=== PATIENT | male | born 1990 | race Caucasian/White ===

== ENCOUNTER 2016-11-10 12:44 | Inpatient (IN) | payer MEDICARE, OTHER ==
[~2016-11-10] VITALS: Ht 160 cm; Wt 249.1 kg
[~2016-11-10 12:44] MED LIST: ACET325S8 PO; BACL20TA PO; DIFFCHW PO; DUONI NEB; FLUC100T41 PO; FURO1TAB93 PO; HUMALOGP SQ; KLOR20TA6 PO; LANTUS2P SQ; LEVO50TA4 PO; LEXA20TA PO; MAGN1SOL2 PO; MORP100T40 PO; NYST100024 TOP; OMEP20TA PO; OXYB5 PO; RIVA20 PO; ROXI30TA14 PO; SENN8.6T19 PO; SSD1CRE TOP; SUPETAB30 PO; VITA500C PO; WELLTAB39 PO; XANA2TAB2 PO; ZOLP10TA3 PO; [UNRECOGNIZED DRUG - CODE] IM; [UNRECOGNIZED DRUG - CODE] IVF; [UNRECOGNIZED DRUG - CODE] IVF; [UNRECOGNIZED DRUG - CODE] TOPICAL
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
[2016-11-10 14:04] VITALS: BP 121/58; PULSE 81; RESP 18; TEMP 98.4; O2SAT 95
[2016-11-10 14:07] VITALS: BP 121/85; PULSE 85; RESP 18; TEMP 98.4; O2SAT 96
[2016-11-10 14:50] LABS: AMPHETAMINE, URINE NEG (NEG); BARBITURATES, URINE NEG (NEG); COCAINE, URINE NEG (NEG)
[2016-11-10 14:54] LABS: AUTOMATED NEUTROPHIL # 7.6 TH/MM3 (1.8-7.7); BASOPHIL % 0.2 % (0.0-2.0); EOSINOPHIL # 0.3 TH/MM3 (0-0.4); EOSINOPHIL % 2.4 % (0.0-4.0); HEMATOCRIT 37.6 % (39.0-51.0); LYMPH % 26.4 % (9.0-44.0); MEAN CELL VOLUME 71.6 FL (80.0-100.0); MEAN CORPUSCULAR HEMOGLOBIN 22.7 PG (27.0-34.0); MEAN CORPUSCULAR HGB CONC 31.7 % (32.0-36.0); MONO % 4.5 % (0.0-8.0); NEUT % 66.5 % (16.0-70.0); PLATELET COUNT 388 TH/MM3 (150-450); RED BLOOD COUNT 5.25 MIL/MM3 (4.50-5.90); RED CELL DISTRIBUTION WIDTH 20.7 % (11.6-17.2); WHITE BLOOD COUNT 11.5 TH/MM3 (4.0-11.0)
[2016-11-10 14:57] LABS: HEMO FLAGS AUTO DIFF
[2016-11-10 15:13] LABS: ANION GAP 7 MEQ/L (5-15); AST (GOT) 9 U/L (15-37); BICARBONATE 30.4 MEQ/L (21.0-32.0); BLOOD UREA NITROGEN 22 MG/DL (7-18); CHLORIDE 95 MEQ/L (98-107); GLOMERULAR FILTRATION RATE 142 ML/MIN (>89); POTASSIUM 4.1 MEQ/L (3.5-5.1); SODIUM (NA) 132 MEQ/L (136-145)
[2016-11-10 15:17] LABS: ALKALINE PHOSPHATASE 106 U/L (45-117); ALT (GPT) 15 U/L (12-78); TOTAL BILIRUBIN ADULT 0.3 MG/DL (0.2-1.0)
[2016-11-10 15:33] LABS: PLATELET ESTIMATE SMEAR NORMAL (NORMAL); PLATELET MORPHOLOGY ENLARGED (NORMAL); SCAN/DIFF AUTO DIFF CONFIRMED
[2016-11-10] MEDS ORDERED: INSULIN HUMAN REGULAR 1,000 UNITS/10 ML VIAL SQ ONE (16:00)
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
[2016-11-10] MEDS ORDERED: MORP1TAB25 PO (18:47)
[2016-11-10] MEDS ORDERED: PROM25TA5 PO (18:47)
[2016-11-10] MEDS ORDERED: PERI0.126 SWISH-SPIT (18:47)
[2016-11-10] MEDS ORDERED: ROXI30TA14 PO (18:47)
[2016-11-10] MEDS ORDERED: MORP1TAB27 PO (18:47)
[2016-11-10] MEDS ORDERED: XANA2TAB2 PO (18:50)
[2016-11-10] MEDS ORDERED: TRAZ100T4 PO (18:50)
[2016-11-10] MEDS ORDERED: BUPR150XL PO (18:52)
[2016-11-10] MEDS ORDERED: ZANT150T2 PO (18:52)
[2016-11-10] MEDS ORDERED: WELLTAB39 PO (18:52)
[2016-11-10] MEDS ORDERED: NU-IRON PO (18:58)
[2016-11-10] MEDS ORDERED: AMBI10TA PO (18:58)
[2016-11-10] MEDS ORDERED: OXYB5TAB PO (18:58)
[2016-11-10] MEDS ORDERED: SIME80CH CHEW (18:58)
[2016-11-10] MEDS ORDERED: DIFFCHW PO (18:58)
[2016-11-10] MEDS ORDERED: THERTAB17 PO (19:04)
[2016-11-10] MEDS ORDERED: HUMALOG SQ (19:10)
[2016-11-10] MEDS ORDERED: C 50TAB PO (19:10)
[2016-11-10] MEDS ORDERED: SENN8.6T8 PO (19:10)
[2016-11-10] MEDS ORDERED: FURO1TAB60 PO (19:10)
[2016-11-10] MEDS ORDERED: ALBU0.08 NEB (19:10)
[2016-11-10] MEDS ORDERED: XARE20TA PO (19:18)
[2016-11-10] MEDS ORDERED: BACL20TA PO (19:18)
[2016-11-10] MEDS ORDERED: LANTUS2P SQ (19:18)
[2016-11-10] MEDS ORDERED: LEVO50TA4 PO (19:18)
[2016-11-10] MEDS ORDERED: MAPA325T PO (19:18)
[2016-11-10] MEDS ORDERED: POTA1TAB4 PO (19:18)
[2016-11-10] MEDS ORDERED: COLL30T TOPICAL (19:22)
[2016-11-10] MEDS ORDERED: LEXA20TA PO (19:22)
[2016-11-10] MEDS ORDERED: LIPI40TA PO (19:24)
[2016-11-10] MEDS ORDERED: ANTI1CRE6 TOPICAL (19:24)
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
[2016-11-10 20:56] VITALS: BP 122/61; PULSE 86; RESP 19; O2SAT 92
[2016-11-10 21:45] LABS: BACTERIA, URINE MANY /hpf; BLOOD, URINE NEG (NEG); CALCIUM OXALATE CRYSTALS,URINE OCC /hpf; GLUCOSE,URINE NEG (NEG); KETONE, URINE NEG (NEG); SQUAMOUS EPITHELIAL CELL URINE 1 /hpf (0-5); URINE COLOR YELLOW (YELLW/STRAW)
[2016-11-10 21:46] LABS: NITRITE,URINE POS (NEG)
[2016-11-11] VITALS (9 sets, daily range): BP systolic 111–140; BP diastolic 54–89; PULSE 88–104; RESP 6–21; O2SAT 96–100
--- NOTE | 2016-11-11 01:29 | HHI.HP ---
HPI Service [facility] Primary Care Physician No Primary Care Physician Admission Diagnosis Inability to Ambulate Diagnoses: Chief Complaint: Multiple wounds, catheter change Travel History International Travel<30 Days: No Contact w/Intl Traveler <30 Da: No Traveled to Known Affected Are: No History of Present Illness 25 y/o male with a history of paraplegia, neurogenic bladder, HTN, chronic reoccurring DVT, chronic pain, LAKA, sleep apnea, CHF was brought into the ED as a parker act because he was threatening staff and using a tazor. Patient is a resident at [facility]note 3] in [place] and he states staff and him were playing with a tazor. Staff said he was trying to harm the staff, but he states he was not trying to. He states he is miss treated there. He states for the last month he has felt fatigued and had nausea and vomiting almost every night. Only fever he had was 2 weeks ago. Denies diarrhea, chest pain or sob. He complains of hematuria and was told last year at [facility] he has gastric ulcers, but feels he is still bleeding. Last EGD done at [facility] was 2012. He states he has multiple wounds on his sacrum, back, right thigh and left hip, and has not had wound care in 2 weeks. Patient also states his Montelongo catheter has not been replaced in 3 months and last time it had to be replaced under cystoscopy. According to the ER physician [facility] has refused to take the patient back, placement may be difficult. Review of Systems Constitutional: COMPLAINS OF: Chills, DENIES: Fever Respiratory: DENIES: Cough, Sputum production, Shortness of breath Cardiovascular: DENIES: Chest pain, Lower Extremity Edema Gastrointestinal: COMPLAINS OF: Nausea, Vomiting, DENIES: Diarrhea Genitourinary: COMPLAINS OF: Urinary incontinence, Hematuria Musculoskeletal: COMPLAINS OF: Back pain (chronic), Neck pain Integumentary: DENIES: Rash Hematologic/lymphatic: DENIES: Lymphadenopathy Immunologic/allergic: DENIES: Urticaria Neurologic: DENIES: Headache Past Family Social History Past Medical History Sleep apnea CHF HTN CAD Neurogenic bladder DM HLD Hypothyroid Past Surgical History LAKA Tonsilectomy T12 with multiple surgeries Right pinky toe amputation Reported Medications Reported Meds & Active Scripts Active Reported Lipitor (Atorvastatin Calcium) 40 Mg Tab 40 Mg PO DAILY Anti-Fungal (Clotrimazole (Topical)) 1 % Cre 1 Applic TOPICAL DAILY PRN Santyl Topical (Collagenase) 250 Unit/Gm Oint 1 Applic TOPICAL DAY SHIFT Lexapro (Escitalopram Oxalate) 20 Mg Tab 20 Mg PO HS Mapap (Acetaminophen) 325 Mg Tab 650 Mg PO Q6HR PRN Xarelto (Rivaroxaban) 20 Mg Tab 20 Mg PO HS Levothyroxine (Levothyroxine Sodium) 50 Mcg Tab 50 Mcg PO DAILY Lantus Inj (Insulin Glargine) 1,000 Unit/10 Ml Vial 55 Units SQ HS Baclofen 20 Mg Tab 20 Mg PO Q6HR PRN K-Tab (Potassium Chloride) 20 Meq Tab 20 Meq PO DAILY Humalog Inj (Insulin Human Lispro) 1,000 Unit/10 Ml Vial 3-15 Units SQ ACHS Max dose at bedtime:( )units; sugars 70-150,(0)units; sugars 151-200,(3)units; sugars 201-250,(5)units; sugars 251-300,(8)units; sugars 301-350,(10)units; sugars 351-400, (12)units; sugars 401-500, (15)units. Lasix (Furosemide) 40 Mg Tab 40 Mg PO BID Albuterol Neb (Albuterol Sulfate) 2.5 Mg/3 Ml Neb 2.5 Mg NEB Q6HR PRN While awake C 500 (Ascorbic Acid) 500 Mg Tab 500 Mg PO BID Senna S (Sennosides-Docusate Sodium) 8.6-50 Mg Tab 1 Tab PO BID Thera-M (Multiple Vitamins W/ Minerals) 1 Tab 1 Tab PO DAILY Ambien (Zolpidem Tartrate) 10 Mg Tab 10 Mg PO HS Diff-Stat (Probiotic Product) 1 Cap Cap 2 Cap PO HS Simethicone 80 Mg Chw 160 Mg CHEW ACHS PRN Oxybutynin ER 24 HR (Oxybutynin Chloride) 5 Mg Tab 5 Mg PO HS Poly-Iron 150 (Polysaccharide Iron Complex) 150 Mg Cap 150 Mg PO BID Wellbutrin Xl 24 HR (Bupropion HCl) 150 Mg Tab 150 Mg PO DAILY Wellbutrin Xl 24 HR (Bupropion HCl) 300 Mg Tab 300 Mg PO DAILY Zantac (Ranitidine HCl) 150 Mg Tab 150 Mg PO DAILY Trazodone (Trazodone HCl) 100 Mg Tab 200 Mg PO HS Xanax (Alprazolam) 2 Mg Tab 2 Mg PO Q6HR PRN Morphine ER (Morphine Sulfate) 30 Mg Tab 30 Mg PO Q8H Morphine ER (Morphine Sulfate) 100 Mg Tab 100 Mg PO Q8H Roxicodone (Oxycodone HCl) 30 Mg Tab 30 Mg PO Q4HR PRN Peridex Liq (Chlorhexidine Gluconate (Mouth) Liq) 0.12% Soln 10 Ml SWISH-SPIT BID PRN Phenergan (Promethazine HCl) 25 Mg Tab 25 Mg PO Q8HR PRN Allergies: Coded Allergies: Adhesives (Verified Allergy, Severe, 11/10/16) Azactam (Verified Allergy, Mild, rash, 11/10/16) Mild localized rash. Confirm with patient on January 11, 2016. Clindamycin (Verified Allergy, Mild, rash, 11/10/16) Mild localized rash. Confirm with patient on January 11, 2016. Penicillin (Verified Allergy, Mild, rash, 11/10/16) Mild localized rash. Confirm with patient on January 11, 2016. *MDRO Multi-Drug Resistant Organism (Verified Adverse Reaction, Unknown, ) E. coli ESBL positive (urine) - 07/2012 MRSA (foot- 10/27/15),(blood-12/2015),(ankle-04/16/16); MRSA PCR (nares) positive - 01/10/16; ESBL+Klebsiella Pneumoniae & VRE (urine-05/23/16) Uncoded Allergies: CEFEPIME (Allergy, Mild, Rash, 01/11/16) Mild localized rash. Confirm with patient on January 11, 2016. Active Ordered Medications Current Medications Medications (Trade) Dose Ordered Sig/Shyam Route Start Time Stop Time Status Last Admin (NS Flush) 2 ml UNSCH PRN IV FLUSH 11/10/16 21:45 (NS Flush) 2 ml BID IV FLUSH 11/11/16 09:00 (Narcan Inj) 0.4 mg UNSCH PRN IV 11/10/16 21:45 Family History Family history significant for heart disease and diabetes. DAD: DM Mom: DM Maternal Grandma: heart disease Social History Tobacco use: E cig Alcohol use: Denies Illicit drug use: Marijuana Physical Exam Vital Signs Vital Signs Date Time Temp Pulse Resp B/P Pulse Ox O2 Delivery O2 Flow Rate FiO2 11/10/16 20:56 86 19 122/61 92 11/10/16 14:07 98.4 85 18 121/85 96 Room Air 11/10/16 14:04 98.4 81 18 121/58 95 Physical Exam GENERAL: This is a well-nourished, well-developed patient, in no apparent distress. SKIN: No rashes, ecchymoses or lesions. Cool and dry. HEAD: Atraumatic. Normocephalic. No temporal or scalp tenderness. EYES: Pupils equal round and reactive. Extraocular motions intact. No scleral icterus. No injection or drainage. ENT: Nose without bleeding, purulent drainage or septal hematoma. Throat without erythema, tonsillar hypertrophy or exudate. Uvula midline. Airway patent. NECK: Trachea midline. No JVD or lymphadenopathy. Supple, nontender, no meningeal signs. CARDIOVASCULAR: Regular rate and rhythm without murmurs, gallops, or rubs. RESPIRATORY: Clear to auscultation. Breath sounds equal bilaterally. No wheezes , rales, or rhonchi. GASTROINTESTINAL: Abdomen soft, non-tender, nondistended. No hepato-splenomegaly , or palpable masses. No guarding. MUSCULOSKELETAL: Extremities without clubbing, cyanosis, or edema. No joint tenderness, effusion, or edema noted. No calf tenderness. Negative Homans sign bilaterally. NEUROLOGICAL: Awake and alert. Cranial nerves II through XII intact. Motor and sensory grossly within normal limits. Five out of 5 muscle strength in all muscle groups. Normal speech. Laboratory Laboratory Tests Test 11/10/16 11/10/16 11/10/16 14:26 14:35 21:00 Urine Opiates Screen POS Urine Barbiturates Screen NEG Urine Amphetamines Screen NEG Urine Benzodiazepines Screen POS Urine Cocaine Screen NEG Urine Cannabinoids Screen POS White Blood Count 11.5 Red Blood Count 5.25 Hemoglobin 11.9 Hematocrit 37.6 Mean Corpuscular Volume 71.6 Mean Corpuscular Hemoglobin 22.7 Mean Corpuscular Hemoglobin 31.7 Concent Red Cell Distribution Width 20.7 Platelet Count 388 Mean Platelet Volume 8.2 Neutrophils (%) (Auto) 66.5 Lymphocytes (%) (Auto) 26.4 Monocytes (%) (Auto) 4.5 Eosinophils (%) (Auto) 2.4 Basophils (%) (Auto) 0.2 Neutrophils # (Auto) 7.6 Lymphocytes # (Auto) 3.0 Monocytes # (Auto) 0.5 Eosinophils # (Auto) 0.3 Basophils # (Auto) 0.0 CBC Comment AUTO DIFF Differential Comment AUTO DIFF CONFIRMED Platelet Estimate NORMAL Platelet Morphology Comment ENLARGED Sodium Level 132 Potassium Level 4.1 Chloride Level 95 Carbon Dioxide Level 30.4 Anion Gap 7 Blood Urea Nitrogen 22 Creatinine 0.67 Estimat Glomerular Filtration 142 Rate Random Glucose 234 Calcium Level 9.6 Total Bilirubin 0.3 Aspartate Amino Transf 9 (AST/SGOT) Alanine Aminotransferase 15 (ALT/SGPT) Alkaline Phosphatase 106 Total Protein 8.3 Albumin 3.0 Urine Color YELLOW Urine Turbidity HAZY Urine pH 8.0 Urine Specific [place] 1.007 Urine Protein TRACE Urine Glucose (UA) NEG Urine Ketones NEG Urine Occult Blood NEG Urine Nitrite POS Urine Bilirubin NEG Urine Urobilinogen LESS THAN 2.0 Urine Leukocyte Esterase LARGE Urine RBC 1 Urine WBC 4 Urine Squamous Epithelial 1 Cells Urine Calcium Oxalate Crystals OCC Urine Bacteria MANY Microscopic Urinalysis Comment Result Diagram: 11/10/16 1435 11/10/16 1435 Assessment and Plan Problem List: (1) UTI (urinary tract infection) ICD Code: N39.0 Status: Acute (2) Chronic pain ICD Code: G89.29 Status: Chronic (3) Type 2 diabetes mellitus ICD Code: E11.9 Status: Chronic (4) Morbidly obese ICD Code: E66.01 Status: Chronic (5) Depression ICD Code: F32.9 Status: Chronic (6) Pressure ulcer ICD Code: L89.90 Status: Chronic (7) Sleep apnea ICD Code: G47.30 Status: Chronic (8) Hypothyroidism ICD Code: E03.9 Status: Chronic Assessment and Plan 25 y/o male with a history of paraplegia, neurogenic bladder, HTN, chronic reoccurring DVT, chronic pain, LAKA, sleep apnea, CHF was brought into the ED as a parker act because he was threatening staff and using a tazor. UTI UA shows large leukocyte esterase -Urine culture pending -Levaquin IV daily -Consult urology to replace Montelongo Diabetes, chronic -Accu-Cheks before meals and at bedtime -Diabetic diet -Restart home Medication Levemir Chronic pain -Restart home medications baclofen, morphine SR -Dilaudid IV for breakthrough Morbid obesity, chronic -Gen. surgery consult for gastric bypass recommendations Pressure ulcers, chronic -Consult wound care for recommendations Sleep apnea, chronic: CPAP@night Anxiety/depression, chronic: Restart home medications Wellbutrin, Lexapro, Xanax Hyperlipidemia, chronic: Restart home medications Lipitor Hypothyroidism, chronic: Restart home medications levothyroxine, check TSH DVT prophylaxis: Xarelto Written by Erika BABCOCK, acting as scribe for Dr. Garcia on 11/11/2016 at 0115. All or portions of this note were transcribed by scribe [Erika BABCOCK]. I , Dr. Gema Garcia personally performed the history, physical exam, and medical decision making; and confirmed the accuracy of the information in the transcribed note. Authenticated by Dr. Gema Garcia on 11/11/2016 at 0115. Discussed Condition With Patient, RN and ED physician Problem Qualifiers (1) Morbidly obese: Qualified Code: E66.01 - Morbid obesity, unspecified obesity type (2) Pressure ulcer: Erika Escobar Nov 11, 2016 01:29 Gema Garcia MD Nov 11, 2016 08:23
[2016-11-11] MEDS ORDERED: RESP: ALBUTEROL 2.5 MG/3 ML NEB (PRN) NEB (02:00)
[2016-11-11] MEDS ORDERED: CHLORHEXIDINE 0.12% (ORAL KIT) 15 ML CUP SWISH-SPIT PRN (02:00)
[2016-11-11] MEDS: MORPHINE SULFATE 100 MG CONTROLLED RELEASE TAB PO SCH ×3 (03:18→18:12)
[2016-11-11] MEDS: MORPHINE SULFATE 30 MG CONTROLLED RELEASE TAB PO SCH ×3 (03:19→18:12)
[2016-11-11] MEDS: HYDROmorphone HCL PF 1 MG/ML VIAL IV PUSH PRN ×3 (03:25→22:28)
[2016-11-11] MEDS: LEVOFLOXACIN 750 MG PREMIX INJ 150 ML IV SCH (03:25)
[2016-11-11 05:56] LABS: AUTOMATED NEUTROPHIL # 13.7 TH/MM3 (1.8-7.7); BASOPHIL # 0.1 TH/MM3 (0-0.2); BASOPHIL % 0.5 % (0.0-2.0); EOSINOPHIL # 0.2 TH/MM3 (0-0.4); HEMATOCRIT 36.6 % (39.0-51.0); LYMPHOCYTE # 2.2 TH/MM3 (1.0-4.8); MEAN CELL VOLUME 72.4 FL (80.0-100.0); MEAN CORPUSCULAR HEMOGLOBIN 23.3 PG (27.0-34.0); MEAN CORPUSCULAR HGB CONC 32.2 % (32.0-36.0); MONO % 4.8 % (0.0-8.0); NEUT % 80.7 % (16.0-70.0); PLATELET COUNT 369 TH/MM3 (150-450); RED BLOOD COUNT 5.06 MIL/MM3 (4.50-5.90); RED CELL DISTRIBUTION WIDTH 20.5 % (11.6-17.2)
[2016-11-11 06:02] LABS: HEMO FLAGS AUTO DIFF
[2016-11-11 06:24] LABS: BICARBONATE 31.1 MEQ/L (21.0-32.0); POTASSIUM 4.4 MEQ/L (3.5-5.1)
[2016-11-11 07:35] LABS: SCAN/DIFF AUTO DIFF CONFIRMED
[2016-11-11] MEDS ORDERED: buPROPion HCL 100 MG SUSTAINED RELEASE TAB PO SCH (09:00)
[2016-11-11] MEDS ORDERED: buPROPion HCL 150 MG EXTENDED RELEASE TAB PO SCH (09:00)
[2016-11-11] MEDS ORDERED: buPROPion HCL 150 MG SUSTAINED RELEASE TAB PO SCH (09:00)
[2016-11-11] MEDS: POTASSIUM CHLORIDE 20 MEQ CONTROLLED RELEASE TAB PO SCH (09:00)
[2016-11-11] MEDS: CLOTRIMAZOLE 1% CREAM 15 GM TOPICAL PRN (09:46)
[2016-11-11] MEDS: COLLAGENASE OINT 30 GM TUBE TOPICAL SCH ×2 (09:46→14:18)
[2016-11-11] MEDS: LEVOTHYROXINE SODIUM 50 MCG TAB PO SCH (09:46)
--- NOTE | 2016-11-11 12:39 | PD.CONS ---
HPI Service Urology Consult Requested By Primary Care Physician No Primary Care Physician Diagnosis: (1) UTI (urinary tract infection) ICD Code: N39.0 (2) Chronic pain ICD Code: G89.29 (3) Type 2 diabetes mellitus ICD Code: E11.9 (4) Morbidly obese ICD Code: E66.01 (5) Depression ICD Code: F32.9 (6) Pressure ulcer ICD Code: L89.90 (7) Sleep apnea ICD Code: G47.30 (8) Hypothyroidism ICD Code: E03.9 History of Present Illness Consult to replace an indwelling Montelongo and this 25-year-old morbidly obese male. Patient reports that the catheter was last changed approximately 3 months ago by his established urologist in the [facility]. He reports that the reason for the indwelling Montelongo is lack of mobility and urinary incontinence. Past Family Social History Past Medical History Hypothyroidism Depression Sleep apnea Diabetes mellitus Morbid obesity Past Surgical History No previous urologic surgery Reported Medications Refer to EMR Allergies: Coded Allergies: Adhesives (Verified Allergy, Severe, 11/10/16) Azactam (Verified Allergy, Mild, rash, 11/10/16) Mild localized rash. Confirm with patient on January 11, 2016. Clindamycin (Verified Allergy, Mild, rash, 11/10/16) Mild localized rash. Confirm with patient on January 11, 2016. Penicillin (Verified Allergy, Mild, rash, 11/10/16) Mild localized rash. Confirm with patient on January 11, 2016. *MDRO Multi-Drug Resistant Organism (Verified Adverse Reaction, Unknown, ) E. coli ESBL positive (urine) - 07/2012 MRSA (foot- 10/27/15),(blood-12/2015),(ankle-04/16/16); MRSA PCR (nares) positive - 01/10/16; ESBL+Klebsiella Pneumoniae & VRE (urine-05/23/16) Uncoded Allergies: CEFEPIME (Allergy, Mild, Rash, 01/11/16) Mild localized rash. Confirm with patient on January 11, 2016. Family History Heart disease Diabetes mellitus Social History Denies tobacco, alcohol or intravenous drug abuse Physical Exam Vital Signs Date Time Temp Pulse Resp B/P Pulse Ox O2 Delivery O2 Flow Rate FiO2 11/11/16 09:49 90 16 127/70 100 11/11/16 08:09 88 18 111/54 98 CPAP 15 11/11/16 06:00 104 19 136/82 99 CPAP 11/11/16 03:00 Full Face Mask 40.0 11/11/16 00:34 102 21 134/89 98 Room Air 11/10/16 20:56 86 19 122/61 92 11/10/16 14:07 98.4 85 18 121/85 96 Room Air 11/10/16 14:04 98.4 81 18 121/58 95 Physical Exam GENERAL: Morbidly obese male in no apparent distress. SKIN: No rashes, ecchymoses or lesions. Cool and dry. HEAD: Atraumatic. Normocephalic. No temporal or scalp tenderness. EYES: Pupils equal round and reactive. Extraocular motions intact. No scleral icterus. No injection or drainage. ENT: Nose without bleeding or purulent drainage NECK: Trachea midline. No JVD or lymphadenopathy. Supple, nontender, no meningeal signs.i. GASTROINTESTINAL: Abdomen soft, non-tender GENITOURINARY: Indwelling Montelongo catheter appears to be out of position with leakage around catheter noted. MUSCULOSKELETAL: Extremities adequately perfused NEUROLOGICAL: Awake and alert. Cranial nerves II through XII intact. Normal speech. Laboratory Tests Test 11/10/16 11/10/16 11/10/16 11/11/16 14:26 14:35 21:00 05:24 Urine Opiates Screen POS Urine Barbiturates Screen NEG Urine Amphetamines Screen NEG Urine Benzodiazepines Screen POS Urine Cocaine Screen NEG Urine Cannabinoids Screen POS White Blood Count 11.5 17.0 Red Blood Count 5.25 5.06 Hemoglobin 11.9 11.8 Hematocrit 37.6 36.6 Mean Corpuscular Volume 71.6 72.4 Mean Corpuscular Hemoglobin 22.7 23.3 Mean Corpuscular Hemoglobin 31.7 32.2 Concent Red Cell Distribution Width 20.7 20.5 Platelet Count 388 369 Mean Platelet Volume 8.2 8.4 Neutrophils (%) (Auto) 66.5 80.7 Lymphocytes (%) (Auto) 26.4 13.0 Monocytes (%) (Auto) 4.5 4.8 Eosinophils (%) (Auto) 2.4 1.0 Basophils (%) (Auto) 0.2 0.5 Neutrophils # (Auto) 7.6 13.7 Lymphocytes # (Auto) 3.0 2.2 Monocytes # (Auto) 0.5 0.8 Eosinophils # (Auto) 0.3 0.2 Basophils # (Auto) 0.0 0.1 CBC Comment AUTO DIFF AUTO DIFF Differential Comment AUTO DIFF AUTO DIFF CONFIRMED CONFIRMED Platelet Estimate NORMAL Platelet Morphology Comment ENLARGED Sodium Level 132 132 Potassium Level 4.1 4.4 Chloride Level 95 93 Carbon Dioxide Level 30.4 31.1 Anion Gap 7 8 Blood Urea Nitrogen 22 19 Creatinine 0.67 0.65 Estimat Glomerular Filtration 142 147 Rate Random Glucose 234 197 Calcium Level 9.6 9.0 Total Bilirubin 0.3 Aspartate Amino Transf 9 (AST/SGOT) Alanine Aminotransferase 15 (ALT/SGPT) Alkaline Phosphatase 106 Total Protein 8.3 Albumin 3.0 Urine Color YELLOW Urine Turbidity HAZY Urine pH 8.0 Urine Specific [place] 1.007 Urine Protein TRACE Urine Glucose (UA) NEG Urine Ketones NEG Urine Occult Blood NEG Urine Nitrite POS Urine Bilirubin NEG Urine Urobilinogen LESS THAN 2.0 Urine Leukocyte Esterase LARGE Urine RBC 1 Urine WBC 4 Urine Squamous Epithelial 1 Cells Urine Calcium Oxalate Crystals OCC Urine Bacteria MANY Microscopic Urinalysis Comment Thyroid Stimulating Hormone 2.240 3rd Gen Result Diagram: 11/11/1652311/11/16523 Hospital Course A sensor 0.38 wire was advanced through the previously placed [place] Montelongo and the catheter removed. A new [address] [place] [address] [place] Montelongo was then advanced over the wire without difficulty. 10 cc sterile water was instilled into the balloon and the wire withdrawn. The catheter was connected to a new drainage bag with clear return. Assessment and Plan Assessment and Plan Urologic impression: 25-year-old morbidly obese male with urinary incontinence related to poor mobility and being managed with an indwelling Montelongo catheter. Recommendations: #1 Montelongo catheter replaced at the bedside today #2 patient to follow up with his established urologist in the [place] area after discharge #3 will be available as needed Problem Qualifiers (1) Morbidly obese: Qualified Code: E66.01 - Morbid obesity, unspecified obesity type (2) Pressure ulcer: Claude Meraz MD Nov 11, 2016 12:39
[2016-11-11] MEDS: buPROPion HCL 150 MG SUSTAINED RELEASE TAB PO SCH ×2 (12:44→21:00)
[2016-11-11] MEDS: FUROSEMIDE 40 MG TAB PO SCH (12:44)
[2016-11-11] MEDS: FAMOTIDINE 20 MG TAB PO SCH (12:44)
[2016-11-11] MEDS: SODIUM CHLORIDE 0.9% FLUSH 10 ML FLUSH IV FLUSH SCH ×2 (12:44→22:30)
[2016-11-11] MEDS: ATORVASTATIN 40 MG TAB PO SCH (12:44)
[2016-11-11] MEDS: ASCORBIC ACID 500 MG TAB PO SCH (12:44)
[2016-11-11] MEDS: ALPRAZolam 1 MG TAB PO PRN (15:18)
[2016-11-11] MEDS: SODIUM CHLORIDE 0.9% FLUSH 10 ML FLUSH IV FLUSH PRN (15:19)
[2016-11-11] MEDS: TOLTERODINE TARTRATE 2 MG CAP LA PO SCH (21:00)
[2016-11-12] VITALS (7 sets, daily range): BP systolic 120–135; BP diastolic 51–69; PULSE 87–102; RESP 16–20; TEMP 96.7–97.8; O2SAT 10–100
[2016-11-12] MEDS: MORPHINE SULFATE 100 MG CONTROLLED RELEASE TAB PO SCH ×3 (02:00→17:14)
[2016-11-12] MEDS: INSULIN DETEMIR 100 UNITS/ML VIAL SQ SCH ×2 (02:10→23:56)
[2016-11-12] MEDS: FUROSEMIDE 40 MG TAB PO SCH ×3 (02:10→23:46)
[2016-11-12] MEDS: ZOLPIDEM TARTRATE 10 MG TAB PO SCH ×2 (02:10→23:45)
[2016-11-12] MEDS: MORPHINE SULFATE 30 MG CONTROLLED RELEASE TAB PO SCH ×3 (03:20→17:14)
[2016-11-12] MEDS: ALPRAZolam 1 MG TAB PO PRN ×4 (03:21→23:45)
[2016-11-12] MEDS: LEVOFLOXACIN 750 MG PREMIX INJ 150 ML IV SCH (03:21)
[2016-11-12] MEDS: ONDANSETRON HCL 4 MG/2 ML VIAL IV PUSH PRN (03:36)
[2016-11-12] MEDS: COLLAGENASE OINT 30 GM TUBE TOPICAL SCH ×3 (05:09→23:50)
[2016-11-12] MEDS: LEVOTHYROXINE SODIUM 50 MCG TAB PO SCH (05:09)
[2016-11-12] MEDS: HYDROmorphone HCL PF 1 MG/ML VIAL IV PUSH PRN ×3 (05:09→17:15)
[2016-11-12 07:58] LABS: AUTOMATED NEUTROPHIL # 9.6 TH/MM3 (1.8-7.7); BASOPHIL # 0.1 TH/MM3 (0-0.2); BASOPHIL % 0.5 % (0.0-2.0); EOSINOPHIL # 0.2 TH/MM3 (0-0.4); EOSINOPHIL % 1.4 % (0.0-4.0); LYMPH % 15.6 % (9.0-44.0); MEAN CELL VOLUME 72.1 FL (80.0-100.0); MEAN CORPUSCULAR HEMOGLOBIN 22.8 PG (27.0-34.0); MEAN CORPUSCULAR HGB CONC 31.7 % (32.0-36.0); MONO % 7.3 % (0.0-8.0); NEUT % 75.2 % (16.0-70.0); PLATELET COUNT 296 TH/MM3 (150-450); RED BLOOD COUNT 4.99 MIL/MM3 (4.50-5.90); RED CELL DISTRIBUTION WIDTH 20.3 % (11.6-17.2); WHITE BLOOD COUNT 12.8 TH/MM3 (4.0-11.0)
[2016-11-12 08:02] LABS: HEMO FLAGS AUTO DIFF
[2016-11-12 08:28] LABS: BICARBONATE 30.8 MEQ/L (21.0-32.0); POTASSIUM 3.5 MEQ/L (3.5-5.1)
[2016-11-12] MEDS: SODIUM CHLORIDE 0.9% FLUSH 10 ML FLUSH IV FLUSH SCH ×2 (09:00→21:00)
[2016-11-12] MEDS: POTASSIUM CHLORIDE 20 MEQ CONTROLLED RELEASE TAB PO SCH (09:05)
[2016-11-12] MEDS: ASCORBIC ACID 500 MG TAB PO SCH ×2 (09:06→23:46)
[2016-11-12] MEDS: buPROPion HCL 150 MG SUSTAINED RELEASE TAB PO SCH ×2 (09:06→23:45)
[2016-11-12] MEDS: ATORVASTATIN 40 MG TAB PO SCH (09:06)
[2016-11-12] MEDS: FAMOTIDINE 20 MG TAB PO SCH (09:06)
[2016-11-12 09:33] LABS: SCAN/DIFF AUTO DIFF CONFIRMED
--- NOTE | 2016-11-12 11:13 | HHI.PR ---
Subjective Remarks Patient seen and examined this morning. His vitals are stable and the patient is afebrile. There were no overnight events. He is non ambulatory, not able to role over, but can sit up. Patient states, "No one will let me sleep." Objective Vital Signs Date Time Temp Pulse Resp B/P Pulse Ox O2 Delivery O2 Flow Rate FiO2 11/12/16 10:18 16 11/12/16 10:18 16 11/12/16 10:18 16 11/12/16 07:58 97.4 102 16 127/69 100 11/12/16 07:19 98 11/12/16 04:00 97.3 87 20 135/68 98 11/12/16 00:10 100 40 11/11/16 22:22 99 19 127/63 98 Room Air 11/11/16 18:12 93 16 117/58 96 Room Air 11/11/16 14:00 90 18 140/68 96 Room Air 11/11/16 13:02 100 I/O 11/11/16 11/11/16 11/11/16 11/12/16 11/12/16 11/12/16 07:00 15:00 23:00 07:00 15:00 23:00 Intake Total 480 ml 600 ml Output Total 800 ml Balance 480 ml -200 ml Intake Oral 480 ml 600 ml Output Urine Total 800 ml # Voids 0 Result Diagram: 11/12/16 0710 11/12/16 0710 Objective Remarks GENERAL: morbidly obese male laying in bed, bipap on HEAD: Atraumatic. Normocephalic. EYES: Pupils equal and round. No scleral icterus. No injection or drainage. ENT: No nasal bleeding or discharge. Mucous membranes pink and moist. NECK: Trachea midline. No JVD. CARDIOVASCULAR: Regular rate and rhythm. RESPIRATORY: No accessory muscle use. Clear to auscultation. Breath sounds equal bilaterally. GASTROINTESTINAL: Abdomen soft, non-tender, nondistended. Hepatic and splenic margins not palpable. MUSCULOSKELETAL: Left AKA. NEUROLOGICAL: Awake and alert. Normal speech. PSYCHIATRIC: Appropriate mood and affect; insight and judgment normal. A/P Problem List: (1) Paraplegia ICD Code: G82.20 (2) Morbid obesity ICD Code: E66.01 (3) Unspecified personality disorder ICD Code: F60.9 (4) PTSD (post-traumatic stress disorder) ICD Code: F43.10 (5) Adult antisocial behavior ICD Code: Z72.811 (6) Type 2 diabetes mellitus ICD Code: E11.9 (7) Hypothyroidism ICD Code: E03.9 (8) Depression ICD Code: F32.9 (9) Diabetes ICD Code: E11.9 (10) UTI (urinary tract infection) ICD Code: N39.0 Assessment and Plan This is a 25-year-old male patient with a medical history significant for paraplegia, neurogenic bladder, hypertension, chronic recurrent DVT, chronic pain, sleep apnea, CHF who was brought to the ED yesterday under Felipe act due to threatening staff at his nursing facility. 1. UTI: UA significant for large leuk esterase. Dr. Meraz urology was consulted to assist with placement of a indwelling Montelongo for this morbidly obese patient. The patient is on IV Levaquin 11/11. Urine cultures pending and antibiotics will be tailored pending those results. Gram negative neal. 2. Diabetes: Accu-Cheks, diabetic diet, home Levemir 55 units hs, sliding scale. 3. Chronic pain. Home medications baclofen, morphine, Dilaudid IV for breakthrough pain 4. Morbid obesity: General surgery was consulted yesterday by admitting team for gastric bypass recommendations. This is likely something that will have to be managed as an outpatient. 5. Chronic pressure ulcers: Wound care was consulted. Discussed with nurse. Documented on admission. 6. Sleep apnea, CPAP at night 7. Anxiety and depression: Home medications Wellbutrin, Lexapro, Xanax. Was evaluated by psych in the ER, Destinee acted lifted, did not meet inpatient psychiatric and admission criteria. We'll continue his outpatient psychiatric care upon discharge. 8. Hyperlipidemia: Continue Lipitor 9. Hypothyroidism: Continue levothyroxine 10. substance use: tox screen on admission significant for opiates, benzos, cannabinoids DVT prolphylaxis: Patient is currently on Xarelto for his recurrent DVTs Fluids: HLIV Electronic: currently wnl Nutrition: Diabetic diet He cannot return to the nursing facility he was living at, will need to find placement for him. Discharge Planning DC pending results of urine culture and stabilization of mood. Problem Qualifiers (1) Diabetes: Qualified Code: E13.8 - Other specified diabetes mellitus with complication, with long-term current use of insulin Maribell Merritt MD R3 Nov 12, 2016 11:13
[2016-11-12] MEDS ORDERED: DEXTROSE 50% IN WATER 50 ML VIAL(D50) IV PUSH PRN (11:45)
[2016-11-12] MEDS ORDERED: GLUCAGON 1 MG/ML VIAL OTHER PRN (11:45)
[2016-11-12] MEDS: INSULIN ASPART SUPPLEMENTAL SCALE SQ SCH ×2 (16:00→21:00)
[2016-11-12] MEDS: traZODone HCL 100 MG TAB PO SCH ×2 (21:00→23:46)
[2016-11-12] MEDS: ESCITALOPRAM OXALATE 20 MG TAB PO SCH ×2 (21:00→23:46)
[2016-11-12] MEDS: RIVAROXABAN 20 MG TAB PO SCH ×2 (21:00→23:46)
[2016-11-12] MEDS: TOLTERODINE TARTRATE 2 MG CAP LA PO SCH (23:46)
[2016-11-13] VITALS: BP 125/81; PULSE 109; RESP 18; TEMP 97.7; O2SAT 93
[2016-11-13 00:29] VITALS: O2SAT 99
[2016-11-13] MEDS: HYDROmorphone HCL PF 1 MG/ML VIAL IV PUSH PRN ×5 (00:36→21:42)
[2016-11-13] MEDS: SODIUM CHLORIDE 0.9% FLUSH 10 ML FLUSH IV FLUSH SCH ×2 (00:37→21:42)
[2016-11-13] MEDS: MORPHINE SULFATE 100 MG CONTROLLED RELEASE TAB PO SCH ×3 (02:37→18:08)
[2016-11-13] MEDS: MORPHINE SULFATE 30 MG CONTROLLED RELEASE TAB PO SCH ×3 (02:37→18:08)
[2016-11-13] MEDS: LEVOFLOXACIN 750 MG PREMIX INJ 150 ML IV SCH (02:37)
[2016-11-13] MEDS: SIMETHICONE 80 MG CHEWABLE TAB CHEW PRN (02:43)
[2016-11-13] MEDS: BACLOFEN 20 MG TAB PO PRN ×3 (02:43→15:24)
[2016-11-13] MEDS: INSULIN ASPART SUPPLEMENTAL SCALE SQ SCH ×4 (07:00→21:00)
[2016-11-13] MEDS: COLLAGENASE OINT 30 GM TUBE TOPICAL SCH ×3 (07:01→23:00)
[2016-11-13] MEDS: LEVOTHYROXINE SODIUM 50 MCG TAB PO SCH (07:01)
[2016-11-13 08:00] VITALS: BP 133/61; PULSE 88; RESP 18; O2SAT 97
[2016-11-13] MEDS: buPROPion HCL 150 MG SUSTAINED RELEASE TAB PO SCH ×2 (09:02→21:17)
[2016-11-13] MEDS: ATORVASTATIN 40 MG TAB PO SCH (09:03)
[2016-11-13] MEDS: ASCORBIC ACID 500 MG TAB PO SCH ×2 (09:03→21:18)
[2016-11-13] MEDS: FAMOTIDINE 20 MG TAB PO SCH (09:03)
[2016-11-13] MEDS: POTASSIUM CHLORIDE 20 MEQ CONTROLLED RELEASE TAB PO SCH (09:03)
[2016-11-13] MEDS: FUROSEMIDE 40 MG TAB PO SCH ×2 (09:03→21:18)
[2016-11-13] MEDS: ALPRAZolam 1 MG TAB PO PRN ×3 (09:13→23:02)
[2016-11-13 09:38] LABS: AUTOMATED NEUTROPHIL # 6.6 TH/MM3 (1.8-7.7); BASOPHIL # 0.1 TH/MM3 (0-0.2); BASOPHIL % 0.9 % (0.0-2.0); EOSINOPHIL # 0.3 TH/MM3 (0-0.4); EOSINOPHIL % 3.1 % (0.0-4.0); HEMATOCRIT 35.9 % (39.0-51.0); LYMPH % 19.8 % (9.0-44.0); LYMPHOCYTE # 1.9 TH/MM3 (1.0-4.8); MEAN CELL VOLUME 72.1 FL (80.0-100.0); MEAN CORPUSCULAR HEMOGLOBIN 23.1 PG (27.0-34.0); MONO % 8.9 % (0.0-8.0); NEUT % 67.3 % (16.0-70.0); PLATELET COUNT 271 TH/MM3 (150-450); RED BLOOD COUNT 4.97 MIL/MM3 (4.50-5.90); RED CELL DISTRIBUTION WIDTH 20.3 % (11.6-17.2); WHITE BLOOD COUNT 9.8 TH/MM3 (4.0-11.0)
[2016-11-13 09:39] LABS: HEMO FLAGS AUTO DIFF
[2016-11-13 09:50] LABS: BICARBONATE 31.3 MEQ/L (21.0-32.0); POTASSIUM 3.5 MEQ/L (3.5-5.1)
[2016-11-13 10:21] LABS: SCAN/DIFF AUTO DIFF CONFIRMED
--- NOTE | 2016-11-13 10:25 | HHI.PR ---
Subjective Remarks Patient seen and examined this morning. His vitals are stable and the patient is afebrile. There were no overnight events. Is requesting a larger diet and more protein. Kyle is leaking. Patient states the doctors usually "require a camera because of the extra pocket" to place the kyle successfully. The patient expresses much concern about his nursing facility, feels he wasnt getting good care but likes the location because of family near by. He reports he has filed a case with DCF. Objective Vital Signs Date Time Temp Pulse Resp B/P Pulse Ox O2 Delivery O2 Flow Rate FiO2 11/13/16 08:10 16 11/13/16 08:00 88 18 133/61 97 11/13/16 00:29 99 40 11/13/16 00:00 97.7 109 18 125/81 93 11/12/16 20:00 96.7 101 17 120/51 90 11/12/16 17:45 16 11/12/16 17:45 16 11/12/16 12:57 10 40 11/12/16 12:00 97.8 88 16 134/69 100 I/O 11/12/16 11/12/16 11/12/16 11/13/16 11/13/16 11/13/16 07:00 15:00 23:00 07:00 15:00 23:00 Intake Total 600 ml 120 ml 480 ml Output Total 800 ml 2200 ml 750 ml 1305 ml Balance -200 ml -2200 ml -630 ml -825 ml Intake Oral 600 ml 120 ml 480 ml Output Urine Total 800 ml 2200 ml 750 ml 1305 ml # Bowel Movements 0 Result Diagram: 11/13/16 0800 11/13/16 0800 Objective Remarks GENERAL: morbidly obese male laying in bed, bipap on HEAD: Atraumatic. Normocephalic. Skin: ulceration 3-4 cm on right lower extremity chronic per patient from where he puts his plate of chicken , healed scab on back midline EYES: Pupils equal and round. No scleral icterus. No injection or drainage. ENT: No nasal bleeding or discharge. Mucous membranes pink and moist. NECK: Trachea midline. No JVD. CARDIOVASCULAR: Regular rate and rhythm. RESPIRATORY: No accessory muscle use. Clear to auscultation. Breath sounds equal bilaterally. GASTROINTESTINAL: Abdomen soft, non-tender, nondistended. Hepatic and splenic margins not palpable. MUSCULOSKELETAL: Left AKA. NEUROLOGICAL: Awake and alert. Normal speech. PSYCHIATRIC: Appropriate mood and affect; insight and judgment normal. A/P Problem List: (1) Paraplegia ICD Code: G82.20 (2) Morbid obesity ICD Code: E66.01 (3) Unspecified personality disorder ICD Code: F60.9 (4) PTSD (post-traumatic stress disorder) ICD Code: F43.10 (5) Adult antisocial behavior ICD Code: Z72.811 (6) Type 2 diabetes mellitus ICD Code: E11.9 (7) Hypothyroidism ICD Code: E03.9 (8) Depression ICD Code: F32.9 (9) Diabetes ICD Code: E11.9 (10) UTI (urinary tract infection) ICD Code: N39.0 Assessment and Plan This is a 25-year-old male patient with a medical history significant for paraplegia, neurogenic bladder, hypertension, chronic recurrent DVT, chronic pain, sleep apnea, CHF who was brought to the ED yesterday under Felipe act due to threatening staff at his nursing facility. 1. UTI: UA significant for large leuk esterase. Dr. Meraz urology was consulted to assist with placement of a indwelling Kyle for this morbidly obese patient with neurogenic bladder, kyle is malfunctioning, nurse will reach out to Mariya to assist with kyle. The patient is on IV Levaquin 11/11. Urine cultures gram negative rods sensitivities pending, antibiotics will be tailored pending those results. G 2. Diabetes: Accu-Cheks, diabetic diet, home Levemir 55 units hs, sliding scale. 3. Chronic pain. Home medications baclofen, morphine, Dilaudid IV for breakthrough pain 4. Morbid obesity: General surgery was consulted yesterday by admitting team for gastric bypass recommendations. This is likely something that will have to be managed as an outpatient. 5. Chronic pressure ulcers: Wound care was consulted. Discussed with nurse. Documented on admission. 6. Sleep apnea, CPAP at night 7. Anxiety and depression: Home medications Wellbutrin, Lexapro, Xanax. Was evaluated by psych in the ER, Destinee acted lifted, did not meet inpatient psychiatric and admission criteria. We'll continue his outpatient psychiatric care upon discharge. 8. Hyperlipidemia: Continue Lipitor 9. Hypothyroidism: Continue levothyroxine 10. substance use: tox screen on admission significant for opiates, benzos, cannabinoids DVT prophylaxis: Patient is currently on Xarelto for his recurrent DVTs Fluids: HLIV Electronic: currently wnl Nutrition: Diabetic diet Dispo: Once urine culture resulted the patient is medically stable for discharge. Unclear if the patient can return back to the [facility] from [facility]. If not he will require placement. Case management has been consulted. Discharge Planning DC pending results of urine culture and placement. Problem Qualifiers (1) Diabetes: Qualified Code: E13.8 - Other specified diabetes mellitus with complication, with long-term current use of insulin Maribell Merritt MD R3 Nov 13, 2016 10:25
[2016-11-13 12:00] VITALS: BP_SYST 120; BP_SYST 140; BP_DIAS 69; BP_DIAS 88; PULSE 80; PULSE 99; RESP 18; RESP 20; TEMP 97.6; TEMP 98.1; O2SAT 93; O2SAT 96
[2016-11-13] MEDS: MAGNESIUM CITRATE SOLN 300 ML BTL PO PRN (15:24)
[2016-11-13 16:00] VITALS: BP 104/57; PULSE 97; RESP 16; TEMP 98.4; O2SAT 88
[2016-11-13 20:00] VITALS: BP 113/59; PULSE 103; RESP 20; TEMP 96.3; O2SAT 96
[2016-11-13] MEDS: traZODone HCL 100 MG TAB PO SCH (21:17)
[2016-11-13] MEDS: ZOLPIDEM TARTRATE 10 MG TAB PO SCH (21:18)
[2016-11-13] MEDS: DOCUSATE SODIUM 100 MG CAP PO SCH (21:18)
[2016-11-13] MEDS: ESCITALOPRAM OXALATE 20 MG TAB PO SCH (21:18)
[2016-11-13] MEDS: RIVAROXABAN 20 MG TAB PO SCH (21:18)
[2016-11-13] MEDS: INSULIN DETEMIR 100 UNITS/ML VIAL SQ SCH (21:19)
[2016-11-13] MEDS: TOLTERODINE TARTRATE 2 MG CAP LA PO SCH (21:24)
[2016-11-13] MEDS: NYSTATIN 100,000 U/GM PWD 15 GM BTL TOPICAL SCH (21:42)
[2016-11-14] VITALS (7 sets, daily range): BP systolic 115–136; BP diastolic 56–69; PULSE 80–107; RESP 18–20; TEMP 96.6–98.8; O2SAT 93–99
[2016-11-14] MEDS: MORPHINE SULFATE 100 MG CONTROLLED RELEASE TAB PO SCH ×3 (01:45→17:55)
[2016-11-14] MEDS: MORPHINE SULFATE 30 MG CONTROLLED RELEASE TAB PO SCH ×3 (01:45→17:55)
[2016-11-14] MEDS: HYDROmorphone HCL PF 1 MG/ML VIAL IV PUSH PRN ×5 (01:46→22:23)
[2016-11-14] MEDS: LEVOFLOXACIN 750 MG PREMIX INJ 150 ML IV SCH (03:44)
[2016-11-14] MEDS: LEVOTHYROXINE SODIUM 50 MCG TAB PO SCH (06:05)
[2016-11-14] MEDS: INSULIN ASPART SUPPLEMENTAL SCALE SQ SCH ×4 (06:06→21:00)
[2016-11-14] MEDS: COLLAGENASE OINT 30 GM TUBE TOPICAL SCH ×4 (06:06→22:21)
[2016-11-14] MEDS: FAMOTIDINE 20 MG TAB PO SCH (09:32)
[2016-11-14] MEDS: DOCUSATE SODIUM 100 MG CAP PO SCH ×2 (09:35→22:19)
[2016-11-14] MEDS: buPROPion HCL 150 MG SUSTAINED RELEASE TAB PO SCH ×2 (09:36→21:00)
[2016-11-14] MEDS: POTASSIUM CHLORIDE 20 MEQ CONTROLLED RELEASE TAB PO SCH (09:36)
[2016-11-14] MEDS: ATORVASTATIN 40 MG TAB PO SCH (09:36)
[2016-11-14] MEDS: ASCORBIC ACID 500 MG TAB PO SCH ×2 (09:36→22:19)
[2016-11-14] MEDS: FUROSEMIDE 40 MG TAB PO SCH ×2 (09:38→22:19)
[2016-11-14] MEDS: SODIUM CHLORIDE 0.9% FLUSH 10 ML FLUSH IV FLUSH SCH ×2 (09:38→22:21)
[2016-11-14] MEDS: NYSTATIN 100,000 U/GM PWD 15 GM BTL TOPICAL SCH ×2 (09:39→22:21)
[2016-11-14] MEDS: SIMETHICONE 80 MG CHEWABLE TAB CHEW PRN (09:50)
[2016-11-14] MEDS: BACLOFEN 20 MG TAB PO PRN ×3 (09:50→23:48)
[2016-11-14] MEDS ORDERED: OXYC-395 PO (10:17)
[2016-11-14] MEDS ORDERED: MORP1TAB25 PO (10:17)
--- NOTE | 2016-11-14 10:22 | HHI.PR ---
Subjective Remarks Patient aggressive to increase his Dilaudid to 2 mg since that's what he used to have the hospital He's telling me he knows he will be here for a while because of DCFS are to the process I discussed with him stopping trazodone since he may interact with Lexapro and with Wellbutrin, however he refused and he said this is what helped him to sleep Patient told me he is not following up with psychiatry Objective Vitals Vital Signs Date Time Temp Pulse Resp B/P Pulse Ox O2 Delivery O2 Flow Rate FiO2 11/14/16 07:45 96.8 80 19 115/57 97 11/14/16 04:00 96.6 92 20 118/56 93 11/14/16 02:15 99 40 11/14/16 02:13 Full Face Mask 40.0 11/14/16 00:00 98.8 95 20 136/62 93 11/13/16 20:00 96.3 103 20 113/59 96 11/13/16 19:07 16 11/13/16 19:07 16 11/13/16 19:07 16 11/13/16 16:00 16 11/13/16 16:00 98.4 97 16 104/57 88 11/13/16 12:00 98.1 99 18 120/69 93 I/O 11/13/16 11/13/16 11/13/16 11/14/16 11/14/16 11/14/16 07:00 15:00 23:00 07:00 15:00 23:00 Intake Total 480 ml 480 ml 480 ml Output Total 1305 ml 550 ml 1000 ml 750 ml Balance -825 ml -550 ml 480 ml -520 ml -750 ml Intake Oral 480 ml 480 ml 480 ml Output Urine Total 1305 ml 550 ml 1000 ml 750 ml # Bowel Movements 0 Result Diagram: 11/13/16 0800 11/13/16 0800 Objective Remarks GENERAL: morbidly obese male, in no acute distress HEAD: Atraumatic. Normocephalic. Skin: Positive decubitus ulcer in gauze EYES: Pupils equal and round. No scleral icterus. No injection or drainage. ENT: No nasal bleeding or discharge. Mucous membranes pink and moist. NECK: Trachea midline. No JVD. CARDIOVASCULAR: Regular rate and rhythm. RESPIRATORY: No accessory muscle use. Clear to auscultation. Breath sounds equal bilaterally. GASTROINTESTINAL: Abdomen soft, non-tender, nondistended. Hepatic and splenic margins not palpable. MUSCULOSKELETAL: Left AKA. NEUROLOGICAL: Awake and alert. Normal speech. A/P Problem List: (1) UTI (urinary tract infection) ICD Code: N39.0 Status: Acute (2) Chronic pain ICD Code: G89.29 Status: Chronic (3) Type 2 diabetes mellitus ICD Code: E11.9 Status: Chronic (4) Morbidly obese ICD Code: E66.01 Status: Chronic (5) Depression ICD Code: F32.9 Status: Chronic (6) Pressure ulcer ICD Code: L89.90 Status: Chronic (7) Sleep apnea ICD Code: G47.30 Status: Chronic (8) Hypothyroidism ICD Code: E03.9 Status: Chronic Assessment and Plan 11/14: Urine culture came back for gram negatives rods, I switched Levaquin 2 by mouth 500 mg daily for 7 days, and I wanted to held trazodone due to risk of interacting with the Wellbutrin and Lexapro which can decrease seizure threshold , and increased risk of serotonin syndrome. However patient refused, will consult psychiatry They show stable for discharge once arrangement is done, discussed with counter caser Time spent including bedside discussion, preparing medication for discharge, reviewing labs, adjusting medication 50 minutes A/P: This is a 25-year-old male patient with a medical history significant for paraplegia, neurogenic bladder, hypertension, chronic recurrent DVT, chronic pain, sleep apnea, CHF who was brought to the ED yesterday under Felipe act due to threatening staff at his nursing facility. 1. UTI: UA significant for large leuk esterase. Dr. Meraz urology was consulted to assist with placement of a indwelling Kyle for this morbidly obese patient with neurogenic bladder, kyle is malfunctioning, nurse will reach out to Mariya to assist with kyle. The patient is on IV Levaquin 11/11. Urine cultures gram negative rods sensitivities pending, patient switched to Levaquin 500 milligrams by mouth for 7 days 2. Diabetes: Accu-Cheks, diabetic diet, home Levemir 55 units hs, sliding scale. 3. Chronic pain. Home medications baclofen, morphine, Dilaudid IV for breakthrough pain 4. Morbid obesity: General surgery was consulted yesterday by admitting team for gastric bypass recommendations. This is likely something that will have to be managed as an outpatient. 5. Chronic pressure ulcers: Wound care was consulted. Discussed with nurse. Documented on admission. 6. Sleep apnea, CPAP at night 7. Anxiety and depression: Home medications Wellbutrin, Lexapro, Xanax. Was evaluated by psych in the ER, Felipe acted lifted, did not meet inpatient psychiatric and admission criteria. We'll continue his outpatient psychiatric care upon discharge. I held trazodone due to risk of interacting with the Wellbutrin and Lexapro which can decrease seizure threshold, and increased risk of serotonin syndrome 8. Hyperlipidemia: Continue Lipitor 9. Hypothyroidism: Continue levothyroxine 10. substance use: tox screen on admission significant for opiates, benzos, cannabinoids DVT prophylaxis: Patient is currently on Xarelto for his recurrent DVTs Fluids: HLIV Dispo: Medically stable to be discharged to SNF, once arrangement is done by CM Discharge Planning Medically stable to be discharged to SNF once arrangement is done Problem Qualifiers (1) Morbidly obese: Qualified Code: E66.01 - Morbid obesity, unspecified obesity type (2) Pressure ulcer: Shamika Fairchild MD Nov 14, 2016 10:22
[2016-11-14] MEDS ORDERED: LEVA500T PO (10:23)
[2016-11-14] MEDS: ALPRAZolam 1 MG TAB PO PRN ×2 (11:30→17:54)
[2016-11-14 12:58] LABS: AUTOMATED NEUTROPHIL # 4.8 TH/MM3 (1.8-7.7); BASOPHIL # 0.1 TH/MM3 (0-0.2); BASOPHIL % 0.8 % (0.0-2.0); EOSINOPHIL # 0.2 TH/MM3 (0-0.4); EOSINOPHIL % 2.8 % (0.0-4.0); LYMPH % 23.3 % (9.0-44.0); LYMPHOCYTE # 1.7 TH/MM3 (1.0-4.8); MEAN CELL VOLUME 73.9 FL (80.0-100.0); MEAN CORPUSCULAR HEMOGLOBIN 23.3 PG (27.0-34.0); MEAN CORPUSCULAR HGB CONC 31.6 % (32.0-36.0); MONO % 8.1 % (0.0-8.0); PLATELET COUNT 251 TH/MM3 (150-450); RED BLOOD COUNT 4.86 MIL/MM3 (4.50-5.90); RED CELL DISTRIBUTION WIDTH 19.7 % (11.6-17.2); WHITE BLOOD COUNT 7.4 TH/MM3 (4.0-11.0)
[2016-11-14 12:59] LABS: HEMO FLAGS AUTO DIFF
[2016-11-14 13:18] LABS: BICARBONATE 30.3 MEQ/L (21.0-32.0); POTASSIUM 4.8 MEQ/L (3.5-5.1)
[2016-11-14 13:31] LABS: SCAN/DIFF AUTO DIFF CONFIRMED
--- NOTE | 2016-11-14 15:52 | HHI.PYPN ---
Subjective Remarks Patient was seen for psychiatric reevaluation today, he was found his bed, calm , cooperative and pleasant. Patient states that primary care doctor has expressed concern about polypharmacy, multiple medications that Interact with each other and potential side effects. Patient reports good mood, he denies suicidal or homicidal ideation, he denies visual and auditory hallucinations. Patient says that he does have problems sleeping without trazodone. He says that he has been in 3 antidepressant, trazodone, Wellbutrin and escitalopram for some months now, prescribed [facility] psychiatrist. Patient denies any significant side effects at this moment. He sees of the most recent addition to his psychotropic regimen was escitalopram "because I was very anxious in my living facility, but since I am not there anymore I feel fine". Patient is fully oriented 3, no gross cognitive impairment observed. No agitation, no aggressive behavior reported. Patient has been fully compliant with medications. Review of Systems Constitutional: DENIES: Diaphoretic episodes, Fatigue, Fever, Weight gain, Weight loss, Chills, Dizziness, Change in appetite, Night Sweats Endocrine: DENIES: Heat/cold intolerance, Polydipsia, Polyuria, Polyphagia Eyes: DENIES: Blurred vision, Diplopia, Eye inflammation, Eye pain, Vision loss , Photosensitivity, Double Vision Ears, nose, mouth, throat: DENIES: Tinnitus, Hearing loss, Vertigo, Nasal discharge, Oral lesions, Throat pain, Hoarseness, Ear Pain, Running Nose, Epistaxis, Sinus Pain, Toothache, Odynophagia Respiratory: DENIES: Apneas, Cough, Snoring, Wheezing, Hemoptysis, Sputum production, Shortness of breath Cardiovascular: DENIES: Chest pain, Palpitations, Syncope, Dyspnea on Exertion , PND, Lower Extremity Edema, Orthopnea, Claudication Gastrointestinal: DENIES: Abdominal pain, Black stools, Bloody stools, Constipation, Diarrhea, Nausea, Vomiting, Difficulty Swallowing, Anorexia Musculoskeletal: DENIES: Joint pain, Muscle aches, Stiffness, Joint Swelling, Back pain, Neck pain Integumentary: DENIES: Abnormal pigmentation, Nail changes, Pruritus, Rash Hematologic/lymphatic: DENIES: Bruising, Lymphadenopathy Immunologic/allergic: DENIES: Eczema, Urticaria Neurologic: DENIES: Abnormal gait, Headache, Localized weakness, Paresthesias, Seizures, Speech Problems, Tremor, Poor Balance Psychiatric: DENIES: Anxiety, Confusion, Mood changes, Depression, Hallucinations, Agitation, Suicidal Ideation, Homicidal Ideation, Delusions Objective Alert: Yes [place]: Person, Place, Date, Situation Mood: Calm Affect: Appropriate Memory Intact: Immediate, Recent, Remote Hallucinations: Other (none) Delusions: No Delusion Type: Other (none) Suicidal: Ideation (he denies) Homicidal: Ideation (he denies) Insight/Judgement Good Labs Test 11/14/16 12:00 White Blood Count 7.4 TH/MM3 Red Blood Count 4.86 MIL/MM3 Hemoglobin 11.3 GM/DL Hematocrit 36.0 % Mean Corpuscular Volume 73.9 FL Mean Corpuscular Hemoglobin 23.3 PG Mean Corpuscular Hemoglobin 31.6 % Concent Red Cell Distribution Width 19.7 % Platelet Count 251 TH/MM3 Mean Platelet Volume 9.1 FL Neutrophils (%) (Auto) 65.0 % Lymphocytes (%) (Auto) 23.3 % Monocytes (%) (Auto) 8.1 % Eosinophils (%) (Auto) 2.8 % Basophils (%) (Auto) 0.8 % Neutrophils # (Auto) 4.8 TH/MM3 Lymphocytes # (Auto) 1.7 TH/MM3 Monocytes # (Auto) 0.6 TH/MM3 Eosinophils # (Auto) 0.2 TH/MM3 Basophils # (Auto) 0.1 TH/MM3 CBC Comment AUTO DIFF Differential Comment AUTO DIFF CONFIRMED Sodium Level 136 MEQ/L Potassium Level 4.8 MEQ/L Chloride Level 96 MEQ/L Carbon Dioxide Level 30.3 MEQ/L Anion Gap 10 MEQ/L Blood Urea Nitrogen 14 MG/DL Creatinine 0.73 MG/DL Estimat Glomerular Filtration 129 ML/MIN Rate Random Glucose 259 MG/DL Calcium Level 8.6 MG/DL Date/Time Procedure Status Source Growth 11/10/16 21:00 Urine Culture - Final Complete Urine Catheterized Urine Vitals/IOs Vital Signs Date Time Temp Pulse Resp B/P Pulse Ox O2 Delivery O2 Flow Rate FiO2 11/14/16 12:30 16 11/14/16 11:50 96.7 107 124/60 96 11/14/16 02:15 40 11/11/16 22:22 Room Air 11/11/16 08:09 15 Intake and Output 4/2/17 4/2/17 4/3/17 08:00 16:00 00:00 Intake Total 480 ml 480 ml Output Total 1305 ml 550 ml Balance -825 ml -550 ml 480 ml Assessment & Plan Problem List: (1) Adult antisocial behavior ICD Code: Z72.811 (2) Unspecified personality disorder ICD Code: F60.9 (3) PTSD (post-traumatic stress disorder) Assessment & Plan: Patient seems to be psychiatrically stable, he denies depression, denies anxiety, he denies perceptual disturbances, he denies suicidal and homicidal ideation, he denies visual and auditory hallucinations. Will restart trazodone 100 mg at bedtime for depressive symptoms and insomnia, continue Wellbutrin 150 mg twice a day for depression, can continue Ambien 10 mg at bedtime for insomnia. We will discontinue Lexapro 20 mg due to concerns with polypharmacy, weight gain and medication interactions. Extensive psychoeducation, supportive motivation provided. ICD Code: F43.10 Assessment & Plan Estimated LOS: days Justification for Cont. Inpt. Patient does not meet criteria for psychiatric admission at this moment Luis Antonio Blanchard MD Nov 14, 2016 15:52
[2016-11-14] MEDS: MAGNESIUM CITRATE SOLN 300 ML BTL PO PRN (16:26)
[2016-11-14] MEDS: TOLTERODINE TARTRATE 2 MG CAP LA PO SCH (21:00)
[2016-11-14] MEDS: RIVAROXABAN 20 MG TAB PO SCH (22:19)
[2016-11-14] MEDS: INSULIN DETEMIR 100 UNITS/ML VIAL SQ SCH (22:20)
[2016-11-15] VITALS: BP 123/69; PULSE 101; RESP 20; TEMP 99; O2SAT 94
[2016-11-15] MEDS: ALPRAZolam 1 MG TAB PO PRN ×4 (01:30→20:59)
[2016-11-15] MEDS: traZODone HCL 100 MG TAB PO SCH ×2 (01:30→20:59)
[2016-11-15] MEDS: ZOLPIDEM TARTRATE 10 MG TAB PO SCH ×2 (01:30→20:57)
[2016-11-15] MEDS: MORPHINE SULFATE 30 MG CONTROLLED RELEASE TAB PO SCH ×3 (02:31→18:39)
[2016-11-15] MEDS: MORPHINE SULFATE 100 MG CONTROLLED RELEASE TAB PO SCH ×3 (02:31→18:39)
[2016-11-15] MEDS: HYDROmorphone HCL PF 1 MG/ML VIAL IV PUSH PRN ×4 (03:52→23:11)
[2016-11-15 04:00] VITALS: BP 109/70; PULSE 97; RESP 20; TEMP 97.3; O2SAT 92
[2016-11-15] MEDS: LEVOTHYROXINE SODIUM 50 MCG TAB PO SCH (05:38)
[2016-11-15] MEDS: COLLAGENASE OINT 30 GM TUBE TOPICAL SCH ×3 (05:39→21:05)
[2016-11-15] MEDS: INSULIN ASPART SUPPLEMENTAL SCALE SQ SCH ×4 (07:43→21:00)
[2016-11-15 07:57] VITALS: BP 114/57; PULSE 90; RESP 20; TEMP 97.8; O2SAT 91
[2016-11-15] MEDS: FAMOTIDINE 20 MG TAB PO SCH (09:00)
[2016-11-15] MEDS: DOCUSATE SODIUM 100 MG CAP PO SCH ×2 (09:37→20:58)
[2016-11-15] MEDS: ATORVASTATIN 40 MG TAB PO SCH (09:37)
[2016-11-15] MEDS: ASCORBIC ACID 500 MG TAB PO SCH ×2 (09:40→20:58)
[2016-11-15] MEDS: FUROSEMIDE 40 MG TAB PO SCH ×2 (09:40→20:58)
[2016-11-15] MEDS: POTASSIUM CHLORIDE 20 MEQ CONTROLLED RELEASE TAB PO SCH (09:40)
[2016-11-15] MEDS: buPROPion HCL 150 MG SUSTAINED RELEASE TAB PO SCH ×2 (09:41→20:58)
[2016-11-15] MEDS: NYSTATIN 100,000 U/GM PWD 15 GM BTL TOPICAL SCH ×2 (09:41→21:00)
[2016-11-15] MEDS: SODIUM CHLORIDE 0.9% FLUSH 10 ML FLUSH IV FLUSH SCH ×2 (09:47→21:00)
[2016-11-15] MEDS: BACLOFEN 20 MG TAB PO PRN ×3 (11:19→21:01)
[2016-11-15] MEDS: LEVOFLOXACIN 500 MG TAB PO SCH (11:19)
[2016-11-15 11:55] VITALS: BP 108/66; PULSE 101; RESP 20; TEMP 97.1; O2SAT 94
--- NOTE | 2016-11-15 12:42 | HHI.PR ---
Subjective Remarks Discussed with the patient the nurse at the bedside, he continued to asked for excessive amount of Dilaudid claiming that this is what his bodies used to Objective Vitals Vital Signs Date Time Temp Pulse Resp B/P Pulse Ox O2 Delivery O2 Flow Rate FiO2 11/15/16 07:57 97.8 90 20 114/57 91 11/15/16 04:00 97.3 97 20 109/70 92 11/15/16 00:00 99.0 101 20 123/69 94 11/14/16 20:00 98.0 100 20 119/61 97 11/14/16 18:58 16 11/14/16 18:58 16 11/14/16 18:58 16 11/14/16 17:52 16 I/O 11/14/16 11/14/16 11/14/16 11/15/16 11/15/16 11/15/16 07:00 15:00 23:00 07:00 15:00 23:00 Intake Total 480 ml 440 ml 1360 ml 480 ml Output Total 1000 ml 750 ml 3255 ml 3650 ml Balance -520 ml -310 ml -1895 ml -3170 ml Intake Oral 480 ml 1360 ml 480 ml IV Total 440 ml Output Urine Total 1000 ml 750 ml 3255 ml 3650 ml # Bowel Movements 0 0 Result Diagram: 11/14/16 1200 11/14/16 1200 Objective Remarks GENERAL: morbidly obese male, in no acute distress HEAD: Atraumatic. Normocephalic. Skin: Positive decubitus ulcer in gauze EYES: Pupils equal and round. No scleral icterus. No injection or drainage. ENT: No nasal bleeding or discharge. Mucous membranes pink and moist. NECK: Trachea midline. No JVD. CARDIOVASCULAR: Regular rate and rhythm. RESPIRATORY: No accessory muscle use. Clear to auscultation. Breath sounds equal bilaterally. GASTROINTESTINAL: Abdomen soft, non-tender, nondistended. Hepatic and splenic margins not palpable. MUSCULOSKELETAL: Left AKA. NEUROLOGICAL: Awake and alert. Normal speech. A/P Problem List: (1) UTI (urinary tract infection) ICD Code: N39.0 Status: Acute (2) Chronic pain ICD Code: G89.29 Status: Chronic (3) Type 2 diabetes mellitus ICD Code: E11.9 Status: Chronic (4) Morbidly obese ICD Code: E66.01 Status: Chronic (5) Depression ICD Code: F32.9 Status: Chronic (6) Pressure ulcer ICD Code: L89.90 Status: Chronic (7) Sleep apnea ICD Code: G47.30 Status: Chronic (8) Hypothyroidism ICD Code: E03.9 Status: Chronic Assessment and Plan 11/14: Urine culture came back for gram negatives rods, I switched Levaquin 2 by mouth 500 mg daily for 7 days, and I wanted to held trazodone due to risk of interacting with the Wellbutrin and Lexapro which can decrease seizure threshold , and increased risk of serotonin syndrome. However patient refused, will consult psychiatry They show stable for discharge once arrangement is done, discussed with sample case porter Time spent including bedside discussion, preparing medication for discharge, reviewing labs, adjusting medication 50 minutes 11/15: Patient undergoing that psychiatry told him he will start Lexapro not Wellbutrin, even though I read to him the psychiatry notes he still not convinced and he refused to take Wellbutrin today, also asked for Dilaudid I explained to him that increasing narcotic will suppress his respiratory central effort A/P: This is a 25-year-old male patient with a medical history significant for paraplegia, neurogenic bladder, hypertension, chronic recurrent DVT, chronic pain, sleep apnea, CHF who was brought to the ED yesterday under Felipe act due to threatening staff at his nursing facility. 1. UTI: UA significant for large leuk esterase. Dr. Meraz urology was consulted to assist with placement of a indwelling Kyle for this morbidly obese patient with neurogenic bladder, kyle is malfunctioning, nurse will reach out to Mariya to assist with kyle. The patient is on IV Levaquin 11/11. Urine cultures gram negative rods sensitivities pending, patient switched to Levaquin 500 milligrams by mouth for 7 days 2. Diabetes: Accu-Cheks, diabetic diet, home Levemir 55 units hs, sliding scale. 3. Chronic pain. Home medications baclofen, morphine, Dilaudid IV for breakthrough pain 4. Morbid obesity: General surgery was consulted yesterday by admitting team for gastric bypass recommendations. This is likely something that will have to be managed as an outpatient. 5. Chronic pressure ulcers: Wound care was consulted. Discussed with nurse. Documented on admission. 6. Sleep apnea, CPAP at night 7. Anxiety and depression: Home medications Wellbutrin, Lexapro, Xanax. Was evaluated by psych in the ER, Destinee acted lifted, did not meet inpatient psychiatric and admission criteria. We'll continue his outpatient psychiatric care upon discharge. I held trazodone due to risk of interacting with the Wellbutrin and Lexapro which can decrease seizure threshold, and increased risk of serotonin syndrome 8. Hyperlipidemia: Continue Lipitor 9. Hypothyroidism: Continue levothyroxine 10. substance use: tox screen on admission significant for opiates, benzos, cannabinoids DVT prophylaxis: Patient is currently on Xarelto for his recurrent DVTs Fluids: HLIV Dispo: Medically stable to be discharged to SNF, once arrangement is done by CM Discharge Planning Medically stable to be discharged to SNF once arrangement is done Problem Qualifiers (1) Morbidly obese: Qualified Code: E66.01 - Morbid obesity, unspecified obesity type (2) Pressure ulcer: Shamika Fairchild MD Nov 15, 2016 12:42
[2016-11-15 15:45] VITALS: BP 102/58; PULSE 86; RESP 20; TEMP 96.4; O2SAT 95
[2016-11-15] MEDS: SIMETHICONE 80 MG CHEWABLE TAB CHEW PRN (15:58)
[2016-11-15] MEDS: RIVAROXABAN 20 MG TAB PO SCH (20:58)
[2016-11-15] MEDS: TOLTERODINE TARTRATE 2 MG CAP LA PO SCH (20:58)
[2016-11-15] MEDS: INSULIN DETEMIR 100 UNITS/ML VIAL SQ SCH (21:00)
[2016-11-15 21:15] VITALS: BP 137/63; PULSE 88; RESP 19; TEMP 98.1; O2SAT 95
[2016-11-16] MEDS: MORPHINE SULFATE 30 MG CONTROLLED RELEASE TAB PO SCH ×3 (02:33→17:55)
[2016-11-16] MEDS: MORPHINE SULFATE 100 MG CONTROLLED RELEASE TAB PO SCH ×3 (02:33→17:55)
[2016-11-16 02:35] VITALS: O2SAT 99
[2016-11-16] MEDS: LEVOTHYROXINE SODIUM 50 MCG TAB PO SCH (05:25)
[2016-11-16] MEDS: COLLAGENASE OINT 30 GM TUBE TOPICAL SCH ×3 (05:30→20:33)
[2016-11-16] MEDS: INSULIN ASPART SUPPLEMENTAL SCALE SQ SCH ×4 (07:00→20:33)
[2016-11-16 08:00] VITALS: BP 143/68; PULSE 87; RESP 16; TEMP 97.1; O2SAT 97
[2016-11-16] MEDS: ATORVASTATIN 40 MG TAB PO SCH (08:45)
[2016-11-16] MEDS: buPROPion HCL 150 MG SUSTAINED RELEASE TAB PO SCH ×2 (08:46→20:32)
[2016-11-16] MEDS: DOCUSATE SODIUM 100 MG CAP PO SCH ×2 (08:46→20:32)
[2016-11-16] MEDS: ASCORBIC ACID 500 MG TAB PO SCH ×2 (08:46→20:32)
[2016-11-16] MEDS: POTASSIUM CHLORIDE 20 MEQ CONTROLLED RELEASE TAB PO SCH (08:47)
[2016-11-16] MEDS: FUROSEMIDE 40 MG TAB PO SCH ×2 (08:47→20:32)
[2016-11-16] MEDS: FAMOTIDINE 20 MG TAB PO SCH (08:48)
[2016-11-16] MEDS: SODIUM CHLORIDE 0.9% FLUSH 10 ML FLUSH IV FLUSH SCH ×2 (08:49→20:34)
[2016-11-16] MEDS: NYSTATIN 100,000 U/GM PWD 15 GM BTL TOPICAL SCH ×2 (08:50→20:33)
[2016-11-16] MEDS: BACLOFEN 20 MG TAB PO PRN ×2 (09:05→20:55)
[2016-11-16] MEDS: LEVOFLOXACIN 500 MG TAB PO SCH (10:05)
[2016-11-16] MEDS: ALPRAZolam 1 MG TAB PO PRN ×2 (10:07→16:34)
--- NOTE | 2016-11-16 10:53 | PQ ---
Physician Query Response Document PATIENT: MARK COUCH : 1990 ADMIT DATE: 11/11/2016 8:05 AM DISCH DATE: RESPONDING PROVIDER #: radha QUERY TEXT: Cause and Effect Relationship Please clarify in documentation the relationship, if any, between _UTI_and_INDWELLING DIAZ CATHETER_ _ Such as: -- Conditions are due to or associated -- Unrelated to each other -- Other, please specify The patient's Clinical Indicators include: 11/11/16 Admission Diagnosis Inability to Ambulate Diagnoses: Chief Complaint: Multiple wounds, catheter change PER ED NARRATIVE COURSE - He does have a chronic indwelling Diaz catheter. PER H ASSESSMENT AND PLAN STATES - UTI UA shows large leukocyte esterase -Urine culture pending -Levaquin IV daily -Consult urology to replace Diaz Query created by: Roxanne Wan on 11/15/2016 11:29 AM RESPONSE TEXT: Mostly associated with indwelling cath Electronically signed by: Shamika Fairchild MD 11/16/2016 10:49 AM
[2016-11-16] MEDS: HYDROmorphone HCL PF 1 MG/ML VIAL IV PUSH PRN ×3 (11:30→16:41)
[2016-11-16 12:00] VITALS: BP 129/78; PULSE 97; RESP 16; TEMP 98.5; O2SAT 95
[2016-11-16] MEDS: SIMETHICONE 80 MG CHEWABLE TAB CHEW PRN (14:06)
[2016-11-16 16:00] VITALS: BP_SYST 100; PULSE 105; RESP 16; TEMP 97.9; O2SAT 95
[2016-11-16 16:16] LABS: HEMOGLOBIN A1a 1.2 %; HEMOGLOBIN A1b 2.7 %; HEMOGLOBIN LA1C 3.2 %; HEMOGLOBIN P3 5.9 %
[2016-11-16 20:00] VITALS: BP 128/80; PULSE 100; RESP 19; TEMP 97.9; O2SAT 94
[2016-11-16] MEDS: RIVAROXABAN 20 MG TAB PO SCH (20:32)
[2016-11-16] MEDS: traZODone HCL 100 MG TAB PO SCH (20:32)
[2016-11-16] MEDS: TOLTERODINE TARTRATE 2 MG CAP LA PO SCH (20:32)
[2016-11-16] MEDS: INSULIN DETEMIR 100 UNITS/ML VIAL SQ SCH (20:32)
[2016-11-16] MEDS: ZOLPIDEM TARTRATE 10 MG TAB PO SCH (20:32)
[2016-11-16] MEDS ORDERED: traZODone HCL 100 MG TAB PO ONE (22:45)
--- NOTE | 2016-11-16 22:56 | HHI.PR ---
Subjective Remarks Follow up for paraplegia, chronic pain, neurogenic bladder. Patient was felipe acted for threatening staff at the nursing facility. Mr. Martin is doing well. However, he raises multiple concerns about his pain medications and Trazodone which he uses as sleep aid. He also asks for urology to re-check Montel[place] catheter. Objective Vitals Vital Signs Date Time Temp Pulse Resp B/P Pulse Ox O2 Delivery O2 Flow Rate FiO2 11/16/16 20:00 97.9 100 19 128/80 94 11/16/16 16:00 97.9 105 16 100/ 95 11/16/16 12:00 98.5 97 16 129/78 95 11/16/16 08:00 97.1 87 16 143/68 97 11/16/16 02:35 99 40 I/O 11/15/16 11/15/16 11/15/16 11/16/16 11/16/16 11/16/16 07:00 15:00 23:00 07:00 15:00 23:00 Intake Total 480 ml 720 ml 2500 ml 1800 ml 1840 ml 1200 ml Output Total 3650 ml 6050 ml 3000 ml 3800 ml 3700 ml 500 ml Balance -3170 ml -5330 ml -500 ml -2000 ml -1860 ml 700 ml Intake Oral 480 ml 720 ml 2500 ml 1800 ml 1840 ml 1200 ml Output Urine Total 3650 ml 6050 ml 3000 ml 3800 ml 3700 ml 500 ml # Bowel Movements 0 0 0 0 0 Result Diagram: 11/14/16 1200 11/16/16 0816 Objective Remarks GENERAL: Morbidly obese male in no distress. Alert, Oriented x 3. SKIN: Warm and dry. HEAD: Normocephalic. EYES: No scleral icterus. No injection or drainage. NECK: Supple, trachea midline. No JVD or lymphadenopathy. CARDIOVASCULAR: Regular rate and rhythm without murmurs, gallops, or rubs. RESPIRATORY: Breath sounds equal bilaterally. No accessory muscle use. GASTROINTESTINAL: Abdomen soft, non-tender, nondistended. Morbid obesity. MUSCULOSKELETAL: No cyanosis, or edema. Left AKA. BACK: Nontender without obvious deformity. No CVA tenderness. A/P Problem List: (1) UTI (urinary tract infection) ICD Code: N39.0 Status: Acute (2) Chronic pain ICD Code: G89.29 Status: Chronic (3) Type 2 diabetes mellitus ICD Code: E11.9 Status: Chronic (4) Morbidly obese ICD Code: E66.01 Status: Chronic (5) Depression ICD Code: F32.9 Status: Chronic (6) Pressure ulcer ICD Code: L89.90 Status: Chronic (7) Sleep apnea ICD Code: G47.30 Status: Chronic (8) Hypothyroidism ICD Code: E03.9 Status: Chronic Assessment and Plan This is a 25-year-old male patient with a medical history significant for paraplegia, neurogenic bladder, hypertension, chronic recurrent DVT, chronic pain, sleep apnea, CHF who was brought to the ED yesterday under Felipe act due to threatening staff at his nursing facility. 1. UTI: UA significant for large leukocyte esterase. Dr. Meraz urology was consulted to assist with placement of a indwelling Montel[place]. Continue Levaquin 500 mg Qday for a total of 7 days. End date 11/22/2016. 2. Diabetes: Accu-Cheks, diabetic diet, home Levemir 55 units hs, sliding scale. IF glucose is not well controlled, we will consider Levemir 30 units BID. 3. Chronic pain. Home medications baclofen, morphine, Dilaudid 1mg IV for breakthrough pain 4. Morbid obesity: Outpatient general surgery referral needed for possible surgical interventions. 5. Chronic pressure ulcers: Wound care was consulted. Discussed with nurse. Documented on admission. 6. Sleep apnea, CPAP at night 7. Anxiety and depression: Home medications Wellbutrin, Lexapro, Xanax. Was evaluated by psych in the ER, Felipe acted lifted, did not meet inpatient psychiatric and admission criteria. We'll continue his outpatient psychiatric care upon discharge. Continue Home meds trazodone, Wellbutrin. 8. Hyperlipidemia: Continue Lipitor 9. Hypothyroidism: Continue levothyroxine 10. substance use: tox screen on admission significant for opiates, benzos, cannabinoids Full code. Xarelto. Problem Qualifiers (1) Morbidly obese: Qualified Code: E66.01 - Morbid obesity, unspecified obesity type (2) Pressure ulcer: Greta Thurston DO Nov 16, 2016 22:56
[2016-11-17] MEDS: MORPHINE SULFATE 30 MG CONTROLLED RELEASE TAB PO SCH ×2 (01:39→10:00)
[2016-11-17] MEDS: MORPHINE SULFATE 100 MG CONTROLLED RELEASE TAB PO SCH ×3 (01:39→19:13)
[2016-11-17] MEDS: INSULIN ASPART SUPPLEMENTAL SCALE SQ SCH ×4 (05:20→21:01)
[2016-11-17] MEDS: HYDROmorphone HCL PF 1 MG/ML VIAL IV PUSH PRN ×3 (05:20→21:02)
[2016-11-17] MEDS: LEVOTHYROXINE SODIUM 50 MCG TAB PO SCH (05:20)
[2016-11-17] MEDS: COLLAGENASE OINT 30 GM TUBE TOPICAL SCH ×2 (06:00→22:00)
[2016-11-17 08:00] VITALS: BP 112/53; PULSE 81; RESP 16; TEMP 98.2; O2SAT 98
[2016-11-17] MEDS: buPROPion HCL 150 MG SUSTAINED RELEASE TAB PO SCH ×2 (09:00→21:00)
[2016-11-17] MEDS: ATORVASTATIN 40 MG TAB PO SCH (09:00)
[2016-11-17] MEDS: FAMOTIDINE 20 MG TAB PO SCH (09:00)
[2016-11-17] MEDS: FUROSEMIDE 40 MG TAB PO SCH ×2 (09:00→20:59)
[2016-11-17] MEDS: ASCORBIC ACID 500 MG TAB PO SCH ×2 (09:00→20:59)
[2016-11-17] MEDS: SODIUM CHLORIDE 0.9% FLUSH 10 ML FLUSH IV FLUSH SCH ×2 (09:00→21:02)
[2016-11-17] MEDS: NYSTATIN 100,000 U/GM PWD 15 GM BTL TOPICAL SCH ×2 (09:00→21:01)
[2016-11-17] MEDS: DOCUSATE SODIUM 100 MG CAP PO SCH ×2 (09:00→20:58)
[2016-11-17 12:00] VITALS: BP 140/84; PULSE 101; RESP 16; TEMP 96.8; O2SAT 94
[2016-11-17] MEDS: LEVOFLOXACIN 500 MG TAB PO SCH (12:48)
[2016-11-17] MEDS: BACLOFEN 20 MG TAB PO PRN ×2 (14:01→22:59)
[2016-11-17] MEDS: MAGNESIUM CITRATE SOLN 300 ML BTL PO PRN (14:04)
[2016-11-17 16:00] VITALS: BP 94/53; PULSE 89; RESP 16; TEMP 97; O2SAT 94
[2016-11-17] MEDS: SIMETHICONE 80 MG CHEWABLE TAB CHEW PRN (16:55)
[2016-11-17] MEDS: ALPRAZolam 1 MG TAB PO PRN (16:57)
--- NOTE | 2016-11-17 17:31 | HHI.PR ---
Subjective Remarks Follow up for paraplegia, chronic pain, neurogenic bladder. Mr. Martin reports being depressed. Nothing specific. Overall situation makes him depressed. No other acute concerns. No fever, chills. Objective Vitals Vital Signs Date Time Temp Pulse Resp B/P Pulse Ox O2 Delivery O2 Flow Rate FiO2 11/17/16 12:00 96.8 101 16 140/84 94 11/17/16 08:00 98.2 81 16 112/53 98 11/16/16 20:00 97.9 100 19 128/80 94 I/O 11/16/16 11/16/16 11/16/16 11/17/16 11/17/16 11/17/16 07:00 15:00 23:00 07:00 15:00 23:00 Intake Total 1800 ml 1840 ml 1200 ml Output Total 3800 ml 3700 ml 500 ml 3000 ml Balance -2000 ml -1860 ml 700 ml -3000 ml Intake Oral 1800 ml 1840 ml 1200 ml Output Urine Total 3800 ml 3700 ml 500 ml 3000 ml # Bowel Movements 0 0 0 Result Diagram: 11/14/16 1200 11/16/16 0816 Objective Remarks GENERAL: Morbidly obese male in no distress. Alert, Oriented x 3. SKIN: Warm and dry. HEAD: Normocephalic. EYES: No scleral icterus. No injection or drainage. NECK: Supple, trachea midline. No JVD or lymphadenopathy. CARDIOVASCULAR: Regular rate and rhythm without murmurs, gallops, or rubs. RESPIRATORY: Breath sounds equal bilaterally. No accessory muscle use. GASTROINTESTINAL: Abdomen soft, non-tender, nondistended. Morbid obesity. MUSCULOSKELETAL: No cyanosis, or edema. Left AKA. BACK: Nontender without obvious deformity. No CVA tenderness. A/P Problem List: (1) UTI (urinary tract infection) ICD Code: N39.0 Status: Acute (2) Chronic pain ICD Code: G89.29 Status: Chronic (3) Type 2 diabetes mellitus ICD Code: E11.9 Status: Chronic (4) Morbidly obese ICD Code: E66.01 Status: Chronic (5) Depression ICD Code: F32.9 Status: Chronic (6) Pressure ulcer ICD Code: L89.90 Status: Chronic (7) Sleep apnea ICD Code: G47.30 Status: Chronic (8) Hypothyroidism ICD Code: E03.9 Status: Chronic Assessment and Plan This is a 25-year-old male patient with a medical history significant for paraplegia, neurogenic bladder, hypertension, chronic recurrent DVT, chronic pain, sleep apnea, CHF who was brought to the ED yesterday under Destinee act due to threatening staff at his nursing facility. 1. UTI: UA significant for large leukocyte esterase. Dr. Meraz urology was consulted to assist with placement of a indwelling [place]. Continue Levaquin 500 mg Qday for a total of 7 days. End date 11/22/2016. 2. Diabetes: Accu-Cheks, diabetic diet, home Levemir 55 units hs, sliding scale. IF glucose is not well controlled, we will consider Levemir 30 units BID. 3. Chronic pain. Home medications baclofen, morphine, Dilaudid 1mg IV for breakthrough pain 4. Morbid obesity: Outpatient general surgery referral needed for possible surgical interventions. 5. Chronic pressure ulcers: Wound care was consulted. Discussed with nurse. Documented on admission. 6. Sleep apnea, CPAP at night 7. Anxiety and depression: Home medications Wellbutrin, Lexapro, Xanax. Was evaluated by psych in the ER, Destinee acted lifted, did not meet inpatient psychiatric and admission criteria. We'll continue his outpatient psychiatric care upon discharge. Continue Home meds trazodone, Wellbutrin. Will consider switching Wellbutrin to Lexapro or perhaps Zoloft. 8. Hyperlipidemia: Continue Lipitor 9. Hypothyroidism: Continue levothyroxine 10. substance use: tox screen on admission significant for opiates, benzos, cannabinoids Full code. Xarelto. Problem Qualifiers (1) Morbidly obese: Qualified Code: E66.01 - Morbid obesity, unspecified obesity type (2) Pressure ulcer: Greta Thurston DO Nov 17, 2016 17:31
[2016-11-17 20:00] VITALS: BP 122/58; PULSE 87; RESP 19; TEMP 97.5; O2SAT 97
[2016-11-17] MEDS: TOLTERODINE TARTRATE 2 MG CAP LA PO SCH (20:30)
[2016-11-17] MEDS: traZODone HCL 100 MG TAB PO SCH (20:59)
[2016-11-17] MEDS: ZOLPIDEM TARTRATE 10 MG TAB PO SCH (20:59)
[2016-11-17] MEDS: INSULIN DETEMIR 100 UNITS/ML VIAL SQ SCH (21:00)
[2016-11-17] MEDS: RIVAROXABAN 20 MG TAB PO SCH (23:01)
[2016-11-18] VITALS: BP 125/85; PULSE 95; RESP 20; TEMP 96.4; O2SAT 97
[2016-11-18] MEDS: MORPHINE SULFATE 100 MG CONTROLLED RELEASE TAB PO SCH ×3 (01:32→17:44)
[2016-11-18] MEDS: MORPHINE SULFATE 30 MG CONTROLLED RELEASE TAB PO SCH ×3 (01:32→17:44)
[2016-11-18] MEDS: ALPRAZolam 1 MG TAB PO PRN (01:33)
[2016-11-18] MEDS: HYDROmorphone HCL PF 1 MG/ML VIAL IV PUSH PRN ×3 (01:37→20:27)
[2016-11-18] MEDS: LEVOTHYROXINE SODIUM 50 MCG TAB PO SCH (07:17)
[2016-11-18] MEDS: COLLAGENASE OINT 30 GM TUBE TOPICAL SCH ×3 (07:18→20:26)
[2016-11-18 07:53] VITALS: BP 115/59; PULSE 85; RESP 19; TEMP 98.4; O2SAT 98
[2016-11-18] MEDS: INSULIN ASPART SUPPLEMENTAL SCALE SQ SCH ×4 (08:24→20:23)
[2016-11-18] MEDS: NYSTATIN 100,000 U/GM PWD 15 GM BTL TOPICAL SCH ×2 (09:00→20:25)
[2016-11-18] MEDS: SODIUM CHLORIDE 0.9% FLUSH 10 ML FLUSH IV FLUSH SCH ×2 (09:00→20:23)
[2016-11-18] MEDS: ASCORBIC ACID 500 MG TAB PO SCH ×2 (09:36→20:22)
[2016-11-18] MEDS: DOCUSATE SODIUM 100 MG CAP PO SCH ×2 (09:36→20:22)
[2016-11-18] MEDS: ATORVASTATIN 40 MG TAB PO SCH (09:36)
[2016-11-18] MEDS: FUROSEMIDE 40 MG TAB PO SCH ×2 (09:36→20:22)
[2016-11-18] MEDS: buPROPion HCL 150 MG SUSTAINED RELEASE TAB PO SCH ×2 (09:37→20:22)
[2016-11-18] MEDS: FAMOTIDINE 20 MG TAB PO SCH (09:37)
[2016-11-18] MEDS: MAGNESIUM CITRATE SOLN 300 ML BTL PO PRN (09:38)
[2016-11-18 11:10] VITALS: BP 130/73; PULSE 94; RESP 19; TEMP 99.3; O2SAT 99
[2016-11-18] MEDS: LEVOFLOXACIN 500 MG TAB PO SCH (11:48)
[2016-11-18 15:50] VITALS: BP 111/62; PULSE 99; RESP 19; TEMP 100.6; O2SAT 97
[2016-11-18] MEDS: BACLOFEN 20 MG TAB PO PRN (16:07)
--- NOTE | 2016-11-18 17:13 | HHI.PR ---
Subjective Remarks Follow up for paraplegia, chronic pain, neurogenic bladder. Mr. Martin is doing well. No acute concerns. Objective Vitals Vital Signs Date Time Temp Pulse Resp B/P Pulse Ox O2 Delivery O2 Flow Rate FiO2 11/18/16 15:50 100.6 99 19 111/62 97 11/18/16 11:10 99.3 94 19 130/73 99 11/18/16 07:53 98.4 85 19 115/59 98 11/18/16 00:00 96.4 95 20 125/85 97 11/17/16 20:00 97.5 87 19 122/58 97 I/O 11/17/16 11/17/16 11/17/16 11/18/16 11/18/16 11/18/16 07:00 15:00 23:00 07:00 15:00 23:00 Intake Total 960 ml 750 ml Output Total 3000 ml 2675 ml 1200 ml 1350 ml 1500 ml Balance -3000 ml -1715 ml -450 ml -1350 ml -1500 ml Intake Oral 960 ml 750 ml Output Urine Total 3000 ml 2675 ml 1200 ml 1350 ml 1500 ml # Bowel Movements 0 0 Result Diagram: 11/14/16 1200 11/16/16 0816 Objective Remarks GENERAL: Morbidly obese male in no distress. Alert, Oriented x 3. SKIN: Warm and dry. HEAD: Normocephalic. EYES: No scleral icterus. No injection or drainage. NECK: Supple, trachea midline. No JVD or lymphadenopathy. CARDIOVASCULAR: Regular rate and rhythm without murmurs, gallops, or rubs. RESPIRATORY: Breath sounds equal bilaterally. No accessory muscle use. GASTROINTESTINAL: Abdomen soft, non-tender, nondistended. Morbid obesity. MUSCULOSKELETAL: No cyanosis, or edema. Left AKA. BACK: Nontender without obvious deformity. No CVA tenderness. A/P Problem List: (1) UTI (urinary tract infection) ICD Code: N39.0 Status: Acute (2) Chronic pain ICD Code: G89.29 Status: Chronic (3) Type 2 diabetes mellitus ICD Code: E11.9 Status: Chronic (4) Morbidly obese ICD Code: E66.01 Status: Chronic (5) Depression ICD Code: F32.9 Status: Chronic (6) Pressure ulcer ICD Code: L89.90 Status: Chronic (7) Sleep apnea ICD Code: G47.30 Status: Chronic (8) Hypothyroidism ICD Code: E03.9 Status: Chronic Assessment and Plan This is a 25-year-old male patient with a medical history significant for paraplegia, neurogenic bladder, hypertension, chronic recurrent DVT, chronic pain, sleep apnea, CHF who was brought to the ED yesterday under Felipe act due to threatening staff at his nursing facility. 1. UTI: UA significant for large leukocyte esterase. Dr. Meraz urology was consulted to assist with placement of a indwelling [place]. Continue Levaquin 500 mg Qday for a total of 7 days. End date 11/22/2016. 2. Diabetes: Accu-Cheks, diabetic diet, home Levemir 55 units hs, sliding scale. IF glucose is not well controlled, we will consider Levemir 30 units BID. 3. Chronic pain. Home medications baclofen, morphine, Dilaudid 1mg IV for breakthrough pain 4. Morbid obesity: Outpatient general surgery referral needed for possible surgical interventions. 5. Chronic pressure ulcers: Wound care was consulted. Discussed with nurse. Documented on admission. 6. Sleep apnea, CPAP at night 7. Anxiety and depression: Home medications Wellbutrin, Lexapro, Xanax. Was evaluated by psych in the ER, Felipe acted lifted, did not meet inpatient psychiatric and admission criteria. We'll continue his outpatient psychiatric care upon discharge. Continue Home meds trazodone, Wellbutrin. Will consider switching Wellbutrin to Lexapro or perhaps Zoloft. 8. Hyperlipidemia: Continue Lipitor 9. Hypothyroidism: Continue levothyroxine 10. substance use: tox screen on admission significant for opiates, benzos, cannabinoids Full code. Xarelto. 11/18/2016 : No change in management. Difficult placement. Problem Qualifiers (1) Morbidly obese: Qualified Code: E66.01 - Morbid obesity, unspecified obesity type (2) Pressure ulcer: Greta Thurston DO Nov 18, 2016 5:13 pm
[2016-11-18] MEDS: ACETAMINOPHEN 325 MG TAB PO PRN (17:44)
[2016-11-18 20:00] VITALS: BP 100/54; PULSE 81; RESP 20; TEMP 98; O2SAT 97
[2016-11-18] MEDS: TOLTERODINE TARTRATE 2 MG CAP LA PO SCH (20:22)
[2016-11-18] MEDS: ZOLPIDEM TARTRATE 10 MG TAB PO SCH (20:22)
[2016-11-18] MEDS: RIVAROXABAN 20 MG TAB PO SCH (20:22)
[2016-11-18] MEDS: traZODone HCL 100 MG TAB PO SCH (20:22)
[2016-11-18] MEDS: INSULIN DETEMIR 100 UNITS/ML VIAL SQ SCH (20:23)
[2016-11-19 00:21] VITALS: BP 113/56; PULSE 83; RESP 19; TEMP 97.2; O2SAT 94
[2016-11-19 00:48] VITALS: O2SAT 97
[2016-11-19] MEDS: HYDROmorphone HCL PF 1 MG/ML VIAL IV PUSH PRN ×5 (02:08→23:38)
[2016-11-19] MEDS: MORPHINE SULFATE 100 MG CONTROLLED RELEASE TAB PO SCH ×3 (02:56→18:37)
[2016-11-19] MEDS: MORPHINE SULFATE 30 MG CONTROLLED RELEASE TAB PO SCH ×3 (02:56→18:37)
[2016-11-19] MEDS: LEVOTHYROXINE SODIUM 50 MCG TAB PO SCH (05:29)
[2016-11-19] MEDS: INSULIN ASPART SUPPLEMENTAL SCALE SQ SCH ×4 (05:29→21:43)
[2016-11-19] MEDS: COLLAGENASE OINT 30 GM TUBE TOPICAL SCH ×3 (06:00→20:42)
[2016-11-19 08:00] VITALS: BP 106/52; PULSE 80; RESP 19; TEMP 98.9; O2SAT 95
[2016-11-19] MEDS: DOCUSATE SODIUM 100 MG CAP PO SCH ×2 (08:50→20:40)
[2016-11-19] MEDS: ASCORBIC ACID 500 MG TAB PO SCH ×2 (08:51→20:40)
[2016-11-19] MEDS: ATORVASTATIN 40 MG TAB PO SCH (08:51)
[2016-11-19] MEDS: FUROSEMIDE 40 MG TAB PO SCH ×2 (08:51→20:41)
[2016-11-19] MEDS: FAMOTIDINE 20 MG TAB PO SCH (08:51)
[2016-11-19] MEDS: ACETAMINOPHEN 325 MG TAB PO PRN ×2 (08:51→13:58)
[2016-11-19] MEDS: buPROPion HCL 150 MG SUSTAINED RELEASE TAB PO SCH ×2 (08:52→20:39)
[2016-11-19] MEDS: NYSTATIN 100,000 U/GM PWD 15 GM BTL TOPICAL SCH ×2 (09:00→20:42)
[2016-11-19] MEDS: SODIUM CHLORIDE 0.9% FLUSH 10 ML FLUSH IV FLUSH SCH ×2 (09:00→20:42)
[2016-11-19] MEDS: ALPRAZolam 1 MG TAB PO PRN ×2 (10:03→15:51)
[2016-11-19] MEDS: LEVOFLOXACIN 500 MG TAB PO SCH (10:03)
[2016-11-19] MEDS: BACLOFEN 20 MG TAB PO PRN ×3 (11:56→23:33)
[2016-11-19 12:00] VITALS: BP 111/78; PULSE 84; RESP 17; TEMP 98.3; O2SAT 95
--- NOTE | 2016-11-19 13:30 | HHI.PR ---
Subjective Remarks Follow up for paraplegia, chronic pain, neurogenic bladder. Mr. Martin is doing well. No acute concerns. He requests more food. He is agreeable to 2200 calorie diabetic diet. Advised patient not to eat or drink too much sugary stuff. He admits to eating peanut buttercup candy and drinking mountain dew. Objective Vitals Vital Signs Date Time Temp Pulse Resp B/P Pulse Ox O2 Delivery O2 Flow Rate FiO2 11/19/16 12:28 26 11/19/16 12:00 98.3 84 17 111/78 95 11/19/16 10:25 24 11/19/16 08:00 98.9 80 19 106/52 95 11/19/16 00:48 97 40 11/19/16 00:21 97.2 83 19 113/56 94 11/18/16 20:00 98.0 81 20 100/54 97 11/18/16 15:50 100.6 99 19 111/62 97 I/O 11/18/16 11/18/16 11/18/16 11/19/16 11/19/16 11/19/16 07:00 15:00 23:00 07:00 15:00 23:00 Intake Total 480 ml 360 ml Output Total 1350 ml 2350 ml 1650 ml Balance -1350 ml -1870 ml -1290 ml Intake Oral 480 ml 360 ml Output Urine Total 1350 ml 2350 ml 1650 ml # Bowel Movements 0 Result Diagram: 11/16/16 0816 Objective Remarks GENERAL: Morbidly obese male in no distress. Alert, Oriented x 3. SKIN: Warm and dry. HEAD: Normocephalic. EYES: No scleral icterus. No injection or drainage. NECK: Supple, trachea midline. No JVD or lymphadenopathy. CARDIOVASCULAR: Regular rate and rhythm without murmurs, gallops, or rubs. RESPIRATORY: Breath sounds equal bilaterally. No accessory muscle use. GASTROINTESTINAL: Abdomen soft, non-tender, nondistended. Morbid obesity. MUSCULOSKELETAL: No cyanosis, or edema. Left AKA. BACK: Nontender without obvious deformity. No CVA tenderness. A/P Problem List: (1) UTI (urinary tract infection) ICD Code: N39.0 Status: Acute (2) Chronic pain ICD Code: G89.29 Status: Chronic (3) Type 2 diabetes mellitus ICD Code: E11.9 Status: Chronic (4) Morbidly obese ICD Code: E66.01 Status: Chronic (5) Depression ICD Code: F32.9 Status: Chronic (6) Pressure ulcer ICD Code: L89.90 Status: Chronic (7) Sleep apnea ICD Code: G47.30 Status: Chronic (8) Hypothyroidism ICD Code: E03.9 Status: Chronic Assessment and Plan This is a 25-year-old male patient with a medical history significant for paraplegia, neurogenic bladder, hypertension, chronic recurrent DVT, chronic pain, sleep apnea, CHF who was brought to the ED yesterday under Felipe act due to threatening staff at his nursing facility. 1. UTI: UA significant for large leukocyte esterase. Dr. Meraz urology was consulted to assist with placement of a indwelling [place]. Continue Levaquin 500 mg Qday for a total of 7 days. End date 11/22/2016. 2. Diabetes: Accu-Cheks, diabetic diet. Increase Levemir from 55 units QHS to 30 units BID. Start Aspart 6 units TIDAC. Continue sliding scale insulin. Advised patient to control sugar intake from candy and soft drinks. 3. Chronic pain. Home medications baclofen, morphine, Dilaudid 1mg IV for breakthrough pain 4. Morbid obesity: Outpatient general surgery referral needed for possible surgical interventions. 5. Chronic pressure ulcers: Wound care was consulted. Discussed with nurse. Documented on admission. 6. Sleep apnea, CPAP at night 7. Anxiety and depression: Home medications Wellbutrin, Lexapro, Xanax. Was evaluated by psych in the ER, Destinee acted lifted, did not meet inpatient psychiatric and admission criteria. We'll continue his outpatient psychiatric care upon discharge. Continue Home meds trazodone, Wellbutrin. Will consider switching Wellbutrin to Lexapro or perhaps Zoloft. 8. Hyperlipidemia: Continue Lipitor 9. Hypothyroidism: Continue levothyroxine 10. substance use: tox screen on admission significant for opiates, benzos, cannabinoids Full code. Xarelto. Problem Qualifiers (1) Morbidly obese: Qualified Code: E66.01 - Morbid obesity, unspecified obesity type (2) Pressure ulcer: Greta Thurston DO Nov 19, 2016 13:30
[2016-11-19 16:00] VITALS: BP 125/62; PULSE 78; RESP 19; TEMP 97.6; O2SAT 96
[2016-11-19] MEDS: SIMETHICONE 80 MG CHEWABLE TAB CHEW PRN (16:45)
[2016-11-19] MEDS: TOLTERODINE TARTRATE 2 MG CAP LA PO SCH (20:40)
[2016-11-19] MEDS: ZOLPIDEM TARTRATE 10 MG TAB PO SCH (20:41)
[2016-11-19] MEDS: RIVAROXABAN 20 MG TAB PO SCH (20:41)
[2016-11-19] MEDS: traZODone HCL 100 MG TAB PO SCH (20:42)
[2016-11-19] MEDS: INSULIN DETEMIR 100 UNITS/ML VIAL SQ SCH (21:43)
[2016-11-20] VITALS (7 sets, daily range): BP systolic 109–140; BP diastolic 55–63; PULSE 76–116; RESP 18–20; TEMP 97.7–100.5; O2SAT 92–98
[2016-11-20] MEDS: MORPHINE SULFATE 100 MG CONTROLLED RELEASE TAB PO SCH ×4 (02:00→18:38)
[2016-11-20] MEDS: MORPHINE SULFATE 30 MG CONTROLLED RELEASE TAB PO SCH ×4 (02:00→17:42)
[2016-11-20] MEDS: ALPRAZolam 1 MG TAB PO PRN ×3 (02:17→22:57)
[2016-11-20] MEDS: COLLAGENASE OINT 30 GM TUBE TOPICAL SCH ×3 (06:00→22:00)
[2016-11-20] MEDS: HYDROmorphone HCL PF 1 MG/ML VIAL IV PUSH PRN ×4 (06:52→22:53)
[2016-11-20] MEDS: BACLOFEN 20 MG TAB PO PRN ×2 (06:52→14:15)
[2016-11-20] MEDS: LEVOTHYROXINE SODIUM 50 MCG TAB PO SCH (06:52)
[2016-11-20] MEDS: INSULIN ASPART SUPPLEMENTAL SCALE SQ SCH ×4 (06:57→23:01)
[2016-11-20] MEDS ORDERED: INSULIN DETEMIR 100 UNITS/ML VIAL SQ SCH (09:00)
[2016-11-20] MEDS: SODIUM CHLORIDE 0.9% FLUSH 10 ML FLUSH IV FLUSH SCH ×2 (09:00→21:00)
[2016-11-20] MEDS: NYSTATIN 100,000 U/GM PWD 15 GM BTL TOPICAL SCH ×2 (09:00→21:00)
[2016-11-20] MEDS: ATORVASTATIN 40 MG TAB PO SCH (09:16)
[2016-11-20] MEDS: buPROPion HCL 150 MG SUSTAINED RELEASE TAB PO SCH ×2 (09:16→22:56)
[2016-11-20] MEDS: FUROSEMIDE 40 MG TAB PO SCH ×2 (09:16→22:56)
[2016-11-20] MEDS: ASCORBIC ACID 500 MG TAB PO SCH ×2 (09:17→22:56)
[2016-11-20] MEDS: FAMOTIDINE 20 MG TAB PO SCH (09:17)
[2016-11-20] MEDS: DOCUSATE SODIUM 100 MG CAP PO SCH ×2 (09:17→22:55)
[2016-11-20] MEDS: INSULIN ASPART 1,000 UNITS/10 ML VIAL SQ SCH ×3 (09:21→17:51)
--- NOTE | 2016-11-20 11:15 | HHI.PR ---
Subjective Remarks Follow up for paraplegia, chronic pain, neurogenic bladder. Patient is doing well. No acute concerns. Per nursing report, patient is getting food from outside and eating candy, drinking soft drinks. This has made it difficult to control his blood glucose. Patient is aware of this and I have talked to him in the past regarding limiting drinks with too much sugar. Objective Vitals Vital Signs Date Time Temp Pulse Resp B/P Pulse Ox O2 Delivery O2 Flow Rate FiO2 11/20/16 09:51 Nasal Mask 40.0 11/20/16 07:54 98.0 92 18 135/56 96 11/20/16 03:07 18 11/20/16 03:07 18 11/20/16 03:07 18 11/20/16 01:50 97 40 11/20/16 00:08 18 11/20/16 00:00 100.5 116 19 140/63 94 11/19/16 16:00 97.6 78 19 125/62 96 11/19/16 14:36 22 11/19/16 12:00 98.3 84 17 111/78 95 I/O 11/19/16 11/19/16 11/19/16 11/20/16 11/20/16 11/20/16 07:00 15:00 23:00 07:00 15:00 23:00 Intake Total 360 ml 1000 ml 800 ml Output Total 1650 ml 500 ml 1750 ml 1600 ml Balance -1290 ml -500 ml -750 ml -800 ml Intake Oral 360 ml 1000 ml 800 ml Output Urine Total 1650 ml 500 ml 1750 ml 1600 ml # Bowel Movements 0 0 0 Result Diagram: 11/16/16 0816 Objective Remarks GENERAL: Morbidly obese male in no distress. Alert, Oriented x 3. SKIN: Warm and dry. HEAD: Normocephalic. EYES: No scleral icterus. No injection or drainage. NECK: Supple, trachea midline. No JVD or lymphadenopathy. CARDIOVASCULAR: Regular rate and rhythm without murmurs, gallops, or rubs. RESPIRATORY: Breath sounds equal bilaterally. No accessory muscle use. GASTROINTESTINAL: Abdomen soft, non-tender, nondistended. Morbid obesity. MUSCULOSKELETAL: No cyanosis, or edema. Left AKA. BACK: Nontender without obvious deformity. No CVA tenderness. Procedures None. A/P Problem List: (1) UTI (urinary tract infection) ICD Code: N39.0 Status: Acute (2) Chronic pain ICD Code: G89.29 Status: Chronic (3) Type 2 diabetes mellitus ICD Code: E11.9 Status: Chronic (4) Morbidly obese ICD Code: E66.01 Status: Chronic (5) Depression ICD Code: F32.9 Status: Chronic (6) Pressure ulcer ICD Code: L89.90 Status: Chronic (7) Sleep apnea ICD Code: G47.30 Status: Chronic (8) Hypothyroidism ICD Code: E03.9 Status: Chronic Assessment and Plan This is a 25-year-old male patient with a medical history significant for paraplegia, neurogenic bladder, hypertension, chronic recurrent DVT, chronic pain, sleep apnea, CHF who was brought to the ED yesterday under Destinee act due to threatening staff at his nursing facility. 1. UTI: UA significant for large leukocyte esterase. Dr. Meraz urology was consulted to assist with placement of a indwelling [place]. Continue Levaquin 500 mg Qday for a total of 7 days. End date 11/22/2016. 2. Diabetes: Accu-Cheks, diabetic diet. Increase Levemir 35 units BID. Continue Aspart 6 units TIDAC. Continue sliding scale insulin. Advised patient to control sugar intake from candy and soft drinks. 3. Chronic pain. Home medications baclofen, morphine, Dilaudid 1mg IV for breakthrough pain 4. Morbid obesity: Outpatient general surgery referral needed for possible surgical interventions. 5. Chronic pressure ulcers: Wound care was consulted. Discussed with nurse. Documented on admission. 6. Sleep apnea, CPAP at night 7. Anxiety and depression: Home medications Wellbutrin, Lexapro, Xanax. Was evaluated by psych in the ER, Destinee acted lifted, did not meet inpatient psychiatric and admission criteria. We'll continue his outpatient psychiatric care upon discharge. Continue Home meds trazodone, Wellbutrin. Will consider switching Wellbutrin to Lexapro or perhaps Zoloft. 8. Hyperlipidemia: Continue Lipitor 9. Hypothyroidism: Continue levothyroxine 10. substance use: tox screen on admission significant for opiates, benzos, cannabinoids Full code. Xarelto. Problem Qualifiers (1) Morbidly obese: Qualified Code: E66.01 - Morbid obesity, unspecified obesity type (2) Pressure ulcer: Greta Thurston DO Nov 20, 2016 11:15
[2016-11-20] MEDS: LEVOFLOXACIN 500 MG TAB PO SCH (11:51)
[2016-11-20] MEDS: TOLTERODINE TARTRATE 2 MG CAP LA PO SCH (21:00)
[2016-11-20] MEDS: traZODone HCL 100 MG TAB PO SCH (22:55)
[2016-11-20] MEDS: ZOLPIDEM TARTRATE 10 MG TAB PO SCH (22:55)
[2016-11-20] MEDS: INSULIN DETEMIR 100 UNITS/ML VIAL SQ SCH (23:01)
[2016-11-21] MEDS: BACLOFEN 20 MG TAB PO PRN ×3 (00:48→22:18)
[2016-11-21] MEDS: RIVAROXABAN 20 MG TAB PO SCH ×2 (00:49→22:18)
[2016-11-21] MEDS: MORPHINE SULFATE 100 MG CONTROLLED RELEASE TAB PO SCH ×3 (04:32→17:59)
[2016-11-21] MEDS: MORPHINE SULFATE 30 MG CONTROLLED RELEASE TAB PO SCH ×3 (04:32→18:00)
[2016-11-21] MEDS: LEVOTHYROXINE SODIUM 50 MCG TAB PO SCH (04:32)
[2016-11-21] MEDS: COLLAGENASE OINT 30 GM TUBE TOPICAL SCH ×3 (06:00→22:00)
[2016-11-21] MEDS: INSULIN ASPART 1,000 UNITS/10 ML VIAL SQ SCH ×3 (06:31→17:59)
[2016-11-21] MEDS: INSULIN ASPART SUPPLEMENTAL SCALE SQ SCH ×4 (06:32→21:00)
[2016-11-21] MEDS: HYDROmorphone HCL PF 1 MG/ML VIAL IV PUSH PRN ×5 (06:52→22:34)
[2016-11-21 07:50] VITALS: BP 105/55; PULSE 93; RESP 19; TEMP 98.8; O2SAT 96
[2016-11-21] MEDS: NYSTATIN 100,000 U/GM PWD 15 GM BTL TOPICAL SCH ×2 (09:00→21:00)
[2016-11-21] MEDS: DOCUSATE SODIUM 100 MG CAP PO SCH ×3 (09:31→22:18)
[2016-11-21] MEDS: FUROSEMIDE 40 MG TAB PO SCH ×3 (09:31→22:18)
[2016-11-21] MEDS: FAMOTIDINE 20 MG TAB PO SCH (09:31)
[2016-11-21] MEDS: ASCORBIC ACID 500 MG TAB PO SCH ×2 (09:31→22:18)
[2016-11-21] MEDS: ATORVASTATIN 40 MG TAB PO SCH (09:32)
[2016-11-21] MEDS: buPROPion HCL 150 MG SUSTAINED RELEASE TAB PO SCH ×2 (09:32→22:18)
[2016-11-21] MEDS: SODIUM CHLORIDE 0.9% FLUSH 10 ML FLUSH IV FLUSH SCH ×2 (09:33→21:00)
[2016-11-21] MEDS: INSULIN DETEMIR 100 UNITS/ML VIAL SQ SCH ×2 (09:33→21:00)
[2016-11-21] MEDS: LEVOFLOXACIN 500 MG TAB PO SCH (10:53)
[2016-11-21 11:50] VITALS: BP 101/50; PULSE 77; RESP 20; TEMP 96.2; O2SAT 96
[2016-11-21] MEDS: ALPRAZolam 1 MG TAB PO PRN ×2 (14:46→22:45)
[2016-11-21 15:45] VITALS: BP 119/59; PULSE 96; RESP 20; TEMP 96.1; O2SAT 97
[2016-11-21 20:00] VITALS: BP 106/53; PULSE 108; RESP 28; TEMP 97.5; O2SAT 92
[2016-11-21] MEDS: TOLTERODINE TARTRATE 2 MG CAP LA PO SCH (22:18)
[2016-11-21] MEDS: ZOLPIDEM TARTRATE 10 MG TAB PO SCH (22:45)
[2016-11-21] MEDS: traZODone HCL 100 MG TAB PO SCH (22:45)
--- NOTE | 2016-11-21 23:42 | HHI.PR ---
Subjective Remarks Follow up for paraplegia, chronic pain, neurogenic bladder. Mr. Martin is doing well. However, he complains of urine leaking and soaking his bedsheet, blanket etc. He also requests regular diet. Objective Vitals Vital Signs Date Time Temp Pulse Resp B/P Pulse Ox O2 Delivery O2 Flow Rate FiO2 11/21/16 20:00 97.5 108 28 106/53 92 11/21/16 15:45 96.1 96 20 119/59 97 11/21/16 11:50 96.2 77 20 101/50 96 11/21/16 07:50 98.8 93 19 105/55 96 11/21/16 01:08 24 11/21/16 01:07 22 I/O 11/20/16 11/20/16 11/20/16 11/21/16 11/21/16 11/21/16 07:00 15:00 23:00 07:00 15:00 23:00 Intake Total 800 ml 2720 ml 900 ml 1200 ml Output Total 1600 ml 6300 ml 2200 ml 3 ml 4500 ml Balance -800 ml -3580 ml -1300 ml -3 ml -3300 ml Intake Oral 800 ml 2720 ml 900 ml 1200 ml Output Urine Total 1600 ml 6300 ml 2200 ml 4500 ml Stool Total 3 ml # Voids 1 # Bowel Movements 0 1 0 Objective Remarks GENERAL: Morbidly obese male in no distress. Alert, Oriented x 3. SKIN: Warm and dry. HEAD: Normocephalic. EYES: No scleral icterus. No injection or drainage. NECK: Supple, trachea midline. No JVD or lymphadenopathy. CARDIOVASCULAR: Regular rate and rhythm without murmurs, gallops, or rubs. RESPIRATORY: Breath sounds equal bilaterally. No accessory muscle use. GASTROINTESTINAL: Abdomen soft, non-tender, nondistended. Morbid obesity. MUSCULOSKELETAL: No cyanosis, or edema. Left AKA. BACK: Nontender without obvious deformity. No CVA tenderness. Procedures None. A/P Problem List: (1) UTI (urinary tract infection) ICD Code: N39.0 Status: Acute (2) Chronic pain ICD Code: G89.29 Status: Chronic (3) Type 2 diabetes mellitus ICD Code: E11.9 Status: Chronic (4) Morbidly obese ICD Code: E66.01 Status: Chronic (5) Depression ICD Code: F32.9 Status: Chronic (6) Pressure ulcer ICD Code: L89.90 Status: Chronic (7) Sleep apnea ICD Code: G47.30 Status: Chronic (8) Hypothyroidism ICD Code: E03.9 Status: Chronic Assessment and Plan This is a 25-year-old male patient with a medical history significant for paraplegia, neurogenic bladder, hypertension, chronic recurrent DVT, chronic pain, sleep apnea, CHF who was brought to the ED yesterday under Felipe act due to threatening staff at his nursing facility. 1. UTI: UA significant for large leukocyte esterase. Dr. Meraz urology was consulted to assist with placement of a indwelling [place]. Continue Levaquin 500 mg Qday for a total of 7 days. End date 11/22/2016. - Requested RN to page Dr. Meraz to see if anything can be done with regarding urinary leakage from the catheter. 2. Diabetes: Accu-Cheks, diabetic diet. Increase Levemir 35 units BID. Continue Aspart 6 units TIDAC. Continue sliding scale insulin. Advised patient to control sugar intake from candy and soft drinks. Will switch to Regular diet 3. Chronic pain. Home medications baclofen, morphine, Dilaudid 1mg IV for breakthrough pain 4. Morbid obesity: Outpatient general surgery referral needed for possible surgical interventions. 5. Chronic pressure ulcers: Wound care was consulted. Discussed with nurse. Documented on admission. 6. Sleep apnea, CPAP at night 7. Anxiety and depression: Home medications Wellbutrin, Lexapro, Xanax. Was evaluated by psych in the ER, Destinee acted lifted, did not meet inpatient psychiatric and admission criteria. We'll continue his outpatient psychiatric care upon discharge. Continue Home meds trazodone, Wellbutrin. Will consider switching Wellbutrin to Lexapro or perhaps Zoloft. 8. Hyperlipidemia: Continue Lipitor 9. Hypothyroidism: Continue levothyroxine 10. substance use: tox screen on admission significant for opiates, benzos, cannabinoids Full code. Xarelto. Problem Qualifiers (1) Morbidly obese: Qualified Code: E66.01 - Morbid obesity, unspecified obesity type (2) Pressure ulcer: Greta Thurston DO Nov 21, 2016 23:42
[2016-11-22 00:13] VITALS: BP 107/51; PULSE 84; RESP 25; TEMP 96.9; O2SAT 98
[2016-11-22] MEDS: MORPHINE SULFATE 100 MG CONTROLLED RELEASE TAB PO SCH ×3 (02:05→17:05)
[2016-11-22] MEDS: MORPHINE SULFATE 30 MG CONTROLLED RELEASE TAB PO SCH ×3 (02:05→17:05)
[2016-11-22 04:00] VITALS: BP 108/55; PULSE 75; RESP 20; TEMP 97.7; O2SAT 96
[2016-11-22] MEDS: HYDROmorphone HCL PF 1 MG/ML VIAL IV PUSH PRN (04:53)
[2016-11-22] MEDS: LEVOTHYROXINE SODIUM 50 MCG TAB PO SCH (04:54)
[2016-11-22] MEDS: COLLAGENASE OINT 30 GM TUBE TOPICAL SCH ×2 (04:56→14:00)
[2016-11-22] MEDS: INSULIN ASPART SUPPLEMENTAL SCALE SQ SCH ×4 (05:01→21:00)
[2016-11-22 08:00] VITALS: BP 117/63; PULSE 87; RESP 18; TEMP 98; O2SAT 94
[2016-11-22] MEDS: INSULIN ASPART 1,000 UNITS/10 ML VIAL SQ SCH ×3 (08:00→17:00)
[2016-11-22] MEDS: FAMOTIDINE 20 MG TAB PO SCH (08:36)
[2016-11-22] MEDS: BACLOFEN 20 MG TAB PO PRN ×2 (08:37→20:49)
[2016-11-22] MEDS: ATORVASTATIN 40 MG TAB PO SCH (08:37)
[2016-11-22] MEDS: buPROPion HCL 150 MG SUSTAINED RELEASE TAB PO SCH ×2 (08:37→20:50)
[2016-11-22] MEDS: ASCORBIC ACID 500 MG TAB PO SCH ×2 (08:37→20:50)
[2016-11-22] MEDS: ALPRAZolam 1 MG TAB PO PRN ×2 (08:38→20:50)
[2016-11-22] MEDS: DOCUSATE SODIUM 100 MG CAP PO SCH ×2 (08:39→20:49)
[2016-11-22] MEDS: INSULIN DETEMIR 100 UNITS/ML VIAL SQ SCH (08:39)
[2016-11-22] MEDS: SODIUM CHLORIDE 0.9% FLUSH 10 ML FLUSH IV FLUSH SCH ×2 (08:39→21:00)
[2016-11-22] MEDS: FUROSEMIDE 40 MG TAB PO SCH ×2 (08:40→20:50)
[2016-11-22] MEDS: NYSTATIN 100,000 U/GM PWD 15 GM BTL TOPICAL SCH (08:44)
[2016-11-22 12:00] VITALS: BP 116/54; PULSE 91; RESP 18; TEMP 97.5; O2SAT 93
[2016-11-22 16:00] VITALS: BP 123/59; PULSE 88; RESP 20; TEMP 96.4; O2SAT 93
--- NOTE | 2016-11-22 18:04 | HHI.PR ---
Subjective Remarks Follow up for paraplegia, chronic pain, neurogenic bladder. Mr. Martin reports being in a lot of pain due to movement. His urinary catheter insertion site is leaking and often he has to move which causes pain. No fever, chills. Objective Vitals Vital Signs Date Time Temp Pulse Resp B/P Pulse Ox O2 Delivery O2 Flow Rate FiO2 11/22/16 16:00 96.4 88 20 123/59 93 11/22/16 12:00 97.5 91 18 116/54 93 11/22/16 08:00 98.0 87 18 117/63 94 11/22/16 04:00 97.7 75 20 108/55 96 11/22/16 00:13 96.9 84 25 107/51 98 11/21/16 20:00 97.5 108 28 106/53 92 I/O 11/21/16 11/21/16 11/21/16 11/22/16 11/22/16 11/22/16 07:00 15:00 23:00 07:00 15:00 23:00 Intake Total 900 ml 1200 ml Output Total 2200 ml 3 ml 4500 ml 1000 ml 1700 ml Balance -1300 ml -3 ml -3300 ml -1000 ml -1700 ml Intake Oral 900 ml 1200 ml Output Urine Total 2200 ml 4500 ml 1000 ml 1700 ml Stool Total 3 ml # Bowel Movements 0 1 1 Objective Remarks GENERAL: Morbidly obese male in no distress. Alert, Oriented x 3. SKIN: Warm and dry. HEAD: Normocephalic. EYES: No scleral icterus. No injection or drainage. NECK: Supple, trachea midline. No JVD or lymphadenopathy. CARDIOVASCULAR: Regular rate and rhythm without murmurs, gallops, or rubs. RESPIRATORY: Breath sounds equal bilaterally. No accessory muscle use. GASTROINTESTINAL: Abdomen soft, non-tender, nondistended. Morbid obesity. MUSCULOSKELETAL: No cyanosis, or edema. Left AKA. BACK: Nontender without obvious deformity. No CVA tenderness. Procedures None. A/P Problem List: (1) UTI (urinary tract infection) ICD Code: N39.0 Status: Acute (2) Chronic pain ICD Code: G89.29 Status: Chronic (3) Type 2 diabetes mellitus ICD Code: E11.9 Status: Chronic (4) Morbidly obese ICD Code: E66. Status: Chronic (5) Depression ICD Code: F32.9 Status: Chronic (6) Pressure ulcer ICD Code: L89.90 Status: Chronic (7) Sleep apnea ICD Code: G47.30 Status: Chronic (8) Hypothyroidism ICD Code: E03.9 Status: Chronic Assessment and Plan This is a 25-year-old male patient with a medical history significant for paraplegia, neurogenic bladder, hypertension, chronic recurrent DVT, chronic pain, sleep apnea, CHF who was brought to the ED yesterday under Felipe act due to threatening staff at his nursing facility. 1. UTI: UA significant for large leukocyte esterase. Dr. Meraz urology was consulted to assist with placement of a indwelling Montelongo. Continue Levaquin 500 mg Qday for a total of 7 days. End date 11/22/2016. - Requested RN to page Dr. Meraz on 11/21/2016 to see if anything can be done with regarding urinary leakage from the catheter. 2. Diabetes: Accu-Cheks, diabetic diet. Increase Levemir 35 units BID. Continue Aspart 6 units TIDAC. Continue sliding scale insulin. Advised patient to control sugar intake from candy and soft drinks. Blood glucose has been high. If not well controlled, we will have to change diet back to Diabetic diet (2200 tom). 3. Chronic pain. Home medications baclofen, morphine, Dilaudid 1mg IV for breakthrough pain. - Patient does not appear to be in pain. At this point, we will refrain from increasing IV Dilaudid. - He is on Xanax 2mg Q6hrs PRN, Baclofen 20mg Q6hrs PRN, Morphine 30mg PO Q8hrs, Trazodone 200mg QHS. 4. Morbid obesity: Outpatient general surgery referral needed for possible surgical interventions. 5. Chronic pressure ulcers: Wound care was consulted. Discussed with nurse. Documented on admission. 6. Sleep apnea, CPAP at night 7. Anxiety and depression: Home medications Wellbutrin, Lexapro, Xanax. Was evaluated by psych in the ER, Destinee acted lifted, did not meet inpatient psychiatric and admission criteria. We'll continue his outpatient psychiatric care upon discharge. Continue Home meds trazodone, Wellbutrin. Will consider switching Wellbutrin to Lexapro or perhaps Zoloft. 8. Hyperlipidemia: Continue Lipitor 9. Hypothyroidism: Continue levothyroxine 10. substance use: tox screen on admission significant for opiates, benzos, cannabinoids Full code. Xarelto. Problem Qualifiers (1) Morbidly obese: Qualified Code: E66.01 - Morbid obesity, unspecified obesity type (2) Pressure ulcer: Greta Thurston DO Nov 22, 2016 18:04
[2016-11-22 20:00] VITALS: BP 116/55; PULSE 75; RESP 18; TEMP 98; O2SAT 98
[2016-11-22] MEDS: RIVAROXABAN 20 MG TAB PO SCH (20:49)
[2016-11-22] MEDS: traZODone HCL 100 MG TAB PO SCH (20:49)
[2016-11-22] MEDS: TOLTERODINE TARTRATE 2 MG CAP LA PO SCH (20:50)
[2016-11-22] MEDS: ZOLPIDEM TARTRATE 10 MG TAB PO SCH (20:50)
[2016-11-23] VITALS: BP 109/53; PULSE 71; RESP 16; TEMP 96.4; O2SAT 99
[2016-11-23] MEDS: INSULIN DETEMIR 100 UNITS/ML VIAL SQ SCH ×3 (00:23→22:44)
[2016-11-23] MEDS: COLLAGENASE OINT 30 GM TUBE TOPICAL SCH ×3 (00:24→12:45)
[2016-11-23] MEDS: NYSTATIN 100,000 U/GM PWD 15 GM BTL TOPICAL SCH ×3 (00:24→21:00)
[2016-11-23] MEDS: MORPHINE SULFATE 100 MG CONTROLLED RELEASE TAB PO SCH ×3 (02:53→18:00)
[2016-11-23] MEDS: MORPHINE SULFATE 30 MG CONTROLLED RELEASE TAB PO SCH ×3 (02:53→18:00)
[2016-11-23 04:37] VITALS: O2SAT 97
[2016-11-23] MEDS: LEVOTHYROXINE SODIUM 50 MCG TAB PO SCH (06:00)
[2016-11-23] MEDS: BACLOFEN 20 MG TAB PO PRN ×2 (06:56→12:08)
[2016-11-23] MEDS: ALPRAZolam 1 MG TAB PO PRN ×3 (06:56→22:42)
[2016-11-23] MEDS: INSULIN ASPART SUPPLEMENTAL SCALE SQ SCH ×4 (07:00→22:48)
[2016-11-23] MEDS: HYDROmorphone HCL PF 1 MG/ML VIAL IV PUSH PRN ×3 (07:54→22:36)
[2016-11-23 08:00] VITALS: BP 126/67; PULSE 84; RESP 18; TEMP 95.8; O2SAT 97
--- NOTE | 2016-11-23 10:22 | HHI.PR ---
Subjective Remarks Follow up for paraplegia, chronic pain, neurogenic bladder. The patient continues to complain of pain secondary to frequent movement and position changes. He complains of leakage around the catheter insertion site and has to be cleaned multiple times throughout the day. Denies any other medical complaints including fevers/chills. Objective Vitals Vital Signs Date Time Temp Pulse Resp B/P Pulse Ox O2 Delivery O2 Flow Rate FiO2 11/23/16 08:00 95.8 84 18 126/67 97 11/23/16 04:37 Full Face Mask 40.0 11/23/16 00:00 96.4 71 16 109/53 99 11/22/16 20:00 98.0 75 18 116/55 98 11/22/16 16:00 96.4 88 20 123/59 93 11/22/16 12:00 97.5 91 18 116/54 93 I/O 11/22/16 11/22/16 11/22/16 11/23/16 11/23/16 11/23/16 07:00 15:00 23:00 07:00 15:00 23:00 Intake Total 720 ml Output Total 1000 ml 1700 ml 1450 ml 2450 ml Balance -1000 ml -1700 ml -730 ml -2450 ml Intake Oral 720 ml Output Urine Total 1000 ml 1700 ml 1450 ml 2450 ml # Bowel Movements 1 1 0 0 Objective Remarks GENERAL: Morbidly obese male in no distress. Alert, Oriented x 3. SKIN: Warm and dry. HEAD: Normocephalic. EYES: No scleral icterus. No injection or drainage. NECK: Supple, trachea midline. No JVD or lymphadenopathy. CARDIOVASCULAR: Regular rate and rhythm without murmurs, gallops, or rubs. RESPIRATORY: Breath sounds equal bilaterally. No accessory muscle use. GASTROINTESTINAL: Abdomen soft, non-tender, nondistended. Morbid obesity. MUSCULOSKELETAL: No cyanosis, or edema. Left AKA. BACK: Nontender without obvious deformity. No CVA tenderness. Procedures None. Medications and IVs Current Medications Medications (Trade) Dose Ordered Sig/Shyam Route Start Time Stop Time Status Last Admin (NS Flush) 2 ml UNSCH PRN IV FLUSH 11/10/16 21:45 11/11/16 15:19 (NS Flush) 2 ml BID IV FLUSH 11/11/16 09:00 11/22/16 21:00 (Narcan Inj) 0.4 mg UNSCH PRN IV 11/10/16 21:45 (Xanax) 2 mg Q6HR PRN PO 11/11/16 02:00 11/23/16 06:56 (Vitamin C) 500 mg BID PO 11/11/16 09:00 11/22/16 20:50 (Lipitor) 40 mg DAILY PO 11/11/16 09:00 11/22/16 08:37 (Lioresal) 20 mg Q6HR PRN PO 11/11/16 02:00 11/23/16 06:56 (Wellbutrin Sr) 150 mg BID PO 11/11/16 09:00 11/22/16 20:50 (Peridex 0.12% Liq) 10 ml BID PRN SWISH-SPIT 11/11/16 02:00 (Lotrimin 1% Cream) 1 applic DAILY PRN TOPICAL 11/11/16 02:00 11/11/16 09:46 (Santyl Oint) 1 applic Q8HR TOPICAL 11/11/16 06:00 11/23/16 00:24 (Lasix) 40 mg BID PO 11/11/16 09:00 11/22/16 20:50 (Synthroid) 50 mcg DAILY@06 PO 11/11/16 06:00 11/23/16 06:00 (Oramorph Sr) 30 mg Q8H PO 11/11/16 02:00 11/23/16 02:53 (Oramorph Sr) 100 mg Q8H PO 11/11/16 02:00 11/23/16 02:53 (KCl) 20 meq DAILY PO 11/11/16 09:00 Hold 11/16/16 08:47 (Phenergan) 25 mg Q8HR PRN PO 11/11/16 02:00 (Pepcid) 20 mg DAILY PO 11/11/16 09:00 11/22/16 08:36 (Xarelto) 20 mg HS PO 11/11/16 21:00 11/22/16 20:49 (Mylicon Chew) 160 mg ACHS PRN CHEW 11/11/16 02:00 11/19/16 16:45 (Ambien) 10 mg HS PO 11/11/16 21:00 11/22/16 20:50 (Detrol La) 2 mg HS PO 11/11/16 21:00 11/22/16 20:50 (Roxicodone) 30 mg Q4H PRN PO 11/11/16 04:00 11/23/16 06:55 (Zofran Inj) 4 mg Q6HR PRN IV PUSH 11/11/16 03:15 11/12/16 03:36 (D50w (Vial) Inj) 25 ml UNSCH PRN IV PUSH 11/12/16 11:45 (Glucagon Inj) 1 mg UNSCH PRN OTHER 11/12/16 11:45 (Colace) 100 mg BID PO 11/13/16 21:00 11/22/16 20:49 (Citroma Liq) 600 ml Q24H PRN PO 11/13/16 14:45 11/18/16 09:38 (Mycostatin Powder) 1 applic BID TOPICAL 11/13/16 21:00 11/23/16 00:24 (Desyrel) 200 mg HS PO 11/17/16 21:00 11/22/16 20:49 (Dilaudid Pf Inj) 1 mg Q4H PRN IV PUSH 11/17/16 02:15 11/23/16 07:54 (Tylenol) 650 mg Q4H PRN PO 11/18/16 17:30 11/19/16 13:58 (NovoLOG INJ) 6 units TIDAC SQ 11/20/16 08:00 11/22/16 17:00 (Levemir Inj) 35 units BID SQ 11/20/16 21:00 11/23/16 00:23 A/P Problem List: (1) UTI (urinary tract infection) ICD Code: N39.0 Status: Acute (2) Chronic pain ICD Code: G89.29 Status: Chronic (3) Type 2 diabetes mellitus ICD Code: E11.9 Status: Chronic (4) Morbidly obese ICD Code: E66.01 Status: Chronic (5) Depression ICD Code: F32.9 Status: Chronic (6) Pressure ulcer ICD Code: L89.90 Status: Chronic (7) Sleep apnea ICD Code: G47.30 Status: Chronic (8) Hypothyroidism ICD Code: E03.9 Status: Chronic Assessment and Plan 25-year-old male patient with a medical history significant for paraplegia, neurogenic bladder, hypertension, chronic recurrent DVT, chronic pain, sleep apnea, CHF who was brought to the ED yesterday under Felipe act due to threatening staff at his nursing facility. UTI: UA significant for large leukocyte esterase. Dr. Meraz urology was consulted to assist with placement of a indwelling Montelongo. - S/p Levaquin 500 mg Qday for a total of 7 days. End date 11/22/2016. - Requested RN to page Dr. Meraz on 11/21/2016 to see if anything can be done with regarding urinary leakage from the catheter. - will discuss with urology today Diabetes: Advised patient to control sugar intake from candy and soft drinks ( although patient has liter bottle of Mountain Dew in the room). - Monitor Accu-Cheks, Continue sliding scale insulin. - Increase Levemir 35 units BID. Continue Aspart 6 units TIDAC. - Blood glucose has been high. If not well controlled, we will have to change diet back to Diabetic diet (2200 tom). Chronic pain. Home medications baclofen, morphine, Dilaudid 1mg IV for breakthrough pain. - Patient does not appear to be in pain. At this point, we will refrain from increasing IV Dilaudid. - He is on Xanax 2mg Q6hrs PRN, Baclofen 20mg Q6hrs PRN, Morphine 130mg PO Q8hrs, Trazodone 200mg QHS. Morbid obesity: Outpatient general surgery referral needed for possible surgical interventions. Chronic pressure ulcers: Wound care was consulted. Discussed with nurse. Documented on admission. Sleep apnea, CPAP at night Anxiety and depression: Was evaluated by psych in the ER, Destinee acted lifted, did not meet inpatient psychiatric and admission criteria. -Continue his outpatient psychiatric care upon discharge. -Continue Home meds trazodone, Wellbutrin. -Will consider switching Wellbutrin to Lexapro or perhaps Zoloft. Hyperlipidemia: Continue Lipitor Hypothyroidism: Continue levothyroxine Substance use: tox screen on admission significant for opiates, benzos, cannabinoids Full code. Xarelto. Written by Digna Sinha, acting as scribe for Dr. Thurston on 11/23/16 at 10:15. All or portions of this note were transcribed by scribe LONI Good. I , Dr. Cornell Thurston personally performed the history, physical exam, and medical decision making; and confirmed the accuracy of the information in the transcribed note. Authenticated by Dr. Cornell Thurston on 11/23/16 at 23:53. Problem Qualifiers (1) Morbidly obese: Qualified Code: E66.01 - Morbid obesity, unspecified obesity type (2) Pressure ulcer: Digna Sinha PA-C Nov 23, 2016 10:22 Greta Thurston DO Nov 23, 2016 23:53
[2016-11-23] MEDS: buPROPion HCL 150 MG SUSTAINED RELEASE TAB PO SCH ×2 (11:54→22:42)
[2016-11-23] MEDS: FAMOTIDINE 20 MG TAB PO SCH (11:54)
[2016-11-23] MEDS: DOCUSATE SODIUM 100 MG CAP PO SCH ×2 (11:54→22:43)
[2016-11-23] MEDS: ATORVASTATIN 40 MG TAB PO SCH (11:54)
[2016-11-23] MEDS: FUROSEMIDE 40 MG TAB PO SCH ×2 (11:54→21:00)
[2016-11-23] MEDS: ASCORBIC ACID 500 MG TAB PO SCH ×2 (11:56→22:42)
[2016-11-23 12:00] VITALS: BP 114/72; PULSE 77; RESP 18; TEMP 96.1; O2SAT 95
[2016-11-23] MEDS: INSULIN ASPART 1,000 UNITS/10 ML VIAL SQ SCH ×2 (12:00→17:00)
[2016-11-23] MEDS: SODIUM CHLORIDE 0.9% FLUSH 10 ML FLUSH IV FLUSH SCH ×2 (12:04→22:30)
[2016-11-23] MEDS ORDERED: POVIDONE IODINE 10% OINT 1 PACKET TOPICAL SCH (12:45)
[2016-11-23 16:00] VITALS: BP 113/53; PULSE 86; RESP 18; TEMP 96.3; O2SAT 94
[2016-11-23 20:00] VITALS: BP 118/58; PULSE 73; RESP 16; TEMP 97.2; O2SAT 96
[2016-11-23] MEDS ORDERED: INSULIN HUMAN REGULAR 1,000 UNITS/10 ML VIAL IV PUSH ONE (20:45)
[2016-11-23] MEDS: TOLTERODINE TARTRATE 2 MG CAP LA PO SCH (21:00)
[2016-11-23] MEDS: SIMETHICONE 80 MG CHEWABLE TAB CHEW PRN (22:35)
[2016-11-23] MEDS: RIVAROXABAN 20 MG TAB PO SCH (22:40)
[2016-11-23] MEDS: ZOLPIDEM TARTRATE 10 MG TAB PO SCH (22:40)
[2016-11-23] MEDS: traZODone HCL 100 MG TAB PO SCH (22:43)
[2016-11-23] MEDS: POVIDONE IODINE 10% OINT 30 GM TUBE TOPICAL SCH (22:51)
[2016-11-24 01:47] VITALS: BP 124/56; PULSE 80; RESP 18; TEMP 96; O2SAT 98
[2016-11-24] MEDS: MORPHINE SULFATE 30 MG CONTROLLED RELEASE TAB PO SCH ×3 (03:00→18:00)
[2016-11-24] MEDS: MORPHINE SULFATE 100 MG CONTROLLED RELEASE TAB PO SCH ×3 (03:00→18:00)
[2016-11-24] MEDS: BACLOFEN 20 MG TAB PO PRN ×3 (03:17→12:07)
[2016-11-24] MEDS: HYDROmorphone HCL PF 1 MG/ML VIAL IV PUSH PRN ×2 (03:17→12:52)
[2016-11-24] MEDS: LEVOTHYROXINE SODIUM 50 MCG TAB PO SCH (06:06)
[2016-11-24] MEDS: INSULIN ASPART SUPPLEMENTAL SCALE SQ SCH ×4 (06:08→22:34)
[2016-11-24 06:30] VITALS: BP 140/57; PULSE 98; RESP 16; TEMP 96.5; O2SAT 97
[2016-11-24] MEDS: ALPRAZolam 1 MG TAB PO PRN ×2 (06:42→12:48)
[2016-11-24] MEDS: INSULIN ASPART 1,000 UNITS/10 ML VIAL SQ SCH ×3 (08:00→17:00)
[2016-11-24 09:00] VITALS: BP 127/66; PULSE 77; RESP 20; TEMP 97.3; O2SAT 94
[2016-11-24] MEDS: COLLAGENASE OINT 30 GM TUBE TOPICAL SCH (09:00)
[2016-11-24] MEDS: POVIDONE IODINE 10% OINT 30 GM TUBE TOPICAL SCH (09:00)
[2016-11-24] MEDS: SODIUM CHLORIDE 0.9% FLUSH 10 ML FLUSH IV FLUSH SCH ×2 (09:00→21:00)
[2016-11-24] MEDS: NYSTATIN 100,000 U/GM PWD 15 GM BTL TOPICAL SCH ×2 (09:00→22:35)
[2016-11-24] MEDS: FUROSEMIDE 40 MG TAB PO SCH ×2 (09:00→22:34)
[2016-11-24] MEDS: INSULIN DETEMIR 100 UNITS/ML VIAL SQ SCH ×2 (09:00→22:35)
[2016-11-24] MEDS: DOCUSATE SODIUM 100 MG CAP PO SCH ×2 (10:21→22:34)
[2016-11-24] MEDS: ASCORBIC ACID 500 MG TAB PO SCH ×2 (10:22→22:34)
[2016-11-24] MEDS: FAMOTIDINE 20 MG TAB PO SCH (10:22)
[2016-11-24] MEDS: ATORVASTATIN 40 MG TAB PO SCH (10:22)
[2016-11-24] MEDS: buPROPion HCL 150 MG SUSTAINED RELEASE TAB PO SCH (10:23)
[2016-11-24 11:30] VITALS: BP 141/68; PULSE 76; RESP 18; TEMP 97.4; O2SAT 93
[2016-11-24 11:38] LABS: BICARBONATE 32.2 MEQ/L (21.0-32.0); POTASSIUM 4.6 MEQ/L (3.5-5.1)
--- NOTE | 2016-11-24 14:26 | HHI.PYPN ---
Subjective Remarks Patient seen for psychiatric reevaluation today, he was found sleeping, difficult to arouse and poorly cooperative with interview due to sleeplessness. He says that he has been doing fine, just a little sad due to his lengthy hospitalization. He reports frequent sadness, low energy, but good sleep, and good appetite. Discussed with patient noncompliance with recommendations about food restriction, but he states that "eating what I like these may be my best way to cope with being him here so long". He denies suicidal or homicidal ideation, he denies visual and auditory hallucinations. Patient is fully oriented 3. Review of Systems Other No somatic complaints Objective Alert: Yes [place]: Person, Place, Date, Situation Mood: Depressed Affect: Restricted Memory Intact: Immediate, Recent, Remote Hallucinations: Other (none) Delusions: No Delusion Type: Other (none) Suicidal: Ideation (he denies) Homicidal: Ideation (he denies) Insight/Judgment Fair Labs Test 11/24/16 10:40 Sodium Level 133 MEQ/L Potassium Level 4.6 MEQ/L Chloride Level 95 MEQ/L Carbon Dioxide Level 32.2 MEQ/L Anion Gap 6 MEQ/L Blood Urea Nitrogen 15 MG/DL Creatinine 0.95 MG/DL Estimat Glomerular Filtration 95 ML/MIN Rate Random Glucose 388 MG/DL Calcium Level 8.9 MG/DL Vitals/IOs Vital Signs Date Time Temp Pulse Resp B/P Pulse Ox O2 Delivery O2 Flow Rate FiO2 11/24/16 11:30 97.4 76 18 141/68 93 11/23/16 04:37 Full Face Mask 40.0 Intake and Output 11/23/16 11/23/16 11/24/16 08:00 16:00 00:00 Intake Total 920 ml Output Total 2450 ml 1725 ml 1500 ml Balance -2450 ml -1725 ml -580 ml Assessment & Plan Problem List: (1) Adult antisocial behavior ICD Code: Z72.811 (2) Unspecified personality disorder ICD Code: F60.9 (3) PTSD (post-traumatic stress disorder) Assessment & Plan: Will increase Wellbutrin to 200 mg twice a day to help the patient with depression. Oppositional behavior and disregard of medical recommendations rather than due to mood disorder is most probably also related with underlying personality component. ICD Code: F43.10 Assessment & Plan Estimated LOS: days Justification for Cont. Inpt. Patient does not meet criteria for psychiatric admission at this moment Luis Antonio Blanchard MD Nov 24, 2016 14:26
--- NOTE | 2016-11-24 15:07 | HHI.PR ---
Subjective Remarks Follow up for paraplegia, chronic pain, neurogenic bladder. Patient is doing well. He is somewhat depressed and that's why he is not controlling what he eats. I discussed with Dr. Meraz earlier regarding his kyle catheter and leak around the insertion site. Dr. Meraz will consider doing a cystoscopy on 11/25/2016. Objective Vitals Vital Signs Date Time Temp Pulse Resp B/P Pulse Ox O2 Delivery O2 Flow Rate FiO2 11/24/16 11:30 97.4 76 18 141/68 93 11/24/16 09:00 97.3 77 20 127/66 94 11/24/16 06:30 96.5 98 16 140/57 97 11/24/16 01:47 96.0 80 18 124/56 98 11/23/16 20:00 97.2 73 16 118/58 96 11/23/16 16:00 96.3 86 18 113/53 94 I/O 11/23/16 11/23/16 11/23/16 11/24/16 11/24/16 11/24/16 06:59 14:59 22:59 06:59 14:59 22:59 Intake Total 920 ml Output Total 2450 ml 1725 ml 1500 ml 3500 ml Balance -2450 ml -1725 ml -580 ml -3500 ml Intake Oral 920 ml Output Urine Total 2450 ml 1725 ml 1500 ml 3500 ml # Bowel Movements 0 1 0 Result Diagram: 11/24/16 1040 Objective Remarks GENERAL: Morbidly obese male in no distress. Alert, Oriented x 3. SKIN: Warm and dry. HEAD: Normocephalic. EYES: No scleral icterus. No injection or drainage. NECK: Supple, trachea midline. No JVD or lymphadenopathy. CARDIOVASCULAR: Regular rate and rhythm without murmurs, gallops, or rubs. RESPIRATORY: Breath sounds equal bilaterally. No accessory muscle use. GASTROINTESTINAL: Abdomen soft, non-tender, nondistended. Morbid obesity. MUSCULOSKELETAL: No cyanosis, or edema. Left AKA. BACK: Nontender without obvious deformity. No CVA tenderness. Procedures None. A/P Problem List: (1) UTI (urinary tract infection) ICD Code: N39.0 Status: Acute (2) Chronic pain ICD Code: G89.29 Status: Chronic (3) Type 2 diabetes mellitus ICD Code: E11.9 Status: Chronic (4) Morbidly obese ICD Code: E66.01 Status: Chronic (5) Depression ICD Code: F32.9 Status: Chronic (6) Pressure ulcer ICD Code: L89.90 Status: Chronic (7) Sleep apnea ICD Code: G47.30 Status: Chronic (8) Hypothyroidism ICD Code: E03.9 Status: Chronic Assessment and Plan 25-year-old male patient with a medical history significant for paraplegia, neurogenic bladder, hypertension, chronic recurrent DVT, chronic pain, sleep apnea, CHF who was brought to the ED yesterday under Felipe act due to threatening staff at his nursing facility. UTI: UA significant for large leukocyte esterase. Dr. Meraz urology was consulted to assist with placement of a indwelling Kyle. - S/p Levaquin 500 mg Qday for a total of 7 days. End date 11/22/2016. - Requested RN to page Dr. Meraz on 11/21/2016 to see if anything can be done with regarding urinary leakage from the catheter. - Discussed with Dr. Meraz. Probable Cystoscopy on 11/25/2016. Diabetes: Advised patient to control sugar intake from candy and soft drinks ( although patient has liter bottle of Mountain Dew in the room). - Monitor Accu-Cheks, Continue sliding scale insulin. - Increase Levemir 35 units BID. Continue Aspart 6 units TIDAC. - Blood glucose has been high. If not well controlled, we will have to change diet back to Diabetic diet (2200 tom). Chronic pain. Home medications baclofen, morphine, Dilaudid 1mg IV for breakthrough pain. - Patient does not appear to be in pain. At this point, we will refrain from increasing IV Dilaudid. - He is on Xanax 2mg Q6hrs PRN, Baclofen 20mg Q6hrs PRN, Morphine 130mg PO Q8hrs, Trazodone 200mg QHS. Morbid obesity: Outpatient general surgery referral needed for possible surgical interventions. Chronic pressure ulcers: Wound care was consulted. Discussed with nurse. Documented on admission. Sleep apnea, CPAP at night Anxiety and depression: Was evaluated by psych in the ER, Felipe acted lifted, did not meet inpatient psychiatric and admission criteria. -Continue his outpatient psychiatric care upon discharge. -Continue Home meds trazodone, Wellbutrin. -Will consider switching Wellbutrin to Lexapro or perhaps Zoloft. Hyperlipidemia: Continue Lipitor Hypothyroidism: Continue levothyroxine Substance use: tox screen on admission significant for opiates, benzos, cannabinoids Full code. Xarelto. Problem Qualifiers (1) Morbidly obese: Qualified Code: E66.01 - Morbid obesity, unspecified obesity type (2) Pressure ulcer: Greta Thurston DO Nov 24, 2016 15:07 Greta Thurston DO Nov 24, 2016 3:07 pm
[2016-11-24 17:14] VITALS: BP 104/59; PULSE 67; RESP 16; TEMP 96.4; O2SAT 99
[2016-11-24 20:00] VITALS: BP 95/44; PULSE 66; RESP 20; TEMP 98.2; O2SAT 94
[2016-11-24] MEDS: RIVAROXABAN 20 MG TAB PO SCH (22:34)
[2016-11-24] MEDS: buPROPion HCL 100 MG SUSTAINED RELEASE TAB PO SCH (22:34)
[2016-11-24] MEDS: ZOLPIDEM TARTRATE 10 MG TAB PO SCH (22:34)
[2016-11-24] MEDS: TOLTERODINE TARTRATE 2 MG CAP LA PO SCH (22:34)
[2016-11-24] MEDS: traZODone HCL 100 MG TAB PO SCH (22:35)
[2016-11-25] VITALS: BP 126/61; PULSE 65; RESP 20; TEMP 97.9; O2SAT 97
[2016-11-25] MEDS: MORPHINE SULFATE 30 MG CONTROLLED RELEASE TAB PO SCH ×3 (02:00→18:00)
[2016-11-25] MEDS: MORPHINE SULFATE 100 MG CONTROLLED RELEASE TAB PO SCH ×3 (02:00→18:15)
[2016-11-25] MEDS: HYDROmorphone HCL PF 1 MG/ML VIAL IV PUSH PRN (03:40)
[2016-11-25 04:00] VITALS: BP 136/73; PULSE 74; RESP 20; TEMP 98; O2SAT 98
[2016-11-25] MEDS: LEVOTHYROXINE SODIUM 50 MCG TAB PO SCH (05:52)
[2016-11-25] MEDS: ALPRAZolam 1 MG TAB PO PRN (05:52)
[2016-11-25] MEDS: INSULIN ASPART SUPPLEMENTAL SCALE SQ SCH ×3 (07:00→21:00)
[2016-11-25] MEDS: INSULIN ASPART 1,000 UNITS/10 ML VIAL SQ SCH ×4 (07:17→17:00)
[2016-11-25 08:00] VITALS: BP 127/66; PULSE 75; RESP 18; TEMP 97.9; O2SAT 98
[2016-11-25] MEDS ORDERED: METOPROLOL TARTRATE 25 MG TAB PO PRN (08:30)
[2016-11-25] MEDS ORDERED: SODIUM CHLORID 0.9% 500 ML IV PRN (08:30)
[2016-11-25] MEDS ORDERED: POVIDONE IODINE 5% (ANTISEPSIS KIT) 4 APPLICATIONS EACH NARE PRN (08:30)
[2016-11-25] MEDS ORDERED: LACTATED RINGER'S 1000 ML IV PRN (08:30)
[2016-11-25] MEDS ORDERED: CHLORHEXIDINE GLUCONATE 2 % 1 PACK (2 CLOTHS) TOPICAL PRN (08:30)
[2016-11-25] MEDS ORDERED: INSULIN HUMAN REGULAR 1,000 UNITS/10 ML VIAL SQ PRN (08:30)
[2016-11-25] MEDS: SIMETHICONE 80 MG CHEWABLE TAB CHEW PRN (09:00)
[2016-11-25] MEDS: SODIUM CHLORIDE 0.9% FLUSH 10 ML FLUSH IV FLUSH SCH ×2 (09:00→21:00)
[2016-11-25] MEDS: INSULIN DETEMIR 100 UNITS/ML VIAL SQ SCH ×2 (09:00→21:00)
--- NOTE | 2016-11-25 10:25 | HHI.PR ---
Subjective Remarks patient scheduled for cystoscopy today at 11 am Objective Vitals Vital Signs Date Time Temp Pulse Resp B/P Pulse Ox O2 Delivery O2 Flow Rate FiO2 11/25/16 08:00 97.9 75 18 127/66 98 11/25/16 04:00 98.0 74 20 136/73 98 11/25/16 00:00 97.9 65 20 126/61 97 11/24/16 20:00 98.2 66 20 95/44 94 11/24/16 17:14 96.4 67 16 104/59 99 11/24/16 11:30 97.4 76 18 141/68 93 I/O 11/24/16 11/24/16 11/24/16 11/25/16 11/25/16 11/25/16 07:00 15:00 23:00 07:00 15:00 23:00 Intake Total 400 ml Output Total 3500 ml 2700 ml 2800 ml 1800 ml Balance -3500 ml -2700 ml -2400 ml -1800 ml Intake Oral 400 ml Output Urine Total 3500 ml 2700 ml 2800 ml 1800 ml # Bowel Movements 0 0 Result Diagram: 11/24/16 1040 Objective Remarks awake and alert, oriented x 3 lungs- decreased breath sounds, no rales or wheezes abdomen flabby, soft kyle catheter in place- draining grossly clear urine Urinary Catheter: Yes Assessment to: Continue Kyle insert reason: Prolonged Immobilization A/P Problem List: (1) UTI (urinary tract infection) ICD Code: N39.0 Status: Acute (2) Chronic pain ICD Code: G89.29 Status: Chronic (3) Type 2 diabetes mellitus ICD Code: E11.9 Status: Chronic (4) Morbidly obese ICD Code: E66.01 Status: Chronic (5) Depression ICD Code: F32.9 Status: Chronic (6) Pressure ulcer ICD Code: L89.90 Status: Chronic (7) Sleep apnea ICD Code: G47.30 Status: Chronic (8) Hypothyroidism ICD Code: E03.9 Status: Chronic Assessment and Plan 25-year-old male patient with a medical history significant for paraplegia, neurogenic bladder, hypertension, chronic recurrent DVT, chronic pain, sleep apnea, CHF who was brought to the ED yesterday under Felipe act due to threatening staff at his nursing facility. UTI: UA significant for large leukocyte esterase. - S/p Levaquin 500 mg Qday for a total of 7 days. End date 11/22/2016. - for Cystoscopy today- Dr. Meraz ff- will be done under local anesthesia Diabetes: Advised patient to control sugar intake from candy and soft drinks ( although patient has liter bottle of Mountain Dew in the room). - Monitor Accu-Cheks, Continue sliding scale insulin. - Increase Levemir 35 units BID. Continue Aspart 6 units TIDAC. - Blood glucose has been high. If not well controlled, we will have to change diet back to Diabetic diet (2200 tom). - non compliant Chronic pain. Home medications baclofen, morphine, Dilaudid 1mg IV for breakthrough pain. - Patient does not appear to be in pain. At this point, we will refrain from increasing IV Dilaudid. - He is on Xanax 2mg Q6hrs PRN, Baclofen 20mg Q6hrs PRN, Morphine 130mg PO Q8hrs, Trazodone 200mg QHS. Morbid obesity: Outpatient general surgery referral needed for possible surgical interventions. Chronic pressure ulcers: Wound care was consulted. Discussed with nurse. Documented on admission. Sleep apnea, CPAP at night Anxiety and depression: Was evaluated by psych in the ER, Felipe acted lifted, did not meet inpatient psychiatric and admission criteria. -Continue his outpatient psychiatric care upon discharge. -Continue Home meds trazodone, Wellbutrin. Hyperlipidemia: Continue Lipitor Hypothyroidism: Continue levothyroxine Substance use: tox screen on admission significant for opiates, benzos, cannabinoids Chronic pain- on pain meds- continue pain regimen- Morphine and Roxicodone Full code. on Xarelto. D/w staff nurse- Art to inform Urology about patient being on Xarelto- Problem Qualifiers (1) Morbidly obese: Qualified Code: E66.01 - Morbid obesity, unspecified obesity type (2) Pressure ulcer: Dangelo Song MD Nov 25, 2016 10:25
[2016-11-25] MEDS: FAMOTIDINE 20 MG TAB PO SCH (10:45)
[2016-11-25] MEDS: ASCORBIC ACID 500 MG TAB PO SCH ×2 (10:45→21:00)
[2016-11-25] MEDS: FUROSEMIDE 40 MG TAB PO SCH ×2 (10:46→21:00)
[2016-11-25] MEDS: ATORVASTATIN 40 MG TAB PO SCH (10:47)
[2016-11-25] MEDS: buPROPion HCL 100 MG SUSTAINED RELEASE TAB PO SCH ×2 (10:49→21:00)
[2016-11-25 12:00] VITALS: BP 120/61; PULSE 74; RESP 18; TEMP 98.1; O2SAT 99
--- NOTE | 2016-11-25 13:55 | PD.OP ---
Operative Report Date of Surgery: Nov 25, 2016 Preoperative Diagnosis: (1) Neurogenic bladder Postoperative Diagnosis: (1) Neurogenic bladder Procedure: Flexible cystoscopy and placement of Councill catheter Anesthesia: MAC Surgeon: Claude Meraz Papier Mache' Molder(s): None Operation and Findings: Indication for procedure: Case of a 25-year-old morbidly obese male with neurogenic bladder dysfunction who presents now for cystoscopy and replacement of Montelongo catheter. Operative procedure in detail: Patient was brought to the cystoscopy suite and left in the supine position on the stretcher. No anesthesia was administered however he was monitored throughout the procedure by the anesthesia service. He was prepped and draped in normal sterile fashion. After appropriate timeout was undertaken I proceeded with passing a sensor 0.035 wire through the patient' s previously past Councill catheter until a small amount of resistance was met. The Councill catheter was then removed over the wire and discarded. The flexible cystoscope was then advanced over this wire and carefully advanced under direct vision until the urinary bladder was emptied. With the tip of this cystoscope confirmed within the bladder the wire was further advanced until it looped within the urinary bladder and the flexible cystoscope was withdrawn. An 18 [place] 10 cc Councill catheter was next fully advanced over the wire and the wire was withdrawn. A total of 20 cc sterile water was instilled into the balloon. The catheter was then pulled back several centimeters until a small amount of resistance was met. The bladder was then irrigated with a Kee syringe and irrigated well. The [place] Montelongo was next connected to gravity drainage. The patient tolerated the procedure without complications and will be transferred back to his room. Claude Meraz MD Nov 25, 2016 13:55
[2016-11-25 16:50] VITALS: BP 109/56; PULSE 78; RESP 18; TEMP 97.1; O2SAT 97
[2016-11-25] MEDS: POVIDONE IODINE 10% OINT 30 GM TUBE TOPICAL SCH (18:20)
[2016-11-25] MEDS: COLLAGENASE OINT 30 GM TUBE TOPICAL SCH (18:20)
[2016-11-25 20:00] VITALS: BP 119/56; PULSE 80; RESP 19; TEMP 95.7; O2SAT 99
[2016-11-25] MEDS: DOCUSATE SODIUM 100 MG CAP PO SCH (21:00)
[2016-11-25] MEDS: ZOLPIDEM TARTRATE 10 MG TAB PO SCH (21:00)
[2016-11-25] MEDS: NYSTATIN 100,000 U/GM PWD 15 GM BTL TOPICAL SCH (21:00)
[2016-11-25] MEDS: traZODone HCL 100 MG TAB PO SCH (21:00)
[2016-11-25] MEDS: RIVAROXABAN 20 MG TAB PO SCH (21:00)
[2016-11-25] MEDS: TOLTERODINE TARTRATE 2 MG CAP LA PO SCH (21:00)
[2016-11-26] MEDS: MORPHINE SULFATE 30 MG CONTROLLED RELEASE TAB PO SCH ×3 (02:00→17:03)
[2016-11-26] MEDS: MORPHINE SULFATE 100 MG CONTROLLED RELEASE TAB PO SCH ×3 (02:00→17:03)
[2016-11-26] MEDS: LEVOTHYROXINE SODIUM 50 MCG TAB PO SCH (06:00)
[2016-11-26] MEDS: INSULIN ASPART SUPPLEMENTAL SCALE SQ SCH ×4 (06:19→21:00)
[2016-11-26] MEDS: COLLAGENASE OINT 30 GM TUBE TOPICAL SCH (09:00)
[2016-11-26] MEDS: POVIDONE IODINE 10% OINT 30 GM TUBE TOPICAL SCH (09:00)
[2016-11-26 09:02] VITALS: BP 118/56; PULSE 67; RESP 16; TEMP 98; O2SAT 97
[2016-11-26] MEDS: INSULIN ASPART 1,000 UNITS/10 ML VIAL SQ SCH ×3 (09:22→17:03)
[2016-11-26] MEDS: INSULIN DETEMIR 100 UNITS/ML VIAL SQ SCH ×2 (09:22→21:00)
[2016-11-26] MEDS: ATORVASTATIN 40 MG TAB PO SCH (09:23)
[2016-11-26] MEDS: FAMOTIDINE 20 MG TAB PO SCH (09:23)
[2016-11-26] MEDS: ASCORBIC ACID 500 MG TAB PO SCH ×2 (09:23→21:00)
[2016-11-26] MEDS: buPROPion HCL 100 MG SUSTAINED RELEASE TAB PO SCH ×2 (09:24→21:00)
[2016-11-26] MEDS: DOCUSATE SODIUM 100 MG CAP PO SCH ×2 (09:24→21:00)
[2016-11-26] MEDS: FUROSEMIDE 40 MG TAB PO SCH ×2 (09:24→21:00)
[2016-11-26] MEDS: SODIUM CHLORIDE 0.9% FLUSH 10 ML FLUSH IV FLUSH SCH ×2 (09:25→21:00)
[2016-11-26] MEDS: NYSTATIN 100,000 U/GM PWD 15 GM BTL TOPICAL SCH ×2 (09:26→21:00)
[2016-11-26] MEDS: HYDROmorphone HCL PF 1 MG/ML VIAL IV PUSH PRN ×2 (09:55→14:20)
[2016-11-26 12:40] VITALS: BP 119/58; PULSE 84; RESP 16; TEMP 98.1; O2SAT 94
[2016-11-26] MEDS: CLOTRIMAZOLE 1% CREAM 15 GM TOPICAL PRN (13:28)
[2016-11-26] MEDS: ALPRAZolam 1 MG TAB PO PRN (14:19)
[2016-11-26 16:33] VITALS: BP 103/56; PULSE 82; RESP 16; TEMP 97; O2SAT 94
--- NOTE | 2016-11-26 17:19 | HHI.PR ---
Subjective Remarks cooperative on exam sleeps with Bi PAP was up on chair today for at least 8 hours Objective Vitals Vital Signs Date Time Temp Pulse Resp B/P Pulse Ox O2 Delivery O2 Flow Rate FiO2 11/26/16 16:33 97.0 82 16 103/56 94 11/26/16 12:40 98.1 84 16 119/58 94 11/26/16 09:02 98.0 67 16 118/56 97 11/25/16 20:00 95.7 80 19 119/56 99 I/O 11/25/16 11/25/16 11/25/16 11/26/16 11/26/16 11/26/16 07:00 15:00 23:00 07:00 15:00 23:00 Intake Total 400 ml 720 ml Output Total 2800 ml 3000 ml 1750 ml 2400 ml Balance -2400 ml -3000 ml -1030 ml -2400 ml Intake Oral 400 ml 720 ml Output Urine Total 2800 ml 3000 ml 1750 ml 2400 ml # Bowel Movements 0 Result Diagram: 11/24/16 1040 Objective Remarks awake and alert, oriented x 3 lungs- decreased breath sounds, no rales or wheezes abdomen flabby, soft kyle catheter in place- draining grossly clear urine stage 2-3 ulcer- edges clean Procedures 11/25- S/P felxible cystoscopy with replacement of kyle catheter (Councill catheter) Urinary Catheter: Yes Assessment to: Continue Kyle insert reason: Prolonged Immobilization Date of Insertion: Nov 25, 2016 A/P Problem List: (1) UTI (urinary tract infection) ICD Code: N39.0 Status: Acute (2) Chronic pain ICD Code: G89.29 Status: Chronic (3) Type 2 diabetes mellitus ICD Code: E11.9 Status: Chronic (4) Morbidly obese ICD Code: E66.01 Status: Chronic (5) Depression ICD Code: F32.9 Status: Chronic (6) Pressure ulcer ICD Code: L89.90 Status: Chronic (7) Sleep apnea ICD Code: G47.30 Status: Chronic (8) Hypothyroidism ICD Code: E03.9 Status: Chronic Assessment and Plan 25-year-old male patient with a medical history significant for paraplegia, neurogenic bladder, hypertension, chronic recurrent DVT, chronic pain, sleep apnea, CHF who was brought to the ED yesterday under Felipe act due to threatening staff at his nursing facility. S/P Tx for UTI - S/p Levaquin 500 mg Qday for a total of 7 days- 11/22/2016. S/P replacement of kyle catheter by Dr. Meraz- 11/25 - Diabetes: Advised patient to control sugar intake from candy and soft drinks ( although patient has liter bottle of Mountain Dew in the room). - Monitor Accu-Cheks, Continue sliding scale insulin. - Increase Levemir 35 units BID. Continue Aspart 6 units TIDAC. - Blood glucose has been high. If not well controlled, we will have to change diet back to Diabetic diet (2200 tom). - non compliant Chronic pain. Home medications baclofen, morphine, Dilaudid 1mg IV for breakthrough pain. - Patient does not appear to be in pain. At this point, we will refrain from increasing IV Dilaudid. - He is on Xanax 2mg Q6hrs PRN, Baclofen 20mg Q6hrs PRN, Morphine 130mg PO Q8hrs, Trazodone 200mg QHS. Morbid obesity: Outpatient general surgery referral needed for possible surgical interventions. Chronic pressure ulcers: Wound care was consulted. Discussed with nurse. Documented on admission. Sleep apnea, CPAP at night Anxiety and depression: Was evaluated by psych in the ER, Felipe acted lifted, did not meet inpatient psychiatric and admission criteria. -Continue his outpatient psychiatric care upon discharge. -Continue Home meds trazodone, Wellbutrin. Hyperlipidemia: Continue Lipitor Hypothyroidism: Continue levothyroxine Chronic pain- continue current pain regimen- Morphine + Roxicodone. Prn IV dilaudid Substance use: tox screen on admission significant for opiates, benzos, cannabinoids Full code. on Xarelto. Problem Qualifiers (1) Morbidly obese: Qualified Code: E66.01 - Morbid obesity, unspecified obesity type (2) Pressure ulcer: Dangelo Song MD Nov 26, 2016 17:19
[2016-11-26 18:20] VITALS: O2SAT 94
[2016-11-26] MEDS: TOLTERODINE TARTRATE 2 MG CAP LA PO SCH (21:00)
[2016-11-26] MEDS: RIVAROXABAN 20 MG TAB PO SCH (21:00)
[2016-11-26] MEDS: traZODone HCL 100 MG TAB PO SCH (21:00)
[2016-11-26] MEDS: ZOLPIDEM TARTRATE 10 MG TAB PO SCH (21:00)
[2016-11-27] MEDS: MORPHINE SULFATE 30 MG CONTROLLED RELEASE TAB PO SCH ×3 (01:28→18:40)
[2016-11-27] MEDS: MORPHINE SULFATE 100 MG CONTROLLED RELEASE TAB PO SCH ×3 (01:28→18:39)
[2016-11-27] MEDS: INSULIN ASPART SUPPLEMENTAL SCALE SQ SCH ×4 (05:45→21:00)
[2016-11-27] MEDS: LEVOTHYROXINE SODIUM 50 MCG TAB PO SCH (05:45)
[2016-11-27] MEDS: DOCUSATE SODIUM 100 MG CAP PO SCH ×2 (08:35→21:00)
[2016-11-27] MEDS: BACLOFEN 20 MG TAB PO PRN ×3 (08:36→23:37)
[2016-11-27] MEDS: buPROPion HCL 100 MG SUSTAINED RELEASE TAB PO SCH ×2 (08:36→21:21)
[2016-11-27] MEDS: ASCORBIC ACID 500 MG TAB PO SCH ×2 (08:36→21:21)
[2016-11-27] MEDS: ATORVASTATIN 40 MG TAB PO SCH (08:36)
[2016-11-27] MEDS: ALPRAZolam 1 MG TAB PO PRN ×3 (08:36→23:37)
[2016-11-27] MEDS: FAMOTIDINE 20 MG TAB PO SCH (08:36)
[2016-11-27] MEDS: INSULIN DETEMIR 100 UNITS/ML VIAL SQ SCH ×2 (08:37→21:20)
[2016-11-27] MEDS: FUROSEMIDE 40 MG TAB PO SCH ×2 (08:37→21:00)
[2016-11-27] MEDS: SODIUM CHLORIDE 0.9% FLUSH 10 ML FLUSH IV FLUSH SCH ×2 (08:37→22:17)
[2016-11-27] MEDS: NYSTATIN 100,000 U/GM PWD 15 GM BTL TOPICAL SCH ×2 (08:39→21:00)
[2016-11-27] MEDS: POVIDONE IODINE 10% OINT 30 GM TUBE TOPICAL SCH (08:39)
[2016-11-27] MEDS: COLLAGENASE OINT 30 GM TUBE TOPICAL SCH (08:39)
[2016-11-27] MEDS: HYDROmorphone HCL PF 1 MG/ML VIAL IV PUSH PRN ×4 (08:41→22:16)
[2016-11-27] MEDS: INSULIN ASPART 1,000 UNITS/10 ML VIAL SQ SCH ×3 (08:48→17:34)
[2016-11-27 09:39] VITALS: BP 127/69; PULSE 89; RESP 16; TEMP 98.1; O2SAT 96
--- NOTE | 2016-11-27 10:47 | HHI.PR ---
Subjective Remarks reviewed with him- refusing some medications- d/w specifically about Xarelto d/w about pain meds occasionally feels leaking - kyle Objective Vitals Vital Signs Date Time Temp Pulse Resp B/P Pulse Ox O2 Delivery O2 Flow Rate FiO2 11/27/16 09:39 98.1 89 16 127/69 96 11/26/16 18:20 21.0 11/26/16 16:33 97.0 82 16 103/56 94 11/26/16 12:40 98.1 84 16 119/58 94 I/O 11/26/16 11/26/16 11/26/16 11/27/16 11/27/16 11/27/16 07:00 15:00 23:00 07:00 15:00 23:00 Intake Total 720 ml 0 ml Output Total 1750 ml 3600 ml 200 ml Balance -1030 ml -3600 ml -200 ml Intake Oral 720 ml 0 ml Output Urine Total 1750 ml 3600 ml 200 ml # Bowel Movements 0 0 Result Diagram: 11/24/16 1040 Objective Remarks awake and alert, oriented x 3 lungs- decreased breath sounds, no rales or wheezes abdomen flabby, soft kyle catheter in place- draining grossly clear urine stage 2-3 ulcer- edges clean Procedures 11/25- S/P flexible cystoscopy with replacement of kyle catheter (Councill catheter) Date of Insertion: Nov 25, 2016 A/P Problem List: (1) UTI (urinary tract infection) ICD Code: N39.0 Status: Acute (2) Chronic pain ICD Code: G89.29 Status: Chronic (3) Type 2 diabetes mellitus ICD Code: E11.9 Status: Chronic (4) Morbidly obese ICD Code: E66.01 Status: Chronic (5) Depression ICD Code: F32.9 Status: Chronic (6) Pressure ulcer ICD Code: L89.90 Status: Chronic (7) Sleep apnea ICD Code: G47.30 Status: Chronic (8) Hypothyroidism ICD Code: E03.9 Status: Chronic Assessment and Plan 25-year-old male patient with a medical history significant for paraplegia, neurogenic bladder, hypertension, chronic recurrent DVT, chronic pain, sleep apnea, CHF who was brought to the ED yesterday under Felipe act due to threatening staff at his nursing facility. S/P Tx for UTI - S/p Levaquin 500 mg Qday for a total of 7 days- 11/22/2016. S/P replacement of kyle catheter by Dr. Meraz- 11/25 - Diabetes: Advised patient to control sugar intake from candy and soft drinks ( although patient has liter bottle of Mountain Dew in the room). - Monitor Accu-Cheks, Continue sliding scale insulin. - Increase Levemir 35 units BID. Continue Aspart 6 units TIDAC. - Blood glucose has been high. If not well controlled, we will have to change diet back to Diabetic diet (2200 tom). - non compliant Chronic pain. Home medications baclofen, morphine, Dilaudid 1mg IV for breakthrough pain. - Patient does not appear to be in pain. At this point, we will refrain from increasing IV Dilaudid. - He is on Xanax 2mg Q6hrs PRN, Baclofen 20mg Q6hrs PRN, Morphine 130mg PO Q8hrs, Trazodone 200mg QHS. Morbid obesity: Outpatient general surgery referral needed for possible surgical interventions. Chronic pressure ulcers: Wound care was consulted. Discussed with nurse. Documented on admission. Sleep apnea, CPAP at night Anxiety and depression: Was evaluated by psych in the ER, Felipe acted lifted, did not meet inpatient psychiatric and admission criteria. -Continue his outpatient psychiatric care upon discharge. -Continue Home meds trazodone, Wellbutrin. Hyperlipidemia: Continue Lipitor Hypothyroidism: Continue levothyroxine Chronic pain- continue pain regimen- po Morphine and roxicodone. Prn IV dilaudid Substance use: tox screen on admission significant for opiates, benzos, cannabinoids Full code. on Xarelto.- advised compliance- Problem Qualifiers (1) Morbidly obese: Qualified Code: E66.01 - Morbid obesity, unspecified obesity type (2) Pressure ulcer: Dangelo Song MD Nov 27, 2016 10:47
[2016-11-27] MEDS: SODIUM CHLORIDE 0.9% FLUSH 10 ML FLUSH IV FLUSH PRN ×2 (13:46→18:09)
[2016-11-27 13:57] VITALS: BP 131/68; PULSE 102; RESP 16; TEMP 98.7; O2SAT 97
[2016-11-27 17:41] VITALS: BP 127/63; PULSE 99; RESP 16; TEMP 98.1; O2SAT 94
[2016-11-27 20:00] VITALS: BP 130/69; PULSE 95; RESP 20; TEMP 99; O2SAT 95
[2016-11-27] MEDS: TOLTERODINE TARTRATE 2 MG CAP LA PO SCH (21:00)
[2016-11-27] MEDS: RIVAROXABAN 20 MG TAB PO SCH (21:21)
[2016-11-27] MEDS: ZOLPIDEM TARTRATE 10 MG TAB PO SCH (22:17)
[2016-11-27] MEDS: traZODone HCL 100 MG TAB PO SCH (22:17)
[2016-11-27] MEDS: SIMETHICONE 80 MG CHEWABLE TAB CHEW PRN (23:37)
[2016-11-28 01:00] VITALS: BP 123/74; PULSE 93; RESP 20; TEMP 95.8; O2SAT 97
[2016-11-28] MEDS: MORPHINE SULFATE 100 MG CONTROLLED RELEASE TAB PO SCH ×3 (01:46→16:53)
[2016-11-28] MEDS: MORPHINE SULFATE 30 MG CONTROLLED RELEASE TAB PO SCH ×3 (01:46→16:53)
[2016-11-28] MEDS: HYDROmorphone HCL PF 1 MG/ML VIAL IV PUSH PRN ×5 (02:29→21:22)
[2016-11-28] MEDS: BACLOFEN 20 MG TAB PO PRN ×3 (06:02→20:21)
[2016-11-28] MEDS: LEVOTHYROXINE SODIUM 50 MCG TAB PO SCH (06:02)
[2016-11-28] MEDS: ALPRAZolam 1 MG TAB PO PRN ×2 (06:02→12:00)
[2016-11-28] MEDS: INSULIN ASPART SUPPLEMENTAL SCALE SQ SCH ×4 (07:00→21:22)
[2016-11-28] MEDS: SODIUM CHLORIDE 0.9% FLUSH 10 ML FLUSH IV FLUSH PRN (07:09)
[2016-11-28 08:00] VITALS: BP 116/55; PULSE 78; RESP 20; TEMP 96.6; O2SAT 97
[2016-11-28] MEDS: INSULIN ASPART 1,000 UNITS/10 ML VIAL SQ SCH ×3 (08:33→16:52)
[2016-11-28] MEDS: DOCUSATE SODIUM 100 MG CAP PO SCH ×2 (08:34→21:21)
[2016-11-28] MEDS: FAMOTIDINE 20 MG TAB PO SCH (08:34)
[2016-11-28] MEDS: INSULIN DETEMIR 100 UNITS/ML VIAL SQ SCH ×2 (08:34→21:22)
[2016-11-28] MEDS: SODIUM CHLORIDE 0.9% FLUSH 10 ML FLUSH IV FLUSH SCH ×2 (08:34→21:20)
[2016-11-28] MEDS: ASCORBIC ACID 500 MG TAB PO SCH ×2 (08:34→21:21)
[2016-11-28] MEDS: buPROPion HCL 100 MG SUSTAINED RELEASE TAB PO SCH ×2 (08:34→21:21)
[2016-11-28] MEDS: ATORVASTATIN 40 MG TAB PO SCH (08:34)
[2016-11-28] MEDS: FUROSEMIDE 40 MG TAB PO SCH ×2 (08:34→21:00)
[2016-11-28] MEDS: POVIDONE IODINE 10% OINT 30 GM TUBE TOPICAL SCH (08:34)
[2016-11-28] MEDS: COLLAGENASE OINT 30 GM TUBE TOPICAL SCH (08:35)
[2016-11-28] MEDS: NYSTATIN 100,000 U/GM PWD 15 GM BTL TOPICAL SCH ×2 (08:35→21:20)
--- NOTE | 2016-11-28 09:20 | HHI.PR ---
Subjective Remarks awake and alert discussed about his blood sugars his diet and diabetic regimen states discomfort and discussed about pain meds Objective Vitals Vital Signs Date Time Temp Pulse Resp B/P Pulse Ox O2 Delivery O2 Flow Rate FiO2 11/28/16 01:00 95.8 93 20 123/74 97 11/27/16 20:00 99.0 95 20 130/69 95 11/27/16 17:41 98.1 99 16 127/63 94 11/27/16 13:57 98.7 102 16 131/68 97 11/27/16 09:39 98.1 89 16 127/69 96 I/O 11/27/16 11/27/16 11/27/16 11/28/16 11/28/16 11/28/16 07:00 15:00 23:00 07:00 15:00 23:00 Intake Total 0 ml 800 ml 940 ml 360 ml Output Total 200 ml 3200 ml 1500 ml Balance -200 ml 800 ml -2260 ml -1140 ml Intake Oral 0 ml 800 ml 940 ml 360 ml Output Urine Total 200 ml 3200 ml 1500 ml # Bowel Movements 0 0 0 Result Diagram: 11/24/16 1040 Objective Remarks awake and alert, oriented x 3 lungs- decreased breath sounds, no rales or wheezes abdomen flabby, soft kyle catheter in place- draining grossly clear urine stage 2-3 decubitus ulcer- edges clean- 11/27 exam Procedures 11/25- S/P flexible cystoscopy with replacement of kyle catheter (Councill catheter) Urinary Catheter: Yes Kyle insert reason: Prolonged Immobilization Date of Insertion: Nov 25, 2016 A/P Problem List: (1) UTI (urinary tract infection) ICD Code: N39.0 Status: Acute (2) Chronic pain ICD Code: G89.29 Status: Chronic (3) Type 2 diabetes mellitus ICD Code: E11.9 Status: Chronic (4) Morbidly obese ICD Code: E66.01 Status: Chronic (5) Depression ICD Code: F32.9 Status: Chronic (6) Pressure ulcer ICD Code: L89.90 Status: Chronic (7) Sleep apnea ICD Code: G47.30 Status: Chronic (8) Hypothyroidism ICD Code: E03.9 Status: Chronic Assessment and Plan 25-year-old male patient with a medical history significant for paraplegia, neurogenic bladder, hypertension, chronic recurrent DVT, chronic pain, sleep apnea, CHF who was brought to the ED yesterday under Felipe act due to threatening staff at his nursing facility. Neurogenic Bladder S/P Tx for UTI - S/p Levaquin 500 mg total of 7 days- 11/22/2016. S/P replacement of kyle catheter by Dr. Meraz- 11/25 - Diabetes: d/w him Advised patient to control sugar intake - Monitor Accu-Cheks, Continue sliding scale insulin.- some readings in low 200s - Increased Levemir 35 units BID. Continue Aspart 6 units TIDAC. - continue to monitor and adjust - Blood glucose has been high. If not well controlled, we will have to change diet back to Diabetic diet (2200 tom). - non compliant Chronic pain. Home medications baclofen, morphine, Dilaudid 1mg IV for breakthrough pain. - Patient does not appear to be in pain. At this point, we will refrain from increasing IV Dilaudid. - He is on Xanax 2mg Q6hrs PRN, Baclofen 20mg Q6hrs PRN, Morphine 130mg PO Q8hrs, Trazodone 200mg QHS. Morbid obesity: Outpatient general surgery referral needed for possible surgical interventions. Chronic pressure ulcers: Wound care team ff. Documented on admission. Sleep apnea, CPAP at night Anxiety and depression: no suicidal ideations- concern is more about of pain medications Was evaluated by psych in the ER, Destinee acted lifted, did not meet inpatient psychiatric and admission criteria. -Continue his outpatient psychiatric care upon discharge. -Continue Home meds trazodone, Wellbutrin. Hyperlipidemia: Continue Lipitor Hypothyroidism: Continue levothyroxine chronic pain - on chronic pain meds Substance use: tox screen on admission significant for opiates, benzos, cannabinoids Full code. on Xarelto.- Problem Qualifiers (1) Morbidly obese: Qualified Code: E66.01 - Morbid obesity, unspecified obesity type (2) Pressure ulcer: Dangelo Song MD Nov 28, 2016 09:20
[2016-11-28] MEDS: OXYBUTYNIN CHLORIDE 5 MG TAB PO SCH ×2 (15:41→21:21)
[2016-11-28 16:00] VITALS: BP 139/73; PULSE 101; RESP 20; TEMP 96.8; O2SAT 96
[2016-11-28 20:00] VITALS: TEMP 101.7; TEMP 99.7
[2016-11-28 20:14] VITALS: O2SAT 96
[2016-11-28] MEDS: RIVAROXABAN 20 MG TAB PO SCH (21:20)
[2016-11-28] MEDS: TOLTERODINE TARTRATE 2 MG CAP LA PO SCH (21:21)
[2016-11-28] MEDS: ONDANSETRON HCL 4 MG/2 ML VIAL IV PUSH PRN (21:21)
[2016-11-29] VITALS (7 sets, daily range): BP systolic 92–129; BP diastolic 50–60; PULSE 101–125; RESP 20–28; TEMP 98.2–103; O2SAT 91–96
[2016-11-29] MEDS: ACETAMINOPHEN 325 MG TAB PO PRN ×4 (00:44→20:35)
[2016-11-29] MEDS: ALPRAZolam 1 MG TAB PO PRN (00:44)
[2016-11-29] MEDS: ZOLPIDEM TARTRATE 10 MG TAB PO SCH ×2 (00:44→20:34)
[2016-11-29] MEDS: traZODone HCL 100 MG TAB PO SCH ×2 (00:44→20:35)
[2016-11-29] MEDS: HYDROmorphone HCL PF 1 MG/ML VIAL IV PUSH PRN ×3 (02:07→10:31)
[2016-11-29] MEDS: MORPHINE SULFATE 100 MG CONTROLLED RELEASE TAB PO SCH ×3 (02:09→18:00)
[2016-11-29] MEDS: MORPHINE SULFATE 30 MG CONTROLLED RELEASE TAB PO SCH ×3 (02:11→18:00)
[2016-11-29] MEDS: LEVOTHYROXINE SODIUM 50 MCG TAB PO SCH (06:00)
[2016-11-29] MEDS: INSULIN ASPART SUPPLEMENTAL SCALE SQ SCH ×4 (06:01→21:00)
[2016-11-29] MEDS: INSULIN ASPART 1,000 UNITS/10 ML VIAL SQ SCH ×3 (08:00→17:00)
[2016-11-29] MEDS: COLLAGENASE OINT 30 GM TUBE TOPICAL SCH (09:00)
[2016-11-29] MEDS: FUROSEMIDE 40 MG TAB PO SCH ×3 (09:00→21:00)
[2016-11-29] MEDS: NYSTATIN 100,000 U/GM PWD 15 GM BTL TOPICAL SCH ×2 (09:00→21:00)
[2016-11-29] MEDS: INSULIN DETEMIR 100 UNITS/ML VIAL SQ SCH ×2 (09:00→20:34)
[2016-11-29] MEDS: SODIUM CHLORIDE 0.9% FLUSH 10 ML FLUSH IV FLUSH SCH ×2 (09:00→20:35)
[2016-11-29] MEDS: POVIDONE IODINE 10% OINT 30 GM TUBE TOPICAL SCH (09:00)
[2016-11-29] MEDS: buPROPion HCL 100 MG SUSTAINED RELEASE TAB PO SCH (09:11)
[2016-11-29] MEDS: DOCUSATE SODIUM 100 MG CAP PO SCH ×2 (09:12→20:34)
[2016-11-29] MEDS: ASCORBIC ACID 500 MG TAB PO SCH ×2 (09:12→20:37)
[2016-11-29] MEDS: ATORVASTATIN 40 MG TAB PO SCH (09:13)
[2016-11-29] MEDS: OXYBUTYNIN CHLORIDE 5 MG TAB PO SCH ×2 (09:14→20:36)
[2016-11-29] MEDS: FAMOTIDINE 20 MG TAB PO SCH (09:14)
--- NOTE | 2016-11-29 12:29 | HHI.PR ---
Subjective Remarks d/w pain regimen - complains of generalized pain no diarrhea, no cough, diarrhea T max 101.6 early this am, no nausea or vomiting, no cough kyle draining- blood tinged urine, cloudy Objective Vitals Vital Signs Date Time Temp Pulse Resp B/P Pulse Ox O2 Delivery O2 Flow Rate FiO2 11/29/16 08:00 101.6 125 21 109/52 93 11/29/16 04:00 98.2 101 20 129/60 96 11/29/16 00:00 101.3 110 20 105/55 94 11/28/16 20:14 Full Face Mask 40.0 11/28/16 20:00 101.7 11/28/16 20:00 99.7 11/28/16 16:00 96.8 101 20 139/73 96 I/O 11/28/16 11/28/16 11/28/16 11/29/16 11/29/16 11/29/16 07:00 15:00 23:00 07:00 15:00 23:00 Intake Total 360 ml Output Total 1500 ml 1300 ml 2600 ml Balance -1140 ml -1300 ml -2600 ml Intake Oral 360 ml Output Urine Total 1500 ml 1300 ml 2600 ml # Bowel Movements 0 0 Objective Remarks awake and alert, oriented x 3 HR 120/min T max 101 lungs- decreased breath sounds, no rales or wheezes tachycardic abdomen flabby, soft, good bowel sounds abdominal fold- sagging- skin between folds- dry left gluteal area with 2 open wounds- [address]- both wound edges clean, no active drainage scrotal area - with excoriations from pressure sacral area- intact skin, mild erythema dry - mepilex in place for protection kyle catheter in place- now draining cloudy bloody urine lower extremities- no open wounds Procedures 11/25- S/P flexible cystoscopy with replacement of kyle catheter (Councill catheter) Date of Insertion: Nov 25, 2016 A/P Problem List: (1) UTI (urinary tract infection) ICD Code: N39.0 Status: Acute (2) Chronic pain ICD Code: G89.29 Status: Chronic (3) Type 2 diabetes mellitus ICD Code: E11.9 Status: Chronic (4) Morbidly obese ICD Code: E66.01 Status: Chronic (5) Depression ICD Code: F32.9 Status: Chronic (6) Pressure ulcer ICD Code: L89.90 Status: Chronic (7) Sleep apnea ICD Code: G47.30 Status: Chronic (8) Hypothyroidism ICD Code: E03.9 Status: Chronic Assessment and Plan 25-year-old male patient with a medical history significant for paraplegia, neurogenic bladder, hypertension, chronic recurrent DVT, chronic pain, sleep apnea, CHF who was brought under Felipe act due to threatening staff at his nursing facility. Neurogenic Bladder SEpsis-New fever - fever 101.9, tachycardia source likely UTI source - S/P Tx for UTI - S/p Levaquin 500 mg course 11/22/2016. S/P replacement of kyle catheter by Dr. Meraz- 11/25. On Oxybutynin 5 mg bid check CBC, CMP, UA, C and S, Blood culture x 2 will get Infectious disease consult - Diabetes: Mellitus, insulin requring- needs tighter control- reinforced and encourage - Monitor Accu-Cheks, Continue sliding scale insulin.- some readings in low 200s - Increased Levemir 35 units BID. Continue Aspart 6 units TIDAC. - continue to monitor and adjust - Blood glucose has been high. If not well controlled, we will have to change diet back to Diabetic diet (2200 tom). - non compliant Chronic pain. Home medications baclofen, morphine, Dilaudid 1mg IV for breakthrough pain. - Patient does not appear to be in pain. At this point, we will refrain from increasing IV Dilaudid. - He is on Xanax 2mg Q6hrs PRN, Baclofen 20mg Q6hrs PRN, Morphine 130mg PO Q8hrs, Trazodone 200mg QHS. Morbid obesity: Outpatient general surgery referral needed for possible surgical interventions. Chronic pressure ulcers: Wound care team ff. Documented on admission. Patient turning himself rigorously Sleep apnea, CPAP at night Anxiety and depression: no suicidal ideations- concern is more about of pain medications Was evaluated by psych in the ER, Destinee acted lifted, did not meet inpatient psychiatric and admission criteria. -Continue his outpatient psychiatric care upon discharge. -Continue Home meds trazodone, Wellbutrin. Hyperlipidemia: Continue Lipitor Hypothyroidism: Continue levothyroxine chronic pain - on chronic pain meds- Increase dilaudid t1.5 mg a 4 prn Substance use: tox screen on admission significant for opiates, benzos, cannabinoids Full code. on Xarelto.- 3 pm- high fever, persistently tachycardic- ABG with respiratory alkalosis- suggestive of Early sepsis- UA +++ clumps. Start meropenem 2 gm IV q 8- cover gram negative start Zyvox- 600 mg IV q 8- history of VRE in urine (reviewed old admission sensitivities) hold wellbutrin due to Interaction with Zyvox [place] [facility] [place]G now. CBC/CMP labs pending Problem Qualifiers (1) Morbidly obese: Qualified Code: E66.01 - Morbid obesity, unspecified obesity type (2) Pressure ulcer: Dangelo Song MD Nov 29, 2016 12:28
[2016-11-29 13:23] LABS: BACTERIA, URINE MANY /hpf; BLOOD, URINE LARGE (NEG); COMMENT (UR) CULTURE INDICATED; CULTURE IF INDICATED CULTURE INDICATED; GLUCOSE,URINE NEG (NEG); KETONE, URINE NEG (NEG); NITRITE,URINE NEG (NEG)
[2016-11-29 13:25] LABS: URINE COLOR RED (YELLW/STRAW)
[2016-11-29] MEDS ORDERED: ASP: Documented allergy to Penicillins or Cephalosporins PRN (15:30)
[2016-11-29] MEDS ORDERED: MISCELLANEOUS PHARMACY INFORMATION XX PRN ×2 (15:30)
--- NOTE | 2016-11-29 15:59 | PD.ID.CON ---
History of Present Illness Service ID Consult Requested By Dr Song Reason for Consult sepsis Primary Care Physician No Primary Care Physician Diagnoses: History of Present Illness Known to me 25 yo paraplegic morbidly obese male with h/o long standing decubs sp L AKA and Neurogenic bladder sp Flexible cystoscopy and replacement of Montelongo catheter on 11/[address] Claude Meraz Pt had mixed monique in urine clx on admission and was receiving Levaquine 11/13 thru 11/21 Pt developped fever last night around 3 am today up to 101. 6, hypoxia, tachycardia Last [facility] was wnl on 11/14 His urine was very abnormal with innumerable WBC/RBC/ many bacteria Has a h/o ESBL, VRE 6 mos ago Pt was started on Meropenem, zyvox and is beeing transferred to ICU 09/15 tachycardia and hypoxia Review of Systems ROS Limitations: Uncooperative Past Family Social History Allergies: Coded Allergies: Adhesives (Verified Allergy, Severe, 11/10/16) Azactam (Verified Allergy, Mild, rash, 11/10/16) Mild localized rash. Confirm with patient on January 11, 2016. Clindamycin (Verified Allergy, Mild, rash, 11/10/16) Mild localized rash. Confirm with patient on January 11, 2016. Penicillin (Verified Allergy, Mild, rash, 11/10/16) Mild localized rash. Confirm with patient on January 11, 2016. *MDRO Multi-Drug Resistant Organism (Verified Adverse Reaction, Unknown, ) E. coli ESBL positive (urine) - 07/2012 MRSA (foot- 10/27/15),(blood-12/2015),(ankle-04/16/16); MRSA PCR (nares) positive - 01/10/16; ESBL+Klebsiella Pneumoniae & VRE (urine-05/23/16) MDR Pseudomonas aeruginosa (urine) - 05/23/16 Uncoded Allergies: CEFEPIME (Allergy, Mild, Rash, 01/11/16) Mild localized rash. Confirm with patient on January 11, 2016. Active Ordered Medications Medications where reviewed in EMR Antibiotics Include: Meropenem, zyvox Physical Exam Vital Signs Vital Signs Date Time Temp Pulse Resp B/P Pulse Ox O2 Delivery O2 Flow Rate FiO2 11/29/16 12:00 100.1 119 20 114/54 94 11/29/16 08:00 101.6 125 21 109/52 93 11/29/16 04:00 98.2 101 20 129/60 96 11/29/16 00:00 101.3 110 20 105/55 94 11/28/16 20:14 Full Face Mask 40.0 11/28/16 20:00 101.7 11/28/16 20:00 99.7 11/28/16 16:00 96.8 101 20 139/73 96 Physical Exam CONSTITUTIONAL/GENERAL: This is a morbuidly obese patient, in no apparent distress. He is non cooperative and refuses to be examined TUBES/LINES/DRAINS: SKIN: No jaundice, rashes, or lesions. HEAD: Atraumatic. Normocephalic. EYES: refuses to be examined ENT: Hearing grossly normal. refuses to be examined NECK: refuses to be examined CARDIOVASCULAR: refuses to be examined RESPIRATORY/CHEST: unlabored respirations. refuses to be examined GASTROINTESTINAL: refuses to be examined GENITOURINARY:Montelongo catheter in place with very cloudy and bloody urine MUSCULOSKELETAL: Sp L AKA refuses to be examined LYMPHATICS: refuses to be examined NEUROLOGICAL: Awake and alert. Speech normal Moves b/l upper extremities. PSYCHIATRIC: Very non coopertive, refuses treament ; rude to staff Laboratory Laboratory Tests Test 11/29/16 12:45 Urine Color RED Urine Turbidity CLOUDY Urine pH 8.0 Urine Specific [place] 1.010 Urine Protein 300 Urine Glucose (UA) NEG Urine Ketones NEG Urine Occult Blood LARGE Urine Nitrite NEG Urine Bilirubin NEG Urine Urobilinogen LESS THAN 2.0 Urine Leukocyte Esterase LARGE Urine RBC Urine WBC Urine WBC Clumps MANY Urine Bacteria MANY Microscopic Urinalysis Comment CULTURE INDICATED Date/Time Procedure Status Source Growth 11/29/16 12:45 Urine Culture Received Urine Suprapubic Urine Pending Assessment and Plan Assessment and Plan Sepsis 2/2 UTI sp recent cystocopy Clinically sepsic (fever, tachycardia, hyupoxia) H/o MDROs (ESBL, VRE) Non cooperative H/o adverse reactions to multiple abx: including azacta, cefepime, PCn - cont meropenem, zyvox - add fluconszole Discussed Condition With Radha Cifuentes MD Nov 29, 2016 15:59
[2016-11-29] MEDS: MEROPENEM INJ 2,000 MG in SODIUM CHLORIDE 0.9% INJ 100 ML IV SCH (16:00)
[2016-11-29] MEDS: LINEZOLID 600 MG PREMIX 300 ML IV SCH (16:00)
[2016-11-29 16:01] LABS: BLOOD GAS BASE EXCESS -1.1 mmol/L (-2-2); BLOOD GAS CARBOXYHEMOGLOBIN 2.4 % (0-4); BLOOD GAS HCO3 21 mmol/L (22-26); BLOOD GAS METHEMOGLOBIN 0.7 % (0-2); BLOOD GAS O2 HGB SATURATION 97 % (90-100); BLOOD GAS OXYGEN CONTENT 15.8 Vol % (12.0-20.0); BLOOD GAS PCO2 24 mmHg (38-42); BLOOD GAS PO2 177 mmHg (61-120); BLOOD GAS TOTAL HGB 11.4 G/DL (12.0-16.0); CRITICAL VALUE YES; TEMP CORR TO 98.6
[2016-11-29 16:02] LABS: DRAW SITE RT RADIAL; LITER FLOW 2 L/M; NUMBER OF ARTERIAL PUNCTURES 1; OXYGEN DEVICE NASAL CANNULA; STAT YES; ULNAR PULSE PRESENT
[2016-11-29] MEDS: FLUCONAZOLE 400 MG PREMIX BAG 200 ML IV SCH (18:00)
[2016-11-29] MEDS: HYDROmorphone HCL PF 2 MG/ML VIAL IV PUSH PRN (18:00)
--- NOTE | 2016-11-29 18:58 | PD.PROCEDR ---
Procedure Note Procedure Procedure: Arterial Line Placement Left radial arterial line Diagnosis: Sepsis Indications: And need for serial blood gas sampling Consent: Verbal consent was obtained Description of the Procedure: The left wrist was prepped and draped sterilely. 1% lidocaine was used for local anesthesia. The pulse was located and a needle was advanced into the artery. A 20 gauge, 12 cm catheter was advanced into the artery using a modified Seldinger technique. The catheter was sutured to the skin and a sterile dressing was applied. The catheter was connected to a pressure transducer and an arterial waveform was noted. Ultrasound guidance: Ultrasound guidance was used to identify the left radial artery. The anatomy of the left wrist was deemed normal. Under direct ultrasound visualization, the needle was advanced until pulsatile bright red blood was obtained. There were no immediate complications noted. There was minimal EBL. I personally performed the procedure. Colt Pablo MD Nov 29, 2016 18:58
[2016-11-29 19:01] LABS: HEMATOCRIT 33.6 % (39.0-51.0); MEAN CELL VOLUME 72.7 FL (80.0-100.0); MEAN CORPUSCULAR HEMOGLOBIN 23.7 PG (27.0-34.0); MEAN CORPUSCULAR HGB CONC 32.6 % (32.0-36.0); PLATELET COUNT 310 TH/MM3 (150-450); RED BLOOD COUNT 4.63 MIL/MM3 (4.50-5.90); RED CELL DISTRIBUTION WIDTH 19.2 % (11.6-17.2); WHITE BLOOD COUNT 37.2 TH/MM3 (4.0-11.0)
[2016-11-29 19:15] LABS: REVIEW FLAG FINAL
[2016-11-29 19:24] LABS: ANION GAP 11 MEQ/L (5-15); AST (GOT) 12 U/L (15-37); BICARBONATE 24.6 MEQ/L (21.0-32.0); BLOOD UREA NITROGEN 21 MG/DL (7-18); CHLORIDE 96 MEQ/L (98-107); GLOMERULAR FILTRATION RATE 65 ML/MIN (>89); SODIUM (NA) 132 MEQ/L (136-145)
[2016-11-29 19:27] LABS: ALKALINE PHOSPHATASE 120 U/L (45-117); ALT (GPT) 14 U/L (12-78)
--- NOTE | 2016-11-29 20:33 | PD.CONS ---
[facility] Service Critical Care Medicine Consult Requested By Dr. Song Reason for Consult possible sepsis Primary Care Physician No Primary Care Physician History of Present Illness this is a 25yM super morbidly obese who resides in a SNF and presented initially to our facility as a possible Felipe Act for threatening staff at his SNF. He does have a history of resistant UTI and chronic decubitus ulcers. While inpatient, he has been treated for urinary tract infection. Today on evaluation by Dr. Song, he was tachycardic and diaphoretic and tachypneic. AM labs were unable to be obtained secondary to his body habitus and per the patient, 13 attempts were made. He was transferred to the ICU for closer monitoring and what appeared to be sepsis clinically. When I evaluated the patient, he was not tachycardic. He denies chest pain, shortness of breath, nausea, vomiting, diarrhea. denies fever/chills. He states he feels "weaker" than normal. He was refusing to have telemetry monitors connected, and was demanding a PICC line. I explained that a PICC line was contraindicated with early sepsis and possible blood stream infection. Instead, I placed a radial arterial line for frequent blood pressure assessment and the ability to draw serial labs. These demonstrated a wbc 37k, Cr 1.32 up from 0.9, lactate of 1.2. Critical care medicine is consulted to evaluate and manage his early sepsis. Review of Systems Constitutional: COMPLAINS OF: Diaphoretic episodes, Fatigue, DENIES: Fever, Weight gain, Weight loss, Chills, Change in appetite, Night Sweats Endocrine: DENIES: Heat/cold intolerance Respiratory: DENIES: Apneas, Cough, Wheezing, Sputum production, Shortness of breath Cardiovascular: DENIES: Chest pain, Syncope, Dyspnea on Exertion Gastrointestinal: DENIES: Abdominal pain, Black stools, Bloody stools, Constipation, Diarrhea, Nausea, Vomiting, Difficulty Swallowing, Anorexia Genitourinary: DENIES: Urinary frequency, Urinary incontinence, Dysuria Neurologic: DENIES: Headache Psychiatric: DENIES: Anxiety, Depression Past Family Social History Allergies: Coded Allergies: Adhesives (Verified Allergy, Severe, 11/10/16) Azactam (Verified Allergy, Mild, rash, 11/10/16) Mild localized rash. Confirm with patient on January 11, 2016. Clindamycin (Verified Allergy, Mild, rash, 11/10/16) Mild localized rash. Confirm with patient on January 11, 2016. Penicillin (Verified Allergy, Mild, rash, 11/10/16) Mild localized rash. Confirm with patient on January 11, 2016. *MDRO Multi-Drug Resistant Organism (Verified Adverse Reaction, Unknown, ) E. coli ESBL positive (urine) - 07/2012 MRSA (foot- 10/27/15),(blood-12/2015),(ankle-04/16/16); MRSA PCR (nares) positive - 01/10/16; ESBL+Klebsiella Pneumoniae & VRE (urine-05/23/16) MDR Pseudomonas aeruginosa (urine) - 05/23/16 Uncoded Allergies: CEFEPIME (Allergy, Mild, Rash, 01/11/16) Mild localized rash. Confirm with patient on January 11, 2016. Past Medical History Sleep apnea CHF HTN CAD Neurogenic bladder DM HLD Hypothyroid Past Surgical History LAKA Tonsilectomy T12 with multiple surgeries Right pinky toe amputation Reported Medications Lipitor (Atorvastatin Calcium) 40 Mg Tab 40 Mg PO DAILY Anti-Fungal (Clotrimazole (Topical)) 1 % Cre 1 Applic TOPICAL DAILY PRN Santyl Topical (Collagenase) 250 Unit/Gm Oint 1 Applic TOPICAL DAY SHIFT Lexapro (Escitalopram Oxalate) 20 Mg Tab 20 Mg PO HS Mapap (Acetaminophen) 325 Mg Tab 650 Mg PO Q6HR PRN Xarelto (Rivaroxaban) 20 Mg Tab 20 Mg PO HS Levothyroxine (Levothyroxine Sodium) 50 Mcg Tab 50 Mcg PO DAILY Lantus Inj (Insulin Glargine) 1,000 Unit/10 Ml Vial 55 Units SQ HS Baclofen 20 Mg Tab 20 Mg PO Q6HR PRN K-Tab (Potassium Chloride) 20 Meq Tab 20 Meq PO DAILY Humalog Inj (Insulin Human Lispro) 1,000 Unit/10 Ml Vial 3-15 Units SQ ACHS Max dose at bedtime:( )units; sugars 70-150,(0)units; sugars 151-200,(3)units; sugars 201-250,(5)units; sugars 251-300,(8)units; sugars 301-350,(10)units; sugars 351-400, (12)units; sugars 401-500, (15)units. Lasix (Furosemide) 40 Mg Tab 40 Mg PO BID Albuterol Neb (Albuterol Sulfate) 2.5 Mg/3 Ml Neb 2.5 Mg NEB Q6HR PRN While awake C 500 (Ascorbic Acid) 500 Mg Tab 500 Mg PO BID Senna S (Sennosides-Docusate Sodium) 8.6-50 Mg Tab 1 Tab PO BID Thera-M (Multiple Vitamins W/ Minerals) 1 Tab 1 Tab PO DAILY Ambien (Zolpidem Tartrate) 10 Mg Tab 10 Mg PO HS Diff-Stat (Probiotic Product) 1 Cap Cap 2 Cap PO HS Simethicone 80 Mg Chw 160 Mg CHEW ACHS PRN Oxybutynin ER 24 HR (Oxybutynin Chloride) 5 Mg Tab 5 Mg PO HS Poly-Iron 150 (Polysaccharide Iron Complex) 150 Mg Cap 150 Mg PO BID Wellbutrin Xl 24 HR (Bupropion HCl) 150 Mg Tab 150 Mg PO DAILY Wellbutrin Xl 24 HR (Bupropion HCl) 300 Mg Tab 300 Mg PO DAILY Zantac (Ranitidine HCl) 150 Mg Tab 150 Mg PO DAILY Trazodone (Trazodone HCl) 100 Mg Tab 200 Mg PO HS Xanax (Alprazolam) 2 Mg Tab 2 Mg PO Q6HR PRN Morphine ER (Morphine Sulfate) 30 Mg Tab 30 Mg PO Q8H Morphine ER (Morphine Sulfate) 100 Mg Tab 100 Mg PO Q8H Roxicodone (Oxycodone HCl) 30 Mg Tab 30 Mg PO Q4HR PRN Peridex Liq (Chlorhexidine Gluconate (Mouth) Liq) 0.12% Soln 10 Ml SWISH-SPIT BID PRN Phenergan (Promethazine HCl) 25 Mg Tab 25 Mg PO Q8HR PRN Active Ordered Medications See MAR Family History Family history significant for heart disease and diabetes. DAD: DM Mom: DM Maternal Grandma: heart disease Social History Tobacco use: E cig Alcohol use: Denies Illicit drug use: Marijuana Physical Exam Vital Signs Vital Signs Date Time Temp Pulse Resp B/P Pulse Ox O2 Delivery O2 Flow Rate FiO2 11/29/16 12:00 100.1 119 20 114/54 94 11/29/16 08:00 101.6 125 21 109/52 93 11/29/16 04:00 98.2 101 20 129/60 96 11/29/16 00:00 101.3 110 20 105/55 94 Physical Exam gen: super morbidly obese male, sitting in bed. refusing to wear clothes. refusing telemetry. heent: nc. at. perrl. mucous membranes are moist. neck: unable to assess jvd due to body habitus. trachea midline. chest: distant breath sounds. unlabored. equal chest rise. clear to auscultation cv: normal rate, regular rhythm. muffled heart sounds. abd: obese. soft. nontender, nondistended. no guarding. extr: left lower extremity amputation noted. no 1+ peripheral edema. distal pulses 1+. neuro: RASS 0. follows commands. Laboratory Laboratory Tests Test 11/29/16 11/29/16 11/29/16 12:45 15:40 18:44 Urine Color RED Urine Turbidity CLOUDY Urine pH 8.0 Urine Specific Dawn 1.010 Urine Protein 300 Urine Glucose (UA) NEG Urine Ketones NEG Urine Occult Blood LARGE Urine Nitrite NEG Urine Bilirubin NEG Urine Urobilinogen LESS THAN 2.0 Urine Leukocyte Esterase LARGE Urine RBC Urine WBC Urine WBC Clumps MANY Urine Bacteria MANY Microscopic Urinalysis Comment CULTURE INDICATED Blood Gas Puncture Site RT RADIAL Blood Gas Patient Temperature 98.6 Blood Gas HCO3 21 Blood Gas Base Excess -1.1 Blood Gas Oxygen Saturation 97 Arterial Blood pH 7.55 Arterial Blood Partial 24 Pressure CO2 Arterial Blood Partial 177 Pressure O2 Arterial Blood Oxygen Content 15.8 Arterial Blood 2.4 Carboxyhemoglobin Arterial Blood Methemoglobin 0.7 Blood Gas Hemoglobin 11.4 Oxygen Delivery Device NASAL CANNULA Blood Gas Liter Flow 2 White Blood Count 37.2 Red Blood Count 4.63 Hemoglobin 11.0 Hematocrit 33.6 Mean Corpuscular Volume 72.7 Mean Corpuscular Hemoglobin 23.7 Mean Corpuscular Hemoglobin 32.6 Concent Red Cell Distribution Width 19.2 Platelet Count 310 Mean Platelet Volume 8.0 Sodium Level 132 Potassium Level 4.0 Chloride Level 96 Carbon Dioxide Level 24.6 Anion Gap 11 Blood Urea Nitrogen 21 Creatinine 1.32 Estimat Glomerular Filtration 65 Rate Random Glucose 228 Lactic Acid Level 1.2 Calcium Level 8.3 Total Bilirubin 1.0 Aspartate Amino Transf 12 (AST/SGOT) Alanine Aminotransferase 14 (ALT/SGPT) Alkaline Phosphatase 120 Total Protein 7.6 Albumin 2.6 Date/Time Procedure Status Source Growth 11/29/16 18:44 Aerobic Blood Culture Received Blood Peripheral Pending 11/29/16 18:44 Anaerobic Blood Culture Received Blood Peripheral Pending 11/29/16 12:45 Urine Culture Received Urine Suprapubic Urine Pending Result Diagram: 11/29/16 1844 11/29/16 1844 Assessment and Plan Assessment and Plan Assessment: 25yM super morbidly obese with history of prior resistant UTI and chronic decubitus ulcers presents with leukocytosis, tachypnea, diaphoresis and sepsis. No increased o2 requirement. Urine likely source of sepsis. Arterial line placed for accurate bp measurements and serial lab draws. if cultures are negative, would strongly consider PICC line placement. Agree with watching him in an ICU setting overnight because if he did clinically worsen, his body habitus would make him high risk for airway or procedural complications associated with worsening sepsis, and would benefit from being in a high acuity area. If he does clinically improve, could transfer out of ICU tomorrow. Active Problems: Super Morbid Obesity Urinary Tract Infection Sepsis Acute Kidney Injury Recommendations: -- art line placed for accurate BP monitoring and serial lab draws -- AM cbc, bmp, lactate -- strict I/Os carefully watching uop given LISA -- hold lasix -- agree with abx choices of Linezolid and Meropenem. Agree with ID consult. -- aggressive pulmonary toilet. -- can likely transfer back to hospitalist service and to floor tomorrow if he clinically improves. -- would wait at least 24-48h and then likely require PICC line for iv abx and lab draws given his body habitus. Code Status FULL CODE Discussed Condition With Dr. Song, bedside RN. Colt Pablo MD Nov 29, 2016 20:33
[2016-11-29] MEDS: RIVAROXABAN 20 MG TAB PO SCH (20:34)
[2016-11-29] MEDS: TOLTERODINE TARTRATE 2 MG CAP LA PO SCH (21:00)
[2016-11-30] VITALS (10 sets, daily range): BP systolic 74–103; BP diastolic 37–54; PULSE 100–115; RESP 24–32; TEMP 99–101.1; O2SAT 88–100
[2016-11-30] MEDS: MEROPENEM INJ 2,000 MG in SODIUM CHLORIDE 0.9% INJ 100 ML IV SCH ×3 (00:30→16:09)
[2016-11-30] MEDS: ONDANSETRON HCL 4 MG/2 ML VIAL IV PUSH PRN (00:41)
[2016-11-30] MEDS: MORPHINE SULFATE 30 MG CONTROLLED RELEASE TAB PO SCH ×3 (02:00→18:42)
[2016-11-30] MEDS: MORPHINE SULFATE 100 MG CONTROLLED RELEASE TAB PO SCH ×3 (02:00→18:41)
[2016-11-30] MEDS: LINEZOLID 600 MG PREMIX 300 ML IV SCH ×2 (04:10→16:09)
[2016-11-30 05:59] LABS: MEAN CELL VOLUME 73.5 FL (80.0-100.0); MEAN CORPUSCULAR HEMOGLOBIN 22.6 PG (27.0-34.0); MEAN CORPUSCULAR HGB CONC 30.7 % (32.0-36.0); PLATELET COUNT 265 TH/MM3 (150-450); RED BLOOD COUNT 4.22 MIL/MM3 (4.50-5.90); RED CELL DISTRIBUTION WIDTH 19.4 % (11.6-17.2); WHITE BLOOD COUNT 28.3 TH/MM3 (4.0-11.0)
[2016-11-30 06:04] LABS: REVIEW FLAG FINAL
[2016-11-30 06:22] LABS: BICARBONATE 23.7 MEQ/L (21.0-32.0); POTASSIUM 4.4 MEQ/L (3.5-5.1)
[2016-11-30] MEDS: NYSTATIN 100,000 U/GM PWD 15 GM BTL TOPICAL SCH ×2 (06:36→21:00)
[2016-11-30] MEDS: INSULIN ASPART SUPPLEMENTAL SCALE SQ SCH ×4 (07:00→21:00)
[2016-11-30] MEDS: INSULIN ASPART 1,000 UNITS/10 ML VIAL SQ SCH ×3 (08:00→18:43)
[2016-11-30 08:08] LABS: BLOOD GAS BASE EXCESS -1.3 mmol/L (-2-2); BLOOD GAS CARBOXYHEMOGLOBIN 2.2 % (0-4); BLOOD GAS HCO3 23 mmol/L (22-26); BLOOD GAS O2 HGB SATURATION 82 % (90-100); BLOOD GAS PCO2 41 mmHg (38-42); BLOOD GAS PO2 52 mmHg (61-120); BLOOD GAS TOTAL HGB 11.3 G/DL (12.0-16.0); TEMP CORR TO 98.6
[2016-11-30] MEDS: POVIDONE IODINE 10% OINT 30 GM TUBE TOPICAL SCH (09:00)
[2016-11-30] MEDS: SODIUM CHLORIDE 0.9% FLUSH 10 ML FLUSH IV FLUSH SCH ×2 (09:00→20:57)
[2016-11-30] MEDS: FUROSEMIDE 40 MG TAB PO SCH (09:00)
[2016-11-30] MEDS: DOCUSATE SODIUM 100 MG CAP PO SCH ×2 (09:00→20:59)
[2016-11-30] MEDS: INSULIN DETEMIR 100 UNITS/ML VIAL SQ SCH ×2 (10:40→20:59)
[2016-11-30] MEDS: ASCORBIC ACID 500 MG TAB PO SCH ×2 (10:41→20:59)
[2016-11-30] MEDS: ATORVASTATIN 40 MG TAB PO SCH (10:41)
[2016-11-30] MEDS: COLLAGENASE OINT 30 GM TUBE TOPICAL SCH (10:41)
[2016-11-30] MEDS: FAMOTIDINE 20 MG TAB PO SCH (10:41)
[2016-11-30] MEDS: OXYBUTYNIN CHLORIDE 5 MG TAB PO SCH ×2 (10:43→20:59)
[2016-11-30] MEDS: ACETAMINOPHEN 325 MG TAB PO PRN (11:13)
[2016-11-30] MEDS: ALPRAZolam 1 MG TAB PO PRN ×2 (13:59→20:58)
[2016-11-30] MEDS: BACLOFEN 20 MG TAB PO PRN ×2 (13:59→21:00)
[2016-11-30] MEDS: HYDROmorphone HCL PF 2 MG/ML VIAL IV PUSH PRN ×2 (14:21→21:01)
[2016-11-30] MEDS: FLUCONAZOLE 400 MG PREMIX BAG 200 ML IV SCH (18:42)
--- NOTE | 2016-11-30 19:00 | HHI.CCPN ---
Subjective Remarks/Hospital Course Hospital Course: this is a 25yM super morbidly obese who resides in a SNF and presented initially to our facility as a possible Felipe Act for threatening staff at his SNF. He does have a history of resistant UTI and chronic decubitus ulcers. While inpatient, he has been treated for urinary tract infection. Today on evaluation by Dr. Song, he was tachycardic and diaphoretic and tachypneic. AM labs were unable to be obtained secondary to his body habitus and per the patient, 13 attempts were made. He was transferred to the ICU for closer monitoring and what appeared to be sepsis clinically. When I evaluated the patient, he was not tachycardic. He denies chest pain, shortness of breath, nausea, vomiting, diarrhea. denies fever/chills. He states he feels "weaker" than normal. He was refusing to have telemetry monitors connected, and was demanding a PICC line. I explained that a PICC line was contraindicated with early sepsis and possible blood stream infection. Instead, I placed a radial arterial line for frequent blood pressure assessment and the ability to draw serial labs. These demonstrated a wbc 37k, Cr 1.32 up from 0.9, lactate of 1.2. Critical care medicine is consulted to evaluate and manage his early sepsis. Subjective: 11/30: patient refusing medical care overnight. refusing SQ insulin. demanding pain meds. refusing to put telemetry monitors on. overnight with low blood pressures despite fluid boluses. does not want central line. patient found to be concealing E-cigarette in folds of pannus this morning. I had a long conversation with the patient for more than an hour today where he explained most of his hard life and why he feels the way that he does. he states that he "has more in common with a row inmate than a normal human." when I asked him if he would like to talk to a psychiatrist, he said "no, they can't give me the pills I need." Objective Vital Signs Date Time Temp Pulse Resp B/P Pulse Ox O2 Delivery O2 Flow Rate FiO2 11/30/16 16:00 99.0 100 32 74/38 90 11/30/16 04:22 21 11/29/16 19:19 Nasal Cannula 5.00 Intake and Output 11/29/16 11/29/16 11/30/16 08:00 16:00 00:00 Intake Total 582 ml Output Total 1200 ml 900 ml 1200 ml Balance -1200 ml -900 ml -618 ml Result Diagram: 11/30/1652911/30/16529 Objective Remarks gen: super morbidly obese male, sitting in bed. covered in blankets. only talking to me through the blanket at times. heent: nc. at. perrl. mucous membranes are moist. neck: unable to assess jvd due to body habitus. trachea midline. chest: distant breath sounds. unlabored. equal chest rise. clear to auscultation cv: normal rate, regular rhythm. muffled heart sounds. abd: obese. soft. nontender, nondistended. no guarding. extr: left lower extremity amputation noted. no 1+ peripheral edema. distal pulses 1+. neuro: RASS 0. follows commands. Procedures 11/25- S/P flexible cystoscopy with replacement of kyle catheter (Councill catheter) Date of Insertion: Nov 25, 2016 A/P Assessment and Plan Assessment: 25yM super morbidly obese with history of prior resistant UTI and chronic decubitus ulcers presents with leukocytosis, tachypnea, diaphoresis and septic shock. No increased o2 requirement. Urine likely source of sepsis. Arterial line placed for accurate bp measurements and serial lab draws. if cultures are negative, would strongly consider PICC line placement. Given that the patient is refusing medical care at times, he is becoming a hindrance to his own medical care. I talked with him about this. He states that he only refuses things because he is in pain. He has a very aggressive current pain regimen, and we talked about the fact that with his changing renal function, it would be unsafe to increase his pain meds at this point. Because he does not want a central line, I will start midodrine to help with end-organ perfusion as we cautiously watch his blood pressure. Continue in an ICU today. If he continues to improve, could transfer out tomorrow. Active Problems: Super Morbid Obesity Urinary Tract Infection Septic Shock Acute Kidney Injury Recommendations: -- continue art line -- daily CBC, BMP -- strict I/Os -- continue to hold lasix -- midodrine 10mg po q8hr, hold for hypertension. -- continue Linezolid and Meropenem. ID following. -- aggressive pulmonary toilet. -- would wait at least 24-48h and then likely require PICC line for iv abx and lab draws given his body habitus. Colt Pablo MD Nov 30, 2016 19:00
[2016-11-30] MEDS: ZOLPIDEM TARTRATE 10 MG TAB PO SCH (20:59)
[2016-11-30] MEDS: TOLTERODINE TARTRATE 2 MG CAP LA PO SCH (20:59)
[2016-11-30] MEDS: traZODone HCL 100 MG TAB PO SCH (20:59)
[2016-11-30] MEDS: RIVAROXABAN 20 MG TAB PO SCH (21:00)
[2016-11-30] MEDS: MIDODRINE 5 MG TAB PO SCH (21:00)
[2016-12-01] VITALS (12 sets, daily range): BP systolic 73–131; BP diastolic 36–70; PULSE 78–102; RESP 16–33; TEMP 98.6–100.9; O2SAT 89–100
[2016-12-01] MEDS: MORPHINE SULFATE 30 MG CONTROLLED RELEASE TAB PO SCH ×3 (01:25→18:00)
[2016-12-01] MEDS: MORPHINE SULFATE 100 MG CONTROLLED RELEASE TAB PO SCH ×3 (01:25→18:00)
[2016-12-01] MEDS: HYDROmorphone HCL PF 2 MG/ML VIAL IV PUSH PRN ×2 (04:12→12:46)
[2016-12-01] MEDS: LINEZOLID 600 MG PREMIX 300 ML IV SCH (04:12)
[2016-12-01] MEDS: ACETAMINOPHEN 325 MG TAB PO PRN (04:16)
[2016-12-01 04:57] LABS: HEMATOCRIT 29.6 % (39.0-51.0); MEAN CELL VOLUME 73.1 FL (80.0-100.0); MEAN CORPUSCULAR HEMOGLOBIN 22.9 PG (27.0-34.0); MEAN CORPUSCULAR HGB CONC 31.3 % (32.0-36.0); PLATELET COUNT 230 TH/MM3 (150-450); RED BLOOD COUNT 4.05 MIL/MM3 (4.50-5.90); RED CELL DISTRIBUTION WIDTH 19.3 % (11.6-17.2); WHITE BLOOD COUNT 16.4 TH/MM3 (4.0-11.0)
[2016-12-01 05:06] LABS: REVIEW FLAG FINAL
[2016-12-01] MEDS: MIDODRINE 5 MG TAB PO SCH ×3 (05:06→21:35)
[2016-12-01] MEDS: ALPRAZolam 1 MG TAB PO PRN ×2 (05:08→12:46)
[2016-12-01] MEDS: LEVOTHYROXINE SODIUM 50 MCG TAB PO SCH (05:08)
[2016-12-01] MEDS: BACLOFEN 20 MG TAB PO PRN ×2 (05:08→12:46)
[2016-12-01 05:16] LABS: BICARBONATE 23.1 MEQ/L (21.0-32.0); POTASSIUM 4.1 MEQ/L (3.5-5.1)
[2016-12-01] MEDS: INSULIN ASPART SUPPLEMENTAL SCALE SQ SCH ×4 (06:26→21:00)
[2016-12-01] MEDS: INSULIN ASPART 1,000 UNITS/10 ML VIAL SQ SCH ×4 (08:00→16:00)
[2016-12-01] MEDS: SODIUM CHLORIDE 0.9% FLUSH 10 ML FLUSH IV FLUSH SCH ×2 (09:21→20:36)
[2016-12-01] MEDS: MEROPENEM INJ 2,000 MG in SODIUM CHLORIDE 0.9% INJ 100 ML IV SCH ×3 (09:21)
[2016-12-01] MEDS: OXYBUTYNIN CHLORIDE 5 MG TAB PO SCH ×2 (09:22→20:36)
[2016-12-01] MEDS: ASCORBIC ACID 500 MG TAB PO SCH ×2 (09:22→20:36)
[2016-12-01] MEDS: DOCUSATE SODIUM 100 MG CAP PO SCH ×2 (09:22→20:37)
[2016-12-01] MEDS: FAMOTIDINE 20 MG TAB PO SCH (09:22)
[2016-12-01] MEDS: INSULIN DETEMIR 100 UNITS/ML VIAL SQ SCH ×2 (09:23→20:37)
[2016-12-01] MEDS: POVIDONE IODINE 10% OINT 30 GM TUBE TOPICAL SCH (09:23)
[2016-12-01] MEDS: NYSTATIN 100,000 U/GM PWD 15 GM BTL TOPICAL SCH ×2 (09:23→21:00)
[2016-12-01] MEDS: COLLAGENASE OINT 30 GM TUBE TOPICAL SCH (09:24)
[2016-12-01] MEDS: ATORVASTATIN 40 MG TAB PO SCH (09:28)
[2016-12-01] MEDS: SIMETHICONE 80 MG CHEWABLE TAB CHEW PRN (12:46)
--- NOTE | 2016-12-01 14:34 | HHI.IDPN ---
Subjective Subjective Remarks pt is mildly hypotensive today no co wants tot alk to palliative care Antibiotics meropenem zyvox fluconazol Past Medical History paraplegia Allergies: Coded Allergies: Adhesives (Verified Allergy, Severe, 11/10/16) Azactam (Verified Allergy, Mild, rash, 11/10/16) Mild localized rash. Confirm with patient on January 11, 2016. Clindamycin (Verified Allergy, Mild, rash, 11/10/16) Mild localized rash. Confirm with patient on January 11, 2016. Penicillin (Verified Allergy, Mild, rash, 11/10/16) Mild localized rash. Confirm with patient on January 11, 2016. *MDRO Multi-Drug Resistant Organism (Verified Adverse Reaction, Unknown, ) E. coli ESBL positive (urine) - 07/2012 MRSA (foot- 10/27/15),(blood-12/2015),(ankle-04/16/16); MRSA PCR (nares) positive - 01/10/16; ESBL+Klebsiella Pneumoniae & VRE (urine-05/23/16) MDR Pseudomonas aeruginosa (urine) - 05/23/16 Uncoded Allergies: CEFEPIME (Allergy, Mild, Rash, 01/11/16) Mild localized rash. Confirm with patient on January 11, 2016. Objective . Vital Signs Date Time Temp Pulse Resp B/P Pulse Ox O2 Delivery O2 Flow Rate FiO2 12/01/16 13:06 91 21 12/01/16 12:00 98.8 91 24 114/70 97 12/01/16 10:22 20 12/01/16 10:22 20 12/01/16 08:00 95 12/01/16 08:00 98.6 78 24 96/56 94 12/01/16 06:07 23 12/01/16 05:16 90 21 12/01/16 04:42 26 12/01/16 04:00 100.9 102 30 98/48 91 12/01/16 01:55 89 50 12/01/16 00:00 99.8 95 33 73/36 89 11/30/16 20:00 104 11/30/16 20:00 100.4 104 29 96/42 88 11/30/16 19:20 95 21 11/30/16 16:00 99.0 100 32 74/38 90 11/30/16 11/30/1617 15:00 23:00 07:00 Intake Total 1693 ml 1141 ml 693 ml Output Total 1800 ml 2200 ml 625 ml Balance -107 ml -1059 ml 68 ml Intake Oral 960 ml 480 ml 240 ml IV Total 733 ml 661 ml 453 ml Output Urine Total 1800 ml 2200 ml 625 ml # Bowel Movements 0 0 0 . Laboratory Tests Test 11/29/16 11/30/16 12/01/16 18:44 05:30 04:00 White Blood Count 37.2 TH/MM3 28.3 TH/MM3 16.4 TH/MM3 Red Blood Count 4.63 MIL/MM3 4.22 MIL/MM3 4.05 MIL/MM3 Hemoglobin 11.0 GM/DL 9.5 GM/DL 9.3 GM/DL Hematocrit 33.6 % 31.0 % 29.6 % Mean Corpuscular Volume 72.7 FL 73.5 FL 73.1 FL Mean Corpuscular Hemoglobin 23.7 PG 22.6 PG 22.9 PG Mean Corpuscular Hemoglobin 32.6 % 30.7 % 31.3 % Concent Red Cell Distribution Width 19.2 % 19.4 % 19.3 % Platelet Count 310 TH/MM3 265 TH/MM3 230 TH/MM3 Mean Platelet Volume 8.0 FL 8.2 FL 8.4 FL Laboratory Tests Test 11/29/16 11/30/16 12/01/16 18:44 05:30 04:00 Sodium Level 132 MEQ/L 130 MEQ/L 134 MEQ/L Potassium Level 4.0 MEQ/L 4.4 MEQ/L 4.1 MEQ/L Chloride Level 96 MEQ/L 97 MEQ/L 101 MEQ/L Carbon Dioxide Level 24.6 MEQ/L 23.7 MEQ/L 23.1 MEQ/L Anion Gap 11 MEQ/L 9 MEQ/L 10 MEQ/L Blood Urea Nitrogen 21 MG/DL 25 MG/DL 33 MG/DL Creatinine 1.32 MG/DL 1.60 MG/DL 1.78 MG/DL Estimat Glomerular Filtration 65 ML/MIN 52 ML/MIN 46 ML/MIN Rate Random Glucose 228 MG/DL 327 MG/DL 179 MG/DL Lactic Acid Level 1.2 mmol/L Calcium Level 8.3 MG/DL 7.6 MG/DL 8.2 MG/DL Total Bilirubin 1.0 MG/DL Aspartate Amino Transf 12 U/L (AST/SGOT) Alanine Aminotransferase 14 U/L (ALT/SGPT) Alkaline Phosphatase 120 U/L Total Protein 7.6 GM/DL Albumin 2.6 GM/DL Microbiology Date/Time Procedure Status Source Growth 11/29/16 12:45 Urine Culture - Final Complete Urine Suprapubic Urine Escherichia Coli Esbl Positive Proteus Mirabilis 11/29/16 18:40 Aerobic Blood Culture - Preliminary Resulted Blood Peripheral NO GROWTH IN 2 DAYS 11/29/16 18:40 Anaerobic Blood Culture - Preliminary Resulted Blood Peripheral NO GROWTH IN 2 DAYS 11/29/16 18:44 Aerobic Blood Culture - Preliminary Resulted Blood Peripheral NO GROWTH IN 2 DAYS 11/29/16 18:44 Anaerobic Blood Culture - Preliminary Resulted Blood Peripheral NO GROWTH IN 2 DAYS Physical Exam CONSTITUTIONAL/GENERAL: This is a morbuidly obese patient, in no apparent distress. He is non cooperative and refuses to be examined TUBES/LINES/DRAINS: SKIN: No jaundice, rashes, or lesions. HEAD: Atraumatic. Normocephalic. EYES: RICO EOMI ENT: Hearing grossly normal. moist oral mucosae NECK: refuses to be examined CARDIOVASCULAR: distant heart sounds, no murmurs RESPIRATORY/CHEST: unlabored respirations. clear to auscultation GASTROINTESTINAL: refuses to be examined GENITOURINARY:Montelongo catheter in place with very cloudy and bloody urine MUSCULOSKELETAL: Sp L AKA, healed BACK: small L buttock wound stage III no purulence or erythema, not appearing infected NEUROLOGICAL: Awake and alert. Speech normal Moves b/l upper extremities; paraplegic PSYCHIATRIC: calm, buit difficult in cooperation with care Assessment & Plan Remarks Sepsis 2/2 UTI sp recent cystocopy UTI 2/2 ESBL + Kleb pneiumo, Proteus Clinically sepsic (fever, tachycardia, hyupoxia) H/o MDROs (ESBL, VRE) Non cooperative H/o adverse reactions to multiple abx: including azacta, cefepime, PCn L b uttock chronic decub, not actively infected - dc meropenem, zyvox - dc fluconszole - ertapenem x 14 days (include meropenem time) for ESBL Kleb Radha Henriquez Dr, RN, MD Dec 01, 2016 14:34
[2016-12-01] MEDS ORDERED: ASP: Documented ESBL, MDR A baumannii or P. aeruginosa PRN (14:45)
[2016-12-01] MEDS ORDERED: MISCELLANEOUS PHARMACY INFORMATION XX PRN (14:45)
[2016-12-01] MEDS: ERTAPENEM INJ 1,000 MG in SODIUM CHLORIDE 0.9% INJ 100 ML IV SCH ×2 (15:48→16:00)
--- NOTE | 2016-12-01 17:25 | HHI.PR ---
Subjective Remarks better SBP readings T max 100.9 no pain complains Objective Vitals Vital Signs Date Time Temp Pulse Resp B/P Pulse Ox O2 Delivery O2 Flow Rate FiO2 12/01/16 14:32 25 12/01/16 13:06 91 21 12/01/16 12:00 98.8 91 24 114/70 97 12/01/16 10:22 20 12/01/16 10:22 20 12/01/16 08:00 95 12/01/16 08:00 98.6 78 24 96/56 94 12/01/16 06:07 23 12/01/16 05:16 90 21 12/01/16 04:00 100.9 102 30 98/48 91 12/01/16 01:55 89 50 12/01/16 00:00 99.8 95 33 73/36 89 11/30/16 20:00 104 11/30/16 20:00 100.4 104 29 96/42 88 11/30/16 19:20 95 21 I/O 11/30/16 11/30/16 11/30/16 12/01/16 12/01/16 12/01/16 07:00 15:00 23:00 07:00 15:00 23:00 Intake Total 4693 ml 1693 ml 1141 ml 693 ml 1060 ml Output Total 1200 ml 1800 ml 2200 ml 625 ml 1200 ml Balance 3493 ml -107 ml -1059 ml 68 ml -140 ml Intake Oral 2500 ml 960 ml 480 ml 240 ml 1000 ml IV Total 2193 ml 733 ml 661 ml 453 ml 60 ml Output Urine Total 1200 ml 1800 ml 2200 ml 625 ml 1200 ml # Bowel Movements 0 0 0 0 Result Diagram: 12/01/16 0400 12/01/16 0400 Objective Remarks awake and alert, oriented x 3 lungs- decreased breath sounds, no rales or wheezes tachycardic abdomen flabby, soft, good bowel sounds abdominal fold- sagging- skin between folds- dry left gluteal area with 2 open wounds- [address]- both wound edges clean, no active drainage 11/30 exam scrotal area - with excoriations from pressure sacral area- intact skin, mild erythema dry - mepilex in place for protection kyle catheter in place lower extremities- no open wounds Procedures 11/25- S/P flexible cystoscopy with replacement of kyle catheter (Councill catheter) Date of Insertion: Nov 25, 2016 A/P Problem List: (1) UTI (urinary tract infection) ICD Code: N39.0 Status: Acute (2) Chronic pain ICD Code: G89.29 Status: Chronic (3) Type 2 diabetes mellitus ICD Code: E11.9 Status: Chronic (4) Morbidly obese ICD Code: E66.01 Status: Chronic (5) Depression ICD Code: F32.9 Status: Chronic (6) Pressure ulcer ICD Code: L89.90 Status: Chronic (7) Sleep apnea ICD Code: G47.30 Status: Chronic (8) Hypothyroidism ICD Code: E03.9 Status: Chronic Assessment and Plan 25-year-old male patient with a medical history significant for paraplegia, neurogenic bladder, hypertension, chronic recurrent DVT, chronic pain, sleep apnea, CHF who was brought under Felipe act due to threatening staff at his nursing facility. Neurogenic Bladder SEpsis-New fever - fever 101.9, tachycardia source likely UTI- ESBL HYpotension better BP radings- started on Midodrine S/P Tx for UTI - S/p Levaquin 500 mg course 11/22/2016. S/P replacement of kyle catheter by Dr. Meraz- 11/25. On Oxybutynin 5 mg bid blood cultuires- negative so far started on Meropenem - Diabetes: Mellitus, insulin requring- needs tighter control- reinforced and encourage - Monitor Accu-Cheks, Continue sliding scale insulin.- some readings in low 200s - Increased Levemir 35 units BID. Continue Aspart 6 units TIDAC. - continue to monitor and adjust - Blood glucose has been high. If not well controlled, we will have to change diet back to Diabetic diet (2200 tom). - non compliant Chronic pain. Home medications baclofen, morphine, Dilaudid 1mg IV for breakthrough pain. - Patient does not appear to be in pain. At this point, we will refrain from increasing IV Dilaudid. - He is on Xanax 2mg Q6hrs PRN, Baclofen 20mg Q6hrs PRN, Morphine 130mg PO Q8hrs, Trazodone 200mg QHS. Morbid obesity: Outpatient general surgery referral needed for possible surgical interventions. Chronic pressure ulcers: Wound care team ff. Documented on admission. Patient turning himself rigorously Sleep apnea, CPAP at night Anxiety and depression: no suicidal ideations- concern is more about of pain medications Was evaluated by psych in the ER, Destinee acted lifted, did not meet inpatient psychiatric and admission criteria. -Continue his outpatient psychiatric care upon discharge. -Continue Home meds trazodone, Wellbutrin. Hyperlipidemia: Continue Lipitor Hypothyroidism: Continue levothyroxine chronic pain - on chronic pain meds- Increase dilaudid t1.5 mg a 4 prn Substance use: tox screen on admission significant for opiates, benzos, cannabinoids Full code. on Xarelto.- if cultures negative for 48 hours- consider PICC- will d/w ID Problem Qualifiers (1) Morbidly obese: Qualified Code: E66.01 - Morbid obesity, unspecified obesity type (2) Pressure ulcer: Dangelo Song MD Dec 01, 2016 17:25 Dangelo Song MD Dec 01, 2016 17:25 CBC/CMP labs pending Problem Qualifiers (1) Morbidly obese: Qualified Code: E66.01 - Morbid obesity, unspecified obesity type (2) Pressure ulcer: Dangelo Song MD Dec 01, 2016 17:25 Dangelo Song MD Dec 01, 2016 17:25
[2016-12-01] MEDS: ZOLPIDEM TARTRATE 10 MG TAB PO SCH (20:36)
[2016-12-01] MEDS: TOLTERODINE TARTRATE 2 MG CAP LA PO SCH (20:37)
[2016-12-01] MEDS: traZODone HCL 100 MG TAB PO SCH (20:37)
[2016-12-01] MEDS: RIVAROXABAN 20 MG TAB PO SCH (20:37)
[2016-12-02] VITALS (11 sets, daily range): BP systolic 61–125; BP diastolic 37–65; PULSE 77–104; RESP 14–29; TEMP 97.3–99.8; O2SAT 94–100
[2016-12-02] MEDS ORDERED: ALBUMIN HUMAN 5% 25 GM/500 ML BOTTLE IV ONE
[2016-12-02] MEDS: SODIUM CHLOR 0.9% 1000 ML INJ 1,000 ML IV SCH ×2 (01:00)
[2016-12-02] MEDS: MORPHINE SULFATE 30 MG CONTROLLED RELEASE TAB PO SCH ×3 (02:03→17:47)
[2016-12-02] MEDS: MORPHINE SULFATE 100 MG CONTROLLED RELEASE TAB PO SCH ×3 (02:03→17:47)
[2016-12-02 05:07] LABS: HEMATOCRIT 27.6 % (39.0-51.0); MEAN CORPUSCULAR HEMOGLOBIN 23.4 PG (27.0-34.0); MEAN CORPUSCULAR HGB CONC 32.5 % (32.0-36.0); PLATELET COUNT 282 TH/MM3 (150-450); RED BLOOD COUNT 3.83 MIL/MM3 (4.50-5.90); WHITE BLOOD COUNT 8.7 TH/MM3 (4.0-11.0)
[2016-12-02 05:16] LABS: REVIEW FLAG FINAL
[2016-12-02 05:39] LABS: BICARBONATE 24.1 MEQ/L (21.0-32.0)
[2016-12-02] MEDS: LEVOTHYROXINE SODIUM 50 MCG TAB PO SCH (05:49)
[2016-12-02] MEDS: MIDODRINE 5 MG TAB PO SCH ×3 (05:50→20:08)
[2016-12-02] MEDS: INSULIN ASPART SUPPLEMENTAL SCALE SQ SCH ×4 (06:36→20:29)
[2016-12-02] MEDS: NYSTATIN 100,000 U/GM PWD 15 GM BTL TOPICAL SCH ×2 (09:00→20:08)
[2016-12-02] MEDS: POVIDONE IODINE 10% OINT 30 GM TUBE TOPICAL SCH (09:00)
[2016-12-02] MEDS: COLLAGENASE OINT 30 GM TUBE TOPICAL SCH (09:00)
[2016-12-02] MEDS: OXYBUTYNIN CHLORIDE 5 MG TAB PO SCH ×2 (10:07→20:06)
[2016-12-02] MEDS: SODIUM CHLORIDE 0.9% FLUSH 10 ML FLUSH IV FLUSH SCH ×2 (10:07→20:06)
[2016-12-02] MEDS: DOCUSATE SODIUM 100 MG CAP PO SCH ×2 (10:07→20:06)
[2016-12-02] MEDS: FAMOTIDINE 20 MG TAB PO SCH (10:07)
[2016-12-02] MEDS: ATORVASTATIN 40 MG TAB PO SCH (10:08)
[2016-12-02] MEDS: INSULIN DETEMIR 100 UNITS/ML VIAL SQ SCH ×2 (10:09→20:07)
[2016-12-02] MEDS: ASCORBIC ACID 500 MG TAB PO SCH ×2 (10:09→20:06)
[2016-12-02] MEDS: HYDROmorphone HCL PF 2 MG/ML VIAL IV PUSH PRN ×2 (12:16→23:49)
--- NOTE | 2016-12-02 20:03 | HHI.PR ---
Subjective Remarks patient appears comfortable good po feels pain meds are not being given promptly when he asks for it Objective Vitals Vital Signs Date Time Temp Pulse Resp B/P Pulse Ox O2 Delivery O2 Flow Rate FiO2 12/02/16 18:47 27 12/02/16 18:47 27 12/02/16 16:00 97.7 90 14 112/65 94 12/02/16 12:46 18 12/02/16 12:00 97.6 100 19 114/47 95 12/02/16 08:00 98 12/02/16 08:00 97.3 98 28 86/55 12/02/16 07:34 97 Nasal Cannula 4.00 12/02/16 04:23 100 Nasal Cannula 4.00 12/02/16 04:00 98.2 100 29 102/60 100 92/50 12/02/16 01:37 100 50 12/02/16 00:00 99.8 77 14 61/37 100 81/41 12/01/16 22:19 99 50 I/O 12/01/16 12/01/16 12/01/16 12/02/16 12/02/16 12/02/16 07:00 15:00 23:00 07:00 15:00 23:00 Intake Total 693 ml 1060 ml 1109 ml 3628 ml 701 ml Output Total 625 ml 1200 ml 1375 ml 2200 ml 1700 ml Balance 68 ml -140 ml -266 ml 1428 ml -999 ml Intake Oral 240 ml 1000 ml 600 ml 1000 ml 640 ml IV Total 453 ml 60 ml 509 ml 128 ml 61 ml Other 2500 ml Output Urine Total 625 ml 1200 ml 1375 ml 2200 ml 1700 ml Stool Total 0 ml # Bowel Movements 0 0 0 Result Diagram: 12/02/1640912/02/16409 Objective Remarks awake and alert, oriented x 3 lungs- decreased breath sounds, no rales or wheezes tachycardic abdomen flabby, soft, good bowel sounds abdominal fold- sagging- skin between folds- dry left gluteal area with 2 open wounds- [address]- both wound edges clean, no active drainage scrotal area - with excoriations from pressure sacral area- intact skin, mild erythema dry - mepilex in place for protection kyle catheter in place lower extremities- no open wounds Procedures 11/25- S/P flexible cystoscopy with replacement of kyle catheter (Councill catheter) Date of Insertion: Nov 25, 2016 A/P Problem List: (1) UTI (urinary tract infection) ICD Code: N39.0 Status: Acute (2) Chronic pain ICD Code: G89.29 Status: Chronic (3) Type 2 diabetes mellitus ICD Code: E11.9 Status: Chronic (4) Morbidly obese ICD Code: E66.01 Status: Chronic (5) Depression ICD Code: F32.9 Status: Chronic (6) Pressure ulcer ICD Code: L89.90 Status: Chronic (7) Sleep apnea ICD Code: G47.30 Status: Chronic (8) Hypothyroidism ICD Code: E03.9 Status: Chronic Assessment and Plan 25-year-old male patient with a medical history significant for paraplegia, neurogenic bladder, hypertension, chronic recurrent DVT, chronic pain, sleep apnea, CHF who was brought under Felipe act due to threatening staff at his nursing facility. Neurogenic Bladder SEpsis-New fever - fever 101.9, tachycardia source likely UTI- ESBL HYpotension better BP radings- started on Midodrine S/P Tx for UTI - S/p Levaquin 500 mg course 11/22/2016. S/P replacement of kyle catheter by Dr. Meraz- 11/25. On Oxybutynin 5 mg bid blood cultuires- negative so far Ertapenem for 14 days per ID recommendation - Diabetes: Mellitus, insulin requring- needs tighter control- reinforced and encourage - Monitor Accu-Cheks, Continue sliding scale insulin.- some readings in low 200s - Increased Levemir 35 units BID. Continue Aspart 6 units TIDAC. - continue to monitor and adjust - Blood glucose has been high. If not well controlled, we will have to change diet back to Diabetic diet (2200 tom). - non compliant Chronic pain. Home medications baclofen, morphine, Dilaudid 1mg IV for breakthrough pain. - Patient does not appear to be in pain. At this point, we will refrain from increasing IV Dilaudid. - He is on Xanax 2mg Q6hrs PRN, Baclofen 20mg Q6hrs PRN, Morphine 130mg PO Q8hrs, Trazodone 200mg QHS. Morbid obesity: Outpatient general surgery referral needed for possible surgical interventions. Chronic pressure ulcers: Wound care team ff. Documented on admission. Patient turning himself rigorously Sleep apnea, CPAP at night Anxiety and depression: no suicidal ideations- concern is more about of pain medications Was evaluated by psych in the ER, Destinee acted lifted, did not meet inpatient psychiatric and admission criteria. -Continue his outpatient psychiatric care upon discharge. -Continue Home meds trazodone, Wellbutrin. Hyperlipidemia: Continue Lipitor Hypothyroidism: Continue levothyroxine chronic pain - on chronic pain meds- Increase dilaudid t1.5 mg a 4 prn Substance use: tox screen on admission significant for opiates, benzos, cannabinoids Full code. on Xarelto.- if cultures negative for 48 hours- consider PICC- will d/w ID Transfer to medical floor Problem Qualifiers (1) Morbidly obese: Qualified Code: E66.01 - Morbid obesity, unspecified obesity type (2) Pressure ulcer: Dangelo Song MD Dec 02, 2016 20:03
[2016-12-02] MEDS: TOLTERODINE TARTRATE 2 MG CAP LA PO SCH (20:07)
[2016-12-02] MEDS: traZODone HCL 100 MG TAB PO SCH (20:07)
[2016-12-02] MEDS: ALPRAZolam 1 MG TAB PO PRN (20:29)
[2016-12-02] MEDS: ZOLPIDEM TARTRATE 10 MG TAB PO SCH (20:30)
[2016-12-02] MEDS: RIVAROXABAN 20 MG TAB PO SCH (20:36)
[2016-12-02] MEDS: BACLOFEN 20 MG TAB PO PRN (23:48)
[2016-12-03] VITALS (9 sets, daily range): BP systolic 106–139; BP diastolic 50–75; PULSE 73–108; RESP 16–20; TEMP 96.1–98.6; O2SAT 90–98
[2016-12-03] MEDS: MORPHINE SULFATE 100 MG CONTROLLED RELEASE TAB PO SCH ×3 (02:11→18:00)
[2016-12-03] MEDS: MORPHINE SULFATE 30 MG CONTROLLED RELEASE TAB PO SCH ×3 (02:11→18:00)
[2016-12-03] MEDS: BACLOFEN 20 MG TAB PO PRN ×2 (05:02→11:58)
[2016-12-03] MEDS: LEVOTHYROXINE SODIUM 50 MCG TAB PO SCH (05:02)
[2016-12-03] MEDS: MIDODRINE 5 MG TAB PO SCH ×3 (05:02→22:00)
[2016-12-03] MEDS: HYDROmorphone HCL PF 2 MG/ML VIAL IV PUSH PRN ×3 (05:03→16:31)
[2016-12-03] MEDS: ALPRAZolam 1 MG TAB PO PRN ×2 (05:05→11:58)
[2016-12-03] MEDS: INSULIN ASPART SUPPLEMENTAL SCALE SQ SCH ×4 (05:29→21:00)
[2016-12-03] MEDS: FAMOTIDINE 20 MG TAB PO SCH (08:05)
[2016-12-03] MEDS: DOCUSATE SODIUM 100 MG CAP PO SCH ×2 (08:05→21:00)
[2016-12-03] MEDS: ATORVASTATIN 40 MG TAB PO SCH (08:06)
[2016-12-03] MEDS: OXYBUTYNIN CHLORIDE 5 MG TAB PO SCH ×2 (08:06→21:00)
[2016-12-03] MEDS: ONDANSETRON HCL 4 MG/2 ML VIAL IV PUSH PRN (08:06)
[2016-12-03] MEDS: ASCORBIC ACID 500 MG TAB PO SCH ×2 (08:06→21:00)
[2016-12-03] MEDS: POVIDONE IODINE 10% OINT 30 GM TUBE TOPICAL SCH (08:07)
[2016-12-03] MEDS: INSULIN DETEMIR 100 UNITS/ML VIAL SQ SCH ×2 (08:07→21:12)
[2016-12-03] MEDS: NYSTATIN 100,000 U/GM PWD 15 GM BTL TOPICAL SCH ×2 (08:07→21:15)
[2016-12-03] MEDS: SODIUM CHLORIDE 0.9% FLUSH 10 ML FLUSH IV FLUSH SCH ×2 (08:07→21:13)
[2016-12-03] MEDS: COLLAGENASE OINT 30 GM TUBE TOPICAL SCH (08:07)
[2016-12-03 11:24] LABS: HEMATOCRIT 30.5 % (39.0-51.0); MEAN CELL VOLUME 73.9 FL (80.0-100.0); MEAN CORPUSCULAR HEMOGLOBIN 22.8 PG (27.0-34.0); MEAN CORPUSCULAR HGB CONC 30.9 % (32.0-36.0); PLATELET COUNT 302 TH/MM3 (150-450); RED BLOOD COUNT 4.13 MIL/MM3 (4.50-5.90); RED CELL DISTRIBUTION WIDTH 19.8 % (11.6-17.2); WHITE BLOOD COUNT 9.1 TH/MM3 (4.0-11.0)
[2016-12-03 11:28] LABS: REVIEW FLAG FINAL
[2016-12-03 11:48] LABS: BICARBONATE 24.1 MEQ/L (21.0-32.0); POTASSIUM 4.4 MEQ/L (3.5-5.1)
[2016-12-03] MEDS: ERTAPENEM INJ 1,000 MG in SODIUM CHLORIDE 0.9% INJ 100 ML IV SCH (16:30)
--- NOTE | 2016-12-03 16:54 | HHI.PR ---
Subjective Remarks looks comfortable in bed , on his pc , and fried chicken meal he state he hasn't been eating well Objective Vitals Vital Signs Date Time Temp Pulse Resp B/P Pulse Ox O2 Delivery O2 Flow Rate FiO2 12/03/16 16:00 96.3 73 16 106/62 90 12/03/16 10:25 24 12/03/16 09:07 15 12/03/16 08:00 96 12/03/16 08:00 98.2 96 18 112/50 98 12/03/16 07:51 98 40 12/03/16 07:03 106 12/03/16 04:00 98.6 108 16 139/56 95 12/03/16 00:00 98.4 108 20 133/58 97 12/02/16 23:36 100 40 12/02/16 20:44 95 Nasal Cannula 4.00 12/02/16 20:00 98.3 104 20 125/58 96 12/02/16 20:00 99 12/02/16 18:47 27 12/02/16 18:47 27 I/O 12/02/16 12/02/16 12/02/16 12/03/16 12/03/16 12/03/16 07:00 15:00 23:00 07:00 15:00 23:00 Intake Total 3628 ml 701 ml 1320 ml 1510 ml 340 ml Output Total 2200 ml 1700 ml 2000 ml 800 ml 0 ml Balance 1428 ml -999 ml -680 ml 710 ml 340 ml Intake Oral 1000 ml 640 ml 1320 ml 340 ml IV Total 128 ml 61 ml 1510 ml Other 2500 ml Output Urine Total 2200 ml 1700 ml 2000 ml 800 ml 0 ml Stool Total 0 ml # Bowel Movements 0 0 0 0 Result Diagram: 12/03/16 1050 12/03/16 1050 Objective Remarks GENERAL: morbidly obese male, in no acute distress HEAD: Atraumatic. Normocephalic. Skin:decubitus ulcer in gauze EYES: Pupils equal and round. No scleral icterus. No injection or drainage. ENT: No nasal bleeding or discharge. Mucous membranes pink and moist. NECK: Trachea midline. No JVD. CARDIOVASCULAR: Regular rate and rhythm. RESPIRATORY: No accessory muscle use. Clear to auscultation. Breath sounds equal bilaterally. GASTROINTESTINAL: Abdomen soft, non-tender, nondistended. Hepatic and splenic margins not palpable. MUSCULOSKELETAL: Left AKA. NEUROLOGICAL: Awake and alert. Normal speech. Procedures 11/25- S/P flexible cystoscopy with replacement of kyle catheter (Councill catheter) Date of Insertion: Nov 25, 2016 A/P Problem List: (1) UTI (urinary tract infection) ICD Code: N39.0 Status: Acute (2) Chronic pain ICD Code: G89.29 Status: Chronic (3) Type 2 diabetes mellitus ICD Code: E11.9 Status: Chronic (4) Morbidly obese ICD Code: E66.01 Status: Chronic (5) Depression ICD Code: F32.9 Status: Chronic (6) Pressure ulcer ICD Code: L89.90 Status: Chronic (7) Sleep apnea ICD Code: G47.30 Status: Chronic (8) Hypothyroidism ICD Code: E03.9 Status: Chronic Assessment and Plan 12/03: no acute issue , cont current care , monitor for any fever or worsening infection signs A/P: 25-year-old male patient with a medical history significant for paraplegia, neurogenic bladder, hypertension, chronic recurrent DVT, chronic pain, sleep apnea, CHF who was brought under Felipe act due to threatening staff at his nursing facility. Neurogenic Bladder SEpsis-New fever - fever 101.9, tachycardia source likely UTI- ESBL HYpotension better BP radings- started on Midodrine S/P Tx for UTI - S/p Levaquin 500 mg course 11/22/2016. S/P replacement of kyle catheter by Dr. Meraz- 11/25. On Oxybutynin 5 mg bid blood cultuires- negative so far Ertapenem for 14 days per ID recommendation - Diabetes: Mellitus, insulin requring- needs tighter control- reinforced and encourage - Monitor Accu-Cheks, Continue sliding scale insulin.- some readings in low 200s - Increased Levemir 35 units BID. Continue Aspart 6 units TIDAC. - continue to monitor and adjust - Blood glucose has been high. If not well controlled, we will have to change diet back to Diabetic diet (2200 tom). - non compliant Chronic pain. Home medications baclofen, morphine, Dilaudid 1mg IV for breakthrough pain. - Patient does not appear to be in pain. At this point, we will refrain from increasing IV Dilaudid. - He is on Xanax 2mg Q6hrs PRN, Baclofen 20mg Q6hrs PRN, Morphine 130mg PO Q8hrs, Trazodone 200mg QHS. Morbid obesity: Outpatient general surgery referral needed for possible surgical interventions. Chronic pressure ulcers: Wound care team ff. Documented on admission. Patient turning himself rigorously Sleep apnea, CPAP at night Anxiety and depression: no suicidal ideations- concern is more about of pain medications Was evaluated by psych in the ER, Felipe acted lifted, did not meet inpatient psychiatric and admission criteria. -Continue his outpatient psychiatric care upon discharge. -Continue Home meds trazodone, Wellbutrin. Hyperlipidemia: Continue Lipitor Hypothyroidism: Continue levothyroxine chronic pain - on chronic pain meds- Increase dilaudid t1.5 mg a 4 prn Substance use: tox screen on admission significant for opiates, benzos, cannabinoids Full code. on Xarelto.- Discharge Planning Medically stable to be discharged to SNF once arrangement is done Problem Qualifiers (1) Morbidly obese: Qualified Code: E66.01 - Morbid obesity, unspecified obesity type (2) Pressure ulcer: Shamika Fairchild MD Dec 03, 2016 16:54
[2016-12-03] MEDS: TOLTERODINE TARTRATE 2 MG CAP LA PO SCH (21:00)
[2016-12-03] MEDS: traZODone HCL 100 MG TAB PO SCH (21:00)
[2016-12-03] MEDS: ZOLPIDEM TARTRATE 10 MG TAB PO SCH (21:00)
[2016-12-03] MEDS: RIVAROXABAN 20 MG TAB PO SCH (21:00)
[2016-12-04] VITALS (7 sets, daily range): BP systolic 109–147; BP diastolic 61–82; PULSE 72–95; RESP 17–22; TEMP 96.1–97.4; O2SAT 94–99
[2016-12-04] MEDS: MORPHINE SULFATE 100 MG CONTROLLED RELEASE TAB PO SCH ×3 (02:00→17:32)
[2016-12-04] MEDS: MORPHINE SULFATE 30 MG CONTROLLED RELEASE TAB PO SCH ×3 (02:00→17:32)
[2016-12-04 05:19] LABS: HEMATOCRIT 30.4 % (39.0-51.0); MEAN CELL VOLUME 73.9 FL (80.0-100.0); MEAN CORPUSCULAR HEMOGLOBIN 22.4 PG (27.0-34.0); MEAN CORPUSCULAR HGB CONC 30.4 % (32.0-36.0); PLATELET COUNT 312 TH/MM3 (150-450); RED BLOOD COUNT 4.12 MIL/MM3 (4.50-5.90); RED CELL DISTRIBUTION WIDTH 19.8 % (11.6-17.2); WHITE BLOOD COUNT 6.4 TH/MM3 (4.0-11.0)
[2016-12-04 05:50] LABS: BICARBONATE 27.4 MEQ/L (21.0-32.0); POTASSIUM 4.3 MEQ/L (3.5-5.1)
[2016-12-04 05:55] LABS: REVIEW FLAG FINAL
[2016-12-04] MEDS: MIDODRINE 5 MG TAB PO SCH ×3 (06:00→22:00)
[2016-12-04] MEDS: LEVOTHYROXINE SODIUM 50 MCG TAB PO SCH (06:00)
[2016-12-04] MEDS: INSULIN ASPART SUPPLEMENTAL SCALE SQ SCH ×3 (06:27→15:49)
[2016-12-04] MEDS: SODIUM CHLORIDE 0.9% FLUSH 10 ML FLUSH IV FLUSH SCH ×2 (09:00→21:00)
[2016-12-04] MEDS: INSULIN DETEMIR 100 UNITS/ML VIAL SQ SCH ×2 (09:00→20:53)
[2016-12-04] MEDS: POVIDONE IODINE 10% OINT 30 GM TUBE TOPICAL SCH (09:00)
[2016-12-04] MEDS: COLLAGENASE OINT 30 GM TUBE TOPICAL SCH (09:01)
[2016-12-04] MEDS: OXYBUTYNIN CHLORIDE 5 MG TAB PO SCH ×2 (09:01→20:50)
[2016-12-04] MEDS: ATORVASTATIN 40 MG TAB PO SCH (09:01)
[2016-12-04] MEDS: FAMOTIDINE 20 MG TAB PO SCH (09:01)
[2016-12-04] MEDS: DOCUSATE SODIUM 100 MG CAP PO SCH ×2 (09:01→20:49)
[2016-12-04] MEDS: ASCORBIC ACID 500 MG TAB PO SCH ×2 (09:01→20:50)
[2016-12-04] MEDS: NYSTATIN 100,000 U/GM PWD 15 GM BTL TOPICAL SCH ×2 (09:02→21:00)
[2016-12-04] MEDS: BACLOFEN 20 MG TAB PO PRN (09:09)
[2016-12-04] MEDS: ALPRAZolam 1 MG TAB PO PRN (10:19)
[2016-12-04] MEDS: HYDROmorphone HCL PF 2 MG/ML VIAL IV PUSH PRN (11:21)
[2016-12-04] MEDS ORDERED: HYDROmorphone HCL PF 1 MG/ML VIAL IV PUSH PRN (11:45)
--- NOTE | 2016-12-04 13:47 | HHI.PR ---
Subjective Remarks Patient in bed asking to increase his narcotic, I discussed earlier with the nurse who explained to me patient is most of the time sleeping or lethargic due to excessive narcotic, I discussed with him and explained to him that he is at risk of sudden cardiac , patient told me he doesn't care about his life anymore and he just wanted to increase the narcotic. I explained to him that this is illegal and narcotic should be only to alleviate his pain exists, and he offered to sign paper to prove this. I again explained to him that our job is "no harm "Patient was not happy, later on I was told by the nurse patient declined all his medication and he pull out his iv access Objective Vitals Vital Signs Date Time Temp Pulse Resp B/P Pulse Ox O2 Delivery O2 Flow Rate FiO2 12/04/16 12:00 96.8 93 18 147/73 98 12/04/16 10:08 99 21 12/04/16 08:00 97.4 74 18 109/69 99 12/04/16 00:00 96.1 72 20 135/65 99 12/03/16 20:00 96.1 80 20 131/75 98 12/03/16 19:20 97 40 12/03/16 19:07 18 12/03/16 16:00 96.3 73 16 106/62 90 I/O 12/03/16 12/03/16 12/03/16 12/04/16 12/04/16 12/04/16 07:00 15:00 23:00 07:00 15:00 23:00 Intake Total 1510 ml 340 ml 960 ml 240 ml Output Total 800 ml 0 ml 1800 ml 2850 ml Balance 710 ml 340 ml -840 ml -2610 ml Intake Oral 340 ml 960 ml 240 ml IV Total 1510 ml Output Urine Total 800 ml 0 ml 1800 ml 2850 ml # Bowel Movements 0 0 Result Diagram: 12/04/16 0448 12/04/16 044 Objective Remarks GENERAL: morbidly obese male, in no acute distress HEAD: Atraumatic. Normocephalic. Skin:decubitus ulcer in gauze EYES: Pupils equal and round. No scleral icterus. No injection or drainage. ENT: No nasal bleeding or discharge. Mucous membranes pink and moist. NECK: Trachea midline. No JVD. CARDIOVASCULAR: Regular rate and rhythm. RESPIRATORY: No accessory muscle use. Clear to auscultation. Breath sounds equal bilaterally. GASTROINTESTINAL: Abdomen soft, non-tender, nondistended. Hepatic and splenic margins not palpable. MUSCULOSKELETAL: Left AKA. NEUROLOGICAL: Awake and alert. Normal speech. Procedures 11/25- S/P flexible cystoscopy with replacement of kyle catheter (Councill catheter) Date of Insertion: Nov 25, 2016 A/P Problem List: (1) UTI (urinary tract infection) ICD Code: N39.0 Status: Acute (2) Chronic pain ICD Code: G89.29 Status: Chronic (3) Type 2 diabetes mellitus ICD Code: E11.9 Status: Chronic (4) Morbidly obese ICD Code: E66.01 Status: Chronic (5) Depression ICD Code: F32.9 Status: Chronic (6) Pressure ulcer ICD Code: L89.90 Status: Chronic (7) Sleep apnea ICD Code: G47.30 Status: Chronic (8) Hypothyroidism ICD Code: E03.9 Status: Chronic Assessment and Plan 12/03: no acute issue , cont current care , monitor for any fever or worsening infection signs 12/04: Decreased Dilaudid to 1 mg continue to taper, patient did not agree with this, he discussion with him as mentioned above, patient declined later on his medication and pulled out his iv access A/P: 25-year-old male patient with a medical history significant for paraplegia, neurogenic bladder, hypertension, chronic recurrent DVT, chronic pain, sleep apnea, CHF who was brought under Felipe act due to threatening staff at his nursing facility. Neurogenic Bladder SEpsis-New fever - fever 101.9, tachycardia source likely UTI- ESBL HYpotension better BP radings- started on Midodrine S/P Tx for UTI - S/p Levaquin 500 mg course 11/22/2016. S/P replacement of kyle catheter by Dr. Meraz- 11/25. On Oxybutynin 5 mg bid blood cultuires- negative so far Ertapenem for 14 days per ID recommendation - Diabetes: Mellitus, insulin requring- needs tighter control- reinforced and encourage - Monitor Accu-Cheks, Continue sliding scale insulin.- some readings in low 200s - Increased Levemir 35 units BID. Continue Aspart 6 units TIDAC. - continue to monitor and adjust - Blood glucose has been high. If not well controlled, we will have to change diet back to Diabetic diet (2200 tom). - non compliant Chronic pain. Home medications baclofen, morphine, Dilaudid 1mg IV for breakthrough pain. - Patient does not appear to be in pain. At this point, we will refrain from increasing IV Dilaudid. - He is on Xanax 2mg Q6hrs PRN, Baclofen 20mg Q6hrs PRN, Morphine 130mg PO Q8hrs, Trazodone 200mg QHS. Morbid obesity: Outpatient general surgery referral needed for possible surgical interventions. Chronic pressure ulcers: Wound care team ff. Documented on admission. Patient turning himself rigorously Sleep apnea, CPAP at night Anxiety and depression: no suicidal ideations- concern is more about of pain medications Was evaluated by psych in the ER, Felipe acted lifted, did not meet inpatient psychiatric and admission criteria. -Continue his outpatient psychiatric care upon discharge. -Continue Home meds trazodone, Wellbutrin. Hyperlipidemia: Continue Lipitor Hypothyroidism: Continue levothyroxine chronic pain - on chronic pain meds- Increase dilaudid t1.5 mg a 4 prn Substance use: tox screen on admission significant for opiates, benzos, cannabinoids Full code. on Xarelto.- Discharge Planning Medically stable to be discharged to SNF once arrangement is done Problem Qualifiers (1) Morbidly obese: Qualified Code: E66.01 - Morbid obesity, unspecified obesity type (2) Pressure ulcer: Shamika Fairchild MD Dec 04, 2016 13:47
[2016-12-04] MEDS: ERTAPENEM INJ 1,000 MG in SODIUM CHLORIDE 0.9% INJ 100 ML IV SCH (15:49)
[2016-12-04] MEDS: ZOLPIDEM TARTRATE 10 MG TAB PO SCH (20:48)
[2016-12-04] MEDS: traZODone HCL 100 MG TAB PO SCH (20:48)
[2016-12-04] MEDS: TOLTERODINE TARTRATE 2 MG CAP LA PO SCH (20:50)
[2016-12-04] MEDS: RIVAROXABAN 20 MG TAB PO SCH (20:50)
[2016-12-05] VITALS: BP 116/69; PULSE 94; RESP 20; TEMP 97.6; O2SAT 95
[2016-12-05] MEDS: BACLOFEN 20 MG TAB PO PRN ×2 (00:36→11:49)
[2016-12-05] MEDS: INSULIN ASPART SUPPLEMENTAL SCALE SQ SCH ×5 (00:36→21:00)
[2016-12-05] MEDS: ALPRAZolam 1 MG TAB PO PRN ×2 (00:38→11:49)
[2016-12-05] MEDS: LEVOTHYROXINE SODIUM 50 MCG TAB PO SCH (05:00)
[2016-12-05] MEDS: MORPHINE SULFATE 100 MG CONTROLLED RELEASE TAB PO SCH ×3 (05:01→18:34)
[2016-12-05] MEDS: MIDODRINE 5 MG TAB PO SCH ×3 (05:01→22:00)
[2016-12-05] MEDS: MORPHINE SULFATE 30 MG CONTROLLED RELEASE TAB PO SCH ×3 (05:01→18:34)
[2016-12-05 08:00] VITALS: BP 108/56; PULSE 92; RESP 17; TEMP 97.3; O2SAT 93
[2016-12-05] MEDS: ATORVASTATIN 40 MG TAB PO SCH (08:03)
[2016-12-05] MEDS: ASCORBIC ACID 500 MG TAB PO SCH ×2 (08:03→21:03)
[2016-12-05] MEDS: OXYBUTYNIN CHLORIDE 5 MG TAB PO SCH ×2 (08:03→21:02)
[2016-12-05] MEDS: DOCUSATE SODIUM 100 MG CAP PO SCH ×2 (08:03→21:02)
[2016-12-05] MEDS: SODIUM CHLORIDE 0.9% FLUSH 10 ML FLUSH IV FLUSH SCH ×2 (08:04→21:00)
[2016-12-05] MEDS: INSULIN DETEMIR 100 UNITS/ML VIAL SQ SCH ×2 (08:04→21:04)
[2016-12-05] MEDS: POVIDONE IODINE 10% OINT 30 GM TUBE TOPICAL SCH (08:09)
[2016-12-05] MEDS: NYSTATIN 100,000 U/GM PWD 15 GM BTL TOPICAL SCH ×2 (08:09→21:00)
[2016-12-05] MEDS: COLLAGENASE OINT 30 GM TUBE TOPICAL SCH (08:09)
[2016-12-05] MEDS: FAMOTIDINE 20 MG TAB PO SCH (08:11)
[2016-12-05 11:25] LABS: HEMATOCRIT 29.4 % (39.0-51.0); MEAN CELL VOLUME 73.6 FL (80.0-100.0); MEAN CORPUSCULAR HEMOGLOBIN 23.1 PG (27.0-34.0); MEAN CORPUSCULAR HGB CONC 31.4 % (32.0-36.0); PLATELET COUNT 326 TH/MM3 (150-450); WHITE BLOOD COUNT 7.3 TH/MM3 (4.0-11.0)
[2016-12-05 11:27] LABS: REVIEW FLAG FINAL
[2016-12-05 11:49] LABS: BICARBONATE 25.4 MEQ/L (21.0-32.0); POTASSIUM 4.2 MEQ/L (3.5-5.1)
[2016-12-05] MEDS: CLOTRIMAZOLE 1% CREAM 15 GM TOPICAL PRN (11:50)
--- NOTE | 2016-12-05 11:51 | HHI.PR ---
Subjective Remarks pt refused too be seen or examined , he think "i do not know what i am doing " yesterday i started to decrease the dilaudid dose , and they took a collections of pills he was hiding in his folds "also they found him hiding a knife in his skin fold" Objective Vitals Vital Signs Date Time Temp Pulse Resp B/P Pulse Ox O2 Delivery O2 Flow Rate FiO2 12/05/16 08:00 97.3 92 17 108/56 93 12/05/16 00:00 97.6 94 20 116/69 95 12/04/16 20:00 97.2 95 22 109/61 94 12/04/16 20:00 97.2 95 22 109/64 94 12/04/16 16:00 96.9 93 17 128/82 97 12/04/16 12:00 96.8 93 18 147/73 98 I/O 12/04/16 12/04/16 12/04/16 12/05/16 12/05/16 12/05/16 07:00 15:00 23:00 07:00 15:00 23:00 Intake Total 240 ml 2880 ml 640 ml 480 ml Output Total 2850 ml 1900 ml 1200 ml 2600 ml Balance -2610 ml 980 ml -560 ml -2120 ml Intake Oral 240 ml 2880 ml 640 ml 480 ml Output Urine Total 2850 ml 1900 ml 1200 ml 2600 ml # Bowel Movements 0 0 0 Result Diagram: 12/05/16 1043 12/05/16 1043 Objective Remarks GENERAL: morbidly obese male, in no acute distress HEAD: Atraumatic. Normocephalic. Skin:decubitus ulcer in gauze EYES: Pupils equal and round. No scleral icterus. No injection or drainage. ENT: No nasal bleeding or discharge. Mucous membranes pink and moist. NECK: Trachea midline. No JVD. CARDIOVASCULAR: Regular rate and rhythm. RESPIRATORY: No accessory muscle use. Clear to auscultation. Breath sounds equal bilaterally. GASTROINTESTINAL: Abdomen soft, non-tender, nondistended. Hepatic and splenic margins not palpable. MUSCULOSKELETAL: Left AKA. NEUROLOGICAL: Awake and alert. Normal speech. Procedures 11/25- S/P flexible cystoscopy with replacement of kyle catheter (Councill catheter) Date of Insertion: Nov 25, 2016 A/P Problem List: (1) UTI (urinary tract infection) ICD Code: N39.0 Status: Acute (2) Chronic pain ICD Code: G89.29 Status: Chronic (3) Type 2 diabetes mellitus ICD Code: E11.9 Status: Chronic (4) Morbidly obese ICD Code: E66.01 Status: Chronic (5) Depression ICD Code: F32.9 Status: Chronic (6) Pressure ulcer ICD Code: L89.90 Status: Chronic (7) Sleep apnea ICD Code: G47.30 Status: Chronic (8) Hypothyroidism ICD Code: E03.9 Status: Chronic Assessment and Plan 12/03: no acute issue , cont current care , monitor for any fever or worsening infection signs 12/04: Decreased Dilaudid to 1 mg continue to taper, patient did not agree with this, he discussion with him as mentioned above, patient declined later on his medication and pulled out his iv access 12/04 : pt refuse to be seen A/P: 25-year-old male patient with a medical history significant for paraplegia, neurogenic bladder, hypertension, chronic recurrent DVT, chronic pain, sleep apnea, CHF who was brought under Felipe act due to threatening staff at his nursing facility. Neurogenic Bladder SEpsis-New fever - fever 101.9, tachycardia source likely UTI- ESBL HYpotension better BP radings- started on Midodrine S/P Tx for UTI - S/p Levaquin 500 mg course 11/22/2016. S/P replacement of kyle catheter by Dr. Meraz- 11/25. On Oxybutynin 5 mg bid blood cultuires- negative so far Ertapenem for 14 days per ID recommendation - Diabetes: Mellitus, insulin requring- needs tighter control- reinforced and encourage - Monitor Accu-Cheks, Continue sliding scale insulin.- some readings in low 200s - Increased Levemir 35 units BID. Continue Aspart 6 units TIDAC. - continue to monitor and adjust - Blood glucose has been high. If not well controlled, we will have to change diet back to Diabetic diet (2200 tom). - non compliant Chronic pain. Home medications baclofen, morphine, Dilaudid 1mg IV for breakthrough pain. - Patient does not appear to be in pain. At this point, we will refrain from increasing IV Dilaudid. - He is on Xanax 2mg Q6hrs PRN, Baclofen 20mg Q6hrs PRN, Morphine 130mg PO Q8hrs, Trazodone 200mg QHS. Morbid obesity: Outpatient general surgery referral needed for possible surgical interventions. Chronic pressure ulcers: Wound care team ff. Documented on admission. Patient turning himself rigorously Sleep apnea, CPAP at night Anxiety and depression: no suicidal ideations- concern is more about of pain medications Was evaluated by psych in the ER, Felipe acted lifted, did not meet inpatient psychiatric and admission criteria. -Continue his outpatient psychiatric care upon discharge. -Continue Home meds trazodone, Wellbutrin. Hyperlipidemia: Continue Lipitor Hypothyroidism: Continue levothyroxine chronic pain - on chronic pain meds- Increase dilaudid t1.5 mg a 4 prn Substance use: tox screen on admission significant for opiates, benzos, cannabinoids Full code. on Xarelto.- Discharge Planning Medically stable to be discharged to SNF once arrangement is done Problem Qualifiers (1) Morbidly obese: Qualified Code: E66.01 - Morbid obesity, unspecified obesity type (2) Pressure ulcer: Shamika Fairchild MD Dec 05, 2016 11:51
[2016-12-05 12:00] VITALS: BP 139/56; PULSE 86; RESP 15; TEMP 97; O2SAT 94
[2016-12-05 16:00] VITALS: BP 123/65; PULSE 88; RESP 16; TEMP 97; O2SAT 94
[2016-12-05] MEDS: HYDROmorphone HCL PF 1 MG/ML VIAL IV PUSH PRN (17:27)
[2016-12-05] MEDS: ERTAPENEM INJ 1,000 MG in SODIUM CHLORIDE 0.9% INJ 100 ML IV SCH (17:28)
[2016-12-05 20:00] VITALS: BP 132/71; PULSE 85; RESP 20; TEMP 97; O2SAT 99
[2016-12-05] MEDS: ZOLPIDEM TARTRATE 10 MG TAB PO SCH (21:00)
[2016-12-05] MEDS: traZODone HCL 100 MG TAB PO SCH (21:00)
[2016-12-05] MEDS: TOLTERODINE TARTRATE 2 MG CAP LA PO SCH (21:03)
[2016-12-05] MEDS: RIVAROXABAN 20 MG TAB PO SCH (21:03)
[2016-12-06] VITALS (7 sets, daily range): BP systolic 100–165; BP diastolic 46–80; PULSE 84–93; RESP 16–20; TEMP 95.8–98.4; O2SAT 92–100
[2016-12-06] MEDS: MORPHINE SULFATE 100 MG CONTROLLED RELEASE TAB PO SCH ×3 (02:26→17:37)
[2016-12-06] MEDS: MORPHINE SULFATE 30 MG CONTROLLED RELEASE TAB PO SCH ×3 (02:27→17:37)
[2016-12-06] MEDS: HYDROmorphone HCL PF 1 MG/ML VIAL IV PUSH PRN ×2 (04:04→12:22)
[2016-12-06] MEDS: INSULIN ASPART SUPPLEMENTAL SCALE SQ SCH ×4 (06:00→21:00)
[2016-12-06] MEDS: MIDODRINE 5 MG TAB PO SCH ×3 (06:00→22:02)
[2016-12-06] MEDS: BACLOFEN 20 MG TAB PO PRN ×2 (06:01→16:42)
[2016-12-06] MEDS: ALPRAZolam 1 MG TAB PO PRN ×2 (06:01→16:42)
[2016-12-06] MEDS: LEVOTHYROXINE SODIUM 50 MCG TAB PO SCH ×2 (06:01→06:03)
[2016-12-06] MEDS: DOCUSATE SODIUM 100 MG CAP PO SCH ×2 (08:31→21:44)
[2016-12-06] MEDS: ATORVASTATIN 40 MG TAB PO SCH (08:31)
[2016-12-06] MEDS: FAMOTIDINE 20 MG TAB PO SCH (08:31)
[2016-12-06] MEDS: ASCORBIC ACID 500 MG TAB PO SCH ×2 (08:31→21:44)
[2016-12-06] MEDS: OXYBUTYNIN CHLORIDE 5 MG TAB PO SCH ×2 (08:32→21:44)
[2016-12-06] MEDS: SODIUM CHLORIDE 0.9% FLUSH 10 ML FLUSH IV FLUSH SCH ×2 (08:32→21:00)
[2016-12-06] MEDS: INSULIN DETEMIR 100 UNITS/ML VIAL SQ SCH ×2 (08:32→21:47)
[2016-12-06] MEDS: NYSTATIN 100,000 U/GM PWD 15 GM BTL TOPICAL SCH ×2 (08:33→21:00)
[2016-12-06] MEDS: POVIDONE IODINE 10% OINT 30 GM TUBE TOPICAL SCH (08:33)
[2016-12-06] MEDS: COLLAGENASE OINT 30 GM TUBE TOPICAL SCH (08:33)
--- NOTE | 2016-12-06 12:26 | HHI.PR ---
Subjective Remarks in no acute distress. afebrile. says that he doesn't want to take IV dilaudid. d/w the RN at the bedside. Objective Vitals Vital Signs Date Time Temp Pulse Resp B/P Pulse Ox O2 Delivery O2 Flow Rate FiO2 12/06/16 09:37 94 21 12/06/16 08:00 96.3 84 16 128/58 92 12/06/16 01:47 99 BiPAP 40 12/06/16 01:47 99 40 12/06/16 00:00 98.4 88 20 136/80 100 12/05/16 20:00 97.0 85 20 132/71 99 12/05/16 18:33 21 12/05/16 16:00 97.0 88 16 123/65 94 I/O 12/05/16 12/05/16 12/05/16 12/06/16 12/06/16 12/06/16 07:00 15:00 23:00 07:00 15:00 23:00 Intake Total 480 ml 480 ml 480 ml 720 ml Output Total 2600 ml 3200 ml 1300 ml Balance -2120 ml -2720 ml 480 ml -580 ml Intake Oral 480 ml 480 ml 480 ml 720 ml Output Urine Total 2600 ml 3200 ml 1300 ml # Bowel Movements 0 0 0 Result Diagram: 12/05/16 1043 12/05/16 1043 Objective Remarks GENERAL: morbidly obese, in no apparent distress. CARDIOVASCULAR: Regular rate and regular rhythm without murmurs, gallops, or rubs. RESPIRATORY: Clear to auscultation. Breath sounds equal bilaterally. No wheezes , rales, or rhonchi. GASTROINTESTINAL: Abdomen soft, non-tender, nondistended. Normal, active bowel sounds MUSCULOSKELETAL: Extremities without clubbing, cyanosis, or edema. NEURO: Alert & Oriented x4 to person, place, time, situation. Moves all ext x4 Procedures 11/25- S/P flexible cystoscopy with replacement of kyle catheter (Councill catheter) Medications and IVs Current Medications Insulin Human Regular (NovoLIN R INJ) 10 units ONCE ONCE SQ Last administered on 11/10/16t 21:05; Start 11/10/16 at 16:00; Stop 11/10/16 at 16:01; Status DC Sodium Chloride (NS Flush) 2 ml UNSCH PRN IV FLUSH FLUSH AFTER USING IV ACCESS Last administered on 11/28/16 07:09; Start 11/10/16 at 21:45 Sodium Chloride (NS Flush) 2 ml BID IV FLUSH Last administered on 12/06/16 08: 32; Start 11/11/16 at 09:00 Naloxone HCl (Narcan Inj) 0.4 mg UNSCH PRN IV SEE LABEL COMMENTS; Start at 21:45 Albuterol Sulfate (Albuterol Neb) 2.5 mg Q6HR ALT NEB PRN NEB SHORTNESS OF BREATH; Start 11/11/16 at 02:00 Alprazolam (Xanax) 2 mg Q6HR PRN PO BELÉN Last administered on 12/06/16 06:01; Start 11/11/16 at 02:00 Ascorbic Acid (Vitamin C) 500 mg BID PO Last administered on 12/06/16 08:31; Start 11/11/16 at 09:00 Atorvastatin Calcium (Lipitor) 40 mg DAILY PO Last administered on 12/06/16 08 :31; Start 11/11/16 at 09:00 Baclofen (Lioresal) 20 mg Q6HR PRN PO MUSCLE SPASM Last administered on 06:01; Start 11/11/16 at 02:00 Bupropion HCl (Wellbutrin Xl 24 Hr) 150 mg DAILY PO ; Start 11/11/16 at 09:00; Status UNV Bupropion HCl (Wellbutrin Sr) 150 mg BID PO Last administered on 11/24/16 10: 23; Start 11/11/16 at 09:00; Stop 11/24/16 at 14:19; Status DC Chlorhexidine Gluconate (Peridex 0.12% Liq) 10 ml BID PRN SWISH-SPIT peridontitis; Start 11/11/16 at 02:00 Clotrimazole (Lotrimin 1% Cream) 1 applic DAILY PRN TOPICAL RASH IN SKIN FOLDS Last administered on 12/05/16 11:50; Start 11/11/16 at 02:00 Collagenase (Santyl Oint) 1 applic Q8HR TOPICAL Last administered on 11/23/16 12:12; Start 11/11/16 at 06:00; Stop 11/23/16 at 12:34; Status DC Escitalopram Oxalate (Lexapro) 20 mg HS PO Last administered on 11/13/16 21:18 ; Start 11/11/16 at 21:00; Stop 11/14/16 at 15:43; Status DC Furosemide (Lasix) 40 mg BID PO Last administered on 11/28/16 08:34; Start at 09:00; Status Hold Insulin Detemir (Levemir Inj) 55 units HS SQ Last administered on 11/19/16 21: 43; Start 11/11/16 at 21:00; Stop 11/19/16 at 22:31; Status DC Levothyroxine Sodium (Synthroid) 50 mcg DAILY@06 PO Last administered on 06:01; Start 11/11/16 at 06:00 Morphine Sulfate (Oramorph Sr) 30 mg Q8H PO Last administered on 12/06/16 11: 09; Start 11/11/16 at 02:00 Morphine Sulfate (Oramorph Sr) 100 mg Q8H PO Last administered on 12/06/16 11: 09; Start 11/11/16 at 02:00 Potassium Chloride (KCl) 20 meq DAILY PO Last administered on 11/16/16 08:47; Start 11/11/16 at 09:00; Status Hold Promethazine HCl (Phenergan) 25 mg Q8HR PRN PO Nausea/Vomiting; Start 11/11/16 at 02:00 Famotidine (Pepcid) 20 mg DAILY PO Last administered on 12/06/16 08:31; Start 11/11/16 at 09:00 Rivaroxaban (Xarelto) 20 mg HS PO Last administered on 12/05/16 21:03; Start 11/11/16 at 21:00 Simethicone (Mylicon Chew) 160 mg ACHS PRN CHEW GAS RETENTION Last administered on 12/01/16 12:46; Start 11/11/16 at 02:00 Trazodone HCl (Desyrel) 200 mg HS PO Last administered on 11/13/16 21:17; Start 11/11/16 at 21:00; Stop 11/14/16 at 10:19; Status DC Zolpidem Tartrate (Ambien) 10 mg HS PO Last administered on 12/04/16 20:48; Start 11/11/16 at 21:00 Tolterodine Tartrate (Detrol La) 2 mg HS PO Last administered on 12/05/16 21: 03; Start 11/11/16 at 21:00 Oxycodone HCl (Roxicodone) 30 mg Q4H PRN PO PAIN Last administered on 09:01; Start 11/11/16 at 04:00; Stop 12/04/16 at 11:36; Status DC Hydromorphone HCl 0.5 mg 0.5 mg Q4H PRN IV PUSH breakthrough pain Last administered on 11/16/16 16:41; Start 11/11/16 at 02:15; Stop 11/16/16 at 22:41; Status DC Levofloxacin/ Dextrose (Levaquin 750 Mg Premix Inj) 150 ml @ 100 mls/hr Q24H IV Last administered on 11/14/16 03:44; Start 11/11/16 at 03:00; Stop 11/14/16 at 10:19; Status DC Bupropion HCl (Wellbutrin Sr 12 Hr) 150 mg DAILY PO ; Start 11/11/16 at 09:00; Status Cancel Bupropion HCl (Wellbutrin Sr) 150 mg DAILY PO Last administered on 11/11/16 12 :45; Start 11/11/16 at 09:00; Stop 11/12/16 at 07:22; Status DC Ondansetron HCl (Zofran Inj) 4 mg Q6HR PRN IV PUSH NAUSEA Last administered on 12/03/16 08:06; Start 11/11/16 at 03:15 Dextrose (D50w (Vial) Inj) 25 ml UNSCH PRN IV PUSH HYPOGLYCEMIA-SEE COMMENTS; Start 11/12/16 at 11:45 Glucagon (Glucagon Inj) 1 mg UNSCH PRN OTHER HYPOGLYCEMIA-SEE COMMENTS; Start 11/12/16 at 11:45 Insulin Aspart (NovoLOG SUPPLEMENTAL SCALE) 1 ACHS SLIDING SCALE SQ Last administered on 12/06/16 06:00; Start 11/12/16 at 16:00 Docusate Sodium (Colace) 100 mg BID PO Last administered on 12/06/16 08:31; Start 11/13/16 at 21:00 Magnesium Citrate (Citroma Liq) 600 ml Q24H PRN PO CONSTIPATION Last administered on 11/18/16 09:38; Start 11/13/16 at 14:45 Nystatin (Mycostatin Powder) 1 applic BID TOPICAL Last administered on 08:33; Start 11/13/16 at 21:00 Levofloxacin (Levaquin) 500 mg DAILY@11 PO Last administered on 11/21/16 10:53 ; Start 11/15/16 at 11:00; Stop 11/22/16 at 10:59; Status DC Trazodone HCl (Desyrel) 100 mg HS PO Last administered on 11/16/16 20:32; Start 11/14/16 at 21:00; Stop 11/16/16 at 22:40; Status DC Trazodone HCl (Desyrel) 200 mg HS PO Last administered on 12/04/16 20:48; Start 11/17/16 at 21:00 Hydromorphone HCl (Dilaudid Pf Inj) 1 mg Q4H PRN IV PUSH breakthrough pain Last administered on 11/29/16 10:31; Start 11/17/16 at 02:15; Stop 11/29/16 at 12:37; Status DC Trazodone HCl (Desyrel) 100 mg ONCE ONCE PO Last administered on 11/16/16 23: 54; Start 11/16/16 at 22:45; Stop 11/16/16 at 22:46; Status DC Acetaminophen (Tylenol) 650 mg Q4H PRN PO Headache, fever Last administered on 12/01/16 04:16; Start 11/18/16 at 17:30 Insulin Detemir (Levemir Inj) 30 units BID SQ Last administered on 11/20/16 09: 20; Start 11/20/16 at 09:00; Stop 11/20/16 at 11:16; Status DC Insulin Aspart (NovoLOG INJ) 6 units TIDAC SQ Last administered on 11/30/16 11 :10; Start 11/20/16 at 08:00; Stop 11/30/16 at 15:15; Status DC Insulin Detemir (Levemir Inj) 35 units BID SQ Last administered on 11/30/16 10 :40; Start 11/20/16 at 21:00; Stop 11/30/16 at 15:16; Status DC Collagenase (Santyl Oint) 1 applic DAILY TOPICAL Last administered on 08:33; Start 11/23/16 at 12:45 Povidone Iodine (Betadine 10% Oint) 1 pkt DAILY TOPICAL ; Start 11/23/16 at 12: 45; Stop 11/23/16 at 18:32; Status DC Povidone Iodine (Betadine 10% Oint) 1 applic DAILY TOPICAL Last administered on 12/06/16 08:33; Start 11/23/16 at 18:32 Insulin Human Regular (NovoLIN R INJ) 10 units ONCE ONCE IV PUSH Last administered on 11/23/16 22:28; Start 11/23/16 at 20:45; Stop 11/23/16 at 20:46 ; Status DC Bupropion HCl 200 mg 200 mg BID PO Last administered on 11/29/16 09:11; Start 11/24/16 at 21:00; Status Hold Lactated Ringer's 1,000 ml @ 30 mls/hr Q24H PRN IV SEE LABEL COMMENTS; Start at 08:30; Stop 11/28/16 at 08:31; Status DC Sodium Chloride (NS 500 ml Inj) 500 ml @ 30 mls/hr [id number] PRN IV SEE LABEL COMMENTS; Start 11/25/16 at 08:30; Stop 11/28/16 at 08:31; Status DC Metoprolol Tartrate (Lopressor) 25 mg LOAN COORDINATOR PRN PO SEE LABEL COMMENTS; Start 11/25/16 at 08:30; Stop 11/28/16 at 08:31; Status DC Povidone Iodine (Betadine 5% Antisepsis Kit) 1 applic LOAN COORDINATOR PRN EACH NARE SEE LABEL COMMENTS; Start 11/25/16 at 08:30; Stop 11/28/16 at 08:31; Status DC Chlorhexidine Gluconate (Chlorhexidine 2% Cloth) 3 pack LOAN COORDINATOR PRN TOPICAL SEE LABEL COMMENTS; Start 11/25/16 at 08:30; Stop 11/28/16 at 08:31; Status DC Insulin Human Regular (NovoLIN R INJ) See Protocol Table ... LOAN COORDINATOR PRN SQ SEE PROTOCOL TABLE; Start 11/25/16 at 08:30; Stop 11/28/16 at 08:31; Status DC Oxybutynin Chloride (Ditropan) 5 mg Q12HR PO Last administered on 12/06/16 08: 32; Start 11/28/16 at 14:00 Hydromorphone HCl (Dilaudid Pf Inj) 1.5 mg Q4H PRN IV PUSH breakthrough pain Last administered on 12/04/16 11:21; Start 11/29/16 at 14:15; Stop 12/04/16 at 11:36; Status DC Miscellaneous Medication (ASP Crit: Doc allergy to Penicillin/ Cephalosp) 1 UNSCH X1 PRN .XX PHARMACY DOCUMENTATION; Start 11/29/16 at 15:30; Stop at 15:29; Status DC Miscellaneous Medication 1 1 UNSCH X1 PRN XX PHARMACY DOCUMENTATION; Start at 15:30; Stop 11/30/16 at 15:29; Status DC Meropenem/Sodium Chloride (Merrem Inj/NS Inj) 100 ml @ 200 mls/hr Q8H IV Last administered on 12/01/16 09:21; Start 11/29/16 at 16:00; Stop 12/01/16 at 14:34 ; Status DC Miscellaneous Medication 1 1 UNSCH X1 PRN XX PHARMACY DOCUMENTATION; Start at 15:30; Stop 11/30/16 at 15:29; Status DC Linezolid 300 ml @ 300 mls/hr Q12H IV Last administered on 12/01/16 04:12; Start 11/29/16 at 16:00; Stop 12/01/16 at 14:34; Status DC Fluconazole/ Sodium Chloride (Diflucan 400 Mg Premix Bag) 200 ml @ 100 mls/hr Q24H IV Last administered on 11/30/16 18:42; Start 11/29/16 at 18:00; Stop at 14:34; Status DC Insulin Aspart (NovoLOG INJ) 12 units TIDAC SQ Last administered on 11/30/16 18:43; Start 11/30/16 at 17:00; Status Hold Insulin Detemir (Levemir Inj) 40 units BID SQ Last administered on 12/01/16 09 :23; Start 11/30/16 at 21:00; Stop 12/01/16 at 17:30; Status DC Midodrine (Proamatine) 10 mg Q8HR PO Last administered on 12/05/16 17:27; Start 11/30/16 at 21:00 Miscellaneous Medication (ASP Crit: Doc ESBL, MDR A baumannii or P aer) 1 UNSCH X1 PRN .XX PHARMACY DOCUMENTATION; Start 12/01/16 at 14:45; Stop 12/02/16 at 14 :44; Status DC Miscellaneous Medication 1 1 UNSCH X1 PRN XX PHARMACY DOCUMENTATION; Start at 14:45; Stop 12/02/16 at 14:44; Status DC Ertapenem/Sodium Chloride (INVanz INJ/NS Inj) 100 ml @ 200 mls/hr Q24H IV Last administered on 12/05/16 17:28; Start 12/01/16 at 16:00 Insulin Detemir 20 units 20 units BID SQ Last administered on 12/06/16 08:32; Start 12/01/16 at 21:00 Sodium Chloride (NS 1000 ml Inj) 1,000 ml @ 1,000 mls/hr Q1H IV Last administered on 12/02/16 01:00; Start 12/02/16 at 00:00; Stop 12/02/16 at 01:59 ; Status DC Albumin Human (Albumin 5% Inj) 25 gm ONCE ONCE IV Last administered on 00:30; Start 12/02/16 at 00:00; Stop 12/02/16 at 00:07; Status DC Hydromorphone HCl (Dilaudid Pf Inj) 1 mg Q4H PRN IV PUSH breakthrough pain; Start 12/04/16 at 11:45; Stop 12/04/16 at 11:45; Status DC Hydromorphone HCl (Dilaudid Pf Inj) 1 mg Q4H PRN IV PUSH breakthrough pain Last administered on 12/06/16 04:04; Start 12/04/16 at 14:15 Date of Insertion: Nov 25, 2016 A/P Assessment and Plan 25-year-old male patient with a medical history significant for paraplegia, neurogenic bladder, hypertension, chronic recurrent DVT, chronic pain, sleep apnea, CHF who was brought under Felipe act due to threatening staff at his nursing facility. Neurogenic Bladder Sepsis- source likely UTI- ESBL hypotension better BP radings- started on Midodrine S/P Tx for UTI - S/p Levaquin 500 mg course 11/22/2016. S/P replacement of kyle catheter by Dr. Meraz- 11/25. On Oxybutynin 5 mg bid blood cultures- negative so far Ertapenem for 14 days per ID recommendation - Diabetes: Mellitus, insulin requring- needs tighter control- reinforced and encourage - Monitor Accu-Cheks, Continue sliding scale insulin.- some readings in low 200s - Increased Levemir 20 units BID. - continue to monitor and adjust Chronic pain. Home medications baclofen, morphine,oxycodone. - He is on Xanax 2mg Q6hrs PRN, Baclofen 20mg Q6hrs PRN, Morphine 130mg PO Q8hrs, Trazodone 200mg QHS. -will dc IV dilaudid and restart his home roxicodone Morbid obesity: Outpatient general surgery referral needed for possible surgical interventions. Chronic pressure ulcers: Wound care team ff. Documented on admission. Patient turning himself rigorously Sleep apnea, CPAP at night Anxiety and depression: no suicidal ideations- concern is more about of pain medications Was evaluated by psych in the ER, Felipe acted lifted, did not meet inpatient psychiatric and admission criteria. -Continue his outpatient psychiatric care upon discharge. -Continue Home meds trazodone, Wellbutrin. Hyperlipidemia: Continue Lipitor Hypothyroidism: Continue levothyroxine chronic pain - on chronic pain meds- as noted above. Substance use: tox screen on admission significant for opiates, benzos, cannabinoids Full code. on Xarelto.- Discharge Planning no accepting facility yet. Juan Diego Zambrano MD Dec 06, 2016 12:26 Juan Diego Zambrano MD Dec 06, 2016 12:26
[2016-12-06] MEDS: ERTAPENEM INJ 1,000 MG in SODIUM CHLORIDE 0.9% INJ 100 ML IV SCH (16:43)
[2016-12-06] MEDS: ONDANSETRON HCL 4 MG/2 ML VIAL IV PUSH PRN (17:36)
[2016-12-06] MEDS: RIVAROXABAN 20 MG TAB PO SCH (21:44)
[2016-12-06] MEDS: ZOLPIDEM TARTRATE 10 MG TAB PO SCH (21:44)
[2016-12-06] MEDS: traZODone HCL 100 MG TAB PO SCH (21:44)
[2016-12-06] MEDS: TOLTERODINE TARTRATE 2 MG CAP LA PO SCH (21:45)
[2016-12-07] VITALS: BP 133/62; PULSE 82; RESP 20; TEMP 96.3; O2SAT 100
[2016-12-07] MEDS: MORPHINE SULFATE 100 MG CONTROLLED RELEASE TAB PO SCH ×3 (02:54→17:01)
[2016-12-07] MEDS: MORPHINE SULFATE 30 MG CONTROLLED RELEASE TAB PO SCH ×3 (02:54→17:01)
[2016-12-07] MEDS: MIDODRINE 5 MG TAB PO SCH ×3 (06:41→22:14)
[2016-12-07] MEDS: INSULIN ASPART SUPPLEMENTAL SCALE SQ SCH ×4 (06:44→21:00)
[2016-12-07] MEDS: ASCORBIC ACID 500 MG TAB PO SCH ×2 (09:00→22:13)
[2016-12-07] MEDS: COLLAGENASE OINT 30 GM TUBE TOPICAL SCH (09:00)
[2016-12-07] MEDS: NYSTATIN 100,000 U/GM PWD 15 GM BTL TOPICAL SCH ×2 (09:00→21:00)
[2016-12-07] MEDS: DOCUSATE SODIUM 100 MG CAP PO SCH ×2 (09:00→22:14)
[2016-12-07] MEDS: ATORVASTATIN 40 MG TAB PO SCH (09:00)
[2016-12-07] MEDS: OXYBUTYNIN CHLORIDE 5 MG TAB PO SCH ×2 (09:00→22:14)
[2016-12-07] MEDS: INSULIN DETEMIR 100 UNITS/ML VIAL SQ SCH ×2 (09:00→21:00)
[2016-12-07] MEDS: POVIDONE IODINE 10% OINT 30 GM TUBE TOPICAL SCH (09:00)
[2016-12-07] MEDS: FAMOTIDINE 20 MG TAB PO SCH (09:00)
[2016-12-07] MEDS: SODIUM CHLORIDE 0.9% FLUSH 10 ML FLUSH IV FLUSH SCH ×2 (09:00→21:00)
--- NOTE | 2016-12-07 10:58 | HHI.PR ---
Subjective Remarks in no acute distress. no fever. Objective Vitals Vital Signs Date Time Temp Pulse Resp B/P Pulse Ox O2 Delivery O2 Flow Rate FiO2 12/07/16 00:00 96.3 82 20 133/62 100 12/06/16 20:00 96.6 87 20 100/46 94 12/06/16 16:00 96.6 88 16 165/64 94 12/06/16 12:00 95.8 93 16 127/65 96 I/O 12/06/16 12/06/16 12/06/16 12/07/16 12/07/16 12/07/16 07:00 15:00 23:00 07:00 15:00 23:00 Intake Total 720 ml 960 ml 1073 ml Output Total 1300 ml 2625 ml 900 ml 1200 ml Balance -580 ml -2625 ml 60 ml -127 ml Intake Oral 720 ml 960 ml 960 ml IV Total 113 ml Output Urine Total 1300 ml 2625 ml 900 ml 1200 ml # Bowel Movements 0 Result Diagram: 12/05/16 1043 12/05/16 1043 Objective Remarks GENERAL: morbidly obese, in no apparent distress. CARDIOVASCULAR: Regular rate and regular rhythm without murmurs, gallops, or rubs. RESPIRATORY: Clear to auscultation. Breath sounds equal bilaterally. No wheezes , rales, or rhonchi. GASTROINTESTINAL: Abdomen soft, non-tender, nondistended. Normal, active bowel sounds MUSCULOSKELETAL: Extremities without clubbing, cyanosis, or edema. NEURO: Alert & Oriented x4 to person, place, time, situation. Moves all ext x4 Procedures 11/25- S/P flexible cystoscopy with replacement of kyle catheter (Councill catheter) Medications and IVs Current Medications Insulin Human Regular (NovoLIN R INJ) 10 units ONCE ONCE SQ Last administered on 11/10/16 21:05; Start 11/10/16 at 16:00; Stop 11/10/16 at 16:01; Status DC Sodium Chloride (NS Flush) 2 ml UNSCH PRN IV FLUSH FLUSH AFTER USING IV ACCESS Last administered on 11/28/16 07:09; Start 11/10/16 at 21:45 Sodium Chloride (NS Flush) 2 ml BID IV FLUSH Last administered on 12/06/16 21: 00; Start 11/11/16 at 09:00 Naloxone HCl (Narcan Inj) 0.4 mg UNSCH PRN IV SEE LABEL COMMENTS; Start at 21:45 Albuterol Sulfate (Albuterol Neb) 2.5 mg Q6HR ALT NEB PRN NEB SHORTNESS OF BREATH; Start 11/11/16 at 02:00 Alprazolam (Xanax) 2 mg Q6HR PRN PO BELÉN Last administered on 12/06/16 16:42; Start 11/11/16 at 02:00 Ascorbic Acid (Vitamin C) 500 mg BID PO Last administered on 12/06/16 21:44; Start 11/11/16 at 09:00 Atorvastatin Calcium (Lipitor) 40 mg DAILY PO Last administered on 12/06/16 08 :31; Start 11/11/16 at 09:00 Baclofen (Lioresal) 20 mg Q6HR PRN PO MUSCLE SPASM Last administered on 16:42; Start 11/11/16 at 02:00 Bupropion HCl (Wellbutrin Xl 24 Hr) 150 mg DAILY PO ; Start 11/11/16 at 09:00; Status UNV Bupropion HCl (Wellbutrin Sr) 150 mg BID PO Last administered on 11/24/16 10: 23; Start 11/11/16 at 09:00; Stop 11/24/16 at 14:19; Status DC Chlorhexidine Gluconate (Peridex 0.12% Liq) 10 ml BID PRN SWISH-SPIT peridontitis; Start 11/11/16 at 02:00 Clotrimazole (Lotrimin 1% Cream) 1 applic DAILY PRN TOPICAL RASH IN SKIN FOLDS Last administered on 12/05/16 11:50; Start 11/11/16 at 02:00 Collagenase (Santyl Oint) 1 applic Q8HR TOPICAL Last administered on 11/23/16 12:12; Start 11/11/16 at 06:00; Stop 11/23/16 at 12:34; Status DC Escitalopram Oxalate (Lexapro) 20 mg HS PO Last administered on 11/13/16 21:18 ; Start 11/11/16 at 21:00; Stop 11/14/16 at 15:43; Status DC Furosemide (Lasix) 40 mg BID PO Last administered on 11/28/16 08:34; Start at 09:00; Status Hold Insulin Detemir (Levemir Inj) 55 units HS SQ Last administered on 11/19/16 21: 43; Start 11/11/16 at 21:00; Stop 11/19/16 at 22:31; Status DC Levothyroxine Sodium (Synthroid) 50 mcg DAILY@06 PO Last administered on 06:01; Start 11/11/16 at 06:00 Morphine Sulfate (Oramorph Sr) 30 mg Q8H PO Last administered on 12/07/16 02: 54; Start 11/11/16 at 02:00 Morphine Sulfate (Oramorph Sr) 100 mg Q8H PO Last administered on 12/07/16 02: 54; Start 11/11/16 at 02:00 Potassium Chloride (KCl) 20 meq DAILY PO Last administered on 11/16/16 08:47; Start 11/11/16 at 09:00; Status Hold Promethazine HCl (Phenergan) 25 mg Q8HR PRN PO Nausea/Vomiting; Start 11/11/16 at 02:00 Famotidine (Pepcid) 20 mg DAILY PO Last administered on 12/06/16 08:31; Start 11/11/16 at 09:00 Rivaroxaban (Xarelto) 20 mg HS PO Last administered on 12/06/16 21:44; Start 11/11/16 at 21:00 Simethicone (Mylicon Chew) 160 mg ACHS PRN CHEW GAS RETENTION Last administered on 12/01/16 12:46; Start 11/11/16 at 02:00 Trazodone HCl (Desyrel) 200 mg HS PO Last administered on 11/13/16 21:17; Start 11/11/16 at 21:00; Stop 11/14/16 at 10:19; Status DC Zolpidem Tartrate (Ambien) 10 mg HS PO Last administered on 12/06/16 21:44; Start 11/11/16 at 21:00 Tolterodine Tartrate (Detrol La) 2 mg HS PO Last administered on 12/06/16 21: 45; Start 11/11/16 at 21:00 Oxycodone HCl (Roxicodone) 30 mg Q4H PRN PO PAIN Last administered on 09:01; Start 11/11/16 at 04:00; Stop 12/04/16 at 11:36; Status DC Hydromorphone HCl 0.5 mg 0.5 mg Q4H PRN IV PUSH breakthrough pain Last administered on 11/16/16 16:41; Start 11/11/16 at 02:15; Stop 11/16/16 at 22:41; Status DC Levofloxacin/ Dextrose (Levaquin 750 Mg Premix Inj) 150 ml @ 100 mls/hr Q24H IV Last administered on 11/14/16 03:44; Start 11/11/16 at 03:00; Stop 11/14/16 at 10:19; Status DC Bupropion HCl (Wellbutrin Sr 12 Hr) 150 mg DAILY PO ; Start 11/11/16 at 09:00; Status Cancel Bupropion HCl (Wellbutrin Sr) 150 mg DAILY PO Last administered on 11/11/16 12 :45; Start 11/11/16 at 09:00; Stop 11/12/16 at 07:22; Status DC Ondansetron HCl (Zofran Inj) 4 mg Q6HR PRN IV PUSH NAUSEA Last administered on 12/06/16 17:36; Start 11/11/16 at 03:15 Dextrose (D50w (Vial) Inj) 25 ml UNSCH PRN IV PUSH HYPOGLYCEMIA-SEE COMMENTS; Start 11/12/16 at 11:45 Glucagon (Glucagon Inj) 1 mg UNSCH PRN OTHER HYPOGLYCEMIA-SEE COMMENTS; Start 11/12/16 at 11:45 Insulin Aspart (NovoLOG SUPPLEMENTAL SCALE) 1 ACHS SLIDING SCALE SQ Last administered on 12/06/16 21:00; Start 11/12/16 at 16:00 Docusate Sodium (Colace) 100 mg BID PO Last administered on 12/06/16 21:44; Start 11/13/16 at 21:00 Magnesium Citrate (Citroma Liq) 600 ml Q24H PRN PO CONSTIPATION Last administered on 11/18/16 09:38; Start 11/13/16 at 14:45 Nystatin (Mycostatin Powder) 1 applic BID TOPICAL Last administered on 08:33; Start 11/13/16 at 21:00 Levofloxacin (Levaquin) 500 mg DAILY@11 PO Last administered on 11/21/16 10:53 ; Start 11/15/16 at 11:00; Stop 11/22/16 at 10:59; Status DC Trazodone HCl (Desyrel) 100 mg HS PO Last administered on 11/16/16 20:32; Start 11/14/16 at 21:00; Stop 11/16/16 at 22:40; Status DC Trazodone HCl (Desyrel) 200 mg HS PO Last administered on 12/06/16 21:44; Start 11/17/16 at 21:00 Hydromorphone HCl (Dilaudid Pf Inj) 1 mg Q4H PRN IV PUSH breakthrough pain Last administered on 11/29/16 10:31; Start 11/17/16 at 02:15; Stop 11/29/16 at 12:37; Status DC Trazodone HCl (Desyrel) 100 mg ONCE ONCE PO Last administered on 11/16/16 23: 54; Start 11/16/16 at 22:45; Stop 11/16/16 at 22:46; Status DC Acetaminophen (Tylenol) 650 mg Q4H PRN PO Headache, fever Last administered on 12/01/16 04:16; Start 11/18/16 at 17:30 Insulin Detemir (Levemir Inj) 30 units BID SQ Last administered on 11/20/16 09: 20; Start 11/20/16 at 09:00; Stop 11/20/16 at 11:16; Status DC Insulin Aspart (NovoLOG INJ) 6 units TIDAC SQ Last administered on 11/30/16 11 :10; Start 11/20/16 at 08:00; Stop 11/30/16 at 15:15; Status DC Insulin Detemir (Levemir Inj) 35 units BID SQ Last administered on 11/30/16 10 :40; Start 11/20/16 at 21:00; Stop 11/30/16 at 15:16; Status DC Collagenase (Santyl Oint) 1 applic DAILY TOPICAL Last administered on 08:33; Start 11/23/16 at 12:45 Povidone Iodine (Betadine 10% Oint) 1 pkt DAILY TOPICAL ; Start 11/23/16 at 12: 45; Stop 11/23/16 at 18:32; Status DC Povidone Iodine (Betadine 10% Oint) 1 applic DAILY TOPICAL Last administered on 12/06/16 08:33; Start 11/23/16 at 18:32 Insulin Human Regular (NovoLIN R INJ) 10 units ONCE ONCE IV PUSH Last administered on 11/23/16 22:28; Start 11/23/16 at 20:45; Stop 11/23/16 at 20:46 ; Status DC Bupropion HCl 200 mg 200 mg BID PO Last administered on 11/29/16 09:11; Start 11/24/16 at 21:00; Status Hold Lactated Ringer's 1,000 ml @ 30 mls/hr Q24H PRN IV SEE LABEL COMMENTS; Start at 08:30; Stop 11/28/16 at 08:31; Status DC Sodium Chloride (NS 500 ml Inj) 500 ml @ 30 mls/hr [id number] PRN IV SEE LABEL COMMENTS; Start 11/25/16 at 08:30; Stop 11/28/16 at 08:31; Status DC Metoprolol Tartrate (Lopressor) 25 mg STREETSWEEPER OPERATOR PRN PO SEE LABEL COMMENTS; Start 11/25/16 at 08:30; Stop 11/28/16 at 08:31; Status DC Povidone Iodine (Betadine 5% Antisepsis Kit) 1 applic STREETSWEEPER OPERATOR PRN EACH NARE SEE LABEL COMMENTS; Start 11/25/16 at 08:30; Stop 11/28/16 at 08:31; Status DC Chlorhexidine Gluconate (Chlorhexidine 2% Cloth) 3 pack STREETSWEEPER OPERATOR PRN TOPICAL SEE LABEL COMMENTS; Start 11/25/16 at 08:30; Stop 11/28/16 at 08:31; Status DC Insulin Human Regular (NovoLIN R INJ) See Protocol Table ... STREETSWEEPER OPERATOR PRN SQ SEE PROTOCOL TABLE; Start 11/25/16 at 08:30; Stop 11/28/16 at 08:31; Status DC Oxybutynin Chloride (Ditropan) 5 mg Q12HR PO Last administered on 12/06/16 21: 44; Start 11/28/16 at 14:00 Hydromorphone HCl (Dilaudid Pf Inj) 1.5 mg Q4H PRN IV PUSH breakthrough pain Last administered on 12/04/16 11:21; Start 11/29/16 at 14:15; Stop 12/04/16 at 11:36; Status DC Miscellaneous Medication (ASP Crit: Doc allergy to Penicillin/ Cephalosp) 1 UNSCH X1 PRN .XX PHARMACY DOCUMENTATION; Start 11/29/16 at 15:30; Stop at 15:29; Status DC Miscellaneous Medication 1 1 UNSCH X1 PRN XX PHARMACY DOCUMENTATION; Start at 15:30; Stop 11/30/16 at 15:29; Status DC Meropenem/Sodium Chloride (Merrem Inj/NS Inj) 100 ml @ 200 mls/hr Q8H IV Last administered on 12/01/16 09:21; Start 11/29/16 at 16:00; Stop 12/01/16 at 14:34 ; Status DC Miscellaneous Medication 1 1 UNSCH X1 PRN XX PHARMACY DOCUMENTATION; Start at 15:30; Stop 11/30/16 at 15:29; Status DC Linezolid 300 ml @ 300 mls/hr Q12H IV Last administered on 12/01/16 04:12; Start 11/29/16 at 16:00; Stop 12/01/16 at 14:34; Status DC Fluconazole/ Sodium Chloride (Diflucan 400 Mg Premix Bag) 200 ml @ 100 mls/hr Q24H IV Last administered on 11/30/16 18:42; Start 11/29/16 at 18:00; Stop at 14:34; Status DC Insulin Aspart (NovoLOG INJ) 12 units TIDAC SQ Last administered on 11/30/16 18:43; Start 11/30/16 at 17:00; Status Hold Insulin Detemir (Levemir Inj) 40 units BID SQ Last administered on 12/01/16 09 :23; Start 11/30/16 at 21:00; Stop 12/01/16 at 17:30; Status DC Midodrine (Proamatine) 10 mg Q8HR PO Last administered on 12/07/16 06:41; Start 11/30/16 at 21:00 Miscellaneous Medication (ASP Crit: Doc ESBL, MDR A baumannii or P aer) 1 UNSCH X1 PRN .XX PHARMACY DOCUMENTATION; Start 12/01/16 at 14:45; Stop 12/02/16 at 14 :44; Status DC Miscellaneous Medication 1 1 UNSCH X1 PRN XX PHARMACY DOCUMENTATION; Start at 14:45; Stop 12/02/16 at 14:44; Status DC Ertapenem/Sodium Chloride (INVanz INJ/NS Inj) 100 ml @ 200 mls/hr Q24H IV Last administered on 12/06/16 16:43; Start 12/01/16 at 16:00 Insulin Detemir 20 units 20 units BID SQ Last administered on 12/06/16 21:47; Start 12/01/16 at 21:00 Sodium Chloride (NS 1000 ml Inj) 1,000 ml @ 1,000 mls/hr Q1H IV Last administered on 12/02/16 01:00; Start 12/02/16 at 00:00; Stop 12/02/16 at 01:59 ; Status DC Albumin Human (Albumin 5% Inj) 25 gm ONCE ONCE IV Last administered on 00:30; Start 12/02/16 at 00:00; Stop 12/02/16 at 00:07; Status DC Hydromorphone HCl (Dilaudid Pf Inj) 1 mg Q4H PRN IV PUSH breakthrough pain; Start 12/04/16 at 11:45; Stop 12/04/16 at 11:45; Status DC Hydromorphone HCl (Dilaudid Pf Inj) 1 mg Q4H PRN IV PUSH breakthrough pain Last administered on 12/06/16 12:22; Start 12/04/16 at 14:15; Stop 12/06/16 at 12:32; Status DC Oxycodone HCl (Roxicodone) 30 mg Q4H PRN PO BREAKTHROUGH PAIN Last administered on 12/06/16 16:42; Start 12/06/16 at 12:30 Date of Insertion: Nov 25, 2016 A/P Assessment and Plan 25-year-old male patient with a medical history significant for paraplegia, neurogenic bladder, hypertension, chronic recurrent DVT, chronic pain, sleep apnea, CHF who was brought under Felipe act due to threatening staff at his nursing facility. Neurogenic Bladder Sepsis- source likely UTI- ESBL hypotension better BP readings- started on Midodrine S/P Tx for UTI - S/p Levaquin 500 mg course 11/22/2016. S/P replacement of kyle catheter by Dr. Meraz- 11/25. On Oxybutynin 5 mg bid blood cultures- negative so far Ertapenem for 14 days per ID recommendation - Diabetes: Mellitus, insulin requiring- - reinforced and encourage - Monitor Accu-Cheks, Continue sliding scale insulin.- - on Levemir 20 units BID. - continue to monitor and adjust Chronic pain. Home medications baclofen, morphine,oxycodone. -dc'ed IV dilaudid and restarted his home roxicodone- continue Oramorph. Morbid obesity: Outpatient general surgery referral needed for possible surgical interventions. Chronic pressure ulcers: Wound care team ff. Documented on admission. Patient turning himself rigorously Sleep apnea, CPAP at night Anxiety and depression: no suicidal ideations- concern is more about of pain medications Was evaluated by psych in the ER, Felipe acted lifted, did not meet inpatient psychiatric and admission criteria. -Continue his outpatient psychiatric care upon discharge. -Continue Home meds trazodone, Wellbutrin. Hyperlipidemia: Continue Lipitor Hypothyroidism: Continue levothyroxine chronic pain - on chronic pain meds- as noted above. Substance use: tox screen on admission significant for opiates, benzos, cannabinoids Full code. on Xarelto.- Discharge Planning no accepting facility yet. Juan Diego Zambrano MD Dec 07, 2016 10:58
[2016-12-07] MEDS: ERTAPENEM INJ 1,000 MG in SODIUM CHLORIDE 0.9% INJ 100 ML IV SCH (17:00)
[2016-12-07 20:00] VITALS: BP 128/59; PULSE 72; RESP 17; TEMP 96.6; O2SAT 100
[2016-12-07 20:17] VITALS: O2SAT 99
[2016-12-07] MEDS: traZODone HCL 100 MG TAB PO SCH (22:13)
[2016-12-07] MEDS: ZOLPIDEM TARTRATE 10 MG TAB PO SCH (22:14)
[2016-12-07] MEDS: TOLTERODINE TARTRATE 2 MG CAP LA PO SCH (22:14)
[2016-12-07] MEDS: RIVAROXABAN 20 MG TAB PO SCH (22:14)
[2016-12-08] MEDS: MORPHINE SULFATE 100 MG CONTROLLED RELEASE TAB PO SCH ×3 (02:00→18:00)
[2016-12-08] MEDS: MORPHINE SULFATE 30 MG CONTROLLED RELEASE TAB PO SCH ×3 (02:00→18:00)
[2016-12-08] MEDS: MIDODRINE 5 MG TAB PO SCH ×3 (06:00→21:53)
[2016-12-08] MEDS: LEVOTHYROXINE SODIUM 50 MCG TAB PO SCH (06:00)
[2016-12-08] MEDS: INSULIN ASPART SUPPLEMENTAL SCALE SQ SCH ×4 (06:53→21:00)
[2016-12-08 08:00] VITALS: BP 114/51; PULSE 85; RESP 16; TEMP 97.5; O2SAT 99
[2016-12-08 09:00] VITALS: O2SAT 99
[2016-12-08] MEDS: ASCORBIC ACID 500 MG TAB PO SCH ×2 (09:00→21:53)
[2016-12-08] MEDS: SODIUM CHLORIDE 0.9% FLUSH 10 ML FLUSH IV FLUSH SCH ×2 (09:00→21:00)
[2016-12-08] MEDS: DOCUSATE SODIUM 100 MG CAP PO SCH ×2 (09:00→21:52)
[2016-12-08] MEDS: COLLAGENASE OINT 30 GM TUBE TOPICAL SCH (09:00)
[2016-12-08] MEDS: FAMOTIDINE 20 MG TAB PO SCH (09:00)
[2016-12-08] MEDS: INSULIN DETEMIR 100 UNITS/ML VIAL SQ SCH ×2 (09:00→21:00)
[2016-12-08] MEDS: ATORVASTATIN 40 MG TAB PO SCH (09:00)
[2016-12-08] MEDS: POVIDONE IODINE 10% OINT 30 GM TUBE TOPICAL SCH (09:00)
[2016-12-08] MEDS: OXYBUTYNIN CHLORIDE 5 MG TAB PO SCH ×2 (09:00→21:53)
[2016-12-08] MEDS: NYSTATIN 100,000 U/GM PWD 15 GM BTL TOPICAL SCH ×2 (09:00→21:00)
--- NOTE | 2016-12-08 11:29 | HHI.PR ---
Subjective Remarks not cooperative with the exam today. refused wound care follow-up. d/w the forder operator. Objective Vitals Vital Signs Date Time Temp Pulse Resp B/P Pulse Ox O2 Delivery O2 Flow Rate FiO2 12/08/16 08:00 97.5 85 16 114/51 99 12/07/16 20:00 96.6 72 17 128/59 100 12/07/16 17:48 Full Face Mask 40.0 I/O 12/07/16 12/07/16 12/07/16 12/08/16 12/08/16 12/08/16 07:00 15:00 23:00 07:00 15:00 23:00 Intake Total 960 ml 340 ml 240 ml 240 ml Output Total 1200 ml 1800 ml Balance -240 ml -1460 ml 240 ml 240 ml Intake Oral 960 ml 340 ml 240 ml 240 ml IV Total 0 ml Output Urine Total 1200 ml 1800 ml # Voids 2 3 # Bowel Movements 0 Result Diagram: 12/05/16 1043 12/05/16 1043 Objective Remarks GENERAL: morbidly obese, in no apparent distress. CARDIOVASCULAR: Regular rate and regular rhythm without murmurs, gallops, or rubs. RESPIRATORY: Clear to auscultation. Breath sounds equal bilaterally. No wheezes , rales, or rhonchi. GASTROINTESTINAL: Abdomen soft, non-tender, nondistended. Normal, active bowel sounds MUSCULOSKELETAL: Extremities without clubbing, cyanosis, or edema. NEURO: Alert & Oriented x4 to person, place, time, situation. Moves all ext x4 Procedures 11/25- S/P flexible cystoscopy with replacement of kyle catheter (Councill catheter) Medications and IVs Current Medications Insulin Human Regular (NovoLIN R INJ) 10 units ONCE ONCE SQ Last administered on 11/10/16 21:05; Start 11/10/16 at 16:00; Stop 11/10/16 at 16:01; Status DC Sodium Chloride (NS Flush) 2 ml UNSCH PRN IV FLUSH FLUSH AFTER USING IV ACCESS Last administered on 11/28/16 07:09; Start 11/10/16 at 21:45 Sodium Chloride (NS Flush) 2 ml BID IV FLUSH Last administered on 12/07/16 21: 00; Start 11/11/16 at 09:00 Naloxone HCl (Narcan Inj) 0.4 mg UNSCH PRN IV SEE LABEL COMMENTS; Start at 21:45 Albuterol Sulfate (Albuterol Neb) 2.5 mg Q6HR ALT NEB PRN NEB SHORTNESS OF BREATH; Start 11/11/16 at 02:00 Alprazolam (Xanax) 2 mg Q6HR PRN PO BELÉN Last administered on 12/06/16 16:42; Start 11/11/16 at 02:00 Ascorbic Acid (Vitamin C) 500 mg BID PO Last administered on 12/07/16 22:13; Start 11/11/16 at 09:00 Atorvastatin Calcium (Lipitor) 40 mg DAILY PO Last administered on 12/06/16 08 :31; Start 11/11/16 at 09:00 Baclofen (Lioresal) 20 mg Q6HR PRN PO MUSCLE SPASM Last administered on 16:42; Start 11/11/16 at 02:00 Bupropion HCl (Wellbutrin Xl 24 Hr) 150 mg DAILY PO ; Start 11/11/16 at 09:00; Status UNV Bupropion HCl (Wellbutrin Sr) 150 mg BID PO Last administered on 11/24/16 10: 23; Start 11/11/16 at 09:00; Stop 11/24/16 at 14:19; Status DC Chlorhexidine Gluconate (Peridex 0.12% Liq) 10 ml BID PRN SWISH-SPIT peridontitis; Start 11/11/16 at 02:00 Clotrimazole (Lotrimin 1% Cream) 1 applic DAILY PRN TOPICAL RASH IN SKIN FOLDS Last administered on 12/05/16 11:50; Start 11/11/16 at 02:00 Collagenase (Santyl Oint) 1 applic Q8HR TOPICAL Last administered on 11/23/16 12:12; Start 11/11/16 at 06:00; Stop 11/23/16 at 12:34; Status DC Escitalopram Oxalate (Lexapro) 20 mg HS PO Last administered on 11/13/16 21:18 ; Start 11/11/16 at 21:00; Stop 11/14/16 at 15:43; Status DC Furosemide (Lasix) 40 mg BID PO Last administered on 11/28/16 08:34; Start at 09:00; Status Hold Insulin Detemir (Levemir Inj) 55 units HS SQ Last administered on 11/19/16 21: 43; Start 11/11/16 at 21:00; Stop 11/19/16 at 22:31; Status DC Levothyroxine Sodium (Synthroid) 50 mcg DAILY@06 PO Last administered on 06:01; Start 11/11/16 at 06:00 Morphine Sulfate (Oramorph Sr) 30 mg Q8H PO Last administered on 12/07/16 17: 01; Start 11/11/16 at 02:00 Morphine Sulfate (Oramorph Sr) 100 mg Q8H PO Last administered on 12/07/16 17: 01; Start 11/11/16 at 02:00 Potassium Chloride (KCl) 20 meq DAILY PO Last administered on 11/16/16 08:47; Start 11/11/16 at 09:00; Status Hold Promethazine HCl (Phenergan) 25 mg Q8HR PRN PO Nausea/Vomiting; Start 11/11/16 at 02:00 Famotidine (Pepcid) 20 mg DAILY PO Last administered on 12/06/16 08:31; Start 11/11/16 at 09:00 Rivaroxaban (Xarelto) 20 mg HS PO Last administered on 12/07/16 22:14; Start 11/11/16 at 21:00 Simethicone (Mylicon Chew) 160 mg ACHS PRN CHEW GAS RETENTION Last administered on 12/01/16 12:46; Start 11/11/16 at 02:00 Trazodone HCl (Desyrel) 200 mg HS PO Last administered on 11/13/16 21:17; Start 11/11/16 at 21:00; Stop 11/14/16 at 10:19; Status DC Zolpidem Tartrate (Ambien) 10 mg HS PO Last administered on 12/07/16 22:14; Start 11/11/16 at 21:00 Tolterodine Tartrate (Detrol La) 2 mg HS PO Last administered on 12/07/16 22: 14; Start 11/11/16 at 21:00 Oxycodone HCl (Roxicodone) 30 mg Q4H PRN PO PAIN Last administered on 09:01; Start 11/11/16 at 04:00; Stop 12/04/16 at 11:36; Status DC Hydromorphone HCl 0.5 mg 0.5 mg Q4H PRN IV PUSH breakthrough pain Last administered on 11/16/16 16:41; Start 11/11/16 at 02:15; Stop 11/16/16 at 22:41; Status DC Levofloxacin/ Dextrose (Levaquin 750 Mg Premix Inj) 150 ml @ 100 mls/hr Q24H IV Last administered on 11/14/16 03:44; Start 11/11/16 at 03:00; Stop 11/14/16 at 10:19; Status DC Bupropion HCl (Wellbutrin Sr 12 Hr) 150 mg DAILY PO ; Start 11/11/16 at 09:00; Status Cancel Bupropion HCl (Wellbutrin Sr) 150 mg DAILY PO Last administered on 11/11/16 12 :45; Start 11/11/16 at 09:00; Stop 11/12/16 at 07:22; Status DC Ondansetron HCl (Zofran Inj) 4 mg Q6HR PRN IV PUSH NAUSEA Last administered on 12/06/16 17:36; Start 11/11/16 at 03:15 Dextrose (D50w (Vial) Inj) 25 ml UNSCH PRN IV PUSH HYPOGLYCEMIA-SEE COMMENTS; Start 11/12/16 at 11:45 Glucagon (Glucagon Inj) 1 mg UNSCH PRN OTHER HYPOGLYCEMIA-SEE COMMENTS; Start 11/12/16 at 11:45 Insulin Aspart (NovoLOG SUPPLEMENTAL SCALE) 1 ACHS SLIDING SCALE SQ Last administered on 12/06/16 21:00; Start 11/12/16 at 16:00 Docusate Sodium (Colace) 100 mg BID PO Last administered on 12/07/16 22:14; Start 11/13/16 at 21:00 Magnesium Citrate (Citroma Liq) 600 ml Q24H PRN PO CONSTIPATION Last administered on 11/18/16 09:38; Start 11/13/16 at 14:45 Nystatin (Mycostatin Powder) 1 applic BID TOPICAL Last administered on 08:33; Start 11/13/16 at 21:00 Levofloxacin (Levaquin) 500 mg DAILY@11 PO Last administered on 11/21/16 10:53 ; Start 11/15/16 at 11:00; Stop 11/22/16 at 10:59; Status DC Trazodone HCl (Desyrel) 100 mg HS PO Last administered on 11/16/16 20:32; Start 11/14/16 at 21:00; Stop 11/16/16 at 22:40; Status DC Trazodone HCl (Desyrel) 200 mg HS PO Last administered on 12/07/16 22:13; Start 11/17/16 at 21:00 Hydromorphone HCl (Dilaudid Pf Inj) 1 mg Q4H PRN IV PUSH breakthrough pain Last administered on 11/29/16 10:31; Start 11/17/16 at 02:15; Stop 11/29/16 at 12:37; Status DC Trazodone HCl (Desyrel) 100 mg ONCE ONCE PO Last administered on 11/16/16 23: 54; Start 11/16/16 at 22:45; Stop 11/16/16 at 22:46; Status DC Acetaminophen (Tylenol) 650 mg Q4H PRN PO Headache, fever Last administered on 12/01/16 04:16; Start 11/18/16 at 17:30 Insulin Detemir (Levemir Inj) 30 units BID SQ Last administered on 11/20/16 09: 20; Start 11/20/16 at 09:00; Stop 11/20/16 at 11:16; Status DC Insulin Aspart (NovoLOG INJ) 6 units TIDAC SQ Last administered on 11/30/16 11 :10; Start 11/20/16 at 08:00; Stop 11/30/16 at 15:15; Status DC Insulin Detemir (Levemir Inj) 35 units BID SQ Last administered on 11/30/16 10 :40; Start 11/20/16 at 21:00; Stop 11/30/16 at 15:16; Status DC Collagenase (Santyl Oint) 1 applic DAILY TOPICAL Last administered on 08:33; Start 11/23/16 at 12:45 Povidone Iodine (Betadine 10% Oint) 1 pkt DAILY TOPICAL ; Start 11/23/16 at 12: 45; Stop 11/23/16 at 18:32; Status DC Povidone Iodine (Betadine 10% Oint) 1 applic DAILY TOPICAL Last administered on 12/06/16 08:33; Start 11/23/16 at 18:32 Insulin Human Regular (NovoLIN R INJ) 10 units ONCE ONCE IV PUSH Last administered on 11/23/16 22:28; Start 11/23/16 at 20:45; Stop 11/23/16 at 20:46 ; Status DC Bupropion HCl 200 mg 200 mg BID PO Last administered on 11/29/16 09:11; Start 11/24/16 at 21:00; Status Hold Lactated Ringer's 1,000 ml @ 30 mls/hr Q24H PRN IV SEE LABEL COMMENTS; Start at 08:30; Stop 11/28/16 at 08:31; Status DC Sodium Chloride (NS 500 ml Inj) 500 ml @ 30 mls/hr [id number] PRN IV SEE LABEL COMMENTS; Start 11/25/16 at 08:30; Stop 11/28/16 at 08:31; Status DC Metoprolol Tartrate (Lopressor) 25 mg STORE CONSULTANT PRN PO SEE LABEL COMMENTS; Start 11/25/16 at 08:30; Stop 11/28/16 at 08:31; Status DC Povidone Iodine (Betadine 5% Antisepsis Kit) 1 applic STORE CONSULTANT PRN EACH NARE SEE LABEL COMMENTS; Start 11/25/16 at 08:30; Stop 11/28/16 at 08:31; Status DC Chlorhexidine Gluconate (Chlorhexidine 2% Cloth) 3 pack STORE CONSULTANT PRN TOPICAL SEE LABEL COMMENTS; Start 11/25/16 at 08:30; Stop 11/28/16 at 08:31; Status DC Insulin Human Regular (NovoLIN R INJ) See Protocol Table ... STORE CONSULTANT PRN SQ SEE PROTOCOL TABLE; Start 11/25/16 at 08:30; Stop 11/28/16 at 08:31; Status DC Oxybutynin Chloride (Ditropan) 5 mg Q12HR PO Last administered on 12/07/16 22: 14; Start 11/28/16 at 14:00 Hydromorphone HCl (Dilaudid Pf Inj) 1.5 mg Q4H PRN IV PUSH breakthrough pain Last administered on 12/04/16 11:21; Start 11/29/16 at 14:15; Stop 12/04/16 at 11:36; Status DC Miscellaneous Medication (ASP Crit: Doc allergy to Penicillin/ Cephalosp) 1 UNSCH X1 PRN .XX PHARMACY DOCUMENTATION; Start 11/29/16 at 15:30; Stop at 15:29; Status DC Miscellaneous Medication 1 1 UNSCH X1 PRN XX PHARMACY DOCUMENTATION; Start at 15:30; Stop 11/30/16 at 15:29; Status DC Meropenem/Sodium Chloride (Merrem Inj/NS Inj) 100 ml @ 200 mls/hr Q8H IV Last administered on 12/01/16 09:21; Start 11/29/16 at 16:00; Stop 12/01/16 at 14:34 ; Status DC Miscellaneous Medication 1 1 UNSCH X1 PRN XX PHARMACY DOCUMENTATION; Start at 15:30; Stop 11/30/16 at 15:29; Status DC Linezolid 300 ml @ 300 mls/hr Q12H IV Last administered on 12/01/16 04:12; Start 11/29/16 at 16:00; Stop 12/01/16 at 14:34; Status DC Fluconazole/ Sodium Chloride (Diflucan 400 Mg Premix Bag) 200 ml @ 100 mls/hr Q24H IV Last administered on 11/30/16 18:42; Start 11/29/16 at 18:00; Stop at 14:34; Status DC Insulin Aspart (NovoLOG INJ) 12 units TIDAC SQ Last administered on 11/30/16 18:43; Start 11/30/16 at 17:00; Status Hold Insulin Detemir (Levemir Inj) 40 units BID SQ Last administered on 12/01/16 09 :23; Start 11/30/16 at 21:00; Stop 12/01/16 at 17:30; Status DC Midodrine (Proamatine) 10 mg Q8HR PO Last administered on 12/07/16 22:14; Start 11/30/16 at 21:00 Miscellaneous Medication (ASP Crit: Doc ESBL, MDR A baumannii or P aer) 1 UNSCH X1 PRN .XX PHARMACY DOCUMENTATION; Start 12/01/16 at 14:45; Stop 12/02/16 at 14 :44; Status DC Miscellaneous Medication 1 1 UNSCH X1 PRN XX PHARMACY DOCUMENTATION; Start at 14:45; Stop 12/02/16 at 14:44; Status DC Ertapenem/Sodium Chloride (INVanz INJ/NS Inj) 100 ml @ 200 mls/hr Q24H IV Last administered on 12/07/16 17:00; Start 12/01/16 at 16:00 Insulin Detemir 20 units 20 units BID SQ Last administered on 12/06/16 21:47; Start 12/01/16 at 21:00 Sodium Chloride (NS 1000 ml Inj) 1,000 ml @ 1,000 mls/hr Q1H IV Last administered on 12/02/16 01:00; Start 12/02/16 at 00:00; Stop 12/02/16 at 01:59 ; Status DC Albumin Human (Albumin 5% Inj) 25 gm ONCE ONCE IV Last administered on 00:30; Start 12/02/16 at 00:00; Stop 12/02/16 at 00:07; Status DC Hydromorphone HCl (Dilaudid Pf Inj) 1 mg Q4H PRN IV PUSH breakthrough pain; Start 12/04/16 at 11:45; Stop 12/04/16 at 11:45; Status DC Hydromorphone HCl (Dilaudid Pf Inj) 1 mg Q4H PRN IV PUSH breakthrough pain Last administered on 12/06/16 12:22; Start 12/04/16 at 14:15; Stop 12/06/16 at 12:32; Status DC Oxycodone HCl (Roxicodone) 30 mg Q4H PRN PO BREAKTHROUGH PAIN Last administered on 12/06/16 16:42; Start 12/06/16 at 12:30 Date of Insertion: Nov 25, 2016 A/P Assessment and Plan 25-year-old male patient with a medical history significant for paraplegia, neurogenic bladder, hypertension, chronic recurrent DVT, chronic pain, sleep apnea, CHF who was brought under Felipe act due to threatening staff at his nursing facility. Neurogenic Bladder Sepsis- source likely UTI- ESBL hypotension better BP readings- continue Midodrine S/P Tx for UTI - S/p Levaquin 500 mg course 11/22/2016. S/P replacement of kyle catheter by Dr. Meraz- 11/25. On Oxybutynin 5 mg bid blood cultures- negative so far Ertapenem for 14 days per ID recommendation - Diabetes: Mellitus, insulin requiring- - reinforced and encourage - Monitor Accu-Cheks, Continue sliding scale insulin.- - on Levemir 20 units BID. - continue to monitor and adjust Chronic pain. Home medications baclofen, morphine,oxycodone. -dc'ed IV dilaudid and restarted his home roxicodone- continue Oramorph. Morbid obesity: Outpatient general surgery referral needed for possible surgical interventions. Chronic pressure ulcers: Wound care team ff-however refused the wound care today. Documented on admission. Patient turning himself rigorously Sleep apnea, CPAP at night Anxiety and depression: no suicidal ideations- concern is more about of pain medications Was evaluated by psych in the ER, Felipe acted lifted, did not meet inpatient psychiatric and admission criteria. -Continue his outpatient psychiatric care upon discharge. -Continue Home meds trazodone, Wellbutrin. Hyperlipidemia: Continue Lipitor Hypothyroidism: Continue levothyroxine chronic pain - on chronic pain meds- as noted above. Substance use: tox screen on admission significant for opiates, benzos, cannabinoids Full code. on Xarelto.- Discharge Planning no accepting facility yet. Juan Diego Zambrano MD Dec 08, 2016 11:29
[2016-12-08 12:45] VITALS: O2SAT 99
[2016-12-08] MEDS: ERTAPENEM INJ 1,000 MG in SODIUM CHLORIDE 0.9% INJ 100 ML IV SCH (16:00)
[2016-12-08 20:00] VITALS: BP 126/60; PULSE 94; RESP 19; TEMP 97.1; O2SAT 96
[2016-12-08] MEDS: ZOLPIDEM TARTRATE 10 MG TAB PO SCH (21:53)
[2016-12-08] MEDS: TOLTERODINE TARTRATE 2 MG CAP LA PO SCH (21:53)
[2016-12-08] MEDS: RIVAROXABAN 20 MG TAB PO SCH (21:53)
[2016-12-08] MEDS: traZODone HCL 100 MG TAB PO SCH (21:53)
[2016-12-09] MEDS: MORPHINE SULFATE 100 MG CONTROLLED RELEASE TAB PO SCH ×3 (02:25→17:59)
[2016-12-09] MEDS: MORPHINE SULFATE 30 MG CONTROLLED RELEASE TAB PO SCH ×3 (02:25→17:59)
[2016-12-09] MEDS: MIDODRINE 5 MG TAB PO SCH ×3 (06:09→22:44)
[2016-12-09] MEDS: LEVOTHYROXINE SODIUM 50 MCG TAB PO SCH (06:09)
[2016-12-09] MEDS: INSULIN ASPART SUPPLEMENTAL SCALE SQ SCH ×4 (06:12→21:00)
[2016-12-09 08:00] VITALS: BP 114/56; PULSE 78; RESP 18; O2SAT 100
[2016-12-09] MEDS: ACETAMINOPHEN 325 MG TAB PO PRN (08:49)
[2016-12-09] MEDS: ALPRAZolam 1 MG TAB PO PRN (08:49)
[2016-12-09] MEDS: SODIUM CHLORIDE 0.9% FLUSH 10 ML FLUSH IV FLUSH SCH ×2 (08:53→21:00)
[2016-12-09] MEDS: OXYBUTYNIN CHLORIDE 5 MG TAB PO SCH ×2 (08:53→22:45)
[2016-12-09] MEDS: DOCUSATE SODIUM 100 MG CAP PO SCH ×2 (08:53→22:45)
[2016-12-09] MEDS: POVIDONE IODINE 10% OINT 30 GM TUBE TOPICAL SCH (08:54)
[2016-12-09] MEDS: ASCORBIC ACID 500 MG TAB PO SCH ×2 (08:54→22:45)
[2016-12-09] MEDS: INSULIN DETEMIR 100 UNITS/ML VIAL SQ SCH ×2 (08:54→21:00)
[2016-12-09] MEDS: ATORVASTATIN 40 MG TAB PO SCH (08:54)
[2016-12-09] MEDS: FAMOTIDINE 20 MG TAB PO SCH (08:54)
[2016-12-09] MEDS: NYSTATIN 100,000 U/GM PWD 15 GM BTL TOPICAL SCH ×2 (08:54→21:00)
[2016-12-09] MEDS: COLLAGENASE OINT 30 GM TUBE TOPICAL SCH (08:54)
[2016-12-09 10:37] VITALS: O2SAT 100
[2016-12-09 12:00] VITALS: BP 102/51; PULSE 75; RESP 18; TEMP 97.4; O2SAT 99
--- NOTE | 2016-12-09 12:53 | HHI.PR ---
Subjective Remarks in no acute distress. but not cooperative. refused part of his medical care. d/w the RN. Objective Vitals Vital Signs Date Time Temp Pulse Resp B/P Pulse Ox O2 Delivery O2 Flow Rate FiO2 12/09/16 11:16 18 12/09/16 11:16 18 12/09/16 11:16 18 12/09/16 10:37 100 40 12/09/16 09:49 18 12/09/16 08:00 78 18 114/56 100 12/08/16 20:00 97.1 94 19 126/60 96 I/O 12/08/16 12/08/16 12/08/16 12/09/16 12/09/16 12/09/16 07:00 15:00 23:00 07:00 15:00 23:00 Intake Total 240 ml 240 ml 480 ml Balance 240 ml 240 ml 480 ml Intake Oral 240 ml 240 ml 480 ml IV Total 0 ml 0 ml # Voids 3 1 2 Result Diagram: 12/05/16 1043 12/05/16 1043 Objective Remarks GENERAL: morbidly obese, in no apparent distress. CARDIOVASCULAR: Regular rate and regular rhythm without murmurs, gallops, or rubs. RESPIRATORY: Clear to auscultation. Breath sounds equal bilaterally. No wheezes , rales, or rhonchi. GASTROINTESTINAL: Abdomen soft, non-tender, nondistended. Normal, active bowel sounds MUSCULOSKELETAL: Extremities without clubbing, cyanosis, or edema. NEURO: Alert & Oriented x4 to person, place, time, situation. Moves all ext x4 Procedures 11/25- S/P flexible cystoscopy with replacement of kyle catheter (Councill catheter) Medications and IVs Current Medications Insulin Human Regular (NovoLIN R INJ) 10 units ONCE ONCE SQ Last administered on 11/10/16 21:05; Start 11/10/16 at 16:00; Stop 11/10/16 at 16:01; Status DC Sodium Chloride (NS Flush) 2 ml UNSCH PRN IV FLUSH FLUSH AFTER USING IV ACCESS Last administered on 11/28/16 07:09; Start 11/10/16 at 21:45 Sodium Chloride (NS Flush) 2 ml BID IV FLUSH Last administered on 12/09/16 08: 53; Start 11/11/16 at 09:00 Naloxone HCl (Narcan Inj) 0.4 mg UNSCH PRN IV SEE LABEL COMMENTS; Start at 21:45 Albuterol Sulfate (Albuterol Neb) 2.5 mg Q6HR ALT NEB PRN NEB SHORTNESS OF BREATH; Start 11/11/16 at 02:00 Alprazolam (Xanax) 2 mg Q6HR PRN PO BELÉN Last administered on 12/09/16 08:49; Start 11/11/16 at 02:00 Ascorbic Acid (Vitamin C) 500 mg BID PO Last administered on 12/08/16 21:53; Start 11/11/16 at 09:00 Atorvastatin Calcium (Lipitor) 40 mg DAILY PO Last administered on 12/06/16 08 :31; Start 11/11/16 at 09:00 Baclofen (Lioresal) 20 mg Q6HR PRN PO MUSCLE SPASM Last administered on 16:42; Start 11/11/16 at 02:00 Bupropion HCl (Wellbutrin Xl 24 Hr) 150 mg DAILY PO ; Start 11/11/16 at 09:00; Status UNV Bupropion HCl (Wellbutrin Sr) 150 mg BID PO Last administered on 11/24/16 10: 23; Start 11/11/16 at 09:00; Stop 11/24/16 at 14:19; Status DC Chlorhexidine Gluconate (Peridex 0.12% Liq) 10 ml BID PRN SWISH-SPIT peridontitis; Start 11/11/16 at 02:00 Clotrimazole (Lotrimin 1% Cream) 1 applic DAILY PRN TOPICAL RASH IN SKIN FOLDS Last administered on 12/05/16 11:50; Start 11/11/16 at 02:00 Collagenase (Santyl Oint) 1 applic Q8HR TOPICAL Last administered on 11/23/16 12:12; Start 11/11/16 at 06:00; Stop 11/23/16 at 12:34; Status DC Escitalopram Oxalate (Lexapro) 20 mg HS PO Last administered on 11/13/16 21:18 ; Start 11/11/16 at 21:00; Stop 11/14/16 at 15:43; Status DC Furosemide (Lasix) 40 mg BID PO Last administered on 11/28/16 08:34; Start at 09:00; Status Hold Insulin Detemir (Levemir Inj) 55 units HS SQ Last administered on 11/19/16 21: 43; Start 11/11/16 at 21:00; Stop 11/19/16 at 22:31; Status DC Levothyroxine Sodium (Synthroid) 50 mcg DAILY@06 PO Last administered on 06:09; Start 11/11/16 at 06:00 Morphine Sulfate (Oramorph Sr) 30 mg Q8H PO Last administered on 12/09/16 10: 16; Start 11/11/16 at 02:00 Morphine Sulfate (Oramorph Sr) 100 mg Q8H PO Last administered on 12/09/16 10: 17; Start 11/11/16 at 02:00 Potassium Chloride (KCl) 20 meq DAILY PO Last administered on 11/16/16 08:47; Start 11/11/16 at 09:00; Status Hold Promethazine HCl (Phenergan) 25 mg Q8HR PRN PO Nausea/Vomiting; Start 11/11/16 at 02:00 Famotidine (Pepcid) 20 mg DAILY PO Last administered on 12/06/16 08:31; Start 11/11/16 at 09:00 Rivaroxaban (Xarelto) 20 mg HS PO Last administered on 12/08/16 21:53; Start 11/11/16 at 21:00 Simethicone (Mylicon Chew) 160 mg ACHS PRN CHEW GAS RETENTION Last administered on 12/01/16 12:46; Start 11/11/16 at 02:00 Trazodone HCl (Desyrel) 200 mg HS PO Last administered on 11/13/16 21:17; Start 11/11/16 at 21:00; Stop 11/14/16 at 10:19; Status DC Zolpidem Tartrate (Ambien) 10 mg HS PO Last administered on 12/08/16 21:53; Start 11/11/16 at 21:00 Tolterodine Tartrate (Detrol La) 2 mg HS PO Last administered on 12/08/16 21: 53; Start 11/11/16 at 21:00 Oxycodone HCl (Roxicodone) 30 mg Q4H PRN PO PAIN Last administered on 09:01; Start 11/11/16 at 04:00; Stop 12/04/16 at 11:36; Status DC Hydromorphone HCl 0.5 mg 0.5 mg Q4H PRN IV PUSH breakthrough pain Last administered on 11/16/16 16:41; Start 11/11/16 at 02:15; Stop 11/16/16 at 22:41; Status DC Levofloxacin/ Dextrose (Levaquin 750 Mg Premix Inj) 150 ml @ 100 mls/hr Q24H IV Last administered on 11/14/16 03:44; Start 11/11/16 at 03:00; Stop 11/14/16 at 10:19; Status DC Bupropion HCl (Wellbutrin Sr 12 Hr) 150 mg DAILY PO ; Start 11/11/16 at 09:00; Status Cancel Bupropion HCl (Wellbutrin Sr) 150 mg DAILY PO Last administered on 11/11/16 12 :45; Start 11/11/16 at 09:00; Stop 11/12/16 at 07:22; Status DC Ondansetron HCl (Zofran Inj) 4 mg Q6HR PRN IV PUSH NAUSEA Last administered on 12/06/16 17:36; Start 11/11/16 at 03:15 Dextrose (D50w (Vial) Inj) 25 ml UNSCH PRN IV PUSH HYPOGLYCEMIA-SEE COMMENTS; Start 11/12/16 at 11:45 Glucagon (Glucagon Inj) 1 mg UNSCH PRN OTHER HYPOGLYCEMIA-SEE COMMENTS; Start 11/12/16 at 11:45 Insulin Aspart (NovoLOG SUPPLEMENTAL SCALE) 1 ACHS SLIDING SCALE SQ Last administered on 12/06/16 21:00; Start 11/12/16 at 16:00 Docusate Sodium (Colace) 100 mg BID PO Last administered on 12/08/16 21:52; Start 11/13/16 at 21:00 Magnesium Citrate (Citroma Liq) 600 ml Q24H PRN PO CONSTIPATION Last administered on 11/18/16 09:38; Start 11/13/16 at 14:45 Nystatin (Mycostatin Powder) 1 applic BID TOPICAL Last administered on 08:33; Start 11/13/16 at 21:00 Levofloxacin (Levaquin) 500 mg DAILY@11 PO Last administered on 11/21/16 10:53 ; Start 11/15/16 at 11:00; Stop 11/22/16 at 10:59; Status DC Trazodone HCl (Desyrel) 100 mg HS PO Last administered on 11/16/16 20:32; Start 11/14/16 at 21:00; Stop 11/16/16 at 22:40; Status DC Trazodone HCl (Desyrel) 200 mg HS PO Last administered on 12/08/16 21:53; Start 11/17/16 at 21:00 Hydromorphone HCl (Dilaudid Pf Inj) 1 mg Q4H PRN IV PUSH breakthrough pain Last administered on 11/29/16 10:31; Start 11/17/16 at 02:15; Stop 11/29/16 at 12:37; Status DC Trazodone HCl (Desyrel) 100 mg ONCE ONCE PO Last administered on 11/16/16 23: 54; Start 11/16/16 at 22:45; Stop 11/16/16 at 22:46; Status DC Acetaminophen (Tylenol) 650 mg Q4H PRN PO Headache, fever Last administered on 12/09/16 08:49; Start 11/18/16 at 17:30 Insulin Detemir (Levemir Inj) 30 units BID SQ Last administered on 11/20/16 09: 20; Start 11/20/16 at 09:00; Stop 11/20/16 at 11:16; Status DC Insulin Aspart (NovoLOG INJ) 6 units TIDAC SQ Last administered on 11/30/16 11 :10; Start 11/20/16 at 08:00; Stop 11/30/16 at 15:15; Status DC Insulin Detemir (Levemir Inj) 35 units BID SQ Last administered on 11/30/16 10 :40; Start 11/20/16 at 21:00; Stop 11/30/16 at 15:16; Status DC Collagenase (Santyl Oint) 1 applic DAILY TOPICAL Last administered on 08:33; Start 11/23/16 at 12:45 Povidone Iodine (Betadine 10% Oint) 1 pkt DAILY TOPICAL ; Start 11/23/16 at 12: 45; Stop 11/23/16 at 18:32; Status DC Povidone Iodine (Betadine 10% Oint) 1 applic DAILY TOPICAL Last administered on 12/06/16 08:33; Start 11/23/16 at 18:32 Insulin Human Regular (NovoLIN R INJ) 10 units ONCE ONCE IV PUSH Last administered on 11/23/16 22:28; Start 11/23/16 at 20:45; Stop 11/23/16 at 20:46 ; Status DC Bupropion HCl 200 mg 200 mg BID PO Last administered on 11/29/16 09:11; Start 11/24/16 at 21:00; Status Hold Lactated Ringer's 1,000 ml @ 30 mls/hr Q24H PRN IV SEE LABEL COMMENTS; Start at 08:30; Stop 11/28/16 at 08:31; Status DC Sodium Chloride (NS 500 ml Inj) 500 ml @ 30 mls/hr [id number] PRN IV SEE LABEL COMMENTS; Start 11/25/16 at 08:30; Stop 11/28/16 at 08:31; Status DC Metoprolol Tartrate (Lopressor) 25 mg BRICK TENDER PRN PO SEE LABEL COMMENTS; Start 11/25/16 at 08:30; Stop 11/28/16 at 08:31; Status DC Povidone Iodine (Betadine 5% Antisepsis Kit) 1 applic BRICK TENDER PRN EACH NARE SEE LABEL COMMENTS; Start 11/25/16 at 08:30; Stop 11/28/16 at 08:31; Status DC Chlorhexidine Gluconate (Chlorhexidine 2% Cloth) 3 pack BRICK TENDER PRN TOPICAL SEE LABEL COMMENTS; Start 11/25/16 at 08:30; Stop 11/28/16 at 08:31; Status DC Insulin Human Regular (NovoLIN R INJ) See Protocol Table ... BRICK TENDER PRN SQ SEE PROTOCOL TABLE; Start 11/25/16 at 08:30; Stop 11/28/16 at 08:31; Status DC Oxybutynin Chloride (Ditropan) 5 mg Q12HR PO Last administered on 12/08/16 21: 53; Start 11/28/16 at 14:00 Hydromorphone HCl (Dilaudid Pf Inj) 1.5 mg Q4H PRN IV PUSH breakthrough pain Last administered on 12/04/16 11:21; Start 11/29/16 at 14:15; Stop 12/04/16 at 11:36; Status DC Miscellaneous Medication (ASP Crit: Doc allergy to Penicillin/ Cephalosp) 1 UNSCH X1 PRN .XX PHARMACY DOCUMENTATION; Start 11/29/16 at 15:30; Stop at 15:29; Status DC Miscellaneous Medication 1 1 UNSCH X1 PRN XX PHARMACY DOCUMENTATION; Start at 15:30; Stop 11/30/16 at 15:29; Status DC Meropenem/Sodium Chloride (Merrem Inj/NS Inj) 100 ml @ 200 mls/hr Q8H IV Last administered on 12/01/16 09:21; Start 11/29/16 at 16:00; Stop 12/01/16 at 14:34 ; Status DC Miscellaneous Medication 1 1 UNSCH X1 PRN XX PHARMACY DOCUMENTATION; Start at 15:30; Stop 11/30/16 at 15:29; Status DC Linezolid 300 ml @ 300 mls/hr Q12H IV Last administered on 12/01/16 04:12; Start 11/29/16 at 16:00; Stop 12/01/16 at 14:34; Status DC Fluconazole/ Sodium Chloride (Diflucan 400 Mg Premix Bag) 200 ml @ 100 mls/hr Q24H IV Last administered on 11/30/16 18:42; Start 11/29/16 at 18:00; Stop at 14:34; Status DC Insulin Aspart (NovoLOG INJ) 12 units TIDAC SQ Last administered on 11/30/16 18:43; Start 11/30/16 at 17:00; Status Hold Insulin Detemir (Levemir Inj) 40 units BID SQ Last administered on 12/01/16 09 :23; Start 11/30/16 at 21:00; Stop 12/01/16 at 17:30; Status DC Midodrine (Proamatine) 10 mg Q8HR PO Last administered on 12/09/16 06:09; Start 11/30/16 at 21:00 Miscellaneous Medication (ASP Crit: Doc ESBL, MDR A baumannii or P aer) 1 UNSCH X1 PRN .XX PHARMACY DOCUMENTATION; Start 12/01/16 at 14:45; Stop 12/02/16 at 14 :44; Status DC Miscellaneous Medication 1 1 UNSCH X1 PRN XX PHARMACY DOCUMENTATION; Start at 14:45; Stop 12/02/16 at 14:44; Status DC Ertapenem/Sodium Chloride (INVanz INJ/NS Inj) 100 ml @ 200 mls/hr Q24H IV Last administered on 12/07/16 17:00; Start 12/01/16 at 16:00 Insulin Detemir 20 units 20 units BID SQ Last administered on 12/06/16 21:47; Start 12/01/16 at 21:00 Sodium Chloride (NS 1000 ml Inj) 1,000 ml @ 1,000 mls/hr Q1H IV Last administered on 12/02/16 01:00; Start 12/02/16 at 00:00; Stop 12/02/16 at 01:59 ; Status DC Albumin Human (Albumin 5% Inj) 25 gm ONCE ONCE IV Last administered on 00:30; Start 12/02/16 at 00:00; Stop 12/02/16 at 00:07; Status DC Hydromorphone HCl (Dilaudid Pf Inj) 1 mg Q4H PRN IV PUSH breakthrough pain; Start 12/04/16 at 11:45; Stop 12/04/16 at 11:45; Status DC Hydromorphone HCl (Dilaudid Pf Inj) 1 mg Q4H PRN IV PUSH breakthrough pain Last administered on 12/06/16 12:22; Start 12/04/16 at 14:15; Stop 12/06/16 at 12:32; Status DC Oxycodone HCl (Roxicodone) 30 mg Q4H PRN PO BREAKTHROUGH PAIN Last administered on 12/09/16 10:21; Start 12/06/16 at 12:30 Date of Insertion: Nov 25, 2016 A/P Assessment and Plan 25-year-old male patient with a medical history significant for paraplegia, neurogenic bladder, hypertension, chronic recurrent DVT, chronic pain, sleep apnea, CHF who was brought under Felipe act due to threatening staff at his nursing facility. Neurogenic Bladder Sepsis- source likely UTI- ESBL hypotension better BP readings- continue Midodrine S/P Tx for UTI - S/p Levaquin 500 mg course 11/22/2016. S/P replacement of kyle catheter by Dr. Meraz- 11/25. On Oxybutynin 5 mg bid blood cultures- negative so far Ertapenem for 14 days per ID recommendation - Diabetes: Mellitus, insulin requiring- - reinforced and encourage - Monitor Accu-Cheks, Continue sliding scale insulin.- - on Levemir 20 units BID. - continue to monitor and adjust Chronic pain. Home medications baclofen, morphine,oxycodone. -dc'ed IV dilaudid and restarted his home roxicodone- continue Oramorph. Morbid obesity: Outpatient general surgery referral needed for possible surgical interventions. Chronic pressure ulcers: Wound care team ff-however refused the wound care yesterday. Documented on admission. Patient turning himself rigorously Sleep apnea, CPAP at night Anxiety and depression: no suicidal ideations- concern is more about of pain medications Was evaluated by psych in the ER, Felipe acted lifted, did not meet inpatient psychiatric and admission criteria. -Continue his outpatient psychiatric care upon discharge. -Continue Home meds trazodone, Wellbutrin. Hyperlipidemia: Continue Lipitor Hypothyroidism: Continue levothyroxine chronic pain - on chronic pain meds- as noted above. Substance use: tox screen on admission significant for opiates, benzos, cannabinoids Full code. on Xarelto.- consulted palliative care. Discharge Planning no accepting facility yet. Juan Diego Zambrano MD Dec 09, 2016 12:53
[2016-12-09 16:00] VITALS: BP 106/54; PULSE 76; RESP 18; TEMP 97.6; O2SAT 99
[2016-12-09] MEDS: ERTAPENEM INJ 1,000 MG in SODIUM CHLORIDE 0.9% INJ 100 ML IV SCH (16:00)
[2016-12-09 20:00] VITALS: BP 112/51; PULSE 98; RESP 17; TEMP 97.6; O2SAT 96
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
[2016-12-09] MEDS: ZOLPIDEM TARTRATE 10 MG TAB PO SCH (22:44)
[2016-12-09] MEDS: TOLTERODINE TARTRATE 2 MG CAP LA PO SCH (22:44)
[2016-12-09] MEDS: traZODone HCL 100 MG TAB PO SCH (22:45)
[2016-12-09] MEDS: RIVAROXABAN 20 MG TAB PO SCH (22:46)
[2016-12-10] MEDS: MORPHINE SULFATE 100 MG CONTROLLED RELEASE TAB PO SCH ×3 (02:49→16:32)
[2016-12-10] MEDS: MORPHINE SULFATE 30 MG CONTROLLED RELEASE TAB PO SCH ×3 (02:49→16:27)
[2016-12-10] MEDS: LEVOTHYROXINE SODIUM 50 MCG TAB PO SCH (06:09)
[2016-12-10] MEDS: MIDODRINE 5 MG TAB PO SCH ×3 (06:09→20:15)
[2016-12-10] MEDS: INSULIN ASPART SUPPLEMENTAL SCALE SQ SCH ×4 (06:10→20:19)
[2016-12-10 08:00] VITALS: BP 101/51; PULSE 89; RESP 18; TEMP 97.4; O2SAT 97
[2016-12-10] MEDS: INSULIN DETEMIR 100 UNITS/ML VIAL SQ SCH ×3 (09:00→20:19)
[2016-12-10] MEDS: POVIDONE IODINE 10% OINT 30 GM TUBE TOPICAL SCH ×2 (09:00→20:20)
[2016-12-10] MEDS: ATORVASTATIN 40 MG TAB PO SCH (09:00)
[2016-12-10] MEDS: FAMOTIDINE 20 MG TAB PO SCH (09:00)
[2016-12-10] MEDS: NYSTATIN 100,000 U/GM PWD 15 GM BTL TOPICAL SCH ×2 (09:00→20:20)
[2016-12-10] MEDS: OXYBUTYNIN CHLORIDE 5 MG TAB PO SCH ×2 (09:00→20:15)
[2016-12-10] MEDS: ASCORBIC ACID 500 MG TAB PO SCH ×2 (09:00→20:15)
[2016-12-10] MEDS: DOCUSATE SODIUM 100 MG CAP PO SCH (09:00)
[2016-12-10] MEDS: COLLAGENASE OINT 30 GM TUBE TOPICAL SCH (09:00)
[2016-12-10] MEDS: SODIUM CHLORIDE 0.9% FLUSH 10 ML FLUSH IV FLUSH SCH ×2 (09:02→20:16)
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
[2016-12-10 12:00] VITALS: BP 130/56; PULSE 86; RESP 20; TEMP 97.8; O2SAT 99
[2016-12-10 16:00] VITALS: BP 120/58; PULSE 90; RESP 20; TEMP 97.4; O2SAT 98
[2016-12-10] MEDS: ERTAPENEM INJ 1,000 MG in SODIUM CHLORIDE 0.9% INJ 100 ML IV SCH (16:27)
[2016-12-10] MEDS: buPROPion HCL 150 MG SUSTAINED RELEASE TAB PO SCH (16:55)
[2016-12-10 20:00] VITALS: BP 129/59; PULSE 76; RESP 19; TEMP 97.4; O2SAT 93
[2016-12-10] MEDS: RIVAROXABAN 20 MG TAB PO SCH (20:14)
[2016-12-10] MEDS: TOLTERODINE TARTRATE 2 MG CAP LA PO SCH (20:14)
[2016-12-10] MEDS: traZODone HCL 100 MG TAB PO SCH (20:14)
[2016-12-10] MEDS: ESCITALOPRAM OXALATE 20 MG TAB PO SCH (20:15)
[2016-12-10] MEDS: DOCUSATE SODIUM 50 MG/SENNA 8.6 MG TAB PO SCH (20:15)
[2016-12-10] MEDS: BACLOFEN 20 MG TAB PO PRN (20:38)
[2016-12-10] MEDS: ALPRAZolam 1 MG TAB PO PRN (23:26)
[2016-12-10] MEDS: ZOLPIDEM TARTRATE 5 MG TAB PO PRN (23:26)
[2016-12-11] VITALS: BP 131/60; PULSE 96; RESP 20; TEMP 96; O2SAT 92
[2016-12-11] MEDS ORDERED: EUCERIN CREAM 120 GM JAR TOPICAL ONE
[2016-12-11] MEDS: MORPHINE SULFATE 100 MG CONTROLLED RELEASE TAB PO SCH ×3 (01:02→18:28)
[2016-12-11] MEDS: MORPHINE SULFATE 30 MG CONTROLLED RELEASE TAB PO SCH ×3 (01:04→18:29)
[2016-12-11] MEDS: LEVOTHYROXINE SODIUM 50 MCG TAB PO SCH (06:00)
[2016-12-11] MEDS: MIDODRINE 5 MG TAB PO SCH ×3 (06:02→22:04)
[2016-12-11] MEDS: BACLOFEN 20 MG TAB PO PRN ×2 (06:02→18:38)
[2016-12-11] MEDS: INSULIN ASPART SUPPLEMENTAL SCALE SQ SCH ×4 (06:04→22:05)
[2016-12-11 08:00] VITALS: BP 123/85; PULSE 88; RESP 18; TEMP 95.5; O2SAT 98
--- NOTE | 2016-12-11 08:22 | HHI.PR ---
Subjective Remarks In no acute distress. Sitting up in bed, conversant, good mood. Alert, awake, cooperative. Restarted Wellbutrin and Lexapro yesterday. Asking to restart home Trazodone at bedtime. Having trouble sleeping. Normally takes both Ambien and Trazadone. Asking to be off the special "patient safety" diet stating he is not a danger to himself or others. Denies intention of harming staff or others, and denies thoughts of harming himself. Taking all medications today. Would like double portions of food with meals. Patient is doing well on current medications for psychiatry and pain control and requesting that they not be changed when "a different doctor comes in tomorrow". d/w the RN. Patient much more engaged today, more positive attitude. Taking all medications. Kyle is leaking. Urology was called yesterday to change. Nursing reports will be changed tomorrow as likely will need to be done in OR. Nursing reports they are comfortable patient being on regular diet without patient safety. Will place patient back on this if there is concern he is danger to self or others. Objective Vital Signs Date Time Temp Pulse Resp B/P Pulse Ox O2 Delivery O2 Flow Rate FiO2 12/11/16 07:04 18 12/11/16 00:00 96.0 96 20 131/60 92 12/10/16 20:00 97.4 76 19 129/59 93 12/10/16 16:00 97.4 90 20 120/58 98 12/10/16 12:00 97.8 86 20 130/56 99 I/O 12/10/16 12/10/16 12/10/16 12/11/16 12/11/16 12/11/16 07:00 15:00 23:00 07:00 15:00 23:00 Intake Total 0 ml 600 ml 360 ml 360 ml Balance 0 ml 600 ml 360 ml 360 ml Intake Oral 600 ml 360 ml 360 ml IV Total 0 ml # Voids 3 2 3 # Bowel Movements 0 0 0 Procedures 11/25- S/P flexible cystoscopy with replacement of kyle catheter (Councill catheter) Objective Remarks GENERAL: morbidly obese, in no apparent distress. Sitting up in bed. SKIN: Itchy red skin on arms and abdomen CARDIOVASCULAR: Regular rate and regular rhythm without murmurs, gallops, or rubs. RESPIRATORY: Clear to auscultation. Breath sounds equal bilaterally. No wheezes , rales, or rhonchi. GASTROINTESTINAL: Abdomen obese, non-tender. MUSCULOSKELETAL: Extremities without clubbing, cyanosis, or edema. NEURO: Alert & Oriented. Moves all ext x4. Conversant. PSYCH: Upbeat mood and affect A/P Problem List: (1) Paraplegia ICD Code: G82.20 (2) Neurogenic bladder ICD Code: N31.9 (3) Chronic pain ICD Code: G89.29 (4) Diabetes ICD Code: E11.9 (5) Pressure ulcer ICD Code: L89.90 (6) Morbidly obese ICD Code: E66.01 (7) Sepsis ICD Code: A41.9 (8) Anxiety and depression ICD Code: F41.9 (9) HTN (hypertension) ICD Code: I10 (10) Hypotension ICD Code: I95.9 (11) Sleep apnea ICD Code: G47.30 (12) Hypothyroidism ICD Code: E03.9 (13) HLD (hyperlipidemia) ICD Code: E78.5 Assessment and Plan A/P Neurogenic Bladder Sepsis- source likely UTI- ESBL hypotension Better BP readings- continue Midodrine S/P Tx for UTI - S/p Levaquin 500 mg course 11/22/2016 S/P replacement of Kyle catheter by Dr. Meraz- 11/25. On Oxybutynin 5mg bid. Kyle leaking, nursing called Urology 12/10, likely to be changed tomorrow, may need to go to OR. Blood cultures- negative x5 days Ertapenem for 14 days per ID recommendation (First dose was ordered 12/01. Patient received doses on 12/03, 12/05-12/07 and on 12/10. No doses documented on -12/02 or on or 12/08-12/09 due to lack of IV access & patient refusal) Diabetes Mellitus: insulin requiring- - reinforced and encourage - Monitor Accu-Cheks, Continue sliding scale insulin.- - on Levemir 20 units BID. - continue to monitor and adjust Chronic pain. Home medications baclofen, morphine, oxycodone. -dc'ed IV Dilaudid and restarted his home Roxicodone 12/10- continue Oramorph. Insomnia: Home medications Ambien PRN & Trazadone 200 qHS Morbid obesity: Outpatient general surgery referral needed for possible surgical interventions Chronic pressure ulcers: Wound care team ff- however refused the wound care. Documented on admission. Patient turning himself rigorously Sleep apnea, CPAP at night Anxiety and depression: no homicidal or suicidal ideations Was evaluated by psych in the ER, Felipe acted lifted, did not meet inpatient psychiatric and admission criteria. -Per note on 12/05: "knife found in bed", and patient now on precautionary diet without silverware, will defer to team on Monday if can lift. Nursing still concerned regarding safety. Patient denies SI/HI. -12/10: Restarted home lexapro & Wellbutrin, had not been receiving since admission. -Patient has long history of being on psychiatric medication, currently doing well on Lexapro and Wellbutrin. Previously was on [place] and did not do well with mood on this. -He would like to discuss his options for medications with psychiatry. Also would like to discuss prior psychiatric history -Psychiatry consulted. *Patient is doing well on current medications for psychiatry and pain control Hyperlipidemia: Continue Lipitor Hypothyroidism: Continue levothyroxine chronic pain - on chronic pain meds- as noted above. Substance use: tox screen on admission significant for opiates, benzos, cannabinoids Full code. On Xarelto consulted palliative care. Patient refused to talk with them on 12/09. Discharge Planning no accepting facility yet. CM assisting. D/w nursing, they are comfortable with lifting patient safety diet. Will place patient back on this if there is concern he is danger to self or others. Regular adult diet with double portions per patient's request. Problem Qualifiers (1) Diabetes: Qualified Code: E13.8 - Other specified diabetes mellitus with complication, with long-term current use of insulin (2) Pressure ulcer: (3) Morbidly obese: Qualified Code: E66.01 - Morbid obesity, unspecified obesity type Sofia Singer MD Dec 11, 2016 08:22
[2016-12-11] MEDS: ATORVASTATIN 40 MG TAB PO SCH (08:53)
[2016-12-11] MEDS: FAMOTIDINE 20 MG TAB PO SCH (08:54)
[2016-12-11] MEDS: OXYBUTYNIN CHLORIDE 5 MG TAB PO SCH ×2 (08:54→21:52)
[2016-12-11] MEDS: INSULIN DETEMIR 100 UNITS/ML VIAL SQ SCH ×2 (08:55→22:06)
[2016-12-11] MEDS: ASCORBIC ACID 500 MG TAB PO SCH ×2 (08:55→21:52)
[2016-12-11] MEDS: DOCUSATE SODIUM 50 MG/SENNA 8.6 MG TAB PO SCH ×2 (08:55→21:51)
[2016-12-11] MEDS: buPROPion HCL 150 MG SUSTAINED RELEASE TAB PO SCH (08:55)
[2016-12-11] MEDS: NYSTATIN 100,000 U/GM PWD 15 GM BTL TOPICAL SCH ×2 (09:00→23:10)
[2016-12-11] MEDS: COLLAGENASE OINT 30 GM TUBE TOPICAL SCH (09:00)
[2016-12-11] MEDS: ALPRAZolam 1 MG TAB PO PRN ×3 (09:11→22:04)
[2016-12-11] MEDS: MAGNESIUM CITRATE SOLN 300 ML BTL PO PRN (09:11)
[2016-12-11 09:50] VITALS: O2SAT 94
[2016-12-11] MEDS: SODIUM CHLORIDE 0.9% FLUSH 10 ML FLUSH IV FLUSH SCH ×2 (10:10→22:06)
[2016-12-11 12:00] VITALS: BP 129/59; PULSE 85; RESP 16; TEMP 96.9; O2SAT 92
[2016-12-11 16:00] VITALS: BP 128/54; PULSE 78; RESP 16; TEMP 97.8; O2SAT 94
[2016-12-11] MEDS: ERTAPENEM INJ 1,000 MG in SODIUM CHLORIDE 0.9% INJ 100 ML IV SCH (16:01)
[2016-12-11] MEDS: diphenhydrAMINE HCL 2%/ZINC ACETATE 0.1% CREAM 30 APPLIC/30 GM TUBE TOPICAL PRN (16:09)
[2016-12-11] MEDS: SIMETHICONE 80 MG CHEWABLE TAB CHEW PRN (18:38)
[2016-12-11 20:48] VITALS: BP 133/58; PULSE 92; RESP 20; TEMP 96.6
[2016-12-11] MEDS: traZODone HCL 100 MG TAB PO SCH ×2 (21:00→21:52)
[2016-12-11] MEDS: RIVAROXABAN 20 MG TAB PO SCH (21:51)
[2016-12-11] MEDS: ESCITALOPRAM OXALATE 20 MG TAB PO SCH (21:52)
[2016-12-11] MEDS: TOLTERODINE TARTRATE 2 MG CAP LA PO SCH (21:52)
[2016-12-11] MEDS: ZOLPIDEM TARTRATE 5 MG TAB PO PRN (22:04)
[2016-12-12] VITALS (7 sets, daily range): BP systolic 95–130; BP diastolic 51–73; PULSE 73–103; RESP 16–20; TEMP 96–97.9; O2SAT 91–97
[2016-12-12] MEDS: MORPHINE SULFATE 30 MG CONTROLLED RELEASE TAB PO SCH ×3 (02:31→17:13)
[2016-12-12] MEDS: MORPHINE SULFATE 100 MG CONTROLLED RELEASE TAB PO SCH ×3 (02:31→17:12)
[2016-12-12] MEDS: BACLOFEN 20 MG TAB PO PRN ×2 (02:36→12:15)
[2016-12-12] MEDS: MIDODRINE 5 MG TAB PO SCH ×3 (05:48→20:10)
[2016-12-12] MEDS: ALPRAZolam 1 MG TAB PO PRN ×2 (05:49→12:16)
[2016-12-12] MEDS: INSULIN ASPART SUPPLEMENTAL SCALE SQ SCH ×4 (05:54→20:18)
[2016-12-12] MEDS: LEVOTHYROXINE SODIUM 50 MCG TAB PO SCH (05:55)
[2016-12-12] MEDS: COLLAGENASE OINT 30 GM TUBE TOPICAL SCH (09:00)
[2016-12-12] MEDS: FAMOTIDINE 20 MG TAB PO SCH (09:00)
[2016-12-12] MEDS: POVIDONE IODINE 10% OINT 30 GM TUBE TOPICAL SCH (09:00)
--- NOTE | 2016-12-12 09:03 | HHI.PR ---
Subjective Remarks in no acute distress. more cooperative today. no fever. has mild pain to the left flank. otherwise no other new complaints. Objective Vitals Vital Signs Date Time Temp Pulse Resp B/P Pulse Ox O2 Delivery O2 Flow Rate FiO2 12/12/16 08:00 97.0 88 18 103/55 91 12/12/16 03:31 18 12/12/16 03:31 18 12/12/16 00:00 96.0 103 20 130/73 93 12/11/16 23:05 18 12/11/16 20:48 96.6 92 20 133/58 12/11/16 16:00 97.8 78 16 128/54 94 12/11/16 12:00 96.9 85 16 129/59 92 12/11/16 09:50 94 21 I/O 12/11/16 12/11/16 12/11/16 12/12/16 12/12/16 12/12/16 07:00 15:00 23:00 07:00 15:00 23:00 Intake Total 360 ml 1600 ml 360 ml 360 ml Output Total 2 ml Balance 360 ml 1598 ml 360 ml 360 ml Intake Oral 360 ml 1600 ml 360 ml 360 ml IV Total 0 ml Output Urine Total 2 ml # Voids 3 3 3 # Bowel Movements 0 0 0 0 Objective Remarks GENERAL: morbidly obese, in no apparent distress. CARDIOVASCULAR: Regular rate and regular rhythm without murmurs, gallops, or rubs. RESPIRATORY: Clear to auscultation. Breath sounds equal bilaterally. No wheezes , rales, or rhonchi. GASTROINTESTINAL: Abdomen soft, non-tender, nondistended. Normal, active bowel sounds MUSCULOSKELETAL: Extremities without clubbing, cyanosis, or edema. NEURO: Alert & Oriented x4 to person, place, time, situation. Moves all ext x4 Procedures 11/25- S/P flexible cystoscopy with replacement of kyle catheter (Councill catheter) Medications and IVs Current Medications Insulin Human Regular (NovoLIN R INJ) 10 units ONCE ONCE SQ Last administered on 11/10/16 21:05; Start 11/10/16 at 16:00; Stop 11/10/16 at 16:01; Status DC Sodium Chloride (NS Flush) 2 ml UNSCH PRN IV FLUSH FLUSH AFTER USING IV ACCESS Last administered on 11/28/16 07:09; Start 11/10/16 at 21:45 Sodium Chloride (NS Flush) 2 ml BID IV FLUSH Last administered on 12/11/16 22: 06; Start 11/11/16 at 09:00 Naloxone HCl (Narcan Inj) 0.4 mg UNSCH PRN IV SEE LABEL COMMENTS; Start at 21:45 Albuterol Sulfate (Albuterol Neb) 2.5 mg Q6HR ALT NEB PRN NEB SHORTNESS OF BREATH; Start 11/11/16 at 02:00 Alprazolam (Xanax) 2 mg Q6HR PRN PO BELÉN Last administered on 12/12/16 05:49; Start 11/11/16 at 02:00 Ascorbic Acid (Vitamin C) 500 mg BID PO Last administered on 12/11/16 21:52; Start 11/11/16 at 09:00 Atorvastatin Calcium (Lipitor) 40 mg DAILY PO Last administered on 12/11/16 08 :53; Start 11/11/16 at 09:00 Baclofen (Lioresal) 20 mg Q6HR PRN PO MUSCLE SPASM Last administered on 02:36; Start 11/11/16 at 02:00 Bupropion HCl (Wellbutrin Xl 24 Hr) 150 mg DAILY PO ; Start 11/11/16 at 09:00; Status UNV Bupropion HCl (Wellbutrin Sr) 150 mg BID PO Last administered on 11/24/16 10: 23; Start 11/11/16 at 09:00; Stop 11/24/16 at 14:19; Status DC Chlorhexidine Gluconate (Peridex 0.12% Liq) 10 ml BID PRN SWISH-SPIT peridontitis; Start 11/11/16 at 02:00 Clotrimazole (Lotrimin 1% Cream) 1 applic DAILY PRN TOPICAL RASH IN SKIN FOLDS Last administered on 12/05/16 11:50; Start 11/11/16 at 02:00 Collagenase (Santyl Oint) 1 applic Q8HR TOPICAL Last administered on 11/23/16 12:12; Start 11/11/16 at 06:00; Stop 11/23/16 at 12:34; Status DC Escitalopram Oxalate (Lexapro) 20 mg HS PO Last administered on 11/13/16 21:18 ; Start 11/11/16 at 21:00; Stop 11/14/16 at 15:43; Status DC Furosemide (Lasix) 40 mg BID PO Last administered on 11/28/16 08:34; Start at 09:00; Status Hold Insulin Detemir (Levemir Inj) 55 units HS SQ Last administered on 11/19/16 21: 43; Start 11/11/16 at 21:00; Stop 11/19/16 at 22:31; Status DC Levothyroxine Sodium (Synthroid) 50 mcg DAILY@06 PO Last administered on 06:09; Start 11/11/16 at 06:00 Morphine Sulfate (Oramorph Sr) 30 mg Q8H PO Last administered on 12/12/16 02:31 ; Start 11/11/16 at 02:00 Morphine Sulfate (Oramorph Sr) 100 mg Q8H PO Last administered on 12/12/16 02: 31; Start 11/11/16 at 02:00 Potassium Chloride (KCl) 20 meq DAILY PO Last administered on 11/16/16 08:47; Start 11/11/16 at 09:00; Status Hold Promethazine HCl (Phenergan) 25 mg Q8HR PRN PO Nausea/Vomiting; Start 11/11/16 at 02:00 Famotidine (Pepcid) 20 mg DAILY PO Last administered on 12/06/16 08:31; Start 11/11/16 at 09:00 Rivaroxaban (Xarelto) 20 mg HS PO Last administered on 12/11/16 21:51; Start 11/11/16 at 21:00 Simethicone (Mylicon Chew) 160 mg ACHS PRN CHEW GAS RETENTION Last administered on 12/11/16 18:38; Start 11/11/16 at 02:00 Trazodone HCl (Desyrel) 200 mg HS PO Last administered on 11/13/16 21:17; Start 11/11/16 at 21:00; Stop 11/14/16 at 10:19; Status DC Zolpidem Tartrate (Ambien) 10 mg HS PO Last administered on 12/09/16 22:44; Start 11/11/16 at 21:00; Stop 12/10/16 at 16:13; Status DC Tolterodine Tartrate (Detrol La) 2 mg HS PO Last administered on 12/11/16 21: 52; Start 11/11/16 at 21:00 Oxycodone HCl (Roxicodone) 30 mg Q4H PRN PO PAIN Last administered on 09:01; Start 11/11/16 at 04:00; Stop 12/04/16 at 11:36; Status DC Hydromorphone HCl 0.5 mg 0.5 mg Q4H PRN IV PUSH breakthrough pain Last administered on 11/16/16 16:41; Start 11/11/16 at 02:15; Stop 11/16/16 at 22:41; Status DC Levofloxacin/ Dextrose (Levaquin 750 Mg Premix Inj) 150 ml @ 100 mls/hr Q24H IV Last administered on 11/14/16 03:44; Start 11/11/16 at 03:00; Stop 11/14/16 at 10:19; Status DC Bupropion HCl (Wellbutrin Sr 12 Hr) 150 mg DAILY PO ; Start 11/11/16 at 09:00; Status Cancel Bupropion HCl (Wellbutrin Sr) 150 mg DAILY PO Last administered on 11/11/16 12 :45; Start 11/11/16 at 09:00; Stop 11/12/16 at 07:22; Status DC Ondansetron HCl (Zofran Inj) 4 mg Q6HR PRN IV PUSH NAUSEA Last administered on 12/06/16 17:36; Start 11/11/16 at 03:15 Dextrose (D50w (Vial) Inj) 25 ml UNSCH PRN IV PUSH HYPOGLYCEMIA-SEE COMMENTS; Start 11/12/16 at 11:45 Glucagon (Glucagon Inj) 1 mg UNSCH PRN OTHER HYPOGLYCEMIA-SEE COMMENTS; Start 11/12/16 at 11:45 Insulin Aspart (NovoLOG SUPPLEMENTAL SCALE) 1 ACHS SLIDING SCALE SQ Last administered on 12/12/16 05:54; Start 11/12/16 at 16:00 Docusate Sodium (Colace) 100 mg BID PO Last administered on 12/09/16 22:45; Start 11/13/16 at 21:00; Stop 12/10/16 at 16:04; Status DC Magnesium Citrate (Citroma Liq) 600 ml Q24H PRN PO CONSTIPATION Last administered on 12/11/16 09:11; Start 11/13/16 at 14:45 Nystatin (Mycostatin Powder) 1 applic BID TOPICAL Last administered on 23:10; Start 11/13/16 at 21:00 Levofloxacin (Levaquin) 500 mg DAILY@11 PO Last administered on 11/21/16 10:53 ; Start 11/15/16 at 11:00; Stop 11/22/16 at 10:59; Status DC Trazodone HCl (Desyrel) 100 mg HS PO Last administered on 11/16/16 20:32; Start 11/14/16 at 21:00; Stop 11/16/16 at 22:40; Status DC Trazodone HCl (Desyrel) 200 mg HS PO Last administered on 12/11/16 21:52; Start 11/17/16 at 21:00 Hydromorphone HCl (Dilaudid Pf Inj) 1 mg Q4H PRN IV PUSH breakthrough pain Last administered on 11/29/16 10:31; Start 11/17/16 at 02:15; Stop 11/29/16 at 12:37; Status DC Trazodone HCl (Desyrel) 100 mg ONCE ONCE PO Last administered on 11/16/16 23: 54; Start 11/16/16 at 22:45; Stop 11/16/16 at 22:46; Status DC Acetaminophen (Tylenol) 650 mg Q4H PRN PO Headache, fever Last administered on 12/09/16 08:49; Start 11/18/16 at 17:30 Insulin Detemir (Levemir Inj) 30 units BID SQ Last administered on 11/20/16 09: 20; Start 11/20/16 at 09:00; Stop 11/20/16 at 11:16; Status DC Insulin Aspart (NovoLOG INJ) 6 units TIDAC SQ Last administered on 11/30/16 11 :10; Start 11/20/16 at 08:00; Stop 11/30/16 at 15:15; Status DC Insulin Detemir (Levemir Inj) 35 units BID SQ Last administered on 11/30/16 10 :40; Start 11/20/16 at 21:00; Stop 11/30/16 at 15:16; Status DC Collagenase (Santyl Oint) 1 applic DAILY TOPICAL Last administered on 08:33; Start 11/23/16 at 12:45 Povidone Iodine (Betadine 10% Oint) 1 pkt DAILY TOPICAL ; Start 11/23/16 at 12: 45; Stop 11/23/16 at 18:32; Status DC Povidone Iodine (Betadine 10% Oint) 1 applic DAILY TOPICAL Last administered on 12/10/16 20:20; Start 11/23/16 at 18:32 Insulin Human Regular (NovoLIN R INJ) 10 units ONCE ONCE IV PUSH Last administered on 11/23/16 22:28; Start 11/23/16 at 20:45; Stop 11/23/16 at 20:46 ; Status DC Bupropion HCl 200 mg 200 mg BID PO Last administered on 11/29/16 09:11; Start 11/24/16 at 21:00; Stop 12/10/16 at 16:11; Status DC Lactated Ringer's 1,000 ml @ 30 mls/hr Q24H PRN IV SEE LABEL COMMENTS; Start at 08:30; Stop 11/28/16 at 08:31; Status DC Sodium Chloride (NS 500 ml Inj) 500 ml @ 30 mls/hr [id number] PRN IV SEE LABEL COMMENTS; Start 11/25/16 at 08:30; Stop 11/28/16 at 08:31; Status DC Metoprolol Tartrate (Lopressor) 25 mg [place] PRN PO SEE LABEL COMMENTS; Start 11/25/16 at 08:30; Stop 11/28/16 at 08:31; Status DC Povidone Iodine (Betadine 5% Antisepsis Kit) 1 applic [place] PRN EACH NARE SEE LABEL COMMENTS; Start 11/25/16 at 08:30; Stop 11/28/16 at 08:31; Status DC Chlorhexidine Gluconate (Chlorhexidine 2% Cloth) 3 pack [place] PRN TOPICAL SEE LABEL COMMENTS; Start 11/25/16 at 08:30; Stop 11/28/16 at 08:31; Status DC Insulin Human Regular (NovoLIN R INJ) See Protocol Table ... [place] PRN SQ SEE PROTOCOL TABLE; Start 11/25/16 at 08:30; Stop 11/28/16 at 08:31; Status DC Oxybutynin Chloride (Ditropan) 5 mg Q12HR PO Last administered on 12/11/16 21: 52; Start 11/28/16 at 14:00 Hydromorphone HCl (Dilaudid Pf Inj) 1.5 mg Q4H PRN IV PUSH breakthrough pain Last administered on 12/04/16 11:21; Start 11/29/16 at 14:15; Stop 12/04/16 at 11:36; Status DC Miscellaneous Medication (ASP Crit: Doc allergy to Penicillin/ Cephalosp) 1 UNSCH X1 PRN .XX PHARMACY DOCUMENTATION; Start 11/29/16 at 15:30; Stop at 15:29; Status DC Miscellaneous Medication 1 1 UNSCH X1 PRN XX PHARMACY DOCUMENTATION; Start at 15:30; Stop 11/30/16 at 15:29; Status DC Meropenem/Sodium Chloride (Merrem Inj/NS Inj) 100 ml @ 200 mls/hr Q8H IV Last administered on 12/01/16 09:21; Start 11/29/16 at 16:00; Stop 12/01/16 at 14:34 ; Status DC Miscellaneous Medication 1 1 UNSCH X1 PRN XX PHARMACY DOCUMENTATION; Start at 15:30; Stop 11/30/16 at 15:29; Status DC Linezolid 300 ml @ 300 mls/hr Q12H IV Last administered on 12/01/16 04:12; Start 11/29/16 at 16:00; Stop 12/01/16 at 14:34; Status DC Fluconazole/ Sodium Chloride (Diflucan 400 Mg Premix Bag) 200 ml @ 100 mls/hr Q24H IV Last administered on 11/30/16 18:42; Start 11/29/16 at 18:00; Stop at 14:34; Status DC Insulin Aspart (NovoLOG INJ) 12 units TIDAC SQ Last administered on 11/30/16 18:43; Start 11/30/16 at 17:00; Status Hold Insulin Detemir (Levemir Inj) 40 units BID SQ Last administered on 12/01/16 09 :23; Start 11/30/16 at 21:00; Stop 12/01/16 at 17:30; Status DC Midodrine (Proamatine) 10 mg Q8HR PO Last administered on 12/12/16 05:48; Start 11/30/16 at 21:00 Miscellaneous Medication (ASP Crit: Doc ESBL, MDR A baumannii or P aer) 1 UNSCH X1 PRN .XX PHARMACY DOCUMENTATION; Start 12/01/16 at 14:45; Stop 12/02/16 at 14 :44; Status DC Miscellaneous Medication 1 1 UNSCH X1 PRN XX PHARMACY DOCUMENTATION; Start at 14:45; Stop 12/02/16 at 14:44; Status DC Ertapenem/Sodium Chloride (INVanz INJ/NS Inj) 100 ml @ 200 mls/hr Q24H IV Last administered on 12/11/16 16:01; Start 12/01/16 at 16:00 Insulin Detemir 20 units 20 units BID SQ Last administered on 12/11/16 22:06; Start 12/01/16 at 21:00 Sodium Chloride (NS 1000 ml Inj) 1,000 ml @ 1,000 mls/hr Q1H IV Last administered on 12/02/16 01:00; Start 12/02/16 at 00:00; Stop 12/02/16 at 01:59 ; Status DC Albumin Human (Albumin 5% Inj) 25 gm ONCE ONCE IV Last administered on 00:30; Start 12/02/16 at 00:00; Stop 12/02/16 at 00:07; Status DC Hydromorphone HCl (Dilaudid Pf Inj) 1 mg Q4H PRN IV PUSH breakthrough pain; Start 12/04/16 at 11:45; Stop 12/04/16 at 11:45; Status DC Hydromorphone HCl (Dilaudid Pf Inj) 1 mg Q4H PRN IV PUSH breakthrough pain Last administered on 12/06/16 12:22; Start 12/04/16 at 14:15; Stop 12/06/16 at 12:32; Status DC Oxycodone HCl (Roxicodone) 30 mg Q4H PRN PO PAIN SCALE 8 TO 10 Last administered on 12/12/16 05:49; Start 12/06/16 at 12:30 Bupropion HCl (Wellbutrin Sr) 150 mg DAILY PO Last administered on 12/11/16 08 :55; Start 12/10/16 at 16:15 Escitalopram Oxalate (Lexapro) 20 mg HS PO Last administered on 12/11/16 21:52 ; Start 12/10/16 at 21:00 Senna/Docusate Sodium (Erin-Colace) 1 tab BID PO Last administered on 21:51; Start 12/10/16 at 21:00 Zolpidem Tartrate (Ambien) 5 mg HS PRN PO INSOMNIA Last administered on 22:04; Start 12/10/16 at 21:00 Multi-Ingredient Ointment (Eucerin Cream) 1 applic ONCE ONCE TOPICAL Last administered on 12/11/16 00:54; Start 12/11/16 at 00:00; Stop 12/11/16 at 00:01 ; Status DC Diphenhydramine HCl (Benadryl 2% Cream) 1 applic TID PRN TOPICAL ITCHING Last administered on 12/11/16 16:09; Start 12/11/16 at 08:15 Trazodone HCl (Desyrel) 200 mg HS PO ; Start 12/11/16 at 21:00 Date of Insertion: Nov 25, 2016 A/P Assessment and Plan A/P Neurogenic Bladder Sepsis- source likely UTI- ESBL hypotension Better BP readings- continue Midodrine S/P Tx for UTI - S/p Levaquin 500 mg course 11/22/2016 S/P replacement of Kyle catheter by Dr. Meraz- 11/25. On Oxybutynin 5mg bid. Kyle leaking, nursing called Urology 12/10, likely to be changed tomorrow, may need to go to OR. Blood cultures- negative x5 days Ertapenem for 14 days per ID recommendation ; will dc tomorrow. Diabetes Mellitus: insulin requiring- - reinforced and encourage - Monitor Accu-Cheks, Continue sliding scale insulin.- - on Levemir 20 units BID. - continue to monitor and adjust Chronic pain. Home medications baclofen, morphine, oxycodone. -dc'ed IV Dilaudid and restarted his home Roxicodone 12/10- continue Oramorph. Insomnia: Home medications Ambien PRN & Trazadone 200 qHS Morbid obesity: Outpatient general surgery referral needed for possible surgical interventions Chronic pressure ulcers: Wound care team ff- however refused the wound care. Documented on admission. Patient turning himself rigorously Sleep apnea, CPAP at night Anxiety and depression: no homicidal or suicidal ideations Was evaluated by psych in the ER, Felipe acted lifted, did not meet inpatient psychiatric and admission criteria. -Patient has long history of being on psychiatric medication, currently doing well on Lexapro . Previously was on [place] and did not do well with mood on this. -He would like to discuss his options for medications with psychiatry. Also would like to discuss prior psychiatric history -Psychiatry consulted. Hyperlipidemia: Continue Lipitor Hypothyroidism: Continue levothyroxine chronic pain - on chronic pain meds- as noted above. Substance use: tox screen on admission significant for opiates, benzos, cannabinoids Full code. On Xarelto consulted palliative care.however patient refused to talk with them . Discharge Planning no accepting facility yet. Juan Diego Zambrano MD December 12, 2016 09:03 Juan Diego Zambrano MD December 12, 2016 09:03
[2016-12-12] MEDS: buPROPion HCL 150 MG SUSTAINED RELEASE TAB PO SCH (09:18)
[2016-12-12] MEDS: DOCUSATE SODIUM 50 MG/SENNA 8.6 MG TAB PO SCH ×2 (09:18→20:10)
[2016-12-12] MEDS: ASCORBIC ACID 500 MG TAB PO SCH ×2 (09:18→20:10)
[2016-12-12] MEDS: OXYBUTYNIN CHLORIDE 5 MG TAB PO SCH ×2 (09:18→20:10)
[2016-12-12] MEDS: ATORVASTATIN 40 MG TAB PO SCH (09:19)
[2016-12-12] MEDS: INSULIN DETEMIR 100 UNITS/ML VIAL SQ SCH ×2 (09:22→21:34)
[2016-12-12] MEDS: NYSTATIN 100,000 U/GM PWD 15 GM BTL TOPICAL SCH ×2 (09:28→20:19)
[2016-12-12] MEDS: SODIUM CHLORIDE 0.9% FLUSH 10 ML FLUSH IV FLUSH SCH ×2 (09:33→20:15)
[2016-12-12 13:10] LABS: CRITICAL VALUE YES; DRAW SITE RT RADIAL; FIO2 21 %; NUMBER OF ARTERIAL PUNCTURES 1; OXYGEN DEVICE ROOM AIR; STAT YES; ULNAR PULSE PRESENT
--- NOTE | 2016-12-12 13:18 | HHI.PYPN ---
Subjective Remarks Patient seen for psychiatric evaluation, found sleeping, very difficult to arouse, once awakened oppositional, irritable, he reports "ok" mood, but having hard time dealing with anxiety during the day. Patient says that he feels claustrophobic and uncomfortable in the hospital "I have been here too long, I feel anxious during the day, medication that you're giving me is not enough". He denies suicidal or homicidal ideation, he denies visual and auditory hallucinations. Patient is oriented 3. Review of Systems Other No somatic complaints Objective Alert: Yes [place]: Person, Place, Date, Situation Mood: Oppositional Affect: Restricted Memory Intact: Immediate, Recent, Remote Hallucinations: Other (none) Delusions: No Delusion Type: Other (none) Suicidal: Ideation (he denies) Homicidal: Ideation (he denies) Insight/Judgment Fair Vitals/IOs Vital Signs Date Time Temp Pulse Resp B/P Pulse Ox O2 Delivery O2 Flow Rate FiO2 12/12/16 12:00 96.1 92 18 109/55 93 12/12/16 09:18 Nasal Cannula 3.00 12/11/16 09:50 21 Intake and Output 12/11/16 12/11/16 12/12/16 08:00 16:00 00:00 Intake Total 360 ml 1600 ml 360 ml Output Total 2 ml Balance 360 ml 1598 ml 360 ml Assessment & Plan Problem List: (1) Adult antisocial behavior ICD Code: Z72.811 (2) Unspecified personality disorder ICD Code: F60.9 (3) PTSD (post-traumatic stress disorder) Assessment & Plan: Will continue current psychotropics add gabapentin 300 mg 3 times a day to help with anxiety and pain at the same time. ICD Code: F43.10 Assessment & Plan Estimated LOS: days Justification for Cont. Inpt. Patient does not meet criteria for psychotic admission at this moment. Luis Antnoio Blanchard MD December 12, 2016 13:18
[2016-12-12] MEDS: SIMETHICONE 80 MG CHEWABLE TAB CHEW PRN (13:40)
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
[2016-12-12] MEDS: GABAPENTIN 300 MG CAP PO SCH (17:13)
[2016-12-12] MEDS: ERTAPENEM INJ 1,000 MG in SODIUM CHLORIDE 0.9% INJ 100 ML IV SCH (17:14)
[2016-12-12] MEDS: RIVAROXABAN 20 MG TAB PO SCH (20:10)
[2016-12-12] MEDS: ESCITALOPRAM OXALATE 20 MG TAB PO SCH (20:10)
[2016-12-12] MEDS: TOLTERODINE TARTRATE 2 MG CAP LA PO SCH (20:10)
[2016-12-12] MEDS: traZODone HCL 100 MG TAB PO SCH (21:00)
[2016-12-13] VITALS: BP 125/59; PULSE 94; RESP 20; TEMP 96.8; O2SAT 94
[2016-12-13] MEDS: traZODone HCL 100 MG TAB PO SCH ×3 (01:13→21:00)
[2016-12-13] MEDS: BACLOFEN 20 MG TAB PO PRN ×3 (01:14→17:42)
[2016-12-13] MEDS: ALPRAZolam 1 MG TAB PO PRN ×3 (01:14→17:41)
[2016-12-13] MEDS: MAGNESIUM CITRATE SOLN 300 ML BTL PO PRN (01:45)
[2016-12-13] MEDS: MORPHINE SULFATE 100 MG CONTROLLED RELEASE TAB PO SCH ×3 (01:46→17:42)
[2016-12-13] MEDS: ZOLPIDEM TARTRATE 5 MG TAB PO PRN (01:46)
[2016-12-13] MEDS: MORPHINE SULFATE 30 MG CONTROLLED RELEASE TAB PO SCH ×3 (01:46→17:42)
[2016-12-13] MEDS: SIMETHICONE 80 MG CHEWABLE TAB CHEW PRN ×2 (01:52→20:57)
[2016-12-13] MEDS: MIDODRINE 5 MG TAB PO SCH ×3 (05:31→20:57)
[2016-12-13] MEDS: LEVOTHYROXINE SODIUM 50 MCG TAB PO SCH (05:31)
[2016-12-13] MEDS: INSULIN ASPART SUPPLEMENTAL SCALE SQ SCH ×4 (06:29→21:03)
[2016-12-13 08:00] VITALS: BP 113/53; PULSE 86; RESP 16; TEMP 96.6; O2SAT 94
--- NOTE | 2016-12-13 08:37 | HHI.PR ---
Subjective Remarks in no acute distress. no fever. pain seems to be fairly controlled. urine cath keeps leaking. d/w the RN. Objective Vitals Vital Signs Date Time Temp Pulse Resp B/P Pulse Ox O2 Delivery O2 Flow Rate FiO2 12/13/16 00:00 96.8 94 20 125/59 94 12/12/16 21:46 93 Nasal Cannula 21 12/12/16 20:00 97.9 73 19 95/59 97 12/12/16 16:00 96.9 84 16 105/51 94 12/12/16 12:00 96.1 92 18 109/55 93 12/12/16 09:18 92 Nasal Cannula 3.00 I/O 12/12/16 12/12/16 12/12/16 12/13/16 12/13/16 12/13/16 07:00 15:00 23:00 07:00 15:00 23:00 Intake Total 360 ml 1800 ml 360 ml 480 ml Output Total 1000 ml 700 ml Balance 360 ml 800 ml 360 ml -220 ml Intake Oral 360 ml 1800 ml 360 ml 480 ml IV Total 0 ml 0 ml 0 ml Output Urine Total 1000 ml 700 ml # Voids 3 3 2 3 # Bowel Movements 0 0 0 0 Objective Remarks GENERAL: morbidly obese, in no apparent distress. CARDIOVASCULAR: Regular rate and regular rhythm without murmurs, gallops, or rubs. RESPIRATORY: Clear to auscultation. Breath sounds equal bilaterally. No wheezes , rales, or rhonchi. GASTROINTESTINAL: Abdomen soft, non-tender, nondistended. Normal, active bowel sounds MUSCULOSKELETAL: Extremities without clubbing, cyanosis, or edema. NEURO: Alert & Oriented x4 to person, place, time, situation. Moves all ext x4 Procedures 11/25- S/P flexible cystoscopy with replacement of kyle catheter (Councill catheter) Medications and IVs Current Medications Insulin Human Regular (NovoLIN R INJ) 10 units ONCE ONCE SQ Last administered on 11/10/16 21:05; Start 11/10/16 at 16:00; Stop 11/10/16 at 16:01; Status DC Sodium Chloride (NS Flush) 2 ml UNSCH PRN IV FLUSH FLUSH AFTER USING IV ACCESS Last administered on 11/28/16 07:09; Start 11/10/16 at 21:45 Sodium Chloride (NS Flush) 2 ml BID IV FLUSH Last administered on 12/12/16 20: 15; Start 11/11/16 at 09:00 Naloxone HCl (Narcan Inj) 0.4 mg UNSCH PRN IV SEE LABEL COMMENTS; Start at 21:45 Albuterol Sulfate (Albuterol Neb) 2.5 mg Q6HR ALT NEB PRN NEB SHORTNESS OF BREATH; Start 11/11/16 at 02:00 Alprazolam (Xanax) 2 mg Q6HR PRN PO BELÉN Last administered on 12/13/16 01:14; Start 11/11/16 at 02:00 Ascorbic Acid (Vitamin C) 500 mg BID PO Last administered on 12/12/16 20:10; Start 11/11/16 at 09:00 Atorvastatin Calcium (Lipitor) 40 mg DAILY PO Last administered on 12/12/16 09: 19; Start 11/11/16 at 09:00 Baclofen (Lioresal) 20 mg Q6HR PRN PO MUSCLE SPASM Last administered on 01:14; Start 11/11/16 at 02:00 Bupropion HCl (Wellbutrin Xl 24 Hr) 150 mg DAILY PO ; Start 11/11/16 at 09:00; Status UNV Bupropion HCl (Wellbutrin Sr) 150 mg BID PO Last administered on 11/24/16 10: 23; Start 11/11/16 at 09:00; Stop 11/24/16 at 14:19; Status DC Chlorhexidine Gluconate (Peridex 0.12% Liq) 10 ml BID PRN SWISH-SPIT peridontitis; Start 11/11/16 at 02:00 Clotrimazole (Lotrimin 1% Cream) 1 applic DAILY PRN TOPICAL RASH IN SKIN FOLDS Last administered on 12/05/16 11:50; Start 11/11/16 at 02:00 Collagenase (Santyl Oint) 1 applic Q8HR TOPICAL Last administered on 11/23/16 12:12; Start 11/11/16 at 06:00; Stop 11/23/16 at 12:34; Status DC Escitalopram Oxalate (Lexapro) 20 mg HS PO Last administered on 11/13/16 21:18 ; Start 11/11/16 at 21:00; Stop 11/14/16 at 15:43; Status DC Furosemide (Lasix) 40 mg BID PO Last administered on 11/28/16 08:34; Start at 09:00; Status Hold Insulin Detemir (Levemir Inj) 55 units HS SQ Last administered on 11/19/16 21: 43; Start 11/11/16 at 21:00; Stop 11/19/16 at 22:31; Status DC Levothyroxine Sodium (Synthroid) 50 mcg DAILY@06 PO Last administered on 06:09; Start 11/11/16 at 06:00 Morphine Sulfate (Oramorph Sr) 30 mg Q8H PO Last administered on 12/13/16 01:46 ; Start 11/11/16 at 02:00 Morphine Sulfate (Oramorph Sr) 100 mg Q8H PO Last administered on 12/13/16 01: 46; Start 11/11/16 at 02:00 Potassium Chloride (KCl) 20 meq DAILY PO Last administered on 11/16/16 08:47; Start 11/11/16 at 09:00; Status Hold Promethazine HCl (Phenergan) 25 mg Q8HR PRN PO Nausea/Vomiting; Start 11/11/16 at 02:00 Famotidine (Pepcid) 20 mg DAILY PO Last administered on 12/06/16 08:31; Start 11/11/16 at 09:00 Rivaroxaban (Xarelto) 20 mg HS PO Last administered on 12/12/16 20:10; Start at 21:00 Simethicone (Mylicon Chew) 160 mg ACHS PRN CHEW GAS RETENTION Last administered on 12/13/16 01:52; Start 11/11/16 at 02:00 Trazodone HCl (Desyrel) 200 mg HS PO Last administered on 11/13/16 21:17; Start 11/11/16 at 21:00; Stop 11/14/16 at 10:19; Status DC Zolpidem Tartrate (Ambien) 10 mg HS PO Last administered on 12/09/16 22:44; Start 11/11/16 at 21:00; Stop 12/10/16 at 16:13; Status DC Tolterodine Tartrate (Detrol La) 2 mg HS PO Last administered on 12/12/16 20:10 ; Start 11/11/16 at 21:00 Oxycodone HCl (Roxicodone) 30 mg Q4H PRN PO PAIN Last administered on 09:01; Start 11/11/16 at 04:00; Stop 12/04/16 at 11:36; Status DC Hydromorphone HCl 0.5 mg 0.5 mg Q4H PRN IV PUSH breakthrough pain Last administered on 11/16/16 16:41; Start 11/11/16 at 02:15; Stop 11/16/16 at 22:41; Status DC Levofloxacin/ Dextrose (Levaquin 750 Mg Premix Inj) 150 ml @ 100 mls/hr Q24H IV Last administered on 11/14/16 03:44; Start 11/11/16 at 03:00; Stop 11/14/16 at 10:19; Status DC Bupropion HCl (Wellbutrin Sr 12 Hr) 150 mg DAILY PO ; Start 11/11/16 at 09:00; Status Cancel Bupropion HCl (Wellbutrin Sr) 150 mg DAILY PO Last administered on 11/11/16 12 :45; Start 11/11/16 at 09:00; Stop 11/12/16 at 07:22; Status DC Ondansetron HCl (Zofran Inj) 4 mg Q6HR PRN IV PUSH NAUSEA Last administered on 12/06/16 17:36; Start 11/11/16 at 03:15 Dextrose (D50w (Vial) Inj) 25 ml UNSCH PRN IV PUSH HYPOGLYCEMIA-SEE COMMENTS; Start 11/12/16 at 11:45 Glucagon (Glucagon Inj) 1 mg UNSCH PRN OTHER HYPOGLYCEMIA-SEE COMMENTS; Start 11/12/16 at 11:45 Insulin Aspart (NovoLOG SUPPLEMENTAL SCALE) 1 ACHS SLIDING SCALE SQ Last administered on 12/13/16 06:29; Start 11/12/16 at 16:00 Docusate Sodium (Colace) 100 mg BID PO Last administered on 12/09/16 22:45; Start 11/13/16 at 21:00; Stop 12/10/16 at 16:04; Status DC Magnesium Citrate (Citroma Liq) 600 ml Q24H PRN PO CONSTIPATION Last administered on 12/13/16 01:45; Start 11/13/16 at 14:45 Nystatin (Mycostatin Powder) 1 applic BID TOPICAL Last administered on 09:28; Start 11/13/16 at 21:00 Levofloxacin (Levaquin) 500 mg DAILY@11 PO Last administered on 11/21/16 10:53 ; Start 11/15/16 at 11:00; Stop 11/22/16 at 10:59; Status DC Trazodone HCl (Desyrel) 100 mg HS PO Last administered on 11/16/16 20:32; Start 11/14/16 at 21:00; Stop 11/16/16 at 22:40; Status DC Trazodone HCl (Desyrel) 200 mg HS PO Last administered on 12/13/16 01:13; Start 11/17/16 at 21:00 Hydromorphone HCl (Dilaudid Pf Inj) 1 mg Q4H PRN IV PUSH breakthrough pain Last administered on 11/29/16 10:31; Start 11/17/16 at 02:15; Stop 11/29/16 at 12:37; Status DC Trazodone HCl (Desyrel) 100 mg ONCE ONCE PO Last administered on 11/16/16 23: 54; Start 11/16/16 at 22:45; Stop 11/16/16 at 22:46; Status DC Acetaminophen (Tylenol) 650 mg Q4H PRN PO Headache, fever Last administered on 12/09/16 08:49; Start 11/18/16 at 17:30 Insulin Detemir (Levemir Inj) 30 units BID SQ Last administered on 11/20/16 09: 20; Start 11/20/16 at 09:00; Stop 11/20/16 at 11:16; Status DC Insulin Aspart (NovoLOG INJ) 6 units TIDAC SQ Last administered on 11/30/16 11 :10; Start 11/20/16 at 08:00; Stop 11/30/16 at 15:15; Status DC Insulin Detemir (Levemir Inj) 35 units BID SQ Last administered on 11/30/16 10 :40; Start 11/20/16 at 21:00; Stop 11/30/16 at 15:16; Status DC Collagenase (Santyl Oint) 1 applic DAILY TOPICAL Last administered on 08:33; Start 11/23/16 at 12:45 Povidone Iodine (Betadine 10% Oint) 1 pkt DAILY TOPICAL ; Start 11/23/16 at 12: 45; Stop 11/23/16 at 18:32; Status DC Povidone Iodine (Betadine 10% Oint) 1 applic DAILY TOPICAL Last administered on 12/10/16 20:20; Start 11/23/16 at 18:32 Insulin Human Regular (NovoLIN R INJ) 10 units ONCE ONCE IV PUSH Last administered on 11/23/16 22:28; Start 11/23/16 at 20:45; Stop 11/23/16 at 20:46 ; Status DC Bupropion HCl 200 mg 200 mg BID PO Last administered on 11/29/16 09:11; Start 11/24/16 at 21:00; Stop 12/10/16 at 16:11; Status DC Lactated Ringer's 1,000 ml @ 30 mls/hr Q24H PRN IV SEE LABEL COMMENTS; Start at 08:30; Stop 11/28/16 at 08:31; Status DC Sodium Chloride (NS 500 ml Inj) 500 ml @ 30 mls/hr [id number] PRN IV SEE LABEL COMMENTS; Start 11/25/16 at 08:30; Stop 11/28/16 at 08:31; Status DC Metoprolol Tartrate (Lopressor) 25 mg AUTOMATION MACHINE OPERATOR PRN PO SEE LABEL COMMENTS; Start 11/25/16 at 08:30; Stop 11/28/16 at 08:31; Status DC Povidone Iodine (Betadine 5% Antisepsis Kit) 1 applic AUTOMATION MACHINE OPERATOR PRN EACH NARE SEE LABEL COMMENTS; Start 11/25/16 at 08:30; Stop 11/28/16 at 08:31; Status DC Chlorhexidine Gluconate (Chlorhexidine 2% Cloth) 3 pack AUTOMATION MACHINE OPERATOR PRN TOPICAL SEE LABEL COMMENTS; Start 11/25/16 at 08:30; Stop 11/28/16 at 08:31; Status DC Insulin Human Regular (NovoLIN R INJ) See Protocol Table ... AUTOMATION MACHINE OPERATOR PRN SQ SEE PROTOCOL TABLE; Start 11/25/16 at 08:30; Stop 11/28/16 at 08:31; Status DC Oxybutynin Chloride (Ditropan) 5 mg Q12HR PO Last administered on 12/12/16 20: 10; Start 11/28/16 at 14:00 Hydromorphone HCl (Dilaudid Pf Inj) 1.5 mg Q4H PRN IV PUSH breakthrough pain Last administered on 12/04/16 11:21; Start 11/29/16 at 14:15; Stop 12/04/16 at 11:36; Status DC Miscellaneous Medication (ASP Crit: Doc allergy to Penicillin/ Cephalosp) 1 UNSCH X1 PRN .XX PHARMACY DOCUMENTATION; Start 11/29/16 at 15:30; Stop at 15:29; Status DC Miscellaneous Medication 1 1 UNSCH X1 PRN XX PHARMACY DOCUMENTATION; Start at 15:30; Stop 11/30/16 at 15:29; Status DC Meropenem/Sodium Chloride (Merrem Inj/NS Inj) 100 ml @ 200 mls/hr Q8H IV Last administered on 12/01/16 09:21; Start 11/29/16 at 16:00; Stop 12/01/16 at 14:34 ; Status DC Miscellaneous Medication 1 1 UNSCH X1 PRN XX PHARMACY DOCUMENTATION; Start at 15:30; Stop 11/30/16 at 15:29; Status DC Linezolid 300 ml @ 300 mls/hr Q12H IV Last administered on 12/01/16 04:12; Start 11/29/16 at 16:00; Stop 12/01/16 at 14:34; Status DC Fluconazole/ Sodium Chloride (Diflucan 400 Mg Premix Bag) 200 ml @ 100 mls/hr Q24H IV Last administered on 11/30/16 18:42; Start 11/29/16 at 18:00; Stop at 14:34; Status DC Insulin Aspart (NovoLOG INJ) 12 units TIDAC SQ Last administered on 11/30/16 18:43; Start 11/30/16 at 17:00; Status Hold Insulin Detemir (Levemir Inj) 40 units BID SQ Last administered on 12/01/16 09 :23; Start 11/30/16 at 21:00; Stop 12/01/16 at 17:30; Status DC Midodrine (Proamatine) 10 mg Q8HR PO Last administered on 12/13/16 05:31; Start 11/30/16 at 21:00 Miscellaneous Medication (ASP Crit: Doc ESBL, MDR A baumannii or P aer) 1 UNSCH X1 PRN .XX PHARMACY DOCUMENTATION; Start 12/01/16 at 14:45; Stop 12/02/16 at 14 :44; Status DC Miscellaneous Medication 1 1 UNSCH X1 PRN XX PHARMACY DOCUMENTATION; Start at 14:45; Stop 12/02/16 at 14:44; Status DC Ertapenem/Sodium Chloride (INVanz INJ/NS Inj) 100 ml @ 200 mls/hr Q24H IV Last administered on 12/12/16 17:14; Start 12/01/16 at 16:00; Stop 12/13/16 at 09 :00 Insulin Detemir 20 units 20 units BID SQ Last administered on 12/12/16 21:34; Start 12/01/16 at 21:00 Sodium Chloride (NS 1000 ml Inj) 1,000 ml @ 1,000 mls/hr Q1H IV Last administered on 12/02/16 01:00; Start 12/02/16 at 00:00; Stop 12/02/16 at 01:59 ; Status DC Albumin Human (Albumin 5% Inj) 25 gm ONCE ONCE IV Last administered on 00:30; Start 12/02/16 at 00:00; Stop 12/02/16 at 00:07; Status DC Hydromorphone HCl (Dilaudid Pf Inj) 1 mg Q4H PRN IV PUSH breakthrough pain; Start 12/04/16 at 11:45; Stop 12/04/16 at 11:45; Status DC Hydromorphone HCl (Dilaudid Pf Inj) 1 mg Q4H PRN IV PUSH breakthrough pain Last administered on 12/06/16 12:22; Start 12/04/16 at 14:15; Stop 12/06/16 at 12:32; Status DC Oxycodone HCl (Roxicodone) 30 mg Q4H PRN PO PAIN SCALE 8 TO 10 Last administered on 12/13/16 05:30; Start 12/06/16 at 12:30 Bupropion HCl (Wellbutrin Sr) 150 mg DAILY PO Last administered on 12/12/16 09: 18; Start 12/10/16 at 16:15 Escitalopram Oxalate (Lexapro) 20 mg HS PO Last administered on 12/12/16 20:10 ; Start 12/10/16 at 21:00 Senna/Docusate Sodium (Erin-Colace) 1 tab BID PO Last administered on 12/12/16 20:10; Start 12/10/16 at 21:00 Zolpidem Tartrate (Ambien) 5 mg HS PRN PO INSOMNIA Last administered on 01:46; Start 12/10/16 at 21:00 Multi-Ingredient Ointment (Eucerin Cream) 1 applic ONCE ONCE TOPICAL Last administered on 12/11/16 00:54; Start 12/11/16 at 00:00; Stop 12/11/16 at 00:01 ; Status DC Diphenhydramine HCl (Benadryl 2% Cream) 1 applic TID PRN TOPICAL ITCHING Last administered on 12/11/16 16:09; Start 12/11/16 at 08:15 Trazodone HCl (Desyrel) 200 mg HS PO ; Start 12/11/16 at 21:00 Gabapentin (Neurontin) 300 mg TID PO Last administered on 12/12/16 17:13; Start 12/12/16 at 18:00 Date of Insertion: Nov 25, 2016 A/P Assessment and Plan A/P Neurogenic Bladder Sepsis- source likely UTI- ESBL hypotension-resolved Better BP readings- continue Midodrine S/P Tx for UTI - S/p Levaquin and Ertapenem S/P replacement of Kyle catheter by Dr. Meraz- 11/25. On Oxybutynin 5mg bid. urine cath keeps leaking- nursing to notify the urology today. Blood cultures- negative x5 days Diabetes Mellitus: insulin requiring- - reinforced and encourage - Monitor Accu-Cheks, Continue sliding scale insulin.- - on Levemir 20 units BID. - continue to monitor and adjust Chronic pain. Home medications baclofen, morphine, oxycodone. -dc'ed IV Dilaudid and restarted his home Roxicodone 12/10- continue Oramorph. Insomnia: Home medications Ambien PRN & Trazadone 200 qHS Morbid obesity: Outpatient general surgery referral needed for possible surgical interventions Chronic pressure ulcers: Wound care team ff- however refused the wound care. Documented on admission. Patient turning himself rigorously Sleep apnea, CPAP at night Anxiety and depression: no homicidal or suicidal ideations Was evaluated by psych in the ER, Felipe acted lifted, did not meet inpatient psychiatric and admission criteria. -Patient has long history of being on psychiatric medication, currently doing well on Lexapro . Previously was on Yantis and did not do well with mood on this. -He would like to discuss his options for medications with psychiatry. Also would like to discuss prior psychiatric history -Psychiatry follow-up appreciated. Hyperlipidemia: Continue Lipitor Hypothyroidism: Continue levothyroxine chronic pain - on chronic pain meds- as noted above. Substance use: tox screen on admission significant for opiates, benzos, cannabinoids Full code. On Xarelto -DNR status palliative care following. Discharge Planning difficult discharge. case management notes reviewed. no accepting facility yet. uJan Diego Zambrano MD December 13, 2016 08:37
[2016-12-13] MEDS: POVIDONE IODINE 10% OINT 30 GM TUBE TOPICAL SCH (09:00)
[2016-12-13] MEDS: COLLAGENASE OINT 30 GM TUBE TOPICAL SCH (09:00)
[2016-12-13] MEDS: FAMOTIDINE 20 MG TAB PO SCH (09:00)
[2016-12-13] MEDS: buPROPion HCL 150 MG SUSTAINED RELEASE TAB PO SCH (09:12)
[2016-12-13] MEDS: ATORVASTATIN 40 MG TAB PO SCH (09:12)
[2016-12-13] MEDS: INSULIN DETEMIR 100 UNITS/ML VIAL SQ SCH ×2 (09:13→21:03)
[2016-12-13] MEDS: DOCUSATE SODIUM 50 MG/SENNA 8.6 MG TAB PO SCH ×2 (09:13→20:57)
[2016-12-13] MEDS: GABAPENTIN 300 MG CAP PO SCH ×3 (09:13→17:42)
[2016-12-13] MEDS: OXYBUTYNIN CHLORIDE 5 MG TAB PO SCH ×2 (09:13→21:06)
[2016-12-13] MEDS: ASCORBIC ACID 500 MG TAB PO SCH ×2 (09:13→20:57)
[2016-12-13] MEDS: SODIUM CHLORIDE 0.9% FLUSH 10 ML FLUSH IV FLUSH SCH ×2 (09:14→21:00)
[2016-12-13] MEDS: NYSTATIN 100,000 U/GM PWD 15 GM BTL TOPICAL SCH ×2 (09:14→21:00)
[2016-12-13 12:00] VITALS: BP 95/54; PULSE 78; RESP 17; TEMP 96.4; O2SAT 97
[2016-12-13 16:00] VITALS: BP 135/57; PULSE 97; RESP 17; TEMP 96.7; O2SAT 94
[2016-12-13 20:00] VITALS: BP 118/74; PULSE 86; RESP 20; TEMP 97.4; O2SAT 96
[2016-12-13] MEDS: RIVAROXABAN 20 MG TAB PO SCH (20:57)
[2016-12-13] MEDS: TOLTERODINE TARTRATE 2 MG CAP LA PO SCH (20:57)
[2016-12-13] MEDS: ESCITALOPRAM OXALATE 20 MG TAB PO SCH (20:57)
[2016-12-13 21:35] VITALS: O2SAT 95
[2016-12-14] VITALS (7 sets, daily range): BP systolic 92–123; BP diastolic 51–57; PULSE 82–97; RESP 18–22; TEMP 96.7–98.9; O2SAT 91–96
[2016-12-14] MEDS: MORPHINE SULFATE 100 MG CONTROLLED RELEASE TAB PO SCH ×3 (02:00→18:00)
[2016-12-14] MEDS: MORPHINE SULFATE 30 MG CONTROLLED RELEASE TAB PO SCH ×3 (02:00→18:00)
[2016-12-14] MEDS: ALPRAZolam 1 MG TAB PO PRN (05:45)
[2016-12-14] MEDS: MIDODRINE 5 MG TAB PO SCH ×2 (05:45→13:27)
[2016-12-14] MEDS: BACLOFEN 20 MG TAB PO PRN (05:45)
[2016-12-14] MEDS: INSULIN ASPART SUPPLEMENTAL SCALE SQ SCH ×4 (05:46→21:00)
[2016-12-14] MEDS: LEVOTHYROXINE SODIUM 50 MCG TAB PO SCH (05:47)
[2016-12-14] MEDS: POVIDONE IODINE 10% OINT 30 GM TUBE TOPICAL SCH (09:00)
[2016-12-14] MEDS: NYSTATIN 100,000 U/GM PWD 15 GM BTL TOPICAL SCH (09:00)
[2016-12-14] MEDS: ATORVASTATIN 40 MG TAB PO SCH (09:22)
[2016-12-14] MEDS: DOCUSATE SODIUM 50 MG/SENNA 8.6 MG TAB PO SCH (09:22)
[2016-12-14] MEDS: buPROPion HCL 150 MG SUSTAINED RELEASE TAB PO SCH (09:22)
[2016-12-14] MEDS: INSULIN DETEMIR 100 UNITS/ML VIAL SQ SCH (09:23)
[2016-12-14] MEDS: SODIUM CHLORIDE 0.9% FLUSH 10 ML FLUSH IV FLUSH SCH (09:23)
[2016-12-14] MEDS: ASCORBIC ACID 500 MG TAB PO SCH (09:23)
[2016-12-14] MEDS: FAMOTIDINE 20 MG TAB PO SCH (09:23)
[2016-12-14] MEDS: OXYBUTYNIN CHLORIDE 5 MG TAB PO SCH ×2 (09:23→14:58)
[2016-12-14] MEDS: GABAPENTIN 300 MG CAP PO SCH ×3 (09:23→18:00)
[2016-12-14] MEDS: COLLAGENASE OINT 30 GM TUBE TOPICAL SCH (09:25)
--- NOTE | 2016-12-14 10:24 | HHI.PR ---
Subjective Remarks in no acute distress. no new complaints. no fever. Objective Vitals Vital Signs Date Time Temp Pulse Resp B/P Pulse Ox O2 Delivery O2 Flow Rate FiO2 12/14/16 08:00 98.7 82 19 92/52 91 12/14/16 00:00 96.7 83 18 103/51 91 12/13/16 21:35 95 21 12/13/16 20:00 97.4 86 20 118/74 96 12/13/16 16:00 96.7 97 17 135/57 94 12/13/16 12:00 96.4 78 17 95/54 97 I/O 12/13/16 12/13/16 12/13/16 12/14/16 12/14/16 12/14/16 07:00 15:00 23:00 07:00 15:00 23:00 Intake Total 480 ml 300 ml 480 ml 360 ml Output Total 700 ml 750 ml 600 ml 1800 ml Balance -220 ml -450 ml -120 ml -1440 ml Intake Oral 480 ml 300 ml 480 ml 360 ml IV Total 0 ml 0 ml 0 ml 0 ml Output Urine Total 700 ml 750 ml 600 ml 1800 ml # Voids 3 1 # Bowel Movements 0 0 0 0 Objective Remarks GENERAL: morbidly obese, in no apparent distress. CARDIOVASCULAR: Regular rate and regular rhythm without murmurs, gallops, or rubs. RESPIRATORY: Clear to auscultation. Breath sounds equal bilaterally. No wheezes , rales, or rhonchi. GASTROINTESTINAL: Abdomen soft, non-tender, nondistended. Normal, active bowel sounds MUSCULOSKELETAL: Extremities without clubbing, cyanosis, or edema. NEURO: Alert & Oriented x4 to person, place, time, situation. Moves all ext x4 Procedures 11/25- S/P flexible cystoscopy with replacement of kyle catheter (Councill catheter) Medications and IVs Current Medications Insulin Human Regular (NovoLIN R INJ) 10 units ONCE ONCE SQ Last administered on 11/10/16 21:05; Start 11/10/16 at 16:00; Stop 11/10/16 at 16:01; Status DC Sodium Chloride (NS Flush) 2 ml UNSCH PRN IV FLUSH FLUSH AFTER USING IV ACCESS Last administered on 11/28/16 07:09; Start 11/10/16 at 21:45 Sodium Chloride (NS Flush) 2 ml BID IV FLUSH Last administered on 12/14/16 09: 23; Start 11/11/16 at 09:00 Naloxone HCl (Narcan Inj) 0.4 mg UNSCH PRN IV SEE LABEL COMMENTS; Start at 21:45 Albuterol Sulfate (Albuterol Neb) 2.5 mg Q6HR ALT NEB PRN NEB SHORTNESS OF BREATH; Start 11/11/16 at 02:00 Alprazolam (Xanax) 2 mg Q6HR PRN PO BELÉN Last administered on 12/14/16 05:45; Start 11/11/16 at 02:00 Ascorbic Acid (Vitamin C) 500 mg BID PO Last administered on 12/14/16 09:23; Start 11/11/16 at 09:00 Atorvastatin Calcium (Lipitor) 40 mg DAILY PO Last administered on 12/14/16 09: 22; Start 11/11/16 at 09:00 Baclofen (Lioresal) 20 mg Q6HR PRN PO MUSCLE SPASM Last administered on 05:45; Start 11/11/16 at 02:00 Bupropion HCl (Wellbutrin Xl 24 Hr) 150 mg DAILY PO ; Start 11/11/16 at 09:00; Status UNV Bupropion HCl (Wellbutrin Sr) 150 mg BID PO Last administered on 11/24/16 10: 23; Start 11/11/16 at 09:00; Stop 11/24/16 at 14:19; Status DC Chlorhexidine Gluconate (Peridex 0.12% Liq) 10 ml BID PRN SWISH-SPIT peridontitis; Start 11/11/16 at 02:00 Clotrimazole (Lotrimin 1% Cream) 1 applic DAILY PRN TOPICAL RASH IN SKIN FOLDS Last administered on 12/05/16 11:50; Start 11/11/16 at 02:00 Collagenase (Santyl Oint) 1 applic Q8HR TOPICAL Last administered on 11/23/16 12:12; Start 11/11/16 at 06:00; Stop 11/23/16 at 12:34; Status DC Escitalopram Oxalate (Lexapro) 20 mg HS PO Last administered on 11/13/16 21:18 ; Start 11/11/16 at 21:00; Stop 11/14/16 at 15:43; Status DC Furosemide (Lasix) 40 mg BID PO Last administered on 11/28/16 08:34; Start at 09:00; Status Hold Insulin Detemir (Levemir Inj) 55 units HS SQ Last administered on 11/19/16 21: 43; Start 11/11/16 at 21:00; Stop 11/19/16 at 22:31; Status DC Levothyroxine Sodium (Synthroid) 50 mcg DAILY@06 PO Last administered on 06:09; Start 11/11/16 at 06:00 Morphine Sulfate (Oramorph Sr) 30 mg Q8H PO Last administered on 12/13/16 17:42 ; Start 11/11/16 at 02:00 Morphine Sulfate (Oramorph Sr) 100 mg Q8H PO Last administered on 12/13/16 17: 42; Start 11/11/16 at 02:00 Potassium Chloride (KCl) 20 meq DAILY PO Last administered on 11/16/16 08:47; Start 11/11/16 at 09:00; Status Hold Promethazine HCl (Phenergan) 25 mg Q8HR PRN PO Nausea/Vomiting; Start 11/11/16 at 02:00 Famotidine (Pepcid) 20 mg DAILY PO Last administered on 12/14/16 09:23; Start 11/11/16 at 09:00 Rivaroxaban (Xarelto) 20 mg HS PO Last administered on 12/13/16 20:57; Start at 21:00 Simethicone (Mylicon Chew) 160 mg ACHS PRN CHEW GAS RETENTION Last administered on 12/13/16 20:57; Start 11/11/16 at 02:00 Trazodone HCl (Desyrel) 200 mg HS PO Last administered on 11/13/16 21:17; Start 11/11/16 at 21:00; Stop 11/14/16 at 10:19; Status DC Zolpidem Tartrate (Ambien) 10 mg HS PO Last administered on 12/09/16 22:44; Start 11/11/16 at 21:00; Stop 12/10/16 at 16:13; Status DC Tolterodine Tartrate (Detrol La) 2 mg HS PO Last administered on 12/13/16 20:57 ; Start 11/11/16 at 21:00 Oxycodone HCl (Roxicodone) 30 mg Q4H PRN PO PAIN Last administered on 09:01; Start 11/11/16 at 04:00; Stop 12/04/16 at 11:36; Status DC Hydromorphone HCl 0.5 mg 0.5 mg Q4H PRN IV PUSH breakthrough pain Last administered on 11/16/16 16:41; Start 11/11/16 at 02:15; Stop 11/16/16 at 22:41; Status DC Levofloxacin/ Dextrose (Levaquin 750 Mg Premix Inj) 150 ml @ 100 mls/hr Q24H IV Last administered on 11/14/16 03:44; Start 11/11/16 at 03:00; Stop 11/14/16 at 10:19; Status DC Bupropion HCl (Wellbutrin Sr 12 Hr) 150 mg DAILY PO ; Start 11/11/16 at 09:00; Status Cancel Bupropion HCl (Wellbutrin Sr) 150 mg DAILY PO Last administered on 11/11/16 12 :45; Start 11/11/16 at 09:00; Stop 11/12/16 at 07:22; Status DC Ondansetron HCl (Zofran Inj) 4 mg Q6HR PRN IV PUSH NAUSEA Last administered on 12/06/16 17:36; Start 11/11/16 at 03:15 Dextrose (D50w (Vial) Inj) 25 ml UNSCH PRN IV PUSH HYPOGLYCEMIA-SEE COMMENTS; Start 11/12/16 at 11:45 Glucagon (Glucagon Inj) 1 mg UNSCH PRN OTHER HYPOGLYCEMIA-SEE COMMENTS; Start 11/12/16 at 11:45 Insulin Aspart (NovoLOG SUPPLEMENTAL SCALE) 1 ACHS SLIDING SCALE SQ Last administered on 12/14/16 05:46; Start 11/12/16 at 16:00 Docusate Sodium (Colace) 100 mg BID PO Last administered on 12/09/16 22:45; Start 11/13/16 at 21:00; Stop 12/10/16 at 16:04; Status DC Magnesium Citrate (Citroma Liq) 600 ml Q24H PRN PO CONSTIPATION Last administered on 12/13/16 01:45; Start 11/13/16 at 14:45 Nystatin (Mycostatin Powder) 1 applic BID TOPICAL Last administered on 09:00; Start 11/13/16 at 21:00 Levofloxacin (Levaquin) 500 mg DAILY@11 PO Last administered on 11/21/16 10:53 ; Start 11/15/16 at 11:00; Stop 11/22/16 at 10:59; Status DC Trazodone HCl (Desyrel) 100 mg HS PO Last administered on 11/16/16 20:32; Start 11/14/16 at 21:00; Stop 11/16/16 at 22:40; Status DC Trazodone HCl (Desyrel) 200 mg HS PO Last administered on 12/13/16 01:13; Start 11/17/16 at 21:00 Hydromorphone HCl (Dilaudid Pf Inj) 1 mg Q4H PRN IV PUSH breakthrough pain Last administered on 11/29/16 10:31; Start 11/17/16 at 02:15; Stop 11/29/16 at 12:37; Status DC Trazodone HCl (Desyrel) 100 mg ONCE ONCE PO Last administered on 11/16/16 23: 54; Start 11/16/16 at 22:45; Stop 11/16/16 at 22:46; Status DC Acetaminophen (Tylenol) 650 mg Q4H PRN PO Headache, fever Last administered on 12/09/16 08:49; Start 11/18/16 at 17:30 Insulin Detemir (Levemir Inj) 30 units BID SQ Last administered on 11/20/16 09: 20; Start 11/20/16 at 09:00; Stop 11/20/16 at 11:16; Status DC Insulin Aspart (NovoLOG INJ) 6 units TIDAC SQ Last administered on 11/30/16 11 :10; Start 11/20/16 at 08:00; Stop 11/30/16 at 15:15; Status DC Insulin Detemir (Levemir Inj) 35 units BID SQ Last administered on 11/30/16 10 :40; Start 11/20/16 at 21:00; Stop 11/30/16 at 15:16; Status DC Collagenase (Santyl Oint) 1 applic DAILY TOPICAL Last administered on 12/14/16 09:25; Start 11/23/16 at 12:45 Povidone Iodine (Betadine 10% Oint) 1 pkt DAILY TOPICAL ; Start 11/23/16 at 12: 45; Stop 11/23/16 at 18:32; Status DC Povidone Iodine (Betadine 10% Oint) 1 applic DAILY TOPICAL Last administered on 12/14/16 09:00; Start 11/23/16 at 18:32 Insulin Human Regular (NovoLIN R INJ) 10 units ONCE ONCE IV PUSH Last administered on 11/23/16 22:28; Start 11/23/16 at 20:45; Stop 11/23/16 at 20:46 ; Status DC Bupropion HCl 200 mg 200 mg BID PO Last administered on 11/29/16 09:11; Start 11/24/16 at 21:00; Stop 12/10/16 at 16:11; Status DC Lactated Ringer's 1,000 ml @ 30 mls/hr Q24H PRN IV SEE LABEL COMMENTS; Start at 08:30; Stop 11/28/16 at 08:31; Status DC Sodium Chloride (NS 500 ml Inj) 500 ml @ 30 mls/hr [id number] PRN IV SEE LABEL COMMENTS; Start 11/25/16 at 08:30; Stop 11/28/16 at 08:31; Status DC Metoprolol Tartrate (Lopressor) 25 mg [employer] PRN PO SEE LABEL COMMENTS; Start 11/25/16 at 08:30; Stop 11/28/16 at 08:31; Status DC Povidone Iodine (Betadine 5% Antisepsis Kit) 1 applic [employer] PRN EACH NARE SEE LABEL COMMENTS; Start 11/25/16 at 08:30; Stop 11/28/16 at 08:31; Status DC Chlorhexidine Gluconate (Chlorhexidine 2% Cloth) 3 pack [employer] PRN TOPICAL SEE LABEL COMMENTS; Start 11/25/16 at 08:30; Stop 11/28/16 at 08:31; Status DC Insulin Human Regular (NovoLIN R INJ) See Protocol Table ... [employer] PRN SQ SEE PROTOCOL TABLE; Start 11/25/16 at 08:30; Stop 11/28/16 at 08:31; Status DC Oxybutynin Chloride (Ditropan) 5 mg Q12HR PO Last administered on 12/14/16 09: 23; Start 11/28/16 at 14:00 Hydromorphone HCl (Dilaudid Pf Inj) 1.5 mg Q4H PRN IV PUSH breakthrough pain Last administered on 12/04/16 11:21; Start 11/29/16 at 14:15; Stop 12/04/16 at 11:36; Status DC Miscellaneous Medication (ASP Crit: Doc allergy to Penicillin/ Cephalosp) 1 UNSCH X1 PRN .XX PHARMACY DOCUMENTATION; Start 11/29/16 at 15:30; Stop at 15:29; Status DC Miscellaneous Medication 1 1 UNSCH X1 PRN XX PHARMACY DOCUMENTATION; Start at 15:30; Stop 11/30/16 at 15:29; Status DC Meropenem/Sodium Chloride (Merrem Inj/NS Inj) 100 ml @ 200 mls/hr Q8H IV Last administered on 12/01/16 09:21; Start 11/29/16 at 16:00; Stop 12/01/16 at 14:34 ; Status DC Miscellaneous Medication 1 1 UNSCH X1 PRN XX PHARMACY DOCUMENTATION; Start at 15:30; Stop 11/30/16 at 15:29; Status DC Linezolid 300 ml @ 300 mls/hr Q12H IV Last administered on 12/01/16 04:12; Start 11/29/16 at 16:00; Stop 12/01/16 at 14:34; Status DC Fluconazole/ Sodium Chloride (Diflucan 400 Mg Premix Bag) 200 ml @ 100 mls/hr Q24H IV Last administered on 11/30/16 18:42; Start 11/29/16 at 18:00; Stop at 14:34; Status DC Insulin Aspart (NovoLOG INJ) 12 units TIDAC SQ Last administered on 11/30/16 18:43; Start 11/30/16 at 17:00; Status Hold Insulin Detemir (Levemir Inj) 40 units BID SQ Last administered on 12/01/16 09 :23; Start 11/30/16 at 21:00; Stop 12/01/16 at 17:30; Status DC Midodrine (Proamatine) 10 mg Q8HR PO Last administered on 12/14/16 05:45; Start 11/30/16 at 21:00 Miscellaneous Medication (ASP Crit: Doc ESBL, MDR A baumannii or P aer) 1 UNSCH X1 PRN .XX PHARMACY DOCUMENTATION; Start 12/01/16 at 14:45; Stop 12/02/16 at 14 :44; Status DC Miscellaneous Medication 1 1 UNSCH X1 PRN XX PHARMACY DOCUMENTATION; Start at 14:45; Stop 12/02/16 at 14:44; Status DC Ertapenem/Sodium Chloride (INVanz INJ/NS Inj) 100 ml @ 200 mls/hr Q24H IV Last administered on 12/12/16 17:14; Start 12/01/16 at 16:00; Stop 12/13/16 at 09 :00; Status DC Insulin Detemir 20 units 20 units BID SQ Last administered on 12/14/16 09:23; Start 12/01/16 at 21:00 Sodium Chloride (NS 1000 ml Inj) 1,000 ml @ 1,000 mls/hr Q1H IV Last administered on 12/02/16 01:00; Start 12/02/16 at 00:00; Stop 12/02/16 at 01:59 ; Status DC Albumin Human (Albumin 5% Inj) 25 gm ONCE ONCE IV Last administered on 00:30; Start 12/02/16 at 00:00; Stop 12/02/16 at 00:07; Status DC Hydromorphone HCl (Dilaudid Pf Inj) 1 mg Q4H PRN IV PUSH breakthrough pain; Start 12/04/16 at 11:45; Stop 12/04/16 at 11:45; Status DC Hydromorphone HCl (Dilaudid Pf Inj) 1 mg Q4H PRN IV PUSH breakthrough pain Last administered on 12/06/16 12:22; Start 12/04/16 at 14:15; Stop 12/06/16 at 12:32; Status DC Oxycodone HCl (Roxicodone) 30 mg Q4H PRN PO PAIN SCALE 8 TO 10 Last administered on 12/14/16 05:45; Start 12/06/16 at 12:30 Bupropion HCl (Wellbutrin Sr) 150 mg DAILY PO Last administered on 12/14/16 09: 22; Start 12/10/16 at 16:15 Escitalopram Oxalate (Lexapro) 20 mg HS PO Last administered on 12/13/16 20:57 ; Start 12/10/16 at 21:00 Senna/Docusate Sodium (Erin-Colace) 1 tab BID PO Last administered on 12/14/16 09:22; Start 12/10/16 at 21:00 Zolpidem Tartrate (Ambien) 5 mg HS PRN PO INSOMNIA Last administered on 01:46; Start 12/10/16 at 21:00 Multi-Ingredient Ointment (Eucerin Cream) 1 applic ONCE ONCE TOPICAL Last administered on 12/11/16 00:54; Start 12/11/16 at 00:00; Stop 12/11/16 at 00:01 ; Status DC Diphenhydramine HCl (Benadryl 2% Cream) 1 applic TID PRN TOPICAL ITCHING Last administered on 12/11/16 16:09; Start 12/11/16 at 08:15 Trazodone HCl (Desyrel) 200 mg HS PO ; Start 12/11/16 at 21:00 Gabapentin (Neurontin) 300 mg TID PO Last administered on 12/14/16 09:23; Start 12/12/16 at 18:00 Date of Insertion: Nov 25, 2016 A/P Assessment and Plan A/P Neurogenic Bladder Sepsis- source likely UTI- ESBL hypotension-resolved Better BP readings- continue Midodrine S/P Tx for UTI - S/p Levaquin and Ertapenem S/P replacement of Kyle catheter by Dr. Meraz- 11/25. On Oxybutynin 5mg bid. urine cath keeps leaking- urology was reconsulted-awaiting reevaluation. Blood cultures- negative x5 days Diabetes Mellitus: insulin requiring- - reinforced and encourage - Monitor Accu-Cheks, Continue sliding scale insulin.- - on Levemir 20 units BID. - continue to monitor and adjust Chronic pain. Home medications baclofen, morphine, oxycodone. -dc'ed IV Dilaudid and restarted his home Roxicodone 12/10- continue Oramorph. Insomnia: Home medications Ambien PRN & Trazadone 200 qHS Morbid obesity: Outpatient general surgery referral needed for possible surgical interventions Chronic pressure ulcers: Wound care team ff- however refused the wound care. Documented on admission. Patient turning himself rigorously Sleep apnea, CPAP at night Anxiety and depression: no homicidal or suicidal ideations Was evaluated by psych in the ER, Felipe acted lifted, did not meet inpatient psychiatric and admission criteria. -Patient has long history of being on psychiatric medication, currently doing well on Lexapro . Previously was on [place] and did not do well with mood on this. -He would like to discuss his options for medications with psychiatry. Also would like to discuss prior psychiatric history -Psychiatry follow-up appreciated. Hyperlipidemia: Continue Lipitor Hypothyroidism: Continue levothyroxine chronic pain - on chronic pain meds- as noted above. Substance use: tox screen on admission significant for opiates, benzos, cannabinoids Full code. On Xarelto -DNR status palliative care following. Discharge Planning difficult discharge. case management notes reviewed. no accepting facility yet. Juan Diego Zambrano MD December 14, 2016 10:24
--- NOTE | 2016-12-14 14:34 | MB ---
cc: ROCAEL LAGUNAS MD DATE OF CONSULTATION: 12/14/2016 REASON FOR CONSULTATION 1. History of neurogenic bladder. 2. Difficult Montelongo catheter placement. 3. Leaking around Montelongo catheter. 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 The patient was due for a catheter change and had his catheter changed Dr. Meraz on November 25, however, for the last week or so has been leaking increasingly around the catheter. However, today the patient states it has not leaked all day. He takes oxybutynin b.i.d. His catheter usually is always changed by urologist every 4 weeks due to his morbid obesity as well as numerous false passages through his urethra. Currently he denies any fevers, chills, nausea, vomiting, abdominal pain at this time. Denies history of kidney stones but has had urinary tract infections in the past. PAST MEDICAL HISTORY 1. Neurogenic bladder. 2. Coronary artery disease. 3. Hypercholesterolemia. 4. Hypertension. 5. History of DVT. 6. Sleep apnea. 7. Gastroesophageal reflux disease. 8. Hypothyroidism. 9. Diabetes. PAST SURGICAL HISTORY 1. Multiple spinal surgeries. 2. Tonsillectomy. FAMILY HISTORY Negative for urolithiasis, negative for genitourinary malignancies. SOCIAL HISTORY He lives at a penitentiary. He does drink caffeine. Denies smoking, alcohol or illicit drugs. ALLERGIES ADHESIVES, CEFEPIME, CLINDAMYCIN, PENICILLIN. MEDICATION 1. Trazodone 200 mg p.o. q.h.s. 2. Lexapro 20 mg p.o. q.h.s. 3. Ambien 5 mg p.r.n. q.h.s. insomnia. 4. Wellbutrin 150 mg p.o. daily. 5. Insulin 20 units b.i.d. subcu. 6. ___ 5 mg p.o. b.i.d. 7. Detrol 2 mg q.h.s. REVIEW OF SYSTEMS See HPI, all other systems reviewed, otherwise negative. PHYSICAL EXAMINATION CONSTITUTIONAL: He is morbidly obese. VITAL SIGNS: Temperature 97.8, pulse 88, respiratory rate 19, BP 101/55, sating 95% on room air. GENERAL: He is alert and oriented x3. No apparent distress. HEAD: Normocephalic, atraumatic. NECK: Neck is supple. Trachea is midline. LUNGS: Nonlabored respirations. No wheezes, rales or rhonchi. HEART: Regular rate and rhythm. No murmurs, gallops, rubs. ABDOMEN: Morbidly obese but soft, nontender. GENITOURINARY: His phallus is circumcised. Testes descended bilaterally, normal size and consistency. Catheter currently draining clear yellow urine. RECTAL: Exam not indicated at this time. EXTREMITIES: Morbidly obese. SKIN: [place] and moist. PSYCHE: Normal affect. LABORATORY DATA None recently. ASSESSMENT AND PLAN The patient is a 25-year-old paraplegic male with neurogenic bladder, managed with indwelling catheter, changed every 4 weeks with urine leaking around the catheter, likely related to bladder spasm. PLAN I discussed with the patient today about changing his catheter due to the leakage but the patient declined today as his Catheter has stopped leaking and would not like it changed at this time. I discussed with him that his catheter is likely in the correct position it is just that his bladder is contracted and spasming around the catheter. I recommended that we place more fluid in the balloon within the Montelongo catheter which could occlude his urethra and prevent any urine from leaking but he declined as well. I will increase his oxybutynin to three times a day as well as continue the Detrol. As for now since his catheter is not leaking and the patient does not wish to have it changed at this time, no further urological intervention is required at this time. He can have his catheter changed as scheduled later this month. MD CAROLIN Terry/MARIIA /1:27 PM /1:57 PM
[2016-12-14] MEDS: traZODone HCL 100 MG TAB PO SCH (21:00)
[2016-12-15] MEDS: DOCUSATE SODIUM 50 MG/SENNA 8.6 MG TAB PO SCH ×3 (00:37→22:08)
[2016-12-15] MEDS: MIDODRINE 5 MG TAB PO SCH ×4 (00:38→22:08)
[2016-12-15] MEDS: RIVAROXABAN 20 MG TAB PO SCH ×2 (00:38→22:08)
[2016-12-15] MEDS: ESCITALOPRAM OXALATE 20 MG TAB PO SCH ×2 (00:38→22:09)
[2016-12-15] MEDS: OXYBUTYNIN CHLORIDE 5 MG TAB PO SCH ×4 (00:38→22:08)
[2016-12-15] MEDS: traZODone HCL 100 MG TAB PO SCH ×3 (00:38→22:08)
[2016-12-15] MEDS: TOLTERODINE TARTRATE 4 MG CAP LA PO SCH ×2 (00:38→22:08)
[2016-12-15] MEDS: ASCORBIC ACID 500 MG TAB PO SCH ×3 (00:38→22:09)
[2016-12-15] MEDS: INSULIN DETEMIR 100 UNITS/ML VIAL SQ SCH ×3 (00:44→20:13)
[2016-12-15] MEDS: NYSTATIN 100,000 U/GM PWD 15 GM BTL TOPICAL SCH ×3 (00:45→22:09)
[2016-12-15] MEDS: SODIUM CHLORIDE 0.9% FLUSH 10 ML FLUSH IV FLUSH SCH ×3 (00:45→20:13)
[2016-12-15] MEDS: BACLOFEN 20 MG TAB PO PRN ×3 (01:35→20:13)
[2016-12-15] MEDS: ALPRAZolam 1 MG TAB PO PRN ×3 (01:35→22:06)
[2016-12-15] MEDS: MORPHINE SULFATE 30 MG CONTROLLED RELEASE TAB PO SCH ×3 (02:00→17:44)
[2016-12-15] MEDS: MORPHINE SULFATE 100 MG CONTROLLED RELEASE TAB PO SCH ×3 (02:00→17:44)
[2016-12-15 04:00] VITALS: BP 105/53; PULSE 84; RESP 24; TEMP 97.7; O2SAT 94
[2016-12-15] MEDS: LEVOTHYROXINE SODIUM 50 MCG TAB PO SCH (07:08)
[2016-12-15] MEDS: INSULIN ASPART SUPPLEMENTAL SCALE SQ SCH ×4 (07:12→20:18)
[2016-12-15 08:00] VITALS: BP 102/58; PULSE 89; RESP 21; TEMP 96.4; O2SAT 94
[2016-12-15] MEDS ORDERED: BALANCED SALT SOLN OPHT IRRIG 15 ML BTL ONE (08:04)
--- NOTE | 2016-12-15 08:58 | HHI.PR ---
Subjective Remarks resting comfortably with no distress. no fever. Objective Vitals Vital Signs Date Time Temp Pulse Resp B/P Pulse Ox O2 Delivery O2 Flow Rate FiO2 12/15/16 08:00 96.4 89 21 102/58 94 12/15/16 04:00 97.7 84 24 105/53 94 12/14/16 21:26 93 21 12/14/16 20:00 98.5 90 22 98/52 93 12/14/16 16:00 98.9 97 20 123/57 96 12/14/16 12:00 97.8 88 19 101/55 94 12/14/16 10:50 94 21 I/O 12/14/16 12/14/16 12/14/16 12/15/16 12/15/16 12/15/16 07:00 15:00 23:00 07:00 15:00 23:00 Intake Total 360 ml 120 ml 480 ml 480 ml Output Total 1800 ml 1800 ml 2250 ml 3000 ml Balance -1440 ml -1680 ml -1770 ml -2520 ml Intake Oral 360 ml 120 ml 480 ml 480 ml IV Total 0 ml Output Urine Total 1800 ml 1800 ml 2250 ml 3000 ml # Voids 1 # Bowel Movements 0 0 0 0 Objective Remarks GENERAL: morbidly obese, in no apparent distress. CARDIOVASCULAR: Regular rate and regular rhythm without murmurs, gallops, or rubs. RESPIRATORY: Clear to auscultation. Breath sounds equal bilaterally. No wheezes , rales, or rhonchi. GASTROINTESTINAL: Abdomen soft, non-tender, nondistended. Normal, active bowel sounds MUSCULOSKELETAL: Extremities without clubbing, cyanosis, or edema. NEURO: Alert & Oriented x4 to person, place, time, situation. Moves all ext x4 Procedures 11/25- S/P flexible cystoscopy with replacement of kyle catheter (Councill catheter) Medications and IVs Current Medications Insulin Human Regular (NovoLIN R INJ) 10 units ONCE ONCE SQ Last administered on 11/10/16 21:05; Start 11/10/16 at 16:00; Stop 11/10/16 at 16:01; Status DC Sodium Chloride (NS Flush) 2 ml UNSCH PRN IV FLUSH FLUSH AFTER USING IV ACCESS Last administered on 11/28/16 07:09; Start 11/10/16 at 21:45 Sodium Chloride (NS Flush) 2 ml BID IV FLUSH Last administered on 12/15/16 00: 45; Start 11/11/16 at 09:00 Naloxone HCl (Narcan Inj) 0.4 mg UNSCH PRN IV SEE LABEL COMMENTS; Start at 21:45 Albuterol Sulfate (Albuterol Neb) 2.5 mg Q6HR ALT NEB PRN NEB SHORTNESS OF BREATH; Start 11/11/16 at 02:00 Alprazolam (Xanax) 2 mg Q6HR PRN PO BELÉN Last administered on 12/15/16 01:35; Start 11/11/16 at 02:00 Ascorbic Acid (Vitamin C) 500 mg BID PO Last administered on 12/15/16 00:38; Start 11/11/16 at 09:00 Atorvastatin Calcium (Lipitor) 40 mg DAILY PO Last administered on 12/14/16 09: 22; Start 11/11/16 at 09:00 Baclofen (Lioresal) 20 mg Q6HR PRN PO MUSCLE SPASM Last administered on 01:35; Start 11/11/16 at 02:00 Bupropion HCl (Wellbutrin Xl 24 Hr) 150 mg DAILY PO ; Start 11/11/16 at 09:00; Status UNV Bupropion HCl (Wellbutrin Sr) 150 mg BID PO Last administered on 11/24/16 10: 23; Start 11/11/16 at 09:00; Stop 11/24/16 at 14:19; Status DC Chlorhexidine Gluconate (Peridex 0.12% Liq) 10 ml BID PRN SWISH-SPIT peridontitis; Start 11/11/16 at 02:00 Clotrimazole (Lotrimin 1% Cream) 1 applic DAILY PRN TOPICAL RASH IN SKIN FOLDS Last administered on 12/05/16 11:50; Start 11/11/16 at 02:00 Collagenase (Santyl Oint) 1 applic Q8HR TOPICAL Last administered on 11/23/16 12:12; Start 11/11/16 at 06:00; Stop 11/23/16 at 12:34; Status DC Escitalopram Oxalate (Lexapro) 20 mg HS PO Last administered on 11/13/16 21:18 ; Start 11/11/16 at 21:00; Stop 11/14/16 at 15:43; Status DC Furosemide (Lasix) 40 mg BID PO Last administered on 11/28/16 08:34; Start at 09:00; Status Hold Insulin Detemir (Levemir Inj) 55 units HS SQ Last administered on 11/19/16 21: 43; Start 11/11/16 at 21:00; Stop 11/19/16 at 22:31; Status DC Levothyroxine Sodium (Synthroid) 50 mcg DAILY@06 PO Last administered on 07:08; Start 11/11/16 at 06:00 Morphine Sulfate (Oramorph Sr) 30 mg Q8H PO Last administered on 12/13/16 17:42 ; Start 11/11/16 at 02:00 Morphine Sulfate (Oramorph Sr) 100 mg Q8H PO Last administered on 12/13/16 17: 42; Start 11/11/16 at 02:00 Potassium Chloride (KCl) 20 meq DAILY PO Last administered on 11/16/16 08:47; Start 11/11/16 at 09:00; Status Hold Promethazine HCl (Phenergan) 25 mg Q8HR PRN PO Nausea/Vomiting; Start 11/11/16 at 02:00 Famotidine (Pepcid) 20 mg DAILY PO Last administered on 12/14/16 09:23; Start 11/11/16 at 09:00 Rivaroxaban (Xarelto) 20 mg HS PO Last administered on 12/15/16 00:38; Start at 21:00 Simethicone (Mylicon Chew) 160 mg ACHS PRN CHEW GAS RETENTION Last administered on 12/13/16 20:57; Start 11/11/16 at 02:00 Trazodone HCl (Desyrel) 200 mg HS PO Last administered on 11/13/16 21:17; Start 11/11/16 at 21:00; Stop 11/14/16 at 10:19; Status DC Zolpidem Tartrate (Ambien) 10 mg HS PO Last administered on 12/09/16 22:44; Start 11/11/16 at 21:00; Stop 12/10/16 at 16:13; Status DC Tolterodine Tartrate (Detrol La) 2 mg HS PO Last administered on 12/13/16 20:57 ; Start 11/11/16 at 21:00; Stop 12/14/16 at 13:31; Status DC Oxycodone HCl (Roxicodone) 30 mg Q4H PRN PO PAIN Last administered on 09:01; Start 11/11/16 at 04:00; Stop 12/04/16 at 11:36; Status DC Hydromorphone HCl 0.5 mg 0.5 mg Q4H PRN IV PUSH breakthrough pain Last administered on 11/16/16 16:41; Start 11/11/16 at 02:15; Stop 11/16/16 at 22:41; Status DC Levofloxacin/ Dextrose (Levaquin 750 Mg Premix Inj) 150 ml @ 100 mls/hr Q24H IV Last administered on 11/14/16 03:44; Start 11/11/16 at 03:00; Stop 11/14/16 at 10:19; Status DC Bupropion HCl (Wellbutrin Sr 12 Hr) 150 mg DAILY PO ; Start 11/11/16 at 09:00; Status Cancel Bupropion HCl (Wellbutrin Sr) 150 mg DAILY PO Last administered on 11/11/16 12 :45; Start 11/11/16 at 09:00; Stop 11/12/16 at 07:22; Status DC Ondansetron HCl (Zofran Inj) 4 mg Q6HR PRN IV PUSH NAUSEA Last administered on 12/06/16 17:36; Start 11/11/16 at 03:15 Dextrose (D50w (Vial) Inj) 25 ml UNSCH PRN IV PUSH HYPOGLYCEMIA-SEE COMMENTS; Start 11/12/16 at 11:45 Glucagon (Glucagon Inj) 1 mg UNSCH PRN OTHER HYPOGLYCEMIA-SEE COMMENTS; Start 11/12/16 at 11:45 Insulin Aspart (NovoLOG SUPPLEMENTAL SCALE) 1 ACHS SLIDING SCALE SQ Last administered on 12/15/16 07:12; Start 11/12/16 at 16:00 Docusate Sodium (Colace) 100 mg BID PO Last administered on 12/09/16 22:45; Start 11/13/16 at 21:00; Stop 12/10/16 at 16:04; Status DC Magnesium Citrate (Citroma Liq) 600 ml Q24H PRN PO CONSTIPATION Last administered on 12/13/16 01:45; Start 11/13/16 at 14:45 Nystatin (Mycostatin Powder) 1 applic BID TOPICAL Last administered on 00:45; Start 11/13/16 at 21:00 Levofloxacin (Levaquin) 500 mg DAILY@11 PO Last administered on 11/21/16 10:53 ; Start 11/15/16 at 11:00; Stop 11/22/16 at 10:59; Status DC Trazodone HCl (Desyrel) 100 mg HS PO Last administered on 11/16/16 20:32; Start 11/14/16 at 21:00; Stop 11/16/16 at 22:40; Status DC Trazodone HCl (Desyrel) 200 mg HS PO Last administered on 12/15/16 00:38; Start 11/17/16 at 21:00 Hydromorphone HCl (Dilaudid Pf Inj) 1 mg Q4H PRN IV PUSH breakthrough pain Last administered on 11/29/16 10:31; Start 11/17/16 at 02:15; Stop 11/29/16 at 12:37; Status DC Trazodone HCl (Desyrel) 100 mg ONCE ONCE PO Last administered on 11/16/16 23: 54; Start 11/16/16 at 22:45; Stop 11/16/16 at 22:46; Status DC Acetaminophen (Tylenol) 650 mg Q4H PRN PO Headache, fever Last administered on 12/09/16 08:49; Start 11/18/16 at 17:30 Insulin Detemir (Levemir Inj) 30 units BID SQ Last administered on 11/20/16 09: 20; Start 11/20/16 at 09:00; Stop 11/20/16 at 11:16; Status DC Insulin Aspart (NovoLOG INJ) 6 units TIDAC SQ Last administered on 11/30/16 11 :10; Start 11/20/16 at 08:00; Stop 11/30/16 at 15:15; Status DC Insulin Detemir (Levemir Inj) 35 units BID SQ Last administered on 11/30/16 10 :40; Start 11/20/16 at 21:00; Stop 11/30/16 at 15:16; Status DC Collagenase (Santyl Oint) 1 applic DAILY TOPICAL Last administered on 12/14/16 09:25; Start 11/23/16 at 12:45 Povidone Iodine (Betadine 10% Oint) 1 pkt DAILY TOPICAL ; Start 11/23/16 at 12: 45; Stop 11/23/16 at 18:32; Status DC Povidone Iodine (Betadine 10% Oint) 1 applic DAILY TOPICAL Last administered on 12/14/16 09:00; Start 11/23/16 at 18:32 Insulin Human Regular (NovoLIN R INJ) 10 units ONCE ONCE IV PUSH Last administered on 11/23/16 22:28; Start 11/23/16 at 20:45; Stop 11/23/16 at 20:46 ; Status DC Bupropion HCl 200 mg 200 mg BID PO Last administered on 11/29/16 09:11; Start 11/24/16 at 21:00; Stop 12/10/16 at 16:11; Status DC Lactated Ringer's 1,000 ml @ 30 mls/hr Q24H PRN IV SEE LABEL COMMENTS; Start at 08:30; Stop 11/28/16 at 08:31; Status DC Sodium Chloride (NS 500 ml Inj) 500 ml @ 30 mls/hr [id number] PRN IV SEE LABEL COMMENTS; Start 11/25/16 at 08:30; Stop 11/28/16 at 08:31; Status DC Metoprolol Tartrate (Lopressor) 25 mg RACKING TECHNICIAN PRN PO SEE LABEL COMMENTS; Start 11/25/16 at 08:30; Stop 11/28/16 at 08:31; Status DC Povidone Iodine (Betadine 5% Antisepsis Kit) 1 applic RACKING TECHNICIAN PRN EACH NARE SEE LABEL COMMENTS; Start 11/25/16 at 08:30; Stop 11/28/16 at 08:31; Status DC Chlorhexidine Gluconate (Chlorhexidine 2% Cloth) 3 pack RACKING TECHNICIAN PRN TOPICAL SEE LABEL COMMENTS; Start 11/25/16 at 08:30; Stop 11/28/16 at 08:31; Status DC Insulin Human Regular (NovoLIN R INJ) See Protocol Table ... RACKING TECHNICIAN PRN SQ SEE PROTOCOL TABLE; Start 11/25/16 at 08:30; Stop 11/28/16 at 08:31; Status DC Oxybutynin Chloride (Ditropan) 5 mg Q12HR PO Last administered on 12/14/16 09: 23; Start 11/28/16 at 14:00; Stop 12/14/16 at 13:31; Status DC Hydromorphone HCl (Dilaudid Pf Inj) 1.5 mg Q4H PRN IV PUSH breakthrough pain Last administered on 12/04/16 11:21; Start 11/29/16 at 14:15; Stop 12/04/16 at 11:36; Status DC Miscellaneous Medication (ASP Crit: Doc allergy to Penicillin/ Cephalosp) 1 UNSCH X1 PRN .XX PHARMACY DOCUMENTATION; Start 11/29/16 at 15:30; Stop at 15:29; Status DC Miscellaneous Medication 1 1 UNSCH X1 PRN XX PHARMACY DOCUMENTATION; Start at 15:30; Stop 11/30/16 at 15:29; Status DC Meropenem/Sodium Chloride (Merrem Inj/NS Inj) 100 ml @ 200 mls/hr Q8H IV Last administered on 12/01/16 09:21; Start 11/29/16 at 16:00; Stop 12/01/16 at 14:34 ; Status DC Miscellaneous Medication 1 1 UNSCH X1 PRN XX PHARMACY DOCUMENTATION; Start at 15:30; Stop 11/30/16 at 15:29; Status DC Linezolid 300 ml @ 300 mls/hr Q12H IV Last administered on 12/01/16 04:12; Start 11/29/16 at 16:00; Stop 12/01/16 at 14:34; Status DC Fluconazole/ Sodium Chloride (Diflucan 400 Mg Premix Bag) 200 ml @ 100 mls/hr Q24H IV Last administered on 11/30/16 18:42; Start 11/29/16 at 18:00; Stop at 14:34; Status DC Insulin Aspart (NovoLOG INJ) 12 units TIDAC SQ Last administered on 11/30/16 18:43; Start 11/30/16 at 17:00; Status Hold Insulin Detemir (Levemir Inj) 40 units BID SQ Last administered on 12/01/16 09 :23; Start 11/30/16 at 21:00; Stop 12/01/16 at 17:30; Status DC Midodrine (Proamatine) 10 mg Q8HR PO Last administered on 12/15/16 07:08; Start 11/30/16 at 21:00 Miscellaneous Medication (ASP Crit: Doc ESBL, MDR A baumannii or P aer) 1 UNSCH X1 PRN .XX PHARMACY DOCUMENTATION; Start 12/01/16 at 14:45; Stop 12/02/16 at 14 :44; Status DC Miscellaneous Medication 1 1 UNSCH X1 PRN XX PHARMACY DOCUMENTATION; Start at 14:45; Stop 12/02/16 at 14:44; Status DC Ertapenem/Sodium Chloride (INVanz INJ/NS Inj) 100 ml @ 200 mls/hr Q24H IV Last administered on 12/12/16 17:14; Start 12/01/16 at 16:00; Stop 12/13/16 at 09 :00; Status DC Insulin Detemir 20 units 20 units BID SQ Last administered on 12/15/16 00:44; Start 12/01/16 at 21:00 Sodium Chloride (NS 1000 ml Inj) 1,000 ml @ 1,000 mls/hr Q1H IV Last administered on 12/02/16 01:00; Start 12/02/16 at 00:00; Stop 12/02/16 at 01:59 ; Status DC Albumin Human (Albumin 5% Inj) 25 gm ONCE ONCE IV Last administered on 00:30; Start 12/02/16 at 00:00; Stop 12/02/16 at 00:07; Status DC Hydromorphone HCl (Dilaudid Pf Inj) 1 mg Q4H PRN IV PUSH breakthrough pain; Start 12/04/16 at 11:45; Stop 12/04/16 at 11:45; Status DC Hydromorphone HCl (Dilaudid Pf Inj) 1 mg Q4H PRN IV PUSH breakthrough pain Last administered on 12/06/16 12:22; Start 12/04/16 at 14:15; Stop 12/06/16 at 12:32; Status DC Oxycodone HCl (Roxicodone) 30 mg Q4H PRN PO PAIN SCALE 8 TO 10 Last administered on 12/15/16 01:35; Start 12/06/16 at 12:30 Bupropion HCl (Wellbutrin Sr) 150 mg DAILY PO Last administered on 12/14/16 09: 22; Start 12/10/16 at 16:15 Escitalopram Oxalate (Lexapro) 20 mg HS PO Last administered on 12/15/16 00:38 ; Start 12/10/16 at 21:00 Senna/Docusate Sodium (Erin-Colace) 1 tab BID PO Last administered on 12/15/16 00:37; Start 12/10/16 at 21:00 Zolpidem Tartrate (Ambien) 5 mg HS PRN PO INSOMNIA Last administered on 01:46; Start 12/10/16 at 21:00 Multi-Ingredient Ointment (Eucerin Cream) 1 applic ONCE ONCE TOPICAL Last administered on 12/11/16 00:54; Start 12/11/16 at 00:00; Stop 12/11/16 at 00:01 ; Status DC Diphenhydramine HCl (Benadryl 2% Cream) 1 applic TID PRN TOPICAL ITCHING Last administered on 12/11/16 16:09; Start 12/11/16 at 08:15 Trazodone HCl (Desyrel) 200 mg HS PO ; Start 12/11/16 at 21:00 Gabapentin (Neurontin) 300 mg TID PO Last administered on 12/14/16 13:12; Start 12/12/16 at 18:00 Oxybutynin Chloride (Ditropan) 5 mg Q8HR PO Last administered on 12/15/16 07:08 ; Start 12/14/16 at 14:00 Tolterodine Tartrate (Detrol La) 4 mg HS PO Last administered on 12/15/16 00:38 ; Start 12/14/16 at 21:00 Balanced Salt Solution (Bss Opth Soln) 15 applic STK-MED ONCE .ROUTE ; Start 12/15/16 at 08:04; Stop 12/15/16 at 08:05; Status DC Date of Insertion: Nov 25, 2016 A/P Assessment and Plan A/P Neurogenic Bladder Sepsis- source likely UTI- ESBL hypotension-resolved Better BP readings- continue Midodrine S/P Tx for UTI - S/p Levaquin and Ertapenem S/P replacement of Kyle catheter by Dr. Meraz- 11/25. On Oxybutynin 5mg bid. urine cath leakage- urology was reconsulted; patient declined catheter exchange- no urological intervention at this time per urology- urine cath needs to be changed later this month. Blood cultures- negative x5 days Diabetes Mellitus: insulin requiring- - reinforced and encourage - Monitor Accu-Cheks, Continue sliding scale insulin.- - on Levemir 20 units BID. - continue to monitor and adjust Chronic pain. Home medications baclofen, morphine, oxycodone. continue Oramorph. Insomnia: Home medications Ambien PRN & Trazadone 200 qHS Morbid obesity: Outpatient general surgery referral needed for possible surgical interventions Chronic pressure ulcers: Wound care team ff- however refused the wound care. Documented on admission. Patient turning himself rigorously Sleep apnea, CPAP at night Anxiety and depression: no homicidal or suicidal ideations Was evaluated by psych in the ER, Felipe acted lifted, did not meet inpatient psychiatric and admission criteria. -Patient has long history of being on psychiatric medication, currently doing well on Lexapro . Previously was on [place] and did not do well with mood on this. -He would like to discuss his options for medications with psychiatry. Also would like to discuss prior psychiatric history -Psychiatry follow-up appreciated. Hyperlipidemia: Continue Lipitor Hypothyroidism: Continue levothyroxine chronic pain - on chronic pain meds- as noted above. Substance use: tox screen on admission significant for opiates, benzos, cannabinoids Full code. On Xarelto -DNR status palliative care following. Discharge Planning difficult discharge. case management notes reviewed. no accepting facility yet. Juan Diego Zambrano MD December 15, 2016 08:58
[2016-12-15] MEDS: buPROPion HCL 150 MG SUSTAINED RELEASE TAB PO SCH (11:19)
[2016-12-15] MEDS: FAMOTIDINE 20 MG TAB PO SCH (11:19)
[2016-12-15] MEDS: ATORVASTATIN 40 MG TAB PO SCH (11:19)
[2016-12-15] MEDS: GABAPENTIN 300 MG CAP PO SCH ×3 (11:19→17:43)
[2016-12-15] MEDS: POVIDONE IODINE 10% OINT 30 GM TUBE TOPICAL SCH (11:22)
[2016-12-15 12:00] VITALS: BP 105/58; PULSE 85; RESP 19; TEMP 97.9; O2SAT 95
[2016-12-15] MEDS: COLLAGENASE OINT 30 GM TUBE TOPICAL SCH (12:18)
[2016-12-15 14:20] VITALS: O2SAT 93
[2016-12-15 16:00] VITALS: BP 102/50; PULSE 88; RESP 22; TEMP 97.7; O2SAT 94
[2016-12-15 20:00] VITALS: BP 126/60; PULSE 87; RESP 20; TEMP 98.1; O2SAT 95
[2016-12-16] VITALS (8 sets, daily range): BP systolic 85–129; BP diastolic 51–62; PULSE 69–86; RESP 17–22; TEMP 95.7–97.3; O2SAT 93–99
[2016-12-16] MEDS: MORPHINE SULFATE 100 MG CONTROLLED RELEASE TAB PO SCH ×3 (02:00→18:11)
[2016-12-16] MEDS: MORPHINE SULFATE 30 MG CONTROLLED RELEASE TAB PO SCH ×3 (02:00→18:10)
[2016-12-16] MEDS: MIDODRINE 5 MG TAB PO SCH ×3 (05:00→20:23)
[2016-12-16] MEDS: LEVOTHYROXINE SODIUM 50 MCG TAB PO SCH (05:00)
[2016-12-16] MEDS: OXYBUTYNIN CHLORIDE 5 MG TAB PO SCH ×3 (05:00→20:26)
[2016-12-16] MEDS: INSULIN ASPART SUPPLEMENTAL SCALE SQ SCH ×4 (06:49→21:00)
--- NOTE | 2016-12-16 09:41 | HHI.PR ---
Subjective Remarks in no distress. no new complaints. Objective Vitals Vital Signs Date Time Temp Pulse Resp B/P Pulse Ox O2 Delivery O2 Flow Rate FiO2 12/16/16 08:00 97.3 80 18 105/51 93 12/16/16 04:00 96.7 82 18 109/55 94 12/16/16 00:48 98 40 12/15/16 20:00 98.1 87 20 126/60 95 12/15/16 18:17 Full Face Mask 40.0 12/15/16 16:00 97.7 88 22 102/50 94 12/15/16 14:20 93 12/15/16 12:00 97.9 85 19 105/58 95 I/O 12/15/16 12/15/16 12/15/16 12/16/16 12/16/16 12/16/16 07:00 15:00 23:00 07:00 15:00 23:00 Intake Total 480 ml 240 ml 600 ml 720 ml Output Total 3000 ml 1650 ml 3150 ml 1800 ml Balance -2520 ml -1410 ml -2550 ml -1080 ml Intake Oral 480 ml 240 ml 600 ml 720 ml Output Urine Total 3000 ml 1650 ml 3150 ml 1800 ml # Bowel Movements 0 0 0 0 Objective Remarks GENERAL: morbidly obese, in no apparent distress. CARDIOVASCULAR: Regular rate and regular rhythm without murmurs, gallops, or rubs. RESPIRATORY: Clear to auscultation. Breath sounds equal bilaterally. No wheezes , rales, or rhonchi. GASTROINTESTINAL: Abdomen soft, non-tender, nondistended. Normal, active bowel sounds MUSCULOSKELETAL: Extremities without clubbing, cyanosis, or edema. NEURO: Alert & Oriented x4 to person, place, time, situation. Moves all ext x4 Procedures 11/25- S/P flexible cystoscopy with replacement of kyle catheter (Councill catheter) Medications and IVs Current Medications Insulin Human Regular (NovoLIN R INJ) 10 units ONCE ONCE SQ Last administered on 11/10/16 21:05; Start 11/10/16 at 16:00; Stop 11/10/16 at 16:01; Status DC Sodium Chloride (NS Flush) 2 ml UNSCH PRN IV FLUSH FLUSH AFTER USING IV ACCESS Last administered on 11/28/16 07:09; Start 11/10/16 at 21:45 Sodium Chloride (NS Flush) 2 ml BID IV FLUSH Last administered on 12/15/16 20: 13; Start 11/11/16 at 09:00 Naloxone HCl (Narcan Inj) 0.4 mg UNSCH PRN IV SEE LABEL COMMENTS; Start at 21:45 Albuterol Sulfate (Albuterol Neb) 2.5 mg Q6HR ALT NEB PRN NEB SHORTNESS OF BREATH; Start 11/11/16 at 02:00 Alprazolam (Xanax) 2 mg Q6HR PRN PO BELÉN Last administered on 12/15/16 22:06; Start 11/11/16 at 02:00 Ascorbic Acid (Vitamin C) 500 mg BID PO Last administered on 12/15/16 22:09; Start 11/11/16 at 09:00 Atorvastatin Calcium (Lipitor) 40 mg DAILY PO Last administered on 12/15/16 11: 19; Start 11/11/16 at 09:00 Baclofen (Lioresal) 20 mg Q6HR PRN PO MUSCLE SPASM Last administered on 20:13; Start 11/11/16 at 02:00 Bupropion HCl (Wellbutrin Xl 24 Hr) 150 mg DAILY PO ; Start 11/11/16 at 09:00; Status UNV Bupropion HCl (Wellbutrin Sr) 150 mg BID PO Last administered on 11/24/16 10: 23; Start 11/11/16 at 09:00; Stop 11/24/16 at 14:19; Status DC Chlorhexidine Gluconate (Peridex 0.12% Liq) 10 ml BID PRN SWISH-SPIT peridontitis; Start 11/11/16 at 02:00 Clotrimazole (Lotrimin 1% Cream) 1 applic DAILY PRN TOPICAL RASH IN SKIN FOLDS Last administered on 12/05/16 11:50; Start 11/11/16 at 02:00 Collagenase (Santyl Oint) 1 applic Q8HR TOPICAL Last administered on 11/23/16 12:12; Start 11/11/16 at 06:00; Stop 11/23/16 at 12:34; Status DC Escitalopram Oxalate (Lexapro) 20 mg HS PO Last administered on 11/13/16 21:18 ; Start 11/11/16 at 21:00; Stop 11/14/16 at 15:43; Status DC Furosemide (Lasix) 40 mg BID PO Last administered on 11/28/16 08:34; Start at 09:00; Status Hold Insulin Detemir (Levemir Inj) 55 units HS SQ Last administered on 11/19/16 21: 43; Start 11/11/16 at 21:00; Stop 11/19/16 at 22:31; Status DC Levothyroxine Sodium (Synthroid) 50 mcg DAILY@06 PO Last administered on 05:00; Start 11/11/16 at 06:00 Morphine Sulfate (Oramorph Sr) 30 mg Q8H PO Last administered on 12/15/16 17:44 ; Start 11/11/16 at 02:00 Morphine Sulfate (Oramorph Sr) 100 mg Q8H PO Last administered on 12/15/16 17: 44; Start 11/11/16 at 02:00 Potassium Chloride (KCl) 20 meq DAILY PO Last administered on 11/16/16 08:47; Start 11/11/16 at 09:00; Status Hold Promethazine HCl (Phenergan) 25 mg Q8HR PRN PO Nausea/Vomiting; Start 11/11/16 at 02:00 Famotidine (Pepcid) 20 mg DAILY PO Last administered on 12/15/16 11:19; Start 11/11/16 at 09:00 Rivaroxaban (Xarelto) 20 mg HS PO Last administered on 12/15/16 22:08; Start at 21:00 Simethicone (Mylicon Chew) 160 mg ACHS PRN CHEW GAS RETENTION Last administered on 12/13/16 20:57; Start 11/11/16 at 02:00 Trazodone HCl (Desyrel) 200 mg HS PO Last administered on 11/13/16 21:17; Start 11/11/16 at 21:00; Stop 11/14/16 at 10:19; Status DC Zolpidem Tartrate (Ambien) 10 mg HS PO Last administered on 12/09/16 22:44; Start 11/11/16 at 21:00; Stop 12/10/16 at 16:13; Status DC Tolterodine Tartrate (Detrol La) 2 mg HS PO Last administered on 12/13/16 20:57 ; Start 11/11/16 at 21:00; Stop 12/14/16 at 13:31; Status DC Oxycodone HCl (Roxicodone) 30 mg Q4H PRN PO PAIN Last administered on 09:01; Start 11/11/16 at 04:00; Stop 12/04/16 at 11:36; Status DC Hydromorphone HCl 0.5 mg 0.5 mg Q4H PRN IV PUSH breakthrough pain Last administered on 11/16/16 16:41; Start 11/11/16 at 02:15; Stop 11/16/16 at 22:41; Status DC Levofloxacin/ Dextrose (Levaquin 750 Mg Premix Inj) 150 ml @ 100 mls/hr Q24H IV Last administered on 11/14/16 03:44; Start 11/11/16 at 03:00; Stop 11/14/16 at 10:19; Status DC Bupropion HCl (Wellbutrin Sr 12 Hr) 150 mg DAILY PO ; Start 11/11/16 at 09:00; Status Cancel Bupropion HCl (Wellbutrin Sr) 150 mg DAILY PO Last administered on 11/11/16 12 :45; Start 11/11/16 at 09:00; Stop 11/12/16 at 07:22; Status DC Ondansetron HCl (Zofran Inj) 4 mg Q6HR PRN IV PUSH NAUSEA Last administered on 12/06/16 17:36; Start 11/11/16 at 03:15 Dextrose (D50w (Vial) Inj) 25 ml UNSCH PRN IV PUSH HYPOGLYCEMIA-SEE COMMENTS; Start 11/12/16 at 11:45 Glucagon (Glucagon Inj) 1 mg UNSCH PRN OTHER HYPOGLYCEMIA-SEE COMMENTS; Start 11/12/16 at 11:45 Insulin Aspart (NovoLOG SUPPLEMENTAL SCALE) 1 ACHS SLIDING SCALE SQ Last administered on 12/16/16 06:49; Start 11/12/16 at 16:00 Docusate Sodium (Colace) 100 mg BID PO Last administered on 12/09/16 22:45; Start 11/13/16 at 21:00; Stop 12/10/16 at 16:04; Status DC Magnesium Citrate (Citroma Liq) 600 ml Q24H PRN PO CONSTIPATION Last administered on 12/13/16 01:45; Start 11/13/16 at 14:45 Nystatin (Mycostatin Powder) 1 applic BID TOPICAL Last administered on 22:09; Start 11/13/16 at 21:00 Levofloxacin (Levaquin) 500 mg DAILY@11 PO Last administered on 11/21/16 10:53 ; Start 11/15/16 at 11:00; Stop 11/22/16 at 10:59; Status DC Trazodone HCl (Desyrel) 100 mg HS PO Last administered on 11/16/16 20:32; Start 11/14/16 at 21:00; Stop 11/16/16 at 22:40; Status DC Trazodone HCl (Desyrel) 200 mg HS PO Last administered on 12/15/16 22:08; Start 11/17/16 at 21:00 Hydromorphone HCl (Dilaudid Pf Inj) 1 mg Q4H PRN IV PUSH breakthrough pain Last administered on 11/29/16 10:31; Start 11/17/16 at 02:15; Stop 11/29/16 at 12:37; Status DC Trazodone HCl (Desyrel) 100 mg ONCE ONCE PO Last administered on 11/16/16 23: 54; Start 11/16/16 at 22:45; Stop 11/16/16 at 22:46; Status DC Acetaminophen (Tylenol) 650 mg Q4H PRN PO Headache, fever Last administered on 12/09/16 08:49; Start 11/18/16 at 17:30 Insulin Detemir (Levemir Inj) 30 units BID SQ Last administered on 11/20/16 09: 20; Start 11/20/16 at 09:00; Stop 11/20/16 at 11:16; Status DC Insulin Aspart (NovoLOG INJ) 6 units TIDAC SQ Last administered on 11/30/16 11 :10; Start 11/20/16 at 08:00; Stop 11/30/16 at 15:15; Status DC Insulin Detemir (Levemir Inj) 35 units BID SQ Last administered on 11/30/16 10 :40; Start 11/20/16 at 21:00; Stop 11/30/16 at 15:16; Status DC Collagenase (Santyl Oint) 1 applic DAILY TOPICAL Last administered on 12/15/16 12:18; Start 11/23/16 at 12:45 Povidone Iodine (Betadine 10% Oint) 1 pkt DAILY TOPICAL ; Start 11/23/16 at 12: 45; Stop 11/23/16 at 18:32; Status DC Povidone Iodine (Betadine 10% Oint) 1 applic DAILY TOPICAL Last administered on 12/15/16 11:22; Start 11/23/16 at 18:32 Insulin Human Regular (NovoLIN R INJ) 10 units ONCE ONCE IV PUSH Last administered on 11/23/16 22:28; Start 11/23/16 at 20:45; Stop 11/23/16 at 20:46 ; Status DC Bupropion HCl 200 mg 200 mg BID PO Last administered on 11/29/16 09:11; Start 11/24/16 at 21:00; Stop 12/10/16 at 16:11; Status DC Lactated Ringer's 1,000 ml @ 30 mls/hr Q24H PRN IV SEE LABEL COMMENTS; Start at 08:30; Stop 11/28/16 at 08:31; Status DC Sodium Chloride (NS 500 ml Inj) 500 ml @ 30 mls/hr [id number] PRN IV SEE LABEL COMMENTS; Start 11/25/16 at 08:30; Stop 11/28/16 at 08:31; Status DC Metoprolol Tartrate (Lopressor) 25 mg MANAGER BALANCE PRN PO SEE LABEL COMMENTS; Start 11/25/16 at 08:30; Stop 11/28/16 at 08:31; Status DC Povidone Iodine (Betadine 5% Antisepsis Kit) 1 applic MANAGER BALANCE PRN EACH NARE SEE LABEL COMMENTS; Start 11/25/16 at 08:30; Stop 11/28/16 at 08:31; Status DC Chlorhexidine Gluconate (Chlorhexidine 2% Cloth) 3 pack MANAGER BALANCE PRN TOPICAL SEE LABEL COMMENTS; Start 11/25/16 at 08:30; Stop 11/28/16 at 08:31; Status DC Insulin Human Regular (NovoLIN R INJ) See Protocol Table ... MANAGER BALANCE PRN SQ SEE PROTOCOL TABLE; Start 11/25/16 at 08:30; Stop 11/28/16 at 08:31; Status DC Oxybutynin Chloride (Ditropan) 5 mg Q12HR PO Last administered on 12/14/16 09: 23; Start 11/28/16 at 14:00; Stop 12/14/16 at 13:31; Status DC Hydromorphone HCl (Dilaudid Pf Inj) 1.5 mg Q4H PRN IV PUSH breakthrough pain Last administered on 12/04/16 11:21; Start 11/29/16 at 14:15; Stop 12/04/16 at 11:36; Status DC Miscellaneous Medication (ASP Crit: Doc allergy to Penicillin/ Cephalosp) 1 UNSCH X1 PRN .XX PHARMACY DOCUMENTATION; Start 11/29/16 at 15:30; Stop at 15:29; Status DC Miscellaneous Medication 1 1 UNSCH X1 PRN XX PHARMACY DOCUMENTATION; Start at 15:30; Stop 11/30/16 at 15:29; Status DC Meropenem/Sodium Chloride (Merrem Inj/NS Inj) 100 ml @ 200 mls/hr Q8H IV Last administered on 12/01/16 09:21; Start 11/29/16 at 16:00; Stop 12/01/16 at 14:34 ; Status DC Miscellaneous Medication 1 1 UNSCH X1 PRN XX PHARMACY DOCUMENTATION; Start at 15:30; Stop 11/30/16 at 15:29; Status DC Linezolid 300 ml @ 300 mls/hr Q12H IV Last administered on 12/01/16 04:12; Start 11/29/16 at 16:00; Stop 12/01/16 at 14:34; Status DC Fluconazole/ Sodium Chloride (Diflucan 400 Mg Premix Bag) 200 ml @ 100 mls/hr Q24H IV Last administered on 11/30/16 18:42; Start 11/29/16 at 18:00; Stop at 14:34; Status DC Insulin Aspart (NovoLOG INJ) 12 units TIDAC SQ Last administered on 11/30/16 18:43; Start 11/30/16 at 17:00; Status Hold Insulin Detemir (Levemir Inj) 40 units BID SQ Last administered on 12/01/16 09 :23; Start 11/30/16 at 21:00; Stop 12/01/16 at 17:30; Status DC Midodrine (Proamatine) 10 mg Q8HR PO Last administered on 12/16/16 05:00; Start 11/30/16 at 21:00 Miscellaneous Medication (ASP Crit: Doc ESBL, MDR A baumannii or P aer) 1 UNSCH X1 PRN .XX PHARMACY DOCUMENTATION; Start 12/01/16 at 14:45; Stop 12/02/16 at 14 :44; Status DC Miscellaneous Medication 1 1 UNSCH X1 PRN XX PHARMACY DOCUMENTATION; Start at 14:45; Stop 12/02/16 at 14:44; Status DC Ertapenem/Sodium Chloride (INVanz INJ/NS Inj) 100 ml @ 200 mls/hr Q24H IV Last administered on 12/12/16 17:14; Start 12/01/16 at 16:00; Stop 12/13/16 at 09 :00; Status DC Insulin Detemir 20 units 20 units BID SQ Last administered on 12/15/16 20:13; Start 12/01/16 at 21:00 Sodium Chloride (NS 1000 ml Inj) 1,000 ml @ 1,000 mls/hr Q1H IV Last administered on 12/02/16 01:00; Start 12/02/16 at 00:00; Stop 12/02/16 at 01:59 ; Status DC Albumin Human (Albumin 5% Inj) 25 gm ONCE ONCE IV Last administered on 00:30; Start 12/02/16 at 00:00; Stop 12/02/16 at 00:07; Status DC Hydromorphone HCl (Dilaudid Pf Inj) 1 mg Q4H PRN IV PUSH breakthrough pain; Start 12/04/16 at 11:45; Stop 12/04/16 at 11:45; Status DC Hydromorphone HCl (Dilaudid Pf Inj) 1 mg Q4H PRN IV PUSH breakthrough pain Last administered on 12/06/16 12:22; Start 12/04/16 at 14:15; Stop 12/06/16 at 12:32; Status DC Oxycodone HCl (Roxicodone) 30 mg Q4H PRN PO PAIN SCALE 8 TO 10 Last administered on 12/16/16 00:42; Start 12/06/16 at 12:30 Bupropion HCl (Wellbutrin Sr) 150 mg DAILY PO Last administered on 12/15/16 11: 19; Start 12/10/16 at 16:15 Escitalopram Oxalate (Lexapro) 20 mg HS PO Last administered on 12/15/16 22:09 ; Start 12/10/16 at 21:00 Senna/Docusate Sodium (Erin-Colace) 1 tab BID PO Last administered on 12/15/16 22:08; Start 12/10/16 at 21:00 Zolpidem Tartrate (Ambien) 5 mg HS PRN PO INSOMNIA Last administered on 01:46; Start 12/10/16 at 21:00 Multi-Ingredient Ointment (Eucerin Cream) 1 applic ONCE ONCE TOPICAL Last administered on 12/11/16 00:54; Start 12/11/16 at 00:00; Stop 12/11/16 at 00:01 ; Status DC Diphenhydramine HCl (Benadryl 2% Cream) 1 applic TID PRN TOPICAL ITCHING Last administered on 12/11/16 16:09; Start 12/11/16 at 08:15 Trazodone HCl (Desyrel) 200 mg HS PO ; Start 12/11/16 at 21:00 Gabapentin (Neurontin) 300 mg TID PO Last administered on 12/15/16 17:43; Start 12/12/16 at 18:00 Oxybutynin Chloride (Ditropan) 5 mg Q8HR PO Last administered on 12/16/16 05:00 ; Start 12/14/16 at 14:00 Tolterodine Tartrate (Detrol La) 4 mg HS PO Last administered on 12/15/16 22:08 ; Start 12/14/16 at 21:00 Balanced Salt Solution (Bss Opth Soln) 15 applic STK-MED ONCE .ROUTE ; Start 12/15/16 at 08:04; Stop 12/15/16 at 08:05; Status DC Date of Insertion: Nov 25, 2016 A/P Assessment and Plan A/P Neurogenic Bladder Sepsis- source likely UTI- ESBL hypotension-resolved Better BP readings- continue Midodrine S/P Tx for UTI - S/p Levaquin and Ertapenem S/P replacement of Kyle catheter by Dr. Meraz- 11/25. On Oxybutynin 5mg bid. urine cath leakage- urology was reconsulted; patient declined catheter exchange- no urological intervention at this time per urology- urine cath needs to be changed later this month. Blood cultures- negative x5 days Diabetes Mellitus: insulin requiring- - reinforced and encourage - Monitor Accu-Cheks, Continue sliding scale insulin.- - on Levemir 20 units BID. - will consider increasing levemir if blood sugar remains elevated. Chronic pain. Home medications baclofen, morphine, oxycodone. continue Oramorph. Insomnia: Home medications Ambien PRN & Trazadone 200 qHS Morbid obesity: Outpatient general surgery referral needed for possible surgical interventions Chronic pressure ulcers: Wound care team ff- however refused the wound care. Documented on admission. Patient turning himself rigorously Sleep apnea, CPAP at night Anxiety and depression: no homicidal or suicidal ideations Was evaluated by psych in the ER, Felipe acted lifted, did not meet inpatient psychiatric and admission criteria. -Patient has long history of being on psychiatric medication, currently doing well on Lexapro . Previously was on [place] and did not do well with mood on this. -Psychiatry follow-up appreciated. Hyperlipidemia: Continue Lipitor Hypothyroidism: Continue levothyroxine chronic pain - on chronic pain meds- as noted above. Substance use: tox screen on admission significant for opiates, benzos, cannabinoids Full code. On Xarelto -DNR status palliative care following. Discharge Planning difficult discharge. case management notes reviewed. no accepting facility yet. Juan Diego Zambrano MD December 16, 2016 09:40
[2016-12-16] MEDS: DOCUSATE SODIUM 50 MG/SENNA 8.6 MG TAB PO SCH ×2 (09:49→20:21)
[2016-12-16] MEDS: ATORVASTATIN 40 MG TAB PO SCH (09:49)
[2016-12-16] MEDS: INSULIN DETEMIR 100 UNITS/ML VIAL SQ SCH ×2 (09:49→21:05)
[2016-12-16] MEDS: buPROPion HCL 150 MG SUSTAINED RELEASE TAB PO SCH (09:49)
[2016-12-16] MEDS: FAMOTIDINE 20 MG TAB PO SCH (09:49)
[2016-12-16] MEDS: ASCORBIC ACID 500 MG TAB PO SCH ×2 (09:49→20:22)
[2016-12-16] MEDS: GABAPENTIN 300 MG CAP PO SCH ×3 (09:49→18:10)
[2016-12-16] MEDS: COLLAGENASE OINT 30 GM TUBE TOPICAL SCH (09:50)
[2016-12-16] MEDS: SODIUM CHLORIDE 0.9% FLUSH 10 ML FLUSH IV FLUSH SCH ×2 (09:50→20:21)
[2016-12-16] MEDS: NYSTATIN 100,000 U/GM PWD 15 GM BTL TOPICAL SCH ×2 (09:51→20:25)
[2016-12-16] MEDS: POVIDONE IODINE 10% OINT 30 GM TUBE TOPICAL SCH (09:51)
[2016-12-16] MEDS: traZODone HCL 100 MG TAB PO SCH ×2 (20:22)
[2016-12-16] MEDS: TOLTERODINE TARTRATE 4 MG CAP LA PO SCH (20:22)
[2016-12-16] MEDS: ESCITALOPRAM OXALATE 20 MG TAB PO SCH (20:22)
[2016-12-16] MEDS: RIVAROXABAN 20 MG TAB PO SCH (20:23)
[2016-12-16] MEDS: BACLOFEN 20 MG TAB PO PRN (20:30)
[2016-12-17] VITALS: BP 122/68; PULSE 80; RESP 20; TEMP 97.2; O2SAT 95
[2016-12-17] MEDS: ZOLPIDEM TARTRATE 5 MG TAB PO PRN (01:04)
[2016-12-17] MEDS: MORPHINE SULFATE 30 MG CONTROLLED RELEASE TAB PO SCH ×3 (01:05→17:27)
[2016-12-17] MEDS: MORPHINE SULFATE 100 MG CONTROLLED RELEASE TAB PO SCH ×3 (01:05→17:28)
[2016-12-17] MEDS: OXYBUTYNIN CHLORIDE 5 MG TAB PO SCH ×3 (05:07→21:35)
[2016-12-17] MEDS: LEVOTHYROXINE SODIUM 50 MCG TAB PO SCH (05:07)
[2016-12-17] MEDS: INSULIN ASPART SUPPLEMENTAL SCALE SQ SCH ×4 (05:07→21:34)
[2016-12-17] MEDS: MIDODRINE 5 MG TAB PO SCH ×3 (05:07→21:34)
[2016-12-17 08:00] VITALS: BP 129/72; PULSE 93; RESP 16; TEMP 97.5; O2SAT 97
--- NOTE | 2016-12-17 08:50 | HHI.PR ---
Subjective Remarks in no distress. clinically no change. Objective Vitals Vital Signs Date Time Temp Pulse Resp B/P Pulse Ox O2 Delivery O2 Flow Rate FiO2 12/17/16 00:00 97.2 80 20 122/68 95 12/16/16 20:19 99 12/16/16 20:00 96.4 86 20 129/62 96 12/16/16 16:00 96.9 69 17 105/52 99 12/16/16 12:00 95.7 71 22 85/54 99 I/O 12/16/16 12/16/16 12/16/16 12/17/16 12/17/16 12/17/16 07:00 15:00 23:00 07:00 15:00 23:00 Intake Total 720 ml 360 ml 480 ml 640 ml Output Total 1800 ml 1950 ml 1000 ml 1250 ml Balance -1080 ml -1590 ml -520 ml -610 ml Intake Oral 720 ml 360 ml 480 ml 640 ml Output Urine Total 1800 ml 1950 ml 1000 ml 1250 ml # Bowel Movements 0 0 0 0 Objective Remarks GENERAL: morbidly obese, in no apparent distress. CARDIOVASCULAR: Regular rate and regular rhythm without murmurs, gallops, or rubs. RESPIRATORY: Clear to auscultation. Breath sounds equal bilaterally. No wheezes , rales, or rhonchi. GASTROINTESTINAL: Abdomen soft, non-tender, nondistended. Normal, active bowel sounds MUSCULOSKELETAL: Extremities without clubbing, cyanosis, or edema. NEURO: Alert & Oriented x4 to person, place, time, situation. Moves all ext x4 Procedures 11/25- S/P flexible cystoscopy with replacement of kyle catheter (Councill catheter) Medications and IVs Current Medications Insulin Human Regular (NovoLIN R INJ) 10 units ONCE ONCE SQ Last administered on 11/10/16 21:05; Start 11/10/16 at 16:00; Stop 11/10/16 at 16:01; Status DC Sodium Chloride (NS Flush) 2 ml UNSCH PRN IV FLUSH FLUSH AFTER USING IV ACCESS Last administered on 11/28/16 07:09; Start 11/10/16 at 21:45 Sodium Chloride (NS Flush) 2 ml BID IV FLUSH Last administered on 12/16/16 20: 21; Start 11/11/16 at 09:00 Naloxone HCl (Narcan Inj) 0.4 mg UNSCH PRN IV SEE LABEL COMMENTS; Start at 21:45 Albuterol Sulfate (Albuterol Neb) 2.5 mg Q6HR ALT NEB PRN NEB SHORTNESS OF BREATH; Start 11/11/16 at 02:00 Alprazolam (Xanax) 2 mg Q6HR PRN PO BELÉN Last administered on 12/15/16 22:06; Start 11/11/16 at 02:00 Ascorbic Acid (Vitamin C) 500 mg BID PO Last administered on 12/16/16 20:22; Start 11/11/16 at 09:00 Atorvastatin Calcium (Lipitor) 40 mg DAILY PO Last administered on 12/16/16 09: 49; Start 11/11/16 at 09:00 Baclofen (Lioresal) 20 mg Q6HR PRN PO MUSCLE SPASM Last administered on 20:30; Start 11/11/16 at 02:00 Bupropion HCl (Wellbutrin Xl 24 Hr) 150 mg DAILY PO ; Start 11/11/16 at 09:00; Status UNV Bupropion HCl (Wellbutrin Sr) 150 mg BID PO Last administered on 11/24/16 10: 23; Start 11/11/16 at 09:00; Stop 11/24/16 at 14:19; Status DC Chlorhexidine Gluconate (Peridex 0.12% Liq) 10 ml BID PRN SWISH-SPIT peridontitis; Start 11/11/16 at 02:00 Clotrimazole (Lotrimin 1% Cream) 1 applic DAILY PRN TOPICAL RASH IN SKIN FOLDS Last administered on 12/05/16 11:50; Start 11/11/16 at 02:00 Collagenase (Santyl Oint) 1 applic Q8HR TOPICAL Last administered on 11/23/16 12:12; Start 11/11/16 at 06:00; Stop 11/23/16 at 12:34; Status DC Escitalopram Oxalate (Lexapro) 20 mg HS PO Last administered on 11/13/16 21:18 ; Start 11/11/16 at 21:00; Stop 11/14/16 at 15:43; Status DC Furosemide (Lasix) 40 mg BID PO Last administered on 11/28/16 08:34; Start at 09:00; Status Hold Insulin Detemir (Levemir Inj) 55 units HS SQ Last administered on 11/19/16 21: 43; Start 11/11/16 at 21:00; Stop 11/19/16 at 22:31; Status DC Levothyroxine Sodium (Synthroid) 50 mcg DAILY@06 PO Last administered on 05:07; Start 11/11/16 at 06:00 Morphine Sulfate (Oramorph Sr) 30 mg Q8H PO Last administered on 12/17/16 01:05 ; Start 11/11/16 at 02:00 Morphine Sulfate (Oramorph Sr) 100 mg Q8H PO Last administered on 12/17/16 01: 05; Start 11/11/16 at 02:00 Potassium Chloride (KCl) 20 meq DAILY PO Last administered on 11/16/16 08:47; Start 11/11/16 at 09:00; Status Hold Promethazine HCl (Phenergan) 25 mg Q8HR PRN PO Nausea/Vomiting; Start 11/11/16 at 02:00 Famotidine (Pepcid) 20 mg DAILY PO Last administered on 12/16/16 09:49; Start 11/11/16 at 09:00 Rivaroxaban (Xarelto) 20 mg HS PO Last administered on 12/16/16 20:23; Start at 21:00 Simethicone (Mylicon Chew) 160 mg ACHS PRN CHEW GAS RETENTION Last administered on 12/13/16 20:57; Start 11/11/16 at 02:00 Trazodone HCl (Desyrel) 200 mg HS PO Last administered on 11/13/16 21:17; Start 11/11/16 at 21:00; Stop 11/14/16 at 10:19; Status DC Zolpidem Tartrate (Ambien) 10 mg HS PO Last administered on 12/09/16 22:44; Start 11/11/16 at 21:00; Stop 12/10/16 at 16:13; Status DC Tolterodine Tartrate (Detrol La) 2 mg HS PO Last administered on 12/13/16 20:57 ; Start 11/11/16 at 21:00; Stop 12/14/16 at 13:31; Status DC Oxycodone HCl (Roxicodone) 30 mg Q4H PRN PO PAIN Last administered on 09:01; Start 11/11/16 at 04:00; Stop 12/04/16 at 11:36; Status DC Hydromorphone HCl 0.5 mg 0.5 mg Q4H PRN IV PUSH breakthrough pain Last administered on 11/16/16 16:41; Start 11/11/16 at 02:15; Stop 11/16/16 at 22:41; Status DC Levofloxacin/ Dextrose (Levaquin 750 Mg Premix Inj) 150 ml @ 100 mls/hr Q24H IV Last administered on 11/14/16 03:44; Start 11/11/16 at 03:00; Stop 11/14/16 at 10:19; Status DC Bupropion HCl (Wellbutrin Sr 12 Hr) 150 mg DAILY PO ; Start 11/11/16 at 09:00; Status Cancel Bupropion HCl (Wellbutrin Sr) 150 mg DAILY PO Last administered on 11/11/16 12 :45; Start 11/11/16 at 09:00; Stop 11/12/16 at 07:22; Status DC Ondansetron HCl (Zofran Inj) 4 mg Q6HR PRN IV PUSH NAUSEA Last administered on 12/06/16 17:36; Start 11/11/16 at 03:15 Dextrose (D50w (Vial) Inj) 25 ml UNSCH PRN IV PUSH HYPOGLYCEMIA-SEE COMMENTS; Start 11/12/16 at 11:45 Glucagon (Glucagon Inj) 1 mg UNSCH PRN OTHER HYPOGLYCEMIA-SEE COMMENTS; Start 11/12/16 at 11:45 Insulin Aspart (NovoLOG SUPPLEMENTAL SCALE) 1 ACHS SLIDING SCALE SQ Last administered on 12/17/16 05:07; Start 11/12/16 at 16:00 Docusate Sodium (Colace) 100 mg BID PO Last administered on 12/09/16 22:45; Start 11/13/16 at 21:00; Stop 12/10/16 at 16:04; Status DC Magnesium Citrate (Citroma Liq) 600 ml Q24H PRN PO CONSTIPATION Last administered on 12/13/16 01:45; Start 11/13/16 at 14:45 Nystatin (Mycostatin Powder) 1 applic BID TOPICAL Last administered on 20:25; Start 11/13/16 at 21:00 Levofloxacin (Levaquin) 500 mg DAILY@11 PO Last administered on 11/21/16 10:53 ; Start 11/15/16 at 11:00; Stop 11/22/16 at 10:59; Status DC Trazodone HCl (Desyrel) 100 mg HS PO Last administered on 11/16/16 20:32; Start 11/14/16 at 21:00; Stop 11/16/16 at 22:40; Status DC Trazodone HCl (Desyrel) 200 mg HS PO Last administered on 12/16/16 20:22; Start 11/17/16 at 21:00 Hydromorphone HCl (Dilaudid Pf Inj) 1 mg Q4H PRN IV PUSH breakthrough pain Last administered on 11/29/16 10:31; Start 11/17/16 at 02:15; Stop 11/29/16 at 12:37; Status DC Trazodone HCl (Desyrel) 100 mg ONCE ONCE PO Last administered on 11/16/16 23: 54; Start 11/16/16 at 22:45; Stop 11/16/16 at 22:46; Status DC Acetaminophen (Tylenol) 650 mg Q4H PRN PO Headache, fever Last administered on 12/09/16 08:49; Start 11/18/16 at 17:30 Insulin Detemir (Levemir Inj) 30 units BID SQ Last administered on 11/20/16 09: 20; Start 11/20/16 at 09:00; Stop 11/20/16 at 11:16; Status DC Insulin Aspart (NovoLOG INJ) 6 units TIDAC SQ Last administered on 11/30/16 11 :10; Start 11/20/16 at 08:00; Stop 11/30/16 at 15:15; Status DC Insulin Detemir (Levemir Inj) 35 units BID SQ Last administered on 11/30/16 10 :40; Start 11/20/16 at 21:00; Stop 11/30/16 at 15:16; Status DC Collagenase (Santyl Oint) 1 applic DAILY TOPICAL Last administered on 12/16/16 09:50; Start 11/23/16 at 12:45 Povidone Iodine (Betadine 10% Oint) 1 pkt DAILY TOPICAL ; Start 11/23/16 at 12: 45; Stop 11/23/16 at 18:32; Status DC Povidone Iodine (Betadine 10% Oint) 1 applic DAILY TOPICAL Last administered on 12/16/16 09:51; Start 11/23/16 at 18:32 Insulin Human Regular (NovoLIN R INJ) 10 units ONCE ONCE IV PUSH Last administered on 11/23/16 22:28; Start 11/23/16 at 20:45; Stop 11/23/16 at 20:46 ; Status DC Bupropion HCl 200 mg 200 mg BID PO Last administered on 11/29/16 09:11; Start 11/24/16 at 21:00; Stop 12/10/16 at 16:11; Status DC Lactated Ringer's 1,000 ml @ 30 mls/hr Q24H PRN IV SEE LABEL COMMENTS; Start at 08:30; Stop 11/28/16 at 08:31; Status DC Sodium Chloride (NS 500 ml Inj) 500 ml @ 30 mls/hr [id number] PRN IV SEE LABEL COMMENTS; Start 11/25/16 at 08:30; Stop 11/28/16 at 08:31; Status DC Metoprolol Tartrate (Lopressor) 25 mg RADIATION ONCOLOGY NURSE PRN PO SEE LABEL COMMENTS; Start 11/25/16 at 08:30; Stop 11/28/16 at 08:31; Status DC Povidone Iodine (Betadine 5% Antisepsis Kit) 1 applic RADIATION ONCOLOGY NURSE PRN EACH NARE SEE LABEL COMMENTS; Start 11/25/16 at 08:30; Stop 11/28/16 at 08:31; Status DC Chlorhexidine Gluconate (Chlorhexidine 2% Cloth) 3 pack RADIATION ONCOLOGY NURSE PRN TOPICAL SEE LABEL COMMENTS; Start 11/25/16 at 08:30; Stop 11/28/16 at 08:31; Status DC Insulin Human Regular (NovoLIN R INJ) See Protocol Table ... RADIATION ONCOLOGY NURSE PRN SQ SEE PROTOCOL TABLE; Start 11/25/16 at 08:30; Stop 11/28/16 at 08:31; Status DC Oxybutynin Chloride (Ditropan) 5 mg Q12HR PO Last administered on 12/14/16 09: 23; Start 11/28/16 at 14:00; Stop 12/14/16 at 13:31; Status DC Hydromorphone HCl (Dilaudid Pf Inj) 1.5 mg Q4H PRN IV PUSH breakthrough pain Last administered on 12/04/16 11:21; Start 11/29/16 at 14:15; Stop 12/04/16 at 11:36; Status DC Miscellaneous Medication (ASP Crit: Doc allergy to Penicillin/ Cephalosp) 1 UNSCH X1 PRN .XX PHARMACY DOCUMENTATION; Start 11/29/16 at 15:30; Stop at 15:29; Status DC Miscellaneous Medication 1 1 UNSCH X1 PRN XX PHARMACY DOCUMENTATION; Start at 15:30; Stop 11/30/16 at 15:29; Status DC Meropenem/Sodium Chloride (Merrem Inj/NS Inj) 100 ml @ 200 mls/hr Q8H IV Last administered on 12/01/16 09:21; Start 11/29/16 at 16:00; Stop 12/01/16 at 14:34 ; Status DC Miscellaneous Medication 1 1 UNSCH X1 PRN XX PHARMACY DOCUMENTATION; Start at 15:30; Stop 11/30/16 at 15:29; Status DC Linezolid 300 ml @ 300 mls/hr Q12H IV Last administered on 12/01/16 04:12; Start 11/29/16 at 16:00; Stop 12/01/16 at 14:34; Status DC Fluconazole/ Sodium Chloride (Diflucan 400 Mg Premix Bag) 200 ml @ 100 mls/hr Q24H IV Last administered on 11/30/16 18:42; Start 11/29/16 at 18:00; Stop at 14:34; Status DC Insulin Aspart (NovoLOG INJ) 12 units TIDAC SQ Last administered on 11/30/16 18:43; Start 11/30/16 at 17:00; Status Hold Insulin Detemir (Levemir Inj) 40 units BID SQ Last administered on 12/01/16 09 :23; Start 11/30/16 at 21:00; Stop 12/01/16 at 17:30; Status DC Midodrine (Proamatine) 10 mg Q8HR PO Last administered on 12/17/16 05:07; Start 11/30/16 at 21:00 Miscellaneous Medication (ASP Crit: Doc ESBL, MDR A baumannii or P aer) 1 UNSCH X1 PRN .XX PHARMACY DOCUMENTATION; Start 12/01/16 at 14:45; Stop 12/02/16 at 14 :44; Status DC Miscellaneous Medication 1 1 UNSCH X1 PRN XX PHARMACY DOCUMENTATION; Start at 14:45; Stop 12/02/16 at 14:44; Status DC Ertapenem/Sodium Chloride (INVanz INJ/NS Inj) 100 ml @ 200 mls/hr Q24H IV Last administered on 12/12/16 17:14; Start 12/01/16 at 16:00; Stop 12/13/16 at 09 :00; Status DC Insulin Detemir 20 units 20 units BID SQ Last administered on 12/16/16 21:05; Start 12/01/16 at 21:00 Sodium Chloride (NS 1000 ml Inj) 1,000 ml @ 1,000 mls/hr Q1H IV Last administered on 12/02/16 01:00; Start 12/02/16 at 00:00; Stop 12/02/16 at 01:59 ; Status DC Albumin Human (Albumin 5% Inj) 25 gm ONCE ONCE IV Last administered on 00:30; Start 12/02/16 at 00:00; Stop 12/02/16 at 00:07; Status DC Hydromorphone HCl (Dilaudid Pf Inj) 1 mg Q4H PRN IV PUSH breakthrough pain; Start 12/04/16 at 11:45; Stop 12/04/16 at 11:45; Status DC Hydromorphone HCl (Dilaudid Pf Inj) 1 mg Q4H PRN IV PUSH breakthrough pain Last administered on 12/06/16 12:22; Start 12/04/16 at 14:15; Stop 12/06/16 at 12:32; Status DC Oxycodone HCl (Roxicodone) 30 mg Q4H PRN PO PAIN SCALE 8 TO 10 Last administered on 12/17/16 03:07; Start 12/06/16 at 12:30 Bupropion HCl (Wellbutrin Sr) 150 mg DAILY PO Last administered on 12/16/16 09: 49; Start 12/10/16 at 16:15 Escitalopram Oxalate (Lexapro) 20 mg HS PO Last administered on 12/16/16 20:22 ; Start 12/10/16 at 21:00 Senna/Docusate Sodium (Erin-Colace) 1 tab BID PO Last administered on 12/16/16 20:21; Start 12/10/16 at 21:00 Zolpidem Tartrate (Ambien) 5 mg HS PRN PO INSOMNIA Last administered on 01:04; Start 12/10/16 at 21:00 Multi-Ingredient Ointment (Eucerin Cream) 1 applic ONCE ONCE TOPICAL Last administered on 12/11/16 00:54; Start 12/11/16 at 00:00; Stop 12/11/16 at 00:01 ; Status DC Diphenhydramine HCl (Benadryl 2% Cream) 1 applic TID PRN TOPICAL ITCHING Last administered on 12/11/16 16:09; Start 12/11/16 at 08:15 Trazodone HCl (Desyrel) 200 mg HS PO ; Start 12/11/16 at 21:00 Gabapentin (Neurontin) 300 mg TID PO Last administered on 12/16/16 18:10; Start 12/12/16 at 18:00 Oxybutynin Chloride (Ditropan) 5 mg Q8HR PO Last administered on 12/17/16 05:07 ; Start 12/14/16 at 14:00 Tolterodine Tartrate (Detrol La) 4 mg HS PO Last administered on 12/16/16 20:22 ; Start 12/14/16 at 21:00 Balanced Salt Solution (Bss Opth Soln) 15 applic STK-MED ONCE .ROUTE ; Start 12/15/16 at 08:04; Stop 12/15/16 at 08:05; Status DC Date of Insertion: Nov 25, 2016 A/P Assessment and Plan A/P Neurogenic Bladder Sepsis- source likely UTI- ESBL hypotension-resolved Better BP readings- continue Midodrine S/P Tx for UTI - S/p Levaquin and Ertapenem S/P replacement of Kyle catheter by Dr. Meraz- 11/25. On Oxybutynin 5mg bid. urine cath leakage- urology was reconsulted; patient declined catheter exchange- no urological intervention at this time per urology- urine cath needs to be changed later this month. Blood cultures- negative x5 days Diabetes Mellitus: insulin requiring- - reinforced and encourage - Monitor Accu-Cheks, Continue sliding scale insulin.- - on Levemir 20 units BID. - increase levemir to 20 units subq in am and 22 units subq qhs. -continue to monitor and adjust the regimen as needed. Chronic pain. Home medications baclofen, morphine, oxycodone. continue Oramorph. Insomnia: Home medications Ambien PRN & Trazadone 200 qHS Morbid obesity: Outpatient general surgery referral needed for possible surgical interventions Chronic pressure ulcers: Wound care team ff- however previously refused the wound care. Patient turning himself rigorously Sleep apnea, CPAP at night Anxiety and depression: no homicidal or suicidal ideations Was evaluated by psych in the ER, Felipe acted lifted, did not meet inpatient psychiatric and admission criteria. -Patient has long history of being on psychiatric medication, currently doing well on Lexapro . Previously was on [place] and did not do well with mood on this. -Psychiatry follow-up appreciated. Hyperlipidemia: Continue Lipitor Hypothyroidism: Continue levothyroxine chronic pain - on chronic pain meds- as noted above. Substance use: tox screen on admission significant for opiates, benzos, cannabinoids Full code. On Xarelto -DNR status palliative care following. Discharge Planning difficult discharge. case management notes reviewed. no accepting facility yet. Juan Diego Zambrano MD December 17, 2016 08:50
[2016-12-17] MEDS: ASCORBIC ACID 500 MG TAB PO SCH ×2 (09:33→21:33)
[2016-12-17] MEDS: buPROPion HCL 150 MG SUSTAINED RELEASE TAB PO SCH (09:33)
[2016-12-17] MEDS: FAMOTIDINE 20 MG TAB PO SCH (09:33)
[2016-12-17] MEDS: GABAPENTIN 300 MG CAP PO SCH ×3 (09:33→17:27)
[2016-12-17] MEDS: DOCUSATE SODIUM 50 MG/SENNA 8.6 MG TAB PO SCH ×2 (09:33→21:33)
[2016-12-17] MEDS: ATORVASTATIN 40 MG TAB PO SCH (09:33)
[2016-12-17] MEDS: SODIUM CHLORIDE 0.9% FLUSH 10 ML FLUSH IV FLUSH SCH ×2 (09:34→21:35)
[2016-12-17] MEDS: POVIDONE IODINE 10% OINT 30 GM TUBE TOPICAL SCH (09:35)
[2016-12-17] MEDS: NYSTATIN 100,000 U/GM PWD 15 GM BTL TOPICAL SCH ×2 (09:35→21:32)
[2016-12-17] MEDS: COLLAGENASE OINT 30 GM TUBE TOPICAL SCH (09:36)
[2016-12-17 12:00] VITALS: BP 101/53; PULSE 77; RESP 17; TEMP 97.2; O2SAT 98
[2016-12-17 16:00] VITALS: BP 97/57; PULSE 82; RESP 16; TEMP 97.3; O2SAT 100
[2016-12-17] MEDS: BACLOFEN 20 MG TAB PO PRN (17:28)
[2016-12-17 20:00] VITALS: BP 119/57; PULSE 90; RESP 20; TEMP 97.9; O2SAT 97
[2016-12-17] MEDS: traZODone HCL 100 MG TAB PO SCH ×2 (21:00→21:35)
[2016-12-17] MEDS: TOLTERODINE TARTRATE 4 MG CAP LA PO SCH (21:32)
[2016-12-17] MEDS: ESCITALOPRAM OXALATE 20 MG TAB PO SCH (21:32)
[2016-12-17] MEDS: RIVAROXABAN 20 MG TAB PO SCH (21:33)
[2016-12-17] MEDS: INSULIN DETEMIR 100 UNITS/ML VIAL SQ SCH (21:33)
[2016-12-18] VITALS: BP 107/62; PULSE 86; RESP 20; TEMP 97.9; O2SAT 94
[2016-12-18] MEDS: ZOLPIDEM TARTRATE 5 MG TAB PO PRN (01:35)
[2016-12-18] MEDS: BACLOFEN 20 MG TAB PO PRN ×2 (01:45→16:08)
[2016-12-18] MEDS: ALPRAZolam 1 MG TAB PO PRN ×2 (01:45→03:10)
[2016-12-18] MEDS: MORPHINE SULFATE 100 MG CONTROLLED RELEASE TAB PO SCH ×3 (02:00→18:29)
[2016-12-18] MEDS: MORPHINE SULFATE 30 MG CONTROLLED RELEASE TAB PO SCH ×3 (02:00→18:28)
[2016-12-18] MEDS: INSULIN DETEMIR 100 UNITS/ML VIAL SQ SCH ×2 (06:19→20:46)
[2016-12-18] MEDS: INSULIN ASPART SUPPLEMENTAL SCALE SQ SCH ×4 (06:19→20:46)
[2016-12-18] MEDS: OXYBUTYNIN CHLORIDE 5 MG TAB PO SCH ×3 (06:20→20:48)
[2016-12-18] MEDS: LEVOTHYROXINE SODIUM 50 MCG TAB PO SCH (06:20)
[2016-12-18] MEDS: MIDODRINE 5 MG TAB PO SCH ×3 (06:20→20:48)
[2016-12-18 08:00] VITALS: BP 106/58; PULSE 71; RESP 16; TEMP 97.2; O2SAT 96
--- NOTE | 2016-12-18 08:16 | HHI.PR ---
Subjective Remarks in no acute distress. d/w the RN and reported that the patient keeps refusing part of his care. Objective Vitals Vital Signs Date Time Temp Pulse Resp B/P Pulse Ox O2 Delivery O2 Flow Rate FiO2 12/18/16 00:00 97.9 86 20 107/62 94 12/17/16 20:00 97.9 90 20 119/57 97 12/17/16 16:00 97.3 82 16 97/57 100 12/17/16 12:00 97.2 77 17 101/53 98 I/O 12/17/16 12/17/16 12/17/16 12/18/16 12/18/16 12/18/16 07:00 15:00 23:00 07:00 15:00 23:00 Intake Total 640 ml 0 ml 720 ml 720 ml Output Total 1250 ml 2500 ml 3350 ml 3050 ml Balance -610 ml -2500 ml -2630 ml -2330 ml Intake Oral 640 ml 720 ml 720 ml IV Total 0 ml Output Urine Total 1250 ml 2500 ml 3350 ml 3050 ml # Bowel Movements 0 0 0 Objective Remarks GENERAL: morbidly obese, in no apparent distress. CARDIOVASCULAR: Regular rate and regular rhythm without murmurs, gallops, or rubs. RESPIRATORY: Clear to auscultation. Breath sounds equal bilaterally. No wheezes , rales, or rhonchi. GASTROINTESTINAL: Abdomen soft, non-tender, nondistended. Normal, active bowel sounds MUSCULOSKELETAL: Extremities without clubbing, cyanosis, or edema. NEURO: Alert & Oriented x4 to person, place, time, situation. Moves all ext x4 Procedures 11/25- S/P flexible cystoscopy with replacement of kyle catheter (Councill catheter) Medications and IVs Current Medications Insulin Human Regular (NovoLIN R INJ) 10 units ONCE ONCE SQ Last administered on 11/10/16 21:05; Start 11/10/16 at 16:00; Stop 11/10/16 at 16:01; Status DC Sodium Chloride (NS Flush) 2 ml UNSCH PRN IV FLUSH FLUSH AFTER USING IV ACCESS Last administered on 11/28/16 07:09; Start 11/10/16 at 21:45 Sodium Chloride (NS Flush) 2 ml BID IV FLUSH Last administered on 12/17/16 21: 35; Start 11/11/16 at 09:00 Naloxone HCl (Narcan Inj) 0.4 mg UNSCH PRN IV SEE LABEL COMMENTS; Start at 21:45 Albuterol Sulfate (Albuterol Neb) 2.5 mg Q6HR ALT NEB PRN NEB SHORTNESS OF BREATH; Start 11/11/16 at 02:00 Alprazolam (Xanax) 2 mg Q6HR PRN PO BELÉN Last administered on 12/18/16 03:10; Start 11/11/16 at 02:00 Ascorbic Acid (Vitamin C) 500 mg BID PO Last administered on 12/17/16 21:33; Start 11/11/16 at 09:00 Atorvastatin Calcium (Lipitor) 40 mg DAILY PO Last administered on 12/17/16 09: 33; Start 11/11/16 at 09:00 Baclofen (Lioresal) 20 mg Q6HR PRN PO MUSCLE SPASM Last administered on 01:45; Start 11/11/16 at 02:00 Bupropion HCl (Wellbutrin Xl 24 Hr) 150 mg DAILY PO ; Start 11/11/16 at 09:00; Status UNV Bupropion HCl (Wellbutrin Sr) 150 mg BID PO Last administered on 11/24/16 10: 23; Start 11/11/16 at 09:00; Stop 11/24/16 at 14:19; Status DC Chlorhexidine Gluconate (Peridex 0.12% Liq) 10 ml BID PRN SWISH-SPIT peridontitis; Start 11/11/16 at 02:00 Clotrimazole (Lotrimin 1% Cream) 1 applic DAILY PRN TOPICAL RASH IN SKIN FOLDS Last administered on 12/05/16 11:50; Start 11/11/16 at 02:00 Collagenase (Santyl Oint) 1 applic Q8HR TOPICAL Last administered on 11/23/16 12:12; Start 11/11/16 at 06:00; Stop 11/23/16 at 12:34; Status DC Escitalopram Oxalate (Lexapro) 20 mg HS PO Last administered on 11/13/16 21:18 ; Start 11/11/16 at 21:00; Stop 11/14/16 at 15:43; Status DC Furosemide (Lasix) 40 mg BID PO Last administered on 11/28/16 08:34; Start at 09:00; Status Hold Insulin Detemir (Levemir Inj) 55 units HS SQ Last administered on 11/19/16 21: 43; Start 11/11/16 at 21:00; Stop 11/19/16 at 22:31; Status DC Levothyroxine Sodium (Synthroid) 50 mcg DAILY@06 PO Last administered on 06:20; Start 11/11/16 at 06:00 Morphine Sulfate (Oramorph Sr) 30 mg Q8H PO Last administered on 12/18/16 02:00 ; Start 11/11/16 at 02:00 Morphine Sulfate (Oramorph Sr) 100 mg Q8H PO Last administered on 12/18/16 02: 00; Start 11/11/16 at 02:00 Potassium Chloride (KCl) 20 meq DAILY PO Last administered on 11/16/16 08:47; Start 11/11/16 at 09:00; Status Hold Promethazine HCl (Phenergan) 25 mg Q8HR PRN PO Nausea/Vomiting; Start 11/11/16 at 02:00 Famotidine (Pepcid) 20 mg DAILY PO Last administered on 12/17/16 09:33; Start 11/11/16 at 09:00 Rivaroxaban (Xarelto) 20 mg HS PO Last administered on 12/17/16 21:33; Start at 21:00 Simethicone (Mylicon Chew) 160 mg ACHS PRN CHEW GAS RETENTION Last administered on 12/13/16 20:57; Start 11/11/16 at 02:00 Trazodone HCl (Desyrel) 200 mg HS PO Last administered on 11/13/16 21:17; Start 11/11/16 at 21:00; Stop 11/14/16 at 10:19; Status DC Zolpidem Tartrate (Ambien) 10 mg HS PO Last administered on 12/09/16 22:44; Start 11/11/16 at 21:00; Stop 12/10/16 at 16:13; Status DC Tolterodine Tartrate (Detrol La) 2 mg HS PO Last administered on 12/13/16 20:57 ; Start 11/11/16 at 21:00; Stop 12/14/16 at 13:31; Status DC Oxycodone HCl (Roxicodone) 30 mg Q4H PRN PO PAIN Last administered on 09:01; Start 11/11/16 at 04:00; Stop 12/04/16 at 11:36; Status DC Hydromorphone HCl 0.5 mg 0.5 mg Q4H PRN IV PUSH breakthrough pain Last administered on 11/16/16 16:41; Start 11/11/16 at 02:15; Stop 11/16/16 at 22:41; Status DC Levofloxacin/ Dextrose (Levaquin 750 Mg Premix Inj) 150 ml @ 100 mls/hr Q24H IV Last administered on 11/14/16 03:44; Start 11/11/16 at 03:00; Stop 11/14/16 at 10:19; Status DC Bupropion HCl (Wellbutrin Sr 12 Hr) 150 mg DAILY PO ; Start 11/11/16 at 09:00; Status Cancel Bupropion HCl (Wellbutrin Sr) 150 mg DAILY PO Last administered on 11/11/16 12 :45; Start 11/11/16 at 09:00; Stop 11/12/16 at 07:22; Status DC Ondansetron HCl (Zofran Inj) 4 mg Q6HR PRN IV PUSH NAUSEA Last administered on 12/06/16 17:36; Start 11/11/16 at 03:15 Dextrose (D50w (Vial) Inj) 25 ml UNSCH PRN IV PUSH HYPOGLYCEMIA-SEE COMMENTS; Start 11/12/16 at 11:45 Glucagon (Glucagon Inj) 1 mg UNSCH PRN OTHER HYPOGLYCEMIA-SEE COMMENTS; Start 11/12/16 at 11:45 Insulin Aspart (NovoLOG SUPPLEMENTAL SCALE) 1 ACHS SLIDING SCALE SQ Last administered on 12/18/16 06:19; Start 11/12/16 at 16:00 Docusate Sodium (Colace) 100 mg BID PO Last administered on 12/09/16 22:45; Start 11/13/16 at 21:00; Stop 12/10/16 at 16:04; Status DC Magnesium Citrate (Citroma Liq) 600 ml Q24H PRN PO CONSTIPATION Last administered on 12/13/16 01:45; Start 11/13/16 at 14:45 Nystatin (Mycostatin Powder) 1 applic BID TOPICAL Last administered on 21:32; Start 11/13/16 at 21:00 Levofloxacin (Levaquin) 500 mg DAILY@11 PO Last administered on 11/21/16 10:53 ; Start 11/15/16 at 11:00; Stop 11/22/16 at 10:59; Status DC Trazodone HCl (Desyrel) 100 mg HS PO Last administered on 11/16/16 20:32; Start 11/14/16 at 21:00; Stop 11/16/16 at 22:40; Status DC Trazodone HCl (Desyrel) 200 mg HS PO Last administered on 12/17/16 21:35; Start 11/17/16 at 21:00 Hydromorphone HCl (Dilaudid Pf Inj) 1 mg Q4H PRN IV PUSH breakthrough pain Last administered on 11/29/16 10:31; Start 11/17/16 at 02:15; Stop 11/29/16 at 12:37; Status DC Trazodone HCl (Desyrel) 100 mg ONCE ONCE PO Last administered on 11/16/16 23: 54; Start 11/16/16 at 22:45; Stop 11/16/16 at 22:46; Status DC Acetaminophen (Tylenol) 650 mg Q4H PRN PO Headache, fever Last administered on 12/09/16 08:49; Start 11/18/16 at 17:30 Insulin Detemir (Levemir Inj) 30 units BID SQ Last administered on 11/20/16 09: 20; Start 11/20/16 at 09:00; Stop 11/20/16 at 11:16; Status DC Insulin Aspart (NovoLOG INJ) 6 units TIDAC SQ Last administered on 11/30/16 11 :10; Start 11/20/16 at 08:00; Stop 11/30/16 at 15:15; Status DC Insulin Detemir (Levemir Inj) 35 units BID SQ Last administered on 11/30/16 10 :40; Start 11/20/16 at 21:00; Stop 11/30/16 at 15:16; Status DC Collagenase (Santyl Oint) 1 applic DAILY TOPICAL Last administered on 12/17/16 09:36; Start 11/23/16 at 12:45 Povidone Iodine (Betadine 10% Oint) 1 pkt DAILY TOPICAL ; Start 11/23/16 at 12: 45; Stop 11/23/16 at 18:32; Status DC Povidone Iodine (Betadine 10% Oint) 1 applic DAILY TOPICAL Last administered on 12/17/16 09:35; Start 11/23/16 at 18:32 Insulin Human Regular (NovoLIN R INJ) 10 units ONCE ONCE IV PUSH Last administered on 11/23/16 22:28; Start 11/23/16 at 20:45; Stop 11/23/16 at 20:46 ; Status DC Bupropion HCl 200 mg 200 mg BID PO Last administered on 11/29/16 09:11; Start 11/24/16 at 21:00; Stop 12/10/16 at 16:11; Status DC Lactated Ringer's 1,000 ml @ 30 mls/hr Q24H PRN IV SEE LABEL COMMENTS; Start at 08:30; Stop 11/28/16 at 08:31; Status DC Sodium Chloride (NS 500 ml Inj) 500 ml @ 30 mls/hr [id number] PRN IV SEE LABEL COMMENTS; Start 11/25/16 at 08:30; Stop 11/28/16 at 08:31; Status DC Metoprolol Tartrate (Lopressor) 25 mg BLACK OXIDE OPERATOR PRN PO SEE LABEL COMMENTS; Start 11/25/16 at 08:30; Stop 11/28/16 at 08:31; Status DC Povidone Iodine (Betadine 5% Antisepsis Kit) 1 applic BLACK OXIDE OPERATOR PRN EACH NARE SEE LABEL COMMENTS; Start 11/25/16 at 08:30; Stop 11/28/16 at 08:31; Status DC Chlorhexidine Gluconate (Chlorhexidine 2% Cloth) 3 pack BLACK OXIDE OPERATOR PRN TOPICAL SEE LABEL COMMENTS; Start 11/25/16 at 08:30; Stop 11/28/16 at 08:31; Status DC Insulin Human Regular (NovoLIN R INJ) See Protocol Table ... BLACK OXIDE OPERATOR PRN SQ SEE PROTOCOL TABLE; Start 11/25/16 at 08:30; Stop 11/28/16 at 08:31; Status DC Oxybutynin Chloride (Ditropan) 5 mg Q12HR PO Last administered on 12/14/16 09: 23; Start 11/28/16 at 14:00; Stop 12/14/16 at 13:31; Status DC Hydromorphone HCl (Dilaudid Pf Inj) 1.5 mg Q4H PRN IV PUSH breakthrough pain Last administered on 12/04/16 11:21; Start 11/29/16 at 14:15; Stop 12/04/16 at 11:36; Status DC Miscellaneous Medication (ASP Crit: Doc allergy to Penicillin/ Cephalosp) 1 UNSCH X1 PRN .XX PHARMACY DOCUMENTATION; Start 11/29/16 at 15:30; Stop at 15:29; Status DC Miscellaneous Medication 1 1 UNSCH X1 PRN XX PHARMACY DOCUMENTATION; Start at 15:30; Stop 11/30/16 at 15:29; Status DC Meropenem/Sodium Chloride (Merrem Inj/NS Inj) 100 ml @ 200 mls/hr Q8H IV Last administered on 12/01/16 09:21; Start 11/29/16 at 16:00; Stop 12/01/16 at 14:34 ; Status DC Miscellaneous Medication 1 1 UNSCH X1 PRN XX PHARMACY DOCUMENTATION; Start at 15:30; Stop 11/30/16 at 15:29; Status DC Linezolid 300 ml @ 300 mls/hr Q12H IV Last administered on 12/01/16 04:12; Start 11/29/16 at 16:00; Stop 12/01/16 at 14:34; Status DC Fluconazole/ Sodium Chloride (Diflucan 400 Mg Premix Bag) 200 ml @ 100 mls/hr Q24H IV Last administered on 11/30/16 18:42; Start 11/29/16 at 18:00; Stop at 14:34; Status DC Insulin Aspart (NovoLOG INJ) 12 units TIDAC SQ Last administered on 11/30/16 18:43; Start 11/30/16 at 17:00; Status Hold Insulin Detemir (Levemir Inj) 40 units BID SQ Last administered on 12/01/16 09 :23; Start 11/30/16 at 21:00; Stop 12/01/16 at 17:30; Status DC Midodrine (Proamatine) 10 mg Q8HR PO Last administered on 12/18/16 06:20; Start 11/30/16 at 21:00 Miscellaneous Medication (ASP Crit: Doc ESBL, MDR A baumannii or P aer) 1 UNSCH X1 PRN .XX PHARMACY DOCUMENTATION; Start 12/01/16 at 14:45; Stop 12/02/16 at 14 :44; Status DC Miscellaneous Medication 1 1 UNSCH X1 PRN XX PHARMACY DOCUMENTATION; Start at 14:45; Stop 12/02/16 at 14:44; Status DC Ertapenem/Sodium Chloride (INVanz INJ/NS Inj) 100 ml @ 200 mls/hr Q24H IV Last administered on 12/12/16 17:14; Start 12/01/16 at 16:00; Stop 12/13/16 at 09 :00; Status DC Insulin Detemir 20 units 20 units BID SQ Last administered on 12/16/16 21:05; Start 12/01/16 at 21:00; Stop 12/17/16 at 08:49; Status DC Sodium Chloride (NS 1000 ml Inj) 1,000 ml @ 1,000 mls/hr Q1H IV Last administered on 12/02/16 01:00; Start 12/02/16 at 00:00; Stop 12/02/16 at 01:59 ; Status DC Albumin Human (Albumin 5% Inj) 25 gm ONCE ONCE IV Last administered on 00:30; Start 12/02/16 at 00:00; Stop 12/02/16 at 00:07; Status DC Hydromorphone HCl (Dilaudid Pf Inj) 1 mg Q4H PRN IV PUSH breakthrough pain; Start 12/04/16 at 11:45; Stop 12/04/16 at 11:45; Status DC Hydromorphone HCl (Dilaudid Pf Inj) 1 mg Q4H PRN IV PUSH breakthrough pain Last administered on 12/06/16 12:22; Start 12/04/16 at 14:15; Stop 12/06/16 at 12:32; Status DC Oxycodone HCl (Roxicodone) 30 mg Q4H PRN PO PAIN SCALE 8 TO 10 Last administered on 12/17/16 21:43; Start 12/06/16 at 12:30 Bupropion HCl (Wellbutrin Sr) 150 mg DAILY PO Last administered on 12/17/16 09: 33; Start 12/10/16 at 16:15 Escitalopram Oxalate (Lexapro) 20 mg HS PO Last administered on 12/17/16 21:32 ; Start 12/10/16 at 21:00 Senna/Docusate Sodium (Erin-Colace) 1 tab BID PO Last administered on 12/17/16 21:33; Start 12/10/16 at 21:00 Zolpidem Tartrate (Ambien) 5 mg HS PRN PO INSOMNIA Last administered on 01:35; Start 12/10/16 at 21:00 Multi-Ingredient Ointment (Eucerin Cream) 1 applic ONCE ONCE TOPICAL Last administered on 12/11/16 00:54; Start 12/11/16 at 00:00; Stop 12/11/16 at 00:01 ; Status DC Diphenhydramine HCl (Benadryl 2% Cream) 1 applic TID PRN TOPICAL ITCHING Last administered on 12/11/16 16:09; Start 12/11/16 at 08:15 Trazodone HCl (Desyrel) 200 mg HS PO ; Start 12/11/16 at 21:00 Gabapentin (Neurontin) 300 mg TID PO Last administered on 12/17/16 17:27; Start 12/12/16 at 18:00 Oxybutynin Chloride (Ditropan) 5 mg Q8HR PO Last administered on 12/18/16 06:20 ; Start 12/14/16 at 14:00 Tolterodine Tartrate (Detrol La) 4 mg HS PO Last administered on 12/17/16 21:32 ; Start 12/14/16 at 21:00 Balanced Salt Solution (Bss Opth Soln) 15 applic STK-MED ONCE .ROUTE ; Start 12/15/16 at 08:04; Stop 12/15/16 at 08:05; Status DC Insulin Detemir (Levemir Inj) 20 units AC BREAKFAST SQ Last administered on 06:19; Start 12/18/16 at 07:00 Insulin Detemir (Levemir Inj) 22 units HS SQ Last administered on 5/6/17at 21: 33; Start 12/17/16 at 21:00 Date of Insertion: Nov 25, 2016 A/P Assessment and Plan A/P Neurogenic Bladder Sepsis- source likely UTI- ESBL hypotension-resolved Better BP readings- continue Midodrine S/P Tx for UTI - S/p Levaquin and Ertapenem S/P replacement of Kyle catheter by Dr. Meraz- 11/25. On Oxybutynin 5mg bid. urine cath leakage- urology was reconsulted; patient declined catheter exchange- no urological intervention at this time per urology- urine cath needs to be changed later this month. Blood cultures- negative x5 days Diabetes Mellitus: insulin requiring- - reinforced and encourage - Monitor Accu-Cheks, Continue sliding scale insulin.- - increased levemir to 20 units subq in am and 22 units subq qhs. -continue to monitor and adjust the regimen as needed. Chronic pain. Home medications baclofen, morphine, oxycodone. continue Oramorph. Insomnia: Home medications Ambien PRN & Trazadone 200 qHS Morbid obesity: Outpatient general surgery referral needed for possible surgical interventions Chronic pressure ulcers: Wound care team ff- however previously refused the wound care. Patient turning himself rigorously Sleep apnea, CPAP at night Anxiety and depression: no homicidal or suicidal ideations Was evaluated by psych in the ER, Felipe acted lifted, did not meet inpatient psychiatric and admission criteria. -Patient has long history of being on psychiatric medication, currently on Lexapro . Previously was on Sublette and did not do well with mood on this. -Psychiatry follow-up appreciated. Hyperlipidemia: Continue Lipitor Hypothyroidism: Continue levothyroxine chronic pain - on chronic pain meds- as noted above. Substance use: tox screen on admission significant for opiates, benzos, cannabinoids Full code. On Xarelto -DNR status palliative care following. Discharge Planning difficult discharge. case management notes reviewed. no accepting facility yet. Juan Diego Zambrano MD December 18, 2016 08:16
[2016-12-18] MEDS: SODIUM CHLORIDE 0.9% FLUSH 10 ML FLUSH IV FLUSH SCH ×2 (09:00→20:47)
[2016-12-18] MEDS: DOCUSATE SODIUM 50 MG/SENNA 8.6 MG TAB PO SCH ×2 (09:54→20:46)
[2016-12-18] MEDS: buPROPion HCL 150 MG SUSTAINED RELEASE TAB PO SCH (09:54)
[2016-12-18] MEDS: GABAPENTIN 300 MG CAP PO SCH ×3 (09:54→18:29)
[2016-12-18] MEDS: ASCORBIC ACID 500 MG TAB PO SCH ×2 (09:54→20:46)
[2016-12-18] MEDS: ATORVASTATIN 40 MG TAB PO SCH (09:54)
[2016-12-18] MEDS: FAMOTIDINE 20 MG TAB PO SCH (09:54)
[2016-12-18] MEDS: NYSTATIN 100,000 U/GM PWD 15 GM BTL TOPICAL SCH ×2 (09:55→20:48)
[2016-12-18] MEDS: POVIDONE IODINE 10% OINT 30 GM TUBE TOPICAL SCH (09:55)
[2016-12-18] MEDS: COLLAGENASE OINT 30 GM TUBE TOPICAL SCH (09:56)
[2016-12-18 12:00] VITALS: BP 94/56; PULSE 82; RESP 14; TEMP 97.1; O2SAT 98
[2016-12-18 16:00] VITALS: BP 115/80; PULSE 87; RESP 16; TEMP 97.5; O2SAT 98
[2016-12-18 20:00] VITALS: BP 93/46; PULSE 89; RESP 20; TEMP 97.2; O2SAT 91
[2016-12-18] MEDS: RIVAROXABAN 20 MG TAB PO SCH (20:46)
[2016-12-18] MEDS: traZODone HCL 100 MG TAB PO SCH ×2 (20:47)
[2016-12-18] MEDS: TOLTERODINE TARTRATE 4 MG CAP LA PO SCH (20:47)
[2016-12-18] MEDS: ESCITALOPRAM OXALATE 20 MG TAB PO SCH (20:47)
[2016-12-19] MEDS: ZOLPIDEM TARTRATE 5 MG TAB PO PRN (02:43)
[2016-12-19] MEDS: ALPRAZolam 1 MG TAB PO PRN ×3 (02:43→16:59)
[2016-12-19] MEDS: MORPHINE SULFATE 100 MG CONTROLLED RELEASE TAB PO SCH ×3 (02:44→17:03)
[2016-12-19] MEDS: MORPHINE SULFATE 30 MG CONTROLLED RELEASE TAB PO SCH ×3 (02:44→17:03)
[2016-12-19] MEDS: MIDODRINE 5 MG TAB PO SCH ×3 (04:02→22:08)
[2016-12-19] MEDS: BACLOFEN 20 MG TAB PO PRN ×3 (04:02→17:02)
[2016-12-19] MEDS: LEVOTHYROXINE SODIUM 50 MCG TAB PO SCH (04:03)
[2016-12-19] MEDS: OXYBUTYNIN CHLORIDE 5 MG TAB PO SCH ×3 (04:04→22:09)
[2016-12-19 05:06] LABS: AUTOMATED NEUTROPHIL # 7.9 TH/MM3 (1.8-7.7); BASOPHIL # 0.1 TH/MM3 (0-0.2); BASOPHIL % 0.8 % (0.0-2.0); EOSINOPHIL # 0.5 TH/MM3 (0-0.4); HEMATOCRIT 33.7 % (39.0-51.0); LYMPH % 19.9 % (9.0-44.0); LYMPHOCYTE # 2.3 TH/MM3 (1.0-4.8); MEAN CELL VOLUME 74.6 FL (80.0-100.0); MEAN CORPUSCULAR HEMOGLOBIN 22.6 PG (27.0-34.0); MEAN CORPUSCULAR HGB CONC 30.3 % (32.0-36.0); MONO % 6.7 % (0.0-8.0); NEUT % 68.6 % (16.0-70.0); PLATELET COUNT 231 TH/MM3 (150-450); RED BLOOD COUNT 4.52 MIL/MM3 (4.50-5.90); RED CELL DISTRIBUTION WIDTH 20.7 % (11.6-17.2); WHITE BLOOD COUNT 11.6 TH/MM3 (4.0-11.0)
[2016-12-19 05:19] LABS: HEMO FLAGS AUTO DIFF
[2016-12-19 05:29] LABS: POTASSIUM 3.9 MEQ/L (3.5-5.1)
[2016-12-19 06:05] VITALS: O2SAT 95
[2016-12-19] MEDS: INSULIN ASPART SUPPLEMENTAL SCALE SQ SCH ×4 (07:00→22:38)
[2016-12-19] MEDS: INSULIN DETEMIR 100 UNITS/ML VIAL SQ SCH ×2 (07:00→22:37)
[2016-12-19 08:01] LABS: SCAN/DIFF AUTO DIFF CONFIRMED
[2016-12-19] MEDS: COLLAGENASE OINT 30 GM TUBE TOPICAL SCH (09:00)
[2016-12-19] MEDS: buPROPion HCL 150 MG SUSTAINED RELEASE TAB PO SCH (09:35)
[2016-12-19] MEDS: GABAPENTIN 300 MG CAP PO SCH ×3 (09:35→16:59)
[2016-12-19] MEDS: FAMOTIDINE 20 MG TAB PO SCH (09:35)
--- NOTE | 2016-12-19 09:35 | HHI.PR ---
Subjective Remarks in no acute distress. has some constipation. d/w the RN and no other acute issues over night. Objective Vitals Vital Signs Date Time Temp Pulse Resp B/P Pulse Ox O2 Delivery O2 Flow Rate FiO2 12/19/16 06:05 Bi-Pap 12/18/16 20:00 97.2 89 20 93/46 91 12/18/16 16:00 97.5 87 16 115/80 98 12/18/16 12:00 97.1 82 14 94/56 98 I/O 12/18/16 12/18/16 12/18/16 12/19/16 12/19/16 12/19/16 06:59 14:59 22:59 06:59 14:59 22:59 Intake Total 2120 ml 360 ml 360 ml Output Total 4350 ml 4275 ml 725 ml Balance -2230 ml -3915 ml -365 ml Intake Oral 2120 ml 360 ml 360 ml Output Urine Total 4350 ml 4275 ml 725 ml # Bowel Movements 0 0 Result Diagram: 12/19/16 [id number] Objective Remarks GENERAL: morbidly obese, in no apparent distress. CARDIOVASCULAR: Regular rate and regular rhythm without murmurs, gallops, or rubs. RESPIRATORY: Clear to auscultation. Breath sounds equal bilaterally. No wheezes , rales, or rhonchi. GASTROINTESTINAL: Abdomen soft, non-tender, nondistended. Normal, active bowel sounds MUSCULOSKELETAL: Extremities without clubbing, cyanosis, or edema. NEURO: Alert & Oriented x4 to person, place, time, situation. Moves all ext x4 Procedures 11/25- S/P flexible cystoscopy with replacement of kyle catheter (Councill catheter) Medications and IVs Current Medications Insulin Human Regular (NovoLIN R INJ) 10 units ONCE ONCE SQ Last administered on 11/10/16 21:05; Start 11/10/16 at 16:00; Stop 11/10/16 at 16:01; Status DC Sodium Chloride (NS Flush) 2 ml UNSCH PRN IV FLUSH FLUSH AFTER USING IV ACCESS Last administered on 11/28/16 07:09; Start 11/10/16 at 21:45 Sodium Chloride (NS Flush) 2 ml BID IV FLUSH Last administered on 12/18/16 20: 47; Start 11/11/16 at 09:00 Naloxone HCl (Narcan Inj) 0.4 mg UNSCH PRN IV SEE LABEL COMMENTS; Start at 21:45 Albuterol Sulfate (Albuterol Neb) 2.5 mg Q6HR ALT NEB PRN NEB SHORTNESS OF BREATH; Start 11/11/16 at 02:00 Alprazolam (Xanax) 2 mg Q6HR PRN PO BELÉN Last administered on 12/19/16 02:43; Start 11/11/16 at 02:00 Ascorbic Acid (Vitamin C) 500 mg BID PO Last administered on 12/18/16 20:46; Start 11/11/16 at 09:00 Atorvastatin Calcium (Lipitor) 40 mg DAILY PO Last administered on 12/18/16 09: 54; Start 11/11/16 at 09:00 Baclofen (Lioresal) 20 mg Q6HR PRN PO MUSCLE SPASM Last administered on 04:02; Start 11/11/16 at 02:00 Bupropion HCl (Wellbutrin Xl 24 Hr) 150 mg DAILY PO ; Start 11/11/16 at 09:00; Status UNV Bupropion HCl (Wellbutrin Sr) 150 mg BID PO Last administered on 11/24/16 10: 23; Start 11/11/16 at 09:00; Stop 11/24/16 at 14:19; Status DC Chlorhexidine Gluconate (Peridex 0.12% Liq) 10 ml BID PRN SWISH-SPIT peridontitis; Start 11/11/16 at 02:00 Clotrimazole (Lotrimin 1% Cream) 1 applic DAILY PRN TOPICAL RASH IN SKIN FOLDS Last administered on 12/05/16 11:50; Start 11/11/16 at 02:00 Collagenase (Santyl Oint) 1 applic Q8HR TOPICAL Last administered on 11/23/16 12:12; Start 11/11/16 at 06:00; Stop 11/23/16 at 12:34; Status DC Escitalopram Oxalate (Lexapro) 20 mg HS PO Last administered on 11/13/16 21:18 ; Start 11/11/16 at 21:00; Stop 11/14/16 at 15:43; Status DC Furosemide (Lasix) 40 mg BID PO Last administered on 11/28/16 08:34; Start at 09:00; Status Hold Insulin Detemir (Levemir Inj) 55 units HS SQ Last administered on 11/19/16 21: 43; Start 11/11/16 at 21:00; Stop 11/19/16 at 22:31; Status DC Levothyroxine Sodium (Synthroid) 50 mcg DAILY@06 PO Last administered on 04:03; Start 11/11/16 at 06:00 Morphine Sulfate (Oramorph Sr) 30 mg Q8H PO Last administered on 12/19/16 02:44 ; Start 11/11/16 at 02:00 Morphine Sulfate (Oramorph Sr) 100 mg Q8H PO Last administered on 12/19/16 02: 44; Start 11/11/16 at 02:00 Potassium Chloride (KCl) 20 meq DAILY PO Last administered on 11/16/16 08:47; Start 11/11/16 at 09:00; Status Hold Promethazine HCl (Phenergan) 25 mg Q8HR PRN PO Nausea/Vomiting; Start 11/11/16 at 02:00 Famotidine (Pepcid) 20 mg DAILY PO Last administered on 12/18/16 09:54; Start 11/11/16 at 09:00 Rivaroxaban (Xarelto) 20 mg HS PO Last administered on 12/18/16 20:46; Start at 21:00 Simethicone (Mylicon Chew) 160 mg ACHS PRN CHEW GAS RETENTION Last administered on 12/13/16 20:57; Start 11/11/16 at 02:00 Trazodone HCl (Desyrel) 200 mg HS PO Last administered on 11/13/16 21:17; Start 11/11/16 at 21:00; Stop 11/14/16 at 10:19; Status DC Zolpidem Tartrate (Ambien) 10 mg HS PO Last administered on 12/09/16 22:44; Start 11/11/16 at 21:00; Stop 12/10/16 at 16:13; Status DC Tolterodine Tartrate (Detrol La) 2 mg HS PO Last administered on 12/13/16 20:57 ; Start 11/11/16 at 21:00; Stop 12/14/16 at 13:31; Status DC Oxycodone HCl (Roxicodone) 30 mg Q4H PRN PO PAIN Last administered on 09:01; Start 11/11/16 at 04:00; Stop 12/04/16 at 11:36; Status DC Hydromorphone HCl 0.5 mg 0.5 mg Q4H PRN IV PUSH breakthrough pain Last administered on 11/16/16 16:41; Start 11/11/16 at 02:15; Stop 11/16/16 at 22:41; Status DC Levofloxacin/ Dextrose (Levaquin 750 Mg Premix Inj) 150 ml @ 100 mls/hr Q24H IV Last administered on 11/14/16 03:44; Start 11/11/16 at 03:00; Stop 11/14/16 at 10:19; Status DC Bupropion HCl (Wellbutrin Sr 12 Hr) 150 mg DAILY PO ; Start 11/11/16 at 09:00; Status Cancel Bupropion HCl (Wellbutrin Sr) 150 mg DAILY PO Last administered on 11/11/16 12 :45; Start 11/11/16 at 09:00; Stop 11/12/16 at 07:22; Status DC Ondansetron HCl (Zofran Inj) 4 mg Q6HR PRN IV PUSH NAUSEA Last administered on 12/06/16 17:36; Start 11/11/16 at 03:15 Dextrose (D50w (Vial) Inj) 25 ml UNSCH PRN IV PUSH HYPOGLYCEMIA-SEE COMMENTS; Start 11/12/16 at 11:45 Glucagon (Glucagon Inj) 1 mg UNSCH PRN OTHER HYPOGLYCEMIA-SEE COMMENTS; Start 11/12/16 at 11:45 Insulin Aspart (NovoLOG SUPPLEMENTAL SCALE) 1 ACHS SLIDING SCALE SQ Last administered on 12/19/16 07:00; Start 11/12/16 at 16:00 Docusate Sodium (Colace) 100 mg BID PO Last administered on 12/09/16 22:45; Start 11/13/16 at 21:00; Stop 12/10/16 at 16:04; Status DC Magnesium Citrate (Citroma Liq) 600 ml Q24H PRN PO CONSTIPATION Last administered on 12/13/16 01:45; Start 11/13/16 at 14:45 Nystatin (Mycostatin Powder) 1 applic BID TOPICAL Last administered on 20:48; Start 11/13/16 at 21:00 Levofloxacin (Levaquin) 500 mg DAILY@11 PO Last administered on 11/21/16 10:53 ; Start 11/15/16 at 11:00; Stop 11/22/16 at 10:59; Status DC Trazodone HCl (Desyrel) 100 mg HS PO Last administered on 11/16/16 20:32; Start 11/14/16 at 21:00; Stop 11/16/16 at 22:40; Status DC Trazodone HCl (Desyrel) 200 mg HS PO Last administered on 12/18/16 20:47; Start 11/17/16 at 21:00 Hydromorphone HCl (Dilaudid Pf Inj) 1 mg Q4H PRN IV PUSH breakthrough pain Last administered on 11/29/16 10:31; Start 11/17/16 at 02:15; Stop 11/29/16 at 12:37; Status DC Trazodone HCl (Desyrel) 100 mg ONCE ONCE PO Last administered on 11/16/16 23: 54; Start 11/16/16 at 22:45; Stop 11/16/16 at 22:46; Status DC Acetaminophen (Tylenol) 650 mg Q4H PRN PO Headache, fever Last administered on 12/09/16 08:49; Start 11/18/16 at 17:30 Insulin Detemir (Levemir Inj) 30 units BID SQ Last administered on 11/20/16 09: 20; Start 11/20/16 at 09:00; Stop 11/20/16 at 11:16; Status DC Insulin Aspart (NovoLOG INJ) 6 units TIDAC SQ Last administered on 11/30/16 11 :10; Start 11/20/16 at 08:00; Stop 11/30/16 at 15:15; Status DC Insulin Detemir (Levemir Inj) 35 units BID SQ Last administered on 11/30/16 10 :40; Start 11/20/16 at 21:00; Stop 11/30/16 at 15:16; Status DC Collagenase (Santyl Oint) 1 applic DAILY TOPICAL Last administered on 12/18/16 09:56; Start 11/23/16 at 12:45 Povidone Iodine (Betadine 10% Oint) 1 pkt DAILY TOPICAL ; Start 11/23/16 at 12: 45; Stop 11/23/16 at 18:32; Status DC Povidone Iodine (Betadine 10% Oint) 1 applic DAILY TOPICAL Last administered on 12/18/16 09:55; Start 11/23/16 at 18:32 Insulin Human Regular (NovoLIN R INJ) 10 units ONCE ONCE IV PUSH Last administered on 11/23/16 22:28; Start 11/23/16 at 20:45; Stop 11/23/16 at 20:46 ; Status DC Bupropion HCl 200 mg 200 mg BID PO Last administered on 11/29/16 09:11; Start 11/24/16 at 21:00; Stop 12/10/16 at 16:11; Status DC Lactated Ringer's 1,000 ml @ 30 mls/hr Q24H PRN IV SEE LABEL COMMENTS; Start at 08:30; Stop 11/28/16 at 08:31; Status DC Sodium Chloride (NS 500 ml Inj) 500 ml @ 30 mls/hr [id number] PRN IV SEE LABEL COMMENTS; Start 11/25/16 at 08:30; Stop 11/28/16 at 08:31; Status DC Metoprolol Tartrate (Lopressor) 25 mg PARLIAMENTARY COUNSEL PRN PO SEE LABEL COMMENTS; Start 11/25/16 at 08:30; Stop 11/28/16 at 08:31; Status DC Povidone Iodine (Betadine 5% Antisepsis Kit) 1 applic PARLIAMENTARY COUNSEL PRN EACH NARE SEE LABEL COMMENTS; Start 11/25/16 at 08:30; Stop 11/28/16 at 08:31; Status DC Chlorhexidine Gluconate (Chlorhexidine 2% Cloth) 3 pack PARLIAMENTARY COUNSEL PRN TOPICAL SEE LABEL COMMENTS; Start 11/25/16 at 08:30; Stop 11/28/16 at 08:31; Status DC Insulin Human Regular (NovoLIN R INJ) See Protocol Table ... PARLIAMENTARY COUNSEL PRN SQ SEE PROTOCOL TABLE; Start 11/25/16 at 08:30; Stop 11/28/16 at 08:31; Status DC Oxybutynin Chloride (Ditropan) 5 mg Q12HR PO Last administered on 12/14/16 09: 23; Start 11/28/16 at 14:00; Stop 12/14/16 at 13:31; Status DC Hydromorphone HCl (Dilaudid Pf Inj) 1.5 mg Q4H PRN IV PUSH breakthrough pain Last administered on 12/04/16 11:21; Start 11/29/16 at 14:15; Stop 12/04/16 at 11:36; Status DC Miscellaneous Medication (ASP Crit: Doc allergy to Penicillin/ Cephalosp) 1 UNSCH X1 PRN .XX PHARMACY DOCUMENTATION; Start 11/29/16 at 15:30; Stop at 15:29; Status DC Miscellaneous Medication 1 1 UNSCH X1 PRN XX PHARMACY DOCUMENTATION; Start at 15:30; Stop 11/30/16 at 15:29; Status DC Meropenem/Sodium Chloride (Merrem Inj/NS Inj) 100 ml @ 200 mls/hr Q8H IV Last administered on 12/01/16 09:21; Start 11/29/16 at 16:00; Stop 12/01/16 at 14:34 ; Status DC Miscellaneous Medication 1 1 UNSCH X1 PRN XX PHARMACY DOCUMENTATION; Start at 15:30; Stop 11/30/16 at 15:29; Status DC Linezolid 300 ml @ 300 mls/hr Q12H IV Last administered on 12/01/16 04:12; Start 11/29/16 at 16:00; Stop 12/01/16 at 14:34; Status DC Fluconazole/ Sodium Chloride (Diflucan 400 Mg Premix Bag) 200 ml @ 100 mls/hr Q24H IV Last administered on 11/30/16 18:42; Start 11/29/16 at 18:00; Stop at 14:34; Status DC Insulin Aspart (NovoLOG INJ) 12 units TIDAC SQ Last administered on 11/30/16 18:43; Start 11/30/16 at 17:00; Status Hold Insulin Detemir (Levemir Inj) 40 units BID SQ Last administered on 12/01/16 09 :23; Start 11/30/16 at 21:00; Stop 12/01/16 at 17:30; Status DC Midodrine (Proamatine) 10 mg Q8HR PO Last administered on 12/19/16 04:02; Start 11/30/16 at 21:00 Miscellaneous Medication (ASP Crit: Doc ESBL, MDR A baumannii or P aer) 1 UNSCH X1 PRN .XX PHARMACY DOCUMENTATION; Start 12/01/16 at 14:45; Stop 12/02/16 at 14 :44; Status DC Miscellaneous Medication 1 1 UNSCH X1 PRN XX PHARMACY DOCUMENTATION; Start at 14:45; Stop 12/02/16 at 14:44; Status DC Ertapenem/Sodium Chloride (INVanz INJ/NS Inj) 100 ml @ 200 mls/hr Q24H IV Last administered on 12/12/16 17:14; Start 12/01/16 at 16:00; Stop 12/13/16 at 09 :00; Status DC Insulin Detemir 20 units 20 units BID SQ Last administered on 12/16/16 21:05; Start 12/01/16 at 21:00; Stop 12/17/16 at 08:49; Status DC Sodium Chloride (NS 1000 ml Inj) 1,000 ml @ 1,000 mls/hr Q1H IV Last administered on 12/02/16 01:00; Start 12/02/16 at 00:00; Stop 12/02/16 at 01:59 ; Status DC Albumin Human (Albumin 5% Inj) 25 gm ONCE ONCE IV Last administered on 00:30; Start 12/02/16 at 00:00; Stop 12/02/16 at 00:07; Status DC Hydromorphone HCl (Dilaudid Pf Inj) 1 mg Q4H PRN IV PUSH breakthrough pain; Start 12/04/16 at 11:45; Stop 12/04/16 at 11:45; Status DC Hydromorphone HCl (Dilaudid Pf Inj) 1 mg Q4H PRN IV PUSH breakthrough pain Last administered on 12/06/16 12:22; Start 12/04/16 at 14:15; Stop 12/06/16 at 12:32; Status DC Oxycodone HCl (Roxicodone) 30 mg Q4H PRN PO PAIN SCALE 8 TO 10 Last administered on 12/19/16 04:02; Start 12/06/16 at 12:30 Bupropion HCl (Wellbutrin Sr) 150 mg DAILY PO Last administered on 12/18/16 09: 54; Start 12/10/16 at 16:15 Escitalopram Oxalate (Lexapro) 20 mg HS PO Last administered on 12/18/16 20:47 ; Start 12/10/16 at 21:00 Senna/Docusate Sodium (Erin-Colace) 1 tab BID PO Last administered on 12/18/16 20:46; Start 12/10/16 at 21:00 Zolpidem Tartrate (Ambien) 5 mg HS PRN PO INSOMNIA Last administered on 02:43; Start 12/10/16 at 21:00 Multi-Ingredient Ointment (Eucerin Cream) 1 applic ONCE ONCE TOPICAL Last administered on 12/11/16 00:54; Start 12/11/16 at 00:00; Stop 12/11/16 at 00:01 ; Status DC Diphenhydramine HCl (Benadryl 2% Cream) 1 applic TID PRN TOPICAL ITCHING Last administered on 12/11/16 16:09; Start 12/11/16 at 08:15 Trazodone HCl (Desyrel) 200 mg HS PO ; Start 12/11/16 at 21:00 Gabapentin (Neurontin) 300 mg TID PO Last administered on 12/18/16 18:29; Start 12/12/16 at 18:00 Oxybutynin Chloride (Ditropan) 5 mg Q8HR PO Last administered on 12/19/16 04:04 ; Start 12/14/16 at 14:00 Tolterodine Tartrate (Detrol La) 4 mg HS PO Last administered on 12/18/16 20:47 ; Start 12/14/16 at 21:00 Balanced Salt Solution (Bss Opth Soln) 15 applic STK-MED ONCE .ROUTE ; Start 12/15/16 at 08:04; Stop 12/15/16 at 08:05; Status DC Insulin Detemir (Levemir Inj) 20 units AC BREAKFAST SQ Last administered on 07:00; Start 12/18/16 at 07:00 Insulin Detemir (Levemir Inj) 22 units HS SQ Last administered on 5/7/17at 20: 46; Start 12/17/16 at 21:00 Date of Insertion: Nov 25, 2016 A/P Assessment and Plan A/P Neurogenic Bladder Sepsis- source likely UTI- ESBL hypotension-resolved Better BP readings- continue Midodrine S/P Tx for UTI - S/p Levaquin and Ertapenem S/P replacement of Kyle catheter by Dr. Meraz- 11/25. On Oxybutynin 5mg bid. urine cath leakage- urology was reconsulted; patient declined catheter exchange- no urological intervention at this time per urology- urine cath needs to be changed later this month. Blood cultures- negative x5 days Diabetes Mellitus: insulin requiring- - reinforced and encourage - Monitor Accu-Cheks, Continue sliding scale insulin.- - increase levemir to 22 units subq in am and 22 units subq qhs. -continue to monitor and adjust the regimen as needed. Chronic pain. Home medications baclofen, morphine, oxycodone. continue Oramorph. Insomnia: Home medications Ambien PRN & Trazadone 200 qHS Morbid obesity: Outpatient general surgery referral needed for possible surgical interventions Chronic pressure ulcers: Wound care team ff- however previously refused the wound care. Patient turning himself rigorously Sleep apnea, CPAP at night Anxiety and depression: no homicidal or suicidal ideations Was evaluated by psych in the ER, Felipe acted lifted, did not meet inpatient psychiatric and admission criteria. -Patient has long history of being on psychiatric medication, currently on Lexapro . Previously was on [place] and did not do well with mood on this. -Psychiatry follow-up appreciated. Hyperlipidemia: Continue Lipitor Hypothyroidism: Continue levothyroxine chronic pain - on chronic pain meds- as noted above. Substance use: tox screen on admission significant for opiates, benzos, cannabinoids constipation; laxatives as needed. Full code. On Xarelto -DNR status palliative care following. Discharge Planning difficult discharge. case management notes reviewed. no accepting facility yet. Juan Diego Zambrano MD December 19, 2016 09:35
[2016-12-19] MEDS: DOCUSATE SODIUM 50 MG/SENNA 8.6 MG TAB PO SCH ×2 (09:36→21:54)
[2016-12-19] MEDS: ASCORBIC ACID 500 MG TAB PO SCH ×2 (09:36→21:54)
[2016-12-19] MEDS: SODIUM CHLORIDE 0.9% FLUSH 10 ML FLUSH IV FLUSH SCH ×2 (09:36→21:53)
[2016-12-19] MEDS: ATORVASTATIN 40 MG TAB PO SCH (09:36)
[2016-12-19] MEDS: NYSTATIN 100,000 U/GM PWD 15 GM BTL TOPICAL SCH ×2 (09:39→21:00)
[2016-12-19] MEDS: POVIDONE IODINE 10% OINT 30 GM TUBE TOPICAL SCH (09:40)
[2016-12-19] MEDS ORDERED: LACTULOSE SYRUP 20 GM/30 ML CUP PO ONE (09:45)
[2016-12-19] MEDS: MAGNESIUM CITRATE SOLN 300 ML BTL PO PRN (09:52)
[2016-12-19] MEDS: POLYETHYLENE GLYCOL 17 GM PKG PO PRN (09:52)
[2016-12-19 12:00] VITALS: BP 117/56; PULSE 92; RESP 16; TEMP 97; O2SAT 97
[2016-12-19 16:00] VITALS: BP 130/86; PULSE 88; RESP 20; TEMP 98; O2SAT 95
[2016-12-19 20:00] VITALS: BP 112/71; PULSE 82; RESP 18; TEMP 97.4; O2SAT 95
[2016-12-19] MEDS: traZODone HCL 100 MG TAB PO SCH ×2 (21:00→21:54)
[2016-12-19] MEDS: ESCITALOPRAM OXALATE 20 MG TAB PO SCH (21:54)
[2016-12-19] MEDS: RIVAROXABAN 20 MG TAB PO SCH (21:54)
[2016-12-19] MEDS: TOLTERODINE TARTRATE 4 MG CAP LA PO SCH (21:55)
[2016-12-20] VITALS: BP 117/64; PULSE 101; RESP 20; TEMP 96.8; O2SAT 94
[2016-12-20] MEDS: BACLOFEN 20 MG TAB PO PRN ×3 (02:19→21:36)
[2016-12-20] MEDS: MORPHINE SULFATE 100 MG CONTROLLED RELEASE TAB PO SCH ×3 (02:19→17:53)
[2016-12-20] MEDS: ZOLPIDEM TARTRATE 5 MG TAB PO PRN (02:19)
[2016-12-20] MEDS: ALPRAZolam 1 MG TAB PO PRN ×2 (02:19→13:03)
[2016-12-20] MEDS: MORPHINE SULFATE 30 MG CONTROLLED RELEASE TAB PO SCH ×3 (02:19→17:53)
[2016-12-20] MEDS: MIDODRINE 5 MG TAB PO SCH ×3 (06:21→21:34)
[2016-12-20] MEDS: LEVOTHYROXINE SODIUM 50 MCG TAB PO SCH (06:21)
[2016-12-20] MEDS: OXYBUTYNIN CHLORIDE 5 MG TAB PO SCH ×3 (06:21→21:34)
[2016-12-20] MEDS: INSULIN ASPART SUPPLEMENTAL SCALE SQ SCH ×4 (06:32→23:18)
[2016-12-20] MEDS: INSULIN DETEMIR 100 UNITS/ML VIAL SQ SCH ×2 (06:32→21:00)
[2016-12-20 08:00] VITALS: BP 105/46; PULSE 96; RESP 17; TEMP 98.2; O2SAT 92
[2016-12-20] MEDS: COLLAGENASE OINT 30 GM TUBE TOPICAL SCH (09:00)
[2016-12-20] MEDS: DOCUSATE SODIUM 50 MG/SENNA 8.6 MG TAB PO SCH ×2 (09:44→21:34)
[2016-12-20] MEDS: ASCORBIC ACID 500 MG TAB PO SCH ×2 (09:44→21:34)
[2016-12-20] MEDS: ATORVASTATIN 40 MG TAB PO SCH (09:44)
[2016-12-20] MEDS: buPROPion HCL 150 MG SUSTAINED RELEASE TAB PO SCH (09:44)
[2016-12-20] MEDS: GABAPENTIN 300 MG CAP PO SCH ×3 (09:44→17:52)
[2016-12-20] MEDS: FAMOTIDINE 20 MG TAB PO SCH (09:44)
[2016-12-20] MEDS: NYSTATIN 100,000 U/GM PWD 15 GM BTL TOPICAL SCH ×2 (09:46→21:00)
[2016-12-20] MEDS: SODIUM CHLORIDE 0.9% FLUSH 10 ML FLUSH IV FLUSH SCH ×2 (09:46→21:00)
[2016-12-20] MEDS: POVIDONE IODINE 10% OINT 30 GM TUBE TOPICAL SCH (09:47)
--- NOTE | 2016-12-20 11:38 | HHI.PR ---
Subjective Remarks in no acute distress. blood sugar readings sill high. d/w the RN and no acute issues over night. Objective Vitals Vital Signs Date Time Temp Pulse Resp B/P Pulse Ox O2 Delivery O2 Flow Rate FiO2 12/20/16 09:51 Bi-Pap 12/20/16 08:00 98.2 96 17 105/46 92 12/20/16 00:00 96.8 101 20 117/64 94 12/19/16 20:00 97.4 82 18 112/71 95 12/19/16 16:00 98.0 88 20 130/86 95 12/19/16 12:00 97.0 92 16 117/56 97 I/O 12/19/16 12/19/16 12/19/16 12/20/16 12/20/16 12/20/16 07:00 15:00 23:00 07:00 15:00 23:00 Intake Total 360 ml 1600 ml 620 ml 960 ml Output Total 725 ml 3200 ml 450 ml 2000 ml Balance -365 ml -1600 ml 170 ml -1040 ml Intake Oral 360 ml 1600 ml 620 ml 960 ml Output Urine Total 725 ml 3200 ml 450 ml 2000 ml # Bowel Movements 0 0 0 Result Diagram: 12/19/16 0418 12/19/16 0418 Objective Remarks GENERAL: morbidly obese, in no apparent distress. CARDIOVASCULAR: Regular rate and regular rhythm without murmurs, gallops, or rubs. RESPIRATORY: Clear to auscultation. Breath sounds equal bilaterally. No wheezes , rales, or rhonchi. GASTROINTESTINAL: Abdomen soft, non-tender, nondistended. Normal, active bowel sounds MUSCULOSKELETAL: Extremities without clubbing, cyanosis, or edema. NEURO: Alert & Oriented x4 to person, place, time, situation. Moves all ext x4 Procedures 11/25- S/P flexible cystoscopy with replacement of kyle catheter (Councill catheter) Medications and IVs Current Medications Insulin Human Regular (NovoLIN R INJ) 10 units ONCE ONCE SQ Last administered on 11/10/16 21:05; Start 11/10/16 at 16:00; Stop 11/10/16 at 16:01; Status DC Sodium Chloride (NS Flush) 2 ml UNSCH PRN IV FLUSH FLUSH AFTER USING IV ACCESS Last administered on 11/28/16 07:09; Start 11/10/16 at 21:45 Sodium Chloride (NS Flush) 2 ml BID IV FLUSH Last administered on 12/20/16 09: 46; Start 11/11/16 at 09:00 Naloxone HCl (Narcan Inj) 0.4 mg UNSCH PRN IV SEE LABEL COMMENTS; Start at 21:45 Albuterol Sulfate (Albuterol Neb) 2.5 mg Q6HR ALT NEB PRN NEB SHORTNESS OF BREATH; Start 11/11/16 at 02:00 Alprazolam (Xanax) 2 mg Q6HR PRN PO BELÉN Last administered on 12/20/16 02:19; Start 11/11/16 at 02:00 Ascorbic Acid (Vitamin C) 500 mg BID PO Last administered on 12/20/16 09:44; Start 11/11/16 at 09:00 Atorvastatin Calcium (Lipitor) 40 mg DAILY PO Last administered on 12/20/16 09: 44; Start 11/11/16 at 09:00 Baclofen (Lioresal) 20 mg Q6HR PRN PO MUSCLE SPASM Last administered on 02:19; Start 11/11/16 at 02:00 Bupropion HCl (Wellbutrin Xl 24 Hr) 150 mg DAILY PO ; Start 11/11/16 at 09:00; Status UNV Bupropion HCl (Wellbutrin Sr) 150 mg BID PO Last administered on 11/24/16 10: 23; Start 11/11/16 at 09:00; Stop 11/24/16 at 14:19; Status DC Chlorhexidine Gluconate (Peridex 0.12% Liq) 10 ml BID PRN SWISH-SPIT peridontitis; Start 11/11/16 at 02:00 Clotrimazole (Lotrimin 1% Cream) 1 applic DAILY PRN TOPICAL RASH IN SKIN FOLDS Last administered on 12/05/16 11:50; Start 11/11/16 at 02:00 Collagenase (Santyl Oint) 1 applic Q8HR TOPICAL Last administered on 11/23/16 12:12; Start 11/11/16 at 06:00; Stop 11/23/16 at 12:34; Status DC Escitalopram Oxalate (Lexapro) 20 mg HS PO Last administered on 11/13/16 21:18 ; Start 11/11/16 at 21:00; Stop 11/14/16 at 15:43; Status DC Furosemide (Lasix) 40 mg BID PO Last administered on 11/28/16 08:34; Start at 09:00; Status Hold Insulin Detemir (Levemir Inj) 55 units HS SQ Last administered on 11/19/16 21: 43; Start 11/11/16 at 21:00; Stop 11/19/16 at 22:31; Status DC Levothyroxine Sodium (Synthroid) 50 mcg DAILY@06 PO Last administered on 06:21; Start 11/11/16 at 06:00 Morphine Sulfate (Oramorph Sr) 30 mg Q8H PO Last administered on 12/20/16 09:44 ; Start 11/11/16 at 02:00 Morphine Sulfate (Oramorph Sr) 100 mg Q8H PO Last administered on 12/20/16 09: 45; Start 11/11/16 at 02:00 Potassium Chloride (KCl) 20 meq DAILY PO Last administered on 11/16/16 08:47; Start 11/11/16 at 09:00; Status Hold Promethazine HCl (Phenergan) 25 mg Q8HR PRN PO Nausea/Vomiting; Start 11/11/16 at 02:00 Famotidine (Pepcid) 20 mg DAILY PO Last administered on 12/20/16 09:44; Start 11/11/16 at 09:00 Rivaroxaban (Xarelto) 20 mg HS PO Last administered on 12/19/16 21:54; Start at 21:00 Simethicone (Mylicon Chew) 160 mg ACHS PRN CHEW GAS RETENTION Last administered on 12/13/16 20:57; Start 11/11/16 at 02:00 Trazodone HCl (Desyrel) 200 mg HS PO Last administered on 11/13/16 21:17; Start 11/11/16 at 21:00; Stop 11/14/16 at 10:19; Status DC Zolpidem Tartrate (Ambien) 10 mg HS PO Last administered on 12/09/16 22:44; Start 11/11/16 at 21:00; Stop 12/10/16 at 16:13; Status DC Tolterodine Tartrate (Detrol La) 2 mg HS PO Last administered on 12/13/16 20:57 ; Start 11/11/16 at 21:00; Stop 12/14/16 at 13:31; Status DC Oxycodone HCl (Roxicodone) 30 mg Q4H PRN PO PAIN Last administered on 09:01; Start 11/11/16 at 04:00; Stop 12/04/16 at 11:36; Status DC Hydromorphone HCl 0.5 mg 0.5 mg Q4H PRN IV PUSH breakthrough pain Last administered on 11/16/16 16:41; Start 11/11/16 at 02:15; Stop 11/16/16 at 22:41; Status DC Levofloxacin/ Dextrose (Levaquin 750 Mg Premix Inj) 150 ml @ 100 mls/hr Q24H IV Last administered on 11/14/16 03:44; Start 11/11/16 at 03:00; Stop 11/14/16 at 10:19; Status DC Bupropion HCl (Wellbutrin Sr 12 Hr) 150 mg DAILY PO ; Start 11/11/16 at 09:00; Status Cancel Bupropion HCl (Wellbutrin Sr) 150 mg DAILY PO Last administered on 11/11/16 12 :45; Start 11/11/16 at 09:00; Stop 11/12/16 at 07:22; Status DC Ondansetron HCl (Zofran Inj) 4 mg Q6HR PRN IV PUSH NAUSEA Last administered on 12/06/16 17:36; Start 11/11/16 at 03:15 Dextrose (D50w (Vial) Inj) 25 ml UNSCH PRN IV PUSH HYPOGLYCEMIA-SEE COMMENTS; Start 11/12/16 at 11:45 Glucagon (Glucagon Inj) 1 mg UNSCH PRN OTHER HYPOGLYCEMIA-SEE COMMENTS; Start 11/12/16 at 11:45 Insulin Aspart (NovoLOG SUPPLEMENTAL SCALE) 1 ACHS SLIDING SCALE SQ Last administered on 12/20/16 06:32; Start 11/12/16 at 16:00 Docusate Sodium (Colace) 100 mg BID PO Last administered on 12/09/16 22:45; Start 11/13/16 at 21:00; Stop 12/10/16 at 16:04; Status DC Magnesium Citrate (Citroma Liq) 600 ml Q24H PRN PO CONSTIPATION Last administered on 12/19/16 09:52; Start 11/13/16 at 14:45 Nystatin (Mycostatin Powder) 1 applic BID TOPICAL Last administered on 09:46; Start 11/13/16 at 21:00 Levofloxacin (Levaquin) 500 mg DAILY@11 PO Last administered on 11/21/16 10:53 ; Start 11/15/16 at 11:00; Stop 11/22/16 at 10:59; Status DC Trazodone HCl (Desyrel) 100 mg HS PO Last administered on 11/16/16 20:32; Start 11/14/16 at 21:00; Stop 11/16/16 at 22:40; Status DC Trazodone HCl (Desyrel) 200 mg HS PO Last administered on 12/19/16 21:54; Start 11/17/16 at 21:00 Hydromorphone HCl (Dilaudid Pf Inj) 1 mg Q4H PRN IV PUSH breakthrough pain Last administered on 11/29/16 10:31; Start 11/17/16 at 02:15; Stop 11/29/16 at 12:37; Status DC Trazodone HCl (Desyrel) 100 mg ONCE ONCE PO Last administered on 11/16/16 23: 54; Start 11/16/16 at 22:45; Stop 11/16/16 at 22:46; Status DC Acetaminophen (Tylenol) 650 mg Q4H PRN PO Headache, fever Last administered on 12/09/16 08:49; Start 11/18/16 at 17:30 Insulin Detemir (Levemir Inj) 30 units BID SQ Last administered on 11/20/16 09: 20; Start 11/20/16 at 09:00; Stop 11/20/16 at 11:16; Status DC Insulin Aspart (NovoLOG INJ) 6 units TIDAC SQ Last administered on 11/30/16 11 :10; Start 11/20/16 at 08:00; Stop 11/30/16 at 15:15; Status DC Insulin Detemir (Levemir Inj) 35 units BID SQ Last administered on 11/30/16 10 :40; Start 11/20/16 at 21:00; Stop 11/30/16 at 15:16; Status DC Collagenase (Santyl Oint) 1 applic DAILY TOPICAL Last administered on 12/20/16 09:00; Start 11/23/16 at 12:45 Povidone Iodine (Betadine 10% Oint) 1 pkt DAILY TOPICAL ; Start 11/23/16 at 12: 45; Stop 11/23/16 at 18:32; Status DC Povidone Iodine (Betadine 10% Oint) 1 applic DAILY TOPICAL Last administered on 12/20/16 09:47; Start 11/23/16 at 18:32 Insulin Human Regular (NovoLIN R INJ) 10 units ONCE ONCE IV PUSH Last administered on 11/23/16 22:28; Start 11/23/16 at 20:45; Stop 11/23/16 at 20:46 ; Status DC Bupropion HCl 200 mg 200 mg BID PO Last administered on 11/29/16 09:11; Start 11/24/16 at 21:00; Stop 12/10/16 at 16:11; Status DC Lactated Ringer's 1,000 ml @ 30 mls/hr Q24H PRN IV SEE LABEL COMMENTS; Start at 08:30; Stop 11/28/16 at 08:31; Status DC Sodium Chloride (NS 500 ml Inj) 500 ml @ 30 mls/hr [id number] PRN IV SEE LABEL COMMENTS; Start 11/25/16 at 08:30; Stop 11/28/16 at 08:31; Status DC Metoprolol Tartrate (Lopressor) 25 mg PRISON LIBRARIAN PRN PO SEE LABEL COMMENTS; Start 11/25/16 at 08:30; Stop 11/28/16 at 08:31; Status DC Povidone Iodine (Betadine 5% Antisepsis Kit) 1 applic PRISON LIBRARIAN PRN EACH NARE SEE LABEL COMMENTS; Start 11/25/16 at 08:30; Stop 11/28/16 at 08:31; Status DC Chlorhexidine Gluconate (Chlorhexidine 2% Cloth) 3 pack PRISON LIBRARIAN PRN TOPICAL SEE LABEL COMMENTS; Start 11/25/16 at 08:30; Stop 11/28/16 at 08:31; Status DC Insulin Human Regular (NovoLIN R INJ) See Protocol Table ... PRISON LIBRARIAN PRN SQ SEE PROTOCOL TABLE; Start 11/25/16 at 08:30; Stop 11/28/16 at 08:31; Status DC Oxybutynin Chloride (Ditropan) 5 mg Q12HR PO Last administered on 12/14/16 09: 23; Start 11/28/16 at 14:00; Stop 12/14/16 at 13:31; Status DC Hydromorphone HCl (Dilaudid Pf Inj) 1.5 mg Q4H PRN IV PUSH breakthrough pain Last administered on 12/04/16 11:21; Start 11/29/16 at 14:15; Stop 12/04/16 at 11:36; Status DC Miscellaneous Medication (ASP Crit: Doc allergy to Penicillin/ Cephalosp) 1 UNSCH X1 PRN .XX PHARMACY DOCUMENTATION; Start 11/29/16 at 15:30; Stop at 15:29; Status DC Miscellaneous Medication 1 1 UNSCH X1 PRN XX PHARMACY DOCUMENTATION; Start at 15:30; Stop 11/30/16 at 15:29; Status DC Meropenem/Sodium Chloride (Merrem Inj/NS Inj) 100 ml @ 200 mls/hr Q8H IV Last administered on 12/01/16 09:21; Start 11/29/16 at 16:00; Stop 12/01/16 at 14:34 ; Status DC Miscellaneous Medication 1 1 UNSCH X1 PRN XX PHARMACY DOCUMENTATION; Start at 15:30; Stop 11/30/16 at 15:29; Status DC Linezolid 300 ml @ 300 mls/hr Q12H IV Last administered on 12/01/16 04:12; Start 11/29/16 at 16:00; Stop 12/01/16 at 14:34; Status DC Fluconazole/ Sodium Chloride (Diflucan 400 Mg Premix Bag) 200 ml @ 100 mls/hr Q24H IV Last administered on 11/30/16 18:42; Start 11/29/16 at 18:00; Stop at 14:34; Status DC Insulin Aspart (NovoLOG INJ) 12 units TIDAC SQ Last administered on 11/30/16 18:43; Start 11/30/16 at 17:00; Status Hold Insulin Detemir (Levemir Inj) 40 units BID SQ Last administered on 12/01/16 09 :23; Start 11/30/16 at 21:00; Stop 12/01/16 at 17:30; Status DC Midodrine (Proamatine) 10 mg Q8HR PO Last administered on 12/20/16 06:21; Start 11/30/16 at 21:00 Miscellaneous Medication (ASP Crit: Doc ESBL, MDR A baumannii or P aer) 1 UNSCH X1 PRN .XX PHARMACY DOCUMENTATION; Start 12/01/16 at 14:45; Stop 12/02/16 at 14 :44; Status DC Miscellaneous Medication 1 1 UNSCH X1 PRN XX PHARMACY DOCUMENTATION; Start at 14:45; Stop 12/02/16 at 14:44; Status DC Ertapenem/Sodium Chloride (INVanz INJ/NS Inj) 100 ml @ 200 mls/hr Q24H IV Last administered on 12/12/16 17:14; Start 12/01/16 at 16:00; Stop 12/13/16 at 09 :00; Status DC Insulin Detemir 20 units 20 units BID SQ Last administered on 12/16/16 21:05; Start 12/01/16 at 21:00; Stop 12/17/16 at 08:49; Status DC Sodium Chloride (NS 1000 ml Inj) 1,000 ml @ 1,000 mls/hr Q1H IV Last administered on 12/02/16 01:00; Start 12/02/16 at 00:00; Stop 12/02/16 at 01:59 ; Status DC Albumin Human (Albumin 5% Inj) 25 gm ONCE ONCE IV Last administered on 00:30; Start 12/02/16 at 00:00; Stop 12/02/16 at 00:07; Status DC Hydromorphone HCl (Dilaudid Pf Inj) 1 mg Q4H PRN IV PUSH breakthrough pain; Start 12/04/16 at 11:45; Stop 12/04/16 at 11:45; Status DC Hydromorphone HCl (Dilaudid Pf Inj) 1 mg Q4H PRN IV PUSH breakthrough pain Last administered on 12/06/16 12:22; Start 12/04/16 at 14:15; Stop 12/06/16 at 12:32; Status DC Oxycodone HCl (Roxicodone) 30 mg Q4H PRN PO PAIN SCALE 8 TO 10 Last administered on 12/20/16 02:55; Start 12/06/16 at 12:30 Bupropion HCl (Wellbutrin Sr) 150 mg DAILY PO Last administered on 12/20/16 09: 44; Start 12/10/16 at 16:15 Escitalopram Oxalate (Lexapro) 20 mg HS PO Last administered on 12/19/16 21:54 ; Start 12/10/16 at 21:00 Senna/Docusate Sodium (Erin-Colace) 1 tab BID PO Last administered on 12/20/16 09:44; Start 12/10/16 at 21:00 Zolpidem Tartrate (Ambien) 5 mg HS PRN PO INSOMNIA Last administered on 02:19; Start 12/10/16 at 21:00 Multi-Ingredient Ointment (Eucerin Cream) 1 applic ONCE ONCE TOPICAL Last administered on 12/11/16 00:54; Start 12/11/16 at 00:00; Stop 12/11/16 at 00:01 ; Status DC Diphenhydramine HCl (Benadryl 2% Cream) 1 applic TID PRN TOPICAL ITCHING Last administered on 12/11/16 16:09; Start 12/11/16 at 08:15 Trazodone HCl (Desyrel) 200 mg HS PO ; Start 12/11/16 at 21:00 Gabapentin (Neurontin) 300 mg TID PO Last administered on 12/20/16 09:44; Start 12/12/16 at 18:00 Oxybutynin Chloride (Ditropan) 5 mg Q8HR PO Last administered on 12/20/16 06:21 ; Start 12/14/16 at 14:00 Tolterodine Tartrate (Detrol La) 4 mg HS PO Last administered on 12/19/16 21:55 ; Start 12/14/16 at 21:00 Balanced Salt Solution (Bss Opth Soln) 15 applic STK-MED ONCE .ROUTE ; Start 12/15/16 at 08:04; Stop 12/15/16 at 08:05; Status DC Insulin Detemir (Levemir Inj) 20 units AC BREAKFAST SQ Last administered on 07:00; Start 12/18/16 at 07:00; Stop 12/19/16 at 09:36; Status DC Insulin Detemir (Levemir Inj) 22 units HS SQ Last administered on 12/19/16 22: 37; Start 12/17/16 at 21:00 Polyethylene Glycol (Miralax) 17 gm DAILY PRN PO CONSTIPATION Last administered on 12/19/16 09:52; Start 12/19/16 at 09:45 Lactulose (Lactulose Liq) 30 ml ONCE ONCE PO Last administered on 12/19/16 09: 52; Start 12/19/16 at 09:45; Stop 12/19/16 at 09:46; Status DC Insulin Detemir (Levemir Inj) 22 units AC BREAKFAST SQ Last administered on 06:32; Start 12/20/16 at 07:00 Date of Insertion: Nov 25, 2016 A/P Assessment and Plan A/P Neurogenic Bladder Sepsis- source likely UTI- ESBL hypotension-resolved Better BP readings- continue Midodrine S/P Tx for UTI - S/p Levaquin and Ertapenem S/P replacement of Kyle catheter by Dr. Meraz- 11/25. On Oxybutynin 5mg bid. urine cath leakage- urology was reconsulted; patient declined catheter exchange- no urological intervention at this time per urology- urine cath needs to be changed later this month. Blood cultures- negative x5 days Diabetes Mellitus: insulin requiring- - reinforced and encourage - Monitor Accu-Cheks, Continue sliding scale insulin.- - continue levemir 22 units subq in am and increae to 24 units subq qhs. -continue to monitor and adjust the regimen as needed. Chronic pain. Home medications baclofen, morphine, oxycodone. continue Oramorph. Insomnia: Home medications Ambien PRN & Trazadone 200 qHS Morbid obesity: Outpatient general surgery referral needed for possible surgical interventions Chronic pressure ulcers: Wound care team ff- however previously refused the wound care. Patient turning himself rigorously Sleep apnea, CPAP at night Anxiety and depression: no homicidal or suicidal ideations Was evaluated by psych in the ER, Felipe acted lifted, did not meet inpatient psychiatric and admission criteria. -Patient has long history of being on psychiatric medication, currently on Lexapro . Previously was on [place] and did not do well with mood on this. -Psychiatry follow-up appreciated. Hyperlipidemia: Continue Lipitor Hypothyroidism: Continue levothyroxine chronic pain - on chronic pain meds- as noted above. Substance use: tox screen on admission significant for opiates, benzos, cannabinoids constipation; laxatives as needed. Full code. On Xarelto -DNR status palliative care following. Discharge Planning difficult discharge. case management notes reviewed. no accepting facility yet. Juan Diego Zambrano MD December 20, 2016 11:38
[2016-12-20 12:03] VITALS: BP 95/45; PULSE 90; RESP 18; TEMP 98.3; O2SAT 95
[2016-12-20 16:00] VITALS: BP 106/50; PULSE 93; RESP 18; TEMP 97.9; O2SAT 95
[2016-12-20] MEDS: SIMETHICONE 80 MG CHEWABLE TAB CHEW PRN (17:53)
[2016-12-20 20:00] VITALS: BP 121/69; PULSE 102; RESP 20; TEMP 97; O2SAT 97
[2016-12-20] MEDS: traZODone HCL 100 MG TAB PO SCH ×2 (21:00→21:35)
[2016-12-20] MEDS: TOLTERODINE TARTRATE 4 MG CAP LA PO SCH (21:34)
[2016-12-20] MEDS: RIVAROXABAN 20 MG TAB PO SCH (21:35)
[2016-12-20] MEDS: ESCITALOPRAM OXALATE 20 MG TAB PO SCH (21:35)
[2016-12-20 23:32] VITALS: BP 133/63; PULSE 86; RESP 20; TEMP 97.1; O2SAT 97
[2016-12-21] MEDS: MORPHINE SULFATE 30 MG CONTROLLED RELEASE TAB PO SCH ×3 (01:55→17:59)
[2016-12-21] MEDS: ZOLPIDEM TARTRATE 5 MG TAB PO PRN ×2 (01:55→21:52)
[2016-12-21] MEDS: ALPRAZolam 1 MG TAB PO PRN ×3 (01:55→21:52)
[2016-12-21] MEDS: MORPHINE SULFATE 100 MG CONTROLLED RELEASE TAB PO SCH ×3 (01:55→17:59)
[2016-12-21] MEDS: OXYBUTYNIN CHLORIDE 5 MG TAB PO SCH ×3 (06:29→21:17)
[2016-12-21] MEDS: LEVOTHYROXINE SODIUM 50 MCG TAB PO SCH (06:29)
[2016-12-21] MEDS: MIDODRINE 5 MG TAB PO SCH ×3 (06:29→21:17)
[2016-12-21] MEDS: INSULIN DETEMIR 100 UNITS/ML VIAL SQ SCH ×2 (07:00→21:16)
[2016-12-21] MEDS: INSULIN ASPART SUPPLEMENTAL SCALE SQ SCH ×4 (07:34→21:15)
[2016-12-21 08:00] VITALS: BP 134/63; PULSE 88; RESP 19; TEMP 98.6; O2SAT 97
[2016-12-21] MEDS: NYSTATIN 100,000 U/GM PWD 15 GM BTL TOPICAL SCH ×2 (09:00→21:00)
[2016-12-21] MEDS: COLLAGENASE OINT 30 GM TUBE TOPICAL SCH (09:00)
[2016-12-21] MEDS: GABAPENTIN 300 MG CAP PO SCH ×3 (11:40→17:57)
[2016-12-21] MEDS: DOCUSATE SODIUM 50 MG/SENNA 8.6 MG TAB PO SCH ×2 (11:41→21:17)
[2016-12-21] MEDS: ASCORBIC ACID 500 MG TAB PO SCH ×2 (11:41→21:17)
[2016-12-21] MEDS: ATORVASTATIN 40 MG TAB PO SCH (11:42)
[2016-12-21] MEDS: buPROPion HCL 150 MG SUSTAINED RELEASE TAB PO SCH (11:42)
[2016-12-21] MEDS: FAMOTIDINE 20 MG TAB PO SCH (11:42)
--- NOTE | 2016-12-21 11:45 | HHI.PR ---
Subjective Remarks in no distress. denies pain. d/w the RN and no acute issues over night. Objective Vitals Vital Signs Date Time Temp Pulse Resp B/P Pulse Ox O2 Delivery O2 Flow Rate FiO2 12/21/16 08:00 98.6 88 19 134/63 97 12/20/16 23:32 97.1 86 20 133/63 97 12/20/16 20:00 97.0 102 20 121/69 97 12/20/16 17:45 Full Face Mask 40.0 12/20/16 16:00 97.9 93 18 106/50 95 12/20/16 12:21 Full Face Mask 40.0 12/20/16 12:03 98.3 90 18 95/45 95 I/O 12/20/16 12/20/16 12/20/16 12/21/16 12/21/16 12/21/16 07:00 15:00 23:00 07:00 15:00 23:00 Intake Total 960 ml 960 ml 480 ml 480 ml Output Total 2000 ml 1800 ml 2000 ml 4000 ml Balance -1040 ml -840 ml -1520 ml -3520 ml Intake Oral 960 ml 960 ml 480 ml 480 ml Output Urine Total 2000 ml 1800 ml 2000 ml 4000 ml # Bowel Movements 0 0 0 1 Result Diagram: 12/19/16 0418 12/19/16 0418 Objective Remarks GENERAL: morbidly obese, in no apparent distress. CARDIOVASCULAR: Regular rate and regular rhythm without murmurs, gallops, or rubs. RESPIRATORY: Clear to auscultation. Breath sounds equal bilaterally. No wheezes , rales, or rhonchi. GASTROINTESTINAL: Abdomen soft, non-tender, nondistended. Normal, active bowel sounds MUSCULOSKELETAL: Extremities without clubbing, cyanosis, or edema. NEURO: Alert & Oriented x4 to person, place, time, situation. Moves all ext x4 Procedures 11/25- S/P flexible cystoscopy with replacement of kyle catheter (Councill catheter) Medications and IVs Current Medications Insulin Human Regular (NovoLIN R INJ) 10 units ONCE ONCE SQ Last administered on 11/10/16t 21:05; Start 11/10/16 at 16:00; Stop 11/10/16 at 16:01; Status DC Sodium Chloride (NS Flush) 2 ml UNSCH PRN IV FLUSH FLUSH AFTER USING IV ACCESS Last administered on 11/28/16 07:09; Start 11/10/16 at 21:45 Sodium Chloride (NS Flush) 2 ml BID IV FLUSH Last administered on 12/20/16 21: 00; Start 11/11/16 at 09:00 Naloxone HCl (Narcan Inj) 0.4 mg UNSCH PRN IV SEE LABEL COMMENTS; Start at 21:45 Albuterol Sulfate (Albuterol Neb) 2.5 mg Q6HR ALT NEB PRN NEB SHORTNESS OF BREATH; Start 11/11/16 at 02:00 Alprazolam (Xanax) 2 mg Q6HR PRN PO BELÉN Last administered on 12/21/16 01:55; Start 11/11/16 at 02:00 Ascorbic Acid (Vitamin C) 500 mg BID PO Last administered on 12/20/16 21:34; Start 11/11/16 at 09:00 Atorvastatin Calcium (Lipitor) 40 mg DAILY PO Last administered on 12/20/16 09: 44; Start 11/11/16 at 09:00 Baclofen (Lioresal) 20 mg Q6HR PRN PO MUSCLE SPASM Last administered on 21:36; Start 11/11/16 at 02:00 Bupropion HCl (Wellbutrin Xl 24 Hr) 150 mg DAILY PO ; Start 11/11/16 at 09:00; Status UNV Bupropion HCl (Wellbutrin Sr) 150 mg BID PO Last administered on 11/24/16 10: 23; Start 11/11/16 at 09:00; Stop 11/24/16 at 14:19; Status DC Chlorhexidine Gluconate (Peridex 0.12% Liq) 10 ml BID PRN SWISH-SPIT peridontitis; Start 11/11/16 at 02:00 Clotrimazole (Lotrimin 1% Cream) 1 applic DAILY PRN TOPICAL RASH IN SKIN FOLDS Last administered on 12/05/16 11:50; Start 11/11/16 at 02:00 Collagenase (Santyl Oint) 1 applic Q8HR TOPICAL Last administered on 11/23/16 12:12; Start 11/11/16 at 06:00; Stop 11/23/16 at 12:34; Status DC Escitalopram Oxalate (Lexapro) 20 mg HS PO Last administered on 11/13/16 21:18 ; Start 11/11/16 at 21:00; Stop 11/14/16 at 15:43; Status DC Furosemide (Lasix) 40 mg BID PO Last administered on 11/28/16 08:34; Start at 09:00; Status Hold Insulin Detemir (Levemir Inj) 55 units HS SQ Last administered on 11/19/16 21: 43; Start 11/11/16 at 21:00; Stop 11/19/16 at 22:31; Status DC Levothyroxine Sodium (Synthroid) 50 mcg DAILY@06 PO Last administered on 06:29; Start 11/11/16 at 06:00 Morphine Sulfate (Oramorph Sr) 30 mg Q8H PO Last administered on 12/21/16 01: 55; Start 11/11/16 at 02:00 Morphine Sulfate (Oramorph Sr) 100 mg Q8H PO Last administered on 12/21/16 01: 55; Start 11/11/16 at 02:00 Potassium Chloride (KCl) 20 meq DAILY PO Last administered on 11/16/16 08:47; Start 11/11/16 at 09:00; Status Hold Promethazine HCl (Phenergan) 25 mg Q8HR PRN PO Nausea/Vomiting; Start 11/11/16 at 02:00 Famotidine (Pepcid) 20 mg DAILY PO Last administered on 12/20/16 09:44; Start 11/11/16 at 09:00 Rivaroxaban (Xarelto) 20 mg HS PO Last administered on 12/20/16 21:35; Start at 21:00 Simethicone (Mylicon Chew) 160 mg ACHS PRN CHEW GAS RETENTION Last administered on 12/20/16 17:53; Start 11/11/16 at 02:00 Trazodone HCl (Desyrel) 200 mg HS PO Last administered on 11/13/16 21:17; Start 11/11/16 at 21:00; Stop 11/14/16 at 10:19; Status DC Zolpidem Tartrate (Ambien) 10 mg HS PO Last administered on 12/09/16 22:44; Start 11/11/16 at 21:00; Stop 12/10/16 at 16:13; Status DC Tolterodine Tartrate (Detrol La) 2 mg HS PO Last administered on 12/13/16 20:57 ; Start 11/11/16 at 21:00; Stop 12/14/16 at 13:31; Status DC Oxycodone HCl (Roxicodone) 30 mg Q4H PRN PO PAIN Last administered on 09:01; Start 11/11/16 at 04:00; Stop 12/04/16 at 11:36; Status DC Hydromorphone HCl 0.5 mg 0.5 mg Q4H PRN IV PUSH breakthrough pain Last administered on 11/16/16 16:41; Start 11/11/16 at 02:15; Stop 11/16/16 at 22:41; Status DC Levofloxacin/ Dextrose (Levaquin 750 Mg Premix Inj) 150 ml @ 100 mls/hr Q24H IV Last administered on 11/14/16 03:44; Start 11/11/16 at 03:00; Stop 11/14/16 at 10:19; Status DC Bupropion HCl (Wellbutrin Sr 12 Hr) 150 mg DAILY PO ; Start 11/11/16 at 09:00; Status Cancel Bupropion HCl (Wellbutrin Sr) 150 mg DAILY PO Last administered on 11/11/16 12 :45; Start 11/11/16 at 09:00; Stop 11/12/16 at 07:22; Status DC Ondansetron HCl (Zofran Inj) 4 mg Q6HR PRN IV PUSH NAUSEA Last administered on 12/06/16 17:36; Start 11/11/16 at 03:15 Dextrose (D50w (Vial) Inj) 25 ml UNSCH PRN IV PUSH HYPOGLYCEMIA-SEE COMMENTS; Start 11/12/16 at 11:45 Glucagon (Glucagon Inj) 1 mg UNSCH PRN OTHER HYPOGLYCEMIA-SEE COMMENTS; Start 11/12/16 at 11:45 Insulin Aspart (NovoLOG SUPPLEMENTAL SCALE) 1 ACHS SLIDING SCALE SQ Last administered on 12/21/16 07:34; Start 11/12/16 at 16:00 Docusate Sodium (Colace) 100 mg BID PO Last administered on 12/09/16 22:45; Start 11/13/16 at 21:00; Stop 12/10/16 at 16:04; Status DC Magnesium Citrate (Citroma Liq) 600 ml Q24H PRN PO CONSTIPATION Last administered on 12/19/16 09:52; Start 11/13/16 at 14:45 Nystatin (Mycostatin Powder) 1 applic BID TOPICAL Last administered on 09:46; Start 11/13/16 at 21:00 Levofloxacin (Levaquin) 500 mg DAILY@11 PO Last administered on 11/21/16 10:53 ; Start 11/15/16 at 11:00; Stop 11/22/16 at 10:59; Status DC Trazodone HCl (Desyrel) 100 mg HS PO Last administered on 11/16/16 20:32; Start 11/14/16 at 21:00; Stop 11/16/16 at 22:40; Status DC Trazodone HCl (Desyrel) 200 mg HS PO Last administered on 12/20/16 21:35; Start 11/17/16 at 21:00 Hydromorphone HCl (Dilaudid Pf Inj) 1 mg Q4H PRN IV PUSH breakthrough pain Last administered on 11/29/16 10:31; Start 11/17/16 at 02:15; Stop 11/29/16 at 12:37; Status DC Trazodone HCl (Desyrel) 100 mg ONCE ONCE PO Last administered on 11/16/16 23: 54; Start 11/16/16 at 22:45; Stop 11/16/16 at 22:46; Status DC Acetaminophen (Tylenol) 650 mg Q4H PRN PO Headache, fever Last administered on 12/09/16 08:49; Start 11/18/16 at 17:30 Insulin Detemir (Levemir Inj) 30 units BID SQ Last administered on 11/20/16 09: 20; Start 11/20/16 at 09:00; Stop 11/20/16 at 11:16; Status DC Insulin Aspart (NovoLOG INJ) 6 units TIDAC SQ Last administered on 11/30/16 11 :10; Start 11/20/16 at 08:00; Stop 11/30/16 at 15:15; Status DC Insulin Detemir (Levemir Inj) 35 units BID SQ Last administered on 11/30/16 10 :40; Start 11/20/16 at 21:00; Stop 11/30/16 at 15:16; Status DC Collagenase (Santyl Oint) 1 applic DAILY TOPICAL Last administered on 12/20/16 09:00; Start 11/23/16 at 12:45 Povidone Iodine (Betadine 10% Oint) 1 pkt DAILY TOPICAL ; Start 11/23/16 at 12: 45; Stop 11/23/16 at 18:32; Status DC Povidone Iodine (Betadine 10% Oint) 1 applic DAILY TOPICAL Last administered on 12/20/16 09:47; Start 11/23/16 at 18:32 Insulin Human Regular (NovoLIN R INJ) 10 units ONCE ONCE IV PUSH Last administered on 11/23/16 22:28; Start 11/23/16 at 20:45; Stop 11/23/16 at 20:46 ; Status DC Bupropion HCl 200 mg 200 mg BID PO Last administered on 11/29/16 09:11; Start 11/24/16 at 21:00; Stop 12/10/16 at 16:11; Status DC Lactated Ringer's 1,000 ml @ 30 mls/hr Q24H PRN IV SEE LABEL COMMENTS; Start at 08:30; Stop 11/28/16 at 08:31; Status DC Sodium Chloride (NS 500 ml Inj) 500 ml @ 30 mls/hr [id number] PRN IV SEE LABEL COMMENTS; Start 11/25/16 at 08:30; Stop 11/28/16 at 08:31; Status DC Metoprolol Tartrate (Lopressor) 25 mg WORK CHECKER PRN PO SEE LABEL COMMENTS; Start 11/25/16 at 08:30; Stop 11/28/16 at 08:31; Status DC Povidone Iodine (Betadine 5% Antisepsis Kit) 1 applic WORK CHECKER PRN EACH NARE SEE LABEL COMMENTS; Start 11/25/16 at 08:30; Stop 11/28/16 at 08:31; Status DC Chlorhexidine Gluconate (Chlorhexidine 2% Cloth) 3 pack WORK CHECKER PRN TOPICAL SEE LABEL COMMENTS; Start 11/25/16 at 08:30; Stop 11/28/16 at 08:31; Status DC Insulin Human Regular (NovoLIN R INJ) See Protocol Table ... WORK CHECKER PRN SQ SEE PROTOCOL TABLE; Start 11/25/16 at 08:30; Stop 11/28/16 at 08:31; Status DC Oxybutynin Chloride (Ditropan) 5 mg Q12HR PO Last administered on 12/14/16 09: 23; Start 11/28/16 at 14:00; Stop 12/14/16 at 13:31; Status DC Hydromorphone HCl (Dilaudid Pf Inj) 1.5 mg Q4H PRN IV PUSH breakthrough pain Last administered on 12/04/16 11:21; Start 11/29/16 at 14:15; Stop 12/04/16 at 11:36; Status DC Miscellaneous Medication (ASP Crit: Doc allergy to Penicillin/ Cephalosp) 1 UNSCH X1 PRN .XX PHARMACY DOCUMENTATION; Start 11/29/16 at 15:30; Stop at 15:29; Status DC Miscellaneous Medication 1 1 UNSCH X1 PRN XX PHARMACY DOCUMENTATION; Start at 15:30; Stop 11/30/16 at 15:29; Status DC Meropenem/Sodium Chloride (Merrem Inj/NS Inj) 100 ml @ 200 mls/hr Q8H IV Last administered on 12/01/16 09:21; Start 11/29/16 at 16:00; Stop 12/01/16 at 14:34 ; Status DC Miscellaneous Medication 1 1 UNSCH X1 PRN XX PHARMACY DOCUMENTATION; Start at 15:30; Stop 11/30/16 at 15:29; Status DC Linezolid 300 ml @ 300 mls/hr Q12H IV Last administered on 12/01/16 04:12; Start 11/29/16 at 16:00; Stop 12/01/16 at 14:34; Status DC Fluconazole/ Sodium Chloride (Diflucan 400 Mg Premix Bag) 200 ml @ 100 mls/hr Q24H IV Last administered on 11/30/16 18:42; Start 11/29/16 at 18:00; Stop at 14:34; Status DC Insulin Aspart (NovoLOG INJ) 12 units TIDAC SQ Last administered on 11/30/16 18:43; Start 11/30/16 at 17:00; Status Hold Insulin Detemir (Levemir Inj) 40 units BID SQ Last administered on 12/01/16 09 :23; Start 11/30/16 at 21:00; Stop 12/01/16 at 17:30; Status DC Midodrine (Proamatine) 10 mg Q8HR PO Last administered on 12/21/16 06:29; Start 11/30/16 at 21:00 Miscellaneous Medication (ASP Crit: Doc ESBL, MDR A baumannii or P aer) 1 UNSCH X1 PRN .XX PHARMACY DOCUMENTATION; Start 12/01/16 at 14:45; Stop 12/02/16 at 14 :44; Status DC Miscellaneous Medication 1 1 UNSCH X1 PRN XX PHARMACY DOCUMENTATION; Start at 14:45; Stop 12/02/16 at 14:44; Status DC Ertapenem/Sodium Chloride (INVanz INJ/NS Inj) 100 ml @ 200 mls/hr Q24H IV Last administered on 12/12/16 17:14; Start 12/01/16 at 16:00; Stop 12/13/16 at 09 :00; Status DC Insulin Detemir 20 units 20 units BID SQ Last administered on 12/16/16 21:05; Start 12/01/16 at 21:00; Stop 12/17/16 at 08:49; Status DC Sodium Chloride (NS 1000 ml Inj) 1,000 ml @ 1,000 mls/hr Q1H IV Last administered on 12/02/16 01:00; Start 12/02/16 at 00:00; Stop 12/02/16 at 01:59 ; Status DC Albumin Human (Albumin 5% Inj) 25 gm ONCE ONCE IV Last administered on 00:30; Start 12/02/16 at 00:00; Stop 12/02/16 at 00:07; Status DC Hydromorphone HCl (Dilaudid Pf Inj) 1 mg Q4H PRN IV PUSH breakthrough pain; Start 12/04/16 at 11:45; Stop 12/04/16 at 11:45; Status DC Hydromorphone HCl (Dilaudid Pf Inj) 1 mg Q4H PRN IV PUSH breakthrough pain Last administered on 12/06/16 12:22; Start 12/04/16 at 14:15; Stop 12/06/16 at 12:32; Status DC Oxycodone HCl (Roxicodone) 30 mg Q4H PRN PO PAIN SCALE 8 TO 10 Last administered on 12/21/16 06:29; Start 12/06/16 at 12:30 Bupropion HCl (Wellbutrin Sr) 150 mg DAILY PO Last administered on 12/20/16 09: 44; Start 12/10/16 at 16:15 Escitalopram Oxalate (Lexapro) 20 mg HS PO Last administered on 12/20/16 21:35 ; Start 12/10/16 at 21:00 Senna/Docusate Sodium (Erin-Colace) 1 tab BID PO Last administered on 12/20/16 21:34; Start 12/10/16 at 21:00 Zolpidem Tartrate (Ambien) 5 mg HS PRN PO INSOMNIA Last administered on 01:55; Start 12/10/16 at 21:00 Multi-Ingredient Ointment (Eucerin Cream) 1 applic ONCE ONCE TOPICAL Last administered on 12/11/16 00:54; Start 12/11/16 at 00:00; Stop 12/11/16 at 00:01 ; Status DC Diphenhydramine HCl (Benadryl 2% Cream) 1 applic TID PRN TOPICAL ITCHING Last administered on 12/11/16 16:09; Start 12/11/16 at 08:15 Trazodone HCl (Desyrel) 200 mg HS PO ; Start 12/11/16 at 21:00 Gabapentin (Neurontin) 300 mg TID PO Last administered on 12/20/16 17:52; Start 12/12/16 at 18:00 Oxybutynin Chloride (Ditropan) 5 mg Q8HR PO Last administered on 12/21/16 06: 29; Start 12/14/16 at 14:00 Tolterodine Tartrate (Detrol La) 4 mg HS PO Last administered on 12/20/16 21:34 ; Start 12/14/16 at 21:00 Balanced Salt Solution (Bss Opth Soln) 15 applic STK-MED ONCE .ROUTE ; Start 12/15/16 at 08:04; Stop 12/15/16 at 08:05; Status DC Insulin Detemir (Levemir Inj) 20 units AC BREAKFAST SQ Last administered on 07:00; Start 12/18/16 at 07:00; Stop 12/19/16 at 09:36; Status DC Insulin Detemir (Levemir Inj) 22 units HS SQ Last administered on 12/19/16 22: 37; Start 12/17/16 at 21:00; Stop 12/20/16 at 11:37; Status DC Polyethylene Glycol (Miralax) 17 gm DAILY PRN PO CONSTIPATION Last administered on 12/19/16 09:52; Start 12/19/16 at 09:45 Lactulose (Lactulose Liq) 30 ml ONCE ONCE PO Last administered on 12/19/16 09: 52; Start 12/19/16 at 09:45; Stop 12/19/16 at 09:46; Status DC Insulin Detemir (Levemir Inj) 22 units AC BREAKFAST SQ Last administered on 07:00; Start 12/20/16 at 07:00 Insulin Detemir (Levemir Inj) 24 units HS SQ Last administered on 12/20/16 21: 00; Start 12/20/16 at 21:00 Date of Insertion: Nov 25, 2016 A/P Assessment and Plan A/P Neurogenic Bladder Sepsis- source likely UTI- ESBL hypotension-resolved Better BP readings- continue Midodrine S/P Tx for UTI - S/p Levaquin and Ertapenem S/P replacement of Kyle catheter by Dr. Meraz- 11/25. On Oxybutynin 5mg bid. urine cath leakage- urology was reconsulted; patient declined catheter exchange- no urological intervention at this time per urology- urine cath needs to be changed later this month. Blood cultures- negative x5 days Diabetes Mellitus: insulin requiring- - reinforced and encourage - Monitor Accu-Cheks, Continue sliding scale insulin.- - continue levemir 22 units subq in am and 24 units subq qhs. -continue to monitor and adjust the regimen as needed. Chronic pain. Home medications baclofen, morphine, oxycodone. continue Oramorph. Insomnia: Home medications Ambien PRN & Trazadone 200 qHS Morbid obesity: Outpatient general surgery referral needed for possible surgical interventions Chronic pressure ulcers: Wound care team ff- . Patient turning himself rigorously Sleep apnea, CPAP at night Anxiety and depression: no homicidal or suicidal ideations Was evaluated by psych in the ER, Felipe acted lifted, did not meet inpatient psychiatric and admission criteria. -Patient has long history of being on psychiatric medication, currently on Lexapro . Previously was on Between and did not do well with mood on this. -Psychiatry follow-up appreciated. Hyperlipidemia: Continue Lipitor Hypothyroidism: Continue levothyroxine chronic pain - on chronic pain meds- as noted above. Substance use: tox screen on admission significant for opiates, benzos, cannabinoids constipation; laxatives as needed. Full code. On Xarelto -DNR status palliative care following. Discharge Planning difficult discharge. case management notes reviewed. no accepting facility yet. Juan Diego Zambrano MD December 21, 2016 11:45
[2016-12-21] MEDS: BACLOFEN 20 MG TAB PO PRN (11:52)
[2016-12-21 12:00] VITALS: BP 113/56; PULSE 90; RESP 19; TEMP 98.3; O2SAT 92
[2016-12-21] MEDS: SODIUM CHLORIDE 0.9% FLUSH 10 ML FLUSH IV FLUSH SCH ×2 (12:05→21:18)
[2016-12-21] MEDS: POVIDONE IODINE 10% OINT 30 GM TUBE TOPICAL SCH (13:22)
[2016-12-21] MEDS: MAGNESIUM CITRATE SOLN 300 ML BTL PO PRN ×2 (13:28→13:38)
[2016-12-21 16:00] VITALS: BP 102/49; PULSE 88; RESP 18; TEMP 96.6; O2SAT 90
[2016-12-21 18:04] VITALS: O2SAT 92
[2016-12-21 20:00] VITALS: BP 97/55; PULSE 88; RESP 19; TEMP 97.5; O2SAT 96
[2016-12-21] MEDS: ESCITALOPRAM OXALATE 20 MG TAB PO SCH (21:17)
[2016-12-21] MEDS: RIVAROXABAN 20 MG TAB PO SCH (21:17)
[2016-12-21] MEDS: TOLTERODINE TARTRATE 4 MG CAP LA PO SCH (21:17)
[2016-12-21] MEDS: traZODone HCL 100 MG TAB PO SCH (21:54)
[2016-12-22] VITALS (8 sets, daily range): BP systolic 91–125; BP diastolic 50–61; PULSE 76–101; RESP 16–20; TEMP 96.6–98.1; O2SAT 90–98
[2016-12-22] MEDS: MORPHINE SULFATE 30 MG CONTROLLED RELEASE TAB PO SCH ×3 (01:39→17:37)
[2016-12-22] MEDS: MORPHINE SULFATE 100 MG CONTROLLED RELEASE TAB PO SCH ×3 (01:40→17:36)
[2016-12-22] MEDS: COLLAGENASE OINT 30 GM TUBE TOPICAL SCH (02:05)
[2016-12-22] MEDS: BACLOFEN 20 MG TAB PO PRN ×2 (02:11→08:35)
[2016-12-22] MEDS: OXYBUTYNIN CHLORIDE 5 MG TAB PO SCH ×3 (06:28→21:08)
[2016-12-22] MEDS: INSULIN ASPART SUPPLEMENTAL SCALE SQ SCH ×4 (06:28→20:45)
[2016-12-22] MEDS: LEVOTHYROXINE SODIUM 50 MCG TAB PO SCH (06:28)
[2016-12-22] MEDS: MIDODRINE 5 MG TAB PO SCH ×3 (06:29→21:08)
[2016-12-22] MEDS: INSULIN DETEMIR 100 UNITS/ML VIAL SQ SCH ×2 (06:31→20:46)
[2016-12-22] MEDS: ALPRAZolam 1 MG TAB PO PRN (08:34)
[2016-12-22] MEDS: SODIUM CHLORIDE 0.9% FLUSH 10 ML FLUSH IV FLUSH SCH ×2 (09:00→20:32)
[2016-12-22] MEDS: ATORVASTATIN 40 MG TAB PO SCH (09:37)
[2016-12-22] MEDS: FAMOTIDINE 20 MG TAB PO SCH (09:37)
[2016-12-22] MEDS: buPROPion HCL 150 MG SUSTAINED RELEASE TAB PO SCH (09:37)
[2016-12-22] MEDS: GABAPENTIN 300 MG CAP PO SCH ×3 (09:37→17:23)
[2016-12-22] MEDS: DOCUSATE SODIUM 50 MG/SENNA 8.6 MG TAB PO SCH ×2 (09:37→20:40)
[2016-12-22] MEDS: ASCORBIC ACID 500 MG TAB PO SCH ×2 (09:37→20:47)
[2016-12-22] MEDS: POVIDONE IODINE 10% OINT 30 GM TUBE TOPICAL SCH (09:38)
[2016-12-22] MEDS: NYSTATIN 100,000 U/GM PWD 15 GM BTL TOPICAL SCH ×2 (09:39→20:47)
--- NOTE | 2016-12-22 11:09 | HHI.PR ---
Subjective Remarks in no acute distress. has mild pain to the back. Objective Vitals Vital Signs Date Time Temp Pulse Resp B/P Pulse Ox O2 Delivery O2 Flow Rate FiO2 12/22/16 08:00 96.8 101 16 115/56 92 12/22/16 04:47 97.4 100 20 125/57 93 12/22/16 02:00 Room Air 12/22/16 01:04 98 40 12/22/16 01:04 98 BiPAP 40 12/21/16 22:00 Bi-Pap 12/21/16 20:00 97.5 88 19 97/55 96 12/21/16 20:00 Room Air 12/21/16 18:04 92 CPAP 21 12/21/16 16:00 96.6 88 18 102/49 90 12/21/16 14:20 16 12/21/16 12:52 16 12/21/16 12:52 16 12/21/16 12:00 98.3 90 19 113/56 92 I/O 12/21/16 12/21/16 12/21/16 12/22/16 12/22/16 12/22/16 06:59 14:59 22:59 06:59 14:59 22:59 Intake Total 480 ml 480 ml 360 ml 760 ml Output Total 4000 ml 2650 ml 1500 ml 2000 ml Balance -3520 ml -2170 ml -1140 ml -1240 ml Intake Oral 480 ml 480 ml 360 ml 760 ml Output Urine Total 4000 ml 2650 ml 1500 ml 2000 ml # Bowel Movements 1 0 0 1 Result Diagram: 12/19/16 0418 12/19/16 041 Objective Remarks GENERAL: morbidly obese, in no apparent distress. CARDIOVASCULAR: Regular rate and regular rhythm without murmurs, gallops, or rubs. RESPIRATORY: Clear to auscultation. Breath sounds equal bilaterally. No wheezes , rales, or rhonchi. GASTROINTESTINAL: Abdomen soft, non-tender, nondistended. Normal, active bowel sounds MUSCULOSKELETAL: Extremities without clubbing, cyanosis, or edema. NEURO: Alert & Oriented x4 to person, place, time, situation. Moves all ext x4 Procedures 11/25- S/P flexible cystoscopy with replacement of kyle catheter (Councill catheter) Medications and IVs Current Medications Insulin Human Regular (NovoLIN R INJ) 10 units ONCE ONCE SQ Last administered on 11/10/16 21:05; Start 11/10/16 at 16:00; Stop 11/10/16 at 16:01; Status DC Sodium Chloride (NS Flush) 2 ml UNSCH PRN IV FLUSH FLUSH AFTER USING IV ACCESS Last administered on 11/28/16 07:09; Start 11/10/16 at 21:45 Sodium Chloride (NS Flush) 2 ml BID IV FLUSH Last administered on 12/21/16 21: 18; Start 11/11/16 at 09:00 Naloxone HCl (Narcan Inj) 0.4 mg UNSCH PRN IV SEE LABEL COMMENTS; Start at 21:45 Albuterol Sulfate (Albuterol Neb) 2.5 mg Q6HR ALT NEB PRN NEB SHORTNESS OF BREATH; Start 11/11/16 at 02:00 Alprazolam (Xanax) 2 mg Q6HR PRN PO BELÉN Last administered on 12/22/16 08:34; Start 11/11/16 at 02:00 Ascorbic Acid (Vitamin C) 500 mg BID PO Last administered on 12/22/16 09:37; Start 11/11/16 at 09:00 Atorvastatin Calcium (Lipitor) 40 mg DAILY PO Last administered on 12/22/16 09 :37; Start 11/11/16 at 09:00 Baclofen (Lioresal) 20 mg Q6HR PRN PO MUSCLE SPASM Last administered on 08:35; Start 11/11/16 at 02:00 Bupropion HCl (Wellbutrin Xl 24 Hr) 150 mg DAILY PO ; Start 11/11/16 at 09:00; Status UNV Bupropion HCl (Wellbutrin Sr) 150 mg BID PO Last administered on 11/24/16 10: 23; Start 11/11/16 at 09:00; Stop 11/24/16 at 14:19; Status DC Chlorhexidine Gluconate (Peridex 0.12% Liq) 10 ml BID PRN SWISH-SPIT peridontitis; Start 11/11/16 at 02:00 Clotrimazole (Lotrimin 1% Cream) 1 applic DAILY PRN TOPICAL RASH IN SKIN FOLDS Last administered on 12/05/16 11:50; Start 11/11/16 at 02:00 Collagenase (Santyl Oint) 1 applic Q8HR TOPICAL Last administered on 11/23/16 12:12; Start 11/11/16 at 06:00; Stop 11/23/16 at 12:34; Status DC Escitalopram Oxalate (Lexapro) 20 mg HS PO Last administered on 11/13/16 21:18 ; Start 11/11/16 at 21:00; Stop 11/14/16 at 15:43; Status DC Furosemide (Lasix) 40 mg BID PO Last administered on 11/28/16 08:34; Start at 09:00; Status Hold Insulin Detemir (Levemir Inj) 55 units HS SQ Last administered on 11/19/16 21: 43; Start 11/11/16 at 21:00; Stop 11/19/16 at 22:31; Status DC Levothyroxine Sodium (Synthroid) 50 mcg DAILY@06 PO Last administered on 06:28; Start 11/11/16 at 06:00 Morphine Sulfate (Oramorph Sr) 30 mg Q8H PO Last administered on 12/22/16 01: 39; Start 11/11/16 at 02:00 Morphine Sulfate (Oramorph Sr) 100 mg Q8H PO Last administered on 12/22/16 01: 40; Start 11/11/16 at 02:00 Potassium Chloride (KCl) 20 meq DAILY PO Last administered on 11/16/16 08:47; Start 11/11/16 at 09:00; Status Hold Promethazine HCl (Phenergan) 25 mg Q8HR PRN PO Nausea/Vomiting; Start 11/11/16 at 02:00 Famotidine (Pepcid) 20 mg DAILY PO Last administered on 12/22/16 09:37; Start 11/11/16 at 09:00 Rivaroxaban (Xarelto) 20 mg HS PO Last administered on 12/21/16 21:17; Start 11/11/16 at 21:00 Simethicone (Mylicon Chew) 160 mg ACHS PRN CHEW GAS RETENTION Last administered on 12/20/16 17:53; Start 11/11/16 at 02:00 Trazodone HCl (Desyrel) 200 mg HS PO Last administered on 11/13/16 21:17; Start 11/11/16 at 21:00; Stop 11/14/16 at 10:19; Status DC Zolpidem Tartrate (Ambien) 10 mg HS PO Last administered on 12/09/16 22:44; Start 11/11/16 at 21:00; Stop 12/10/16 at 16:13; Status DC Tolterodine Tartrate (Detrol La) 2 mg HS PO Last administered on 12/13/16 20:57 ; Start 11/11/16 at 21:00; Stop 12/14/16 at 13:31; Status DC Oxycodone HCl (Roxicodone) 30 mg Q4H PRN PO PAIN Last administered on 09:01; Start 11/11/16 at 04:00; Stop 12/04/16 at 11:36; Status DC Hydromorphone HCl 0.5 mg 0.5 mg Q4H PRN IV PUSH breakthrough pain Last administered on 11/16/16 16:41; Start 11/11/16 at 02:15; Stop 11/16/16 at 22:41; Status DC Levofloxacin/ Dextrose (Levaquin 750 Mg Premix Inj) 150 ml @ 100 mls/hr Q24H IV Last administered on 11/14/16 03:44; Start 11/11/16 at 03:00; Stop 11/14/16 at 10:19; Status DC Bupropion HCl (Wellbutrin Sr 12 Hr) 150 mg DAILY PO ; Start 11/11/16 at 09:00; Status Cancel Bupropion HCl (Wellbutrin Sr) 150 mg DAILY PO Last administered on 11/11/16 12 :45; Start 11/11/16 at 09:00; Stop 11/12/16 at 07:22; Status DC Ondansetron HCl (Zofran Inj) 4 mg Q6HR PRN IV PUSH NAUSEA Last administered on 12/06/16 17:36; Start 11/11/16 at 03:15 Dextrose (D50w (Vial) Inj) 25 ml UNSCH PRN IV PUSH HYPOGLYCEMIA-SEE COMMENTS; Start 11/12/16 at 11:45 Glucagon (Glucagon Inj) 1 mg UNSCH PRN OTHER HYPOGLYCEMIA-SEE COMMENTS; Start 11/12/16 at 11:45 Insulin Aspart (NovoLOG SUPPLEMENTAL SCALE) 1 ACHS SLIDING SCALE SQ Last administered on 12/22/16 06:28; Start 11/12/16 at 16:00 Docusate Sodium (Colace) 100 mg BID PO Last administered on 12/09/16 22:45; Start 11/13/16 at 21:00; Stop 12/10/16 at 16:04; Status DC Magnesium Citrate (Citroma Liq) 600 ml Q24H PRN PO CONSTIPATION Last administered on 12/21/16 13:38; Start 11/13/16 at 14:45 Nystatin (Mycostatin Powder) 1 applic BID TOPICAL Last administered on 09:39; Start 11/13/16 at 21:00 Levofloxacin (Levaquin) 500 mg DAILY@11 PO Last administered on 11/21/16 10:53 ; Start 11/15/16 at 11:00; Stop 11/22/16 at 10:59; Status DC Trazodone HCl (Desyrel) 100 mg HS PO Last administered on 11/16/16 20:32; Start 11/14/16 at 21:00; Stop 11/16/16 at 22:40; Status DC Trazodone HCl (Desyrel) 200 mg HS PO Last administered on 12/20/16 21:35; Start 11/17/16 at 21:00; Stop 12/21/16 at 11:44; Status DC Hydromorphone HCl (Dilaudid Pf Inj) 1 mg Q4H PRN IV PUSH breakthrough pain Last administered on 11/29/16 10:31; Start 11/17/16 at 02:15; Stop 11/29/16 at 12:37; Status DC Trazodone HCl (Desyrel) 100 mg ONCE ONCE PO Last administered on 11/16/16 23: 54; Start 11/16/16 at 22:45; Stop 11/16/16 at 22:46; Status DC Acetaminophen (Tylenol) 650 mg Q4H PRN PO Headache, fever Last administered on 12/09/16 08:49; Start 11/18/16 at 17:30 Insulin Detemir (Levemir Inj) 30 units BID SQ Last administered on 11/20/16 09: 20; Start 11/20/16 at 09:00; Stop 11/20/16 at 11:16; Status DC Insulin Aspart (NovoLOG INJ) 6 units TIDAC SQ Last administered on 11/30/16 11 :10; Start 11/20/16 at 08:00; Stop 11/30/16 at 15:15; Status DC Insulin Detemir (Levemir Inj) 35 units BID SQ Last administered on 11/30/16 10 :40; Start 11/20/16 at 21:00; Stop 11/30/16 at 15:16; Status DC Collagenase (Santyl Oint) 1 applic DAILY TOPICAL Last administered on 02:05; Start 11/23/16 at 12:45 Povidone Iodine (Betadine 10% Oint) 1 pkt DAILY TOPICAL ; Start 11/23/16 at 12: 45; Stop 11/23/16 at 18:32; Status DC Povidone Iodine (Betadine 10% Oint) 1 applic DAILY TOPICAL Last administered on 12/22/16 09:38; Start 11/23/16 at 18:32 Insulin Human Regular (NovoLIN R INJ) 10 units ONCE ONCE IV PUSH Last administered on 11/23/16 22:28; Start 11/23/16 at 20:45; Stop 11/23/16 at 20:46 ; Status DC Bupropion HCl 200 mg 200 mg BID PO Last administered on 11/29/16 09:11; Start 11/24/16 at 21:00; Stop 12/10/16 at 16:11; Status DC Lactated Ringer's 1,000 ml @ 30 mls/hr Q24H PRN IV SEE LABEL COMMENTS; Start at 08:30; Stop 11/28/16 at 08:31; Status DC Sodium Chloride (NS 500 ml Inj) 500 ml @ 30 mls/hr [id number] PRN IV SEE LABEL COMMENTS; Start 11/25/16 at 08:30; Stop 11/28/16 at 08:31; Status DC Metoprolol Tartrate (Lopressor) [address] TRANSCRIBER PRN PO SEE LABEL COMMENTS; Start 11/25/16 at 08:30; Stop 11/28/16 at 08:31; Status DC Povidone Iodine (Betadine 5% Antisepsis Kit) [address] TRANSCRIBER PRN EACH NARE SEE LABEL COMMENTS; Start 11/25/16 at 08:30; Stop 11/28/16 at 08:31; Status DC Chlorhexidine Gluconate (Chlorhexidine 2% Cloth) [address] TRANSCRIBER PRN TOPICAL SEE LABEL COMMENTS; Start 11/25/16 at 08:30; Stop 11/28/16 at 08:31; Status DC Insulin Human Regular (NovoLIN R INJ) See Protocol Table ... COURT TRANSCRIBER PRN SQ SEE PROTOCOL TABLE; Start 11/25/16 at 08:30; Stop 11/28/16 at 08:31; Status DC Oxybutynin Chloride (Ditropan) 5 mg Q12HR PO Last administered on 12/14/16 09: 23; Start 11/28/16 at 14:00; Stop 12/14/16 at 13:31; Status DC Hydromorphone HCl (Dilaudid Pf Inj) 1.5 mg Q4H PRN IV PUSH breakthrough pain Last administered on 12/04/16 11:21; Start 11/29/16 at 14:15; Stop 12/04/16 at 11:36; Status DC Miscellaneous Medication (ASP Crit: Doc allergy to Penicillin/ Cephalosp) 1 UNSCH X1 PRN .XX PHARMACY DOCUMENTATION; Start 11/29/16 at 15:30; Stop at 15:29; Status DC Miscellaneous Medication 1 1 UNSCH X1 PRN XX PHARMACY DOCUMENTATION; Start at 15:30; Stop 11/30/16 at 15:29; Status DC Meropenem/Sodium Chloride (Merrem Inj/NS Inj) 100 ml @ 200 mls/hr Q8H IV Last administered on 12/01/16 09:21; Start 11/29/16 at 16:00; Stop 12/01/16 at 14:34 ; Status DC Miscellaneous Medication 1 1 UNSCH X1 PRN XX PHARMACY DOCUMENTATION; Start at 15:30; Stop 11/30/16 at 15:29; Status DC Linezolid 300 ml @ 300 mls/hr Q12H IV Last administered on 12/01/16 04:12; Start 11/29/16 at 16:00; Stop 12/01/16 at 14:34; Status DC Fluconazole/ Sodium Chloride (Diflucan 400 Mg Premix Bag) 200 ml @ 100 mls/hr Q24H IV Last administered on 11/30/16 18:42; Start 11/29/16 at 18:00; Stop at 14:34; Status DC Insulin Aspart (NovoLOG INJ) 12 units TIDAC SQ Last administered on 11/30/16 18:43; Start 11/30/16 at 17:00; Status Hold Insulin Detemir (Levemir Inj) 40 units BID SQ Last administered on 12/01/16 09 :23; Start 11/30/16 at 21:00; Stop 12/01/16 at 17:30; Status DC Midodrine (Proamatine) 10 mg Q8HR PO Last administered on 12/22/16 06:29; Start 11/30/16 at 21:00 Miscellaneous Medication (ASP Crit: Doc ESBL, MDR A baumannii or P aer) 1 UNSCH X1 PRN .XX PHARMACY DOCUMENTATION; Start 12/01/16 at 14:45; Stop 12/02/16 at 14 :44; Status DC Miscellaneous Medication 1 1 UNSCH X1 PRN XX PHARMACY DOCUMENTATION; Start at 14:45; Stop 12/02/16 at 14:44; Status DC Ertapenem/Sodium Chloride (INVanz INJ/NS Inj) 100 ml @ 200 mls/hr Q24H IV Last administered on 12/12/16 17:14; Start 12/01/16 at 16:00; Stop 12/13/16 at 09 :00; Status DC Insulin Detemir 20 units 20 units BID SQ Last administered on 12/16/16 21:05; Start 12/01/16 at 21:00; Stop 12/17/16 at 08:49; Status DC Sodium Chloride (NS 1000 ml Inj) 1,000 ml @ 1,000 mls/hr Q1H IV Last administered on 12/02/16 01:00; Start 12/02/16 at 00:00; Stop 12/02/16 at 01:59 ; Status DC Albumin Human (Albumin 5% Inj) 25 gm ONCE ONCE IV Last administered on 00:30; Start 12/02/16 at 00:00; Stop 12/02/16 at 00:07; Status DC Hydromorphone HCl (Dilaudid Pf Inj) 1 mg Q4H PRN IV PUSH breakthrough pain; Start 12/04/16 at 11:45; Stop 12/04/16 at 11:45; Status DC Hydromorphone HCl (Dilaudid Pf Inj) 1 mg Q4H PRN IV PUSH breakthrough pain Last administered on 12/06/16 12:22; Start 12/04/16 at 14:15; Stop 12/06/16 at 12:32; Status DC Oxycodone HCl (Roxicodone) 30 mg Q4H PRN PO PAIN SCALE 8 TO 10 Last administered on 12/22/16 10:48; Start 12/06/16 at 12:30 Bupropion HCl (Wellbutrin Sr) 150 mg DAILY PO Last administered on 12/22/16 09 :37; Start 12/10/16 at 16:15 Escitalopram Oxalate (Lexapro) 20 mg HS PO Last administered on 12/21/16 21:17 ; Start 12/10/16 at 21:00 Senna/Docusate Sodium (Erin-Colace) 1 tab BID PO Last administered on 09:37; Start 12/10/16 at 21:00 Zolpidem Tartrate (Ambien) 5 mg HS PRN PO INSOMNIA Last administered on 21:52; Start 12/10/16 at 21:00 Multi-Ingredient Ointment (Eucerin Cream) 1 applic ONCE ONCE TOPICAL Last administered on 12/11/16 00:54; Start 12/11/16 at 00:00; Stop 12/11/16 at 00:01 ; Status DC Diphenhydramine HCl (Benadryl 2% Cream) 1 applic TID PRN TOPICAL ITCHING Last administered on 12/11/16 16:09; Start 12/11/16 at 08:15 Trazodone HCl (Desyrel) 200 mg HS PO ; Start 12/11/16 at 21:00; Stop 12/21/16 at 11:49; Status DC Gabapentin (Neurontin) 300 mg TID PO Last administered on 12/22/16 09:37; Start 12/12/16 at 18:00 Oxybutynin Chloride (Ditropan) 5 mg Q8HR PO Last administered on 12/22/16 06: 28; Start 12/14/16 at 14:00 Tolterodine Tartrate (Detrol La) 4 mg HS PO Last administered on 12/21/16 21: 17; Start 12/14/16 at 21:00 Balanced Salt Solution (Bss Opth Soln) 15 applic STK-MED ONCE .ROUTE ; Start 12/15/16 at 08:04; Stop 12/15/16 at 08:05; Status DC Insulin Detemir (Levemir Inj) 20 units AC BREAKFAST SQ Last administered on 07:00; Start 12/18/16 at 07:00; Stop 12/19/16 at 09:36; Status DC Insulin Detemir (Levemir Inj) 22 units HS SQ Last administered on 12/19/16 22: 37; Start 12/17/16 at 21:00; Stop 12/20/16 at 11:37; Status DC Polyethylene Glycol (Miralax) 17 gm DAILY PRN PO CONSTIPATION Last administered on 12/19/16 09:52; Start 12/19/16 at 09:45 Lactulose (Lactulose Liq) 30 ml ONCE ONCE PO Last administered on 12/19/16 09: 52; Start 12/19/16 at 09:45; Stop 12/19/16 at 09:46; Status DC Insulin Detemir (Levemir Inj) 22 units AC BREAKFAST SQ Last administered on 06:31; Start 12/20/16 at 07:00 Insulin Detemir (Levemir Inj) 24 units HS SQ Last administered on 12/21/16 21: 16; Start 12/20/16 at 21:00 Trazodone HCl (Desyrel) 200 mg HS@23 PO Last administered on 12/21/16 21:54; Start 12/21/16 at 23:00 Date of Insertion: Nov 25, 2016 A/P Assessment and Plan A/P Neurogenic Bladder Sepsis- source likely UTI- ESBL hypotension-resolved Better BP readings- continue Midodrine S/P Tx for UTI - S/p Levaquin and Ertapenem S/P replacement of Kyle catheter by Dr. Meraz- 11/25. On Oxybutynin 5mg bid. urine cath leakage- urology was reconsulted; patient declined catheter exchange- no urological intervention at this time per urology- urine cath needs to be changed later this month. Blood cultures- negative x5 days Diabetes Mellitus: insulin requiring- - reinforced and encourage - Monitor Accu-Cheks, Continue sliding scale insulin.- - continue levemir 22 units subq in am and 26 units subq qhs. -continue to monitor and adjust the regimen as needed. Chronic pain. Home medications baclofen, morphine, oxycodone. continue Oramorph. Insomnia: Home medications Ambien PRN & Trazadone 200 qHS Morbid obesity: Outpatient general surgery referral needed for possible surgical interventions Chronic pressure ulcers: Wound care team ff- . Patient turning himself rigorously Sleep apnea, CPAP at night Anxiety and depression: no homicidal or suicidal ideations Was evaluated by psych in the ER, Felipe acted lifted, did not meet inpatient psychiatric and admission criteria. -Patient has long history of being on psychiatric medication, currently on Lexapro . Previously was on [place] and did not do well with mood on this. -Psychiatry follow-up appreciated. Hyperlipidemia: Continue Lipitor Hypothyroidism: Continue levothyroxine chronic pain - on chronic pain meds- as noted above. Substance use: tox screen on admission significant for opiates, benzos, cannabinoids constipation; laxatives as needed. Full code. On Xarelto -DNR status palliative care following. Discharge Planning difficult discharge. no accepting facility yet. d/w the case management today. Juan Diego Zambrano MD December 22, 2016 11:09
[2016-12-22] MEDS: TOLTERODINE TARTRATE 4 MG CAP LA PO SCH (20:36)
[2016-12-22] MEDS: RIVAROXABAN 20 MG TAB PO SCH (20:37)
[2016-12-22] MEDS: ESCITALOPRAM OXALATE 20 MG TAB PO SCH (20:40)
[2016-12-22] MEDS: traZODone HCL 100 MG TAB PO SCH (23:00)
[2016-12-23] VITALS (10 sets, daily range): BP systolic 94–145; BP diastolic 47–77; PULSE 76–98; RESP 16–20; TEMP 96.1–98.6; O2SAT 86–98
[2016-12-23] MEDS: MORPHINE SULFATE 100 MG CONTROLLED RELEASE TAB PO SCH ×3 (02:00→17:49)
[2016-12-23] MEDS: MORPHINE SULFATE 30 MG CONTROLLED RELEASE TAB PO SCH ×3 (02:00→17:50)
[2016-12-23] MEDS: OXYBUTYNIN CHLORIDE 5 MG TAB PO SCH ×3 (05:15→20:26)
[2016-12-23] MEDS: MIDODRINE 5 MG TAB PO SCH ×3 (05:15→20:26)
[2016-12-23] MEDS: LEVOTHYROXINE SODIUM 50 MCG TAB PO SCH (05:15)
[2016-12-23] MEDS: ONDANSETRON HCL 4 MG/2 ML VIAL IV PUSH PRN (05:22)
[2016-12-23] MEDS: ALPRAZolam 1 MG TAB PO PRN ×2 (06:05→14:46)
[2016-12-23] MEDS: BACLOFEN 20 MG TAB PO PRN ×3 (06:06→20:52)
[2016-12-23] MEDS: INSULIN DETEMIR 100 UNITS/ML VIAL SQ SCH ×2 (06:35→20:22)
[2016-12-23] MEDS: INSULIN ASPART SUPPLEMENTAL SCALE SQ SCH ×4 (06:36→20:17)
--- NOTE | 2016-12-23 08:35 | HHI.PR ---
Subjective Remarks resting comfortably with no distress. had a small BM earlier. had mild nausea earlier which has resolved. Objective Vitals Vital Signs Date Time Temp Pulse Resp B/P Pulse Ox O2 Delivery O2 Flow Rate FiO2 12/23/16 04:51 98 40 12/23/16 04:00 96.1 98 20 145/77 94 12/23/16 00:23 98 40 12/23/16 00:00 Nasal Cannula 2.00 12/23/16 00:00 98.3 84 18 94/54 94 12/22/16 22:00 87 12/22/16 21:00 Nasal Cannula 2.00 12/22/16 20:00 96.6 76 19 91/61 98 12/22/16 16:00 98.1 87 16 96/50 92 12/22/16 12:00 96.9 88 16 99/56 90 12/22/16 09:25 92 21 I/O 12/22/16 12/22/16 12/22/16 12/23/16 12/23/16 12/23/16 07:00 15:00 23:00 07:00 15:00 23:00 Intake Total 760 ml 2166 ml 360 ml 360 ml Output Total 2000 ml 2550 ml 1600 ml 1850 ml Balance -1240 ml -384 ml -1240 ml -1490 ml Intake Oral 760 ml 2166 ml 360 ml 360 ml IV Total 0 ml Output Urine Total 2000 ml 2550 ml 1600 ml 1500 ml Emesis 350 ml # Bowel Movements 1 0 0 1 Result Diagram: 12/19/16 0418 12/19/16 0418 Objective Remarks GENERAL: morbidly obese, in no apparent distress. CARDIOVASCULAR: Regular rate and regular rhythm without murmurs, gallops, or rubs. RESPIRATORY: Clear to auscultation. Breath sounds equal bilaterally. No wheezes , rales, or rhonchi. GASTROINTESTINAL: Abdomen soft, non-tender, nondistended. Normal, active bowel sounds MUSCULOSKELETAL: Extremities without clubbing, cyanosis, or edema. NEURO: Alert & Oriented x4 to person, place, time, situation. Moves all ext x4 Procedures 11/25- S/P flexible cystoscopy with replacement of kyle catheter (Councill catheter) Medications and IVs Current Medications Insulin Human Regular (NovoLIN R INJ) 10 units ONCE ONCE SQ Last administered on 11/10/16 21:05; Start 11/10/16 at 16:00; Stop 11/10/16 at 16:01; Status DC Sodium Chloride (NS Flush) 2 ml UNSCH PRN IV FLUSH FLUSH AFTER USING IV ACCESS Last administered on 11/28/16 07:09; Start 11/10/16 at 21:45 Sodium Chloride (NS Flush) 2 ml BID IV FLUSH Last administered on 12/22/16 20: 32; Start 11/11/16 at 09:00 Naloxone HCl (Narcan Inj) 0.4 mg UNSCH PRN IV SEE LABEL COMMENTS; Start at 21:45 Albuterol Sulfate (Albuterol Neb) 2.5 mg Q6HR ALT NEB PRN NEB SHORTNESS OF BREATH; Start 11/11/16 at 02:00 Alprazolam (Xanax) 2 mg Q6HR PRN PO BELÉN Last administered on 12/23/16 06:05; Start 11/11/16 at 02:00 Ascorbic Acid (Vitamin C) 500 mg BID PO Last administered on 12/22/16 20:47; Start 11/11/16 at 09:00 Atorvastatin Calcium (Lipitor) 40 mg DAILY PO Last administered on 12/22/16 09 :37; Start 11/11/16 at 09:00 Baclofen (Lioresal) 20 mg Q6HR PRN PO MUSCLE SPASM Last administered on 06:06; Start 11/11/16 at 02:00 Bupropion HCl (Wellbutrin Xl 24 Hr) 150 mg DAILY PO ; Start 11/11/16 at 09:00; Status UNV Bupropion HCl (Wellbutrin Sr) 150 mg BID PO Last administered on 11/24/16 10: 23; Start 11/11/16 at 09:00; Stop 11/24/16 at 14:19; Status DC Chlorhexidine Gluconate (Peridex 0.12% Liq) 10 ml BID PRN SWISH-SPIT peridontitis; Start 11/11/16 at 02:00 Clotrimazole (Lotrimin 1% Cream) 1 applic DAILY PRN TOPICAL RASH IN SKIN FOLDS Last administered on 12/05/16 11:50; Start 11/11/16 at 02:00 Collagenase (Santyl Oint) 1 applic Q8HR TOPICAL Last administered on 11/23/16 12:12; Start 11/11/16 at 06:00; Stop 11/23/16 at 12:34; Status DC Escitalopram Oxalate (Lexapro) 20 mg HS PO Last administered on 11/13/16 21:18 ; Start 11/11/16 at 21:00; Stop 11/14/16 at 15:43; Status DC Furosemide (Lasix) 40 mg BID PO Last administered on 11/28/16 08:34; Start at 09:00; Status Hold Insulin Detemir (Levemir Inj) 55 units HS SQ Last administered on 11/19/16 21: 43; Start 11/11/16 at 21:00; Stop 11/19/16 at 22:31; Status DC Levothyroxine Sodium (Synthroid) 50 mcg DAILY@06 PO Last administered on 05:15; Start 11/11/16 at 06:00 Morphine Sulfate (Oramorph Sr) 30 mg Q8H PO Last administered on 12/22/16 12: 04; Start 11/11/16 at 02:00 Morphine Sulfate (Oramorph Sr) 100 mg Q8H PO Last administered on 12/22/16 12: 04; Start 11/11/16 at 02:00 Potassium Chloride (KCl) 20 meq DAILY PO Last administered on 11/16/16 08:47; Start 11/11/16 at 09:00; Status Hold Promethazine HCl (Phenergan) 25 mg Q8HR PRN PO Nausea/Vomiting; Start 11/11/16 at 02:00 Famotidine (Pepcid) 20 mg DAILY PO Last administered on 12/22/16 09:37; Start 11/11/16 at 09:00 Rivaroxaban (Xarelto) 20 mg HS PO Last administered on 12/22/16 20:37; Start 11/11/16 at 21:00 Simethicone (Mylicon Chew) 160 mg ACHS PRN CHEW GAS RETENTION Last administered on 12/20/16 17:53; Start 11/11/16 at 02:00 Trazodone HCl (Desyrel) 200 mg HS PO Last administered on 11/13/16 21:17; Start 11/11/16 at 21:00; Stop 11/14/16 at 10:19; Status DC Zolpidem Tartrate (Ambien) 10 mg HS PO Last administered on 12/09/16 22:44; Start 11/11/16 at 21:00; Stop 12/10/16 at 16:13; Status DC Tolterodine Tartrate (Detrol La) 2 mg HS PO Last administered on 12/13/16 20:57 ; Start 11/11/16 at 21:00; Stop 12/14/16 at 13:31; Status DC Oxycodone HCl (Roxicodone) 30 mg Q4H PRN PO PAIN Last administered on 09:01; Start 11/11/16 at 04:00; Stop 12/04/16 at 11:36; Status DC Hydromorphone HCl 0.5 mg 0.5 mg Q4H PRN IV PUSH breakthrough pain Last administered on 11/16/16 16:41; Start 11/11/16 at 02:15; Stop 11/16/16 at 22:41; Status DC Levofloxacin/ Dextrose (Levaquin 750 Mg Premix Inj) 150 ml @ 100 mls/hr Q24H IV Last administered on 11/14/16 03:44; Start 11/11/16 at 03:00; Stop 11/14/16 at 10:19; Status DC Bupropion HCl (Wellbutrin Sr 12 Hr) 150 mg DAILY PO ; Start 11/11/16 at 09:00; Status Cancel Bupropion HCl (Wellbutrin Sr) 150 mg DAILY PO Last administered on 11/11/16 12 :45; Start 11/11/16 at 09:00; Stop 11/12/16 at 07:22; Status DC Ondansetron HCl (Zofran Inj) 4 mg Q6HR PRN IV PUSH NAUSEA Last administered on 12/23/16 05:22; Start 11/11/16 at 03:15 Dextrose (D50w (Vial) Inj) 25 ml UNSCH PRN IV PUSH HYPOGLYCEMIA-SEE COMMENTS; Start 11/12/16 at 11:45 Glucagon (Glucagon Inj) 1 mg UNSCH PRN OTHER HYPOGLYCEMIA-SEE COMMENTS; Start 11/12/16 at 11:45 Insulin Aspart (NovoLOG SUPPLEMENTAL SCALE) 1 ACHS SLIDING SCALE SQ Last administered on 12/23/16 06:36; Start 11/12/16 at 16:00 Docusate Sodium (Colace) 100 mg BID PO Last administered on 12/09/16 22:45; Start 11/13/16 at 21:00; Stop 12/10/16 at 16:04; Status DC Magnesium Citrate (Citroma Liq) 600 ml Q24H PRN PO CONSTIPATION Last administered on 12/21/16 13:38; Start 11/13/16 at 14:45 Nystatin (Mycostatin Powder) 1 applic BID TOPICAL Last administered on 20:47; Start 11/13/16 at 21:00 Levofloxacin (Levaquin) 500 mg DAILY@11 PO Last administered on 11/21/16 10:53 ; Start 11/15/16 at 11:00; Stop 11/22/16 at 10:59; Status DC Trazodone HCl (Desyrel) 100 mg HS PO Last administered on 11/16/16 20:32; Start 11/14/16 at 21:00; Stop 11/16/16 at 22:40; Status DC Trazodone HCl (Desyrel) 200 mg HS PO Last administered on 12/20/16 21:35; Start 11/17/16 at 21:00; Stop 12/21/16 at 11:44; Status DC Hydromorphone HCl (Dilaudid Pf Inj) 1 mg Q4H PRN IV PUSH breakthrough pain Last administered on 11/29/16 10:31; Start 11/17/16 at 02:15; Stop 11/29/16 at 12:37; Status DC Trazodone HCl (Desyrel) 100 mg ONCE ONCE PO Last administered on 11/16/16 23: 54; Start 11/16/16 at 22:45; Stop 11/16/16 at 22:46; Status DC Acetaminophen (Tylenol) 650 mg Q4H PRN PO Headache, fever Last administered on 12/09/16 08:49; Start 11/18/16 at 17:30 Insulin Detemir (Levemir Inj) 30 units BID SQ Last administered on 11/20/16 09: 20; Start 11/20/16 at 09:00; Stop 11/20/16 at 11:16; Status DC Insulin Aspart (NovoLOG INJ) 6 units TIDAC SQ Last administered on 11/30/16 11 :10; Start 11/20/16 at 08:00; Stop 11/30/16 at 15:15; Status DC Insulin Detemir (Levemir Inj) 35 units BID SQ Last administered on 11/30/16 10 :40; Start 11/20/16 at 21:00; Stop 11/30/16 at 15:16; Status DC Collagenase (Santyl Oint) 1 applic DAILY TOPICAL Last administered on 02:05; Start 11/23/16 at 12:45 Povidone Iodine (Betadine 10% Oint) 1 pkt DAILY TOPICAL ; Start 11/23/16 at 12: 45; Stop 11/23/16 at 18:32; Status DC Povidone Iodine (Betadine 10% Oint) 1 applic DAILY TOPICAL Last administered on 12/22/16 09:38; Start 11/23/16 at 18:32 Insulin Human Regular (NovoLIN R INJ) 10 units ONCE ONCE IV PUSH Last administered on 11/23/16 22:28; Start 11/23/16 at 20:45; Stop 11/23/16 at 20:46 ; Status DC Bupropion HCl 200 mg 200 mg BID PO Last administered on 11/29/16 09:11; Start 11/24/16 at 21:00; Stop 12/10/16 at 16:11; Status DC Lactated Ringer's 1,000 ml @ 30 mls/hr Q24H PRN IV SEE LABEL COMMENTS; Start at 08:30; Stop 11/28/16 at 08:31; Status DC Sodium Chloride (NS 500 ml Inj) 500 ml @ 30 mls/hr [id number] PRN IV SEE LABEL COMMENTS; Start 11/25/16 at 08:30; Stop 11/28/16 at 08:31; Status DC Metoprolol Tartrate (Lopressor) 25 mg ADMINISTRATION PHYSICIAN PRN PO SEE LABEL COMMENTS; Start 11/25/16 at 08:30; Stop 11/28/16 at 08:31; Status DC Povidone Iodine (Betadine 5% Antisepsis Kit) 1 applic ADMINISTRATION PHYSICIAN PRN EACH NARE SEE LABEL COMMENTS; Start 11/25/16 at 08:30; Stop 11/28/16 at 08:31; Status DC Chlorhexidine Gluconate (Chlorhexidine 2% Cloth) 3 pack ADMINISTRATION PHYSICIAN PRN TOPICAL SEE LABEL COMMENTS; Start 11/25/16 at 08:30; Stop 11/28/16 at 08:31; Status DC Insulin Human Regular (NovoLIN R INJ) See Protocol Table ... ADMINISTRATION PHYSICIAN PRN SQ SEE PROTOCOL TABLE; Start 11/25/16 at 08:30; Stop 11/28/16 at 08:31; Status DC Oxybutynin Chloride (Ditropan) 5 mg Q12HR PO Last administered on 12/14/16 09: 23; Start 11/28/16 at 14:00; Stop 12/14/16 at 13:31; Status DC Hydromorphone HCl (Dilaudid Pf Inj) 1.5 mg Q4H PRN IV PUSH breakthrough pain Last administered on 12/04/16 11:21; Start 11/29/16 at 14:15; Stop 12/04/16 at 11:36; Status DC Miscellaneous Medication (ASP Crit: Doc allergy to Penicillin/ Cephalosp) 1 UNSCH X1 PRN .XX PHARMACY DOCUMENTATION; Start 11/29/16 at 15:30; Stop at 15:29; Status DC Miscellaneous Medication 1 1 UNSCH X1 PRN XX PHARMACY DOCUMENTATION; Start at 15:30; Stop 11/30/16 at 15:29; Status DC Meropenem/Sodium Chloride (Merrem Inj/NS Inj) 100 ml @ 200 mls/hr Q8H IV Last administered on 12/01/16 09:21; Start 11/29/16 at 16:00; Stop 12/01/16 at 14:34 ; Status DC Miscellaneous Medication 1 1 UNSCH X1 PRN XX PHARMACY DOCUMENTATION; Start at 15:30; Stop 11/30/16 at 15:29; Status DC Linezolid 300 ml @ 300 mls/hr Q12H IV Last administered on 12/01/16 04:12; Start 11/29/16 at 16:00; Stop 12/01/16 at 14:34; Status DC Fluconazole/ Sodium Chloride (Diflucan 400 Mg Premix Bag) 200 ml @ 100 mls/hr Q24H IV Last administered on 11/30/16 18:42; Start 11/29/16 at 18:00; Stop at 14:34; Status DC Insulin Aspart (NovoLOG INJ) 12 units TIDAC SQ Last administered on 11/30/16 18:43; Start 11/30/16 at 17:00; Status Hold Insulin Detemir (Levemir Inj) 40 units BID SQ Last administered on 12/01/16 09 :23; Start 11/30/16 at 21:00; Stop 12/01/16 at 17:30; Status DC Midodrine (Proamatine) 10 mg Q8HR PO Last administered on 12/23/16 05:15; Start 11/30/16 at 21:00 Miscellaneous Medication (ASP Crit: Doc ESBL, MDR A baumannii or P aer) 1 UNSCH X1 PRN .XX PHARMACY DOCUMENTATION; Start 12/01/16 at 14:45; Stop 12/02/16 at 14 :44; Status DC Miscellaneous Medication 1 1 UNSCH X1 PRN XX PHARMACY DOCUMENTATION; Start at 14:45; Stop 12/02/16 at 14:44; Status DC Ertapenem/Sodium Chloride (INVanz INJ/NS Inj) 100 ml @ 200 mls/hr Q24H IV Last administered on 12/12/16 17:14; Start 12/01/16 at 16:00; Stop 12/13/16 at 09 :00; Status DC Insulin Detemir 20 units 20 units BID SQ Last administered on 12/16/16 21:05; Start 12/01/16 at 21:00; Stop 12/17/16 at 08:49; Status DC Sodium Chloride (NS 1000 ml Inj) 1,000 ml @ 1,000 mls/hr Q1H IV Last administered on 12/02/16 01:00; Start 12/02/16 at 00:00; Stop 12/02/16 at 01:59 ; Status DC Albumin Human (Albumin 5% Inj) 25 gm ONCE ONCE IV Last administered on 00:30; Start 12/02/16 at 00:00; Stop 12/02/16 at 00:07; Status DC Hydromorphone HCl (Dilaudid Pf Inj) 1 mg Q4H PRN IV PUSH breakthrough pain; Start 12/04/16 at 11:45; Stop 12/04/16 at 11:45; Status DC Hydromorphone HCl (Dilaudid Pf Inj) 1 mg Q4H PRN IV PUSH breakthrough pain Last administered on 12/06/16 12:22; Start 12/04/16 at 14:15; Stop 12/06/16 at 12:32; Status DC Oxycodone HCl (Roxicodone) 30 mg Q4H PRN PO PAIN SCALE 8 TO 10 Last administered on 12/23/16 06:06; Start 12/06/16 at 12:30 Bupropion HCl (Wellbutrin Sr) 150 mg DAILY PO Last administered on 12/22/16 09 :37; Start 12/10/16 at 16:15 Escitalopram Oxalate (Lexapro) 20 mg HS PO Last administered on 12/22/16 20:40 ; Start 12/10/16 at 21:00 Senna/Docusate Sodium (Erin-Colace) 1 tab BID PO Last administered on 20:40; Start 12/10/16 at 21:00 Zolpidem Tartrate (Ambien) 5 mg HS PRN PO INSOMNIA Last administered on 21:52; Start 12/10/16 at 21:00 Multi-Ingredient Ointment (Eucerin Cream) 1 applic ONCE ONCE TOPICAL Last administered on 12/11/16 00:54; Start 12/11/16 at 00:00; Stop 12/11/16 at 00:01 ; Status DC Diphenhydramine HCl (Benadryl 2% Cream) 1 applic TID PRN TOPICAL ITCHING Last administered on 12/11/16 16:09; Start 12/11/16 at 08:15 Trazodone HCl (Desyrel) 200 mg HS PO ; Start 12/11/16 at 21:00; Stop 12/21/16 at 11:49; Status DC Gabapentin (Neurontin) 300 mg TID PO Last administered on 12/22/16 12:04; Start 12/12/16 at 18:00 Oxybutynin Chloride (Ditropan) 5 mg Q8HR PO Last administered on 12/23/16 05: 15; Start 12/14/16 at 14:00 Tolterodine Tartrate (Detrol La) 4 mg HS PO Last administered on 12/22/16 20: 36; Start 12/14/16 at 21:00 Balanced Salt Solution (Bss Opth Soln) 15 applic STK-MED ONCE .ROUTE ; Start 12/15/16 at 08:04; Stop 12/15/16 at 08:05; Status DC Insulin Detemir (Levemir Inj) 20 units AC BREAKFAST SQ Last administered on 07:00; Start 12/18/16 at 07:00; Stop 12/19/16 at 09:36; Status DC Insulin Detemir (Levemir Inj) 22 units HS SQ Last administered on 12/19/16 22: 37; Start 12/17/16 at 21:00; Stop 12/20/16 at 11:37; Status DC Polyethylene Glycol (Miralax) 17 gm DAILY PRN PO CONSTIPATION Last administered on 12/19/16 09:52; Start 12/19/16 at 09:45 Lactulose (Lactulose Liq) 30 ml ONCE ONCE PO Last administered on 12/19/16 09: 52; Start 12/19/16 at 09:45; Stop 12/19/16 at 09:46; Status DC Insulin Detemir (Levemir Inj) 22 units AC BREAKFAST SQ Last administered on 06:35; Start 12/20/16 at 07:00 Insulin Detemir (Levemir Inj) 24 units HS SQ Last administered on 12/21/16 21: 16; Start 12/20/16 at 21:00; Stop 12/22/16 at 11:10; Status DC Trazodone HCl (Desyrel) 200 mg HS@23 PO Last administered on 12/21/16 21:54; Start 12/21/16 at 23:00 Insulin Detemir (Levemir Inj) 26 units HS SQ Last administered on 12/22/16 20: 46; Start 12/22/16 at 21:00 Date of Insertion: Nov 25, 2016 A/P Assessment and Plan A/P Neurogenic Bladder Sepsis- source likely UTI- ESBL hypotension-resolved Better BP readings- continue Midodrine S/P Tx for UTI - S/p Levaquin and Ertapenem S/P replacement of Kyle catheter by Dr. Meraz- 11/25. On Oxybutynin 5mg bid. urine cath leakage- urology was reconsulted ( 12/14); patient declined catheter exchange- no urological intervention at this time per urology- urine cath needs to be changed later this month. Blood cultures- negative . Diabetes Mellitus: insulin requiring- - reinforced and encourage - Monitor Accu-Cheks, Continue sliding scale insulin.- - changed levemir to 22 units subq in am and 26 units subq qhs. -continue to monitor and adjust the regimen as needed. Chronic pain. Home medications baclofen, morphine, oxycodone. continue Oramorph. Insomnia: Home medications Ambien PRN & Trazadone 200 qHS Morbid obesity: Outpatient general surgery referral needed for possible surgical interventions Chronic pressure ulcers: Wound care team ff- . Patient turning himself rigorously Sleep apnea, CPAP at night Anxiety and depression: no homicidal or suicidal ideations Was evaluated by psych in the ER, Felipe acted lifted, did not meet inpatient psychiatric and admission criteria. -Patient has long history of being on psychiatric medication, currently on Lexapro . Previously was on [place] and did not do well with mood on this. -Psychiatry follow-up appreciated. Hyperlipidemia: Continue Lipitor Hypothyroidism: Continue levothyroxine chronic pain - on chronic pain meds- as noted above. Substance use: tox screen on admission significant for opiates, benzos, cannabinoids constipation; laxatives as needed. Full code. On Xarelto -DNR status palliative care following. Discharge Planning difficult discharge. no accepting facility yet. d/w the case management today. Juan Diego Zambrano MD December 23, 2016 08:35
[2016-12-23] MEDS: POVIDONE IODINE 10% OINT 30 GM TUBE TOPICAL SCH (09:00)
[2016-12-23] MEDS: COLLAGENASE OINT 30 GM TUBE TOPICAL SCH (09:00)
[2016-12-23] MEDS: NYSTATIN 100,000 U/GM PWD 15 GM BTL TOPICAL SCH ×2 (09:00→20:27)
[2016-12-23] MEDS: buPROPion HCL 150 MG SUSTAINED RELEASE TAB PO SCH (10:28)
[2016-12-23] MEDS: ATORVASTATIN 40 MG TAB PO SCH (10:29)
[2016-12-23] MEDS: DOCUSATE SODIUM 50 MG/SENNA 8.6 MG TAB PO SCH ×2 (10:29→20:26)
[2016-12-23] MEDS: ASCORBIC ACID 500 MG TAB PO SCH ×2 (10:29→20:26)
[2016-12-23] MEDS: GABAPENTIN 300 MG CAP PO SCH ×3 (10:29→17:49)
[2016-12-23] MEDS: FAMOTIDINE 20 MG TAB PO SCH (10:30)
[2016-12-23] MEDS: SODIUM CHLORIDE 0.9% FLUSH 10 ML FLUSH IV FLUSH SCH ×2 (10:31→20:27)
[2016-12-23] MEDS: ESCITALOPRAM OXALATE 20 MG TAB PO SCH (20:26)
[2016-12-23] MEDS: RIVAROXABAN 20 MG TAB PO SCH (20:26)
[2016-12-23] MEDS: TOLTERODINE TARTRATE 4 MG CAP LA PO SCH (20:27)
[2016-12-24] MEDS: ZOLPIDEM TARTRATE 5 MG TAB PO PRN ×2 (01:05→23:00)
[2016-12-24] MEDS: ALPRAZolam 1 MG TAB PO PRN ×3 (01:05→23:06)
[2016-12-24] MEDS: traZODone HCL 100 MG TAB PO SCH ×2 (01:08→23:00)
[2016-12-24] MEDS: BACLOFEN 20 MG TAB PO PRN ×3 (02:52→21:08)
[2016-12-24] MEDS: MORPHINE SULFATE 30 MG CONTROLLED RELEASE TAB PO SCH ×3 (02:52→17:43)
[2016-12-24] MEDS: MORPHINE SULFATE 100 MG CONTROLLED RELEASE TAB PO SCH ×3 (02:52→17:43)
[2016-12-24 04:00] VITALS: BP 110/55; PULSE 100; RESP 18; TEMP 98; O2SAT 96
[2016-12-24] MEDS: LEVOTHYROXINE SODIUM 50 MCG TAB PO SCH (05:16)
[2016-12-24] MEDS: OXYBUTYNIN CHLORIDE 5 MG TAB PO SCH ×3 (05:17→22:54)
[2016-12-24] MEDS: MIDODRINE 5 MG TAB PO SCH ×3 (05:17→22:55)
[2016-12-24] MEDS: INSULIN DETEMIR 100 UNITS/ML VIAL SQ SCH ×2 (05:21→20:37)
[2016-12-24] MEDS: INSULIN ASPART SUPPLEMENTAL SCALE SQ SCH ×4 (05:23→20:47)
[2016-12-24 08:00] VITALS: BP 101/50; PULSE 103; RESP 18; TEMP 99.1; O2SAT 93
[2016-12-24] MEDS: buPROPion HCL 150 MG SUSTAINED RELEASE TAB PO SCH (08:23)
[2016-12-24] MEDS: ATORVASTATIN 40 MG TAB PO SCH (08:23)
[2016-12-24] MEDS: DOCUSATE SODIUM 50 MG/SENNA 8.6 MG TAB PO SCH ×2 (08:23→20:30)
[2016-12-24] MEDS: GABAPENTIN 300 MG CAP PO SCH ×3 (08:23→17:43)
[2016-12-24] MEDS: FAMOTIDINE 20 MG TAB PO SCH (08:24)
[2016-12-24] MEDS: ASCORBIC ACID 500 MG TAB PO SCH ×2 (08:24→20:29)
[2016-12-24] MEDS: POVIDONE IODINE 10% OINT 30 GM TUBE TOPICAL SCH (08:27)
[2016-12-24] MEDS: SODIUM CHLORIDE 0.9% FLUSH 10 ML FLUSH IV FLUSH SCH ×2 (08:27→20:31)
[2016-12-24] MEDS: NYSTATIN 100,000 U/GM PWD 15 GM BTL TOPICAL SCH ×2 (08:27→20:32)
[2016-12-24] MEDS: COLLAGENASE OINT 30 GM TUBE TOPICAL SCH (08:28)
[2016-12-24 09:05] VITALS: O2SAT 98
--- NOTE | 2016-12-24 10:02 | HHI.PR ---
Subjective Remarks Follow up for paraplegia, chronic pain, neurogenic bladder. Patient seen and examined. Patient complains of headache due to falling asleep without the BIPAP last night, states he "usually just sleeps it off and it will go away". He does state that he has some intermittent bladder discomfort. Denies any recent fever , chills, cough, shortness of breath or chest pain or nausea. Objective Vitals Vital Signs Date Time Temp Pulse Resp B/P Pulse Ox O2 Delivery O2 Flow Rate FiO2 12/24/16 09:05 Full Face Mask 40.0 12/24/16 09:05 98 BiPAP 40 12/24/16 08:00 99.1 103 18 101/50 93 12/24/16 04:00 98.0 100 18 110/55 96 12/23/16 23:55 97.3 83 19 126/55 96 12/23/16 20:53 95 21 12/23/16 20:00 96.2 87 18 115/59 95 12/23/16 19:45 Room Air 12/23/16 19:06 22 12/23/16 19:06 22 12/23/16 16:00 97.6 78 16 97/47 96 12/23/16 12:00 97.2 76 16 95/53 95 12/23/16 11:37 20 I/O 12/23/16 12/23/16 12/23/16 12/24/16 12/24/16 12/24/16 07:00 15:00 23:00 07:00 15:00 23:00 Intake Total 360 ml 360 ml 360 ml 240 ml Output Total 1850 ml 1800 ml 1200 ml 2100 ml Balance -1490 ml -1440 ml -840 ml -1860 ml Intake Oral 360 ml 360 ml 360 ml 240 ml IV Total 0 ml 0 ml Output Urine Total 1500 ml 1800 ml 1200 ml 2100 ml Emesis 350 ml # Bowel Movements 1 0 0 1 Objective Remarks GENERAL: Morbidly obese, well-developed patient lying in bed on BIPAP. CARDIOVASCULAR: Regular rate and rhythm. S1, S2 noted. No murmur appreciated. RESPIRATORY: No accessory muscle use. Distant breath sounds noted. Breath sounds equal bilaterally. GASTROINTESTINAL: Abdomen round, obese, soft, nondistended. Normoactive bowel sounds x4. NEUROLOGICAL: Awake and alert. No obvious cranial nerve deficits. Motor grossly within normal limits. Normal speech. PSYCHIATRIC: Appropriate mood and affect; insight and judgment normal. Procedures 11/25- S/P flexible cystoscopy with replacement of kyle catheter (Councill catheter) Urinary Catheter: Yes Assessment to: Continue Date of Insertion: Nov 25, 2016 Vascular Central Line Catheter: No A/P Problem List: (1) UTI (urinary tract infection) ICD Code: N39.0 Status: Acute (2) Chronic pain ICD Code: G89.29 Status: Chronic (3) Type 2 diabetes mellitus ICD Code: E11.9 Status: Chronic (4) Morbidly obese ICD Code: E66.01 Status: Chronic (5) Depression ICD Code: F32.9 Status: Chronic (6) Pressure ulcer ICD Code: L89.90 Status: Chronic (7) Sleep apnea ICD Code: G47.30 Status: Chronic (8) Hypothyroidism ICD Code: E03.9 Status: Chronic Assessment and Plan Neurogenic Bladder Sepsis source likely urinary tract infection, ESBL Hypotension, resolved. - Blood pressure stable. Continue Midodrine - Status post Levaquin and Ertapenem for UTI. - Kyle catheter place by Dr. Meraz on 11/25. Plan for replacement tomorrow 12/25, reconsult urology. Continue Oxybutynin 5mg bid. - Status post urine cath leakage. Urology was reconsulted on 12/14. Patient declined catheter exchange. No urological intervention at this time per urology. Plan to change FC tomorrow. - Blood cultures NGTD. Diabetes Mellitus: insulin requiring, reinforced and encourage. - Monitor Accu-Cheks, continue sliding scale insulin. - Continue Levemir 22 units subq in am and 26 units subq qhs. - Continue to monitor and adjust the regimen as needed. Chronic pain. Home medications baclofen, morphine, oxycodone. Continue Oramorph. Sleep apnea Insomnia - CPAP at night - Continue home medications Ambien PRN & Trazadone 200 qHS. BIPAP at night. Morbid obesity: Outpatient general surgery referral needed for possible surgical interventions Chronic pressure ulcers: Wound care team following. Patient turning himself. Anxiety and depression: no homicidal or suicidal ideations - Was evaluated by psych in the ER, Felipe acted lifted, did not meet inpatient psychiatric and admission criteria. - Patient has long history of being on psychiatric medication, currently on Lexapro. Previously was on [place] and did not do well with mood on this. - Psychiatry follow-up appreciated. Hyperlipidemia: Continue Lipitor. Hypothyroidism: Continue levothyroxine. Substance use: tox screen on admission significant for opiates, benzos, cannabinoids. Constipation: Last BM documented today 12/24. Laxatives available as needed. DVT prophylaxis: On Xarelto DNR status Palliative care following. Written by Vida Canales, acting as scribe for Dr. Malik on 12/24/16 at 09:50. This note was transcribed by scribe Vida Canales. I, Dr. Mireya Malik personally performed the history, physical exam, and medical decision making; and confirmed the accuracy of the information in the transcribed note. Authenticated by Dr. Mireya Malik on 12/24/16 at 09:50. Discharge Planning difficult discharge. no accepting facility yet. Problem Qualifiers (1) Morbidly obese: Qualified Code: E66.01 - Morbid obesity, unspecified obesity type (2) Pressure ulcer: Vida Canales December 24, 2016 10:02 Mireya Malik MD December 24, 2016 10:56
[2016-12-24 12:00] VITALS: BP 104/55; PULSE 95; RESP 17; TEMP 99.7; O2SAT 93
[2016-12-24 16:00] VITALS: BP 97/50; PULSE 88; RESP 17; TEMP 97.7; O2SAT 92
[2016-12-24 20:00] VITALS: BP 132/67; PULSE 98; RESP 22; TEMP 97.9; O2SAT 94
[2016-12-24] MEDS: ESCITALOPRAM OXALATE 20 MG TAB PO SCH (20:29)
[2016-12-24] MEDS: RIVAROXABAN 20 MG TAB PO SCH (20:29)
[2016-12-24] MEDS: TOLTERODINE TARTRATE 4 MG CAP LA PO SCH (20:48)
[2016-12-25] VITALS (7 sets, daily range): BP systolic 97–134; BP diastolic 48–93; PULSE 84–100; RESP 17–22; TEMP 96.2–97.5; O2SAT 93–99
[2016-12-25] MEDS: MORPHINE SULFATE 30 MG CONTROLLED RELEASE TAB PO SCH ×3 (02:01→18:06)
[2016-12-25] MEDS: MORPHINE SULFATE 100 MG CONTROLLED RELEASE TAB PO SCH ×3 (02:01→18:06)
[2016-12-25] MEDS: COLLAGENASE OINT 30 GM TUBE TOPICAL SCH ×2 (05:17→08:16)
[2016-12-25] MEDS: INSULIN DETEMIR 100 UNITS/ML VIAL SQ SCH ×2 (05:54→21:08)
[2016-12-25] MEDS: INSULIN ASPART SUPPLEMENTAL SCALE SQ SCH ×4 (05:55→21:09)
[2016-12-25] MEDS: OXYBUTYNIN CHLORIDE 5 MG TAB PO SCH ×3 (05:57→21:02)
[2016-12-25] MEDS: MIDODRINE 5 MG TAB PO SCH ×3 (05:57→22:00)
[2016-12-25] MEDS: BACLOFEN 20 MG TAB PO PRN ×2 (05:57→21:02)
[2016-12-25] MEDS: ALPRAZolam 1 MG TAB PO PRN (05:58)
[2016-12-25] MEDS: LEVOTHYROXINE SODIUM 50 MCG TAB PO SCH (05:58)
[2016-12-25] MEDS: FAMOTIDINE 20 MG TAB PO SCH (08:13)
[2016-12-25] MEDS: ASCORBIC ACID 500 MG TAB PO SCH ×2 (08:13→21:03)
[2016-12-25] MEDS: buPROPion HCL 150 MG SUSTAINED RELEASE TAB PO SCH (08:13)
[2016-12-25] MEDS: LACTULOSE SYRUP 20 GM/30 ML CUP PO PRN (08:13)
[2016-12-25] MEDS: POLYETHYLENE GLYCOL 17 GM PKG PO PRN (08:13)
[2016-12-25] MEDS: GABAPENTIN 300 MG CAP PO SCH ×3 (08:13→18:06)
[2016-12-25] MEDS: ATORVASTATIN 40 MG TAB PO SCH (08:13)
[2016-12-25] MEDS: DOCUSATE SODIUM 50 MG/SENNA 8.6 MG TAB PO SCH ×2 (08:13→21:23)
[2016-12-25] MEDS: SODIUM CHLORIDE 0.9% FLUSH 10 ML FLUSH IV FLUSH SCH ×2 (08:14→21:04)
[2016-12-25] MEDS: POVIDONE IODINE 10% OINT 30 GM TUBE TOPICAL SCH (08:14)
[2016-12-25] MEDS: NYSTATIN 100,000 U/GM PWD 15 GM BTL TOPICAL SCH ×2 (08:15→21:00)
--- NOTE | 2016-12-25 11:55 | HHI.PR ---
Subjective Remarks feels tired, was woken up at 4am for vitals and couldn't sleep after that. not too happy about not being able to get double portions other than for the meats. Objective Vitals Vital Signs Date Time Temp Pulse Resp B/P Pulse Ox O2 Delivery O2 Flow Rate FiO2 12/25/16 08:00 97.2 97 18 114/53 93 12/25/16 05:59 96.7 96 22 134/58 93 12/25/16 00:00 96.2 98 22 114/55 94 12/24/16 20:00 97.9 98 22 132/67 94 12/24/16 16:00 97.7 88 17 97/50 92 12/24/16 12:00 99.7 95 17 104/55 93 I/O 12/24/16 12/24/16 12/24/16 12/25/16 12/25/16 12/25/16 07:00 15:00 23:00 07:00 15:00 23:00 Intake Total 240 ml 1015 ml 480 ml 720 ml Output Total 2100 ml 1650 ml 2450 ml 3000 ml Balance -1860 ml -635 ml -1970 ml -2280 ml Intake Oral 240 ml 1015 ml 480 ml 720 ml IV Total 0 ml Output Urine Total 2100 ml 1650 ml 2450 ml 3000 ml # Bowel Movements 1 0 0 0 Objective Remarks GENERAL: Morbidly obese, well-developed patient lying in bed CARDIOVASCULAR: Regular rate and rhythm. S1, S2 noted. No murmur appreciated. RESPIRATORY: No accessory muscle use. Distant breath sounds noted. Breath sounds equal bilaterally. GASTROINTESTINAL: Abdomen round, obese, soft, nondistended. Normoactive bowel sounds x4. NEUROLOGICAL: Awake and alert. No obvious cranial nerve deficits. Motor grossly within normal limits. Normal speech. PSYCHIATRIC: Appropriate mood and affect; insight and judgment normal. Procedures 11/25- S/P flexible cystoscopy with replacement of kyle catheter (Councill catheter) Date of Insertion: Nov 25, 2016 A/P Problem List: (1) UTI (urinary tract infection) ICD Code: N39.0 Status: Acute (2) Chronic pain ICD Code: G89.29 Status: Chronic (3) Type 2 diabetes mellitus ICD Code: E11.9 Status: Chronic (4) Morbidly obese ICD Code: E66.01 Status: Chronic (5) Depression ICD Code: F32.9 Status: Chronic (6) Pressure ulcer ICD Code: L89.90 Status: Chronic (7) Sleep apnea ICD Code: G47.30 Status: Chronic (8) Hypothyroidism ICD Code: E03.9 Status: Chronic Assessment and Plan Neurogenic Bladder Sepsis source likely urinary tract infection, ESBL Hypotension, resolved. - Blood pressure stable. Continue Midodrine - Status post Levaquin and Ertapenem for UTI. - Kyle catheter place by Dr. Meraz on 11/25. Plan for replacement today , reconsult urology. Continue Oxybutynin 5mg bid. - Status post urine cath leakage. Urology was reconsulted on 12/14. Patient declined catheter exchange. No urological intervention at this time per urology. - Blood cultures NGTD. Diabetes Mellitus: insulin requiring, reinforced and encourage. - Monitor Accu-Cheks, continue sliding scale insulin. - increased Levemir 26 units subq in am and continue 26 units subq qhs. - Continue to monitor and adjust the regimen as needed. Chronic pain. Home medications baclofen, morphine, oxycodone. Continue Oramorph. Sleep apnea Insomnia - CPAP at night - Continue home medications Ambien PRN & Trazadone 200 qHS. BIPAP at night. Morbid obesity: Outpatient general surgery referral needed for possible surgical interventions Chronic pressure ulcers: Wound care team following. Patient turning himself. Anxiety and depression: no homicidal or suicidal ideations - Was evaluated by psych in the ER, Felipe acted lifted, did not meet inpatient psychiatric and admission criteria. - Patient has long history of being on psychiatric medication, currently on Lexapro. Previously was on [place] and did not do well with mood on this. - Psychiatry follow-up appreciated. Hyperlipidemia: Continue Lipitor. Hypothyroidism: Continue levothyroxine. Substance use: tox screen on admission significant for opiates, benzos, cannabinoids. Constipation: Last BM documented 12/24. Laxatives available as needed. DVT prophylaxis: On Xarelto DNR status Palliative care following. Written by Vida Canales, acting as scribe for Dr. Malik on 12/24/16 at 09:50. This note was transcribed by scribe Vida Canales. I, Dr. Mireya Malik personally performed the history, physical exam, and medical decision making; and confirmed the accuracy of the information in the transcribed note. Authenticated by Dr. Mireya Malik on 12/24/16 at 09:50. Discharge Planning difficult discharge. no accepting facility yet. Problem Qualifiers (1) Morbidly obese: Qualified Code: E66.01 - Morbid obesity, unspecified obesity type (2) Pressure ulcer: Mireya Malik MD December 25, 2016 11:55
--- NOTE | 2016-12-25 18:26 | HHI.PR ---
Subjective Patient symptoms today -Plan for catheter exchange this week -Last cath change was aprox [address] Meraz Objective Vital Signs Vital Signs Date Time Temp Pulse Resp B/P Pulse Ox O2 Delivery O2 Flow Rate FiO2 12/25/16 16:00 96.9 86 17 105/55 99 12/25/16 12:00 96.7 84 17 97/48 93 12/25/16 08:00 97.2 97 18 114/53 93 12/25/16 05:59 96.7 96 22 134/58 93 12/25/16 00:00 96.2 98 22 114/55 94 12/24/16 20:00 97.9 98 22 132/67 94 Intake & Output 12/25/16 12/25/16 06:59 18:59 Intake Total 1200 ml 1010 ml Output Total 5450 ml 2050 ml Balance -4250 ml -1040 ml Intake Oral 1200 ml 1010 ml Output Urine Total 5450 ml 2050 ml # Bowel Movements 0 0 Vinh Baez MD December 25, 2016 18:26
[2016-12-25] MEDS: ESCITALOPRAM OXALATE 20 MG TAB PO SCH (21:02)
[2016-12-25] MEDS: TOLTERODINE TARTRATE 4 MG CAP LA PO SCH (21:04)
[2016-12-25] MEDS: RIVAROXABAN 20 MG TAB PO SCH (21:04)
[2016-12-25] MEDS: MAGNESIUM CITRATE SOLN 300 ML BTL PO PRN (21:13)
[2016-12-25] MEDS: ONDANSETRON HCL 4 MG/2 ML VIAL IV PUSH PRN (21:22)
[2016-12-25] MEDS: SIMETHICONE 80 MG CHEWABLE TAB CHEW PRN (21:23)
[2016-12-25] MEDS: traZODone HCL 100 MG TAB PO SCH (23:00)
[2016-12-26] MEDS: MORPHINE SULFATE 100 MG CONTROLLED RELEASE TAB PO SCH ×3 (02:00→17:50)
[2016-12-26] MEDS: MORPHINE SULFATE 30 MG CONTROLLED RELEASE TAB PO SCH ×3 (02:00→17:50)
[2016-12-26] MEDS: LEVOTHYROXINE SODIUM 50 MCG TAB PO SCH (06:00)
[2016-12-26] MEDS: MIDODRINE 5 MG TAB PO SCH ×3 (06:00→21:20)
[2016-12-26] MEDS: OXYBUTYNIN CHLORIDE 5 MG TAB PO SCH ×3 (06:00→21:19)
[2016-12-26] MEDS: DOCUSATE SODIUM 50 MG/SENNA 8.6 MG TAB PO SCH ×2 (06:02→21:19)
[2016-12-26] MEDS: INSULIN DETEMIR 100 UNITS/ML VIAL SQ SCH ×2 (06:09→21:00)
[2016-12-26] MEDS: ONDANSETRON HCL 4 MG/2 ML VIAL IV PUSH PRN ×2 (06:11→17:08)
[2016-12-26] MEDS: INSULIN ASPART SUPPLEMENTAL SCALE SQ SCH ×4 (06:36→21:00)
[2016-12-26 08:00] VITALS: BP 120/59; PULSE 88; RESP 16; TEMP 97; O2SAT 98
[2016-12-26] MEDS: LACTULOSE SYRUP 20 GM/30 ML CUP PO PRN (10:17)
[2016-12-26] MEDS: POLYETHYLENE GLYCOL 17 GM PKG PO PRN (10:17)
[2016-12-26] MEDS: COLLAGENASE OINT 30 GM TUBE TOPICAL SCH (10:18)
[2016-12-26] MEDS: FAMOTIDINE 20 MG TAB PO SCH (10:18)
[2016-12-26] MEDS: buPROPion HCL 150 MG SUSTAINED RELEASE TAB PO SCH (10:18)
[2016-12-26] MEDS: GABAPENTIN 300 MG CAP PO SCH ×3 (10:18→17:50)
[2016-12-26] MEDS: ATORVASTATIN 40 MG TAB PO SCH (10:18)
[2016-12-26] MEDS: ASCORBIC ACID 500 MG TAB PO SCH ×2 (10:18→21:18)
[2016-12-26] MEDS: NYSTATIN 100,000 U/GM PWD 15 GM BTL TOPICAL SCH ×2 (10:19→21:19)
[2016-12-26] MEDS: SODIUM CHLORIDE 0.9% FLUSH 10 ML FLUSH IV FLUSH SCH ×2 (10:19→21:00)
[2016-12-26] MEDS: POVIDONE IODINE 10% OINT 30 GM TUBE TOPICAL SCH (10:19)
[2016-12-26 10:30] VITALS: O2SAT 92
--- NOTE | 2016-12-26 11:37 | HHI.PR ---
Subjective Remarks Pt feels constipated and is frustrated that he hasn't had a large BM. states he has been having very small one and does feel the urge to go but has difficulty. passing flatus. no other complaints today Objective Vitals Vital Signs Date Time Temp Pulse Resp B/P Pulse Ox O2 Delivery O2 Flow Rate FiO2 12/26/16 08:00 97.0 88 16 120/59 98 12/25/16 23:54 97.5 99 20 131/93 93 12/25/16 20:00 97.5 100 22 133/64 94 12/25/16 16:00 96.9 86 17 105/55 99 12/25/16 12:00 96.7 84 17 97/48 93 I/O 12/25/16 12/25/16 12/25/16 12/26/16 12/26/16 12/26/16 07:00 15:00 23:00 07:00 15:00 23:00 Intake Total 720 ml 1010 ml 480 ml 720 ml Output Total 3000 ml 2050 ml 1050 ml 2900 ml Balance -2280 ml -1040 ml -570 ml -2180 ml Intake Oral 720 ml 1010 ml 480 ml 720 ml Output Urine Total 3000 ml 2050 ml 1050 ml 2900 ml # Bowel Movements 0 0 0 0 Objective Remarks GENERAL: Morbidly obese, well-developed patient lying in bed CARDIOVASCULAR: Regular rate and rhythm. S1, S2 noted. No murmur appreciated. RESPIRATORY: No accessory muscle use. Distant breath sounds noted. Breath sounds equal bilaterally. GASTROINTESTINAL: Abdomen round, obese, soft, nondistended. some discomfort w deep palpation of the left lower quadrant no guarding or rebound NEUROLOGICAL: Awake and alert. No obvious cranial nerve deficits. Motor grossly within normal limits. Normal speech. PSYCHIATRIC: Appropriate mood and affect; insight and judgment normal. Procedures 11/25- S/P flexible cystoscopy with replacement of kyle catheter (Councill catheter) Date of Insertion: Nov 25, 2016 A/P Problem List: (1) UTI (urinary tract infection) ICD Code: N39.0 Status: Acute (2) Chronic pain ICD Code: G89.29 Status: Chronic (3) Type 2 diabetes mellitus ICD Code: E11.9 Status: Chronic (4) Morbidly obese ICD Code: E66.01 Status: Chronic (5) Depression ICD Code: F32.9 Status: Chronic (6) Pressure ulcer ICD Code: L89.90 Status: Chronic (7) Sleep apnea ICD Code: G47.30 Status: Chronic (8) Hypothyroidism ICD Code: E03.9 Status: Chronic Assessment and Plan Neurogenic Bladder Sepsis source likely urinary tract infection, ESBL Hypotension, resolved. - Blood pressure stable. Continue Midodrine - Status post Levaquin and Ertapenem for UTI. - Kyle catheter place by Dr. Meraz on 11/25. to be replaced by urology sometime this week. Continue Oxybutynin 5mg bid. - Status post urine cath leakage. Urology was reconsulted on 12/14. Patient declined catheter exchange. No urological intervention at this time per urology. - Blood cultures NGTD. Diabetes Mellitus: insulin requiring, reinforced and encourage. - Monitor Accu-Cheks, continue sliding scale insulin. - on Levemir 26 units subq in am and 26 units subq qhs. - Continue to monitor and adjust the regimen as needed. Chronic pain. Home medications baclofen, morphine, oxycodone. Continue Oramorph. Sleep apnea Insomnia - CPAP at night - Continue home medications Ambien PRN & Trazadone 200 qHS. BIPAP at night. Morbid obesity: Outpatient general surgery referral needed for possible surgical interventions Chronic pressure ulcers: Wound care team following. Patient turning himself. Anxiety and depression: no homicidal or suicidal ideations - Was evaluated by psych in the ER, Felipe acted lifted, did not meet inpatient psychiatric and admission criteria. - Patient has long history of being on psychiatric medication, currently on Lexapro. Previously was on [place] and did not do well with mood on this. - Psychiatry follow-up appreciated. Hyperlipidemia: Continue Lipitor. Hypothyroidism: Continue levothyroxine. Substance use: tox screen on admission significant for opiates, benzos, cannabinoids. Constipation: Laxatives available as needed. will add fleet enema as needed as well. DVT prophylaxis: On Xarelto DNR status Palliative care following. Discharge Planning difficult discharge. no accepting facility yet. Problem Qualifiers (1) Morbidly obese: Qualified Code: E66.01 - Morbid obesity, unspecified obesity type (2) Pressure ulcer: Mireya Malik MD December 26, 2016 11:37
[2016-12-26] MEDS ORDERED: SOD PHOSPHATE/SOD BIPHOSPHATE (ADULT) ENEMA 133ML RECTAL PRN (11:45)
[2016-12-26 12:00] VITALS: BP 126/66; PULSE 92; RESP 16; TEMP 95.8; O2SAT 93
[2016-12-26 16:00] VITALS: BP 123/58; PULSE 100; RESP 17; TEMP 97.4; O2SAT 92
[2016-12-26 20:00] VITALS: BP 85/49; PULSE 91; RESP 18; TEMP 97.6; O2SAT 90
[2016-12-26] MEDS: RIVAROXABAN 20 MG TAB PO SCH (21:18)
[2016-12-26] MEDS: ESCITALOPRAM OXALATE 20 MG TAB PO SCH (21:19)
[2016-12-26] MEDS: TOLTERODINE TARTRATE 4 MG CAP LA PO SCH (21:19)
[2016-12-26] MEDS: traZODone HCL 100 MG TAB PO SCH (23:00)
[2016-12-27] VITALS: RESP 18
[2016-12-27] MEDS: MORPHINE SULFATE 30 MG CONTROLLED RELEASE TAB PO SCH ×3 (02:00→18:03)
[2016-12-27] MEDS: MORPHINE SULFATE 100 MG CONTROLLED RELEASE TAB PO SCH ×3 (02:00→18:03)
[2016-12-27] MEDS: ONDANSETRON HCL 4 MG/2 ML VIAL IV PUSH PRN ×2 (04:16→22:17)
[2016-12-27] MEDS: ALPRAZolam 1 MG TAB PO PRN ×2 (04:16→23:33)
[2016-12-27] MEDS: BACLOFEN 20 MG TAB PO PRN ×2 (04:17→22:13)
[2016-12-27] MEDS: LEVOTHYROXINE SODIUM 50 MCG TAB PO SCH (04:17)
[2016-12-27] MEDS: OXYBUTYNIN CHLORIDE 5 MG TAB PO SCH ×3 (06:00→20:57)
[2016-12-27] MEDS: MIDODRINE 5 MG TAB PO SCH ×3 (06:00→20:56)
[2016-12-27] MEDS: INSULIN ASPART SUPPLEMENTAL SCALE SQ SCH ×4 (06:20→21:04)
[2016-12-27] MEDS: INSULIN DETEMIR 100 UNITS/ML VIAL SQ SCH ×2 (06:31→21:04)
[2016-12-27 08:00] VITALS: BP 120/61; PULSE 86; RESP 16; TEMP 96.7; O2SAT 96
[2016-12-27] MEDS: NYSTATIN 100,000 U/GM PWD 15 GM BTL TOPICAL SCH ×2 (09:00→20:57)
[2016-12-27] MEDS: COLLAGENASE OINT 30 GM TUBE TOPICAL SCH (09:00)
[2016-12-27] MEDS: POVIDONE IODINE 10% OINT 30 GM TUBE TOPICAL SCH (09:00)
[2016-12-27] MEDS: DOCUSATE SODIUM 50 MG/SENNA 8.6 MG TAB PO SCH ×2 (09:00→21:00)
[2016-12-27 12:00] VITALS: BP 105/51; PULSE 90; RESP 16; TEMP 96.4; O2SAT 94
[2016-12-27] MEDS: FAMOTIDINE 20 MG TAB PO SCH (12:37)
[2016-12-27] MEDS: buPROPion HCL 150 MG SUSTAINED RELEASE TAB PO SCH (12:37)
[2016-12-27] MEDS: ASCORBIC ACID 500 MG TAB PO SCH ×2 (12:38→20:57)
[2016-12-27] MEDS: ATORVASTATIN 40 MG TAB PO SCH (12:38)
[2016-12-27] MEDS: GABAPENTIN 300 MG CAP PO SCH ×3 (12:38→18:04)
[2016-12-27 16:00] VITALS: BP 114/55; PULSE 78; RESP 16; TEMP 96.2; O2SAT 98
--- NOTE | 2016-12-27 17:22 | HHI.PR ---
Subjective Remarks Pt asleep, briefly wakes up and pulls cover over his head, has CPAP machine on and doesn't want to be bothered. Objective Vitals Vital Signs Date Time Temp Pulse Resp B/P Pulse Ox O2 Delivery O2 Flow Rate FiO2 12/27/16 16:00 96.2 78 16 114/55 98 12/27/16 12:00 96.4 90 16 105/51 94 12/27/16 08:00 96.7 86 16 120/61 96 12/27/16 00:00 18 12/26/16 20:00 97.6 91 18 85/49 90 I/O 12/26/16 12/26/16 12/26/16 12/27/16 12/27/16 12/27/16 07:00 15:00 23:00 07:00 15:00 23:00 Intake Total 720 ml 200 ml 620 ml 360 ml Output Total 2900 ml 1125 ml 2925 ml 1625 ml Balance -2180 ml -925 ml -2305 ml -1265 ml Intake Oral 720 ml 200 ml 620 ml 360 ml Output Urine Total 2900 ml 1125 ml 2925 ml 1625 ml # Bowel Movements 0 1 1 2 Objective Remarks GENERAL: Morbidly obese, well-developed patient lying in bed RESPIRATORY:CPAP in place GASTROINTESTINAL: Abdomen round, obese, NEUROLOGICAL: asleep but briefly wakes up then pulls covers over his head. Procedures 11/25- S/P flexible cystoscopy with replacement of kyle catheter (Councill catheter) Date of Insertion: Nov 25, 2016 A/P Problem List: (1) UTI (urinary tract infection) ICD Code: N39.0 Status: Acute (2) Chronic pain ICD Code: G89.29 Status: Chronic (3) Type 2 diabetes mellitus ICD Code: E11.9 Status: Chronic (4) Morbidly obese ICD Code: E66.01 Status: Chronic (5) Depression ICD Code: F32.9 Status: Chronic (6) Pressure ulcer ICD Code: L89.90 Status: Chronic (7) Sleep apnea ICD Code: G47.30 Status: Chronic (8) Hypothyroidism ICD Code: E03.9 Status: Chronic Assessment and Plan Update on pt's management 12/27/16: no changes today. pt asleep and had no complaints. Neurogenic Bladder Sepsis source likely urinary tract infection, ESBL Hypotension, resolved. - Blood pressure stable. Continue Midodrine - Status post Levaquin and Ertapenem for UTI. - Kyle catheter place by Dr. Meraz on 11/25. to be replaced by urology sometime this week. Continue Oxybutynin 5mg bid. - Status post urine cath leakage. Urology was reconsulted on 12/14. Patient declined catheter exchange. No urological intervention at this time per urology. - Blood cultures NGTD. Diabetes Mellitus: insulin requiring, reinforced and encourage. - Monitor Accu-Cheks, continue sliding scale insulin. - on Levemir 26 units subq in am and 26 units subq qhs. Adjust as needed - Continue to monitor and adjust the regimen as needed. Chronic pain. Home medications baclofen, morphine, oxycodone. Continue Oramorph. Sleep apnea Insomnia - CPAP at night - Continue home medications Ambien PRN & Trazadone 200 qHS. BIPAP at night. Morbid obesity: Outpatient general surgery referral needed for possible surgical interventions Chronic pressure ulcers: Wound care team following. Patient turning himself. Anxiety and depression: no homicidal or suicidal ideations - Was evaluated by psych in the ER, Felipe acted lifted, did not meet inpatient psychiatric and admission criteria. - Patient has long history of being on psychiatric medication, currently on Lexapro. Previously was on [place] and did not do well with mood on this. - Psychiatry follow-up appreciated. Hyperlipidemia: Continue Lipitor. Hypothyroidism: Continue levothyroxine. Substance use: tox screen on admission significant for opiates, benzos, cannabinoids. Constipation: Laxatives available as needed. will add fleet enema as needed as well. DVT prophylaxis: On Xarelto DNR status Palliative care following. Discharge Planning difficult discharge. no accepting facility yet. Problem Qualifiers (1) Morbidly obese: Qualified Code: E66.01 - Morbid obesity, unspecified obesity type (2) Pressure ulcer: Mireya Malik MD December 27, 2016 17:22
[2016-12-27] MEDS: SODIUM CHLORIDE 0.9% FLUSH 10 ML FLUSH IV FLUSH SCH ×2 (18:04→21:00)
[2016-12-27 20:00] VITALS: BP 119/57; PULSE 102; RESP 18; TEMP 96.8; O2SAT 100
[2016-12-27] MEDS: TOLTERODINE TARTRATE 4 MG CAP LA PO SCH (20:56)
[2016-12-27] MEDS: ESCITALOPRAM OXALATE 20 MG TAB PO SCH (20:57)
[2016-12-27] MEDS: RIVAROXABAN 20 MG TAB PO SCH (20:57)
[2016-12-27] MEDS: SIMETHICONE 80 MG CHEWABLE TAB CHEW PRN (22:13)
[2016-12-27] MEDS: traZODone HCL 100 MG TAB PO SCH (22:23)
[2016-12-27] MEDS: ZOLPIDEM TARTRATE 5 MG TAB PO PRN (23:32)
[2016-12-28] VITALS: BP 125/63; PULSE 93; RESP 18; TEMP 98.4; O2SAT 98
[2016-12-28 00:34] VITALS: O2SAT 96
[2016-12-28] MEDS: MORPHINE SULFATE 100 MG CONTROLLED RELEASE TAB PO SCH ×3 (02:00→17:13)
[2016-12-28] MEDS: MORPHINE SULFATE 30 MG CONTROLLED RELEASE TAB PO SCH ×3 (02:00→17:13)
[2016-12-28] MEDS: MIDODRINE 5 MG TAB PO SCH ×2 (06:14→14:18)
[2016-12-28] MEDS: OXYBUTYNIN CHLORIDE 5 MG TAB PO SCH ×2 (06:14→14:18)
[2016-12-28] MEDS: LEVOTHYROXINE SODIUM 50 MCG TAB PO SCH (06:14)
[2016-12-28] MEDS: INSULIN DETEMIR 100 UNITS/ML VIAL SQ SCH (06:15)
[2016-12-28] MEDS: INSULIN ASPART SUPPLEMENTAL SCALE SQ SCH ×4 (06:16→21:31)
[2016-12-28 08:00] VITALS: PULSE 67; RESP 14; TEMP 97.8; O2SAT 100
[2016-12-28] MEDS: DOCUSATE SODIUM 50 MG/SENNA 8.6 MG TAB PO SCH ×2 (09:00→20:29)
[2016-12-28] MEDS: POVIDONE IODINE 10% OINT 30 GM TUBE TOPICAL SCH (09:00)
[2016-12-28] MEDS: COLLAGENASE OINT 30 GM TUBE TOPICAL SCH (09:00)
[2016-12-28] MEDS: NYSTATIN 100,000 U/GM PWD 15 GM BTL TOPICAL SCH ×2 (09:00→20:30)
[2016-12-28] MEDS: ASCORBIC ACID 500 MG TAB PO SCH ×2 (10:03→20:29)
[2016-12-28] MEDS: FAMOTIDINE 20 MG TAB PO SCH (10:03)
[2016-12-28] MEDS: ATORVASTATIN 40 MG TAB PO SCH (10:03)
[2016-12-28] MEDS: GABAPENTIN 300 MG CAP PO SCH ×3 (10:03→17:13)
[2016-12-28] MEDS: buPROPion HCL 150 MG SUSTAINED RELEASE TAB PO SCH (10:03)
[2016-12-28] MEDS: SODIUM CHLORIDE 0.9% FLUSH 10 ML FLUSH IV FLUSH SCH ×2 (10:08→20:27)
[2016-12-28 12:00] VITALS: BP 106/50; PULSE 70; RESP 15; TEMP 97.8; O2SAT 95
[2016-12-28] MEDS: SIMETHICONE 80 MG CHEWABLE TAB CHEW PRN (12:42)
[2016-12-28] MEDS: ALPRAZolam 1 MG TAB PO PRN (12:42)
[2016-12-28] MEDS: BACLOFEN 20 MG TAB PO PRN ×2 (12:42→20:35)
--- NOTE | 2016-12-28 14:33 | HHI.PR ---
Subjective Remarks Follow-up diabetes mellitus. Hyperglycemic this morning. Also wants to proceed with Kyle catheter exchange under cystoscopy which Dr. Baez refuses to do. Patient wants another urologist preferably Dr. Meraz. Discussed with RN Objective Vitals Vital Signs Date Time Temp Pulse Resp B/P Pulse Ox O2 Delivery O2 Flow Rate FiO2 12/28/16 12:00 97.8 70 15 106/50 95 12/28/16 08:00 97.8 67 14 100 12/28/16 00:34 96 40 12/28/16 00:00 Room Air 12/28/16 00:00 98.4 93 18 125/63 98 12/27/16 21:58 20 12/27/16 20:00 96.8 102 18 119/57 100 12/27/16 20:00 Room Air 12/27/16 19:30 20 12/27/16 19:30 20 12/27/16 16:00 96.2 78 16 114/55 98 I/O 12/27/16 12/27/16 12/27/16 12/28/16 12/28/16 12/28/16 07:00 15:00 23:00 07:00 15:00 23:00 Intake Total 360 ml 240 ml 240 ml Output Total 1625 ml 750 ml Balance -1265 ml -510 ml 240 ml Intake Oral 360 ml 240 ml 240 ml Output Urine Total 1625 ml 750 ml # Voids 3 # Bowel Movements 2 Objective Remarks GENERAL: Morbidly obese well-developed in no distress SKIN: Warm and dry. HEAD: Atraumatic. Normocephalic. EYES: Pupils equal and round. No scleral icterus. No injection or drainage. ENT: No nasal bleeding or discharge. Mucous membranes pink and moist. NECK: Trachea midline. No JVD. CARDIOVASCULAR: Regular rate and rhythm. RESPIRATORY: No accessory muscle use. Clear to auscultation. Breath sounds equal bilaterally. GASTROINTESTINAL: Abdomen soft, non-tender, nondistended. MUSCULOSKELETAL: Extremities without clubbing, cyanosis, or edema. No obvious deformities. NEUROLOGICAL: Awake and alert. No obvious cranial nerve deficits. Normal speech. PSYCHIATRIC: Appropriate mood and affect; insight and judgment normal. Procedures 11/25- S/P flexible cystoscopy with replacement of kyle catheter (Councill catheter) Date of Insertion: Nov 25, 2016 A/P Problem List: (1) UTI (urinary tract infection) ICD Code: N39.0 Status: Resolved (2) Chronic pain ICD Code: G89.29 Status: Chronic (3) Type 2 diabetes mellitus ICD Code: E11.9 Status: Chronic (4) Morbidly obese ICD Code: E66.01 Status: Chronic (5) Depression ICD Code: F32.9 Status: Chronic (6) Pressure ulcer ICD Code: L89.90 Status: Chronic (7) Sleep apnea ICD Code: G47.30 Status: Chronic (8) Hypothyroidism ICD Code: E03.9 Status: Chronic Assessment and Plan Neurogenic Bladder Sepsis source likely urinary tract infection, ESBL Hypotension, resolved. - Blood pressure stable. Continue Midodrine - Status post Levaquin and Ertapenem for UTI. - Kyle catheter place by Dr. Meraz on 11/25. To be replaced by urology sometime this week. Continue Oxybutynin 5mg bid. - Status post urine cath leakage. Urology was reconsulted on 12/14. Patient declined catheter exchange at that time. No urological intervention at this time per urology. - Blood cultures NGTD. Diabetes Mellitus: insulin requiring, reinforced and encourage. - Monitor Accu-Cheks, continue sliding scale insulin. - Hyperglycemic. On Levemir 26 units subq in am and increase to 28 units subq qhs. Adjust as needed - Continue to monitor and adjust the regimen as needed. Chronic pain. Home medications baclofen, morphine, oxycodone. Continue Oramorph. Sleep apnea Insomnia - CPAP at night - Continue home medications Ambien PRN & Trazadone 200 qHS. BIPAP at night. Morbid obesity: Outpatient general surgery referral needed for possible surgical interventions Chronic pressure ulcers: Wound care team following. Patient turning himself. Anxiety and depression: no homicidal or suicidal ideations - Was evaluated by psych in the ER, Felipe acted lifted, did not meet inpatient psychiatric and admission criteria. - Patient has long history of being on psychiatric medication, currently on Lexapro. Previously was on [place] and did not do well with mood on this. - Psychiatry follow-up appreciated. Hyperlipidemia: Continue Lipitor. Hypothyroidism: Continue levothyroxine. Substance use: tox screen on admission significant for opiates, benzos, cannabinoids. Constipation: Laxatives available as needed. will add fleet enema as needed as well. DVT prophylaxis: On Xarelto DNR status Palliative care following. Discharge Planning difficult discharge. no accepting facility yet. Problem Qualifiers (1) Morbidly obese: Qualified Code: E66.01 - Morbid obesity, unspecified obesity type (2) Pressure ulcer: Bandar Martinez MD December 28, 2016 14:33
[2016-12-28 16:00] VITALS: BP 126/77; PULSE 69; RESP 17; TEMP 96.8; O2SAT 100
--- NOTE | 2016-12-28 17:20 | HHI.PR ---
Subjective Patient symptoms today Patient refused bedside catheter exchange over a wire. Patient states he is always taken down to the cystoscopy suite for his catheter exchanges. I discussed this is not necessary as we can place a wire through his current catheter and preserve the space and safely place a new catheter. Patient refused. Please contact [facility] for any further care for this patient Objective Vital Signs Vital Signs Date Time Temp Pulse Resp B/P Pulse Ox O2 Delivery O2 Flow Rate FiO2 12/28/16 16:00 96.8 69 17 126/77 100 12/28/16 12:00 97.8 70 15 106/50 95 12/28/16 08:00 97.8 67 14 100 12/28/16 00:34 96 40 12/28/16 00:00 Room Air 12/28/16 00:00 98.4 93 18 125/63 98 12/27/16 21:58 20 12/27/16 20:00 96.8 102 18 119/57 100 12/27/16 20:00 Room Air 12/27/16 19:30 20 12/27/16 19:30 20 Intake & Output 12/28/16 12/28/16 07:00 19:00 Intake Total 480 ml 360 ml Output Total 750 ml 300 ml Balance -270 ml 60 ml Intake Oral 480 ml 360 ml Output Urine Total 750 ml Stool Total 300 ml # Voids 3 Medications and IVs Vinh Baez MD December 28, 2016 17:20
[2016-12-28 20:00] VITALS: BP 119/58; PULSE 95; RESP 17; TEMP 96.8; O2SAT 93
[2016-12-28] MEDS: TOLTERODINE TARTRATE 4 MG CAP LA PO SCH (20:28)
[2016-12-28] MEDS: RIVAROXABAN 20 MG TAB PO SCH (20:29)
[2016-12-28] MEDS: ESCITALOPRAM OXALATE 20 MG TAB PO SCH (20:29)
[2016-12-28] MEDS ORDERED: INSULIN DETEMIR 100 UNITS/ML VIAL SQ SCH (21:00)
[2016-12-29] VITALS: BP 132/85; PULSE 95; RESP 17; TEMP 97; O2SAT 95
[2016-12-29] MEDS: OXYBUTYNIN CHLORIDE 5 MG TAB PO SCH ×4 (00:10→23:36)
[2016-12-29] MEDS: MIDODRINE 5 MG TAB PO SCH ×4 (00:13→23:36)
[2016-12-29] MEDS: traZODone HCL 100 MG TAB PO SCH ×2 (00:14→23:31)
[2016-12-29] MEDS: ZOLPIDEM TARTRATE 5 MG TAB PO PRN ×2 (00:14→23:31)
[2016-12-29] MEDS: CLOTRIMAZOLE 1% CREAM 15 GM TOPICAL PRN (00:16)
[2016-12-29] MEDS: ALPRAZolam 1 MG TAB PO PRN (00:26)
[2016-12-29] MEDS: MORPHINE SULFATE 100 MG CONTROLLED RELEASE TAB PO SCH ×3 (03:05→17:38)
[2016-12-29] MEDS: MORPHINE SULFATE 30 MG CONTROLLED RELEASE TAB PO SCH ×3 (03:05→17:38)
[2016-12-29] MEDS: LEVOTHYROXINE SODIUM 50 MCG TAB PO SCH (05:21)
[2016-12-29] MEDS: INSULIN ASPART SUPPLEMENTAL SCALE SQ SCH ×4 (05:25→20:31)
[2016-12-29] MEDS: BACLOFEN 20 MG TAB PO PRN ×2 (05:30→22:16)
[2016-12-29] MEDS: INSULIN DETEMIR 100 UNITS/ML VIAL SQ SCH ×2 (07:00→20:30)
[2016-12-29 07:42] VITALS: O2SAT 96
[2016-12-29] MEDS: GABAPENTIN 300 MG CAP PO SCH ×3 (09:00→17:38)
[2016-12-29] MEDS: DOCUSATE SODIUM 50 MG/SENNA 8.6 MG TAB PO SCH ×2 (09:00→21:00)
[2016-12-29] MEDS: NYSTATIN 100,000 U/GM PWD 15 GM BTL TOPICAL SCH ×2 (09:00→21:00)
[2016-12-29] MEDS: ASCORBIC ACID 500 MG TAB PO SCH ×2 (09:00→22:15)
[2016-12-29 09:02] VITALS: BP 108/52; PULSE 71; RESP 16; TEMP 97.9; O2SAT 96
[2016-12-29] MEDS: buPROPion HCL 150 MG SUSTAINED RELEASE TAB PO SCH (11:35)
[2016-12-29] MEDS: ATORVASTATIN 40 MG TAB PO SCH (11:36)
[2016-12-29] MEDS: FAMOTIDINE 20 MG TAB PO SCH (11:36)
[2016-12-29] MEDS: POVIDONE IODINE 10% OINT 30 GM TUBE TOPICAL SCH (11:41)
[2016-12-29] MEDS: COLLAGENASE OINT 30 GM TUBE TOPICAL SCH (11:41)
[2016-12-29] MEDS: SODIUM CHLORIDE 0.9% FLUSH 10 ML FLUSH IV FLUSH SCH ×2 (11:45→20:22)
[2016-12-29 12:00] VITALS: BP 109/68; PULSE 77; RESP 15; TEMP 97.8; O2SAT 99
--- NOTE | 2016-12-29 13:48 | HHI.PR ---
Subjective Remarks Diabetes mellitus. Admits to dietary noncompliance requests to main on regular diet but will avoid junk foods. When he woke up this afternoon, he became nauseous and vomited no hematemesis. He is also having gas pain regular bowel movement yesterday. Discussed with RN Objective Vitals Vital Signs Date Time Temp Pulse Resp B/P Pulse Ox O2 Delivery O2 Flow Rate FiO2 12/29/16 12:00 97.8 77 15 109/68 99 12/29/16 09:20 Bi-Pap 12/29/16 09:02 97.9 71 16 108/52 96 12/29/16 07:42 96 30 12/29/16 00:00 97.0 95 17 132/85 95 12/28/16 20:00 96.8 95 17 119/58 93 12/28/16 16:00 96.8 69 17 126/77 100 I/O 12/28/16 12/28/16 12/28/16 12/29/16 12/29/16 12/29/16 07:00 15:00 23:00 07:00 15:00 23:00 Intake Total 240 ml 600 ml 240 ml 0 ml Output Total 600 ml Balance 240 ml 0 ml 240 ml 0 ml Intake Oral 240 ml 600 ml 240 ml 0 ml Output Urine Total 300 ml Stool Total 300 ml # Voids 3 3 2 Objective Remarks GENERAL: Morbidly obese well-developed in distress due to nausea and vomiting SKIN: Warm and dry. HEAD: Atraumatic. Normocephalic. EYES: Pupils equal and round. No scleral icterus. No injection or drainage. ENT: No nasal bleeding or discharge. Mucous membranes pink and moist. NECK: Trachea midline. No JVD. CARDIOVASCULAR: Regular rate and rhythm. RESPIRATORY: No accessory muscle use. Clear to auscultation. Breath sounds equal bilaterally. GASTROINTESTINAL: Abdomen soft, non-tender, nondistended. MUSCULOSKELETAL: Extremities without clubbing, cyanosis, or edema. No obvious deformities. NEUROLOGICAL: Awake and alert. No obvious cranial nerve deficits. Normal speech. PSYCHIATRIC: Appropriate mood and affect; insight and judgment normal. Procedures 11/25- S/P flexible cystoscopy with replacement of kyle catheter (Councill catheter) Date of Insertion: Nov 25, 2016 A/P Problem List: (1) UTI (urinary tract infection) ICD Code: N39.0 Status: Resolved (2) Chronic pain ICD Code: G89.29 Status: Chronic (3) Type 2 diabetes mellitus ICD Code: E11.9 Status: Chronic (4) Morbidly obese ICD Code: E66.01 Status: Chronic (5) Depression ICD Code: F32.9 Status: Chronic (6) Pressure ulcer ICD Code: L89.90 Status: Chronic (7) Sleep apnea ICD Code: G47.30 Status: Chronic (8) Hypothyroidism ICD Code: E03.9 Status: Chronic Assessment and Plan Neurogenic Bladder Sepsis source likely urinary tract infection, ESBL Hypotension, resolved. - Blood pressure stable. Continue Midodrine - Status post Levaquin and Ertapenem for UTI. - Kyle catheter place by Dr. Meraz on 11/25. To be replaced by urology sometime this week. Continue Oxybutynin 5mg bid. - Status post urine cath leakage. Urology was reconsulted on 12/14. Patient declined catheter exchange at that time. No urological intervention at this time per urology. - Blood cultures NGTD. Diabetes Mellitus: insulin requiring, reinforced and encourage. Noncompliance. Counseled. - Monitor Accu-Cheks, continue sliding scale insulin. - Hyperglycemic. On Levemir 26 units subq in am and increase to 32 units subq qhs. Adjust as needed - Continue to monitor and adjust the regimen as needed. Chronic pain. Home medications baclofen, morphine, oxycodone. Continue Oramorph. Sleep apnea Insomnia - CPAP at night - Continue home medications Ambien PRN & Trazadone 200 qHS. BIPAP at night. Morbid obesity: Outpatient general surgery referral needed for possible surgical interventions Chronic pressure ulcers: Wound care team following. Patient turning himself. Anxiety and depression: no homicidal or suicidal ideations - Was evaluated by psych in the ER, Felipe acted lifted, did not meet inpatient psychiatric and admission criteria. - Patient has long history of being on psychiatric medication, currently on Lexapro. Previously was on [place] and did not do well with mood on this. - Psychiatry follow-up appreciated. Hyperlipidemia: Continue Lipitor. Hypothyroidism: Continue levothyroxine. Substance use: tox screen on admission significant for opiates, benzos, cannabinoids. Constipation: Laxatives available as needed. will add fleet enema as needed as well. Nausea and vomiting. Zofran as needed. Repeat CBC, BMP and magnesium. We'll continue to closely monitor DVT prophylaxis: On Xarelto DNR status Palliative care following. Discharge Planning difficult discharge. no accepting facility yet. Problem Qualifiers (1) Morbidly obese: Qualified Code: E66.01 - Morbid obesity, unspecified obesity type (2) Pressure ulcer: Bandar Martinez MD December 29, 2016 13:48
[2016-12-29] MEDS: PROMETHAZINE HCL 25 MG TAB PO PRN (13:52)
[2016-12-29 16:00] VITALS: BP 84/51; PULSE 83; RESP 16; TEMP 99; O2SAT 98
[2016-12-29 20:00] VITALS: BP 127/82; PULSE 100; RESP 22; TEMP 97; O2SAT 97
[2016-12-29] MEDS: ONDANSETRON HCL 4 MG/2 ML VIAL IV PUSH PRN (20:22)
[2016-12-29] MEDS: TOLTERODINE TARTRATE 4 MG CAP LA PO SCH (22:14)
[2016-12-29] MEDS: RIVAROXABAN 20 MG TAB PO SCH (22:15)
[2016-12-29] MEDS: ESCITALOPRAM OXALATE 20 MG TAB PO SCH (22:15)
[2016-12-30] VITALS: BP 122/78; PULSE 91; RESP 20; TEMP 96.4; O2SAT 98
[2016-12-30] MEDS: MORPHINE SULFATE 30 MG CONTROLLED RELEASE TAB PO SCH ×3 (02:29→16:57)
[2016-12-30] MEDS: MORPHINE SULFATE 100 MG CONTROLLED RELEASE TAB PO SCH ×3 (02:29→16:57)
[2016-12-30] MEDS: ALPRAZolam 1 MG TAB PO PRN (02:59)
[2016-12-30] MEDS: INSULIN ASPART SUPPLEMENTAL SCALE SQ SCH ×4 (05:11→21:07)
[2016-12-30] MEDS: OXYBUTYNIN CHLORIDE 5 MG TAB PO SCH ×3 (05:12→20:48)
[2016-12-30] MEDS: MIDODRINE 5 MG TAB PO SCH ×3 (05:12→20:47)
[2016-12-30] MEDS: INSULIN DETEMIR 100 UNITS/ML VIAL SQ SCH ×2 (05:12→21:06)
[2016-12-30] MEDS: LEVOTHYROXINE SODIUM 50 MCG TAB PO SCH (05:12)
[2016-12-30 06:18] LABS: AUTOMATED NEUTROPHIL # 5.2 TH/MM3 (1.8-7.7); BASOPHIL % 0.4 % (0.0-2.0); EOSINOPHIL # 0.6 TH/MM3 (0-0.4); EOSINOPHIL % 7.3 % (0.0-4.0); HEMATOCRIT 30.7 % (39.0-51.0); HEMO FLAGS DIFF FINAL; LYMPH % 26.3 % (9.0-44.0); LYMPHOCYTE # 2.3 TH/MM3 (1.0-4.8); MEAN CELL VOLUME 75.5 FL (80.0-100.0); MEAN CORPUSCULAR HEMOGLOBIN 23.3 PG (27.0-34.0); MEAN CORPUSCULAR HGB CONC 30.8 % (32.0-36.0); MONO % 6.7 % (0.0-8.0); NEUT % 59.3 % (16.0-70.0); PLATELET COUNT 317 TH/MM3 (150-450); RED BLOOD COUNT 4.07 MIL/MM3 (4.50-5.90); RED CELL DISTRIBUTION WIDTH 22.3 % (11.6-17.2); WHITE BLOOD COUNT 8.8 TH/MM3 (4.0-11.0)
[2016-12-30 06:24] LABS: BICARBONATE 31.5 MEQ/L (21.0-32.0); MAGNESIUM 2.5 MG/DL (1.5-2.5); POTASSIUM 4.1 MEQ/L (3.5-5.1)
[2016-12-30] MEDS: DOCUSATE SODIUM 50 MG/SENNA 8.6 MG TAB PO SCH ×2 (06:59→20:43)
[2016-12-30] MEDS: GABAPENTIN 300 MG CAP PO SCH ×3 (07:11→16:57)
[2016-12-30] MEDS: ATORVASTATIN 40 MG TAB PO SCH (07:12)
[2016-12-30] MEDS: FAMOTIDINE 20 MG TAB PO SCH (07:12)
[2016-12-30] MEDS: ASCORBIC ACID 500 MG TAB PO SCH ×2 (07:12→20:43)
[2016-12-30] MEDS: buPROPion HCL 150 MG SUSTAINED RELEASE TAB PO SCH (07:12)
[2016-12-30] MEDS: POVIDONE IODINE 10% OINT 30 GM TUBE TOPICAL SCH (07:14)
[2016-12-30] MEDS: COLLAGENASE OINT 30 GM TUBE TOPICAL SCH (07:15)
[2016-12-30] MEDS: NYSTATIN 100,000 U/GM PWD 15 GM BTL TOPICAL SCH ×2 (07:15→20:45)
[2016-12-30] MEDS: SODIUM CHLORIDE 0.9% FLUSH 10 ML FLUSH IV FLUSH SCH ×2 (07:17→20:42)
[2016-12-30 08:00] VITALS: BP 119/57; PULSE 76; RESP 15; TEMP 98.9; O2SAT 98
--- NOTE | 2016-12-30 10:04 | HHI.PR ---
Subjective Remarks Follow diabetes mellitus, nausea and chronic indwelling catheter. Improving hyperglycemia patient states he has been compliant with his diet. Improving nausea. Agrees to have a catheter exchange at bedside. Discussed with RN to page Objective Vitals Vital Signs Date Time Temp Pulse Resp B/P Pulse Ox O2 Delivery O2 Flow Rate FiO2 12/30/16 08:00 98.9 76 15 119/57 98 12/30/16 07:18 Bi-Pap 12/30/16 00:00 96.4 91 20 122/78 98 12/29/16 20:00 97.0 100 22 127/82 97 12/29/16 16:00 99.0 83 16 84/51 98 12/29/16 12:00 97.8 77 15 109/68 99 I/O 12/29/16 12/29/16 12/29/16 12/30/16 12/30/16 12/30/16 07:00 15:00 23:00 07:00 15:00 23:00 Intake Total 240 ml 0 ml 440 ml 720 ml Output Total 1500 ml 1600 ml Balance 240 ml 0 ml -1060 ml -880 ml Intake Oral 240 ml 0 ml 440 ml 720 ml Output Urine Total 1500 ml 1600 ml # Voids 2 # Bowel Movements 0 Result Diagram: 12/30/16 0507 12/30/16 0507 Objective Remarks GENERAL: Morbidly obese well-developed in no distress SKIN: Warm and dry. HEAD: Atraumatic. Normocephalic. EYES: Pupils equal and round. No scleral icterus. No injection or drainage. ENT: No nasal bleeding or discharge. Mucous membranes pink and moist. NECK: Trachea midline. No JVD. CARDIOVASCULAR: Regular rate and rhythm. RESPIRATORY: No accessory muscle use. Clear to auscultation. Breath sounds equal bilaterally. GASTROINTESTINAL: Abdomen soft, non-tender, nondistended. MUSCULOSKELETAL: Extremities without clubbing, cyanosis, or edema. No obvious deformities. NEUROLOGICAL: Awake and alert. No obvious cranial nerve deficits. Normal speech. PSYCHIATRIC: Appropriate mood and affect; insight and judgment normal. Procedures 11/25- S/P flexible cystoscopy with replacement of kyle catheter (Councill catheter) Date of Insertion: Nov 25, 2016 A/P Problem List: (1) UTI (urinary tract infection) ICD Code: N39.0 Status: Resolved (2) Chronic pain ICD Code: G89.29 Status: Chronic (3) Type 2 diabetes mellitus ICD Code: E11.9 Status: Chronic (4) Morbidly obese ICD Code: E66.01 Status: Chronic (5) Depression ICD Code: F32.9 Status: Chronic (6) Pressure ulcer ICD Code: L89.90 Status: Chronic (7) Sleep apnea ICD Code: G47.30 Status: Chronic (8) Hypothyroidism ICD Code: E03.9 Status: Chronic Assessment and Plan Neurogenic Bladder Sepsis source likely urinary tract infection, ESBL Hypotension, resolved. - Blood pressure stable. Continue Midodrine - Status post Levaquin and Ertapenem for UTI. - Kyle catheter place by Dr. Meraz on 11/25. To be replaced by urology sometime this week. Continue Oxybutynin 5mg bid. - Status post urine cath leakage. Urology was reconsulted on 12/14. Patient declined catheter exchange at that time. No urological intervention at this time per urology. - Blood cultures NGTD. Diabetes Mellitus: insulin requiring, reinforced and encourage. Noncompliance. Counseled. - Monitor Accu-Cheks, continue sliding scale insulin. -Improving. On Levemir 26 units subq in am and 32 units subq qhs. Adjust as needed - Continue to monitor and adjust the regimen as needed. Chronic pain. Home medications baclofen, morphine, oxycodone. Continue Oramorph. Sleep apnea Insomnia - CPAP at night - Continue home medications Ambien PRN & Trazadone 200 qHS. BIPAP at night. Morbid obesity: Outpatient general surgery referral needed for possible surgical interventions Chronic pressure ulcers: Wound care team following. Patient turning himself. Anxiety and depression: no homicidal or suicidal ideations - Was evaluated by psych in the ER, Felipe acted lifted, did not meet inpatient psychiatric and admission criteria. - Patient has long history of being on psychiatric medication, currently on Lexapro. Previously was on [place] and did not do well with mood on this. - Psychiatry follow-up appreciated. Hyperlipidemia: Continue Lipitor. Hypothyroidism: Continue levothyroxine. Substance use: tox screen on admission significant for opiates, benzos, cannabinoids. Constipation: Laxatives available as needed. will add fleet enema as needed as well. Nausea and vomiting. Zofran as needed. Repeat CBC, BMP and magnesium stable. We'll continue to closely monitor DVT prophylaxis: On Xarelto DNR status Palliative care following. Discharge Planning difficult discharge. no accepting facility yet. Problem Qualifiers (1) Morbidly obese: Qualified Code: E66.01 - Morbid obesity, unspecified obesity type (2) Pressure ulcer: Bandar Martinez MD December 30, 2016 10:04
[2016-12-30] MEDS: BACLOFEN 20 MG TAB PO PRN (11:12)
[2016-12-30] MEDS: ONDANSETRON HCL 4 MG/2 ML VIAL IV PUSH PRN (11:13)
[2016-12-30 12:00] VITALS: BP 115/59; PULSE 79; RESP 19; TEMP 97.9; O2SAT 95
[2016-12-30 16:00] VITALS: BP 117/59; PULSE 63; RESP 20; TEMP 97.7; O2SAT 96
[2016-12-30 20:00] VITALS: BP 115/56; PULSE 76; RESP 18; TEMP 97.5; O2SAT 93
[2016-12-30] MEDS: RIVAROXABAN 20 MG TAB PO SCH (20:42)
[2016-12-30] MEDS: ESCITALOPRAM OXALATE 20 MG TAB PO SCH (20:42)
[2016-12-30] MEDS: TOLTERODINE TARTRATE 4 MG CAP LA PO SCH (20:48)
[2016-12-30 23:20] VITALS: O2SAT 98
[2016-12-31] VITALS: BP 134/74; PULSE 86; RESP 18; TEMP 97.1; O2SAT 96
[2016-12-31] MEDS: ALPRAZolam 1 MG TAB PO PRN ×2 (00:47→06:22)
[2016-12-31] MEDS: traZODone HCL 100 MG TAB PO SCH ×2 (00:47→22:35)
[2016-12-31] MEDS: ZOLPIDEM TARTRATE 5 MG TAB PO PRN (00:48)
[2016-12-31] MEDS: BACLOFEN 20 MG TAB PO PRN ×2 (00:48→06:22)
[2016-12-31] MEDS: MORPHINE SULFATE 100 MG CONTROLLED RELEASE TAB PO SCH ×3 (02:10→17:38)
[2016-12-31] MEDS: MORPHINE SULFATE 30 MG CONTROLLED RELEASE TAB PO SCH ×3 (02:11→17:38)
[2016-12-31] MEDS: OXYBUTYNIN CHLORIDE 5 MG TAB PO SCH ×3 (04:51→22:35)
[2016-12-31] MEDS: MIDODRINE 5 MG TAB PO SCH ×3 (04:51→22:35)
[2016-12-31] MEDS: LEVOTHYROXINE SODIUM 50 MCG TAB PO SCH (04:52)
[2016-12-31] MEDS: INSULIN DETEMIR 100 UNITS/ML VIAL SQ SCH ×2 (05:33→22:33)
[2016-12-31] MEDS: INSULIN ASPART SUPPLEMENTAL SCALE SQ SCH ×4 (05:34→22:32)
[2016-12-31 08:00] VITALS: BP 118/63; PULSE 110; RESP 17; TEMP 98.5; O2SAT 97
[2016-12-31] MEDS: ASCORBIC ACID 500 MG TAB PO SCH ×2 (08:53→22:34)
[2016-12-31] MEDS: DOCUSATE SODIUM 50 MG/SENNA 8.6 MG TAB PO SCH ×2 (08:53→22:33)
[2016-12-31] MEDS: ATORVASTATIN 40 MG TAB PO SCH (08:53)
[2016-12-31] MEDS: FAMOTIDINE 20 MG TAB PO SCH (08:53)
[2016-12-31] MEDS: GABAPENTIN 300 MG CAP PO SCH ×3 (08:53→17:37)
[2016-12-31] MEDS: buPROPion HCL 150 MG SUSTAINED RELEASE TAB PO SCH (08:53)
[2016-12-31] MEDS: POVIDONE IODINE 10% OINT 30 GM TUBE TOPICAL SCH (08:56)
[2016-12-31] MEDS: COLLAGENASE OINT 30 GM TUBE TOPICAL SCH (08:56)
[2016-12-31] MEDS: NYSTATIN 100,000 U/GM PWD 15 GM BTL TOPICAL SCH ×2 (08:56→22:36)
[2016-12-31] MEDS: SODIUM CHLORIDE 0.9% FLUSH 10 ML FLUSH IV FLUSH SCH ×2 (08:57→22:36)
[2016-12-31 12:00] VITALS: BP 111/67; PULSE 92; RESP 16; TEMP 97; O2SAT 93
[2016-12-31 16:00] VITALS: BP 120/68; PULSE 60; RESP 17; TEMP 97.4; O2SAT 94
--- NOTE | 2016-12-31 16:36 | HHI.PR ---
Subjective Remarks Follow diabetes mellitus, and chronic indwelling catheter. Improving hyperglycemia patient states he has been compliant with his diet. Agrees to have a catheter exchange at bedside. Pt reported having to be changed several times due to urine flowing his catheter site and "it's painful when they change me." Discussed with Dr. Thurston who stated (or his coverage) would need to be paged to address catheter issue. Discussed with RN who was to page Dr. Baez's service. No other issues noted or reported by pt. Objective Vitals Vital Signs Date Time Temp Pulse Resp B/P Pulse Ox O2 Delivery O2 Flow Rate FiO2 12/31/16 12:00 97.0 92 16 111/67 93 12/31/16 08:00 98.5 110 17 118/63 97 12/31/16 07:00 Room Air 12/31/16 00:00 97.1 86 18 134/74 96 12/30/16 23:20 98 30 12/30/16 20:00 97.5 76 18 115/56 93 I/O 12/30/16 12/30/16 12/30/16 12/31/16 12/31/16 12/31/16 07:00 15:00 23:00 07:00 15:00 23:00 Intake Total 720 ml 480 ml 960 ml 960 ml Output Total 1600 ml 600 ml 1600 ml Balance -880 ml 480 ml 360 ml -640 ml Intake Oral 720 ml 480 ml 960 ml 960 ml Output Urine Total 1600 ml 600 ml 1600 ml Result Diagram: 12/30/16 0507 12/30/16 0507 Imaging No imaging ordered or pending for past 24 hours. Objective Remarks GENERAL: Pt laying abed watching TV, morbidly obese, upper body shirtless, lower portion covered with sheet. SKIN: Warm and dry. Right leg amputated, catheter noted to be exiting lower portion of his body. HEAD: Normocephalic. EYES: No scleral icterus. No injection or drainage. NECK: Supple, trachea midline. No JVD or lymphadenopathy. CARDIOVASCULAR: Regular rate and rhythm without murmurs, gallops, or rubs. RESPIRATORY: Breath sounds equal bilaterally. No accessory muscle use. GASTROINTESTINAL: Abdomen soft, non-tender, nondistended. Bowel sounds present, but diminished all quadrants. MUSCULOSKELETAL: No cyanosis, or edema. PSYCHIATRIC: Pt A&Ox3, not evidencing overt signs of anxiety or depression. Much of conversation spent on pain management associated with changes when he is wet with urine. Procedures 11/25- S/P flexible cystoscopy with replacement of kyle catheter (Councill catheter) Urinary Catheter: Yes Assessment to: Continue Kyle insert reason: Prolonged Immobilization Date of Insertion: Nov 25, 2016 A/P Problem List: (1) UTI (urinary tract infection) ICD Code: N39.0 Status: Resolved (2) Chronic pain ICD Code: G89.29 Status: Chronic (3) Type 2 diabetes mellitus ICD Code: E11.9 Status: Chronic (4) Morbidly obese ICD Code: E66.01 Status: Chronic (5) Depression ICD Code: F32.9 Status: Chronic (6) Pressure ulcer ICD Code: L89.90 Status: Chronic (7) Sleep apnea ICD Code: G47.30 Status: Chronic (8) Hypothyroidism ICD Code: E03.9 Status: Chronic Assessment and Plan 25 y/o male with a history of paraplegia, neurogenic bladder, HTN, chronic reoccurring DVT, chronic pain, LAKA, sleep apnea, CHF was brought into the ED as a felipe act because he was threatening staff and using a taser. At time of admission he reported feeling fatigued and experienced nausea and vomiting almost every night for the past month. Furthermore, he complained of hematuria and was told last year at [facility] he had gastric ulcers, but feels he is still bleeding. Last EGD done at [place] was 2012. He reported multiple wounds on his sacrum, back, right thigh and left hip, and has not had wound care in the 2 weeks preceding hospitalization. Patient also reported his Kyle catheter has not been replaced in 3 months and the last time required cystoscopy. Neurogenic Bladder Sepsis source likely urinary tract infection, ESBL Hypotension, resolved. - Blood pressure stable. Continue Midodrine - Status post Levaquin and Ertapenem for UTI. - Kyle catheter place by Dr. Meraz on 11/25. To be replaced by urology sometime this week. Continue Oxybutynin 5mg bid. - Status post urine cath leakage. Urology was reconsulted on 12/14. Patient declined catheter exchange at that time. No urological intervention at this time per urology. - Blood cultures NGTD. -Per note of 12/30/16 pt was agreeable to bedside catheter exchange, and was reported called. Awaiting their input/intervention. Diabetes Mellitus: insulin requiring, reinforced and encourage. Noncompliance. Counseled. - Monitor Accu-Cheks, continue sliding scale insulin. -Improving. On Levemir 26 units subq in am and 32 units subq qhs. Adjust as needed - Continue to monitor and adjust the regimen as needed. Chronic pain. Home medications baclofen, morphine, oxycodone. Continue Oramorph. Sleep apnea Insomnia - CPAP at night - Continue home medications Ambien PRN & Trazadone 200 qHS. BIPAP at night. Morbid obesity: Outpatient general surgery referral needed for possible surgical interventions Chronic pressure ulcers: Wound care team following. Patient turning himself. Anxiety and depression: no homicidal or suicidal ideations - Was evaluated by psych in the ER, Felipe acted lifted, did not meet inpatient psychiatric and admission criteria. - Patient has long history of being on psychiatric medication, currently on Lexapro. Previously was on [place] and did not do well with mood on this. - Psychiatry follow-up appreciated. Hyperlipidemia: Continue Lipitor. Hypothyroidism: Continue levothyroxine. Substance use: tox screen on admission significant for opiates, benzos, cannabinoids. Constipation: Laxatives available as needed. will add fleet enema as needed as well. Nausea and vomiting. Zofran as needed. Repeat CBC, BMP and magnesium stable. We'll continue to closely monitor DVT prophylaxis: On Xarelto DNR status Palliative care following. Discharge Planning difficult discharge. no accepting facility yet. Problem Qualifiers (1) Morbidly obese: Qualified Code: E66.01 - Morbid obesity, unspecified obesity type (2) Pressure ulcer: Seth Dunlap Jr. December 31, 2016 16:36
[2016-12-31 20:00] VITALS: BP 96/63; PULSE 77; RESP 20; TEMP 98.9; O2SAT 95
[2016-12-31] MEDS: FUROSEMIDE 40 MG TAB PO SCH (22:34)
[2016-12-31] MEDS: RIVAROXABAN 20 MG TAB PO SCH (22:34)
[2016-12-31] MEDS: ESCITALOPRAM OXALATE 20 MG TAB PO SCH (22:34)
[2016-12-31] MEDS: TOLTERODINE TARTRATE 4 MG CAP LA PO SCH (22:34)
[2017-01-01 00:18] VITALS: O2SAT 97
[2017-01-01] MEDS: MORPHINE SULFATE 100 MG CONTROLLED RELEASE TAB PO SCH ×3 (02:00→17:51)
[2017-01-01] MEDS: MORPHINE SULFATE 30 MG CONTROLLED RELEASE TAB PO SCH ×3 (02:00→17:51)
[2017-01-01 04:00] VITALS: BP 121/73; PULSE 89; RESP 20; TEMP 97.2; O2SAT 98
[2017-01-01] MEDS: LEVOTHYROXINE SODIUM 50 MCG TAB PO SCH (05:36)
[2017-01-01] MEDS: INSULIN ASPART SUPPLEMENTAL SCALE SQ SCH ×4 (05:37→21:49)
[2017-01-01] MEDS: MIDODRINE 5 MG TAB PO SCH ×3 (05:37→21:46)
[2017-01-01] MEDS: OXYBUTYNIN CHLORIDE 5 MG TAB PO SCH ×3 (05:37→21:46)
[2017-01-01] MEDS: INSULIN DETEMIR 100 UNITS/ML VIAL SQ SCH ×2 (05:38→21:48)
[2017-01-01 08:00] VITALS: BP 119/60; PULSE 93; RESP 18; TEMP 97; O2SAT 94
[2017-01-01] MEDS: DOCUSATE SODIUM 50 MG/SENNA 8.6 MG TAB PO SCH ×2 (09:00→21:45)
[2017-01-01] MEDS: ASCORBIC ACID 500 MG TAB PO SCH ×2 (09:00→21:45)
[2017-01-01] MEDS: CLOTRIMAZOLE 1% CREAM 15 GM TOPICAL SCH ×2 (09:00→21:00)
[2017-01-01] MEDS: COLLAGENASE OINT 30 GM TUBE TOPICAL SCH (09:00)
[2017-01-01] MEDS: FAMOTIDINE 20 MG TAB PO SCH (09:00)
[2017-01-01] MEDS: NYSTATIN 100,000 U/GM PWD 15 GM BTL TOPICAL SCH ×2 (09:00→21:00)
[2017-01-01] MEDS: ALPRAZolam 1 MG TAB PO PRN ×2 (09:00→22:53)
[2017-01-01] MEDS: buPROPion HCL 150 MG SUSTAINED RELEASE TAB PO SCH (09:00)
[2017-01-01] MEDS: BACLOFEN 20 MG TAB PO PRN ×2 (09:01→21:47)
[2017-01-01] MEDS: ATORVASTATIN 40 MG TAB PO SCH (09:01)
[2017-01-01] MEDS: SODIUM CHLORIDE 0.9% FLUSH 10 ML FLUSH IV FLUSH SCH ×2 (09:01→21:44)
[2017-01-01] MEDS: GABAPENTIN 300 MG CAP PO SCH ×3 (09:01→17:51)
[2017-01-01] MEDS: CLOTRIMAZOLE 1% CREAM 15 GM TOPICAL PRN (09:04)
[2017-01-01] MEDS: POVIDONE IODINE 10% OINT 30 GM TUBE TOPICAL SCH (09:04)
[2017-01-01 12:00] VITALS: BP 116/65; PULSE 95; RESP 18; TEMP 97; O2SAT 94
--- NOTE | 2017-01-01 14:54 | HHI.PR ---
Subjective Remarks Follow diabetes mellitus, and chronic indwelling catheter. Improving hyperglycemia patient states he has been compliant with his diet. Pt reported having to be changed several times due to urine flowing his catheter site and "it's painful when they change me." Continues to agree to have a catheter exchange at bedside Discussed with Dr. Thurston who stated (or his coverage) would need to be paged to address catheter issue. Discussed with RN who was to page the on-call urology service. RN reported speaking with Dr. Corral who deferred care back to Dr. Baez. No other issues noted or reported by pt. Objective Vitals Vital Signs Date Time Temp Pulse Resp B/P Pulse Ox O2 Delivery O2 Flow Rate FiO2 01/01/17 12:00 97.0 95 18 116/65 94 01/01/17 11:16 18 01/01/17 11:16 18 01/01/17 11:16 18 01/01/17 08:40 Room Air 01/01/17 08:00 97.0 93 18 119/60 94 01/01/17 04:00 97.2 89 20 121/73 98 01/01/17 00:18 97 30 12/31/16 20:00 98.9 77 20 96/63 95 12/31/16 16:00 97.4 60 17 120/68 94 I/O 12/31/16 12/31/16 12/31/16 01/01/17 01/01/17 01/01/17 06:59 14:59 22:59 06:59 14:59 22:59 Intake Total 960 ml 340 ml 720 ml 960 ml 1440 ml Output Total 1600 ml 900 ml 1300 ml 1000 ml Balance -640 ml -560 ml -580 ml -40 ml 1440 ml Intake Oral 960 ml 340 ml 720 ml 960 ml 1440 ml Output Urine Total 1600 ml 900 ml 1300 ml 1000 ml # Bowel Movements 0 0 Result Diagram: 12/30/16 0507 12/30/16 0507 Imaging No imaging ordered or pending within the past 24 hours. Objective Remarks GENERAL: Pt laying abed watching TV, morbidly obese, upper body shirtless, lower portion covered with sheet. SKIN: Warm and dry. Right leg amputated, catheter noted to be exiting lower portion of his body. HEAD: Normocephalic. EYES: No scleral icterus. No injection or drainage. NECK: Supple, trachea midline. No JVD or lymphadenopathy. CARDIOVASCULAR: Regular rate and rhythm without murmurs, gallops, or rubs. RESPIRATORY: Breath sounds equal bilaterally. No accessory muscle use. GASTROINTESTINAL: Abdomen soft, non-tender, nondistended. Bowel sounds present, but diminished all quadrants. MUSCULOSKELETAL: No cyanosis, or edema. PSYCHIATRIC: Pt A&Ox3, not evidencing overt signs of anxiety or depression. Procedures 11/25- S/P flexible cystoscopy with replacement of kyle catheter (Councill catheter) Urinary Catheter: Yes Assessment to: Continue Kyle insert reason: Prolonged Immobilization Date of Insertion: Nov 25, 2016 A/P Problem List: (1) UTI (urinary tract infection) ICD Code: N39.0 Status: Resolved (2) Chronic pain ICD Code: G89.29 Status: Chronic (3) Type 2 diabetes mellitus ICD Code: E11.9 Status: Chronic (4) Morbidly obese ICD Code: E66.01 Status: Chronic (5) Depression ICD Code: F32.9 Status: Chronic (6) Pressure ulcer ICD Code: L89.90 Status: Chronic (7) Sleep apnea ICD Code: G47.30 Status: Chronic (8) Hypothyroidism ICD Code: E03.9 Status: Chronic Assessment and Plan 25 y/o male with a history of paraplegia, neurogenic bladder, HTN, chronic reoccurring DVT, chronic pain, LAKA, sleep apnea, CHF was brought into the ED as a felipe act because he was threatening staff and using a taser. At time of admission he reported feeling fatigued and experienced nausea and vomiting almost every night for the past month. Furthermore, he complained of hematuria and was told last year at [facility] he had gastric ulcers, but feels he is still bleeding. Last EGD done at [place] was 2012. He reported multiple wounds on his sacrum, back, right thigh and left hip, and has not had wound care in the 2 weeks preceding hospitalization. Patient also reported his Kyle catheter has not been replaced in 3 months and the last time required cystoscopy. Neurogenic Bladder Sepsis source likely urinary tract infection, ESBL Hypotension, resolved. - Blood pressure stable. Continue Midodrine - Status post Levaquin and Ertapenem for UTI. - Kyle catheter place by Dr. Meraz on 11/25. To be replaced by urology sometime this week. Continue Oxybutynin 5mg bid. - Status post urine cath leakage. Urology was reconsulted on 12/14. Patient declined catheter exchange at that time. No urological intervention at this time per urology. - Blood cultures NGTD. -Per note of 12/30/16 pt was agreeable to bedside catheter exchange, and was reported called. Awaiting their input/intervention. -01/01/17 Discussed with RN on 12/31/16 who was to page the on-call urology service. RN reported this morning speaking with Dr. Corral who deferred care back to Dr. Baez. Consult placed to Dr. Baez. Diabetes Mellitus: insulin requiring, reinforced and encourage. Noncompliance. Counseled. - Monitor Accu-Cheks, continue sliding scale insulin. -Improving. On Levemir 26 units subq in am and 32 units subq qhs. Adjust as needed - Continue to monitor and adjust the regimen as needed. Chronic pain. Home medications baclofen, morphine, oxycodone. Continue Oramorph. Sleep apnea Insomnia - CPAP at night - Continue home medications Ambien PRN & Trazadone 200 qHS. BIPAP at night. Morbid obesity: Outpatient general surgery referral needed for possible surgical interventions Chronic pressure ulcers: Wound care team following. Patient turning himself. Anxiety and depression: no homicidal or suicidal ideations - Was evaluated by psych in the ER, Felipe acted lifted, did not meet inpatient psychiatric and admission criteria. - Patient has long history of being on psychiatric medication, currently on Lexapro. Previously was on [place] and did not do well with mood on this. - Psychiatry follow-up appreciated. Hyperlipidemia: Continue Lipitor. Hypothyroidism: Continue levothyroxine. Substance use: tox screen on admission significant for opiates, benzos, cannabinoids. Constipation: Laxatives available as needed. will add fleet enema as needed as well. Nausea and vomiting. Zofran as needed. Repeat CBC, BMP and magnesium stable. We'll continue to closely monitor DVT prophylaxis: On Xarelto DNR status Palliative care following. Discharge Planning difficult discharge. no accepting facility yet. Problem Qualifiers (1) Morbidly obese: Qualified Code: E66.01 - Morbid obesity, unspecified obesity type (2) Pressure ulcer: Seth Dunlap Jr. January 01, 2017 14:54
[2017-01-01 16:00] VITALS: BP 133/56; PULSE 99; RESP 17; TEMP 98.6; O2SAT 95
[2017-01-01] MEDS: HYDROmorphone HCL PF 1 MG/ML VIAL IV PUSH PRN (16:14)
[2017-01-01 20:00] VITALS: BP 117/57; PULSE 103; RESP 20; TEMP 100; O2SAT 100
[2017-01-01] MEDS: ESCITALOPRAM OXALATE 20 MG TAB PO SCH (21:45)
[2017-01-01] MEDS: RIVAROXABAN 20 MG TAB PO SCH (21:45)
[2017-01-01] MEDS: TOLTERODINE TARTRATE 4 MG CAP LA PO SCH (21:45)
[2017-01-01] MEDS: traZODone HCL 100 MG TAB PO SCH (21:47)
[2017-01-01] MEDS: ZOLPIDEM TARTRATE 5 MG TAB PO PRN (22:52)
[2017-01-02] VITALS (9 sets, daily range): BP systolic 74–121; BP diastolic 35–74; PULSE 92–125; RESP 12–26; TEMP 98.8–102.1; O2SAT 90–98
[2017-01-02] MEDS: MORPHINE SULFATE 100 MG CONTROLLED RELEASE TAB PO SCH ×3 (02:00→17:02)
[2017-01-02] MEDS: MORPHINE SULFATE 30 MG CONTROLLED RELEASE TAB PO SCH ×3 (02:00→17:02)
[2017-01-02] MEDS: OXYBUTYNIN CHLORIDE 5 MG TAB PO SCH ×3 (05:51→20:38)
[2017-01-02] MEDS: MIDODRINE 5 MG TAB PO SCH ×3 (05:51→20:39)
[2017-01-02] MEDS: LEVOTHYROXINE SODIUM 50 MCG TAB PO SCH (05:52)
[2017-01-02] MEDS: INSULIN DETEMIR 100 UNITS/ML VIAL SQ SCH ×2 (05:57→20:40)
[2017-01-02] MEDS: INSULIN ASPART SUPPLEMENTAL SCALE SQ SCH ×4 (05:58→20:41)
--- NOTE | 2017-01-02 08:59 | HHI.PR ---
Subjective Remarks Follow up diabetes and chronic indwelling catheter. Patient seen and examined. Patient lying in bed alert but more lethargic today states he just feels out of it. Complains of fullness in his bladder. Temp this am 102.1. Does admit to nonproductive cough. Last BM documented 12/27. Tolerating PO intake. Denies any recent chest pain, nausea or vomiting. Objective Vitals Vital Signs Date Time Temp Pulse Resp B/P Pulse Ox O2 Delivery O2 Flow Rate FiO2 01/02/17 08:29 98 21 01/02/17 03:21 98 21 01/02/17 00:36 96 21 01/02/17 00:35 Full Face Mask 21.0 01/02/17 00:00 98.8 92 20 121/64 98 01/01/17 23:00 Bi-Pap 01/01/17 20:00 100.0 103 20 117/57 100 01/01/17 18:44 17 01/01/17 18:44 17 01/01/17 16:44 17 01/01/17 16:00 98.6 99 17 133/56 95 01/01/17 15:14 19 01/01/17 12:00 97.0 95 18 116/65 94 I/O 01/01/17 01/01/17 01/01/17 01/02/17 01/02/17 01/02/17 07:00 15:00 23:00 07:00 15:00 23:00 Intake Total 960 ml 1440 ml 460 ml 640 ml Output Total 1000 ml 750 ml 750 ml Balance -40 ml 1440 ml -290 ml -110 ml Intake Oral 960 ml 1440 ml 460 ml 640 ml Output Urine Total 1000 ml 750 ml 750 ml # Bowel Movements 0 0 0 Result Diagram: 12/30/16 0507 12/30/16 0507 Imaging Last Impressions Chest X-Ray 01/02/17 0000 Signed Impressions: Service Date/Time: Monday, January 02, 2017 09:01 - CONCLUSION: Examination quality is less than optimal due to patient body habitus. Given the technique, no acute finding is appreciated. Elliott Fernandez MD Objective Remarks GENERAL: Morbidly obese male, well-developed patient lying awake in bed on room air. SKIN: Warm and dry. No rash. HEENT: Normocephalic. Atraumatic.Pupils equal and round. No scleral icterus. No injection or drainage. No nasal bleeding or discharge. Mucous membranes pink and moist. Neck supple. Trachea midline. CARDIOVASCULAR: Regular rate and rhythm. S1, S2 noted. No murmur appreciated. RESPIRATORY: No accessory muscle use. Distant breath sounds noted, with coarse breath sounds in anterior bilateral upper lobes. Breath sounds equal bilaterally. GASTROINTESTINAL: Abdomen soft, round, obese, non-tender, nondistended. Normoactive bowel sounds x4. MUSCULOSKELETAL: No obvious deformities. Extremities without clubbing, cyanosis , or edema. NEUROLOGICAL: Awake and alert. No obvious cranial nerve deficits. Motor grossly within normal limits. Normal speech. PSYCHIATRIC: Appropriate mood and affect; insight and judgment normal. Procedures 11/25- S/P flexible cystoscopy with replacement of kyle catheter (Councill catheter) Urinary Catheter: Yes Kyle insert reason: Prolonged Immobilization (ordered for nephrology to see patient to replace.) Date of Insertion: Nov 25, 2016 Vascular Central Line Catheter: No A/P Problem List: (1) UTI (urinary tract infection) ICD Code: N39.0 Status: Resolved (2) Chronic pain ICD Code: G89.29 Status: Chronic (3) Type 2 diabetes mellitus ICD Code: E11.9 Status: Chronic (4) Morbidly obese ICD Code: E66.01 Status: Chronic (5) Depression ICD Code: F32.9 Status: Chronic (6) Pressure ulcer ICD Code: L89.90 Status: Chronic (7) Sleep apnea ICD Code: G47.30 Status: Chronic (8) Hypothyroidism ICD Code: E03.9 Status: Chronic Assessment and Plan 25 y/o male with a history of paraplegia, neurogenic bladder, HTN, chronic reoccurring DVT, chronic pain, LAKA, sleep apnea, CHF was brought into the ED as a parker act because he was threatening staff and using a taser. At time of admission he reported feeling fatigued and experienced nausea and vomiting almost every night for the past month. Furthermore, he complained of hematuria and was told last year at [facility] he had gastric ulcers, but feels he is still bleeding. Last EGD done at [place] was 2012. He reported multiple wounds on his sacrum, back, right thigh and left hip, and has not had wound care in the 2 weeks preceding hospitalization. Patient also reported his Kyle catheter has not been replaced in 3 months and the last time required cystoscopy. Sepsis: suspect source urinary tract infection, ESBL history, MDRO - Leukocytosis WBC 28.6 today 01/02. - Fever of 102.1 this am. Tylenol administered. Tachycardic, 107. - Creatinine increase from 0.74 to 1.6 today 01/02. - Systolic BP currently 90/40. - Lactic acid pending. - Blood cultures ordered and pending. - Repeat urine culture ordered for post Kyle catheter insertion today by urology. - Sputum culture ordered. - Labs ordered, BMP and CBC pending for today 01/02. - Started Ertapenem per protocol. ID consulted, appreciate input.ID consulted , appreciate input. - NS 1L Bolus - Start IVF NS 100 ml/hr. Acute kidney injury: suspect secondary to urinary tract infection Neurogenic bladder - Blood pressure stable. Continue Midodrine. Continue Oxybutynin 5mg bid. - Status post Levaquin and Ertapenem for UTI. - Kyle catheter place by Dr. Meraz on 11/25. Urology reconsulted on 01/01 for replacement of Kyle catheter. - Status post urine cath leakage, urology was reconsulted on 12/14, per patient , intermittent leaking. At that time patient declined catheter exchange with no urological intervention. - Blood cultures NGTD. - Avoid nephrotoxins - Trend creatinine - Start IVF NS 100 ml/hr. Nonproductive cough - Chest x-ray ordered and reviewed, examination quality is less than optimal due to patient body habitus. No acute finding appreciated. Diabetes Mellitus - Monitor Accu-Cheks, continue sliding scale insulin. - Continue Levemir 30 units subq in am and 32 units subq qhs. - Start prandial insulin coverage, Novolog 3 units TID before each meal. - Continue to monitor and adjust the regimen as needed. - Encouraged compliance with ordered ADA diet. Chronic pain. Home medications baclofen, morphine, oxycodone. Continue Oramorph. Sleep apnea Insomnia - Continue CPAP at night - Continue home medications Ambien PRN & Trazadone 200 qHS. BIPAP at night. Morbid obesity: Outpatient general surgery referral needed for possible surgical interventions. Chronic pressure ulcers: Wound care team following. Patient turning himself. Anxiety and depression: no homicidal or suicidal ideations - Was evaluated by psych in the ER, Dest[place] acted lifted, did not meet inpatient psychiatric and admission criteria. - Patient has long history of being on psychiatric medication, currently on Lexapro. Previously was on [place] and did not do well with mood on this. - Psychiatry follow-up appreciated. Hyperlipidemia: Continue Lipitor. Hypothyroidism: Continue levothyroxine. Substance use: tox screen on admission significant for opiates, benzos, cannabinoids. Constipation: Last BM documented today 12/27. Laxatives available as needed. Other written to RN to administer PRN laxatives. DVT prophylaxis: On Xarelto DNR status Palliative care following. Discussed with: patient, RN and Dr. Cade. Discussed with the patient, nurse, [facility] Canales. See my note Problem Qualifiers (1) Morbidly obese: Qualified Code: E66.01 - Morbid obesity, unspecified obesity type (2) Pressure ulcer: Vida Canales January 02, 2017 08:59 Sarahi Cade MD January 03, 2017 00:44
[2017-01-02] MEDS: GABAPENTIN 300 MG CAP PO SCH ×3 (09:37→17:01)
[2017-01-02] MEDS: FAMOTIDINE 20 MG TAB PO SCH (09:37)
[2017-01-02] MEDS: SODIUM CHLORIDE 0.9% FLUSH 10 ML FLUSH IV FLUSH SCH ×2 (09:37→20:36)
[2017-01-02] MEDS: buPROPion HCL 150 MG SUSTAINED RELEASE TAB PO SCH (09:37)
[2017-01-02] MEDS: ASCORBIC ACID 500 MG TAB PO SCH ×2 (09:37→20:37)
[2017-01-02] MEDS: ATORVASTATIN 40 MG TAB PO SCH (09:38)
[2017-01-02] MEDS: DOCUSATE SODIUM 50 MG/SENNA 8.6 MG TAB PO SCH ×2 (09:38→20:37)
[2017-01-02] MEDS: COLLAGENASE OINT 30 GM TUBE TOPICAL SCH (09:39)
[2017-01-02] MEDS: CLOTRIMAZOLE 1% CREAM 15 GM TOPICAL SCH ×2 (09:39→20:38)
[2017-01-02] MEDS: POVIDONE IODINE 10% OINT 30 GM TUBE TOPICAL SCH (09:39)
[2017-01-02] MEDS: NYSTATIN 100,000 U/GM PWD 15 GM BTL TOPICAL SCH ×2 (09:40→20:38)
[2017-01-02] MEDS: ACETAMINOPHEN 325 MG TAB PO PRN (09:40)
--- NOTE | 2017-01-02 09:51 | RADRPT ---
EXAM DATE/TIME: 01/02/2017 09:01 [place] COMPARISON: CHEST SINGLE AP, May 20, 2016, 18:38. INDICATIONS : Congestion. MEDICAL HISTORY : Diabetes mellitus type II. Paraplegia, lower extremity cellulitis. SURGICAL HISTORY : Spinal fusion. ENCOUNTER: Initial ACUITY: 1 day PAIN SCORE: 0/10 LOCATION: Bilateral chest FINDINGS: Portable AP views of the chest demonstrate a normal-sized cardiac silhouette. Patient is rotated and underinflated. Image quality is less than optimal secondary to body habitus. No definite effusion, co nsolidation, or pneumothorax is visualized. Bones and soft tissues demonstrate no acute finding. CONCLUSION: Examination quality is less than optimal due to patient body habitus. Given the technique, no acute f inding is appreciated. Elliott Fernandez MD on January 02, 2017 at 9:44 Board Certified Radiologist. This report was verified electronically.
[2017-01-02 11:24] LABS: AUTOMATED NEUTROPHIL # 25.1 TH/MM3 (1.8-7.7); BASOPHIL # 0.1 TH/MM3 (0-0.2); BASOPHIL % 0.4 % (0.0-2.0); EOSINOPHIL # 0.1 TH/MM3 (0-0.4); EOSINOPHIL % 0.3 % (0.0-4.0); HEMATOCRIT 31.5 % (39.0-51.0); HEMO FLAGS DIFF FINAL; LYMPH % 4.3 % (9.0-44.0); LYMPHOCYTE # 1.2 TH/MM3 (1.0-4.8); MEAN CELL VOLUME 75.8 FL (80.0-100.0); MEAN CORPUSCULAR HEMOGLOBIN 23.5 PG (27.0-34.0); MONO % 7.4 % (0.0-8.0); NEUT % 87.6 % (16.0-70.0); PLATELET COUNT 354 TH/MM3 (150-450); RED BLOOD COUNT 4.16 MIL/MM3 (4.50-5.90); RED CELL DISTRIBUTION WIDTH 21.8 % (11.6-17.2); WHITE BLOOD COUNT 28.6 TH/MM3 (4.0-11.0)
[2017-01-02] MEDS: INSULIN ASPART 1,000 UNITS/10 ML VIAL SQ SCH ×2 (11:46→17:00)
[2017-01-02] MEDS: MAGNESIUM CITRATE SOLN 300 ML BTL PO PRN (11:47)
[2017-01-02] MEDS: LACTULOSE SYRUP 20 GM/30 ML CUP PO PRN (11:47)
[2017-01-02 11:50] LABS: ANION GAP 8 MEQ/L (5-15); BICARBONATE 27.8 MEQ/L (21.0-32.0); BLOOD UREA NITROGEN 31 MG/DL (7-18); CHLORIDE 99 MEQ/L (98-107); GLOMERULAR FILTRATION RATE 52 ML/MIN (>89); POTASSIUM 4.3 MEQ/L (3.5-5.1); SODIUM (NA) 135 MEQ/L (136-145)
[2017-01-02] MEDS ORDERED: MISCELLANEOUS PHARMACY INFORMATION XX PRN (13:00)
[2017-01-02] MEDS ORDERED: SODIUM CHLOR 0.9% 1000 ML INJ 1,000 ML IV ONE ×4 (13:00→13:45)
[2017-01-02] MEDS: SODIUM CHLOR 0.9% 1000 ML INJ 1,000 ML IV SCH ×2 (13:13→20:39)
[2017-01-02] MEDS: LACTOBACILLUS ACIDOPHILUS TAB PO SCH ×2 (13:13→17:01)
--- NOTE | 2017-01-02 13:30 | HHI.PR ---
Subjective Remarks Patient in noted lethargic. He run a high grade fever. Kyle noted with dark and clouded urine. Urology reconsulted. Patient has a h/o og MDRO, ESBL, start invanz and reconsult ID. Patient with low BP he is however alert and oriented x3. He says she deosn't have any pain . His right eyebrow is ingflamed. Says she is not coughing. No chills. He connors sno abdominal pain. He had diarrhea x1 time, will check C diff. No n/v. Objective Vitals Vital Signs Date Time Temp Pulse Resp B/P Pulse Ox O2 Delivery O2 Flow Rate FiO2 01/02/17 13:00 101.2 108 12 74/35 96 01/02/17 12:00 99.4 125 16 90/48 94 01/02/17 08:29 98 21 01/02/17 08:00 102.1 107 17 113/74 98 01/02/17 03:21 98 21 01/02/17 00:36 96 21 01/02/17 00:35 Full Face Mask 21.0 01/02/17 00:00 98.8 92 20 121/64 98 01/01/17 23:00 Bi-Pap 01/01/17 20:00 100.0 103 20 117/57 100 01/01/17 18:44 17 01/01/17 18:44 17 01/01/17 16:44 17 01/01/17 16:00 98.6 99 17 133/56 95 01/01/17 15:14 19 I/O 01/01/17 01/01/17 01/01/17 01/02/17 01/02/17 01/02/17 07:00 15:00 23:00 07:00 15:00 23:00 Intake Total 960 ml 1440 ml 460 ml 640 ml Output Total 1000 ml 750 ml 750 ml Balance -40 ml 1440 ml -290 ml -110 ml Intake Oral 960 ml 1440 ml 460 ml 640 ml Output Urine Total 1000 ml 750 ml 750 ml # Bowel Movements 0 0 0 1 Result Diagram: 01/02/17 1050 01/02/17 1050 Imaging Last Impressions Chest X-Ray 01/02/17 0000 Signed Impressions: Service Date/Time: Monday, January 02, 2017 09:01 - CONCLUSION: Examination quality is less than optimal due to patient body habitus. Given the technique, no acute finding is appreciated. Elliott Fernandez MD Objective Remarks GENERAL: Young morbidly obese 26 yo male, lethargic however arousabale and he is alert and orieted x3. SKIN: Warm and dry. HEAD: Atraumatic. Normocephalic. EYES: Left eyelid inflamed, red and swelling. Pupils equal and round. No scleral icterus. No injection or drainage. ENT: No nasal bleeding or discharge. Mucous membranes pink and moist. NECK: Trachea midline. No JVD. CARDIOVASCULAR: Regular rate and rhythm. RESPIRATORY: No accessory muscle use. Clear to auscultation. Breath sounds equal bilaterally. GASTROINTESTINAL: Abdomen soft, obese, non-tender, nondistended. + BSx4Q. : Kyle in with cloudy, dark urine. MUSCULOSKELETAL: Extremities without clubbing, cyanosis, or edema. No obvious deformities. NEUROLOGICAL: Awake and alert. No obvious cranial nerve deficits. Motor grossly within normal limits UE. Five out of 5 muscle strength in the arms. BKA. Normal speech. PSYCHIATRIC: Appropriate mood and affect; insight and judgment normal. Procedures 11/25- S/P flexible cystoscopy with replacement of kyle catheter (Coun[place]ill catheter) Date of Insertion: Nov 25, 2016 A/P Problem List: (1) UTI (urinary tract infection) ICD Code: N39.0 Status: Resolved (2) Chronic pain ICD Code: G89.29 Status: Chronic (3) Type 2 diabetes mellitus ICD Code: E11.9 Status: Chronic (4) Morbidly obese ICD Code: E66.01 Status: Chronic (5) Depression ICD Code: F32.9 Status: Chronic (6) Pressure ulcer ICD Code: L89.90 Status: Chronic (7) Sleep apnea ICD Code: G47.30 Status: Chronic (8) Hypothyroidism ICD Code: E03.9 Status: Chronic Assessment and Plan 25 y/o male with a history of paraplegia, neurogenic bladder, HTN, chronic reoccurring DVT, chronic pain, LAKA, sleep apnea, CHF was brought into the ED as a parker act because he was threatening staff and using a taser. At time of admission he reported feeling fatigued and experienced nausea and vomiting almost every night for the past month. Furthermore, he complained of hematuria and was told last year at [facility] he had gastric ulcers, but feels he is still bleeding. Last EGD done at [place] was 2012. He reported multiple wounds on his sacrum, back, right thigh and left hip, and has not had wound care in the 2 weeks preceding hospitalization. Patient also reported his Kyle catheter has not been replaced in 3 months and the last time required cystoscopy. Severe Sepsis (01/02/17 noted fever 102.1, leukocytosis 28.6k, BP 74/35, LISA source poss UTI, poss C diff)- Suspected source urinary tract infection, prior recent h/o ESBL, MDRO. Patient also with diarrhea, C diff pending Leukocytosis WBC 28.6 today 01/02. Fever of 102.1 this am. Tylenol administered. Tachycardic, 107. Creatinine increase from 0.74 to 1.6 today 01/02. Systolic BP currently 90/40. Lactic acid pending. Blood cultures ordered and pending Repeat urine culture ordered for post Kyle catheter insertion today by urology. Sputum culture ordered. Labs ordered, BMP and CBC pending for today 01/02. Started Ertapenem per protocol. ID consulted, appreciate input.ID consulted, appreciate input. NS 1L Bolus x4 as noted SBP 74/35. Monitor BP closely continue with fluid resuscitation. If doesn't respond will move patient to ICU, also LA is pending Start IVF NS 100 ml/hr. Acute kidney injury: suspect secondary to urinary tract infection, severe sepsis with end organ damage Neurogenic bladder Blood pressure stable. Continue Midodrine. Continue Oxybutynin 5mg bid. Status post Levaquin and Ertapenem for UTI. Kyle catheter place by Dr. Meraz on 11/25. Urology reconsulted on 01/01 for replacement of Kyle catheter. Status post urine cath leakage, urology was reconsulted on 12/14, per patient, intermittent leaking. At that time patient declined catheter exchange with no urological intervention. Blood cultures NGTD. Avoid nephrotoxins Trend creatinine Receiving bolus 1L NS, continue fluid resuscitation. Start IVF NS 100 ml/hr. If not responding to fluid resuscitation and if LA > 4 will consult rapid extractor operator for evaluation Nonproductive cough Chest x-ray ordered and reviewed, examination quality is less than optimal due to patient body habitus. No acute finding appreciated. Diabetes Mellitus insulin dependent, uncontrolled A1c is 9.7 Monitor Accu-Cheks, continue sliding scale insulin. Continue Levemir 30 units subq in am and 32 units subq qhs. Start prandial insulin coverage, Novolog 3 units TID before each meal. Continue to monitor and adjust the regimen as needed. Encouraged compliance with ordered ADA diet. Chronic pain. Home medications baclofen, morphine, oxycodone. Continue Oramorph. Sleep apnea Insomnia - Continue CPAP at night - Continue home medications Ambien PRN & Trazadone 200 qHS. BIPAP at night. Morbid obesity: BMI 97.9. Outpatient general surgery referral needed for possible surgical interventions. Chronic pressure ulcers: Wound care team following. Patient turning himself. Anxiety and depression: no homicidal or suicidal ideations Was evaluated by psych in the ER, Destinee acted lifted, did not meet inpatient psychiatric and admission criteria. Patient has long history of being on psychiatric medication, currently on Lexapro. Previously was on [place] and did not do well with mood on this. Psychiatry follow-up appreciated. Hyperlipidemia: Continue Lipitor. Hypothyroidism: Continue levothyroxine. Substance use: tox screen on admission significant for opiates, benzos, cannabinoids. Constipation: Last BM documented today 12/27. Laxatives available as needed. Other written to RN to administer PRN laxatives. DVT prophylaxis: On Xarelto DNR status Palliative care following. Patient is with sevee sepsis at this time styarted trisha, ID to reevaluate also urology for kyle to reevaluate. Fluid resuscitation , if LA > 4 and or not responding to IVF resuscitation will consult ID specialist Critical time: 40 minutes Discussed with the patient, nurse, [facility] Problem Qualifiers (1) Morbidly obese: Qualified Code: E66.01 - Morbid obesity, unspecified obesity type (2) Pressure ulcer: Sarahi Cade MD January 02, 2017 13:29
[2017-01-02 14:25] LABS: ALKALINE PHOSPHATASE 101 U/L (45-117); ALT (GPT) 16 U/L (12-78); AST (GOT) 27 U/L (15-37); TOTAL BILIRUBIN ADULT 0.7 MG/DL (0.2-1.0)
[2017-01-02] MEDS ORDERED: ACETAMINOPHEN 325 MG TAB PO PRN (14:45)
[2017-01-02] MEDS ORDERED: ACETAMINOPHEN 1000 MG/100 ML VIAL IV ONE (14:45)
[2017-01-02] MEDS ORDERED: ERTAPENEM INJ 1,000 MG in SODIUM CHLORIDE 0.9% INJ 100 ML IV SCH (15:00)
[2017-01-02] MEDS: NYSTAT/DIPHENHY/LIDO MOUTHWASH (Adult) 120ML SWISH-SWAL SCH ×2 (17:36→20:37)
[2017-01-02] MEDS: BACLOFEN 20 MG TAB PO PRN (17:37)
[2017-01-02] MEDS: NAPHAZOLINE HCL 0.012% OPHT SOLN 15 ML BOTTLE RIGHT EYE PRN (17:37)
[2017-01-02] MEDS: RIVAROXABAN 20 MG TAB PO SCH (20:37)
[2017-01-02] MEDS: ESCITALOPRAM OXALATE 20 MG TAB PO SCH (20:37)
[2017-01-02] MEDS: TOLTERODINE TARTRATE 4 MG CAP LA PO SCH (20:37)
[2017-01-02] MEDS: traZODone HCL 100 MG TAB PO SCH (20:39)
[2017-01-03] VITALS: BP 100/58; PULSE 106; RESP 24; TEMP 99; O2SAT 91
[2017-01-03] MEDS: MORPHINE SULFATE 100 MG CONTROLLED RELEASE TAB PO SCH ×3 (02:00→18:00)
[2017-01-03] MEDS: MORPHINE SULFATE 30 MG CONTROLLED RELEASE TAB PO SCH ×3 (02:00→18:00)
[2017-01-03] MEDS: INSULIN ASPART SUPPLEMENTAL SCALE SQ SCH ×4 (05:56→21:00)
[2017-01-03] MEDS: INSULIN DETEMIR 100 UNITS/ML VIAL SQ SCH ×2 (05:56→22:36)
[2017-01-03] MEDS: MIDODRINE 5 MG TAB PO SCH ×3 (05:57→22:25)
[2017-01-03] MEDS: LEVOTHYROXINE SODIUM 50 MCG TAB PO SCH (05:57)
[2017-01-03] MEDS: OXYBUTYNIN CHLORIDE 5 MG TAB PO SCH ×3 (05:57→22:25)
[2017-01-03 06:55] LABS: AUTOMATED NEUTROPHIL # 18.7 TH/MM3 (1.8-7.7); BASOPHIL % 0.2 % (0.0-2.0); EOSINOPHIL # 0.1 TH/MM3 (0-0.4); EOSINOPHIL % 0.3 % (0.0-4.0); HEMATOCRIT 30.9 % (39.0-51.0); HEMO FLAGS DIFF FINAL; LYMPHOCYTE # 0.8 TH/MM3 (1.0-4.8); MEAN CELL VOLUME 76.5 FL (80.0-100.0); MEAN CORPUSCULAR HEMOGLOBIN 23.8 PG (27.0-34.0); MEAN CORPUSCULAR HGB CONC 31.1 % (32.0-36.0); MONO % 5.6 % (0.0-8.0); NEUT % 89.9 % (16.0-70.0); PLATELET COUNT 275 TH/MM3 (150-450); RED BLOOD COUNT 4.04 MIL/MM3 (4.50-5.90); RED CELL DISTRIBUTION WIDTH 22.3 % (11.6-17.2); WHITE BLOOD COUNT 20.8 TH/MM3 (4.0-11.0)
[2017-01-03 07:20] LABS: ALT (GPT) 16 U/L (12-78); ANION GAP 9 MEQ/L (5-15); AST (GOT) 37 U/L (15-37); BICARBONATE 25.5 MEQ/L (21.0-32.0); BLOOD UREA NITROGEN 35 MG/DL (7-18); CHLORIDE 106 MEQ/L (98-107); GLOMERULAR FILTRATION RATE 45 ML/MIN (>89); MAGNESIUM 2.2 MG/DL (1.5-2.5); POTASSIUM 4.2 MEQ/L (3.5-5.1); SODIUM (NA) 140 MEQ/L (136-145)
[2017-01-03 07:23] LABS: ALKALINE PHOSPHATASE 130 U/L (45-117); TOTAL BILIRUBIN ADULT 0.5 MG/DL (0.2-1.0)
[2017-01-03] MEDS: NAPHAZOLINE HCL 0.012% OPHT SOLN 15 ML BOTTLE RIGHT EYE PRN (07:56)
[2017-01-03 08:00] VITALS: BP 140/60; PULSE 141; RESP 12; TEMP 101.9; O2SAT 98
[2017-01-03] MEDS: INSULIN ASPART 1,000 UNITS/10 ML VIAL SQ SCH ×3 (08:08→17:00)
[2017-01-03] MEDS: NYSTAT/DIPHENHY/LIDO MOUTHWASH (Adult) 120ML SWISH-SWAL SCH ×4 (08:10→21:00)
[2017-01-03] MEDS: GABAPENTIN 300 MG CAP PO SCH ×3 (08:11→17:18)
[2017-01-03] MEDS: ASCORBIC ACID 500 MG TAB PO SCH ×2 (08:11→22:25)
[2017-01-03] MEDS: FAMOTIDINE 20 MG TAB PO SCH (08:11)
[2017-01-03] MEDS: SODIUM CHLORIDE 0.9% FLUSH 10 ML FLUSH IV FLUSH SCH ×2 (08:11→21:00)
[2017-01-03] MEDS: DOCUSATE SODIUM 50 MG/SENNA 8.6 MG TAB PO SCH ×2 (08:11→21:00)
[2017-01-03] MEDS: ATORVASTATIN 40 MG TAB PO SCH (08:11)
[2017-01-03] MEDS: buPROPion HCL 150 MG SUSTAINED RELEASE TAB PO SCH (08:11)
[2017-01-03] MEDS: LACTOBACILLUS ACIDOPHILUS TAB PO SCH ×3 (08:11→17:18)
[2017-01-03] MEDS: SODIUM CHLOR 0.9% 1000 ML INJ 1,000 ML IV SCH ×2 (08:14→18:05)
[2017-01-03] MEDS: CLOTRIMAZOLE 1% CREAM 15 GM TOPICAL PRN (08:16)
[2017-01-03] MEDS: POVIDONE IODINE 10% OINT 30 GM TUBE TOPICAL SCH (08:16)
[2017-01-03] MEDS: NYSTATIN 100,000 U/GM PWD 15 GM BTL TOPICAL SCH ×2 (08:37→21:00)
[2017-01-03] MEDS: CLOTRIMAZOLE 1% CREAM 15 GM TOPICAL SCH ×2 (08:37→21:00)
[2017-01-03] MEDS: COLLAGENASE OINT 30 GM TUBE TOPICAL SCH (08:37)
[2017-01-03] MEDS: ACETAMINOPHEN 325 MG TAB PO PRN (08:43)
--- NOTE | 2017-01-03 08:47 | HHI.PR ---
Subjective Remarks Patient with bipap on. Says she has some pain in his left eye and redness. Had diarrhea. No n/v. Eating good. Denies fevers overnight. Feels tires. Objective Vitals Vital Signs Date Time Temp Pulse Resp B/P Pulse Ox O2 Delivery O2 Flow Rate FiO2 01/03/17 00:00 99.0 106 24 100/58 91 01/02/17 20:00 90 21 01/02/17 20:00 92 Bi-Pap 01/02/17 20:00 98.9 110 26 91/55 92 01/02/17 16:00 99.6 104 14 110/57 94 01/02/17 13:00 101.2 108 12 74/35 96 01/02/17 12:00 99.4 125 16 90/48 94 I/O 01/02/17 01/02/17 01/02/17 01/03/17 01/03/17 01/03/17 06:59 14:59 22:59 06:59 14:59 22:59 Intake Total 640 ml 1296 ml 2970 ml 1195 ml Output Total 750 ml 525 ml 700 ml 1150 ml Balance -110 ml 771 ml 2270 ml 45 ml Intake Oral 640 ml 475 ml 720 ml 440 ml IV Total 821 ml 2250 ml 755 ml Output Urine Total 750 ml 525 ml 700 ml 1150 ml # Bowel Movements 0 1 0 0 Result Diagram: 01/03/17 0621 01/03/17 0621 Imaging Last Impressions Chest X-Ray 01/02/17 0000 Signed Impressions: Service Date/Time: Monday, January 02, 2017 09:01 - CONCLUSION: Examination quality is less than optimal due to patient body habitus. Given the technique, no acute finding is appreciated. Elliott Fernandez MD Objective Remarks GENERAL: Young morbidly obese 26 yo male, alert and orieted x3. SKIN: Warm and dry. HEAD: Atraumatic. Normocephalic. EYES: Left eyelid inflamed, redness and swelling. Pupils equal and round. No scleral icterus. No injection or drainage. ENT: No nasal bleeding or discharge. Mucous membranes pink and moist. NECK: Trachea midline. No JVD. CARDIOVASCULAR: Regular rate and rhythm. RESPIRATORY: No accessory muscle use. Clear to auscultation. Breath sounds equal bilaterally. GASTROINTESTINAL: Abdomen soft, obese, non-tender, nondistended. + BSx4Q. : Kyle in with cloudy, dark urine. MUSCULOSKELETAL: Extremities without clubbing, cyanosis, or edema. No obvious deformities. NEUROLOGICAL: Awake and alert. No obvious cranial nerve deficits. Motor grossly within normal limits UE. Five out of 5 muscle strength in the arms. Left BKA. Normal speech. PSYCHIATRIC: Appropriate mood and affect; insight and judgment normal. Procedures 11/25- S/P flexible cystoscopy with replacement of kyle catheter (Councill catheter) Date of Insertion: Nov 25, 2016 A/P Problem List: (1) UTI (urinary tract infection) ICD Code: N39.0 Status: Resolved (2) Chronic pain ICD Code: G89.29 Status: Chronic (3) Type 2 diabetes mellitus ICD Code: E11.9 Status: Chronic (4) Morbidly obese ICD Code: E66.01 Status: Chronic (5) Depression ICD Code: F32.9 Status: Chronic (6) Pressure ulcer ICD Code: L89.90 Status: Chronic (7) Sleep apnea ICD Code: G47.30 Status: Chronic (8) Hypothyroidism ICD Code: E03.9 Status: Chronic Assessment and Plan 25 y/o male with a history of paraplegia, neurogenic bladder, HTN, chronic reoccurring DVT, chronic pain, LAKA, sleep apnea, CHF was brought into the ED as a parker act because he was threatening staff and using a taser. At time of admission he reported feeling fatigued and experienced nausea and vomiting almost every night for the past month. Furthermore, he complained of hematuria and was told last year at [facility] he had gastric ulcers, but feels he is still bleeding. Last EGD done at [place] was 2012. He reported multiple wounds on his sacrum, back, right thigh and left hip, and has not had wound care in the 2 weeks preceding hospitalization. Patient also reported his Kyle catheter has not been replaced in 3 months and the last time required cystoscopy. Severe Sepsis (01/02/17 noted fever 102.1, leukocytosis 28.6k, BP 74/35, LISA source poss UTI, poss C diff)- Suspected source urinary tract infection, prior recent h/o ESBL, MDRO. Patient also with diarrhea, C diff pending Leukocytosis WBC 28.6 on 01/02. Fever of 102.1 this am. Tylenol administered. Tachycardic, 107. Creatinine increase from 0.74 to 1.6 today 01/02. Systolic BP currently 90/40. Lactic acid pending. Blood cultures ordered and pending Repeat urine culture ordered for post Kyle catheter insertion today by urology. Sputum culture ordered. Started Ertapenem per protocol. ID consulted, appreciate input. ID consulted, appreciate input. NS 1L Bolus x4 as noted SBP 74/35. Monitor BP closely continue with fluid resuscitation. If doesn't respond will move patient to ICU, also LA is pending Start IVF NS 100 ml/hr. Acute kidney injury: suspect secondary to urinary tract infection, severe sepsis with end organ damage Neurogenic bladder Blood pressure stable. Continue Midodrine. Continue Oxybutynin 5mg bid. Status post Levaquin and Ertapenem for UTI. Kyle catheter place by Dr. Meraz on 11/25. Urology reconsulted on 01/01 for replacement of Kyle catheter. Status post urine cath leakage, urology was reconsulted on 12/14, per patient, intermittent leaking. At that time patient declined catheter exchange with no urological intervention. Blood cultures NGTD. Avoid nephrotoxins Trend creatinine Receiving bolus 1L NS, continue fluid resuscitation. Start IVF NS 100 ml/hr. If not responding to fluid resuscitation and if LA > 4 will consult patient advocate for evaluation. LA is normal. BP better after receiving total of 4L NS. Fair urine OP. Kidney indices however getting worse, will consult nephrology for evaluation Nonproductive cough Chest x-ray ordered and reviewed, examination quality is less than optimal due to patient body habitus. No acute finding appreciated. Diabetes Mellitus insulin dependent, uncontrolled A1c is 9.7 Monitor Accu-Cheks, continue sliding scale insulin. Continue Levemir 30 units subq in am and 32 units subq qhs. Start prandial insulin coverage, Novolog 3 units TID before each meal. Continue to monitor and adjust the regimen as needed. Encouraged compliance with ordered ADA diet. Chronic pain. Home medications baclofen, morphine, oxycodone. Continue Oramorph. Sleep apnea Insomnia - Continue CPAP at night - Continue home medications Ambien PRN & Trazadone 200 qHS. BIPAP at night. Morbid obesity: BMI 97.9. Outpatient general surgery referral needed for possible surgical interventions. Chronic pressure ulcers: Wound care team following. Patient turning himself. Anxiety and depression: no homicidal or suicidal ideations Was evaluated by psych in the ER, Destinee acted lifted, did not meet inpatient psychiatric and admission criteria. Patient has long history of being on psychiatric medication, currently on Lexapro. Previously was on [place] and did not do well with mood on this. Psychiatry follow-up appreciated. Hyperlipidemia: Continue Lipitor. Hypothyroidism: Continue levothyroxine. Substance use: tox screen on admission significant for opiates, benzos, cannabinoids. Constipation: Last BM documented today 12/27. Laxatives available as needed. Other written to RN to administer PRN laxatives. DVT prophylaxis: On Xarelto DNR status Palliative care following. Patient is with severe sepsis at this time on invanz, ID to reevaluate also urology for saroj to reevaluate. Consult nephrology, kidney function is not improving. Discussed with the patient, nurse Problem Qualifiers (1) Morbidly obese: Qualified Code: E66.01 - Morbid obesity, unspecified obesity type (2) Pressure ulcer: Sarahi Cade MD January 03, 2017 08:47 Sarahi Cade MD January 03, 2017 08:47
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
[2017-01-03 12:00] VITALS: BP 112/64; PULSE 112; RESP 12; TEMP 98.6; O2SAT 91
[2017-01-03 12:37] LABS: C. DIFF EPI 027 PRESUMPTIVE NEGATIVE (NEGATIVE); C. DIFF TOXIN PCR NEGATIVE (NEGATIVE)
--- NOTE | 2017-01-03 15:01 | HHI.IDPN ---
Subjective Subjective Remarks Reconsulted 2/2 new fever Pt is febrile x 2 days and confused He has temp up to 102.1 His WBC is 23 K he is having liquid diarrhea He is growing E .coli in blood clx Urine is cooudy , red Antibiotics meropenem zyvox fluconazol Past Medical History paraplegia Allergies: Coded Allergies: Adhesives (Verified Allergy, Severe, 11/10/16) Azactam (Verified Allergy, Mild, rash, 11/10/16) Mild localized rash. Confirm with patient on January 11, 2016. Clindamycin (Verified Allergy, Mild, rash, 11/10/16) Mild localized rash. Confirm with patient on January 11, 2016. Penicillin (Verified Allergy, Mild, rash, 11/10/16) Mild localized rash. Confirm with patient on January 11, 2016. *MDRO Multi-Drug Resistant Organism (Verified Adverse Reaction, Unknown, ) E. coli ESBL positive (urine) - 07/2012, 11/29/2016 MRSA (foot- 10/27/15),(blood-12/2015),(ankle-04/16/16); MRSA PCR (nares) positive - 01/10/16; ESBL+Klebsiella Pneumoniae & VRE (urine-05/23/16) MDR Pseudomonas aeruginosa (urine) - 05/23/16 Uncoded Allergies: CEFEPIME (Allergy, Mild, Rash, 01/11/16) Mild localized rash. Confirm with patient on January 11, 2016. Objective . Vital Signs Date Time Temp Pulse Resp B/P Pulse Ox O2 Delivery O2 Flow Rate FiO2 01/03/17 14:07 Nasal Cannula 3.00 01/03/17 12:00 98.6 112 12 112/64 91 01/03/17 11:48 17 01/03/17 11:48 17 01/03/17 09:43 17 01/03/17 09:43 17 01/03/17 08:10 96 Nasal Cannula 2.00 01/03/17 08:00 101.9 141 12 140/60 98 01/03/17 00:00 99.0 106 24 100/58 91 01/02/17 20:00 90 21 01/02/17 20:00 92 Bi-Pap 01/02/17 20:00 98.9 110 26 91/55 92 01/02/17 16:00 99.6 104 14 110/57 94 01/02/17 01/02/17 01/03/17 14:59 22:59 06:59 Intake Total 1296 ml 2970 ml 1195 ml Output Total 525 ml 700 ml 1150 ml Balance 771 ml 2270 ml 45 ml Intake Oral 475 ml 720 ml 440 ml IV Total 821 ml 2250 ml 755 ml Output Urine Total 525 ml 700 ml 1150 ml # Bowel Movements 1 0 0 . Laboratory Tests Test 01/02/17 01/03/17 10:50 06:21 White Blood Count 28.6 TH/MM3 20.8 TH/MM3 Red Blood Count 4.16 MIL/MM3 4.04 MIL/MM3 Hemoglobin 9.8 GM/DL 9.6 GM/DL Hematocrit 31.5 % 30.9 % Mean Corpuscular Volume 75.8 FL 76.5 FL Mean Corpuscular Hemoglobin 23.5 PG 23.8 PG Mean Corpuscular Hemoglobin 31.0 % 31.1 % Concent Red Cell Distribution Width 21.8 % 22.3 % Platelet Count 354 TH/MM3 275 TH/MM3 Mean Platelet Volume 8.0 FL 8.3 FL Neutrophils (%) (Auto) 87.6 % 89.9 % Lymphocytes (%) (Auto) 4.3 % 4.0 % Monocytes (%) (Auto) 7.4 % 5.6 % Eosinophils (%) (Auto) 0.3 % 0.3 % Basophils (%) (Auto) 0.4 % 0.2 % Neutrophils # (Auto) 25.1 TH/MM3 18.7 TH/MM3 Lymphocytes # (Auto) 1.2 TH/MM3 0.8 TH/MM3 Monocytes # (Auto) 2.1 TH/MM3 1.2 TH/MM3 Eosinophils # (Auto) 0.1 TH/MM3 0.1 TH/MM3 Basophils # (Auto) 0.1 TH/MM3 0.0 TH/MM3 CBC Comment DIFF FINAL DIFF FINAL Differential Comment Laboratory Tests Test 01/02/17 01/02/17 01/03/17 10:50 14:26 06:21 Sodium Level 135 MEQ/L 140 MEQ/L Potassium Level 4.3 MEQ/L 4.2 MEQ/L Chloride Level 99 MEQ/L 106 MEQ/L Carbon Dioxide Level 27.8 MEQ/L 25.5 MEQ/L Anion Gap 8 MEQ/L 9 MEQ/L Blood Urea Nitrogen 31 MG/DL 35 MG/DL Creatinine 1.60 MG/DL 1.79 MG/DL Estimat Glomerular Filtration 52 ML/MIN 45 ML/MIN Rate Random Glucose 199 MG/DL 182 MG/DL Calcium Level 8.6 MG/DL 8.0 MG/DL Total Bilirubin 0.7 MG/DL 0.5 MG/DL Aspartate Amino Transf 27 U/L 37 U/L (AST/SGOT) Alanine Aminotransferase 16 U/L 16 U/L (ALT/SGPT) Alkaline Phosphatase 101 U/L 130 U/L Total Protein 7.9 GM/DL 7.5 GM/DL Albumin 2.6 GM/DL 2.3 GM/DL Lactic Acid Level 0.8 mmol/L 1.0 mmol/L Phosphorus Level 5.1 MG/DL Magnesium Level 2.2 MG/DL Microbiology Date/Time Procedure Status Source Growth 01/02/17 10:50 Aerobic Blood Culture - Preliminary Resulted Blood Peripheral NO GROWTH IN 1 DAY 01/02/17 10:50 Anaerobic Blood Culture - Preliminary Resulted Escherichia Coli 01/02/17 10:55 Aerobic Blood Culture - Preliminary Resulted Blood Peripheral NO GROWTH IN 1 DAY 01/02/17 10:55 Anaerobic Blood Culture - Preliminary Resulted Gram Negative Aj 01/03/17 04:30 Gram Stain - Final Resulted Sputum Expectorated Sputum 01/03/17 04:30 Sputum Culture Resulted Sputum Expectorated Sputum Pending Imaging Last Impressions Chest X-Ray 01/02/17 0000 Signed Impressions: Service Date/Time: Monday, January 02, 2017 09:01 - CONCLUSION: Examination quality is less than optimal due to patient body habitus. Given the technique, no acute finding is appreciated. Elliott Fernandez MD Physical Exam CONSTITUTIONAL/GENERAL: This is a morbudly obese patient, in no apparent distress. He is very confused TUBES/LINES/DRAINS: SKIN: No jaundice, rashes, or lesions. HEAD: Atraumatic. Normocephalic. EYES: RICO EOMI ENT: Hearing grossly normal. moist oral mucosae CARDIOVASCULAR: distant heart sounds, no murmurs RESPIRATORY/CHEST: unlabored respirations. clear to auscultation GASTROINTESTINAL: markedly obese, not tender Incontinent of liquid light brown stool GENITOURINARY:Daiz catheter in place with very cloudy and bloody urine MUSCULOSKELETAL: Sp L AKA, healed BACK: small L buttock wound stage III no purulence or erythema, not appearing infected - essentially unchanged since last time I examined him Multiple excoriations noted NEUROLOGICAL Lethargic, difficult to arouse; when arauses he is confused oriented x 1 only ; speech is incoherent Moves b/l upper extremities; paraplegic PSYCHIATRIC: calm, cooperative Assessment & Plan Remarks Parapleguia 2/2 traumatic SCI Morbid obesity New severe sepsis, E.coli from comlicated UTI 2/2 indwelling diaz 2/2 neurogenic bladder 2/2 paraplegia Clinically sepsic (fever, tachycardia, hypoxia) - ARF 2/2 sepsis - encephalopathy 2/2 sepsis -pt has diaz > 2 weeks - critically ill H/o MDROs (ESBL, VRE) including recent UTI 2/2 ESBL + Kleb pneiumo, Proteus H/o adverse reactions to multiple abx: including azacta, cefepime, PCN, but tolerates carbapenem wo issues in the past including during this admission L b uttock chronic decub, not actively infected Diarrhea, hospi acquired, h/o recent abx use Pt is DNR - chng ertapenem to meropenem - pt's DIAZ needs to be changed as soon as possible : consult urology 2/2 technically difficult diaz in thi morbidly obese pt - ro C,diff radha garcia RN dw charge nurse Radha Leal MD January 03, 2017 15:01
[2017-01-03] MEDS ORDERED: ASP: Documented ESBL, MDR A baumannii or P. aeruginosa PRN (15:15)
[2017-01-03] MEDS ORDERED: MISCELLANEOUS PHARMACY INFORMATION XX PRN (15:15)
[2017-01-03 16:00] VITALS: BP 122/56; PULSE 104; RESP 14; TEMP 96.3; O2SAT 90
[2017-01-03] MEDS: ALPRAZolam 1 MG TAB PO PRN (16:26)
[2017-01-03] MEDS: MEROPENEM INJ 1,000 MG in SODIUM CHLORIDE 0.9% INJ 100 ML IV SCH ×2 (16:46→23:57)
[2017-01-03 17:03] LABS: BACTERIA, URINE MANY /hpf; BLOOD, URINE LARGE (NEG); GLUCOSE,URINE NEG (NEG); KETONE, URINE NEG (NEG); NITRITE,URINE NEG (NEG); SQUAMOUS EPITHELIAL CELL URINE 12 /hpf (0-5); TRANSITIONAL EPI CELLS, URINE 7 /hpf
[2017-01-03 17:04] LABS: COMMENT (UR) CATH-CULTURE IND; CULTURE IF INDICATED CATH CULTURE IND; URINE COLOR RED (YELLW/STRAW)
[2017-01-03 20:00] VITALS: BP 103/81; PULSE 117; RESP 16; TEMP 98.2; O2SAT 94
[2017-01-03] MEDS: RIVAROXABAN 20 MG TAB PO SCH (22:25)
[2017-01-03] MEDS: TOLTERODINE TARTRATE 4 MG CAP LA PO SCH (22:25)
[2017-01-03] MEDS: ESCITALOPRAM OXALATE 20 MG TAB PO SCH (22:26)
[2017-01-03] MEDS: HYDROmorphone HCL PF 1 MG/ML VIAL IV PUSH PRN (22:29)
[2017-01-03] MEDS: traZODone HCL 100 MG TAB PO SCH (23:57)
[2017-01-04] VITALS: BP 109/79; PULSE 122; RESP 16; TEMP 99; O2SAT 91
[2017-01-04] MEDS: MORPHINE SULFATE 30 MG CONTROLLED RELEASE TAB PO SCH ×3 (01:52→17:52)
[2017-01-04] MEDS: MORPHINE SULFATE 100 MG CONTROLLED RELEASE TAB PO SCH ×3 (01:52→17:52)
[2017-01-04] MEDS: ACETAMINOPHEN 325 MG TAB PO PRN (03:34)
[2017-01-04] MEDS: ALPRAZolam 1 MG TAB PO PRN ×2 (03:34→14:27)
[2017-01-04] MEDS: BACLOFEN 20 MG TAB PO PRN ×2 (03:34→14:27)
[2017-01-04] MEDS: SODIUM CHLOR 0.9% 1000 ML INJ 1,000 ML IV SCH ×2 (05:00→14:10)
[2017-01-04] MEDS: INSULIN ASPART SUPPLEMENTAL SCALE SQ SCH ×4 (06:41→21:00)
[2017-01-04] MEDS: MIDODRINE 5 MG TAB PO SCH ×3 (06:42→22:18)
[2017-01-04] MEDS: LEVOTHYROXINE SODIUM 50 MCG TAB PO SCH (06:42)
[2017-01-04] MEDS: OXYBUTYNIN CHLORIDE 5 MG TAB PO SCH ×3 (06:42→22:00)
[2017-01-04] MEDS: INSULIN DETEMIR 100 UNITS/ML VIAL SQ SCH ×2 (07:00→21:00)
--- NOTE | 2017-01-04 07:30 | HHI.PR ---
Subjective Patient symptoms today called to change catheter. Has been having fevers. c/o abdominal pain. denies nausea. Objective Vital Signs Vital Signs Date Time Temp Pulse Resp B/P Pulse Ox O2 Delivery O2 Flow Rate FiO2 01/04/17 00:00 99.0 122 16 109/79 91 01/03/17 22:59 18 01/03/17 20:00 98.2 117 16 103/81 94 01/03/17 16:00 96.3 104 14 122/56 90 01/03/17 14:07 Nasal Cannula 3.00 01/03/17 12:00 98.6 112 12 112/64 91 01/03/17 11:48 17 01/03/17 11:48 17 01/03/17 09:43 17 01/03/17 09:43 17 01/03/17 08:10 96 Nasal Cannula 2.00 01/03/17 08:00 101.9 141 12 140/60 98 Result Diagram: 01/03/1762001/03/17620 Objective Remarks NAD. on CPAP RRR abd soft, morbidly obese Medications and IVs Current Medications Medications (Trade) Dose Ordered Sig/Shyam Route Start Time Stop Time Status Last Admin (NS Flush) 2 ml UNSCH PRN IV FLUSH 11/10/16 21:45 11/28/16 07:09 (NS Flush) 2 ml BID IV FLUSH 11/11/16 09:00 01/02/17 20:36 (Narcan Inj) 0.4 mg UNSCH PRN IV 11/10/16 21:45 (Xanax) 2 mg Q6HR PRN PO 11/11/16 02:00 01/04/17 03:34 (Vitamin C) 500 mg BID PO 11/11/16 09:00 01/03/17 22:25 (Lipitor) 40 mg DAILY PO 11/11/16 09:00 01/03/17 08:11 (Lioresal) 20 mg Q6HR PRN PO 11/11/16 02:00 01/04/17 03:34 (Peridex 0.12% Liq) 10 ml BID PRN SWISH-SPIT 11/11/16 02:00 (Lotrimin 1% Cream) 1 applic DAILY PRN TOPICAL 11/11/16 02:00 01/03/17 08:16 (Lasix) 40 mg BID PO 11/11/16 09:00 Hold 11/28/16 08:34 (Synthroid) 50 mcg DAILY@06 PO 11/11/16 06:00 01/04/17 06:42 (Oramorph Sr) 30 mg Q8H PO 11/11/16 02:00 01/03/17 10:49 (Oramorph Sr) 100 mg Q8H PO 11/11/16 02:00 01/03/17 10:48 (KCl) 20 meq DAILY PO 11/11/16 09:00 Hold 11/16/16 08:47 (Phenergan) 25 mg Q8HR PRN PO 11/11/16 02:00 12/29/16 13:52 (Pepcid) 20 mg DAILY PO 11/11/16 09:00 01/03/17 08:11 (Xarelto) 20 mg HS PO 11/11/16 21:00 01/03/17 22:25 (Mylicon Chew) 160 mg ACHS PRN CHEW 11/11/16 02:00 12/28/16 12:42 (Zofran Inj) 4 mg Q6HR PRN IV PUSH 11/11/16 03:15 12/30/16 11:13 (D50w (Vial) Inj) 25 ml UNSCH PRN IV PUSH 11/12/16 11:45 (Glucagon Inj) 1 mg UNSCH PRN OTHER 11/12/16 11:45 (Citroma Liq) 600 ml Q24H PRN PO 11/13/16 14:45 01/02/17 11:47 (Mycostatin Powder) 1 applic BID TOPICAL 11/13/16 21:00 01/03/17 21:00 (Tylenol) 650 mg Q4H PRN PO 11/18/16 17:30 01/04/17 03:34 (Santyl Oint) 1 applic DAILY TOPICAL 11/23/16 12:45 01/03/17 08:37 (Betadine 10% Oint) 1 applic DAILY TOPICAL 11/23/16 18:32 01/03/17 08:16 (NovoLOG INJ) 12 units TIDAC SQ 11/30/16 17:00 Hold 11/30/16 18:43 (Proamatine) 10 mg Q8HR PO 11/30/16 21:00 01/04/17 06:42 (Roxicodone) 30 mg Q4H PRN PO 12/06/16 12:30 01/04/17 04:16 (Wellbutrin Sr) 150 mg DAILY PO 12/10/16 16:15 01/03/17 08:11 (Lexapro) 20 mg HS PO 12/10/16 21:00 01/03/17 22:26 (Erin-Colace) 1 tab BID PO 12/10/16 21:00 01/03/17 08:11 (Ambien) 5 mg HS PRN PO 12/10/16 21:00 01/01/17 22:52 (Benadryl 2% Cream) 1 applic TID PRN TOPICAL 12/11/16 08:15 12/11/16 16:09 (Neurontin) 300 mg TID PO 12/12/16 18:00 01/03/17 17:18 (Ditropan) 5 mg Q8HR PO 12/14/16 14:00 01/04/17 06:42 (Detrol La) 4 mg HS PO 12/14/16 21:00 01/03/17 22:25 (Miralax) 17 gm DAILY PRN PO 12/19/16 09:45 12/26/16 10:17 (Desyrel) 200 mg HS@23 PO 12/21/16 23:00 01/03/17 23:57 (Lactulose Liq) 30 ml DAILY PRN PO 12/24/16 12:15 01/02/17 11:47 (Fleets Enema (Adult)) 133 ml UNSCH PRN RECTAL 12/26/16 11:45 12/26/16 12:49 (Levemir Inj) 32 units HS SQ 12/29/16 21:00 01/03/17 22:36 (Dilaudid Pf Inj) 1.5 mg Q4H PRN IV PUSH 12/31/16 12:30 01/07/17 12:29 01/03/17 22:29 (Lotrimin 1% Cream) 1 applic Q12HR TOPICAL 01/01/17 09:00 01/03/17 21:00 Insulin Aspart 3 units 3 units TIDAC SQ 01/02/17 12:00 01/03/17 12:20 (NS 1000 ml Inj) 1,000 ml @ 100 mls/hr Q10H IV 01/02/17 13:00 01/03/17 18:05 (Lactinex) 1 tab TID PO 01/02/17 13:00 01/03/17 17:18 (Clear Eyes Redness Relief 0.012% Opth Soln) 1 drop Q6H PRN RIGHT EYE 01/02/17 13:45 01/03/17 07:56 Multi-Ingredient Mouthwash/Gargle 10 ml 10 ml QID SWISH-SWAL 01/02/17 18:00 01/16/17 17:59 01/03/17 17:19 (Merrem Inj/NS Inj) 100 ml @ 200 mls/hr Q8H IV 01/03/17 16:00 01/03/17 23:57 Assessment and Plan Problem List: (1) Neurogenic bladder ICD Code: N31.9 Status: Chronic (2) Paraplegia ICD Code: G82.20 Status: Chronic (3) Sepsis ICD Code: A41.9 Status: Resolved Assessment and Plan 18 Fr umkumiut Tip catheter exchanged over wire without difficulty. Continue to change monthly. Antibiotics per ID. Timoteo Zhang MD January 04, 2017 07:30
[2017-01-04] MEDS: INSULIN ASPART 1,000 UNITS/10 ML VIAL SQ SCH ×3 (08:00→16:41)
[2017-01-04] MEDS: MEROPENEM INJ 1,000 MG in SODIUM CHLORIDE 0.9% INJ 100 ML IV SCH ×2 (08:27→15:52)
[2017-01-04] MEDS: GABAPENTIN 300 MG CAP PO SCH ×3 (08:30→17:49)
[2017-01-04] MEDS: buPROPion HCL 150 MG SUSTAINED RELEASE TAB PO SCH (08:30)
[2017-01-04] MEDS: FAMOTIDINE 20 MG TAB PO SCH (08:30)
[2017-01-04] MEDS: NYSTAT/DIPHENHY/LIDO MOUTHWASH (Adult) 120ML SWISH-SWAL SCH ×4 (08:30→21:00)
[2017-01-04] MEDS: LACTOBACILLUS ACIDOPHILUS TAB PO SCH ×3 (08:30→17:49)
[2017-01-04] MEDS: DOCUSATE SODIUM 50 MG/SENNA 8.6 MG TAB PO SCH ×2 (08:30→22:19)
[2017-01-04] MEDS: SODIUM CHLORIDE 0.9% FLUSH 10 ML FLUSH IV FLUSH SCH ×2 (08:31→21:00)
[2017-01-04] MEDS: ATORVASTATIN 40 MG TAB PO SCH (08:31)
[2017-01-04] MEDS: ASCORBIC ACID 500 MG TAB PO SCH ×2 (08:31→22:19)
[2017-01-04] MEDS: CLOTRIMAZOLE 1% CREAM 15 GM TOPICAL SCH ×2 (08:32→21:00)
[2017-01-04] MEDS: POVIDONE IODINE 10% OINT 30 GM TUBE TOPICAL SCH (08:32)
[2017-01-04] MEDS: NYSTATIN 100,000 U/GM PWD 15 GM BTL TOPICAL SCH ×2 (08:32→21:00)
[2017-01-04] MEDS: NAPHAZOLINE HCL 0.012% OPHT SOLN 15 ML BOTTLE RIGHT EYE PRN ×2 (08:33→22:24)
[2017-01-04] MEDS: COLLAGENASE OINT 30 GM TUBE TOPICAL SCH (08:33)
--- NOTE | 2017-01-04 08:34 | HHI.PR ---
Subjective Remarks Sleepy and tired. Reginald was replaced by Dr Zhang urology early morning babysitter today. Patient denies any fever or chills. No n/v/d/c. Had a BM yesterday, diarrhea subsided, C diff is negative. Denies pain. Left eye redness improving. Objective Vitals Vital Signs Date Time Temp Pulse Resp B/P Pulse Ox O2 Delivery O2 Flow Rate FiO2 01/04/17 05:16 18 01/04/17 00:00 99.0 122 16 109/79 91 01/03/17 22:59 18 01/03/17 20:00 98.2 117 16 103/81 94 01/03/17 16:00 96.3 104 14 122/56 90 01/03/17 14:07 Nasal Cannula 3.00 01/03/17 12:00 98.6 112 12 112/64 91 01/03/17 11:48 17 01/03/17 11:48 17 01/03/17 09:43 17 I/O 01/03/17 01/03/17 01/03/17 01/04/17 01/04/17 01/04/17 07:00 15:00 23:00 07:00 15:00 23:00 Intake Total 1195 ml 1494 ml 0 ml 240 ml Output Total 1150 ml 1075 ml 250 ml Balance 45 ml 419 ml -250 ml 240 ml Intake Oral 440 ml 525 ml 0 ml 240 ml IV Total 755 ml 969 ml Output Urine Total 1150 ml 1075 ml 250 ml # Voids 2 # Bowel Movements 0 1 Result Diagram: 01/03/17 0621 01/03/17 0621 Imaging Last Impressions Chest X-Ray 01/02/17 0000 Signed Impressions: Service Date/Time: Monday, January 02, 2017 09:01 - CONCLUSION: Examination quality is less than optimal due to patient body habitus. Given the technique, no acute finding is appreciated. Elliott Fernandez MD Objective Remarks GENERAL: Young morbidly obese 26 yo male, alert and orieted x3. SKIN: Warm and dry. HEAD: Atraumatic. Normocephalic. EYES: Left eyelid inflamed, redness and swelling. Pupils equal and round. No scleral icterus. No injection or drainage. ENT: No nasal bleeding or discharge. Mucous membranes pink and moist. NECK: Trachea midline. No JVD. CARDIOVASCULAR: Regular rate and rhythm. RESPIRATORY: No accessory muscle use. Clear to auscultation. Breath sounds equal bilaterally. GASTROINTESTINAL: Abdomen soft, obese, non-tender, nondistended. + BSx4Q. : Kyle in with cloudy, dark urine. MUSCULOSKELETAL: Extremities without clubbing, cyanosis, or edema. No obvious deformities. NEUROLOGICAL: Awake and alert. No obvious cranial nerve deficits. Motor grossly within normal limits UE. Five out of 5 muscle strength in the arms. Left BKA. Normal speech. PSYCHIATRIC: Appropriate mood and affect; insight and judgment normal. Procedures 11/25- S/P flexible cystoscopy with replacement of kyle catheter (Councill catheter) Date of Insertion: Nov 25, 2016 A/P Problem List: (1) UTI (urinary tract infection) ICD Code: N39.0 Status: Resolved (2) Chronic pain ICD Code: G89.29 Status: Chronic (3) Type 2 diabetes mellitus ICD Code: E11.9 Status: Chronic (4) Morbidly obese ICD Code: E66.01 Status: Chronic (5) Depression ICD Code: F32.9 Status: Chronic (6) Pressure ulcer ICD Code: L89.90 Status: Chronic (7) Sleep apnea ICD Code: G47.30 Status: Chronic (8) Hypothyroidism ICD Code: E03.9 Status: Chronic Assessment and Plan 25 y/o male with a history of paraplegia, neurogenic bladder, HTN, chronic reoccurring DVT, chronic pain, LAKA, sleep apnea, CHF was brought into the ED as a felipe act because he was threatening staff and using a taser. At time of admission he reported feeling fatigued and experienced nausea and vomiting almost every night for the past month. Furthermore, he complained of hematuria and [facility], but feels he is still bleeding. Last EGD done at [facility] was 2012. He reported multiple wounds on his sacrum, back, right thigh and left hip, and has not had wound care in the 2 weeks preceding hospitalization. Patient also reported his Kyle catheter has not been replaced in 3 months and the last time required cystoscopy. Severe Sepsis (01/02/17 noted fever 102.1, leukocytosis 28.6k, BP 74/35, LISA source UTI, bacreremia E coli )- recent h/o ESBL, MDRO. Patient also had diarrhea, C diff negative Leukocytosis WBC 28.6, temp 102 on 01/02. trending down Creatinine increase from 0.74 to 1.6on 01/02 and worsening. Note: Patient refused on multiple occasions to change kyle ( attempts by Dr Zhang and Dr Baez urology and was fired by urology as patient noncompliant). Patient agrees to kyle change, spoke with Dr Zhang urology, appreciate recommendations. Kyle changes 01/04/17. Systolic BP currently 90/40. Lactic acid normal. Blood cultures positive E coli Repeat urine culture ordered for post Kyle catheter insertion 01/[address] Zhang, appreciate recommendations. Sputum culture ordered. Ertapenem changed to meropenem per ID . ID consulted, appreciate recommendations. NS 1L Bolus x4 as noted SBP 74/35 01/02/17. Monitor BP closely continue with fluid resuscitation. BP better controlled. Continue IVF NS 100 ml/hr. Monitor BP closely. Acute kidney injury: suspect secondary to urinary tract infection, severe sepsis with end organ damage. Kyle changed 01/04/17. (note patient refused on multiple occasions to kyle changed). Anticipoate kidney function to imprpve after kyle replaces. Also nephrology is consulted. Neurogenic bladder Blood pressure stable. Continue Midodrine. Continue Oxybutynin 5mg bid. Status post Levaquin and Ertapenem for UTI. Kyle catheter place by Dr. Meraz on 11/25. Urology reconsulted on 01/01 for replacement of Kyle catheter. Status post urine cath leakage, urology was reconsulted on 12/14, per patient, intermittent leaking. At that time patient declined catheter exchange with no urological intervention. Blood cultures NGTD. Avoid nephrotoxins Trend creatinine Receiving bolus 1L NS, continue fluid resuscitation. Start IVF NS 100 ml/hr. If not responding to fluid resuscitation and if LA > 4 will consult powder press operator for evaluation. LA is normal. BP better after receiving total of 4L NS. Fair urine OP. Kidney indices however getting worse, will consult nephrology for evaluation. Kyle changed 01/04, anticipate kidney function to improve. Nonproductive cough Chest x-ray ordered and reviewed, examination quality is less than optimal due to patient body habitus. No acute finding appreciated. Diabetes Mellitus insulin dependent, uncontrolled A1c is 9.7 Monitor Accu-Cheks, continue sliding scale insulin. Continue Levemir 30 units subq in am and 32 units subq qhs. Start prandial insulin coverage, Novolog 3 units TID before each meal. Continue to monitor and adjust the regimen as needed. Encouraged compliance with ordered ADA diet. Chronic pain. Home medications baclofen, morphine, oxycodone. Continue Oramorph. Sleep apnea Insomnia - Continue CPAP at night - Continue home medications Ambien PRN & Trazadone 200 qHS. BIPAP at night. Morbid obesity: BMI 97.9. Outpatient general surgery referral needed for possible surgical interventions. Chronic pressure ulcers: Wound care team following. Patient turning himself. Anxiety and depression: no homicidal or suicidal ideations Was evaluated by psych in the ER, Felipe acted lifted, did not meet inpatient psychiatric and admission criteria. Patient has long history of being on psychiatric medication, currently on Lexapro. Previously was on [place] and did not do well with mood on this. Psychiatry follow-up appreciated. Hyperlipidemia: Continue Lipitor. Hypothyroidism: Continue levothyroxine. Substance use: tox screen on admission significant for opiates, benzos, cannabinoids. Constipation: Last BM documented today 12/27. Laxatives available as needed. Other written to RN to administer PRN laxatives. DVT prophylaxis: On Xarelto DNR status Palliative care following. Patient is with severe sepsis at this time on meropenem IV. Discussed with the patient, nurse Problem Qualifiers (1) Morbidly obese: Qualified Code: E66.01 - Morbid obesity, unspecified obesity type (2) Pressure ulcer: Sarahi Cade MD January 04, 2017 08:34
--- NOTE | 2017-01-04 09:56 | HHI.NPPN ---
Subjective Complaints: Confused, Obesity Renal Problems: Hematuria Renal Failure: Acute Interval History He became encephalopathic last night, pulled out IV. It has since been replaced. Urology changed kyle this morning at bedside. (Neelima Muñoz) Review of Systems General Constitutional: Fatigue (Neelima Muñoz) Objective Data Data 01/03/17 01/04/17 19:00 07:00 Intake Total 1494 ml 240 ml Output Total 1075 ml 250 ml Balance 419 ml -10 ml Intake Oral 525 ml 240 ml IV Total 969 ml Output Urine Total 1075 ml 250 ml # Voids 2 # Bowel Movements 1 Vital Signs Date Time Temp Pulse Resp B/P Pulse Ox O2 Delivery O2 Flow Rate FiO2 01/04/17 05:16 18 01/04/17 00:00 99.0 122 16 109/79 91 01/03/17 22:59 18 01/03/17 20:00 98.2 117 16 103/81 94 01/03/17 16:00 96.3 104 14 122/56 90 01/03/17 14:07 Nasal Cannula 3.00 01/03/17 12:00 98.6 112 12 112/64 91 01/03/17 11:48 17 01/03/17 11:48 17 (Neelima Muñoz) -: 01/03/17 0621 01/03/17 0621 Microbiology 01/03/17 Urine Culture, Received Pending 01/03/17 Aerobic Blood Culture, Received Pending 01/03/17 Anaerobic Blood Culture, Received Pending 01/03/17 Aerobic Blood Culture, Received Pending 01/03/17 Anaerobic Blood Culture, Received Pending Imaging Last 72 hours Impressions Chest X-Ray 01/02/17 0000 Signed Impressions: Service Date/Time: Monday, January 02, 2017 09:01 - CONCLUSION: Examination quality is less than optimal due to patient body habitus. Given the technique, no acute finding is appreciated. Elliott Fernandez MD Tubes & Lines: Kyle (Neelima Muñoz) Physical Exam General Appearance: No Acute Distress, Obese Appearance Remarks morbidly obese (Neelima Muñoz) Throat Throat Exam: Oral Mucosa [place] & Moist (Neelima Muñoz) Pulmonary Resp Exam: Breath Sounds Equal, No Distress Resp Remarks difficult to auscultate due to body habitus (Neelima Muñoz) Cardiology CV Exam: Regular, Good Perfusion (Neelima Muñoz) Musculoskeletal MS Exam: Unable to Ambulate MS Remarks s/p left AKA right leg deformed (Neelima Muñoz) Integumentary Skin Exam: Warm, Dry Skin Remarks multiple wounds, buttocks and left stump (Neelima Muñoz) Extremeties Extremities Exam: Pedal Pulses Palpable, Trace Edema (Neelima Muñoz) Neurologic Neuro Exam: Awake Neuro Remarks awake, verbal but confused (Neelima Muñoz) Assessment/Plan Discussed Condition With: Patient Assessment Summary: LISA/Acute Renal Failure Problem List: (1) LISA (acute kidney injury) Plan: in a patient with normal renal function at baseline suspected prerenal azotemia due to renal hypoperfusion from sepsis, may have progressed to ATN renal function is stable continue IVF, monitor urine output phosphorus is elevated, should improve as renal function improves monitor blood pressure, maintain MAP >65mmgH, he is on midodrine avoid nephrotoxic substances, should stop Xarelto and minimize narcotic dosages with reduced GFR to prevent toxicity daily renal panel (2) Sepsis Plan: urosepsis gram negative rods on culture drawn 01/02; repeat blood and urine cultures are in progress on meropenem, ID following monitor clinically pressors if needed to maintain adequate MAP > 65mmHg (3) Chronic indwelling Kyle catheter Plan: due to immobility and neurogenic bladder, hematuria noted urology is following, s/p kyle replacement 01/04 monitor urine output (4) UTI (urinary tract infection) Plan: history of same, now with urosepsis continue antibiotic management (5) Paraplegia Plan: needs assistance with ADLs on multiple pain medications for chronic pain (Neelima Muñoz) Plan patient was seen and examined. Agree with above assessment and plan. (Michele Eaton MD) Problem Qualifiers (1) Sepsis: Qualified Code: A41.51 - Sepsis due to Escherichia coli Neelima Muñoz January 04, 2017 09:56 Michele Eaton MD January 05, 2017 16:14
[2017-01-04 10:17] LABS: AUTOMATED NEUTROPHIL # 10.1 TH/MM3 (1.8-7.7); BASOPHIL # 0.1 TH/MM3 (0-0.2); BASOPHIL % 1.1 % (0.0-2.0); EOSINOPHIL # 0.2 TH/MM3 (0-0.4); EOSINOPHIL % 1.6 % (0.0-4.0); HEMATOCRIT 27.3 % (39.0-51.0); HEMO FLAGS DIFF FINAL; LYMPH % 12.4 % (9.0-44.0); LYMPHOCYTE # 1.6 TH/MM3 (1.0-4.8); MEAN CELL VOLUME 74.8 FL (80.0-100.0); MEAN CORPUSCULAR HEMOGLOBIN 23.8 PG (27.0-34.0); MEAN CORPUSCULAR HGB CONC 31.8 % (32.0-36.0); NEUT % 78.9 % (16.0-70.0); PLATELET COUNT 260 TH/MM3 (150-450); RED BLOOD COUNT 3.64 MIL/MM3 (4.50-5.90); RED CELL DISTRIBUTION WIDTH 22.4 % (11.6-17.2); WHITE BLOOD COUNT 12.8 TH/MM3 (4.0-11.0)
[2017-01-04 10:28] LABS: BICARBONATE 24.3 MEQ/L (21.0-32.0); POTASSIUM 4.2 MEQ/L (3.5-5.1)
[2017-01-04 11:12] VITALS: O2SAT 95
[2017-01-04 12:00] VITALS: BP 113/63; PULSE 238; RESP 16; TEMP 100; O2SAT 96
[2017-01-04 20:00] VITALS: BP 107/53; PULSE 112; RESP 18; TEMP 98.9; O2SAT 90
[2017-01-04] MEDS: MUPIROCIN 2% OINT 1 APPLIC/GM SYR EACH NARE SCH (22:17)
[2017-01-04] MEDS: ESCITALOPRAM OXALATE 20 MG TAB PO SCH (22:19)
[2017-01-04] MEDS: TOLTERODINE TARTRATE 4 MG CAP LA PO SCH (22:19)
[2017-01-04] MEDS: RIVAROXABAN 20 MG TAB PO SCH (22:19)
[2017-01-04] MEDS: traZODone HCL 100 MG TAB PO SCH (22:19)
[2017-01-04] MEDS: CLOTRIMAZOLE 1% CREAM 15 GM TOPICAL PRN (22:25)
[2017-01-05] VITALS (9 sets, daily range): BP systolic 100–120; BP diastolic 51–69; PULSE 102–120; RESP 16–20; TEMP 96.6–99; O2SAT 90–99
[2017-01-05 00:46] LABS: BLOOD GAS BASE EXCESS -3.3 mmol/L (-2-2); BLOOD GAS HCO3 22 mmol/L (22-26); BLOOD GAS METHEMOGLOBIN 0.8 % (0-2); BLOOD GAS O2 HGB SATURATION 79 % (90-100); BLOOD GAS OXYGEN CONTENT 13.5 Vol % (12.0-20.0); BLOOD GAS PCO2 43 mmHg (38-42); BLOOD GAS PO2 48 mmHg (61-120); BLOOD GAS TOTAL HGB 12.1 G/DL (12.0-16.0); TEMP CORR TO 98.6
[2017-01-05 00:47] LABS: CRITICAL VALUE YES; DRAW SITE RT RADIAL; FIO2 21 %; NUMBER OF ARTERIAL PUNCTURES 2; OXYGEN DEVICE ROOMAIR; STAT YES; ULNAR PULSE PRESENT
[2017-01-05] MEDS: SODIUM CHLOR 0.9% 1000 ML INJ 1,000 ML IV SCH ×3 (01:08→21:41)
[2017-01-05] MEDS: MEROPENEM INJ 1,000 MG in SODIUM CHLORIDE 0.9% INJ 100 ML IV SCH ×2 (01:10→08:00)
[2017-01-05] MEDS: MORPHINE SULFATE 30 MG CONTROLLED RELEASE TAB PO SCH ×3 (02:00→18:00)
[2017-01-05] MEDS: MORPHINE SULFATE 100 MG CONTROLLED RELEASE TAB PO SCH ×3 (02:00→18:00)
[2017-01-05] MEDS: INSULIN ASPART SUPPLEMENTAL SCALE SQ SCH ×4 (06:05→21:00)
[2017-01-05] MEDS: OXYBUTYNIN CHLORIDE 5 MG TAB PO SCH ×3 (06:06→21:47)
[2017-01-05] MEDS: LEVOTHYROXINE SODIUM 50 MCG TAB PO SCH (06:06)
[2017-01-05] MEDS: MIDODRINE 5 MG TAB PO SCH ×3 (06:06→21:47)
[2017-01-05] MEDS: INSULIN DETEMIR 100 UNITS/ML VIAL SQ SCH ×2 (07:00→21:00)
[2017-01-05] MEDS: INSULIN ASPART 1,000 UNITS/10 ML VIAL SQ SCH ×3 (08:00→17:00)
[2017-01-05] MEDS: SODIUM CHLORIDE 0.9% FLUSH 10 ML FLUSH IV FLUSH SCH ×2 (08:56→21:00)
[2017-01-05] MEDS: NYSTATIN 100,000 U/GM PWD 15 GM BTL TOPICAL SCH ×2 (09:00→21:00)
[2017-01-05] MEDS: DOCUSATE SODIUM 50 MG/SENNA 8.6 MG TAB PO SCH ×2 (09:00→21:41)
[2017-01-05] MEDS: FAMOTIDINE 20 MG TAB PO SCH (09:04)
[2017-01-05] MEDS: ASCORBIC ACID 500 MG TAB PO SCH ×2 (09:04→21:41)
[2017-01-05] MEDS: buPROPion HCL 150 MG SUSTAINED RELEASE TAB PO SCH (09:05)
[2017-01-05] MEDS: ATORVASTATIN 40 MG TAB PO SCH (09:05)
[2017-01-05] MEDS: GABAPENTIN 300 MG CAP PO SCH ×3 (09:05→18:11)
[2017-01-05] MEDS: LACTOBACILLUS ACIDOPHILUS TAB PO SCH ×3 (09:05→18:11)
[2017-01-05] MEDS: NYSTAT/DIPHENHY/LIDO MOUTHWASH (Adult) 120ML SWISH-SWAL SCH ×4 (09:06→21:42)
[2017-01-05] MEDS: NAPHAZOLINE HCL 0.012% OPHT SOLN 15 ML BOTTLE RIGHT EYE PRN (09:10)
--- NOTE | 2017-01-05 10:16 | HHI.NPPN ---
Subjective Complaints: Confused, Obesity Renal Problems: Hematuria Renal Failure: Acute Interval History He knowingly pulled out IV this morning. Then refused AM lab draw. (Neelima Muñoz) Review of Systems General Constitutional: Fatigue (Neelima Muñoz) Objective Data Data 01/04/17 01/05/17 19:00 07:00 Intake Total 700 ml 1995 ml Output Total 2800 ml Balance 700 ml -805 ml Intake Oral 480 ml IV Total 700 ml 1515 ml Output Urine Total 2800 ml # Bowel Movements 0 Vital Signs Date Time Temp Pulse Resp B/P Pulse Ox O2 Delivery O2 Flow Rate FiO2 01/05/17 09:46 93 Nasal Cannula 4.00 01/05/17 08:00 97.6 104 16 111/55 90 01/05/17 04:00 96.6 102 20 119/69 92 01/05/17 01:20 99 50 01/05/17 00:00 98.4 110 20 100/51 92 01/04/17 20:00 98.9 112 18 107/53 90 01/04/17 20:00 Nasal Cannula 4.00 01/04/17 18:27 Nasal Cannula 4.00 01/04/17 15:28 17 01/04/17 12:00 100.0 238 16 113/63 96 01/04/17 11:12 95 Nasal Cannula 4.00 01/04/17 11:11 18 01/04/17 11:11 18 (Neelima Muñoz) -: 01/04/17 1004 01/04/17 1004 Tubes & Lines: Kyle (Neelima Muñoz) Physical Exam General Appearance: No Acute Distress, Obese Appearance Remarks morbidly obese (Neelima Muñoz) Throat Throat Exam: Oral Mucosa [place] & Moist (Neelima Muñoz) Pulmonary Resp Exam: Breath Sounds Equal, No Distress Resp Remarks difficult to auscultate due to body habitus (Neelima Muñoz) Cardiology CV Exam: Regular, Good Perfusion (Neelima Muñoz) Musculoskeletal MS Exam: Unable to Ambulate MS Remarks s/p left AKA right leg deformed (Neelima Muñoz) Integumentary Skin Exam: Warm, Dry Skin Remarks multiple wounds, buttocks and left stump (Neelima Muñoz) Extremeties Extremities Exam: Pedal Pulses Palpable, Trace Edema (Neelima Muñoz) Neurologic Neuro Exam: Awake Neuro Remarks awake, verbal but confused (Neelima Muñoz) Assessment/Plan Discussed Condition With: Patient Assessment Summary: LISA/Acute Renal Failure Problem List: (1) LISA (acute kidney injury) Plan: in a patient with normal renal function at baseline suspected prerenal azotemia due to renal hypoperfusion from sepsis, may have progressed to ATN renal function has been stable, no labs available at thist iem continue IVF when IV has been replaced check phosphorus today monitor blood pressure, maintain MAP >65mmgH, he is on midodrine avoid nephrotoxic substances, should stop Xarelto and minimize narcotic dosages with reduced GFR to prevent toxicity daily renal panel can place midline or PICC if needed (2) Sepsis Plan: urosepsis gram negative rods on culture drawn 01/02; repeat blood and urine cultures are in progress on meropenem, ID following monitor clinically pressors if needed to maintain adequate MAP > 65mmHg (3) Chronic indwelling Kyle catheter Plan: due to immobility and neurogenic bladder, hematuria improved urology is following, s/p kyle replacement 01/04 monitor urine output (4) UTI (urinary tract infection) Plan: history of same, now with urosepsis continue antibiotic management (5) Paraplegia Plan: needs assistance with ADLs on multiple pain medications for chronic pain (Neelima Mñuoz) Plan patient was seen and examined. His renal function has improved. Avoid nephrotoxic agents. Continue supportive care. (Michele Eaton MD) Problem Qualifiers (1) Sepsis: Qualified Code: A41.51 - Sepsis due to Escherichia coli Neelima Muñoz January 05, 2017 10:16 Michele Eaton MD January 05, 2017 16:38
[2017-01-05] MEDS: CLOTRIMAZOLE 1% CREAM 15 GM TOPICAL SCH ×2 (10:38→21:00)
[2017-01-05] MEDS: POVIDONE IODINE 10% OINT 30 GM TUBE TOPICAL SCH (10:38)
[2017-01-05] MEDS: MUPIROCIN 2% OINT 1 APPLIC/GM SYR EACH NARE SCH ×2 (10:39→21:41)
[2017-01-05] MEDS: COLLAGENASE OINT 30 GM TUBE TOPICAL SCH (10:39)
--- NOTE | 2017-01-05 13:04 | HHI.PR ---
Subjective Remarks Patient reports is feeling better today. Still have some occasional chills. Otherwise no increased in shortness of breath. Objective Vitals Vital Signs Date Time Temp Pulse Resp B/P Pulse Ox O2 Delivery O2 Flow Rate FiO2 01/05/17 12:31 Bi-Pap 01/05/17 12:00 98.7 112 16 120/60 91 01/05/17 09:46 93 Nasal Cannula 4.00 01/05/17 08:00 97.6 104 16 111/55 90 01/05/17 04:00 96.6 102 20 119/69 92 01/05/17 01:20 99 50 01/05/17 00:00 98.4 110 20 100/51 92 01/04/17 20:00 98.9 112 18 107/53 90 01/04/17 20:00 Nasal Cannula 4.00 01/04/17 18:27 Nasal Cannula 4.00 01/04/17 15:28 17 I/O 01/04/17 01/04/17 01/04/17 01/05/17 01/05/17 01/05/17 07:00 15:00 23:00 07:00 15:00 23:00 Intake Total 240 ml 700 ml 1052 ml 943 ml Output Total 1650 ml 1150 ml Balance 240 ml 700 ml -598 ml -207 ml Intake Oral 240 ml 240 ml 240 ml IV Total 700 ml 812 ml 703 ml Output Urine Total 1650 ml 1150 ml # Voids 2 # Bowel Movements 0 0 Result Diagram: 01/04/17 1004 01/04/17 1004 Imaging Last Impressions Chest X-Ray 01/02/17 0000 Signed Impressions: Service Date/Time: Monday, January 02, 2017 09:01 - CONCLUSION: Examination quality is less than optimal due to patient body habitus. Given the technique, no acute finding is appreciated. Elliott Fernandez MD Objective Remarks GENERAL: Morbidly obese male in no acute distress CARDIOVASCULAR: Regular rate and rhythm. RESPIRATORY: No accessory muscle use. Clear to auscultation. Breath sounds equal bilaterally. GASTROINTESTINAL: Abdomen soft, obese, non-tender, nondistended. + BSx4Q. : Kyle in place. MUSCULOSKELETAL: S/P left AKA NEUROLOGICAL: Awake and alert.Normal speech. PSYCHIATRIC: Appropriate mood and affect. Procedures 4/14- S/P flexible cystoscopy with replacement of kyle catheter Date of Insertion: Nov 25, 2016 A/P Problem List: (1) UTI (urinary tract infection) ICD Code: N39.0 Status: Resolved (2) Chronic pain ICD Code: G89.29 Status: Chronic (3) Type 2 diabetes mellitus ICD Code: E11.9 Status: Chronic (4) Morbidly obese ICD Code: E66.01 Status: Chronic (5) Depression ICD Code: F32.9 Status: Chronic (6) Pressure ulcer ICD Code: L89.90 Status: Chronic (7) Sleep apnea ICD Code: G47.30 Status: Chronic (8) Hypothyroidism ICD Code: E03.9 Status: Chronic Assessment and Plan 25 y/o male with a history of paraplegia, neurogenic bladder, HTN, chronic reoccurring DVT, chronic pain, LAKA, sleep apnea, CHF. Prolonged hospital stay. Most recently patient was found to be in severe sepsis. Severe Sepsis (01/02/17 noted fever 102.1, leukocytosis 28.6k, BP 74/35, LISA source UTI, bacreremia E coli )- recent h/o ESBL, MDRO. Patient also had diarrhea, C diff negative Leukocytosis WBC 28.6, temp 102 on 01/02. trending down Renal function worsen. Improving today. Note: Patient refused on multiple occasions to change kyle ( attempts by Dr Zhang and Dr Baez urology and was fired by urology as patient noncompliant). Patient agrees to kyle change, spoke with Dr Zhang urology, appreciate recommendations. Kyle changes 01/04/17. Blood cultures positive E coli Repeat urine culture ordered for post Kyle catheter insertion 01/[address] Zhang, appreciate recommendations. Ertapenem changed to meropenem per ID . ID consulted, appreciate recommendations. Continue IVF NS 100 ml/hr. Monitor BP closely. Discussed with ID, okay to order PICC line. Also okay with nephrology. Acute kidney injury: suspect secondary to urinary tract infection, severe sepsis with end organ damage. Kyle changed 01/04/17. (note patient refused on multiple occasions to kyle changed). Neurogenic bladder Blood pressure stable. Continue Midodrine. Continue Oxybutynin 5mg bid. Kyle catheter place by Dr. Meraz on 11/25. Urology reconsulted on 01/01 for replacement of Kyle catheter. Appreciate nephrology following. Nonproductive cough Chest x-ray ordered and reviewed, examination quality is less than optimal due to patient body habitus. No acute finding appreciated. Diabetes Mellitus insulin dependent, uncontrolled A1c is 9.7 Monitor Accu-Cheks, continue sliding scale insulin. Continue Levemir 30 units subq in am and 32 units subq qhs. Start prandial insulin coverage, Novolog 3 units TID before each meal. Continue to monitor and adjust the regimen as needed. Encouraged compliance with ordered ADA diet. Chronic pain. Home medications baclofen, morphine, oxycodone. Continue Oramorph. Sleep apnea Insomnia - Continue CPAP at night - Continue home medications Ambien PRN & Trazadone 200 qHS. BIPAP at night. Morbid obesity: BMI 97.9. Outpatient general surgery referral needed for possible surgical interventions. Chronic pressure ulcers: Wound care team following. Patient turning himself. Anxiety and depression: no homicidal or suicidal ideations Was evaluated by psych in the ER, Felipe acted lifted, did not meet inpatient psychiatric and admission criteria. Patient has long history of being on psychiatric medication, currently on Lexapro. Previously was on [place] and did not do well with mood on this. Psychiatry follow-up appreciated. Hyperlipidemia: Continue Lipitor. Hypothyroidism: Continue levothyroxine. Substance use: tox screen on admission significant for opiates, benzos, cannabinoids. Constipation: PRN laxatives. DVT prophylaxis: On Xarelto DNR status Palliative care following. Problem Qualifiers (1) Morbidly obese: Qualified Code: E66.01 - Morbid obesity, unspecified obesity type (2) Pressure ulcer: Aisha eBrmudez MD January 05, 2017 13:04
[2017-01-05 13:33] LABS: AUTOMATED NEUTROPHIL # 8.8 TH/MM3 (1.8-7.7); BASOPHIL # 0.1 TH/MM3 (0-0.2); EOSINOPHIL # 0.2 TH/MM3 (0-0.4); EOSINOPHIL % 1.5 % (0.0-4.0); HEMATOCRIT 31.2 % (39.0-51.0); LYMPH % 11.3 % (9.0-44.0); LYMPHOCYTE # 1.2 TH/MM3 (1.0-4.8); MEAN CELL VOLUME 75.1 FL (80.0-100.0); MEAN CORPUSCULAR HEMOGLOBIN 23.3 PG (27.0-34.0); MEAN CORPUSCULAR HGB CONC 31.1 % (32.0-36.0); MONO % 5.8 % (0.0-8.0); NEUT % 80.4 % (16.0-70.0); PLATELET COUNT 279 TH/MM3 (150-450); RED BLOOD COUNT 4.16 MIL/MM3 (4.50-5.90); RED CELL DISTRIBUTION WIDTH 22.4 % (11.6-17.2)
[2017-01-05 13:35] LABS: HEMO FLAGS AUTO DIFF
[2017-01-05 13:39] LABS: MAGNESIUM 2.3 MG/DL (1.5-2.5); POTASSIUM 4.2 MEQ/L (3.5-5.1)
--- NOTE | 2017-01-05 13:46 | HHI.IDPN ---
Subjective Subjective Remarks better afebrile WBC down Creatinine improved Less confused Antibiotics meropenem Past Medical History paraplegia Allergies: Coded Allergies: Adhesives (Verified Allergy, Severe, 11/10/16) Azactam (Verified Allergy, Mild, rash, 11/10/16) Mild localized rash. Confirm with patient on January 11, 2016. Clindamycin (Verified Allergy, Mild, rash, 11/10/16) Mild localized rash. Confirm with patient on January 11, 2016. Penicillin (Verified Allergy, Mild, rash, 11/10/16) Mild localized rash. Confirm with patient on January 11, 2016. *MDRO Multi-Drug Resistant Organism (Verified Adverse Reaction, Unknown, ) E. coli ESBL positive (urine) - 07/2012, 11/29/2016 MRSA (foot- 10/27/15),(blood-12/2015),(ankle-04/16/16); MRSA PCR (nares) positive - 01/10/16; ESBL+Klebsiella Pneumoniae & VRE (urine-05/23/16) MDR Pseudomonas aeruginosa (urine) - 05/23/16 Uncoded Allergies: CEFEPIME (Allergy, Mild, Rash, 01/11/16) Mild localized rash. Confirm with patient on January 11, 2016. Objective . Vital Signs Date Time Temp Pulse Resp B/P Pulse Ox O2 Delivery O2 Flow Rate FiO2 01/05/17 12:31 Bi-Pap 01/05/17 12:00 98.7 112 16 120/60 91 01/05/17 09:46 93 Nasal Cannula 4.00 01/05/17 08:00 97.6 104 16 111/55 90 01/05/17 04:00 96.6 102 20 119/69 92 01/05/17 01:20 99 50 01/05/17 00:00 98.4 110 20 100/51 92 01/04/17 20:00 98.9 112 18 107/53 90 01/04/17 20:00 Nasal Cannula 4.00 01/04/17 18:27 Nasal Cannula 4.00 01/04/17 15:28 17 01/04/17 01/04/17 01/05/17 15:00 23:00 07:00 Intake Total 700 ml 1052 ml 943 ml Output Total 1650 ml 1150 ml Balance 700 ml -598 ml -207 ml Intake Oral 240 ml 240 ml IV Total 700 ml 812 ml 703 ml Output Urine Total 1650 ml 1150 ml # Bowel Movements 0 0 . Laboratory Tests Test 01/04/17 01/05/17 10:04 12:53 White Blood Count 12.8 TH/MM3 11.0 TH/MM3 Red Blood Count 3.64 MIL/MM3 4.16 MIL/MM3 Hemoglobin 8.7 GM/DL 9.7 GM/DL Hematocrit 27.3 % 31.2 % Mean Corpuscular Volume 74.8 FL 75.1 FL Mean Corpuscular Hemoglobin 23.8 PG 23.3 PG Mean Corpuscular Hemoglobin 31.8 % 31.1 % Concent Red Cell Distribution Width 22.4 % 22.4 % Platelet Count 260 TH/MM3 279 TH/MM3 Mean Platelet Volume 8.5 FL 8.3 FL Neutrophils (%) (Auto) 78.9 % 80.4 % Lymphocytes (%) (Auto) 12.4 % 11.3 % Monocytes (%) (Auto) 6.0 % 5.8 % Eosinophils (%) (Auto) 1.6 % 1.5 % Basophils (%) (Auto) 1.1 % 1.0 % Neutrophils # (Auto) 10.1 TH/MM3 8.8 TH/MM3 Lymphocytes # (Auto) 1.6 TH/MM3 1.2 TH/MM3 Monocytes # (Auto) 0.8 TH/MM3 0.6 TH/MM3 Eosinophils # (Auto) 0.2 TH/MM3 0.2 TH/MM3 Basophils # (Auto) 0.1 TH/MM3 0.1 TH/MM3 CBC Comment DIFF FINAL AUTO DIFF Differential Comment Hematology Comments Laboratory Tests Test 01/04/17 01/05/17 10:04 12:53 Sodium Level 142 MEQ/L 140 MEQ/L Potassium Level 4.2 MEQ/L 4.2 MEQ/L Chloride Level 109 MEQ/L 107 MEQ/L Carbon Dioxide Level 24.3 MEQ/L 24.0 MEQ/L Anion Gap 9 MEQ/L 9 MEQ/L Blood Urea Nitrogen 38 MG/DL 31 MG/DL Creatinine 1.72 MG/DL 1.42 MG/DL Estimat Glomerular Filtration 48 ML/MIN 59 ML/MIN Rate Random Glucose 127 MG/DL 119 MG/DL Calcium Level 8.2 MG/DL 8.6 MG/DL Phosphorus Level 3.5 MG/DL Magnesium Level 2.3 MG/DL Microbiology Date/Time Procedure Status Source Growth 01/03/17 04:30 Gram Stain - Final Complete Sputum Expectorated Sputum 01/03/17 04:30 Sputum Culture - Final Complete S. Aureus Mrsa 01/03/17 15:00 Urine Culture - Final Complete Urine Catheterized Urine 01/03/17 16:30 Aerobic Blood Culture - Preliminary Resulted Blood Peripheral NO GROWTH IN 2 DAYS 01/03/17 16:30 Anaerobic Blood Culture - Preliminary Resulted Blood Peripheral NO GROWTH IN 2 DAYS 01/03/17 16:30 Aerobic Blood Culture - Preliminary Resulted Blood Peripheral NO GROWTH IN 2 DAYS 01/03/17 16:30 Anaerobic Blood Culture - Preliminary Resulted Blood Peripheral NO GROWTH IN 2 DAYS Imaging Last Impressions Chest X-Ray 01/02/17 0000 Signed Impressions: Service Date/Time: Monday, January 02, 2017 09:01 - CONCLUSION: Examination quality is less than optimal due to patient body habitus. Given the technique, no acute finding is appreciated. Elliott Fernandez MD Physical Exam CONSTITUTIONAL/GENERAL: This is a morbudly obese patient, in no apparent distress. He is very confused TUBES/LINES/DRAINS: SKIN: No jaundice, rashes, or lesions. HEAD: Atraumatic. Normocephalic. EYES: R[place] EOMI ENT: Hearing grossly normal. moist oral mucosae CARDIOVASCULAR: distant heart sounds, no murmurs RESPIRATORY/CHEST: unlabored respirations. clear to auscultation GASTROINTESTINAL: markedly obese, not tender Incontinent of liquid light brown stool GENITOURINARY:Kyle catheter in place with very cloudy and bloody urine MUSCULOSKELETAL: Sp L AKA, healed NEUROLOGICAL Less lethargic, arousable, speech is clear but incoherent Moves b/l upper extremities; paraplegic PSYCHIATRIC: calm, cooperative Assessment & Plan Remarks Parapleguia 2/2 traumatic SCI Morbid obesity New severe sepsis, E.coli from comlicated UTI 2/2 indwelling kyle 2/2 neurogenic bladder 2/2 paraplegia Clinically sepsic (fever, tachycardia, hypoxia) - ARF 2/2 sepsis - improved - encephalopathy 2/2 sepsis - improved - stable - kyle was changed H/o MDROs (ESBL, VRE) including recent UTI 2/2 ESBL + Kleb pneiumo, Proteus H/o adverse reactions to multiple abx: including azacta, cefepime, PCN, but tolerates carbapenem wo issues in the past including during this admission L b uttock chronic decub, not actively infected Diarrhea, hospi acquired, h/o recent abx use, C.diff negative Pt is DNR MRSA in sputum, CXR negative - pieter just colonisation - chng meropenem to ertapenem - monitor clinically - OK to place PICC dw Radha London RN, MD January 05, 2017 13:46
[2017-01-05] MEDS ORDERED: MISCELLANEOUS PHARMACY INFORMATION XX PRN (14:00)
[2017-01-05] MEDS ORDERED: ASP: Documented ESBL, MDR A baumannii or P. aeruginosa PRN (14:00)
[2017-01-05 14:14] LABS: SCAN/DIFF AUTO DIFF CONFIRMED
[2017-01-05] MEDS: ERTAPENEM INJ 1,000 MG in SODIUM CHLORIDE 0.9% INJ 100 ML IV SCH (18:22)
[2017-01-05] MEDS ORDERED: SODIUM CHLORIDE 0.9% FLUSH 10 ML FLUSH IV FLUSH PRN (18:30)
--- NOTE | 2017-01-05 18:39 | RADRPT ---
EXAM DATE/TIME: 01/05/2017 17:51 [facility] COMPARISON: No previous studies available for comparison. INDICATIONS : PICC line placement. MEDICAL HISTORY : None. SURGICAL HISTORY : None. ENCOUNTER: Initial ACUITY: 1 day PAIN SCORE: 0/10 LOCATION: Bilateral chest FINDINGS: There is a left arm PICC with tip in the superior vena cava. Somewhat globular configuration of the heart, especially on the right. A pericardial effusion would b e in the differential. There is mild consolidation of both bases. CONCLUSION: Left arm PICC has his tip in the superior vena cava. Mild cardiomegaly with a globular configuration. Please see above. Elliott Livingston MD on January 05, 2017 at 18:36 Board Certified Radiologist. This report was verified electronically.
[2017-01-05] MEDS: TOLTERODINE TARTRATE 4 MG CAP LA PO SCH (21:41)
[2017-01-05] MEDS: ESCITALOPRAM OXALATE 20 MG TAB PO SCH (21:41)
[2017-01-05] MEDS: RIVAROXABAN 20 MG TAB PO SCH (21:42)
[2017-01-06] VITALS (8 sets, daily range): BP systolic 100–132; BP diastolic 49–67; PULSE 70–101; RESP 16–20; TEMP 97.1–98.7; O2SAT 90–100
[2017-01-06] MEDS: traZODone HCL 100 MG TAB PO SCH ×2 (00:40→21:27)
[2017-01-06] MEDS: MORPHINE SULFATE 100 MG CONTROLLED RELEASE TAB PO SCH ×3 (02:00→16:47)
[2017-01-06] MEDS: MORPHINE SULFATE 30 MG CONTROLLED RELEASE TAB PO SCH ×3 (02:00→16:47)
[2017-01-06 04:16] LABS: MEAN CELL VOLUME 74.6 FL (80.0-100.0); MEAN CORPUSCULAR HEMOGLOBIN 23.4 PG (27.0-34.0); MEAN CORPUSCULAR HGB CONC 31.3 % (32.0-36.0); PLATELET COUNT 275 TH/MM3 (150-450); RED BLOOD COUNT 3.35 MIL/MM3 (4.50-5.90); REVIEW FLAG FINAL; WHITE BLOOD COUNT 7.1 TH/MM3 (4.0-11.0)
[2017-01-06 04:28] LABS: BICARBONATE 27.3 MEQ/L (21.0-32.0); POTASSIUM 4.1 MEQ/L (3.5-5.1)
[2017-01-06] MEDS: LEVOTHYROXINE SODIUM 50 MCG TAB PO SCH (05:51)
[2017-01-06] MEDS: MIDODRINE 5 MG TAB PO SCH ×3 (05:51→21:26)
[2017-01-06] MEDS: OXYBUTYNIN CHLORIDE 5 MG TAB PO SCH ×3 (05:51→21:27)
[2017-01-06] MEDS: INSULIN DETEMIR 100 UNITS/ML VIAL SQ SCH ×2 (07:00→21:00)
[2017-01-06] MEDS: INSULIN ASPART 1,000 UNITS/10 ML VIAL SQ SCH ×3 (08:00→17:00)
[2017-01-06] MEDS: DOCUSATE SODIUM 50 MG/SENNA 8.6 MG TAB PO SCH ×2 (08:57→21:26)
[2017-01-06] MEDS: ATORVASTATIN 40 MG TAB PO SCH (08:57)
[2017-01-06] MEDS: LACTOBACILLUS ACIDOPHILUS TAB PO SCH ×3 (08:57→16:46)
[2017-01-06] MEDS: NYSTAT/DIPHENHY/LIDO MOUTHWASH (Adult) 120ML SWISH-SWAL SCH ×4 (08:57→21:28)
[2017-01-06] MEDS: GABAPENTIN 300 MG CAP PO SCH ×3 (08:57→16:47)
[2017-01-06] MEDS: buPROPion HCL 150 MG SUSTAINED RELEASE TAB PO SCH (08:57)
[2017-01-06] MEDS: ASCORBIC ACID 500 MG TAB PO SCH ×2 (08:57→21:27)
[2017-01-06] MEDS: FAMOTIDINE 20 MG TAB PO SCH (08:57)
[2017-01-06] MEDS: NYSTATIN 100,000 U/GM PWD 15 GM BTL TOPICAL SCH ×2 (09:00→21:38)
[2017-01-06] MEDS: SODIUM CHLORIDE 0.9% FLUSH 10 ML FLUSH IV FLUSH SCH ×3 (09:00→21:28)
[2017-01-06] MEDS: MUPIROCIN 2% OINT 1 APPLIC/GM SYR EACH NARE SCH ×2 (09:24→21:43)
[2017-01-06] MEDS: CLOTRIMAZOLE 1% CREAM 15 GM TOPICAL SCH ×2 (09:25→21:00)
[2017-01-06] MEDS: COLLAGENASE OINT 30 GM TUBE TOPICAL SCH (09:25)
[2017-01-06] MEDS: POVIDONE IODINE 10% OINT 30 GM TUBE TOPICAL SCH (09:25)
--- NOTE | 2017-01-06 10:59 | HHI.PR ---
Subjective Remarks Follow up for paraplegia, chronic pain, neurogenic bladder and severe sepsis. Patient seen and examined. Lying in bed comfortably, in no apparent distress. On RA, breathing much better, denies any shortness of breath. Does have a nonproductive cough and continued chills. Denies any recent fever, chest pain, palpitations. Positive BM. Afebrile. Objective Vitals Vital Signs Date Time Temp Pulse Resp B/P Pulse Ox O2 Delivery O2 Flow Rate FiO2 01/06/17 08:00 97.3 101 16 132/67 90 01/06/17 04:56 Full Face Mask 50.0 01/06/17 04:00 98.7 70 108/55 100 01/06/17 00:00 97.1 80 20 100/49 97 01/05/17 21:00 99 50 01/05/17 20:00 99.0 105 20 112/53 95 01/05/17 20:00 Bi-Pap 01/05/17 16:00 97.8 120 16 115/64 91 01/05/17 12:31 Bi-Pap 01/05/17 12:00 98.7 112 16 120/60 91 I/O 01/05/17 01/05/17 01/05/17 01/06/17 01/06/17 01/06/17 07:00 15:00 23:00 07:00 15:00 23:00 Intake Total 943 ml 1124 ml 758 ml 1215 ml Output Total 1150 ml 1400 ml 5950 ml 2500 ml Balance -207 ml -276 ml -5192 ml -1285 ml Intake Oral 240 ml 440 ml 640 ml 420 ml IV Total 703 ml 684 ml 118 ml 795 ml Output Urine Total 1150 ml 1400 ml 5950 ml 2500 ml # Bowel Movements 0 1 0 0 Result Diagram: 01/06/17 0400 01/06/17 0400 Imaging Last Impressions Chest X-Ray 01/05/17 0000 Signed Impressions: Service Date/Time: December 17:51 - CONCLUSION: Left arm PICC has his tip in the superior vena cava. Mild cardiomegaly with a globular configuration. Please see above. Elliott Livingston MD Objective Remarks GENERAL: Morbidly obese male, well-developed patient lying awake in bed on room air. SKIN: Warm and dry. No rash. HEENT: Normocephalic. Atraumatic.Pupils equal and round. No scleral icterus. No injection or drainage. No nasal bleeding or discharge. Mucous membranes pink and moist. Neck supple. CARDIOVASCULAR: Regular rate and rhythm. S1, S2 noted. No murmur appreciated. RESPIRATORY: No accessory muscle use. Distant breath sounds noted, clear to auscultation. Breath sounds equal bilaterally. GASTROINTESTINAL: Abdomen soft, round, obese, non-tender, nondistended. Normoactive bowel sounds x4. MUSCULOSKELETAL: No obvious deformities. Extremities without clubbing, cyanosis , or edema. NEUROLOGICAL: Awake and alert. No obvious cranial nerve deficits. Motor grossly within normal limits. Normal speech. PSYCHIATRIC: Appropriate mood and affect; insight and judgment normal. Procedures 11/25- S/P flexible cystoscopy with replacement of kyle catheter Urinary Catheter: Yes Assessment to: Continue Kyle insert reason: Prolonged Immobilization Date of Insertion: January 04, 2017 A/P Problem List: (1) UTI (urinary tract infection) ICD Code: N39.0 Status: Resolved (2) Chronic pain ICD Code: G89.29 Status: Chronic (3) Type 2 diabetes mellitus ICD Code: E11.9 Status: Chronic (4) Morbidly obese ICD Code: E66.01 Status: Chronic (5) Depression ICD Code: F32.9 Status: Chronic (6) Pressure ulcer ICD Code: L89.90 Status: Chronic (7) Sleep apnea ICD Code: G47.30 Status: Chronic (8) Hypothyroidism ICD Code: E03.9 Status: Chronic Assessment and Plan 25 y/o male with a history of paraplegia, neurogenic bladder, HTN, chronic reoccurring DVT, chronic pain, LAKA, sleep apnea, CHF. Prolonged hospital stay. Most recently patient was found to be in severe sepsis. Severe Sepsis (01/02/17 noted fever 102.1, leukocytosis 28.6k, BP 74/35, LISA source UTI, bacreremia E coli ) - recent h/o ESBL, MDRO. Patient also had diarrhea, C diff negative Leukocytosis WBC 28.6, temp 102 on 01/02. trending down, current 7.1 Renal function improved, creatinine 1.14. Note: Patient refused on multiple occasions to change kyle ( attempts by Dr Zhang and Dr Baez urology and was fired by urology as patient noncompliant). Kyle changed 01/04/17. Blood cultures positive E coli. Repeat urine culture ordered for post Kyle catheter insertion 01/04. Mixed monique found, probable contaminants. Ertapenem changed to meropenem per ID, now changed from meropenem back to ertapenem 1 g IV Q24hr. ID following, appreciate recommendations. Continue IVF NS 100 ml/hr. Monitor BP closely. Discussed with ID, okay to order PICC line. Also okay with nephrology. Acute kidney injury: suspect secondary to urinary tract infection, severe sepsis with end organ damage. Kyle changed 01/04/17. (note patient refused on multiple occasions to kyle changed). Neurogenic bladder Blood pressure stable. Continue Midodrine. Continue Oxybutynin 5mg bid. FC changed 01/04. Appreciate nephrology following. Nonproductive cough Chest x-ray ordered and reviewed, examination quality is less than optimal due to patient body habitus. No acute finding appreciated. Diabetes Mellitus insulin dependent, uncontrolled A1c is 9.7 Monitor Accu-Cheks, continue sliding scale insulin. Continue Levemir 30 units subq in am and 32 units subq qhs. Continue prandial insulin coverage, Novolog 3 units TID before each meal. Continue to monitor and adjust the regimen as needed. Encouraged compliance with ordered ADA diet. Chronic pain. Home medications baclofen, morphine, oxycodone. Continue Oramorph. Sleep apnea Insomnia - Continue CPAP at night - Continue home medications Ambien PRN & Trazadone 200 qHS. BIPAP at night. Morbid obesity: BMI 97.9. Outpatient general surgery referral needed for possible surgical interventions. Chronic pressure ulcers: Wound care team following. Patient turning himself. Anxiety and depression: no homicidal or suicidal ideations Was evaluated by psych in the ER, Felipe acted lifted, did not meet inpatient psychiatric and admission criteria. Patient has long history of being on psychiatric medication, currently on Lexapro. Previously was on [place] and did not do well with mood on this. Psychiatry follow-up appreciated. Hyperlipidemia: Continue Lipitor. Hypothyroidism: Continue levothyroxine. Substance use: tox screen on admission significant for opiates, benzos, cannabinoids. Constipation: PRN laxatives. DVT prophylaxis: On Xarelto DNR status Palliative care following. DW patient, RN and [place] Discharge Planning Last CM note 5/24 placed a call to [facility] [phone] and i spoke to suzanna and per suzanna, she has no halfway beds and has stated that i can contact [facility]. placed a call to micah of [facility] and [facility] [phone] and i had to leave a message with a request for a call back. i will continue to search for a snf for this pt Problem Qualifiers (1) Morbidly obese: Qualified Code: E66.01 - Morbid obesity, unspecified obesity type (2) Pressure ulcer: Micah Canales January 06, 2017 10:59
[2017-01-06] MEDS: INSULIN ASPART SUPPLEMENTAL SCALE SQ SCH ×3 (11:00→21:00)
[2017-01-06] MEDS: ERTAPENEM INJ 1,000 MG in SODIUM CHLORIDE 0.9% INJ 100 ML IV SCH (13:51)
--- NOTE | 2017-01-06 13:57 | HHI.NPPN ---
Subjective Complaints: Confused, Obesity Renal Problems: Hematuria Renal Failure: Acute Interval History Renal function is better. No new medical issues. (Neelima Muñoz) Review of Systems General Constitutional: Fatigue (Neelima Muñoz) Objective Data Data 01/05/17 01/06/17 19:00 07:00 Intake Total 1124 ml 1973 ml Output Total 1400 ml 8450 ml Balance -276 ml -6477 ml Intake Oral 440 ml 1060 ml IV Total 684 ml 913 ml Output Urine Total 1400 ml 8450 ml # Bowel Movements 1 0 Vital Signs Date Time Temp Pulse Resp B/P Pulse Ox O2 Delivery O2 Flow Rate FiO2 01/06/17 12:00 98.0 92 16 123/67 94 01/06/17 09:15 Nasal Cannula 2.00 01/06/17 08:00 97.3 101 16 132/67 90 01/06/17 04:56 Full Face Mask 50.0 01/06/17 04:00 98.7 70 108/55 100 01/06/17 00:00 97.1 80 20 100/49 97 01/05/17 21:00 99 50 01/05/17 20:00 99.0 105 20 112/53 95 01/05/17 20:00 Bi-Pap 01/05/17 16:00 97.8 120 16 115/64 91 (Neelima Muñoz) -: 01/06/17 0400 01/06/17 0400 Imaging Last Impressions Chest X-Ray 01/05/17 0000 Signed Impressions: Service Date/Time: December 17:51 - CONCLUSION: Left arm PICC has his tip in the superior vena cava. Mild cardiomegaly with a globular configuration. Please see above. Elliott Livingston MD Tubes & Lines: Kyle (Neelima Muñoz) Physical Exam General Appearance: No Acute Distress, Obese Appearance Remarks morbidly obese (Neelima Muñoz) Throat Throat Exam: Oral Mucosa [place] & Moist (Neelima Muñoz) Pulmonary Resp Exam: Breath Sounds Equal, No Distress Resp Remarks difficult to auscultate due to body habitus (Neelima Muñoz) Cardiology CV Exam: Regular, Good Perfusion (Neelima Muñoz) Musculoskeletal MS Exam: Unable to Ambulate MS Remarks s/p left AKA right leg deformed (Neelima Muñoz) Integumentary Skin Exam: Warm, Dry Skin Remarks multiple wounds, buttocks and left stump (Neelima Muñoz) Extremeties Extremities Exam: Pedal Pulses Palpable, Trace Edema (Neelima Muñoz) Neurologic Neuro Exam: Awake Neuro Remarks awake, verbal but confused (Neelima Muñoz) Assessment/Plan Discussed Condition With: Patient Assessment Summary: LISA/Acute Renal Failure Problem List: (1) LISA (acute kidney injury) Plan: in a patient with normal renal function at baseline suspected prerenal azotemia due to renal hypoperfusion from sepsis, may have progressed to ATN renal function has improved he has excellent urine output if oral intake is adequate, IVF can be stopped no renal concerns at this time continue to avoid nephrotoxic substances, we will sign off at this time (2) Sepsis Plan: urosepsis gram negative rods on culture drawn 01/02; repeat blood and urine cultures are in progress on meropenem, ID following monitor clinically pressors if needed to maintain adequate MAP > 65mmHg (3) Chronic indwelling Kyle catheter Plan: due to immobility and neurogenic bladder, hematuria improved urology is following, s/p kyle replacement 01/04 monitor urine output (4) UTI (urinary tract infection) Plan: history of same, now with urosepsis continue antibiotic therapy (5) Paraplegia Plan: needs assistance with ADLs on multiple pain medications for chronic pain (Neelima Muñoz) Plan patient was seen and examined. Renal function has improved. We will sign off. ( Michele Eaton MD) Problem Qualifiers (1) Sepsis: Qualified Code: A41.51 - Sepsis due to Escherichia coli Neelima Muñoz January 06, 2017 13:57 Michele Eaton MD January 06, 2017 15:41
[2017-01-06] MEDS: BACLOFEN 20 MG TAB PO PRN (16:48)
[2017-01-06] MEDS: ESCITALOPRAM OXALATE 20 MG TAB PO SCH (21:27)
[2017-01-06] MEDS: TOLTERODINE TARTRATE 4 MG CAP LA PO SCH (21:27)
[2017-01-06] MEDS: RIVAROXABAN 20 MG TAB PO SCH (21:27)
[2017-01-06] MEDS: CLOTRIMAZOLE 1% CREAM 15 GM TOPICAL PRN (21:39)
[2017-01-06] MEDS: ZOLPIDEM TARTRATE 5 MG TAB PO PRN (23:16)
[2017-01-06] MEDS: ALPRAZolam 1 MG TAB PO PRN (23:16)
[2017-01-06] MEDS: ACETAMINOPHEN 325 MG TAB PO PRN (23:17)
[2017-01-07] VITALS (9 sets, daily range): BP systolic 109–133; BP diastolic 56–82; PULSE 77–91; RESP 18–21; TEMP 96.5–97.5; O2SAT 93–99
[2017-01-07] MEDS: MORPHINE SULFATE 30 MG CONTROLLED RELEASE TAB PO SCH ×3 (01:50→16:53)
[2017-01-07] MEDS: MORPHINE SULFATE 100 MG CONTROLLED RELEASE TAB PO SCH ×3 (01:50→16:53)
[2017-01-07 05:30] LABS: AUTOMATED NEUTROPHIL # 3.7 TH/MM3 (1.8-7.7); BASOPHIL # 0.1 TH/MM3 (0-0.2); EOSINOPHIL # 0.4 TH/MM3 (0-0.4); EOSINOPHIL % 5.8 % (0.0-4.0); HEMATOCRIT 26.3 % (39.0-51.0); HEMO FLAGS DIFF FINAL; LYMPHOCYTE # 1.9 TH/MM3 (1.0-4.8); MEAN CELL VOLUME 74.9 FL (80.0-100.0); MEAN CORPUSCULAR HGB CONC 32.1 % (32.0-36.0); MONO % 9.3 % (0.0-8.0); NEUT % 54.9 % (16.0-70.0); PLATELET COUNT 328 TH/MM3 (150-450); RED BLOOD COUNT 3.51 MIL/MM3 (4.50-5.90); RED CELL DISTRIBUTION WIDTH 22.3 % (11.6-17.2); WHITE BLOOD COUNT 6.7 TH/MM3 (4.0-11.0)
[2017-01-07 05:37] LABS: BICARBONATE 28.9 MEQ/L (21.0-32.0); POTASSIUM 4.3 MEQ/L (3.5-5.1)
[2017-01-07] MEDS: INSULIN ASPART SUPPLEMENTAL SCALE SQ SCH ×4 (05:49→22:47)
[2017-01-07] MEDS: OXYBUTYNIN CHLORIDE 5 MG TAB PO SCH ×3 (05:50→22:48)
[2017-01-07] MEDS: MIDODRINE 5 MG TAB PO SCH ×3 (05:50→22:49)
[2017-01-07] MEDS: LEVOTHYROXINE SODIUM 50 MCG TAB PO SCH (05:51)
[2017-01-07] MEDS: INSULIN DETEMIR 100 UNITS/ML VIAL SQ SCH ×2 (07:00→22:46)
[2017-01-07] MEDS: INSULIN ASPART 1,000 UNITS/10 ML VIAL SQ SCH ×3 (08:00→17:21)
[2017-01-07] MEDS: COLLAGENASE OINT 30 GM TUBE TOPICAL SCH (09:00)
[2017-01-07] MEDS: SODIUM CHLORIDE 0.9% FLUSH 10 ML FLUSH IV FLUSH SCH ×3 (09:00→21:00)
[2017-01-07] MEDS: NYSTATIN 100,000 U/GM PWD 15 GM BTL TOPICAL SCH ×2 (09:00→21:00)
[2017-01-07] MEDS: MUPIROCIN 2% OINT 1 APPLIC/GM SYR EACH NARE SCH ×2 (09:14→22:47)
[2017-01-07] MEDS: LACTOBACILLUS ACIDOPHILUS TAB PO SCH ×3 (09:14→16:52)
[2017-01-07] MEDS: DOCUSATE SODIUM 50 MG/SENNA 8.6 MG TAB PO SCH ×2 (09:15→22:48)
[2017-01-07] MEDS: FAMOTIDINE 20 MG TAB PO SCH (09:15)
[2017-01-07] MEDS: GABAPENTIN 300 MG CAP PO SCH ×3 (09:15→16:53)
[2017-01-07] MEDS: ASCORBIC ACID 500 MG TAB PO SCH ×2 (09:15→22:48)
[2017-01-07] MEDS: ATORVASTATIN 40 MG TAB PO SCH (09:15)
[2017-01-07] MEDS: buPROPion HCL 150 MG SUSTAINED RELEASE TAB PO SCH (09:15)
[2017-01-07] MEDS: NYSTAT/DIPHENHY/LIDO MOUTHWASH (Adult) 120ML SWISH-SWAL SCH ×5 (09:18→21:00)
[2017-01-07] MEDS: diphenhydrAMINE HCL 2%/ZINC ACETATE 0.1% CREAM 30 APPLIC/30 GM TUBE TOPICAL PRN (09:27)
[2017-01-07] MEDS: NAPHAZOLINE HCL 0.012% OPHT SOLN 15 ML BOTTLE RIGHT EYE PRN (09:27)
[2017-01-07] MEDS: POVIDONE IODINE 10% OINT 30 GM TUBE TOPICAL SCH (09:29)
[2017-01-07] MEDS: CLOTRIMAZOLE 1% CREAM 15 GM TOPICAL SCH ×2 (09:30→21:00)
[2017-01-07] MEDS: FLUTICASONE PROPIONATE 50 MCG/ACT 16 GM NASAL SPRAY EACH NARE SCH (11:00)
[2017-01-07] MEDS: HYDROmorphone HCL PF 1 MG/ML VIAL IV PUSH PRN (11:06)
--- NOTE | 2017-01-07 12:01 | HHI.PR ---
Subjective Remarks Follow up for paraplegia, chronic pain, neurogenic bladder and severe sepsis. Patient seen and examined. Reports increasing pain if he is being turned and repositioned. States that nursing occasionally holds his pain medication for breakthrough insisted that he needs when he is being positioned. Discussed with patient will speak with the nurses and occasionally they have to hold secondary to his blood pressure either. In the low or he is too lethargic to take the medication. Patient verbalized understanding. Reports postnasal drip at night and dry mouth with the right side of his tongue being sore. States difficulty with chewing and swallowing disorder. Otherwise, denies SOB/ dyspnea. Denies chest pain, palpitations, headaches, dizziness. Denies fevers, chills, n/v/d. Denies hematuria, dysuria. Objective Vitals Vital Signs Date Time Temp Pulse Resp B/P Pulse Ox O2 Delivery O2 Flow Rate FiO2 01/07/17 08:00 97.4 83 21 123/76 98 01/07/17 04:06 94 21 01/07/17 04:00 96.9 80 20 118/67 98 01/07/17 01:35 98 40 01/07/17 00:00 96.5 85 20 133/56 99 01/06/17 20:28 95 40 01/06/17 20:00 Bi-Pap 01/06/17 20:00 98.6 91 18 109/52 96 01/06/17 18:34 Full Face Mask 40.0 01/06/17 16:00 97.4 98 16 120/61 90 01/06/17 12:00 98.0 92 16 123/67 94 I/O 01/06/17 01/06/17 01/06/17 01/07/17 01/07/17 01/07/17 07:00 15:00 23:00 07:00 15:00 23:00 Intake Total 1215 ml 440 ml 480 ml 1920 ml Output Total 2500 ml 2400 ml 1440 ml 4050 ml Balance -1285 ml -1960 ml -960 ml -2130 ml Intake Oral 420 ml 440 ml 480 ml 1920 ml IV Total 795 ml Output Urine Total 2500 ml 2400 ml 1440 ml 4050 ml # Bowel Movements 0 0 Result Diagram: 01/07/17 0453 01/07/17 0453 Imaging Last Impressions Chest X-Ray 01/05/17 0000 Signed Impressions: Service Date/Time: December 17:51 - CONCLUSION: Left arm PICC has his tip in the superior vena cava. Mild cardiomegaly with a globular configuration. Please see above. Elliott Livingston MD Objective Remarks GENERAL: Morbidly obese male, well-developed patient lying awake in bed on room air. SKIN: Warm and dry. No rash. HEENT: Normocephalic. Atraumatic.Pupils equal and round. No scleral icterus. No injection or drainage. No nasal bleeding or discharge. Mucous membranes pink and moist. Neck supple. CARDIOVASCULAR: Regular rate and rhythm. S1, S2 noted. No murmur appreciated. RESPIRATORY: No accessory muscle use. Distant breath sounds noted, clear to auscultation. Breath sounds equal bilaterally. GASTROINTESTINAL: Abdomen soft, round, obese, non-tender, nondistended. Normoactive bowel sounds x4. MUSCULOSKELETAL: No obvious deformities. Extremities without clubbing, cyanosis , or edema. NEUROLOGICAL: Awake and alert. No obvious cranial nerve deficits. Motor grossly within normal limits. Normal speech. PSYCHIATRIC: Appropriate mood and affect; insight and judgment normal. Procedures 11/25- S/P flexible cystoscopy with replacement of kyle catheter Date of Insertion: January 04, 2017 A/P Problem List: (1) UTI (urinary tract infection) ICD Code: N39.0 Status: Resolved (2) Chronic pain ICD Code: G89.29 Status: Chronic (3) Type 2 diabetes mellitus ICD Code: E11.9 Status: Chronic (4) Morbidly obese ICD Code: E66.01 Status: Chronic (5) Depression ICD Code: F32.9 Status: Chronic (6) Pressure ulcer ICD Code: L89.90 Status: Chronic (7) Sleep apnea ICD Code: G47.30 Status: Chronic (8) Hypothyroidism ICD Code: E03.9 Status: Chronic Assessment and Plan 25 y/o male with a history of paraplegia, neurogenic bladder, HTN, chronic reoccurring DVT, chronic pain, LAKA, sleep apnea, CHF. Prolonged hospital stay. Most recently patient was found to be in severe sepsis. Severe Sepsis (01/02/17 noted fever 102.1, leukocytosis 28.6k, BP 74/35, LISA source UTI, bacreremia E coli ) - recent h/o ESBL, MDRO. Patient also had diarrhea, C diff negative. Leukocytosis WBC 28.6, temp 102 on 01/02. Now resolved, WBC 7.1 --> 6.7 Renal function improved, creatinine 1.14 -->1.06. Note: Patient refused on multiple occasions to change kyle ( attempts by Dr Zhang and Dr Baez urology and was fired by urology as patient noncompliant). Kyle changed . Blood cultures positive E coli. Repeat urine culture ordered for post Kyle catheter insertion 01/04. Mixed monique found, probable contaminants. Ertapenem 1 g IV Q24hr. ID following, appreciate recommendations. MRSA in the sputum possibly colonization. Pt. hydrating well. DC IVF Acute kidney injury: suspect secondary to urinary tract infection, severe sepsis with end organ damage. Kyle changed 01/04/17. (note patient refused on multiple occasions to kyle changed). Neurogenic bladder Blood pressure stable. Continue Midodrine. Continue Oxybutynin 5mg bid. FC changed 01/04. Appreciate nephrology following. Improved DIE MAKER TRIM 1.14 --> 1.06 Nonproductive cough Chest x-ray ordered and reviewed, examination quality is less than optimal due to patient body habitus. No acute finding appreciated. Flonase daily x 14 days Diabetes Mellitus insulin dependent, uncontrolled A1c is 9.7 Monitor Accu-Cheks, continue sliding scale insulin. Continue Levemir 30 units subq in am and 32 units subq qhs. Continue prandial insulin coverage, Novolog 3 units TID before each meal. Continue to monitor and adjust the regimen as needed. Encouraged compliance with ordered ADA diet. Chronic pain. Home medications baclofen, morphine, oxycodone. Continue Oramorph. Dilaudid for breakthrough may be given if BP wnl and patient is not lethargic. Discuss with nursing. Sleep apnea Insomnia - Continue CPAP at night - Continue home medications Ambien PRN & Trazadone 200 qHS. BIPAP at night. Morbid obesity: BMI 97.9. Outpatient general surgery referral needed for possible surgical interventions. Chronic pressure ulcers: Wound care team following. Patient turning himself. Anxiety and depression: no homicidal or suicidal ideations Was evaluated by psych in the ER, Felipe acted lifted, did not meet inpatient psychiatric and admission criteria. Patient has long history of being on psychiatric medication, currently on Lexapro. Previously was on [place] and did not do well with mood on this. Psychiatry follow-up appreciated. Hyperlipidemia: Continue Lipitor. Hypothyroidism: Continue levothyroxine. Substance use: tox screen on admission significant for opiates, benzos, cannabinoids. Constipation: PRN laxatives. Mouth sore: Magic mouthwash DVT prophylaxis: On Xarelto DNR status Palliative care following. Discuss with patient, nursing Discharge Planning Placement to SNF coordinated by case management. Needs accepting SNF. Last CM note 01/04 placed a call to [facility] [phone] and i spoke to suzanna and ananda briseno, she has no superintendent container terminal beds and has stated that [facility] a [facility] micah [facility] [phone] and i had to leave a message with a request for a call back. i will continue to search for a snf for this pt Problem Qualifiers (1) Morbidly obese: Qualified Code: E66.01 - Morbid obesity, unspecified obesity type (2) Pressure ulcer: Zenia Sung January 07, 2017 12:01
[2017-01-07] MEDS: ERTAPENEM INJ 1,000 MG in SODIUM CHLORIDE 0.9% INJ 100 ML IV SCH (13:44)
--- NOTE | 2017-01-07 14:09 | HHI.IDPN ---
Subjective Subjective Remarks better afebrile WBC normal Creatinine mormal Not confused Antibiotics ertapenem Past Medical History paraplegia Allergies: Coded Allergies: Adhesives (Verified Allergy, Severe, 11/10/16) Azactam (Verified Allergy, Mild, rash, 11/10/16) Mild localized rash. Confirm with patient on January 11, 2016. Clindamycin (Verified Allergy, Mild, rash, 11/10/16) Mild localized rash. Confirm with patient on January 11, 2016. Penicillin (Verified Allergy, Mild, rash, 11/10/16) Mild localized rash. Confirm with patient on January 11, 2016. *MDRO Multi-Drug Resistant Organism (Verified Adverse Reaction, Unknown, ) E. coli ESBL positive (urine) - 07/2012, 11/29/2016 MRSA (foot- 10/27/15),(blood-12/2015),(ankle-04/16/16); MRSA PCR (nares) positive - 01/10/16; ESBL+Klebsiella Pneumoniae & VRE (urine-05/23/16) MDR Pseudomonas aeruginosa (urine) - 05/23/16 Uncoded Allergies: CEFEPIME (Allergy, Mild, Rash, 01/11/16) Mild localized rash. Confirm with patient on January 11, 2016. Objective . Vital Signs Date Time Temp Pulse Resp B/P Pulse Ox O2 Delivery O2 Flow Rate FiO2 01/07/17 12:00 97.5 77 19 128/61 93 01/07/17 08:00 97.4 83 21 123/76 98 01/07/17 04:06 94 21 01/07/17 04:00 96.9 80 20 118/67 98 01/07/17 01:35 98 40 01/07/17 00:00 96.5 85 20 133/56 99 01/06/17 20:28 95 40 01/06/17 20:00 Bi-Pap 01/06/17 20:00 98.6 91 18 109/52 96 01/06/17 18:34 Full Face Mask 40.0 01/06/17 16:00 97.4 98 16 120/61 90 01/06/17 01/06/17 01/07/17 15:00 23:00 07:00 Intake Total 440 ml 480 ml 1920 ml Output Total 2400 ml 1440 ml 4050 ml Balance -1960 ml -960 ml -2130 ml Intake Oral 440 ml 480 ml 1920 ml Output Urine Total 2400 ml 1440 ml 4050 ml # Bowel Movements 0 . Laboratory Tests Test 01/06/17 01/07/17 04:00 04:53 White Blood Count 7.1 TH/MM3 6.7 TH/MM3 Red Blood Count 3.35 MIL/MM3 3.51 MIL/MM3 Hemoglobin 7.8 GM/DL 8.4 GM/DL Hematocrit 25.0 % 26.3 % Mean Corpuscular Volume 74.6 FL 74.9 FL Mean Corpuscular Hemoglobin 23.4 PG 24.0 PG Mean Corpuscular Hemoglobin 31.3 % 32.1 % Concent Red Cell Distribution Width 22.0 % 22.3 % Platelet Count 275 TH/MM3 328 TH/MM3 Mean Platelet Volume 7.8 FL 8.0 FL Neutrophils (%) (Auto) 54.9 % Lymphocytes (%) (Auto) 29.0 % Monocytes (%) (Auto) 9.3 % Eosinophils (%) (Auto) 5.8 % Basophils (%) (Auto) 1.0 % Neutrophils # (Auto) 3.7 TH/MM3 Lymphocytes # (Auto) 1.9 TH/MM3 Monocytes # (Auto) 0.6 TH/MM3 Eosinophils # (Auto) 0.4 TH/MM3 Basophils # (Auto) 0.1 TH/MM3 CBC Comment DIFF FINAL Differential Comment Laboratory Tests Test 01/06/17 01/07/17 04:00 04:53 Sodium Level 143 MEQ/L 142 MEQ/L Potassium Level 4.1 MEQ/L 4.3 MEQ/L Chloride Level 110 MEQ/L 108 MEQ/L Carbon Dioxide Level 27.3 MEQ/L 28.9 MEQ/L Anion Gap 6 MEQ/L 5 MEQ/L Blood Urea Nitrogen 26 MG/DL 25 MG/DL Creatinine 1.14 MG/DL 1.06 MG/DL Estimat Glomerular Filtration 76 ML/MIN 83 ML/MIN Rate Random Glucose 107 MG/DL 177 MG/DL Calcium Level 8.1 MG/DL 8.5 MG/DL Imaging Last Impressions Chest X-Ray 01/05/17 0000 Signed Impressions: Service Date/Time: December 17:51 - CONCLUSION: Left arm PICC has his tip in the superior vena cava. Mild cardiomegaly with a globular configuration. Please see above. Elliott Livingston MD Physical Exam CONSTITUTIONAL/GENERAL: This is a morbudly obese patient, in no apparent distress. Not confused TUBES/LINES/DRAINS: SKIN: No jaundice, rashes, or lesions. HEAD: Atraumatic. Normocephalic. EYES: [place] EOMI CARDIOVASCULAR: distant heart sounds, no murmurs RESPIRATORY/CHEST: unlabored respirations. 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 Morbid obesity Severe sepsis, E.coli from comlicated UTI 2/2 indwelling kyle 2/2 neurogenic bladder 2/2 paraplegia Clinically resolved H/o MDROs (ESBL, VRE) including recent UTI 2/2 ESBL + Kleb pneiumo, Proteus H/o adverse reactions to multiple abx: including azacta, cefepime, PCN, but tolerates carbapenem wo issues in the past including during this admission L b uttock chronic decub, not actively infected Diarrhea, hospi acquired, h/o recent abx use, C.diff negative Pt is DNR MRSA in sputum, CXR negative - cw colonisation - complete ertapenem thru 01/15 - will sign off, reconsult as needed dw Radha Caballero MD January 07, 2017 14:09
[2017-01-07] MEDS: BACLOFEN 20 MG TAB PO PRN (14:35)
[2017-01-07] MEDS: SIMETHICONE 80 MG CHEWABLE TAB CHEW PRN (16:53)
[2017-01-07] MEDS: ALPRAZolam 1 MG TAB PO PRN (16:53)
[2017-01-07] MEDS: ONDANSETRON HCL 4 MG/2 ML VIAL IV PUSH PRN (17:20)
[2017-01-07] MEDS: RIVAROXABAN 20 MG TAB PO SCH (22:48)
[2017-01-07] MEDS: ESCITALOPRAM OXALATE 20 MG TAB PO SCH (22:48)
[2017-01-07] MEDS: TOLTERODINE TARTRATE 4 MG CAP LA PO SCH (22:48)
[2017-01-07] MEDS: traZODone HCL 100 MG TAB PO SCH (22:50)
[2017-01-08] VITALS: BP 137/80; PULSE 93; RESP 18; TEMP 95.6; O2SAT 95
[2017-01-08] MEDS: ZOLPIDEM TARTRATE 5 MG TAB PO PRN ×2 (00:01→22:17)
[2017-01-08] MEDS: BACLOFEN 20 MG TAB PO PRN ×3 (00:01→13:25)
[2017-01-08] MEDS: MORPHINE SULFATE 30 MG CONTROLLED RELEASE TAB PO SCH ×3 (01:50→16:44)
[2017-01-08] MEDS: MORPHINE SULFATE 100 MG CONTROLLED RELEASE TAB PO SCH ×3 (01:51→16:44)
[2017-01-08] MEDS: OXYBUTYNIN CHLORIDE 5 MG TAB PO SCH ×3 (06:08→21:49)
[2017-01-08] MEDS: LEVOTHYROXINE SODIUM 50 MCG TAB PO SCH (06:08)
[2017-01-08] MEDS: MIDODRINE 5 MG TAB PO SCH ×3 (06:08→21:48)
[2017-01-08] MEDS: ALPRAZolam 1 MG TAB PO PRN ×2 (06:08→22:17)
[2017-01-08] MEDS: INSULIN ASPART SUPPLEMENTAL SCALE SQ SCH ×4 (06:11→21:00)
[2017-01-08] MEDS: NYSTAT/DIPHENHY/LIDO MOUTHWASH (Adult) 120ML SWISH-SWAL SCH ×6 (06:18→21:00)
[2017-01-08] MEDS: INSULIN DETEMIR 100 UNITS/ML VIAL SQ SCH ×2 (07:00→22:18)
[2017-01-08 08:00] VITALS: BP 114/53; PULSE 83; RESP 21; TEMP 98.6; O2SAT 92
[2017-01-08] MEDS: INSULIN ASPART 1,000 UNITS/10 ML VIAL SQ SCH ×3 (08:00→16:46)
[2017-01-08] MEDS: buPROPion HCL 150 MG SUSTAINED RELEASE TAB PO SCH (08:52)
[2017-01-08] MEDS: ASCORBIC ACID 500 MG TAB PO SCH ×2 (08:52→21:49)
[2017-01-08] MEDS: LACTOBACILLUS ACIDOPHILUS TAB PO SCH ×3 (08:52→16:43)
[2017-01-08] MEDS: GABAPENTIN 300 MG CAP PO SCH ×3 (08:53→16:44)
[2017-01-08] MEDS: DOCUSATE SODIUM 50 MG/SENNA 8.6 MG TAB PO SCH ×2 (08:53→21:49)
[2017-01-08] MEDS: FAMOTIDINE 20 MG TAB PO SCH (08:53)
[2017-01-08] MEDS: ATORVASTATIN 40 MG TAB PO SCH (08:53)
[2017-01-08] MEDS: MUPIROCIN 2% OINT 1 APPLIC/GM SYR EACH NARE SCH ×2 (08:54→21:48)
[2017-01-08] MEDS: FLUTICASONE PROPIONATE 50 MCG/ACT 16 GM NASAL SPRAY EACH NARE SCH (08:56)
[2017-01-08] MEDS: SODIUM CHLORIDE 0.9% FLUSH 10 ML FLUSH IV FLUSH SCH ×3 (08:57→21:00)
[2017-01-08] MEDS: POVIDONE IODINE 10% OINT 30 GM TUBE TOPICAL SCH (08:57)
[2017-01-08] MEDS: NYSTATIN 100,000 U/GM PWD 15 GM BTL TOPICAL SCH ×2 (08:57→21:00)
[2017-01-08] MEDS: CLOTRIMAZOLE 1% CREAM 15 GM TOPICAL SCH ×2 (08:59→21:00)
[2017-01-08] MEDS: COLLAGENASE OINT 30 GM TUBE TOPICAL SCH (09:00)
--- NOTE | 2017-01-08 09:24 | HHI.PR ---
Subjective Remarks No acute events overnight. Afebrile, vital signs stable. Patient continues to complain of all over body aches and pain. He also complains of the chronic pain in his low back that is worse with the constant changing. His 18 [place] Kyle catheter has been leaking for the past 2 days despite placement by urology. Patient has a significant amount of urine leaking from around the Kyle. Patient requests his IV Dilaudid be restarted. Objective Vitals Vital Signs Date Time Temp Pulse Resp B/P Pulse Ox O2 Delivery O2 Flow Rate FiO2 01/08/17 08:00 98.6 83 21 114/53 92 01/08/17 00:30 Bi-Pap 01/08/17 00:00 95.6 93 18 137/80 95 01/07/17 22:45 Room Air 01/07/17 21:30 94 21 01/07/17 20:00 96.6 91 18 109/63 93 01/07/17 16:00 97.4 86 19 133/82 96 01/07/17 12:00 97.5 77 19 128/61 93 I/O 01/07/17 01/07/17 01/07/17 01/08/17 01/08/17 01/08/17 07:00 15:00 23:00 07:00 15:00 23:00 Intake Total 1920 ml 960 ml 960 ml 960 ml Output Total 4050 ml 4200 ml 4500 ml 2950 ml Balance -2130 ml -3240 ml -3540 ml -1990 ml Intake Oral 1920 ml 960 ml 960 ml 960 ml IV Total 0 ml Output Urine Total 4050 ml 4200 ml 4500 ml 2950 ml # Bowel Movements 0 Result Diagram: 01/07/17 0453 01/07/17 0453 Objective Remarks GENERAL: Morbidly obese male, well-developed patient lying awake in bed on room air. SKIN: Warm and dry. No rash. HEENT: Normocephalic. Atraumatic.Pupils equal and round. No scleral icterus. No injection or drainage. No nasal bleeding or discharge. Mucous membranes pink and moist. Neck supple. CARDIOVASCULAR: Regular rate and rhythm. S1, S2 noted. No murmur appreciated. RESPIRATORY: No accessory muscle use. Distant breath sounds noted, clear to auscultation. Breath sounds equal bilaterally. GASTROINTESTINAL: Abdomen soft, round, obese, non-tender, nondistended. Normoactive bowel sounds x4. MUSCULOSKELETAL: No obvious deformities. Extremities without clubbing, cyanosis , or edema. NEUROLOGICAL: Awake and alert. No obvious cranial nerve deficits. Motor grossly within normal limits. Normal speech. PSYCHIATRIC: Appropriate mood and affect; insight and judgment normal. Procedures 11/25- S/P flexible cystoscopy with replacement of kyle catheter Date of Insertion: January 04, 2017 A/P Problem List: (1) UTI (urinary tract infection) ICD Code: N39.0 Status: Resolved (2) Chronic pain ICD Code: G89.29 Status: Chronic (3) Type 2 diabetes mellitus ICD Code: E11.9 Status: Chronic (4) Morbidly obese ICD Code: E66.01 Status: Chronic (5) Depression ICD Code: F32.9 Status: Chronic (6) Pressure ulcer ICD Code: L89.90 Status: Chronic (7) Sleep apnea ICD Code: G47.30 Status: Chronic (8) Hypothyroidism ICD Code: E03.9 Status: Chronic Assessment and Plan 25 y/o male with a history of paraplegia, neurogenic bladder, HTN, chronic reoccurring DVT, chronic pain, LAKA, sleep apnea, CHF. Prolonged hospital stay. Most recently patient was found to be in severe sepsis. Severe Sepsis (01/02/17 noted fever 102.1, leukocytosis 28.6k, BP 74/35, LISA source UTI, bacreremia E coli ) - recent h/o ESBL, MDRO. Patient also had diarrhea, C diff negative. Leukocytosis WBC 28.6, temp 102 on 01/02. Now resolved, WBC 7.1 --> 6.7 Renal function improved, creatinine 1.14 -->1.06. Note: Patient refused on multiple occasions to change kyle ( attempts by Dr Zhang and Dr Baez urology and was fired by urology as patient noncompliant). Kyle changed . Continues to leak. Reconsult Urology. Blood cultures positive E coli. Repeat urine culture ordered for post Kyle catheter insertion 01/04. Mixed monique found, probable contaminants. Ertapenem 1 g IV Q24hr until 01/15. ID following signed off. MRSA in the sputum possibly colonization. Pt. hydrating well. Acute kidney injury: suspect secondary to urinary tract infection, severe sepsis with end organ damage. Kyle changed 01/04/17. (note patient refused on multiple occasions to kyle changed). Neurogenic bladder Blood pressure stable. Continue Midodrine. Continue Oxybutynin 5mg bid. FC changed 01/04. Appreciate nephrology following. Improved STAFF MIDWIFE 1.14 --> 1.06 Nonproductive cough Chest x-ray ordered and reviewed, examination quality is less than optimal due to patient body habitus. No acute finding appreciated. Flonase daily x 14 days Diabetes Mellitus insulin dependent, uncontrolled A1c is 9.7 Monitor Accu-Cheks, continue sliding scale insulin. Continue Levemir 30 units subq in am and 32 units subq qhs. Continue prandial insulin coverage, Novolog 3 units TID before each meal. Continue to monitor and adjust the regimen as needed. Encouraged compliance with ordered ADA diet. Chronic pain. Home medications baclofen, morphine, oxycodone. Continue Oramorph. No IV pain medications at this time. Sleep apnea Insomnia - Continue CPAP at night - Continue home medications Ambien PRN & Trazadone 200 qHS. BIPAP at night. Morbid obesity: BMI 97.9. Outpatient general surgery referral needed for possible surgical interventions. Chronic pressure ulcers: Wound care team following. Patient turning himself. Anxiety and depression: no homicidal or suicidal ideations Was evaluated by psych in the ER, Felipe acted lifted, did not meet inpatient psychiatric and admission criteria. Patient has long history of being on psychiatric medication, currently on Lexapro. Previously was on [place] and did not do well with mood on this. Psychiatry follow-up appreciated. Hyperlipidemia: Continue Lipitor. Hypothyroidism: Continue levothyroxine. Substance use: tox screen on admission significant for opiates, benzos, cannabinoids. Constipation: PRN laxatives. Mouth sore: Magic mouthwash DVT prophylaxis: On Xarelto DNR status Palliative care following. Discharge Planning Placement to SNF coordinated by case management. Needs accepting SNF. Last CM note 01/04 placed a call to [facility] [phone] and i spoke to suzanna and ananda briseno, she has no [facility] beds and has stated that i [facility] placed a call to micah [facility] [phone] and i had to leave a message with a request for a call back. 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
[2017-01-08 10:06] VITALS: O2SAT 92
[2017-01-08 12:00] VITALS: BP 119/67; PULSE 85; RESP 20; TEMP 97.9; O2SAT 95
--- NOTE | 2017-01-08 14:39 | HHI.PR ---
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 Contacted to evaluate patient as he is having some leakage around the Montelongo catheter. Montelongo catheter was last replaced on January 04 over a wire by Dr. Timoteo Zhang. Patient reports that it appears that there is more leakage around the catheter whenever he is administered Lasix. Denies hematuria. Objective Vital Signs Vital Signs Date Time Temp Pulse Resp B/P Pulse Ox O2 Delivery O2 Flow Rate FiO2 01/08/17 12:00 97.9 85 20 119/67 95 01/08/17 10:06 92 21 01/08/17 08:00 98.6 83 21 114/53 92 01/08/17 00:30 Bi-Pap 01/08/17 00:00 95.6 93 18 137/80 95 01/07/17 22:45 Room Air 01/07/17 21:30 94 21 01/07/17 20:00 96.6 91 18 109/63 93 01/07/17 16:00 97.4 86 19 133/82 96 Intake & Output 01/08/17 01/08/17 07:00 19:00 Intake Total 1920 ml 720 ml Output Total 7450 ml 3450 ml Balance -5530 ml -2730 ml Intake Oral 1920 ml 720 ml IV Total 0 ml Output Urine Total 7450 ml 3450 ml # Bowel Movements 0 Result Diagram: 01/07/17 0453 01/07/17 0453 Objective Remarks Montelongo catheter in place and draining clear yellow urine. Small amount of seepage noted around catheter. Medications and IVs Current Medications Medications (Trade) Dose Ordered Sig/Shyam Route Start Time Stop Time Status Last Admin (NS Flush) 2 ml UNSCH PRN IV FLUSH 11/10/16 21:45 11/28/16 07:09 (NS Flush) 2 ml BID IV FLUSH 11/11/16 09:00 01/08/17 08:57 (Narcan Inj) 0.4 mg UNSCH PRN IV 11/10/16 21:45 (Xanax) 2 mg Q6HR PRN PO 11/11/16 02:00 01/08/17 06:08 (Vitamin C) 500 mg BID PO 11/11/16 09:00 01/08/17 08:52 (Lipitor) 40 mg DAILY PO 11/11/16 09:00 01/08/17 08:53 (Lioresal) 20 mg Q6HR PRN PO 11/11/16 02:00 01/08/17 13:25 (Peridex 0.12% Liq) 10 ml BID PRN SWISH-SPIT 11/11/16 02:00 (Lotrimin 1% Cream) 1 applic DAILY PRN TOPICAL 11/11/16 02:00 01/06/17 21:39 (Lasix) 40 mg BID PO 11/11/16 09:00 Hold 11/28/16 08:34 (Synthroid) 50 mcg DAILY@06 PO 11/11/16 06:00 01/08/17 06:08 (Oramorph Sr) 30 mg Q8H PO 11/11/16 02:00 01/08/17 08:52 (Oramorph Sr) 100 mg Q8H PO 11/11/16 02:00 01/08/17 08:52 (KCl) 20 meq DAILY PO 11/11/16 09:00 Hold 11/16/16 08:47 (Phenergan) 25 mg Q8HR PRN PO 11/11/16 02:00 12/29/16 13:52 (Pepcid) 20 mg DAILY PO 11/11/16 09:00 01/08/17 08:53 (Xarelto) 20 mg HS PO 11/11/16 21:00 01/07/17 22:48 (Mylicon Chew) 160 mg ACHS PRN CHEW 11/11/16 02:00 01/07/17 16:53 (Zofran Inj) 4 mg Q6HR PRN IV PUSH 11/11/16 03:15 01/07/17 17:20 (D50w (Vial) Inj) 25 ml UNSCH PRN IV PUSH 11/12/16 11:45 (Glucagon Inj) 1 mg UNSCH PRN OTHER 11/12/16 11:45 (Citroma Liq) 600 ml Q24H PRN PO 11/13/16 14:45 01/02/17 11:47 (Mycostatin Powder) 1 applic BID TOPICAL 11/13/16 21:00 01/08/17 08:57 (Tylenol) 650 mg Q4H PRN PO 11/18/16 17:30 01/06/17 23:17 (Santyl Oint) 1 applic DAILY TOPICAL 11/23/16 12:45 01/08/17 09:00 (Betadine 10% Oint) 1 applic DAILY TOPICAL 11/23/16 18:32 01/08/17 08:57 (NovoLOG INJ) 12 units TIDAC SQ 11/30/16 17:00 Hold 11/30/16 18:43 (Proamatine) 10 mg Q8HR PO 11/30/16 21:00 01/08/17 13:16 (Roxicodone) 30 mg Q4H PRN PO 12/06/16 12:30 01/08/17 10:36 (Wellbutrin Sr) 150 mg DAILY PO 12/10/16 16:15 01/08/17 08:52 (Lexapro) 20 mg HS PO 12/10/16 21:00 01/07/17 22:48 (Erin-Colace) 1 tab BID PO 12/10/16 21:00 01/08/17 08:53 (Ambien) 5 mg HS PRN PO 12/10/16 21:00 01/08/17 00:01 (Benadryl 2% Cream) 1 applic TID PRN TOPICAL 12/11/16 08:15 01/07/17 09:27 (Neurontin) 300 mg TID PO 12/12/16 18:00 01/08/17 13:16 (Ditropan) 5 mg Q8HR PO 12/14/16 14:00 01/08/17 13:16 (Detrol La) 4 mg HS PO 12/14/16 21:00 01/07/17 22:48 (Miralax) 17 gm DAILY PRN PO 12/19/16 09:45 12/26/16 10:17 (Desyrel) 200 mg HS@23 PO 12/21/16 23:00 01/07/17 22:50 (Lactulose Liq) 30 ml DAILY PRN PO 12/24/16 12:15 01/02/17 11:47 (Fleets Enema (Adult)) 133 ml UNSCH PRN RECTAL 12/26/16 11:45 12/26/16 12:49 (Levemir Inj) 32 units HS SQ 12/29/16 21:00 01/07/17 22:46 (Lotrimin 1% Cream) 1 applic Q12HR TOPICAL 01/01/17 09:00 01/08/17 08:59 (NovoLOG INJ) 3 units TIDAC SQ 01/02/17 12:00 01/07/17 17:21 (Lactinex) 1 tab TID PO 01/02/17 13:00 01/08/17 13:16 (Clear Eyes Redness Relief 0.012% Opth Soln) 1 drop Q6H PRN RIGHT EYE 01/02/17 13:45 01/07/17 09:27 (Magic Mouthwash Adult Liq) 10 ml QID SWISH-SWAL 01/02/17 18:00 01/16/17 17:59 01/08/17 13:17 Mupirocin 1 applic 1 applic BID EACH NARE 01/04/17 21:00 01/11/17 20:59 01/08/17 08:54 (INVanz INJ/NS Inj) 100 ml @ 200 mls/hr Q24H IV 01/05/17 15:00 01/15/17 14:59 01/07/17 13:44 (Heparin Central Flush) See Protocol DAILY IV FLUSH 01/06/17 09:00 01/08/17 08:56 (Heparin Central Flush) See Protocol UNSCH PRN IV FLUSH 01/05/17 18:30 (NS Flush) UNSCH PRN IV FLUSH 01/05/17 18:30 (NS Flush) See Protocol DAILY IV FLUSH 01/06/17 09:00 (NS Flush) See Protocol UNSCH PRN IV FLUSH 01/05/17 18:30 (Flonase Yonatan Spr) 2 spray DAILY EACH NARE 01/07/17 11:00 01/21/17 10:59 (Magic Mouthwash Adult Liq) 5 ml BIDAC SWISH-SWAL 01/07/17 16:00 01/08/17 06:18 Assessment and Plan Problem List: (1) Neurogenic bladder ICD Code: N31.9 Status: Chronic (2) Paraplegia ICD Code: G82.20 Status: Chronic (3) Sepsis ICD Code: A41.9 Status: Resolved Assessment and Plan Urologic impression: #1 neurogenic bladder dysfunction being managed with indwelling Montelongo catheter #2 leakage around Montelongo possibly related to intermittent outflow obstruction from mucous #3 due to the patient's morbidly obese status leakage around the Montelongo catheter is going to be an ongoing recurrent problem with no clear solution. Recommendations: #1 Montelongo catheter will need to be replaced on a monthly basis #2 irrigate Montelongo catheter with 50 cc normal saline on a daily basis to keep lumen patent #3 absorbent pads around Montelongo catheter on a when necessary basis Problem Qualifiers (1) Sepsis: Qualified Code: A41.51 - Sepsis due to Escherichia coli Claude Meraz MD January 08, 2017 14:39
[2017-01-08 16:00] VITALS: BP 119/68; PULSE 88; RESP 19; TEMP 98.2; O2SAT 95
[2017-01-08] MEDS: ERTAPENEM INJ 1,000 MG in SODIUM CHLORIDE 0.9% INJ 100 ML IV SCH (16:45)
[2017-01-08] MEDS: ONDANSETRON HCL 4 MG/2 ML VIAL IV PUSH PRN (18:11)
[2017-01-08] MEDS: SIMETHICONE 80 MG CHEWABLE TAB CHEW PRN (18:11)
[2017-01-08 20:00] VITALS: BP 115/58; PULSE 84; RESP 20; TEMP 97.3; O2SAT 95
[2017-01-08 21:05] LABS: MEAN CORPUSCULAR HGB CONC 29.9 % (32.0-36.0)
[2017-01-08] MEDS: ESCITALOPRAM OXALATE 20 MG TAB PO SCH (21:48)
[2017-01-08] MEDS: RIVAROXABAN 20 MG TAB PO SCH (21:48)
[2017-01-08] MEDS: TOLTERODINE TARTRATE 4 MG CAP LA PO SCH (21:48)
[2017-01-08] MEDS: traZODone HCL 100 MG TAB PO SCH (21:48)
[2017-01-09] VITALS: BP 107/54; PULSE 89; RESP 20; TEMP 96.3; O2SAT 93
[2017-01-09] MEDS: MORPHINE SULFATE 30 MG CONTROLLED RELEASE TAB PO SCH ×3 (02:53→18:25)
[2017-01-09] MEDS: MORPHINE SULFATE 100 MG CONTROLLED RELEASE TAB PO SCH ×3 (02:54→18:25)
[2017-01-09 05:32] LABS: BASOPHIL # 0.1 TH/MM3 (0-0.2); BASOPHIL % 0.9 % (0.0-2.0); EOSINOPHIL # 0.5 TH/MM3 (0-0.4); EOSINOPHIL % 4.8 % (0.0-4.0); HEMO FLAGS DIFF FINAL; LYMPH % 24.3 % (9.0-44.0); LYMPHOCYTE # 2.3 TH/MM3 (1.0-4.8); MEAN CELL VOLUME 76.6 FL (80.0-100.0); MEAN CORPUSCULAR HEMOGLOBIN 22.9 PG (27.0-34.0); MONO % 6.8 % (0.0-8.0); NEUT % 63.2 % (16.0-70.0); PLATELET COUNT 381 TH/MM3 (150-450); RED BLOOD COUNT 3.78 MIL/MM3 (4.50-5.90); RED CELL DISTRIBUTION WIDTH 21.6 % (11.6-17.2); WHITE BLOOD COUNT 9.5 TH/MM3 (4.0-11.0)
[2017-01-09 05:52] LABS: BICARBONATE 32.3 MEQ/L (21.0-32.0); POTASSIUM 5.4 MEQ/L (3.5-5.1)
[2017-01-09] MEDS: OXYBUTYNIN CHLORIDE 5 MG TAB PO SCH ×3 (06:09→21:21)
[2017-01-09] MEDS: INSULIN ASPART SUPPLEMENTAL SCALE SQ SCH ×4 (06:10→21:26)
[2017-01-09] MEDS: NYSTAT/DIPHENHY/LIDO MOUTHWASH (Adult) 120ML SWISH-SWAL SCH ×6 (06:10→21:22)
[2017-01-09] MEDS: MIDODRINE 5 MG TAB PO SCH ×3 (06:10→21:21)
[2017-01-09] MEDS: LEVOTHYROXINE SODIUM 50 MCG TAB PO SCH (06:10)
[2017-01-09] MEDS: INSULIN DETEMIR 100 UNITS/ML VIAL SQ SCH ×2 (06:11→21:25)
[2017-01-09 08:00] VITALS: BP 125/56; PULSE 76; RESP 20; TEMP 97.3; O2SAT 91
[2017-01-09] MEDS: INSULIN ASPART 1,000 UNITS/10 ML VIAL SQ SCH ×3 (08:00→17:00)
[2017-01-09] MEDS: FLUTICASONE PROPIONATE 50 MCG/ACT 16 GM NASAL SPRAY EACH NARE SCH (09:00)
[2017-01-09] MEDS: SODIUM CHLORIDE 0.9% FLUSH 10 ML FLUSH IV FLUSH SCH ×3 (09:00→21:22)
[2017-01-09] MEDS: MUPIROCIN 2% OINT 1 APPLIC/GM SYR EACH NARE SCH ×2 (09:06→21:20)
[2017-01-09] MEDS: buPROPion HCL 150 MG SUSTAINED RELEASE TAB PO SCH (09:07)
[2017-01-09] MEDS: FAMOTIDINE 20 MG TAB PO SCH (09:07)
[2017-01-09] MEDS: ASCORBIC ACID 500 MG TAB PO SCH ×2 (09:07→21:21)
[2017-01-09] MEDS: ATORVASTATIN 40 MG TAB PO SCH (09:07)
[2017-01-09] MEDS: GABAPENTIN 300 MG CAP PO SCH ×3 (09:07→18:25)
[2017-01-09] MEDS: LACTOBACILLUS ACIDOPHILUS TAB PO SCH ×3 (09:07→18:25)
[2017-01-09] MEDS: CLOTRIMAZOLE 1% CREAM 15 GM TOPICAL SCH ×2 (09:08→21:22)
[2017-01-09] MEDS: NYSTATIN 100,000 U/GM PWD 15 GM BTL TOPICAL SCH ×2 (09:08→21:23)
[2017-01-09] MEDS: POVIDONE IODINE 10% OINT 30 GM TUBE TOPICAL SCH (09:09)
[2017-01-09] MEDS: COLLAGENASE OINT 30 GM TUBE TOPICAL SCH (09:09)
[2017-01-09] MEDS: DOCUSATE SODIUM 50 MG/SENNA 8.6 MG TAB PO SCH ×2 (09:10→21:21)
[2017-01-09] MEDS: HYDROmorphone HCL PF 1 MG/ML VIAL IV PUSH PRN (13:30)
[2017-01-09] MEDS: SIMETHICONE 80 MG CHEWABLE TAB CHEW PRN (13:42)
[2017-01-09] MEDS: BACLOFEN 20 MG TAB PO PRN ×2 (13:42→21:40)
[2017-01-09] MEDS: ERTAPENEM INJ 1,000 MG in SODIUM CHLORIDE 0.9% INJ 100 ML IV SCH (15:18)
[2017-01-09 16:00] VITALS: BP 135/64; PULSE 98; RESP 22; TEMP 96.1; O2SAT 94
--- NOTE | 2017-01-09 16:38 | HHI.PR ---
Subjective Remarks Follow up for paraplegia, chronic pain, neurogenic bladder and severe sepsis. Pt reported increasing pain if he is being turned and repositioned. Also reported continued leakage from his indwelling catheter and spoke of concerns of urine entering his wounds. He recounted having been ill over the past week and said he was "seeking things that I know weren't real." He stated that symptom resolved "about two days ago. " Pt spoke of having issues positioning on the bed; he reported lymphedema swelling will lead to his left leg and tissue to "get moved between the bed rails." He was asking for a "wedge pillow" to prevent movement. Pt denies cough, SOB/ dyspnea, chest pain, palpitations, headaches, dizziness, fevers, chills, n/v/d, bloody urine or stool. No other issues noted or reported. Objective Vitals Vital Signs Date Time Temp Pulse Resp B/P Pulse Ox O2 Delivery O2 Flow Rate FiO2 01/09/17 08:35 Room Air 01/09/17 08:00 97.3 76 20 125/56 91 01/09/17 04:26 16 01/09/17 04:26 16 01/09/17 02:26 18 01/09/17 00:00 96.3 89 20 107/54 93 01/08/17 21:40 Room Air 01/08/17 20:00 97.3 84 20 115/58 95 01/08/17 18:07 21 I/O 01/08/17 01/08/17 01/08/17 01/09/17 01/09/17 01/09/17 07:00 15:00 23:00 07:00 15:00 23:00 Intake Total 960 ml 720 ml 480 ml 320 ml 0 ml Output Total 2950 ml 3450 ml 3400 ml 1750 ml Balance -1990 ml -2730 ml -2920 ml -1430 ml 0 ml Intake Oral 960 ml 720 ml 480 ml 320 ml IV Total 0 ml 0 ml 0 ml 0 ml Output Urine Total 2950 ml 3450 ml 3400 ml 1750 ml # Bowel Movements 0 0 0 Result Diagram: 01/09/1751401/09/17514 Imaging No imaging ordered or pending within the past 24 hours. Objective Remarks GENERAL: Pt laying abed, morbidly obese, upper body shirtless, lower portion covered with sheet. SKIN: Warm and dry. Right leg amputated, catheter noted to be exiting lower portion of his body. HEAD: Normocephalic. EYES: No scleral icterus. No injection or drainage. NECK: Supple, trachea midline. No lymphadenopathy. CARDIOVASCULAR: Regular rate and rhythm without murmurs, gallops, or rubs. RESPIRATORY: Breath sounds equal bilaterally. No accessory muscle use. GASTROINTESTINAL: Abdomen soft, non-tender, nondistended. Bowel sounds present, but diminished all quadrants. MUSCULOSKELETAL: No cyanosis, or edema. bundle helper strength 5/5, upper extremity strength 5/5. PSYCHIATRIC: Pt A&Ox3, not evidencing overt signs of anxiety or depression. Frustrations noted in subjective portion of exam. Procedures 11/25- S/P flexible cystoscopy with replacement of kyle catheter Medications and IVs Current Medications Medications (Trade) Dose Ordered Sig/Shyam Route Start Time Stop Time Status Last Admin (NS Flush) 2 ml UNSCH PRN IV FLUSH 11/10/16 21:45 11/28/16 07:09 (NS Flush) 2 ml BID IV FLUSH 11/11/16 09:00 01/09/17 09:06 (Narcan Inj) 0.4 mg UNSCH PRN IV 11/10/16 21:45 (Xanax) 2 mg Q6HR PRN PO 11/11/16 02:00 01/08/17 22:17 (Vitamin C) 500 mg BID PO 11/11/16 09:00 01/09/17 09:07 (Lipitor) 40 mg DAILY PO 11/11/16 09:00 01/09/17 09:07 (Lioresal) 20 mg Q6HR PRN PO 11/11/16 02:00 01/09/17 13:42 (Peridex 0.12% Liq) 10 ml BID PRN SWISH-SPIT 11/11/16 02:00 (Lotrimin 1% Cream) 1 applic DAILY PRN TOPICAL 11/11/16 02:00 01/06/17 21:39 (Lasix) 40 mg BID PO 11/11/16 09:00 Hold 11/28/16 08:34 (Synthroid) 50 mcg DAILY@06 PO 11/11/16 06:00 01/09/17 06:10 (Oramorph Sr) 30 mg Q8H PO 11/11/16 02:00 01/09/17 10:04 (Oramorph Sr) 100 mg Q8H PO 11/11/16 02:00 01/09/17 10:03 (KCl) 20 meq DAILY PO 11/11/16 09:00 Hold 11/16/16 08:47 (Phenergan) 25 mg Q8HR PRN PO 11/11/16 02:00 12/29/16 13:52 (Pepcid) 20 mg DAILY PO 11/11/16 09:00 01/09/17 09:07 (Xarelto) 20 mg HS PO 11/11/16 21:00 01/08/17 21:48 (Mylicon Chew) 160 mg ACHS PRN CHEW 11/11/16 02:00 01/09/17 13:42 (Zofran Inj) 4 mg Q6HR PRN IV PUSH 11/11/16 03:15 01/08/17 18:11 (D50w (Vial) Inj) 25 ml UNSCH PRN IV PUSH 11/12/16 11:45 (Glucagon Inj) 1 mg UNSCH PRN OTHER 11/12/16 11:45 (Citroma Liq) 600 ml Q24H PRN PO 11/13/16 14:45 01/02/17 11:47 (Mycostatin Powder) 1 applic BID TOPICAL 11/13/16 21:00 01/09/17 09:08 (Tylenol) 650 mg Q4H PRN PO 11/18/16 17:30 01/06/17 23:17 (Santyl Oint) 1 applic DAILY TOPICAL 11/23/16 12:45 01/09/17 09:09 (Betadine 10% Oint) 1 applic DAILY TOPICAL 11/23/16 18:32 01/09/17 09:09 (NovoLOG INJ) 12 units TIDAC SQ 11/30/16 17:00 Hold 11/30/16 18:43 (Proamatine) 10 mg Q8HR PO 11/30/16 21:00 01/09/17 13:33 (Roxicodone) 30 mg Q4H PRN PO 12/06/16 12:30 01/09/17 00:47 (Wellbutrin Sr) 150 mg DAILY PO 12/10/16 16:15 01/09/17 09:07 (Lexapro) 20 mg HS PO 12/10/16 21:00 01/08/17 21:48 (Erin-Colace) 1 tab BID PO 12/10/16 21:00 01/09/17 09:10 (Ambien) 5 mg HS PRN PO 12/10/16 21:00 01/08/17 22:17 (Benadryl 2% Cream) 1 applic TID PRN TOPICAL 12/11/16 08:15 01/07/17 09:27 (Neurontin) 300 mg TID PO 12/12/16 18:00 01/09/17 13:33 (Ditropan) 5 mg Q8HR PO 12/14/16 14:00 01/09/17 13:32 (Detrol La) 4 mg HS PO 12/14/16 21:00 01/08/17 21:48 (Miralax) 17 gm DAILY PRN PO 12/19/16 09:45 12/26/16 10:17 (Desyrel) 200 mg HS@23 PO 12/21/16 23:00 01/08/17 21:48 (Lactulose Liq) 30 ml DAILY PRN PO 12/24/16 12:15 01/02/17 11:47 (Fleets Enema (Adult)) 133 ml UNSCH PRN RECTAL 12/26/16 11:45 12/26/16 12:49 (Levemir Inj) 32 units HS SQ 12/29/16 21:00 01/08/17 22:18 (Lotrimin 1% Cream) 1 applic Q12HR TOPICAL 01/01/17 09:00 01/09/17 09:08 (NovoLOG INJ) 3 units TIDAC SQ 01/02/17 12:00 01/07/17 17:21 (Lactinex) 1 tab TID PO 01/02/17 13:00 01/09/17 13:32 (Clear Eyes Redness Relief 0.012% Opth Soln) 1 drop Q6H PRN RIGHT EYE 01/02/17 13:45 01/07/17 09:27 (Magic Mouthwash Adult Liq) 10 ml QID SWISH-SWAL 01/02/17 18:00 01/16/17 17:59 01/09/17 13:33 Mupirocin 1 applic 1 applic BID EACH NARE 5/24/17 21:00 01/11/17 20:59 01/09/17 09:06 (INVanz INJ/NS Inj) 100 ml @ 200 mls/hr Q24H IV 01/05/17 15:00 01/15/17 14:59 01/09/17 15:18 (Heparin Central Flush) See Protocol DAILY IV FLUSH 01/06/17 09:00 01/09/17 09:06 (Heparin Central Flush) See Protocol UNSCH PRN IV FLUSH 01/05/17 18:30 (NS Flush) UNSCH PRN IV FLUSH 01/05/17 18:30 (NS Flush) See Protocol DAILY IV FLUSH 01/06/17 09:00 (NS Flush) See Protocol UNSCH PRN IV FLUSH 01/05/17 18:30 (Flonase Yonatan Spr) 2 spray DAILY EACH NARE 01/07/17 11:00 01/21/17 10:59 (Magic Mouthwash Adult Liq) 5 ml BIDAC SWISH-SWAL 01/07/17 16:00 01/08/17 16:46 (Dilaudid Pf Inj) 1.5 mg Q4H PRN IV PUSH 01/09/17 12:00 01/09/17 13:30 Urinary Catheter: Yes Assessment to: Continue Kyle insert reason: Prolonged Immobilization Date of Insertion: January 04, 2017 Vascular Central Line Catheter: Yes Line: PICC Side: Left Reason for Continuation medication administration. A/P Problem List: (1) UTI (urinary tract infection) ICD Code: N39.0 Status: Resolved (2) Chronic pain ICD Code: G89.29 Status: Chronic (3) Type 2 diabetes mellitus ICD Code: E11.9 Status: Chronic (4) Morbidly obese ICD Code: E66.01 Status: Chronic (5) Depression ICD Code: F32.9 Status: Chronic (6) Pressure ulcer ICD Code: L89.90 Status: Chronic (7) Sleep apnea ICD Code: G47.30 Status: Chronic (8) Hypothyroidism ICD Code: E03.9 Status: Chronic Assessment and Plan 25 y/o male with a history of paraplegia, neurogenic bladder, HTN, chronic reoccurring DVT, chronic pain, LAKA, sleep apnea, CHF was brought into the ED as a felipe act because he was threatening staff and using a taser. At time of admission he reported feeling fatigued and experienced nausea and vomiting almost every night for the past month. Furthermore, he complained of hematuria and was told last year at [facility] he had gastric ulcers, but feels he is still bleeding. Last EGD done at [facility] was 2012. He reported multiple wounds on his sacrum, back, right thigh and left hip, and has not had wound care in the 2 weeks preceding hospitalization. Patient also reported his Kyle catheter has not been replaced in 3 months and the last time required cystoscopy. Neurogenic Bladder Sepsis source likely urinary tract infection, ESBL Hypotension, resolved. - Blood pressure stable. Continue Midodrine - Status post Levaquin and Ertapenem for UTI. - Kyle catheter place by Dr. Meraz on 11/25. To be replaced by urology sometime this week. Continue Oxybutynin 5mg bid. - Status post urine cath leakage. Urology was reconsulted on 12/14. Patient declined catheter exchange at that time. No urological intervention at this time per urology. - Blood cultures NGTD. -Per note of 12/30/16 pt was agreeable to bedside catheter exchange, and was reported called. Awaiting their input/intervention. -01/01/17 Discussed with RN on 12/31/16 who was to page the on-call urology service. RN reported this morning speaking with Dr. Corral who deferred care back to Dr. Baez. Consult placed to Dr. Baez. Diabetes Mellitus: insulin requiring, reinforced and encourage. Noncompliance. Counseled. - Monitor Accu-Cheks, continue sliding scale insulin. -Improving. On Levemir 26 units subq in am and 32 units subq qhs. Adjust as needed - Continue to monitor and adjust the regimen as needed. Chronic pain. Home medications baclofen, morphine, oxycodone. Continue Oramorph. -Pain medication regimen that was initiated on 12/31/16, on 01/07/17, was resumed 01/09/17. Sleep apnea Insomnia - CPAP at night - Continue home medications Ambien PRN & Trazadone 200 qHS. BIPAP at night. Morbid obesity: Outpatient general surgery referral needed for possible surgical interventions Chronic pressure ulcers: Wound care team following. Patient turning himself. Anxiety and depression: no homicidal or suicidal ideations - Was evaluated by psych in the ER, Felipe acted lifted, did not meet inpatient psychiatric and admission criteria. - Patient has long history of being on psychiatric medication, currently on Lexapro. Previously was on Knobel and did not do well with mood on this. - Psychiatry follow-up appreciated. Hyperlipidemia: Continue Lipitor. Hypothyroidism: Continue levothyroxine. Substance use: tox screen on admission significant for opiates, benzos, cannabinoids. Constipation: Laxatives available as needed. will add fleet enema as needed as well. Nausea and vomiting. Zofran as needed. Repeat CBC, BMP and magnesium stable. We'll continue to closely monitor DVT prophylaxis: On Xarelto DNR status Palliative care following. case discussed with pt, RN, and Dr. Staton. Discharge Planning difficult discharge. no accepting facility yet. 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 January 09, 2017 16:38
[2017-01-09 20:00] VITALS: BP 114/59; PULSE 86; RESP 20; TEMP 97; O2SAT 92
[2017-01-09 20:27] VITALS: O2SAT 92
[2017-01-09] MEDS: RIVAROXABAN 20 MG TAB PO SCH (21:21)
[2017-01-09] MEDS: traZODone HCL 100 MG TAB PO SCH (21:21)
[2017-01-09] MEDS: TOLTERODINE TARTRATE 4 MG CAP LA PO SCH (21:21)
[2017-01-09] MEDS: ESCITALOPRAM OXALATE 20 MG TAB PO SCH (21:21)
[2017-01-09] MEDS: ALPRAZolam 1 MG TAB PO PRN (21:40)
[2017-01-09] MEDS: ZOLPIDEM TARTRATE 5 MG TAB PO PRN (21:40)
[2017-01-10] VITALS: BP 115/54; PULSE 81; RESP 18; TEMP 96.9; O2SAT 93
[2017-01-10] MEDS: MORPHINE SULFATE 30 MG CONTROLLED RELEASE TAB PO SCH ×3 (06:01→21:50)
[2017-01-10] MEDS: INSULIN ASPART SUPPLEMENTAL SCALE SQ SCH ×4 (06:02→21:53)
[2017-01-10] MEDS: MIDODRINE 5 MG TAB PO SCH ×3 (06:02→21:50)
[2017-01-10] MEDS: OXYBUTYNIN CHLORIDE 5 MG TAB PO SCH ×3 (06:02→21:50)
[2017-01-10] MEDS: LEVOTHYROXINE SODIUM 50 MCG TAB PO SCH (06:02)
[2017-01-10] MEDS: MORPHINE SULFATE 100 MG CONTROLLED RELEASE TAB PO SCH ×3 (06:02→21:50)
[2017-01-10] MEDS: INSULIN DETEMIR 100 UNITS/ML VIAL SQ SCH ×2 (06:02→21:54)
[2017-01-10] MEDS: NYSTAT/DIPHENHY/LIDO MOUTHWASH (Adult) 120ML SWISH-SWAL SCH ×6 (06:03→21:52)
[2017-01-10 06:10] LABS: HEMATOCRIT 29.4 % (39.0-51.0); MEAN CELL VOLUME 75.8 FL (80.0-100.0); MEAN CORPUSCULAR HEMOGLOBIN 23.3 PG (27.0-34.0); MEAN CORPUSCULAR HGB CONC 30.7 % (32.0-36.0); PLATELET COUNT 434 TH/MM3 (150-450); RED BLOOD COUNT 3.87 MIL/MM3 (4.50-5.90); RED CELL DISTRIBUTION WIDTH 22.2 % (11.6-17.2); REVIEW FLAG FINAL; WHITE BLOOD COUNT 11.1 TH/MM3 (4.0-11.0)
[2017-01-10 06:22] LABS: BICARBONATE 32.9 MEQ/L (21.0-32.0); POTASSIUM 4.9 MEQ/L (3.5-5.1)
[2017-01-10 08:00] VITALS: BP 106/52; PULSE 77; RESP 16; TEMP 96.6; O2SAT 91
[2017-01-10] MEDS: INSULIN ASPART 1,000 UNITS/10 ML VIAL SQ SCH ×3 (08:00→17:00)
[2017-01-10] MEDS: FLUTICASONE PROPIONATE 50 MCG/ACT 16 GM NASAL SPRAY EACH NARE SCH (09:00)
[2017-01-10] MEDS: SODIUM CHLORIDE 0.9% FLUSH 10 ML FLUSH IV FLUSH SCH ×3 (09:00→21:51)
[2017-01-10] MEDS: ASCORBIC ACID 500 MG TAB PO SCH ×2 (09:37→21:51)
[2017-01-10] MEDS: buPROPion HCL 150 MG SUSTAINED RELEASE TAB PO SCH (09:37)
[2017-01-10] MEDS: GABAPENTIN 300 MG CAP PO SCH ×3 (09:37→17:15)
[2017-01-10] MEDS: LACTOBACILLUS ACIDOPHILUS TAB PO SCH ×3 (09:37→17:15)
[2017-01-10] MEDS: DOCUSATE SODIUM 50 MG/SENNA 8.6 MG TAB PO SCH ×2 (09:37→21:49)
[2017-01-10] MEDS: FAMOTIDINE 20 MG TAB PO SCH (09:37)
[2017-01-10] MEDS: ATORVASTATIN 40 MG TAB PO SCH (09:37)
[2017-01-10] MEDS: MUPIROCIN 2% OINT 1 APPLIC/GM SYR EACH NARE SCH ×2 (09:38→21:51)
[2017-01-10] MEDS: CLOTRIMAZOLE 1% CREAM 15 GM TOPICAL SCH ×2 (09:39→21:52)
[2017-01-10] MEDS: NYSTATIN 100,000 U/GM PWD 15 GM BTL TOPICAL SCH ×2 (09:39→21:52)
[2017-01-10] MEDS: POVIDONE IODINE 10% OINT 30 GM TUBE TOPICAL SCH (09:39)
[2017-01-10] MEDS: COLLAGENASE OINT 30 GM TUBE TOPICAL SCH (09:40)
--- NOTE | 2017-01-10 11:37 | HHI.PR ---
Subjective Remarks Follow up for paraplegia, chronic pain, neurogenic bladder and severe sepsis. Pt was sleeping at time of visit. However, he did rouse and offered no complaints or concerns. Spoke with staff about wedge pillow and charge nurse suggested using regular pillows to meet pt's needs. Discussed pt with pt's RN and she reported no changes or issues. Pt denies cough, SOB/ dyspnea, chest pain, palpitations, headaches, dizziness, fevers, chills, n/v/d, bloody urine or stool. As above, no other issues noted or reported. Objective Vitals Vital Signs Date Time Temp Pulse Resp B/P Pulse Ox O2 Delivery O2 Flow Rate FiO2 01/10/17 08:00 96.6 77 16 106/52 91 01/10/17 00:28 16 01/10/17 00:00 96.9 81 18 115/54 93 01/09/17 21:11 Room Air 01/09/17 20:27 92 21 01/09/17 20:00 97.0 86 20 114/59 92 01/09/17 16:00 96.1 98 22 135/64 94 I/O 01/09/17 01/09/17 01/09/17 01/10/17 01/10/17 01/10/17 06:59 14:59 22:59 06:59 14:59 22:59 Intake Total 320 ml 2960 ml 480 ml 480 ml Output Total 1750 ml 2800 ml 2100 ml 1600 ml Balance -1430 ml 160 ml -1620 ml -1120 ml Intake Oral 320 ml 2960 ml 480 ml 480 ml IV Total 0 ml 0 ml 0 ml 0 ml Output Urine Total 1750 ml 2800 ml 2100 ml 1600 ml # Bowel Movements 0 0 0 0 Result Diagram: 01/10/17 0555 01/10/17 0555 Imaging No new imaging ordered, pending, or resulted within the past 24 hours. Objective Remarks GENERAL: Pt laying abed-sleeping yet awakened, morbidly obese, upper body shirtless, lower portion covered with sheet. SKIN: Warm and dry. Right leg amputated, catheter noted to be exiting lower portion of his body. HEAD: Normocephalic. EYES: No scleral icterus. No injection or drainage. NECK: Supple, trachea midline. No lymphadenopathy. CARDIOVASCULAR: Regular rate and rhythm without murmurs, gallops, or rubs. RESPIRATORY: Breath sounds equal bilaterally. No accessory muscle use. GASTROINTESTINAL: Abdomen soft, non-tender, nondistended. Bowel sounds present, but diminished all quadrants. MUSCULOSKELETAL: No cyanosis, or edema. nursing home manager strength 5/5, upper extremity strength 5/5. PSYCHIATRIC: Pt A&Ox3, not evidencing overt signs of anxiety or depression. Frustrations noted in subjective portion of exam. Procedures 11/25- S/P flexible cystoscopy with replacement of kyle catheter Medications and IVs Current Medications Medications (Trade) Dose Ordered Sig/Shyam Route Start Time Stop Time Status Last Admin (NS Flush) 2 ml UNSCH PRN IV FLUSH 11/10/16 21:45 11/28/16 07:09 (NS Flush) 2 ml BID IV FLUSH 11/11/16 09:00 01/10/17 09:38 (Narcan Inj) 0.4 mg UNSCH PRN IV 11/10/16 21:45 (Xanax) 2 mg Q6HR PRN PO 11/11/16 02:00 01/09/17 21:40 (Vitamin C) 500 mg BID PO 11/11/16 09:00 01/10/17 09:37 (Lipitor) 40 mg DAILY PO 11/11/16 09:00 01/10/17 09:37 (Lioresal) 20 mg Q6HR PRN PO 11/11/16 02:00 01/09/17 21:40 (Peridex 0.12% Liq) 10 ml BID PRN SWISH-SPIT 11/11/16 02:00 (Lotrimin 1% Cream) 1 applic DAILY PRN TOPICAL 11/11/16 02:00 01/06/17 21:39 (Lasix) 40 mg BID PO 11/11/16 09:00 Hold 11/28/16 08:34 (Synthroid) 50 mcg DAILY@06 PO 11/11/16 06:00 01/10/17 06:02 (KCl) 20 meq DAILY PO 11/11/16 09:00 Hold 11/16/16 08:47 (Phenergan) 25 mg Q8HR PRN PO 11/11/16 02:00 12/29/16 13:52 (Pepcid) 20 mg DAILY PO 11/11/16 09:00 01/10/17 09:37 (Xarelto) 20 mg HS PO 11/11/16 21:00 01/09/17 21:21 (Mylicon Chew) 160 mg ACHS PRN CHEW 11/11/16 02:00 01/09/17 13:42 (Zofran Inj) 4 mg Q6HR PRN IV PUSH 11/11/16 03:15 01/08/17 18:11 (D50w (Vial) Inj) 25 ml UNSCH PRN IV PUSH 11/12/16 11:45 (Glucagon Inj) 1 mg UNSCH PRN OTHER 11/12/16 11:45 (Citroma Liq) 600 ml Q24H PRN PO 11/13/16 14:45 01/02/17 11:47 (Mycostatin Powder) 1 applic BID TOPICAL 11/13/16 21:00 01/10/17 09:39 (Tylenol) 650 mg Q4H PRN PO 11/18/16 17:30 01/06/17 23:17 (Santyl Oint) 1 applic DAILY TOPICAL 11/23/16 12:45 01/10/17 09:40 (Betadine 10% Oint) 1 applic DAILY TOPICAL 11/23/16 18:32 01/10/17 09:39 (NovoLOG INJ) 12 units TIDAC SQ 11/30/16 17:00 Hold 11/30/16 18:43 (Proamatine) 10 mg Q8HR PO 11/30/16 21:00 01/10/17 06:02 (Roxicodone) 30 mg Q4H PRN PO 12/06/16 12:30 01/09/17 23:00 (Wellbutrin Sr) 150 mg DAILY PO 12/10/16 16:15 01/10/17 09:37 (Lexapro) 20 mg HS PO 12/10/16 21:00 01/09/17 21:21 (Erin-Colace) 1 tab BID PO 12/10/16 21:00 01/10/17 09:37 (Ambien) 5 mg HS PRN PO 12/10/16 21:00 01/09/17 21:40 (Benadryl 2% Cream) 1 applic TID PRN TOPICAL 12/11/16 08:15 01/07/17 09:27 (Neurontin) 300 mg TID PO 12/12/16 18:00 01/10/17 09:37 (Ditropan) 5 mg Q8HR PO 12/14/16 14:00 01/10/17 06:02 (Detrol La) 4 mg HS PO 12/14/16 21:00 01/09/17 21:21 (Miralax) 17 gm DAILY PRN PO 12/19/16 09:45 12/26/16 10:17 (Desyrel) 200 mg HS@23 PO 12/21/16 23:00 01/09/17 21:21 (Lactulose Liq) 30 ml DAILY PRN PO 12/24/16 12:15 01/02/17 11:47 (Fleets Enema (Adult)) 133 ml UNSCH PRN RECTAL 12/26/16 11:45 12/26/16 12:49 (Levemir Inj) 32 units HS SQ 12/29/16 21:00 01/09/17 21:25 (Lotrimin 1% Cream) 1 applic Q12HR TOPICAL 01/01/17 09:00 01/10/17 09:39 (NovoLOG INJ) 3 units TIDAC SQ 01/02/17 12:00 01/07/17 17:21 (Lactinex) 1 tab TID PO 01/02/17 13:00 01/10/17 09:37 (Clear Eyes Redness Relief 0.012% Opth Soln) 1 drop Q6H PRN RIGHT EYE 01/02/17 13:45 01/07/17 09:27 (Magic Mouthwash Adult Liq) 10 ml QID SWISH-SWAL 01/02/17 18:00 01/16/17 17:59 01/10/17 09:37 Mupirocin 1 applic 1 applic BID EACH NARE 01/04/17 21:00 01/11/17 20:59 01/10/17 09:38 (INVanz INJ/NS Inj) 100 ml @ 200 mls/hr Q24H IV 01/05/17 15:00 01/15/17 14:59 01/09/17 15:18 (Heparin Central Flush) See Protocol DAILY IV FLUSH 01/06/17 09:00 01/10/17 09:36 (Heparin Central Flush) See Protocol UNSCH PRN IV FLUSH 01/05/17 18:30 (NS Flush) UNSCH PRN IV FLUSH 01/05/17 18:30 (NS Flush) See Protocol DAILY IV FLUSH 01/06/17 09:00 (NS Flush) See Protocol UNSCH PRN IV FLUSH 01/05/17 18:30 (Flonase Yonatan Spr) 2 spray DAILY EACH NARE 01/07/17 11:00 01/21/17 10:59 (Magic Mouthwash Adult Liq) 5 ml BIDAC SWISH-SWAL 01/07/17 16:00 01/10/17 06:03 (Dilaudid Pf Inj) 1.5 mg Q4H PRN IV PUSH 01/09/17 12:00 01/09/17 13:30 (Oramorph Sr) 30 mg Q8H PO 01/10/17 06:00 01/10/17 06:01 (Oramorph Sr) 100 mg Q8H PO 01/10/17 06:00 01/10/17 06:02 Urinary Catheter: Yes Assessment to: Continue Kyle insert reason: Prolonged Immobilization Date of Insertion: January 04, 2017 Vascular Central Line Catheter: Yes Assessment to: Continue Line: PICC Side: Left Reason for Continuation Medication administration. A/P Problem List: (1) UTI (urinary tract infection) ICD Code: N39.0 Status: Resolved (2) Chronic pain ICD Code: G89.29 Status: Chronic (3) Type 2 diabetes mellitus ICD Code: E11.9 Status: Chronic (4) Morbidly obese ICD Code: E66.01 Status: Chronic (5) Depression ICD Code: F32.9 Status: Chronic (6) Pressure ulcer ICD Code: L89.90 Status: Chronic (7) Sleep apnea ICD Code: G47.30 Status: Chronic (8) Hypothyroidism ICD Code: E03.9 Status: Chronic (9) Acute hyperkalemia ICD Code: E87.5 Status: Acute Assessment and Plan 25 y/o male with a history of paraplegia, neurogenic bladder, HTN, chronic reoccurring DVT, chronic pain, LAKA, sleep apnea, CHF was brought into the ED as a felipe act because he was threatening staff and using a taser. At time of admission he reported feeling fatigued and experienced nausea and vomiting almost every night for the past month. Furthermore, he complained of hematuria and was told last year at [facility] he had gastric ulcers, but feels he is still bleeding. Last EGD done at [place] was 2012. He reported multiple wounds on his sacrum, back, right thigh and left hip, and has not had wound care in the 2 weeks preceding hospitalization. Patient also reported his Kyle catheter has not been replaced in 3 months and the last time required cystoscopy. Neurogenic Bladder Sepsis source likely urinary tract infection, ESBL Hypotension, resolved. - Blood pressure stable. Continue Midodrine - Status post Levaquin and Ertapenem for UTI. - Kyle catheter place by Dr. Meraz on 11/25. To be replaced by urology sometime this week. Continue Oxybutynin 5mg bid. - Status post urine cath leakage. Urology was reconsulted on 12/14. Patient declined catheter exchange at that time. No urological intervention at this time per urology. - Blood cultures NGTD. -Per note of 12/30/16 pt was agreeable to bedside catheter exchange, and was reported called. Awaiting their input/intervention. -01/01/17 Discussed with RN on 12/31/16 who was to page the on-call urology service. RN reported this morning speaking with Dr. Corral who deferred care back to Dr. Baez. Consult placed to Dr. Baez. Diabetes Mellitus: insulin requiring, reinforced and encourage. Noncompliance. Counseled. - Monitor Accu-Cheks, continue sliding scale insulin. -Improving. On Levemir 26 units subq in am and 32 units subq qhs. Adjust as needed - Continue to monitor and adjust the regimen as needed. Chronic pain. Home medications baclofen, morphine, oxycodone. Continue Oramorph. -Pain medication regimen that was initiated on 12/31/16, on 01/07/17, was resumed 01/09/17. Sleep apnea Insomnia - CPAP at night - Continue home medications Ambien PRN & Trazadone 200 qHS. BIPAP at night. Morbid obesity: Outpatient general surgery referral needed for possible surgical interventions Chronic pressure ulcers: Wound care team following. Patient turning himself. Anxiety and depression: no homicidal or suicidal ideations - Was evaluated by psych in the ER, Felipe acted lifted, did not meet inpatient psychiatric and admission criteria. - Patient has long history of being on psychiatric medication, currently on Lexapro. Previously was on [place] and did not do well with mood on this. - Psychiatry follow-up appreciated. Hyperlipidemia: Continue Lipitor. Hypothyroidism: Continue levothyroxine. Substance use: tox screen on admission significant for opiates, benzos, cannabinoids. Constipation: Laxatives available as needed. will add fleet enema as needed as well. Nausea and vomiting. Zofran as needed. Repeat CBC, BMP and magnesium stable. We'll continue to closely monitor Acute hyperkalemia -Noted on labs on 01/09/17 with return to upper normal noted on repeat lab of and downward trend on the morning of 01/09/17, DVT prophylaxis: On Xarelto DNR status Palliative care following. case discussed with pt, RN, and Dr. Cade. Discharge Planning difficult discharge. no accepting facility yet. 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 January 10, 2017 11:37
[2017-01-10 12:00] VITALS: BP 105/53; PULSE 72; RESP 16; TEMP 96.7; O2SAT 91
[2017-01-10] MEDS: HYDROmorphone HCL PF 1 MG/ML VIAL IV PUSH PRN (13:37)
[2017-01-10 16:00] VITALS: BP 135/61; PULSE 94; RESP 16; TEMP 95.4; O2SAT 96
[2017-01-10] MEDS: ERTAPENEM INJ 1,000 MG in SODIUM CHLORIDE 0.9% INJ 100 ML IV SCH (16:04)
[2017-01-10] MEDS: BACLOFEN 20 MG TAB PO PRN (17:13)
[2017-01-10 20:00] VITALS: BP 133/72; PULSE 88; RESP 20; TEMP 97.8; O2SAT 95
[2017-01-10] MEDS: RIVAROXABAN 20 MG TAB PO SCH (21:50)
[2017-01-10] MEDS: TOLTERODINE TARTRATE 4 MG CAP LA PO SCH (21:50)
[2017-01-10] MEDS: traZODone HCL 100 MG TAB PO SCH (21:50)
[2017-01-10] MEDS: ALPRAZolam 1 MG TAB PO PRN (21:51)
[2017-01-10] MEDS: ESCITALOPRAM OXALATE 20 MG TAB PO SCH (21:51)
[2017-01-11] MEDS: LEVOTHYROXINE SODIUM 50 MCG TAB PO SCH (06:12)
[2017-01-11] MEDS: MORPHINE SULFATE 100 MG CONTROLLED RELEASE TAB PO SCH ×3 (06:13→22:10)
[2017-01-11] MEDS: NYSTAT/DIPHENHY/LIDO MOUTHWASH (Adult) 120ML SWISH-SWAL SCH ×6 (06:13→21:00)
[2017-01-11] MEDS: INSULIN ASPART SUPPLEMENTAL SCALE SQ SCH ×4 (06:13→21:00)
[2017-01-11] MEDS: MORPHINE SULFATE 30 MG CONTROLLED RELEASE TAB PO SCH ×3 (06:13→22:09)
[2017-01-11] MEDS: OXYBUTYNIN CHLORIDE 5 MG TAB PO SCH ×3 (06:13→22:09)
[2017-01-11] MEDS: MIDODRINE 5 MG TAB PO SCH ×3 (06:13→22:38)
[2017-01-11] MEDS: INSULIN DETEMIR 100 UNITS/ML VIAL SQ SCH ×2 (06:14→22:07)
[2017-01-11] MEDS: INSULIN ASPART 1,000 UNITS/10 ML VIAL SQ SCH ×3 (08:00→16:17)
[2017-01-11] MEDS: MUPIROCIN 2% OINT 1 APPLIC/GM SYR EACH NARE SCH (08:13)
[2017-01-11] MEDS: GABAPENTIN 300 MG CAP PO SCH ×3 (08:14→17:27)
[2017-01-11] MEDS: SODIUM CHLORIDE 0.9% FLUSH 10 ML FLUSH IV FLUSH SCH ×3 (08:14→22:14)
[2017-01-11] MEDS: ATORVASTATIN 40 MG TAB PO SCH (08:14)
[2017-01-11] MEDS: FLUTICASONE PROPIONATE 50 MCG/ACT 16 GM NASAL SPRAY EACH NARE SCH (08:14)
[2017-01-11] MEDS: LACTOBACILLUS ACIDOPHILUS TAB PO SCH ×3 (08:14→17:27)
[2017-01-11] MEDS: FAMOTIDINE 20 MG TAB PO SCH (08:14)
[2017-01-11] MEDS: NYSTATIN 100,000 U/GM PWD 15 GM BTL TOPICAL SCH ×2 (08:15→21:00)
[2017-01-11] MEDS: buPROPion HCL 150 MG SUSTAINED RELEASE TAB PO SCH (08:15)
[2017-01-11] MEDS: POVIDONE IODINE 10% OINT 30 GM TUBE TOPICAL SCH (08:15)
[2017-01-11] MEDS: COLLAGENASE OINT 30 GM TUBE TOPICAL SCH (08:15)
[2017-01-11] MEDS: CLOTRIMAZOLE 1% CREAM 15 GM TOPICAL SCH ×2 (08:15→21:00)
[2017-01-11] MEDS: DOCUSATE SODIUM 50 MG/SENNA 8.6 MG TAB PO SCH ×2 (08:15→22:10)
[2017-01-11] MEDS: ASCORBIC ACID 500 MG TAB PO SCH ×2 (08:15→22:09)
[2017-01-11 13:30] VITALS: O2SAT 95
--- NOTE | 2017-01-11 14:15 | HHI.PR ---
Subjective Remarks Follow up for paraplegia, chronic pain, neurogenic bladder and severe sepsis. Pt was sleeping at time of visit. However, he did rouse. Reported being "tired' and his Bipap alarm "had gone off all night and kept me awake." Pt reported respiratory recently "changed some settings and the mask isn't sitting on my face." Discussed pt with pt's RN and she reported no changes or issues. Pt denies cough, SOB/ dyspnea, chest pain, palpitations, headaches, dizziness, fevers, chills, n/v/d, bloody urine or stool. As above, no other issues noted or reported. Objective Vitals Vital Signs Date Time Temp Pulse Resp B/P Pulse Ox O2 Delivery O2 Flow Rate FiO2 01/11/17 08:15 Room Air 01/11/17 01:30 Full Face Mask 21.0 01/10/17 23:15 18 01/10/17 23:15 18 01/10/17 21:46 Room Air 01/10/17 20:00 97.8 88 20 133/72 95 01/10/17 18:43 cpap 01/10/17 16:00 95.4 94 16 135/61 96 I/O 01/10/17 01/10/17 01/10/17 01/11/17 01/11/17 01/11/17 07:00 15:00 23:00 07:00 15:00 23:00 Intake Total 480 ml 340 ml 720 ml 480 ml Output Total 1600 ml 1700 ml 2725 ml 1175 ml Balance -1120 ml -1360 ml -2005 ml -695 ml Intake Oral 480 ml 340 ml 720 ml 480 ml IV Total 0 ml 0 ml 0 ml Output Urine Total 1600 ml 1700 ml 2725 ml 1175 ml # Bowel Movements 0 0 0 0 Result Diagram: 01/10/17 0555 01/10/17 0555 Imaging No new images ordered, pending or resulted within the past 24 hours. Objective Remarks GENERAL: Pt laying abed-sleeping yet awakened, morbidly obese, upper body shirtless, lower portion covered with sheet. SKIN: Warm and dry. Right leg amputated, catheter noted to be exiting lower portion of his body. HEAD: Normocephalic. EYES: No scleral icterus. No injection or drainage. NECK: Supple, trachea midline. No lymphadenopathy. CARDIOVASCULAR: Regular rate and rhythm without murmurs, gallops, or rubs. RESPIRATORY: Breath sounds equal bilaterally. No accessory muscle use. GASTROINTESTINAL: Abdomen soft, non-tender, nondistended. Bowel sounds present, but diminished all quadrants. MUSCULOSKELETAL: No cyanosis, or edema. 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 PSYCHIATRIC: Pt A&Ox3, not evidencing overt signs of anxiety or depression. Frustrations noted in subjective portion of exam regarding sleep and Bipap. Procedures 11/25- S/P flexible cystoscopy with replacement of kyle catheter Medications and IVs Current Medications Medications (Trade) Dose Ordered Sig/Shyam Route Start Time Stop Time Status Last Admin (NS Flush) 2 ml UNSCH PRN IV FLUSH 11/10/16 21:45 11/28/16 07:09 (NS Flush) 2 ml BID IV FLUSH 11/11/16 09:00 01/10/17 21:51 (Narcan Inj) 0.4 mg UNSCH PRN IV 11/10/16 21:45 (Xanax) 2 mg Q6HR PRN PO 11/11/16 02:00 01/10/17 21:51 (Vitamin C) 500 mg BID PO 11/11/16 09:00 01/10/17 21:51 (Lipitor) 40 mg DAILY PO 11/11/16 09:00 01/10/17 09:37 (Lioresal) 20 mg Q6HR PRN PO 11/11/16 02:00 01/10/17 17:13 (Peridex 0.12% Liq) 10 ml BID PRN SWISH-SPIT 11/11/16 02:00 (Lotrimin 1% Cream) 1 applic DAILY PRN TOPICAL 11/11/16 02:00 01/06/17 21:39 (Lasix) 40 mg BID PO 11/11/16 09:00 Hold 11/28/16 08:34 (Synthroid) 50 mcg DAILY@06 PO 11/11/16 06:00 01/11/17 06:12 (KCl) 20 meq DAILY PO 11/11/16 09:00 Hold 11/16/16 08:47 (Phenergan) 25 mg Q8HR PRN PO 11/11/16 02:00 12/29/16 13:52 (Pepcid) 20 mg DAILY PO 11/11/16 09:00 01/10/17 09:37 (Xarelto) 20 mg HS PO 11/11/16 21:00 01/10/17 21:50 (Mylicon Chew) 160 mg ACHS PRN CHEW 11/11/16 02:00 01/09/17 13:42 (Zofran Inj) 4 mg Q6HR PRN IV PUSH 11/11/16 03:15 01/08/17 18:11 (D50w (Vial) Inj) 25 ml UNSCH PRN IV PUSH 11/12/16 11:45 (Glucagon Inj) 1 mg UNSCH PRN OTHER 11/12/16 11:45 (Citroma Liq) 600 ml Q24H PRN PO 11/13/16 14:45 01/02/17 11:47 (Mycostatin Powder) 1 applic BID TOPICAL 11/13/16 21:00 01/10/17 21:52 (Tylenol) 650 mg Q4H PRN PO 11/18/16 17:30 01/06/17 23:17 (Santyl Oint) 1 applic DAILY TOPICAL 11/23/16 12:45 01/10/17 09:40 (Betadine 10% Oint) 1 applic DAILY TOPICAL 11/23/16 18:32 01/10/17 09:39 (NovoLOG INJ) 12 units TIDAC SQ 11/30/16 17:00 Hold 11/30/16 18:43 (Proamatine) 10 mg Q8HR PO 11/30/16 21:00 01/11/17 06:13 (Roxicodone) 30 mg Q4H PRN PO 12/06/16 12:30 01/10/17 17:13 (Wellbutrin Sr) 150 mg DAILY PO 12/10/16 16:15 01/10/17 09:37 (Lexapro) 20 mg HS PO 12/10/16 21:00 01/10/17 21:51 (Erin-Colace) 1 tab BID PO 12/10/16 21:00 01/10/17 21:49 (Ambien) 5 mg HS PRN PO 12/10/16 21:00 01/09/17 21:40 (Benadryl 2% Cream) 1 applic TID PRN TOPICAL 12/11/16 08:15 01/07/17 09:27 (Neurontin) 300 mg TID PO 12/12/16 18:00 01/10/17 17:15 (Ditropan) 5 mg Q8HR PO 12/14/16 14:00 01/11/17 06:13 (Detrol La) 4 mg HS PO 12/14/16 21:00 01/10/17 21:50 (Miralax) 17 gm DAILY PRN PO 12/19/16 09:45 12/26/16 10:17 (Desyrel) 200 mg HS@23 PO 12/21/16 23:00 01/10/17 21:50 (Lactulose Liq) 30 ml DAILY PRN PO 12/24/16 12:15 01/02/17 11:47 (Fleets Enema (Adult)) 133 ml UNSCH PRN RECTAL 12/26/16 11:45 12/26/16 12:49 (Levemir Inj) 32 units HS SQ 12/29/16 21:00 01/10/17 21:54 (Lotrimin 1% Cream) 1 applic Q12HR TOPICAL 01/01/17 09:00 01/10/17 21:52 (NovoLOG INJ) 3 units TIDAC SQ 01/02/17 12:00 01/07/17 17:21 (Lactinex) 1 tab TID PO 01/02/17 13:00 01/10/17 17:15 (Clear Eyes Redness Relief 0.012% Opth Soln) 1 drop Q6H PRN RIGHT EYE 01/02/17 13:45 01/07/17 09:27 (Magic Mouthwash Adult Liq) 10 ml QID SWISH-SWAL 01/02/17 18:00 01/16/17 17:59 01/10/17 21:52 Mupirocin 1 applic 1 applic BID EACH NARE 01/04/17 21:00 01/11/17 20:59 01/10/17 21:51 (INVanz INJ/NS Inj) 100 ml @ 200 mls/hr Q24H IV 01/05/17 15:00 01/15/17 14:59 01/10/17 16:04 (Heparin Central Flush) See Protocol DAILY IV FLUSH 01/06/17 09:00 01/10/17 09:36 (Heparin Central Flush) See Protocol UNSCH PRN IV FLUSH 01/05/17 18:30 (NS Flush) UNSCH PRN IV FLUSH 01/05/17 18:30 (NS Flush) See Protocol DAILY IV FLUSH 01/06/17 09:00 (NS Flush) See Protocol UNSCH PRN IV FLUSH 01/05/17 18:30 (Flonase Yonatan Spr) 2 spray DAILY EACH NARE 01/07/17 11:00 01/21/17 10:59 (Magic Mouthwash Adult Liq) 5 ml BIDAC SWISH-SWAL 01/07/17 16:00 01/10/17 16:04 (Dilaudid Pf Inj) 1.5 mg Q4H PRN IV PUSH 01/09/17 12:00 01/10/17 13:37 (Oramorph Sr) 30 mg Q8H PO 01/10/17 06:00 01/11/17 06:13 (Oramorph Sr) 100 mg Q8H PO 01/10/17 06:00 01/11/17 06:13 Urinary Catheter: Yes Assessment to: Continue Kyle insert reason: Prolonged Immobilization Date of Insertion: January 04, 2017 Vascular Central Line Catheter: Yes Assessment to: Continue Line: PICC Side: Left Reason for Continuation medication administration A/P Problem List: (1) UTI (urinary tract infection) ICD Code: N39.0 Status: Resolved (2) Chronic pain ICD Code: G89.29 Status: Chronic (3) Type 2 diabetes mellitus ICD Code: E11.9 Status: Chronic (4) Morbidly obese ICD Code: E66.01 Status: Chronic (5) Depression ICD Code: F32.9 Status: Chronic (6) Pressure ulcer ICD Code: L89.90 Status: Chronic (7) Sleep apnea ICD Code: G47.30 Status: Chronic (8) Hypothyroidism ICD Code: E03.9 Status: Chronic (9) Acute hyperkalemia ICD Code: E87.5 Status: Acute Assessment and Plan 25 y/o male with a history of paraplegia, neurogenic bladder, HTN, chronic reoccurring DVT, chronic pain, LAKA, sleep apnea, CHF was brought into the ED as a felipe act because he was threatening staff and using a taser. At time of admission he reported feeling fatigued and experienced nausea and vomiting almost every night for the past month. Furthermore, he complained of hematuria and was told last year at [facility] he had gastric ulcers, but feels he is still bleeding. Last EGD done at [place] was 2012. He reported multiple wounds on his sacrum, back, right thigh and left hip, and has not had wound care in the 2 weeks preceding hospitalization. Patient also reported his Kyle catheter has not been replaced in 3 months and the last time required cystoscopy. Neurogenic Bladder Sepsis source likely urinary tract infection, ESBL Hypotension, resolved. - Blood pressure stable. Continue Midodrine - Status post Levaquin and Ertapenem for UTI. - Kyle catheter place by Dr. Meraz on 11/25. To be replaced by urology sometime this week. Continue Oxybutynin 5mg bid. - Status post urine cath leakage. Urology was reconsulted on 12/14. Patient declined catheter exchange at that time. No urological intervention at this time per urology. - Blood cultures NGTD. -Per note of 12/30/16 pt was agreeable to bedside catheter exchange, and was reported called. Awaiting their input/intervention. -01/01/17 Discussed with RN on 12/31/16 who was to page the on-call urology service. RN reported this morning speaking with Dr. Corral who deferred care back to Dr. Baez. Consult placed to Dr. Baez. Diabetes Mellitus: insulin requiring, reinforced and encourage. Noncompliance. Counseled. - Monitor Accu-Cheks, continue sliding scale insulin. -Improving. On Levemir 26 units subq in am and 32 units subq qhs. Adjust as needed - Continue to monitor and adjust the regimen as needed. -BG levels are improving as noted by bedside fingersticks (01/11/17) Chronic pain. Home medications baclofen, morphine, oxycodone. Continue Oramorph. -Pain medication regimen that was initiated on 12/31/16, on 01/07/17, was resumed 01/09/17. Sleep apnea Insomnia - CPAP at night - Continue home medications Ambien PRN & Trazadone 200 qHS. BIPAP at night. Morbid obesity: Outpatient general surgery referral needed for possible surgical interventions Chronic pressure ulcers: Wound care team following. Patient turning himself. Anxiety and depression: no homicidal or suicidal ideations - Was evaluated by psych in the ER, Felipe acted lifted, did not meet inpatient psychiatric and admission criteria. - Patient has long history of being on psychiatric medication, currently on Lexapro. Previously was on [place] and did not do well with mood on this. - Psychiatry follow-up appreciated. Hyperlipidemia: Continue Lipitor. Hypothyroidism: Continue levothyroxine. Substance use: tox screen on admission significant for opiates, benzos, cannabinoids. Constipation: Laxatives available as needed. will add fleet enema as needed as well. Nausea and vomiting. Zofran as needed. Repeat CBC, BMP and magnesium stable. We'll continue to closely monitor Acute hyperkalemia -Noted on labs on 01/09/17 with return to upper normal noted on repeat lab of and downward trend on the morning of 01/09/17, DVT prophylaxis: On Xarelto DNR status Palliative care following. case discussed with pt, RN, and Dr. Cade. Discharge Planning difficult discharge. no accepting facility yet. 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 January 11, 2017 14:15
[2017-01-11] MEDS: ERTAPENEM INJ 1,000 MG in SODIUM CHLORIDE 0.9% INJ 100 ML IV SCH (15:30)
[2017-01-11] MEDS: HYDROmorphone HCL PF 1 MG/ML VIAL IV PUSH PRN (17:28)
[2017-01-11] MEDS: SODIUM CHLORIDE 0.9% FLUSH 10 ML FLUSH IV FLUSH PRN (17:30)
[2017-01-11 20:00] VITALS: BP 120/49; PULSE 76; RESP 20; TEMP 98.7; O2SAT 90
[2017-01-11] MEDS: RIVAROXABAN 20 MG TAB PO SCH (22:09)
[2017-01-11] MEDS: TOLTERODINE TARTRATE 4 MG CAP LA PO SCH (22:09)
[2017-01-11] MEDS: ESCITALOPRAM OXALATE 20 MG TAB PO SCH (22:10)
[2017-01-11] MEDS: ZOLPIDEM TARTRATE 5 MG TAB PO PRN (22:37)
[2017-01-11] MEDS: traZODone HCL 100 MG TAB PO SCH (22:38)
[2017-01-11] MEDS: ALPRAZolam 1 MG TAB PO PRN (22:38)
[2017-01-11] MEDS: BACLOFEN 20 MG TAB PO PRN (22:38)
[2017-01-12] MEDS: MIDODRINE 5 MG TAB PO SCH ×3 (05:36→21:43)
[2017-01-12] MEDS: OXYBUTYNIN CHLORIDE 5 MG TAB PO SCH ×3 (05:37→21:43)
[2017-01-12] MEDS: MORPHINE SULFATE 100 MG CONTROLLED RELEASE TAB PO SCH ×3 (05:37→21:26)
[2017-01-12] MEDS: LEVOTHYROXINE SODIUM 50 MCG TAB PO SCH (05:37)
[2017-01-12] MEDS: MORPHINE SULFATE 30 MG CONTROLLED RELEASE TAB PO SCH ×3 (05:38→21:28)
[2017-01-12] MEDS: INSULIN ASPART SUPPLEMENTAL SCALE SQ SCH ×4 (05:52→21:00)
[2017-01-12] MEDS: NYSTAT/DIPHENHY/LIDO MOUTHWASH (Adult) 120ML SWISH-SWAL SCH ×6 (05:59→21:00)
[2017-01-12 06:07] LABS: AUTOMATED NEUTROPHIL # 7.1 TH/MM3 (1.8-7.7); BASOPHIL # 0.1 TH/MM3 (0-0.2); EOSINOPHIL # 0.5 TH/MM3 (0-0.4); EOSINOPHIL % 4.8 % (0.0-4.0); HEMATOCRIT 28.4 % (39.0-51.0); HEMO FLAGS DIFF FINAL; LYMPH % 23.4 % (9.0-44.0); LYMPHOCYTE # 2.6 TH/MM3 (1.0-4.8); MEAN CELL VOLUME 75.3 FL (80.0-100.0); MEAN CORPUSCULAR HEMOGLOBIN 23.7 PG (27.0-34.0); MEAN CORPUSCULAR HGB CONC 31.5 % (32.0-36.0); MONO % 6.1 % (0.0-8.0); NEUT % 64.7 % (16.0-70.0); PLATELET COUNT 397 TH/MM3 (150-450); RED BLOOD COUNT 3.78 MIL/MM3 (4.50-5.90); RED CELL DISTRIBUTION WIDTH 22.5 % (11.6-17.2)
[2017-01-12 06:47] LABS: ALT (GPT) 13 U/L (12-78); ANION GAP 5 MEQ/L (5-15); AST (GOT) 13 U/L (15-37); BICARBONATE 33.8 MEQ/L (21.0-32.0); BLOOD UREA NITROGEN 26 MG/DL (7-18); CHLORIDE 102 MEQ/L (98-107); GLOMERULAR FILTRATION RATE 96 ML/MIN (>89); POTASSIUM 4.5 MEQ/L (3.5-5.1); SODIUM (NA) 141 MEQ/L (136-145)
[2017-01-12 06:50] LABS: ALKALINE PHOSPHATASE 133 U/L (45-117); TOTAL BILIRUBIN ADULT 0.2 MG/DL (0.2-1.0)
[2017-01-12] MEDS: INSULIN DETEMIR 100 UNITS/ML VIAL SQ SCH ×2 (07:00→21:00)
[2017-01-12 08:00] VITALS: BP 109/55; PULSE 78; RESP 18; TEMP 96.5; O2SAT 91
[2017-01-12] MEDS: INSULIN ASPART 1,000 UNITS/10 ML VIAL SQ SCH ×3 (08:00→15:43)
[2017-01-12 08:23] VITALS: O2SAT 92
[2017-01-12] MEDS: COLLAGENASE OINT 30 GM TUBE TOPICAL SCH (09:00)
[2017-01-12] MEDS: POVIDONE IODINE 10% OINT 30 GM TUBE TOPICAL SCH (09:00)
[2017-01-12] MEDS: ASCORBIC ACID 500 MG TAB PO SCH ×2 (09:00→21:00)
[2017-01-12] MEDS: SODIUM CHLORIDE 0.9% FLUSH 10 ML FLUSH IV FLUSH SCH ×3 (09:00→21:00)
[2017-01-12] MEDS: DOCUSATE SODIUM 50 MG/SENNA 8.6 MG TAB PO SCH ×2 (09:00→21:27)
[2017-01-12] MEDS: FLUTICASONE PROPIONATE 50 MCG/ACT 16 GM NASAL SPRAY EACH NARE SCH (09:00)
[2017-01-12] MEDS: ATORVASTATIN 40 MG TAB PO SCH (09:00)
[2017-01-12] MEDS: buPROPion HCL 150 MG SUSTAINED RELEASE TAB PO SCH (09:00)
[2017-01-12] MEDS: FAMOTIDINE 20 MG TAB PO SCH (09:00)
[2017-01-12] MEDS: GABAPENTIN 300 MG CAP PO SCH ×3 (09:00→16:21)
[2017-01-12] MEDS: CLOTRIMAZOLE 1% CREAM 15 GM TOPICAL SCH ×2 (09:00→21:00)
[2017-01-12] MEDS: NYSTATIN 100,000 U/GM PWD 15 GM BTL TOPICAL SCH ×2 (09:00→21:00)
[2017-01-12] MEDS: LACTOBACILLUS ACIDOPHILUS TAB PO SCH ×3 (09:00→16:21)
--- NOTE | 2017-01-12 10:55 | HHI.PR ---
Subjective Remarks Follow up for paraplegia, chronic pain, neurogenic bladder and severe sepsis. Patient seen and examined today. Patient lying in bed on CPAP machine. States he was up most of the night due to the constant CPAP machine alarms. Denies any recent headaches, dizziness, cough, shortness of breath, chest pain, palpitations, abdominal pain, n/v, dysuria. Positive BM, patient states some diarrhea today. Will continue to monitor. Objective Vitals Vital Signs Date Time Temp Pulse Resp B/P Pulse Ox O2 Delivery O2 Flow Rate FiO2 01/12/17 09:31 Bi-Pap 01/12/17 08:23 92 Nasal Cannula 2.00 01/12/17 08:00 96.5 78 18 109/55 91 01/11/17 23:09 16 01/11/17 23:09 16 01/11/17 20:00 98.7 76 20 120/49 90 01/11/17 20:00 Room Air I/O 01/11/17 01/11/17 01/11/17 01/12/17 01/12/17 01/12/17 06:59 14:59 22:59 06:59 14:59 22:59 Intake Total 480 ml 0 ml 360 ml 360 ml Output Total 1175 ml 1200 ml 2875 ml 1425 ml Balance -695 ml -1200 ml -2515 ml -1065 ml Intake Oral 480 ml 0 ml 360 ml 360 ml IV Total 0 ml Output Urine Total 1175 ml 1200 ml 2875 ml 1425 ml # Bowel Movements 0 0 0 0 Result Diagram: 01/12/17 0530 01/12/17 0530 Imaging Last Impressions Chest X-Ray 01/05/17 0000 Signed Impressions: Service Date/Time: December 17:51 - CONCLUSION: Left arm PICC has his tip in the superior vena cava. Mild cardiomegaly with a globular configuration. Please see above. Elliott Livingston MD Objective Remarks GENERAL: Morbidly obese male, well-developed patient lying awake in bed on CPAP machine. SKIN: Warm and dry. No rash. Right upper arm bruising. HEENT: Normocephalic. Atraumatic.Pupils equal and round. No scleral icterus. No injection or drainage. No nasal bleeding or discharge. Mucous membranes pink and moist. Neck supple. CARDIOVASCULAR: Regular rate and rhythm. S1, S2 noted. No murmur appreciated. RESPIRATORY: No accessory muscle use. Distant breath sounds noted, clear to auscultation. Breath sounds equal bilaterally. GASTROINTESTINAL: Abdomen soft, round, obese, non-tender, nondistended. Normoactive bowel sounds x4. MUSCULOSKELETAL: No obvious deformities. Extremities without clubbing, cyanosis , or edema. NEUROLOGICAL: Awake and alert. No obvious cranial nerve deficits. Motor grossly within normal limits. Normal speech. PSYCHIATRIC: Appropriate mood and affect; insight and judgment normal. Procedures 11/25- S/P flexible cystoscopy with replacement of kyle catheter Date of Insertion: January 04, 2017 Line: PICC Side: Left A/P Problem List: (1) UTI (urinary tract infection) ICD Code: N39.0 Status: Resolved (2) Chronic pain ICD Code: G89.29 Status: Chronic (3) Type 2 diabetes mellitus ICD Code: E11.9 Status: Chronic (4) Morbidly obese ICD Code: E66.01 Status: Chronic (5) Depression ICD Code: F32.9 Status: Chronic (6) Pressure ulcer ICD Code: L89.90 Status: Chronic (7) Sleep apnea ICD Code: G47.30 Status: Chronic (8) Hypothyroidism ICD Code: E03.9 Status: Chronic (9) Acute hyperkalemia ICD Code: E87.5 Status: Acute Assessment and Plan 25 y/o male with a history of paraplegia, neurogenic bladder, HTN, chronic reoccurring DVT, chronic pain, LAKA, sleep apnea, CHF was brought into the ED as a felipe act because he was threatening staff and using a taser. At time of admission he reported feeling fatigued and experienced nausea and vomiting almost every night for the past month. Furthermore, he complained of hematuria and was told last year at [facility] he had gastric ulcers, but feels he is still bleeding. Last EGD done at [place] was 2012. He reported multiple wounds on his sacrum, back, right thigh and left hip, and has not had wound care in the 2 weeks preceding hospitalization. Patient also reported his Kyle catheter has not been replaced in 3 months and the last time required cystoscopy. Severe Sepsis (01/02/17 noted fever 102.1, leukocytosis 28.6k, BP 74/35, LISA source UTI, bacreremia E coli ) - recent h/o ESBL, MDRO. Patient also had diarrhea, C diff negative. - Leukocytosis WBC 28.6, temp 102 on 01/02. Now resolved, WBC 7.1 --> 6.7--> 11.0 - Renal function improved, creatinine 1.14 -->1.06 --> 0.94. Note: Patient refused on multiple occasions to change Kyle ( attempts by Dr Zhang and Dr Baez urology and was fired by urology as patient noncompliant). Kyle changed 01/04/17. Continues to leak. Reconsult Urology. - Blood cultures positive E coli on 01/02. Redrew blood cultures on 01/03 NGTD. - Repeat urine culture ordered for post Kyle catheter insertion 01/04. Mixed monique found, probable contaminants. - Ertapenem 1 g IV Q24hr until 01/15. ID signed off 01/07/17, no new recommendations. MRSA in the sputum possibly colonization. Acute kidney injury: suspect secondary to urinary tract infection, severe sepsis with end organ damage. Kyle changed 01/04/17. (note patient refused on multiple occasions to kyle changed). Neurogenic bladder - Blood pressure stable. Continue Midodrine. Continue Oxybutynin 5mg bid. - FC changed 01/04. - Appreciate nephrology following. - Improved CLAY MIXER 1.14 --> 1.06 --> 0.94. Nonproductive cough - Chest x-ray ordered and reviewed, examination quality is less than optimal due to patient body habitus. No acute finding appreciated. - Flonase daily x 14 days, end date . Diabetes Mellitus insulin dependent, uncontrolled A1c is 9.7 - Monitor Accu-Cheks, continue sliding scale insulin. - Continue Levemir 30 units subq in am and 32 units subq qhs. - Continue prandial insulin coverage, Novolog 3 units TID before each meal. Patient has been refusing, encouraged. - Continue to monitor and adjust the regimen as needed. - Encouraged compliance with ordered ADA diet. Chronic pain. Home medications baclofen, morphine, oxycodone. Continue Oramorph. - No IV pain medications at this time. Sleep apnea Insomnia - Continue CPAP at night, ordered for PEEP of 16.0 cm H2O. - Continue home medications Ambien PRN & Trazadone 200 qHS. Morbid obesity: BMI 97.9. Outpatient general surgery referral needed for possible surgical interventions. Chronic pressure ulcers: Wound care team following. Patient turning himself. Anxiety and depression: no homicidal or suicidal ideations - Was evaluated by psych in the ER, Felipe acted lifted, did not meet inpatient psychiatric and admission criteria. - Patient has long history of being on psychiatric medication, currently on Lexapro. Previously was on [place] and did not do well with mood on this. - Psychiatry follow-up appreciated. Hyperlipidemia: Continue Lipitor. Hypothyroidism: Continue levothyroxine. Substance use: tox screen on admission significant for opiates, benzos, cannabinoids. Constipation: PRN laxatives. DVT prophylaxis: On Xarelto DNR status Palliative care following. d/w patient and Dr. Cade. 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
[2017-01-12] MEDS: ERTAPENEM INJ 1,000 MG in SODIUM CHLORIDE 0.9% INJ 100 ML IV SCH (15:43)
[2017-01-12 16:00] VITALS: BP 139/79; PULSE 86; RESP 18; TEMP 96.9; O2SAT 96
[2017-01-12] MEDS: HYDROmorphone HCL PF 1 MG/ML VIAL IV PUSH PRN (16:28)
[2017-01-12 16:39] LABS: HEMOGLOBIN A1a 1.2 %; HEMOGLOBIN A1b 2.2 %; HEMOGLOBIN Ao 81.2 %; HEMOGLOBIN LA1C 2.2 %; HEMOGLOBIN P3 6.2 %
[2017-01-12 20:00] VITALS: BP 100/57; PULSE 82; RESP 18; TEMP 97.7; O2SAT 93
[2017-01-12] MEDS: ESCITALOPRAM OXALATE 20 MG TAB PO SCH (21:00)
[2017-01-12] MEDS: TOLTERODINE TARTRATE 4 MG CAP LA PO SCH (21:00)
[2017-01-12] MEDS: RIVAROXABAN 20 MG TAB PO SCH (21:00)
[2017-01-12] MEDS: ALPRAZolam 1 MG TAB PO PRN (21:32)
[2017-01-12] MEDS: traZODone HCL 100 MG TAB PO SCH (21:32)
[2017-01-12] MEDS: BACLOFEN 20 MG TAB PO PRN (21:32)
[2017-01-13 04:00] VITALS: BP 100/50; PULSE 81; RESP 20; TEMP 97.3; O2SAT 92
[2017-01-13] MEDS: MORPHINE SULFATE 30 MG CONTROLLED RELEASE TAB PO SCH ×3 (05:45→21:20)
[2017-01-13] MEDS: LEVOTHYROXINE SODIUM 50 MCG TAB PO SCH (05:45)
[2017-01-13] MEDS: MIDODRINE 5 MG TAB PO SCH ×3 (05:45→21:17)
[2017-01-13] MEDS: MORPHINE SULFATE 100 MG CONTROLLED RELEASE TAB PO SCH ×3 (05:46→21:19)
[2017-01-13] MEDS: INSULIN DETEMIR 100 UNITS/ML VIAL SQ SCH ×2 (05:54→21:58)
[2017-01-13] MEDS: INSULIN ASPART SUPPLEMENTAL SCALE SQ SCH ×4 (05:55→21:58)
[2017-01-13] MEDS: OXYBUTYNIN CHLORIDE 5 MG TAB PO SCH ×3 (05:56→21:31)
[2017-01-13] MEDS: NYSTAT/DIPHENHY/LIDO MOUTHWASH (Adult) 120ML SWISH-SWAL SCH ×6 (05:56→21:00)
[2017-01-13] MEDS: INSULIN ASPART 1,000 UNITS/10 ML VIAL SQ SCH ×3 (08:00→16:45)
[2017-01-13] MEDS: POVIDONE IODINE 10% OINT 30 GM TUBE TOPICAL SCH (09:00)
[2017-01-13] MEDS: FAMOTIDINE 20 MG TAB PO SCH (09:00)
[2017-01-13] MEDS: buPROPion HCL 150 MG SUSTAINED RELEASE TAB PO SCH (09:00)
[2017-01-13] MEDS: GABAPENTIN 300 MG CAP PO SCH ×4 (09:00→16:48)
[2017-01-13] MEDS: SODIUM CHLORIDE 0.9% FLUSH 10 ML FLUSH IV FLUSH SCH ×3 (09:00→21:00)
[2017-01-13] MEDS: NYSTATIN 100,000 U/GM PWD 15 GM BTL TOPICAL SCH ×2 (09:00→21:00)
[2017-01-13] MEDS: ATORVASTATIN 40 MG TAB PO SCH (09:00)
[2017-01-13] MEDS: CLOTRIMAZOLE 1% CREAM 15 GM TOPICAL SCH ×2 (09:00→21:00)
[2017-01-13] MEDS: ASCORBIC ACID 500 MG TAB PO SCH ×2 (09:00→21:15)
[2017-01-13] MEDS: COLLAGENASE OINT 30 GM TUBE TOPICAL SCH (09:00)
[2017-01-13] MEDS: FLUTICASONE PROPIONATE 50 MCG/ACT 16 GM NASAL SPRAY EACH NARE SCH (09:00)
[2017-01-13] MEDS: DOCUSATE SODIUM 50 MG/SENNA 8.6 MG TAB PO SCH ×2 (09:00→21:16)
[2017-01-13] MEDS: LACTOBACILLUS ACIDOPHILUS TAB PO SCH ×4 (09:00→16:48)
--- NOTE | 2017-01-13 11:27 | HHI.PR ---
Subjective Remarks Follow-up visit paraplegic, chronic pain, neurogenic bladder with suprapubic catheter use, urosepsis. Patient seen and examined today. Lying in bed on BiPAP mask. States he doesn't want to be bothered and attempts to cover himself with blankets. As per nursing, patient has refused all medications and treatment this morning and was to be left alone and go. They will continue to offer meds and other treatments. Patient appears comfortable. Objective Vitals Vital Signs Date Time Temp Pulse Resp B/P Pulse Ox O2 Delivery O2 Flow Rate FiO2 01/13/17 06:25 18 01/13/17 06:25 18 01/13/17 04:00 97.3 81 20 100/50 92 01/12/17 21:00 Room Air 01/12/17 20:00 97.7 82 18 100/57 93 01/12/17 16:00 96.9 86 18 139/79 96 I/O 01/12/17 01/12/17 01/12/17 01/13/17 01/13/17 01/13/17 07:00 15:00 23:00 07:00 15:00 23:00 Intake Total 360 ml 240 ml 1222 ml 620 ml Output Total 1425 ml 100 ml Balance -1065 ml 240 ml 1222 ml 520 ml Intake Oral 360 ml 240 ml 1022 ml 620 ml IV Total 200 ml Output Urine Total 1425 ml 100 ml # Voids 1 5 5 # Bowel Movements 0 0 0 0 Result Diagram: 01/12/17 0530 01/12/17 0530 Imaging Last Impressions Chest X-Ray 01/05/17 0000 Signed Impressions: Service Date/Time: December 17:51 - CONCLUSION: Left arm PICC has his tip in the superior vena cava. Mild cardiomegaly with a globular configuration. Please see above. Elliott Livingston MD Objective Remarks GENERAL: Morbidly obese male, well-developed patient lying in bed, NAD. SKIN: Warm and dry. Ecchymosis right upper extremity secondary to HEENT: Normocephalic. Atraumatic.Pupils equal and round. No scleral icterus. No injection or drainage. No nasal bleeding or discharge. Mucous membranes pink and moist. CARDIOVASCULAR: Regular rate and rhythm. RESPIRATORY: No accessory muscle use. Distant breath sounds noted, clear to auscultation. Breath sounds equal bilaterally. GASTROINTESTINAL: Abdomen soft, round, obese, non-tender, nondistended. Normoactive bowel sounds x4. MUSCULOSKELETAL: No obvious deformities. Extremities without clubbing, cyanosis , or edema. NEUROLOGICAL: Eyes closed. Motor grossly within normal limits. Normal speech. Procedures 11/25- S/P flexible cystoscopy with replacement of kyle catheter Date of Insertion: January 04, 2017 Line: PICC Side: Left A/P Problem List: (1) UTI (urinary tract infection) ICD Code: N39.0 Status: Resolved (2) Chronic pain ICD Code: G89.29 Status: Chronic (3) Type 2 diabetes mellitus ICD Code: E11.9 Status: Chronic (4) Morbidly obese ICD Code: E66.01 Status: Chronic (5) Depression ICD Code: F32.9 Status: Chronic (6) Pressure ulcer ICD Code: L89.90 Status: Chronic (7) Sleep apnea ICD Code: G47.30 Status: Chronic (8) Hypothyroidism ICD Code: E03.9 Status: Chronic (9) Acute hyperkalemia ICD Code: E87.5 Status: Acute Assessment and Plan 25 y/o male with a history of paraplegia, neurogenic bladder, HTN, chronic reoccurring DVT, chronic pain, LAKA, sleep apnea, CHF. Prolonged hospital stay. Most recently patient was found to be in severe sepsis. Severe Sepsis (01/02/17 noted fever 102.1, leukocytosis 28.6k, BP 74/35, LISA source UTI, bacreremia E coli ) - recent h/o ESBL, MDRO. - Kyle changed 01/04/[address] Zhang. - Blood cultures positive E coli. - Repeat urine culture ordered for post Kyle catheter insertion 01/04. Mixed monique found, probable contaminants. - On Ertapenem 1 g IV Q24hr. ID following, appreciate recommendations. MRSA in the sputum possibly colonization. - ID following. Recommends continued ertapenem would stop date 01/15/17 - Urology following - Dr. Meraz. Kyle with leakage will be an ongoing problem, recommends to irrigate with 50 cc an episode a daily basis to keep lumen patent. Recommends Kyle catheter replacement monthly. Acute kidney injury: suspect secondary to urinary tract infection, severe sepsis with end organ damage. Kyle changed 01/04/17. (note patient refused on multiple occasions to kyle changed). - Resolved. Improved creatinine - Nephrology signed off for now Nonproductive cough, chronic - Chest x-ray ordered and reviewed, examination quality is less than optimal due to patient body habitus. No acute finding appreciated. - Flonase daily x 14 days Diabetes Mellitus insulin dependent, uncontrolled HA1c is 9.7 - Monitor Accu-Cheks, continue sliding scale insulin. - Continue Levemir 30 units subq in am and 32 units subq qhs. - Continue prandial insulin coverage, Novolog 3 units TID before each meal. - Continue to monitor and adjust the regimen as needed. - Encouraged compliance with ordered ADA diet. - Repeat A1c 8.2. Improved with current regimen. Chronic pain. Home medications baclofen, morphine, oxycodone. Continue Oramorph. - Dilaudid for breakthrough may be given if BP wnl and patient is not lethargic. Discuss with nursing. Sleep apnea Insomnia - Continue CPAP at night - Continue home medications Ambien PRN & Trazadone 200 qHS. BIPAP at night. Morbid obesity: BMI 97.9. Outpatient general surgery referral needed for possible surgical interventions. - BMI 97.9 --> 98.3 Chronic pressure ulcers: Wound care team following. Patient turning himself. Anxiety and depression: no homicidal or suicidal ideations - Was evaluated by psych in the ER, Felipe acted lifted - Patient has long history of being on psychiatric medication, currently on Lexapro. Previously was on [place] and did not do well with mood. - Psychiatry consult recommends continue current medication including addition of gabapentin for anxiety. Does not qualify for inpatient psychiatry admission. Hyperlipidemia - Continue Lipitor. Hypothyroidism - Continue levothyroxine. Constipation: PRN laxatives. Mouth sore: Magic mouthwash DVT prophylaxis: On Xarelto DNR status Palliative care following. Discuss with patient, nursing, Dr. Cade Discharge Planning Placement to SNF coordinated by case management. Needs accepting SNF. 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
[2017-01-13 12:00] VITALS: O2SAT 96
[2017-01-13 16:00] VITALS: BP 127/66; PULSE 80; RESP 14; TEMP 97.5; O2SAT 92
[2017-01-13] MEDS: ERTAPENEM INJ 1,000 MG in SODIUM CHLORIDE 0.9% INJ 100 ML IV SCH (16:41)
[2017-01-13] MEDS: HYDROmorphone HCL PF 1 MG/ML VIAL IV PUSH PRN (17:16)
[2017-01-13 18:09] VITALS: O2SAT 96
[2017-01-13 20:00] VITALS: BP 118/61; PULSE 83; RESP 18; TEMP 97.4; O2SAT 93
[2017-01-13 21:03] VITALS: O2SAT 93
[2017-01-13] MEDS: MAGNESIUM CITRATE SOLN 300 ML BTL PO PRN (21:14)
[2017-01-13] MEDS: ALPRAZolam 1 MG TAB PO PRN (21:15)
[2017-01-13] MEDS: ZOLPIDEM TARTRATE 5 MG TAB PO PRN (21:15)
[2017-01-13] MEDS: traZODone HCL 100 MG TAB PO SCH (21:16)
[2017-01-13] MEDS: RIVAROXABAN 20 MG TAB PO SCH (21:16)
[2017-01-13] MEDS: ESCITALOPRAM OXALATE 20 MG TAB PO SCH (21:16)
[2017-01-13] MEDS: TOLTERODINE TARTRATE 4 MG CAP LA PO SCH (21:17)
[2017-01-13] MEDS: BACLOFEN 20 MG TAB PO PRN (21:20)
[2017-01-14] MEDS: INSULIN ASPART SUPPLEMENTAL SCALE SQ SCH ×4 (05:24→21:00)
[2017-01-14] MEDS: MIDODRINE 5 MG TAB PO SCH ×3 (05:24→21:03)
[2017-01-14] MEDS: LEVOTHYROXINE SODIUM 50 MCG TAB PO SCH (05:24)
[2017-01-14] MEDS: OXYBUTYNIN CHLORIDE 5 MG TAB PO SCH ×3 (05:24→21:03)
[2017-01-14] MEDS: INSULIN DETEMIR 100 UNITS/ML VIAL SQ SCH ×2 (05:30→21:13)
[2017-01-14] MEDS: HYDROmorphone HCL PF 1 MG/ML VIAL IV PUSH PRN ×2 (05:30→17:24)
[2017-01-14] MEDS: MORPHINE SULFATE 100 MG CONTROLLED RELEASE TAB PO SCH ×3 (05:39→22:00)
[2017-01-14] MEDS: MORPHINE SULFATE 30 MG CONTROLLED RELEASE TAB PO SCH ×3 (05:39→22:00)
[2017-01-14] MEDS: NYSTAT/DIPHENHY/LIDO MOUTHWASH (Adult) 120ML SWISH-SWAL SCH ×6 (07:00→21:00)
[2017-01-14] MEDS: INSULIN ASPART 1,000 UNITS/10 ML VIAL SQ SCH ×3 (08:00→16:33)
[2017-01-14] MEDS: POVIDONE IODINE 10% OINT 30 GM TUBE TOPICAL SCH (09:00)
[2017-01-14] MEDS: CLOTRIMAZOLE 1% CREAM 15 GM TOPICAL SCH ×2 (09:00→21:00)
[2017-01-14] MEDS: FLUTICASONE PROPIONATE 50 MCG/ACT 16 GM NASAL SPRAY EACH NARE SCH (09:00)
[2017-01-14] MEDS: ATORVASTATIN 40 MG TAB PO SCH (09:00)
[2017-01-14] MEDS: buPROPion HCL 150 MG SUSTAINED RELEASE TAB PO SCH (09:00)
[2017-01-14] MEDS: ASCORBIC ACID 500 MG TAB PO SCH ×2 (09:00→21:04)
[2017-01-14] MEDS: NYSTATIN 100,000 U/GM PWD 15 GM BTL TOPICAL SCH ×2 (09:00→21:00)
[2017-01-14] MEDS: COLLAGENASE OINT 30 GM TUBE TOPICAL SCH (09:00)
[2017-01-14] MEDS: FAMOTIDINE 20 MG TAB PO SCH (09:00)
[2017-01-14] MEDS: GABAPENTIN 300 MG CAP PO SCH ×3 (09:00→17:23)
[2017-01-14] MEDS: LACTOBACILLUS ACIDOPHILUS TAB PO SCH ×3 (09:00→17:23)
[2017-01-14] MEDS: SODIUM CHLORIDE 0.9% FLUSH 10 ML FLUSH IV FLUSH SCH ×3 (09:41→21:05)
[2017-01-14] MEDS: DOCUSATE SODIUM 50 MG/SENNA 8.6 MG TAB PO SCH ×2 (09:41→21:04)
[2017-01-14] MEDS: ERTAPENEM INJ 1,000 MG in SODIUM CHLORIDE 0.9% INJ 100 ML IV SCH (14:22)
[2017-01-14] MEDS: ONDANSETRON HCL 4 MG/2 ML VIAL IV PUSH PRN (14:50)
[2017-01-14 16:00] VITALS: BP 99/67; PULSE 88; RESP 20; TEMP 98.4; O2SAT 95
--- NOTE | 2017-01-14 16:34 | HHI.PR ---
Subjective Remarks Follow-up visit paraplegic, chronic pain, neurogenic bladder with suprapubic catheter use, urosepsis. Patient seen and examined today. Lying in bed on BiPAP mask. Reports being depressed over issues related to his health, current physical condition, anniversary of parents' deaths. Pt stated "why should I go on." Pt informed psychiatry would be consulted and he verbalized appreciation. Pt voiced having constipation for the past 2.5 days. He reported decreased fluid intake and said he continues to take his optiate medication and "I know taking the opiates makes my constipation worse". Stated having CAMRON quadrant pain. Per nursing (Donna), patient has refused all medications and treatment this morning and was to be left alone and go. RN stated she would continue to offer meds and other treatments. Pt denied cough, fever, shortness of breath, abdominal pain, NVD, bloody urine or stool. Patient appears comfortable. Objective Vitals Vital Signs Date Time Temp Pulse Resp B/P Pulse Ox O2 Delivery O2 Flow Rate FiO2 01/14/17 06:00 18 01/13/17 21:03 Full Face Mask 40.0 01/13/17 20:00 97.4 83 18 118/61 93 01/13/17 18:09 96 Nasal Cannula 1.00 I/O 01/13/17 01/13/17 01/13/17 01/14/17 01/14/17 01/14/17 07:00 15:00 23:00 07:00 15:00 23:00 Intake Total 620 ml 240 ml 960 ml 420 ml 600 ml Output Total 100 ml Balance 520 ml 240 ml 960 ml 420 ml 600 ml Intake Oral 620 ml 240 ml 960 ml 420 ml 600 ml IV Total 0 ml Output Urine Total 100 ml # Voids 5 1 5 4 # Bowel Movements 0 0 0 1 Result Diagram: 01/12/17 0530 01/12/17 0530 Imaging No new imaging studies ordered, pending or resulted within the past 24 hours. Objective Remarks GENERAL: Pt laying abed-sleeping yet awakened, morbidly obese, upper body shirtless, lower portion covered with sheet. SKIN: Warm and dry. Right leg amputated, catheter noted to be exiting lower portion of his body. HEAD: Normocephalic. EYES: No scleral icterus. No injection or drainage. NECK: Supple, trachea midline. No lymphadenopathy. CARDIOVASCULAR: Regular rate and rhythm without murmurs, gallops, or rubs. RESPIRATORY: Breath sounds equal bilaterally. No accessory muscle use. GASTROINTESTINAL: Abdomen soft and nondistended. Tenderness elicited CAMRON quadrant. Bowel sounds present, but diminished all quadrants. MUSCULOSKELETAL: No cyanosis, or edema. 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 PSYCHIATRIC: Pt A&Ox3, not evidencing overt signs of anxiety. Frustrations noted in subjective portion of exam regarding sleep and Bipap. Pt reported being depressed accepting of psychiatric referral. Procedures 11/25- S/P flexible cystoscopy with replacement of kyle catheter Medications and IVs Current Medications Medications (Trade) Dose Ordered Sig/Shyam Route Start Time Stop Time Status Last Admin (NS Flush) 2 ml UNSCH PRN IV FLUSH 11/10/16 21:45 01/11/17 17:30 (NS Flush) 2 ml BID IV FLUSH 11/11/16 09:00 01/14/17 09:41 (Narcan Inj) 0.4 mg UNSCH PRN IV 11/10/16 21:45 (Xanax) 2 mg Q6HR PRN PO 11/11/16 02:00 01/13/17 21:15 (Vitamin C) 500 mg BID PO 11/11/16 09:00 01/13/17 21:15 (Lipitor) 40 mg DAILY PO 11/11/16 09:00 01/10/17 09:37 (Lioresal) 20 mg Q6HR PRN PO 11/11/16 02:00 01/13/17 21:20 (Peridex 0.12% Liq) 10 ml BID PRN SWISH-SPIT 11/11/16 02:00 (Lotrimin 1% Cream) 1 applic DAILY PRN TOPICAL 11/11/16 02:00 01/06/17 21:39 (Lasix) 40 mg BID PO 11/11/16 09:00 Hold 11/28/16 08:34 (Synthroid) 50 mcg DAILY@06 PO 11/11/16 06:00 01/14/17 05:24 (KCl) 20 meq DAILY PO 11/11/16 09:00 Hold 11/16/16 08:47 (Phenergan) 25 mg Q8HR PRN PO 11/11/16 02:00 12/29/16 13:52 (Pepcid) 20 mg DAILY PO 11/11/16 09:00 01/10/17 09:37 (Xarelto) 20 mg HS PO 11/11/16 21:00 01/13/17 21:16 (Mylicon Chew) 160 mg ACHS PRN CHEW 11/11/16 02:00 01/09/17 13:42 (Zofran Inj) 4 mg Q6HR PRN IV PUSH 11/11/16 03:15 01/14/17 14:50 (D50w (Vial) Inj) 25 ml UNSCH PRN IV PUSH 11/12/16 11:45 (Glucagon Inj) 1 mg UNSCH PRN OTHER 11/12/16 11:45 (Citroma Liq) 600 ml Q24H PRN PO 11/13/16 14:45 01/13/17 21:14 (Mycostatin Powder) 1 applic BID TOPICAL 11/13/16 21:00 01/10/17 21:52 (Tylenol) 650 mg Q4H PRN PO 11/18/16 17:30 01/06/17 23:17 (Santyl Oint) 1 applic DAILY TOPICAL 11/23/16 12:45 01/10/17 09:40 (Betadine 10% Oint) 1 applic DAILY TOPICAL 11/23/16 18:32 01/10/17 09:39 (NovoLOG INJ) 12 units TIDAC SQ 11/30/16 17:00 Hold 11/30/16 18:43 (Proamatine) 10 mg Q8HR PO 11/30/16 21:00 01/14/17 05:24 (Roxicodone) 30 mg Q4H PRN PO 12/06/16 12:30 01/10/17 17:13 (Wellbutrin Sr) 150 mg DAILY PO 12/10/16 16:15 01/10/17 09:37 (Lexapro) 20 mg HS PO 12/10/16 21:00 01/13/17 21:16 (Erin-Colace) 1 tab BID PO 12/10/16 21:00 01/14/17 09:41 (Ambien) 5 mg HS PRN PO 12/10/16 21:00 01/13/17 21:15 (Benadryl 2% Cream) 1 applic TID PRN TOPICAL 12/11/16 08:15 01/07/17 09:27 (Neurontin) 300 mg TID PO 12/12/16 18:00 01/12/17 16:21 (Ditropan) 5 mg Q8HR PO 12/14/16 14:00 01/14/17 05:24 (Detrol La) 4 mg HS PO 12/14/16 21:00 01/13/17 21:17 (Miralax) 17 gm DAILY PRN PO 12/19/16 09:45 12/26/16 10:17 (Desyrel) 200 mg HS@23 PO 12/21/16 23:00 01/13/17 21:16 (Lactulose Liq) 30 ml DAILY PRN PO 12/24/16 12:15 01/02/17 11:47 (Fleets Enema (Adult)) 133 ml UNSCH PRN RECTAL 12/26/16 11:45 12/26/16 12:49 (Levemir Inj) 32 units HS SQ 12/29/16 21:00 01/13/17 21:58 (Lotrimin 1% Cream) 1 applic Q12HR TOPICAL 01/01/17 09:00 01/10/17 21:52 (NovoLOG INJ) 3 units TIDAC SQ 01/02/17 12:00 01/07/17 17:21 (Lactinex) 1 tab TID PO 01/02/17 13:00 01/12/17 16:21 (Clear Eyes Redness Relief 0.012% Opth Soln) 1 drop Q6H PRN RIGHT EYE 01/02/17 13:45 01/07/17 09:27 Multi-Ingredient Mouthwash/Gargle 10 ml 10 ml QID SWISH-SWAL 01/02/17 18:00 01/16/17 17:59 01/10/17 21:52 (INVanz INJ/NS Inj) 100 ml @ 200 mls/hr Q24H IV 01/05/17 15:00 01/15/17 14:59 01/14/17 14:22 (Heparin Central Flush) See Protocol DAILY IV FLUSH 01/06/17 09:00 01/14/17 09:41 (Heparin Central Flush) See Protocol UNSCH PRN IV FLUSH 01/05/17 18:30 (NS Flush) UNSCH PRN IV FLUSH 01/05/17 18:30 (NS Flush) See Protocol DAILY IV FLUSH 01/06/17 09:00 01/14/17 09:41 (NS Flush) See Protocol UNSCH PRN IV FLUSH 01/05/17 18:30 (Flonase Yonatan Spr) 2 spray DAILY EACH NARE 01/07/17 11:00 01/21/17 10:59 (Magic Mouthwash Adult Liq) 5 ml BIDAC SWISH-SWAL 01/07/17 16:00 01/10/17 16:04 (Dilaudid Pf Inj) 1.5 mg Q4H PRN IV PUSH 01/09/17 12:00 01/14/17 05:30 (Oramorph Sr) 30 mg Q8H PO 01/10/17 06:00 01/13/17 05:45 (Oramorph Sr) 100 mg Q8H PO 01/10/17 06:00 01/13/17 05:46 Urinary Catheter: Yes Assessment to: Continue Kyle insert reason: Prolonged Immobilization Date of Insertion: January 04, 2017 Vascular Central Line Catheter: Yes Assessment to: Continue Line: PICC Side: Left Reason for Continuation Medication administration. A/P Problem List: (1) UTI (urinary tract infection) ICD Code: N39.0 Status: Resolved (2) Chronic pain ICD Code: G89.29 Status: Chronic (3) Type 2 diabetes mellitus ICD Code: E11.9 Status: Chronic (4) Morbidly obese ICD Code: E66.01 Status: Chronic (5) Depression ICD Code: F32.9 Status: Chronic (6) Pressure ulcer ICD Code: L89.90 Status: Chronic (7) Sleep apnea ICD Code: G47.30 Status: Chronic (8) Hypothyroidism ICD Code: E03.9 Status: Chronic (9) Acute hyperkalemia ICD Code: E87.5 Status: Acute Assessment and Plan 25 y/o male with a history of paraplegia, neurogenic bladder, HTN, chronic reoccurring DVT, chronic pain, LAKA, sleep apnea, CHF was brought into the ED as a felipe act because he was threatening staff and using a taser. At time of admission he reported feeling fatigued and experienced nausea and vomiting almost every night for the past month. Furthermore, he complained of hematuria and was told last year at [facility] he had gastric ulcers, but feels he is still bleeding. Last EGD done at [place] was 2012. He reported multiple wounds on his sacrum, back, right thigh and left hip, and has not had wound care in the 2 weeks preceding hospitalization. Patient also reported his Kyle catheter has not been replaced in 3 months and the last time required cystoscopy. Neurogenic Bladder Sepsis source likely urinary tract infection, ESBL Hypotension, resolved. - Blood pressure stable. Continue Midodrine - Status post Levaquin and Ertapenem for UTI. - Kyle catheter place by Dr. Meraz on 11/25. To be replaced by urology sometime this week. Continue Oxybutynin 5mg bid. - Status post urine cath leakage. Urology was reconsulted on 12/14. Patient declined catheter exchange at that time. No urological intervention at this time per urology. - Blood cultures NGTD. -Per note of 12/30/16 pt was agreeable to bedside catheter exchange, and was reported called. Awaiting their input/intervention. -01/01/17 Discussed with RN on 12/31/16 who was to page the on-call urology service. RN reported this morning speaking with Dr. Corral who deferred care back to Dr. Baez. Consult placed to Dr. Baez. Diabetes Mellitus: insulin requiring, reinforced and encourage. Noncompliance. Counseled. - Monitor Accu-Cheks, continue sliding scale insulin. -Improving. On Levemir 26 units subq in am and 32 units subq qhs. Adjust as needed - Continue to monitor and adjust the regimen as needed. -BG levels are improving as noted by bedside fingersticks (01/11/17) Chronic pain. Home medications baclofen, morphine, oxycodone. Continue Oramorph. -Pain medication regimen that was initiated on 12/31/16, on 01/07/17, was resumed 01/09/17. Sleep apnea Insomnia - CPAP at night - Continue home medications Ambien PRN & Trazadone 200 qHS. BIPAP at night. Morbid obesity: Outpatient general surgery referral needed for possible surgical interventions Chronic pressure ulcers: Wound care team following. Patient turning himself. Anxiety and depression: no homicidal or suicidal ideations - Was evaluated by psych in the ER, Felipe acted lifted, did not meet inpatient psychiatric and admission criteria. - Patient has long history of being on psychiatric medication, currently on Lexapro. Previously was on [place] and did not do well with mood on this. - Psychiatry follow-up appreciated. -New psychiatric consult placed 01/14/17: depression. Hyperlipidemia: Continue Lipitor. Hypothyroidism: Continue levothyroxine. Substance use: tox screen on admission significant for opiates, benzos, cannabinoids. Constipation: Laxatives available as needed. will add fleet enema as needed as well. Nausea and vomiting. Zofran as needed. Repeat CBC, BMP and magnesium stable. We'll continue to closely monitor Acute hyperkalemia -Noted on labs on 01/09/17 with return to upper normal noted on repeat lab of and downward trend on the morning of 01/09/17, DVT prophylaxis: On Xarelto DNR status Palliative care following. case discussed with pt, RN (Donna), and Dr. Cade. Discharge Planning difficult discharge. no accepting facility yet. 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 Jan 14, 2017 16:34
[2017-01-14] MEDS ORDERED: MAGNESIUM HYDROXIDE SUSP 30 ML CUP PO PRN (16:45)
[2017-01-14 20:00] VITALS: BP 132/60; PULSE 91; RESP 18; TEMP 97.2; O2SAT 93
[2017-01-14] MEDS: ALPRAZolam 1 MG TAB PO PRN (21:02)
[2017-01-14] MEDS: traZODone HCL 100 MG TAB PO SCH (21:02)
[2017-01-14] MEDS: RIVAROXABAN 20 MG TAB PO SCH (21:03)
[2017-01-14] MEDS: BACLOFEN 20 MG TAB PO PRN (21:03)
[2017-01-14] MEDS: ZOLPIDEM TARTRATE 5 MG TAB PO PRN (21:03)
[2017-01-14] MEDS: ESCITALOPRAM OXALATE 20 MG TAB PO SCH (21:04)
[2017-01-14] MEDS: TOLTERODINE TARTRATE 4 MG CAP LA PO SCH (21:04)
[2017-01-15] MEDS: INSULIN ASPART SUPPLEMENTAL SCALE SQ SCH ×4 (05:38→21:50)
[2017-01-15] MEDS: NYSTAT/DIPHENHY/LIDO MOUTHWASH (Adult) 120ML SWISH-SWAL SCH ×6 (05:39→21:00)
[2017-01-15] MEDS: OXYBUTYNIN CHLORIDE 5 MG TAB PO SCH ×4 (05:43→21:40)
[2017-01-15] MEDS: MORPHINE SULFATE 30 MG CONTROLLED RELEASE TAB PO SCH ×3 (05:45→22:00)
[2017-01-15] MEDS: LEVOTHYROXINE SODIUM 50 MCG TAB PO SCH (05:45)
[2017-01-15] MEDS: MIDODRINE 5 MG TAB PO SCH ×3 (05:45→21:45)
[2017-01-15] MEDS: MORPHINE SULFATE 100 MG CONTROLLED RELEASE TAB PO SCH ×3 (05:46→22:00)
[2017-01-15] MEDS: INSULIN DETEMIR 100 UNITS/ML VIAL SQ SCH ×2 (07:00→21:48)
[2017-01-15] MEDS: INSULIN ASPART 1,000 UNITS/10 ML VIAL SQ SCH ×3 (08:00→16:28)
[2017-01-15] MEDS: FLUTICASONE PROPIONATE 50 MCG/ACT 16 GM NASAL SPRAY EACH NARE SCH (08:56)
[2017-01-15] MEDS: SODIUM CHLORIDE 0.9% FLUSH 10 ML FLUSH IV FLUSH SCH ×3 (08:57→21:45)
[2017-01-15] MEDS: DOCUSATE SODIUM 50 MG/SENNA 8.6 MG TAB PO SCH ×2 (08:57→21:45)
[2017-01-15] MEDS: LACTOBACILLUS ACIDOPHILUS TAB PO SCH ×3 (08:57→16:24)
[2017-01-15] MEDS: GABAPENTIN 300 MG CAP PO SCH ×3 (08:57→16:23)
[2017-01-15] MEDS: FAMOTIDINE 20 MG TAB PO SCH (08:57)
[2017-01-15] MEDS: ATORVASTATIN 40 MG TAB PO SCH (08:57)
[2017-01-15] MEDS: ASCORBIC ACID 500 MG TAB PO SCH ×2 (08:57→21:45)
[2017-01-15] MEDS: POVIDONE IODINE 10% OINT 30 GM TUBE TOPICAL SCH (08:58)
[2017-01-15] MEDS: buPROPion HCL 150 MG SUSTAINED RELEASE TAB PO SCH (08:58)
[2017-01-15] MEDS: COLLAGENASE OINT 30 GM TUBE TOPICAL SCH (08:58)
[2017-01-15] MEDS: CLOTRIMAZOLE 1% CREAM 15 GM TOPICAL SCH ×2 (08:58→21:00)
[2017-01-15] MEDS: NYSTATIN 100,000 U/GM PWD 15 GM BTL TOPICAL SCH ×2 (08:58→21:00)
--- NOTE | 2017-01-15 11:07 | HHI.PR ---
Subjective Remarks Follow-up visit paraplegic, chronic pain, neurogenic bladder with suprapubic catheter use, urosepsis. Patient seen and examined today. Lying in bed sleeping , awakens to voice, on CPAP. States he is not sleeping well due to the CPAP alarms. Positive BM yesterday. Denies any abdominal pain or n/v, tolerating PO intake but per RN patient has diminished appetite. Patient also states that his Kyle has continued to leak. RN states that patient has been refusing flushing of urinary catheter. Denies any recent fever, chills, cough, shortness of breath , chest pain or dysuria. Objective Vitals Vital Signs Date Time Temp Pulse Resp B/P Pulse Ox O2 Delivery O2 Flow Rate FiO2 01/15/17 09:00 Bi-Pap 01/14/17 20:00 97.2 91 18 132/60 93 01/14/17 16:00 98.4 88 20 99/67 95 I/O 01/14/17 01/14/17 01/14/17 01/15/17 01/15/17 01/15/17 06:59 14:59 22:59 06:59 14:59 22:59 Intake Total 1380 ml 600 ml 480 ml 240 ml 120 ml Output Total 900 ml 950 ml Balance 1380 ml 600 ml -420 ml -710 ml 120 ml Intake Oral 1380 ml 600 ml 480 ml 240 ml 120 ml Output Urine Total 900 ml 950 ml # Voids 9 2 # Bowel Movements 1 1 0 Result Diagram: 01/12/17 0530 01/12/17 0530 Objective Remarks GENERAL: Morbidly obese male, well-developed patient lying awake in bed on CPAP machine. SKIN: Warm and dry. No rash. Right upper arm bruising. HEENT: Normocephalic. Atraumatic.Pupils equal and round. No scleral icterus. No injection or drainage. No nasal bleeding or discharge. Mucous membranes pink and moist. Neck supple. CARDIOVASCULAR: Regular rate and rhythm. S1, S2 noted. No murmur appreciated. RESPIRATORY: No accessory muscle use. Distant breath sounds noted, clear to auscultation. Breath sounds equal bilaterally. GASTROINTESTINAL: Abdomen soft, round, obese, non-tender, nondistended. Normoactive bowel sounds x4. MUSCULOSKELETAL: No obvious deformities. Extremities without clubbing, cyanosis , or edema. NEUROLOGICAL: Awake and alert. No obvious cranial nerve deficits. Motor grossly within normal limits. Normal speech. PSYCHIATRIC: Appropriate mood and affect; insight and judgment normal. Procedures 11/25- S/P flexible cystoscopy with replacement of kyle catheter Date of Insertion: January 04, 2017 Line: PICC Side: Left A/P Problem List: (1) UTI (urinary tract infection) ICD Code: N39.0 Status: Resolved (2) Chronic pain ICD Code: G89.29 Status: Chronic (3) Type 2 diabetes mellitus ICD Code: E11.9 Status: Chronic (4) Morbidly obese ICD Code: E66.01 Status: Chronic (5) Depression ICD Code: F32.9 Status: Chronic (6) Pressure ulcer ICD Code: L89.90 Status: Chronic (7) Sleep apnea ICD Code: G47.30 Status: Chronic (8) Hypothyroidism ICD Code: E03.9 Status: Chronic (9) Acute hyperkalemia ICD Code: E87.5 Status: Acute Assessment and Plan 25 y/o male with a history of paraplegia, neurogenic bladder, HTN, chronic reoccurring DVT, chronic pain, LAKA, sleep apnea, CHF was brought into the ED as a felipe act because he was threatening staff and using a taser. At time of admission he reported feeling fatigued and experienced nausea and vomiting almost every night for the past month. Furthermore, he complained of hematuria and was told last year at [facility] he had gastric ulcers, but feels he is still bleeding. Last EGD done at [place] was 2012. He reported multiple wounds on his sacrum, back, right thigh and left hip, and has not had wound care in the 2 weeks preceding hospitalization. Patient also reported his Kyle catheter has not been replaced in 3 months and the last time required cystoscopy. Severe Sepsis (01/02/17 noted fever 102.1, leukocytosis 28.6k, BP 74/35, LISA source UTI, bacreremia E coli ) - recent h/o ESBL, MDRO. Patient also had diarrhea, C diff negative. - Leukocytosis WBC 28.6, temp 102 on 01/02. Now resolved, WBC 7.1 --> 6.7--> 11.0 - Renal function improved, creatinine 1.14 -->1.06 --> 0.94. Note: Patient refused on multiple occasions to change Kyle ( attempts by Dr Zhang and Dr Baez urology and was fired by urology as patient noncompliant). Kyle changed 01/04/17. Ditroban changed to 10 mg PO BID for spasms. Monitor response. - Blood cultures positive E coli on 01/02. Redrew blood cultures on 01/03 NGTD. - Repeat urine culture ordered for post Kyle catheter insertion 01/04. Mixed monique found, probable contaminants. - Ertapenem 1 g IV Q24hr until 01/15. ID signed off 01/07/17, no new recommendations. MRSA in the sputum possibly colonization. Acute kidney injury: suspect secondary to urinary tract infection, severe sepsis with end organ damage. Kyle changed 01/04/17. (note patient refused on multiple occasions to kyle changed). Neurogenic bladder - Blood pressure stable. Continue Midodrine. Continue Oxybutynin 5mg bid. - FC changed 01/04. - Appreciate nephrology following. 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 Nonproductive cough - Chest x-ray ordered and reviewed, examination quality is less than optimal due to patient body habitus. No acute finding appreciated. - Flonase daily x 14 days, end date 01/21/17. Diabetes Mellitus insulin dependent, uncontrolled A1c is 9.7 - Monitor Accu-Cheks, continue sliding scale insulin. - Continue Levemir 30 units subq in am and 32 units subq qhs. - Continue prandial insulin coverage, Novolog 3 units TID before each meal. Patient has been refusing, encouraged. - Continue to monitor and adjust the regimen as needed. - Encouraged compliance with ordered ADA diet. Chronic pain. Home medications baclofen, morphine, oxycodone. Continue Oramorph. - No IV pain medications at this time. Sleep apnea Insomnia - Continue CPAP at night, ordered for PEEP of 16.0 cm H2O. - Continue home medications Ambien PRN & Trazadone 200 qHS. Morbid obesity: BMI 97.9. Outpatient general surgery referral needed for possible surgical interventions. Chronic pressure ulcers: Wound care team following. Patient turning himself. Anxiety and depression: no homicidal or suicidal ideations - Was evaluated by psych in the ER, Felipe acted lifted, did not meet inpatient psychiatric and admission criteria. - Patient has long history of being on psychiatric medication, currently on Lexapro. Previously was on [place] and did not do well with mood on this. - Psychiatry follow-up appreciated. Hyperlipidemia: Continue Lipitor. Hypothyroidism: Continue levothyroxine. Substance use: tox screen on admission significant for opiates, benzos, cannabinoids. Constipation: PRN laxatives. DVT prophylaxis: On Xarelto DNR status Palliative care following. d/w patient, nursing, and Dr. Cade. 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
[2017-01-15 12:00] VITALS: BP 96/55; PULSE 78; RESP 20; TEMP 96.9; O2SAT 99
[2017-01-15] MEDS: PROMETHAZINE HCL 25 MG TAB PO PRN (13:18)
[2017-01-15] MEDS: BACLOFEN 20 MG TAB PO PRN ×2 (13:18→21:45)
[2017-01-15 16:00] VITALS: BP 121/59; PULSE 91; RESP 20; TEMP 98.5; O2SAT 96
[2017-01-15 20:00] VITALS: BP 104/52; PULSE 86; RESP 20; TEMP 97.5; O2SAT 90
[2017-01-15] MEDS: TOLTERODINE TARTRATE 4 MG CAP LA PO SCH (21:00)
[2017-01-15] MEDS: ESCITALOPRAM OXALATE 20 MG TAB PO SCH (21:45)
[2017-01-15] MEDS: RIVAROXABAN 20 MG TAB PO SCH (21:45)
[2017-01-16] VITALS: BP 148/62; PULSE 96; RESP 20; TEMP 96.8; O2SAT 95
[2017-01-16] MEDS: ALPRAZolam 1 MG TAB PO PRN ×2 (00:25→05:48)
[2017-01-16] MEDS: ZOLPIDEM TARTRATE 5 MG TAB PO PRN (00:25)
[2017-01-16] MEDS: traZODone HCL 100 MG TAB PO SCH (00:26)
[2017-01-16] MEDS: LEVOTHYROXINE SODIUM 50 MCG TAB PO SCH (05:48)
[2017-01-16] MEDS: BACLOFEN 20 MG TAB PO PRN ×3 (05:48→20:33)
[2017-01-16] MEDS: MORPHINE SULFATE 100 MG CONTROLLED RELEASE TAB PO SCH ×3 (05:50→21:56)
[2017-01-16] MEDS: MORPHINE SULFATE 30 MG CONTROLLED RELEASE TAB PO SCH ×3 (05:50→21:56)
[2017-01-16] MEDS: MIDODRINE 5 MG TAB PO SCH ×3 (05:52→21:56)
[2017-01-16] MEDS: OXYBUTYNIN CHLORIDE 5 MG TAB PO SCH ×3 (05:54→21:54)
[2017-01-16] MEDS: INSULIN ASPART SUPPLEMENTAL SCALE SQ SCH ×4 (06:06→20:32)
[2017-01-16] MEDS: NYSTAT/DIPHENHY/LIDO MOUTHWASH (Adult) 120ML SWISH-SWAL SCH ×4 (06:07→16:00)
[2017-01-16 06:45] VITALS: BP 110/63
[2017-01-16] MEDS: INSULIN DETEMIR 100 UNITS/ML VIAL SQ SCH ×2 (07:00→20:33)
[2017-01-16 08:00] VITALS: BP 110/54; PULSE 85; RESP 18; TEMP 98.8; O2SAT 96
[2017-01-16] MEDS: SODIUM CHLORIDE 0.9% FLUSH 10 ML FLUSH IV FLUSH SCH ×3 (08:36→08:39)
[2017-01-16] MEDS: buPROPion HCL 150 MG SUSTAINED RELEASE TAB PO SCH (08:37)
[2017-01-16] MEDS: GABAPENTIN 300 MG CAP PO SCH ×3 (08:37→16:22)
[2017-01-16] MEDS: DOCUSATE SODIUM 50 MG/SENNA 8.6 MG TAB PO SCH ×2 (08:38→20:34)
[2017-01-16] MEDS: FAMOTIDINE 20 MG TAB PO SCH (08:38)
[2017-01-16] MEDS: ASCORBIC ACID 500 MG TAB PO SCH ×2 (08:38→20:34)
[2017-01-16] MEDS: ATORVASTATIN 40 MG TAB PO SCH (08:38)
[2017-01-16] MEDS: LACTOBACILLUS ACIDOPHILUS TAB PO SCH ×3 (08:40→16:20)
[2017-01-16] MEDS: FLUTICASONE PROPIONATE 50 MCG/ACT 16 GM NASAL SPRAY EACH NARE SCH (08:47)
[2017-01-16] MEDS: INSULIN ASPART 1,000 UNITS/10 ML VIAL SQ SCH ×3 (08:56→16:41)
[2017-01-16] MEDS: POVIDONE IODINE 10% OINT 30 GM TUBE TOPICAL SCH (08:57)
[2017-01-16] MEDS: COLLAGENASE OINT 30 GM TUBE TOPICAL SCH (08:57)
[2017-01-16] MEDS: CLOTRIMAZOLE 1% CREAM 15 GM TOPICAL SCH ×2 (08:58→20:35)
[2017-01-16] MEDS: NYSTATIN 100,000 U/GM PWD 15 GM BTL TOPICAL SCH ×2 (08:58→20:35)
[2017-01-16] MEDS: CLOTRIMAZOLE 1% CREAM 15 GM TOPICAL PRN (08:58)
--- NOTE | 2017-01-16 11:35 | HHI.PR ---
Subjective Remarks Follow-up visit paraplegic, chronic pain, neurogenic bladder with suprapubic catheter use, urosepsis. Patient seen and examined today. Patient lying in bed comfortably on RA. Denies any new acute complaints. Still complaining of leaking around catheter. Has been refusing Ditroban stating the problem is not spasms. Denies any recent fever, chills, cough, sob, chest pain, palpitations, abdominal pain, n/v or dysuria. Objective Vitals Vital Signs Date Time Temp Pulse Resp B/P Pulse Ox O2 Delivery O2 Flow Rate FiO2 01/16/17 08:00 98.8 85 18 110/54 96 01/16/17 06:45 110/63 01/16/17 00:00 96.8 96 20 148/62 95 01/15/17 20:00 97.5 86 20 104/52 90 01/15/17 16:00 98.5 91 20 121/59 96 01/15/17 12:00 96.9 78 20 96/55 99 I/O 01/15/17 01/15/17 01/15/17 01/16/17 01/16/17 01/16/17 07:00 15:00 23:00 07:00 15:00 23:00 Intake Total 240 ml 1320 ml 480 ml 360 ml Output Total 950 ml 1000 ml 3525 ml 1500 ml Balance -710 ml 320 ml -3045 ml -1140 ml Intake Oral 240 ml 1320 ml 480 ml 360 ml Output Urine Total 950 ml 1000 ml 3525 ml 1500 ml # Bowel Movements 0 0 0 0 Result Diagram: 01/12/17 0530 01/12/17 0530 Objective Remarks GENERAL: Morbidly obese male, well-developed patient lying awake in bed on CPAP machine. SKIN: Warm and dry. No rash. Right upper arm bruising. HEENT: Normocephalic. Atraumatic.Pupils equal and round. No scleral icterus. No injection or drainage. No nasal bleeding or discharge. Mucous membranes pink and moist. Neck supple. CARDIOVASCULAR: Regular rate and rhythm. S1, S2 noted. No murmur appreciated. RESPIRATORY: No accessory muscle use. Distant breath sounds noted, clear to auscultation. Breath sounds equal bilaterally. GASTROINTESTINAL: Abdomen soft, round, obese, non-tender, nondistended. Normoactive bowel sounds x4. MUSCULOSKELETAL: No obvious deformities. Extremities without clubbing, cyanosis , or edema. NEUROLOGICAL: Awake and alert. No obvious cranial nerve deficits. Motor grossly within normal limits. Normal speech. PSYCHIATRIC: Appropriate mood and affect; insight and judgment normal. Procedures 11/25- S/P flexible cystoscopy with replacement of kyle catheter Date of Insertion: January 04, 2017 Line: PICC Side: Left A/P Problem List: (1) UTI (urinary tract infection) ICD Code: N39.0 Status: Resolved (2) Chronic pain ICD Code: G89.29 Status: Chronic (3) Type 2 diabetes mellitus ICD Code: E11.9 Status: Chronic (4) Morbidly obese ICD Code: E66.01 Status: Chronic (5) Depression ICD Code: F32.9 Status: Chronic (6) Pressure ulcer ICD Code: L89.90 Status: Chronic (7) Sleep apnea ICD Code: G47.30 Status: Chronic (8) Hypothyroidism ICD Code: E03.9 Status: Chronic (9) Acute hyperkalemia ICD Code: E87.5 Status: Acute Assessment and Plan 25 y/o male with a history of paraplegia, neurogenic bladder, HTN, chronic reoccurring DVT, chronic pain, LAKA, sleep apnea, CHF was brought into the ED as a felipe act because he was threatening staff and using a taser. At time of admission he reported feeling fatigued and experienced nausea and vomiting almost every night for the past month. Furthermore, he complained of hematuria and was told last year at [facility] he had gastric ulcers, but feels he is still bleeding. Last EGD done at [place] was 2012. He reported multiple wounds on his sacrum, back, right thigh and left hip, and has not had wound care in the 2 weeks preceding hospitalization. Patient also reported his Kyle catheter has not been replaced in 3 months and the last time required cystoscopy. Severe Sepsis (01/02/17 noted fever 102.1, leukocytosis 28.6k, BP 74/35, LISA source UTI, bacreremia E coli ) - recent h/o ESBL, MDRO. Patient also had diarrhea, C diff negative. - Leukocytosis WBC 28.6, temp 102 on 01/02. Now resolved, WBC 7.1 --> 6.7--> 11.0 - Renal function improved, creatinine 1.14 -->1.06 --> 0.94. Note: Patient refused on multiple occasions to change Kyle ( attempts by Dr Zhang and Dr Baez urology and was fired by urology as patient noncompliant). Kyle changed 01/04/17. Ditroban changed to 10 mg PO BID for spasms. Patient has been refusing medication stating that spasms are not the reason for leaking. Patient encouraged not to refuse and educated on importance of taking dose prescribed to assess effectiveness. - Blood cultures positive E coli on 01/02. Redrew blood cultures on 01/03 NGTD. - Repeat urine culture ordered for post Kyle catheter insertion 01/04. Mixed monique found, probable contaminants. - Ertapenem 1 g IV Q24hr until 01/15. ID signed off 01/07/17, no new recommendations. MRSA in the sputum possibly colonization. Acute kidney injury: suspect secondary to urinary tract infection, severe sepsis with end organ damage. Kyle changed 01/04/17. (note patient refused on multiple occasions to kyle changed). Neurogenic bladder - Blood pressure stable. Continue Midodrine. Continue Oxybutynin 5mg bid. - FC changed 01/04. - Appreciate nephrology following. - Improved CLEAT THROWER 1.14 --> 1.06 --> 0.94. Nonproductive cough - Chest x-ray ordered and reviewed, examination quality is less than optimal due to patient body habitus. No acute finding appreciated. - Flonase daily x 14 days, end date 01/21/17. Diabetes Mellitus insulin dependent, uncontrolled A1c is 9.7 - Monitor Accu-Cheks, continue sliding scale insulin. - Continue Levemir 30 units subq in am and 32 units subq qhs. - Continue prandial insulin coverage, Novolog 3 units TID before each meal. Patient has been refusing, encouraged. - Continue to monitor and adjust the regimen as needed. - Encouraged compliance with ordered ADA diet. Chronic pain. Home medications baclofen, morphine, oxycodone. Continue Oramorph. - No IV pain medications at this time. Sleep apnea Insomnia - Continue CPAP at night, ordered for PEEP of 16.0 cm H2O. - Continue home medications Ambien PRN & Trazadone 200 qHS. Morbid obesity: BMI 97.9. Outpatient general surgery referral needed for possible surgical interventions. Chronic pressure ulcers: Wound care team following. Patient turning himself. Anxiety and depression: no homicidal or suicidal ideations - Was evaluated by psych in the ER, Felipe acted lifted, did not meet inpatient psychiatric and admission criteria. - Patient has long history of being on psychiatric medication, currently on Lexapro. Previously was on [place] and did not do well with mood on this. - Has been seen by psychiatrist 3 times now with no further recommendations, psychotherapy is not possible under these circumstances. Hyperlipidemia: Continue Lipitor. Hypothyroidism: Continue levothyroxine. Substance use: tox screen on admission significant for opiates, benzos, cannabinoids. Constipation: PRN laxatives. DVT prophylaxis: On Xarelto DNR status Palliative care following. d/w patient, nursing, and Dr. Cade. 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
[2017-01-16 12:00] VITALS: BP 98/53; PULSE 90; RESP 18; TEMP 97.7; O2SAT 97
[2017-01-16 18:05] VITALS: O2SAT 93
[2017-01-16 20:00] VITALS: BP 122/88; PULSE 81; RESP 20; TEMP 97.6
[2017-01-16] MEDS: TOLTERODINE TARTRATE 4 MG CAP LA PO SCH (20:34)
[2017-01-16] MEDS: ESCITALOPRAM OXALATE 20 MG TAB PO SCH (20:34)
[2017-01-16] MEDS: RIVAROXABAN 20 MG TAB PO SCH (20:34)
[2017-01-17] VITALS: BP 126/68; PULSE 93; RESP 18; TEMP 97.8; O2SAT 93
[2017-01-17] MEDS: traZODone HCL 100 MG TAB PO SCH ×2 (00:12→23:54)
[2017-01-17] MEDS: ALPRAZolam 1 MG TAB PO PRN ×3 (00:12→23:54)
[2017-01-17] MEDS: ZOLPIDEM TARTRATE 5 MG TAB PO PRN ×2 (00:12→23:54)
[2017-01-17] MEDS: HYDROmorphone HCL PF 1 MG/ML VIAL IV PUSH PRN ×2 (00:13→16:19)
[2017-01-17] MEDS: BACLOFEN 20 MG TAB PO PRN ×3 (02:46→23:54)
[2017-01-17] MEDS: OXYBUTYNIN CHLORIDE 5 MG TAB PO SCH ×3 (06:00→21:47)
[2017-01-17] MEDS: LEVOTHYROXINE SODIUM 50 MCG TAB PO SCH (06:07)
[2017-01-17] MEDS: MIDODRINE 5 MG TAB PO SCH ×3 (06:07→21:47)
[2017-01-17] MEDS: MORPHINE SULFATE 100 MG CONTROLLED RELEASE TAB PO SCH ×3 (06:08→21:45)
[2017-01-17] MEDS: MORPHINE SULFATE 30 MG CONTROLLED RELEASE TAB PO SCH ×3 (06:08→21:45)
[2017-01-17] MEDS: INSULIN ASPART SUPPLEMENTAL SCALE SQ SCH ×4 (06:09→20:30)
[2017-01-17] MEDS: INSULIN DETEMIR 100 UNITS/ML VIAL SQ SCH ×2 (06:10→20:24)
[2017-01-17] MEDS: NYSTAT/DIPHENHY/LIDO MOUTHWASH (Adult) 120ML SWISH-SWAL SCH ×2 (06:12→16:00)
[2017-01-17 08:00] VITALS: BP 110/78; PULSE 82; RESP 18; TEMP 97.8; O2SAT 94
[2017-01-17] MEDS: INSULIN ASPART 1,000 UNITS/10 ML VIAL SQ SCH ×5 (08:00→17:00)
[2017-01-17] MEDS: ASCORBIC ACID 500 MG TAB PO SCH ×2 (09:00→20:25)
[2017-01-17] MEDS: DOCUSATE SODIUM 50 MG/SENNA 8.6 MG TAB PO SCH ×2 (09:00→20:25)
[2017-01-17] MEDS: FLUTICASONE PROPIONATE 50 MCG/ACT 16 GM NASAL SPRAY EACH NARE SCH (09:00)
[2017-01-17] MEDS: POVIDONE IODINE 10% OINT 30 GM TUBE TOPICAL SCH (09:00)
[2017-01-17] MEDS: NYSTATIN 100,000 U/GM PWD 15 GM BTL TOPICAL SCH ×2 (09:00→20:31)
[2017-01-17] MEDS: GABAPENTIN 300 MG CAP PO SCH ×3 (09:00→17:51)
[2017-01-17] MEDS: COLLAGENASE OINT 30 GM TUBE TOPICAL SCH (09:00)
[2017-01-17] MEDS: CLOTRIMAZOLE 1% CREAM 15 GM TOPICAL SCH ×2 (09:00→20:31)
[2017-01-17] MEDS: LACTOBACILLUS ACIDOPHILUS TAB PO SCH ×3 (09:00→17:51)
[2017-01-17] MEDS: ATORVASTATIN 40 MG TAB PO SCH (11:24)
[2017-01-17] MEDS: buPROPion HCL 150 MG SUSTAINED RELEASE TAB PO SCH (11:24)
[2017-01-17] MEDS: FAMOTIDINE 20 MG TAB PO SCH (11:24)
[2017-01-17 12:00] VITALS: BP 102/54; PULSE 85; RESP 18; TEMP 98; O2SAT 92
--- NOTE | 2017-01-17 13:10 | HHI.PR ---
Subjective Remarks Follow-up visit paraplegic, chronic pain, neurogenic bladder with suprapubic catheter use, urosepsis. Patient seen and examined today. Patient is sleepy today, states he did not sleep well. Denies any new acute complaints. Tolerating PO intake. Afebrile. Pain controlled. Still refusing Ditropan. Objective Vitals Vital Signs Date Time Temp Pulse Resp B/P Pulse Ox O2 Delivery O2 Flow Rate FiO2 01/17/17 12:00 98.0 85 18 102/54 92 01/17/17 08:00 97.8 82 18 110/78 94 01/17/17 03:43 18 01/17/17 00:43 18 01/17/17 00:00 97.8 93 18 126/68 93 01/16/17 22:56 18 01/16/17 22:56 18 01/16/17 20:00 97.6 81 20 122/88 01/16/17 18:05 Full Face Mask 40.0 01/16/17 14:31 Nasal Cannula 1.00 I/O 01/16/17 01/16/17 01/16/17 01/17/17 01/17/17 01/17/17 07:00 15:00 23:00 07:00 15:00 23:00 Intake Total 360 ml 1200 ml 760 ml 580 ml Output Total 1500 ml 3100 ml 1200 ml 1200 ml Balance -1140 ml -1900 ml -440 ml -620 ml Intake Oral 360 ml 1200 ml 760 ml 580 ml Output Urine Total 1500 ml 3100 ml 1200 ml 1200 ml # Bowel Movements 0 Imaging Last Impressions Chest X-Ray 01/05/17 0000 Signed Impressions: Service Date/Time: December 17:51 - CONCLUSION: Left arm PICC has his tip in the superior vena cava. Mild cardiomegaly with a globular configuration. Please see above. Elliott Livingston MD Objective Remarks GENERAL: Morbidly obese male, well-developed patient lying awake in bed. SKIN: Warm and dry. No rash. Right upper arm bruising. HEENT: Normocephalic. Atraumatic.Pupils equal and round. No scleral icterus. No injection or drainage. No nasal bleeding or discharge. Mucous membranes pink and moist. Neck supple. CARDIOVASCULAR: Regular rate and rhythm. S1, S2 noted. No murmur appreciated. RESPIRATORY: No accessory muscle use. Distant breath sounds noted, clear to auscultation. Breath sounds equal bilaterally. GASTROINTESTINAL: Abdomen soft, round, obese, non-tender, nondistended. Normoactive bowel sounds x4. MUSCULOSKELETAL: No obvious deformities. Extremities without clubbing, cyanosis , or edema. NEUROLOGICAL: Awake and alert. No obvious cranial nerve deficits. Motor grossly within normal limits. Normal speech. PSYCHIATRIC: Appropriate mood and affect; insight and judgment normal. Procedures 11/25- S/P flexible cystoscopy with replacement of kyle catheter Date of Insertion: January 04, 2017 Line: PICC Side: Left A/P Problem List: (1) UTI (urinary tract infection) ICD Code: N39.0 Status: Resolved (2) Chronic pain ICD Code: G89.29 Status: Chronic (3) Type 2 diabetes mellitus ICD Code: E11.9 Status: Chronic (4) Morbidly obese ICD Code: E66.01 Status: Chronic (5) Depression ICD Code: F32.9 Status: Chronic (6) Pressure ulcer ICD Code: L89.90 Status: Chronic (7) Sleep apnea ICD Code: G47.30 Status: Chronic (8) Hypothyroidism ICD Code: E03.9 Status: Chronic (9) Acute hyperkalemia ICD Code: E87.5 Status: Acute Assessment and Plan 25 y/o male with a history of paraplegia, neurogenic bladder, HTN, chronic reoccurring DVT, chronic pain, LAKA, sleep apnea, CHF was brought into the ED as a felipe act because he was threatening staff and using a taser. At time of admission he reported feeling fatigued and experienced nausea and vomiting almost every night for the past month. Furthermore, he complained of hematuria and was told last year at [facility] he had gastric ulcers, but feels he is still bleeding. Last EGD done at [place] was 2012. He reported multiple wounds on his sacrum, back, right thigh and left hip, and has not had wound care in the 2 weeks preceding hospitalization. Patient also reported his Kyle catheter has not been replaced in 3 months and the last time required cystoscopy. Severe Sepsis (01/02/17 noted fever 102.1, leukocytosis 28.6k, BP 74/35, LISA source UTI, bacreremia E coli ) - recent h/o ESBL, MDRO. Patient also had diarrhea, C diff negative. - Leukocytosis WBC 28.6, temp 102 on 01/02. Now resolved, WBC 7.1 --> 6.7--> 11.0 - Renal function improved, creatinine 1.14 -->1.06 --> 0.94. Note: Patient refused on multiple occasions to change Kyle ( attempts by Dr Zhang and Dr Baez urology and was fired by urology as patient noncompliant). Kyle changed 01/04/17. Ditroban changed to 10 mg PO BID for spasms. Patient has been refusing medication stating that spasms are not the reason for leaking. Patient encouraged not to refuse and educated on importance of taking dose prescribed to assess effectiveness. Still refusing. - Blood cultures positive E coli on 01/02. Redrew blood cultures on 01/03 NGTD. - Repeat urine culture ordered for post Kyle catheter insertion 01/04. Mixed monique found, probable contaminants. - Ertapenem 1 g IV Q24hr until 01/15. ID signed off 01/07/17, no new recommendations. MRSA in the sputum possibly colonization. Acute kidney injury: suspect secondary to urinary tract infection, severe sepsis with end organ damage. Kyle changed 01/04/17. (note patient refused on multiple occasions to kyle changed). Neurogenic bladder - Blood pressure stable. Continue Midodrine. Continue Oxybutynin 5mg bid. - FC changed 01/04. - Appreciate nephrology following. 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 Nonproductive cough - Chest x-ray ordered and reviewed, examination quality is less than optimal due to patient body habitus. No acute finding appreciated. - Flonase daily x 14 days, end date 01/21/17. Diabetes Mellitus insulin dependent, uncontrolled A1c is 9.7 - Monitor Accu-Cheks, continue sliding scale insulin. - Continue Levemir 30 units subq in am and 32 units subq qhs. - Continue prandial insulin coverage, Novolog 4 units TID before each meal. - Continue to monitor and adjust the regimen as needed. - Encouraged compliance with ordered ADA diet. Chronic pain. Home medications baclofen, morphine, oxycodone. Continue Oramorph. - No IV pain medications at this time. Sleep apnea Insomnia - Continue CPAP at night, ordered for PEEP of 16.0 cm H2O. - Continue home medications Ambien PRN & Trazadone 200 qHS. Morbid obesity: BMI 97.9. Outpatient general surgery referral needed for possible surgical interventions. Chronic pressure ulcers: Wound care team following. Patient turning himself. Anxiety and depression: no homicidal or suicidal ideations - Was evaluated by psych in the ER, Felipe acted lifted, did not meet inpatient psychiatric and admission criteria. - Patient has long history of being on psychiatric medication, currently on Lexapro. Previously was on [place] and did not do well with mood on this. - Has been seen by psychiatrist 3 times now with no further recommendations, psychotherapy is not possible under these circumstances. Hyperlipidemia: Continue Lipitor. Hypothyroidism: Continue levothyroxine. Substance use: tox screen on admission significant for opiates, benzos, cannabinoids. Constipation: PRN laxatives. DVT prophylaxis: On Xarelto DNR status Palliative care following. d/w patient, nursing, and Dr. Cade. 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
[2017-01-17 20:00] VITALS: BP 132/58; PULSE 92; RESP 20; TEMP 97.2; O2SAT 95
[2017-01-17] MEDS: ESCITALOPRAM OXALATE 20 MG TAB PO SCH (20:25)
[2017-01-17] MEDS: RIVAROXABAN 20 MG TAB PO SCH (20:25)
[2017-01-17] MEDS: TOLTERODINE TARTRATE 4 MG CAP LA PO SCH (20:25)
[2017-01-18] MEDS: HYDROmorphone HCL PF 1 MG/ML VIAL IV PUSH PRN ×2 (01:44→17:46)
[2017-01-18 04:00] VITALS: BP 106/72; PULSE 82; RESP 20; TEMP 97.6; O2SAT 97
[2017-01-18] MEDS: MIDODRINE 5 MG TAB PO SCH ×3 (05:56→22:08)
[2017-01-18] MEDS: MORPHINE SULFATE 30 MG CONTROLLED RELEASE TAB PO SCH ×3 (05:56→22:07)
[2017-01-18] MEDS: LEVOTHYROXINE SODIUM 50 MCG TAB PO SCH (05:56)
[2017-01-18] MEDS: BACLOFEN 20 MG TAB PO PRN ×2 (05:56→13:50)
[2017-01-18] MEDS: MORPHINE SULFATE 100 MG CONTROLLED RELEASE TAB PO SCH ×3 (05:56→22:07)
[2017-01-18] MEDS: ALPRAZolam 1 MG TAB PO PRN (05:57)
[2017-01-18] MEDS: OXYBUTYNIN CHLORIDE 5 MG TAB PO SCH ×3 (06:00→22:08)
[2017-01-18] MEDS: INSULIN DETEMIR 100 UNITS/ML VIAL SQ SCH ×2 (06:04→22:05)
[2017-01-18] MEDS: INSULIN ASPART SUPPLEMENTAL SCALE SQ SCH ×4 (06:05→22:06)
[2017-01-18] MEDS: NYSTAT/DIPHENHY/LIDO MOUTHWASH (Adult) 120ML SWISH-SWAL SCH (07:00)
[2017-01-18] MEDS: INSULIN ASPART 1,000 UNITS/10 ML VIAL SQ SCH ×3 (08:00→17:00)
[2017-01-18] MEDS ORDERED: TRIAMCINOLONE ACETONIDE/PF 40 MG/ML OPTH VIAL ONE (08:51)
[2017-01-18] MEDS: NYSTATIN 100,000 U/GM PWD 15 GM BTL TOPICAL SCH (09:00)
[2017-01-18] MEDS: COLLAGENASE OINT 30 GM TUBE TOPICAL SCH (09:00)
[2017-01-18] MEDS: FLUTICASONE PROPIONATE 50 MCG/ACT 16 GM NASAL SPRAY EACH NARE SCH (09:00)
[2017-01-18] MEDS: POVIDONE IODINE 10% OINT 30 GM TUBE TOPICAL SCH (09:00)
[2017-01-18] MEDS: CLOTRIMAZOLE 1% CREAM 15 GM TOPICAL SCH ×2 (09:00→21:00)
--- NOTE | 2017-01-18 09:12 | HHI.PR ---
Subjective Remarks Follow-up visit paraplegic, chronic pain, neurogenic bladder with suprapubic catheter use, urosepsis. Patient seen and examined today. Patient is awake and talkative today. States that his pain is not well controlled, has been in chronic pain for quite sometime and the pain regimen has been ineffective while here. Does complain of continued catheter leaking and agreeable to try the Ditropan. Denies any recent fever, chills, cough, headache, shortness of breath , chest pain, abdominal pain, nausea, vomiting, diarrhea or dysuria. Objective Vitals Vital Signs Date Time Temp Pulse Resp B/P Pulse Ox O2 Delivery O2 Flow Rate FiO2 01/18/17 04:00 97.6 82 20 106/72 97 01/18/17 02:14 18 01/17/17 22:45 18 01/17/17 22:45 18 01/17/17 22:45 18 01/17/17 20:00 97.2 92 20 132/58 95 01/17/17 12:00 98.0 85 18 102/54 92 I/O 01/17/17 01/17/17 01/17/17 01/18/17 01/18/17 01/18/17 07:00 15:00 23:00 07:00 15:00 23:00 Intake Total 580 ml 900 ml 580 ml 720 ml Output Total 1200 ml 1200 ml 1000 ml Balance -620 ml -300 ml -420 ml 720 ml Intake Oral 580 ml 900 ml 580 ml 720 ml Output Urine Total 1200 ml 1200 ml 1000 ml # Voids 2 Imaging Last Impressions Chest X-Ray 01/05/17 0000 Signed Impressions: Service Date/Time: December 17:51 - CONCLUSION: Left arm PICC has his tip in the superior vena cava. Mild cardiomegaly with a globular configuration. Please see above. Elliott Livingston MD Objective Remarks GENERAL: Morbidly obese male, well-developed patient lying awake in bed. SKIN: Warm and dry. No rash. Right upper arm bruising. HEENT: Normocephalic. Atraumatic.Pupils equal and round. No scleral icterus. No injection or drainage. No nasal bleeding or discharge. Mucous membranes pink and moist. Neck supple. CARDIOVASCULAR: Regular rate and rhythm. S1, S2 noted. No murmur appreciated. RESPIRATORY: No accessory muscle use. Distant breath sounds noted, clear to auscultation. Breath sounds equal bilaterally. GASTROINTESTINAL: Abdomen soft, round, obese, non-tender, nondistended. Normoactive bowel sounds x4. MUSCULOSKELETAL: No obvious deformities. Extremities without clubbing, cyanosis , or edema. NEUROLOGICAL: Awake and alert. No obvious cranial nerve deficits. Motor grossly within normal limits. Normal speech. PSYCHIATRIC: Appropriate mood and affect; insight and judgment normal. Procedures 11/25- S/P flexible cystoscopy with replacement of kyle catheter Date of Insertion: January 04, 2017 Line: PICC Side: Left A/P Problem List: (1) UTI (urinary tract infection) ICD Code: N39.0 Status: Resolved (2) Chronic pain ICD Code: G89.29 Status: Chronic (3) Type 2 diabetes mellitus ICD Code: E11.9 Status: Chronic (4) Morbidly obese ICD Code: E66.01 Status: Chronic (5) Depression ICD Code: F32.9 Status: Chronic (6) Pressure ulcer ICD Code: L89.90 Status: Chronic (7) Sleep apnea ICD Code: G47.30 Status: Chronic (8) Hypothyroidism ICD Code: E03.9 Status: Chronic (9) Acute hyperkalemia ICD Code: E87.5 Status: Acute Assessment and Plan 25 y/o male with a history of paraplegia, neurogenic bladder, HTN, chronic reoccurring DVT, chronic pain, LAKA, sleep apnea, CHF was brought into the ED as a felipe act because he was threatening staff and using a taser. At time of admission he reported feeling fatigued and experienced nausea and vomiting almost every night for the past month. Furthermore, he complained of hematuria and was told last year at [facility] he had gastric ulcers, but feels he is still bleeding. Last EGD done at [place] was 2012. He reported multiple wounds on his sacrum, back, right thigh and left hip, and has not had wound care in the 2 weeks preceding hospitalization. Patient also reported his Kyle catheter has not been replaced in 3 months and the last time required cystoscopy. Severe Sepsis (01/02/17 noted fever 102.1, leukocytosis 28.6k, BP 74/35, LISA source UTI, bacreremia E coli ) - recent h/o ESBL, MDRO. Patient also had diarrhea, C diff negative. - Leukocytosis WBC 28.6, temp 102 on 01/02. Now resolved, WBC 7.1 --> 6.7--> 11.0 - Renal function improved, creatinine 1.14 -->1.06 --> 0.94. Note: Patient refused on multiple occasions to change Kyle ( attempts by Dr Zhang and Dr Baez urology and was fired by urology as patient noncompliant). Kyle changed 01/04/17. Ditropan 10 mg PO BID for spasms. Patient agreeable today to try the Ditropan. - Blood cultures positive E coli on 01/02. Redrew blood cultures on 01/03 NGTD. - Repeat urine culture ordered for post Kyle catheter insertion 01/04. Mixed monique found, probable contaminants. - Ertapenem 1 g IV Q24hr until 01/15. ID signed off 01/07/17, no new recommendations. MRSA in the sputum possibly colonization. Acute kidney injury: suspect secondary to urinary tract infection, severe sepsis with end organ damage. Kyle changed 01/04/17. (note patient refused on multiple occasions to kyle changed). Neurogenic bladder - Blood pressure stable. Continue Midodrine. Continue Oxybutynin 5mg bid. - FC changed 01/04. - Appreciate nephrology following. 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 Nonproductive cough - Chest x-ray ordered and reviewed, examination quality is less than optimal due to patient body habitus. No acute finding appreciated. - Flonase previously ordered, patient refusing, therefore discontinued. Diabetes Mellitus insulin dependent, uncontrolled A1c is 9.7 - Monitor Accu-Cheks, continue sliding scale insulin. - Continue Levemir 30 units subq in am and 32 units subq qhs. - Continue prandial insulin coverage, Novolog 5 units TID before each meal. - Continue to monitor and adjust the regimen as needed. - Encouraged compliance with ordered ADA diet. Chronic pain. Home medications baclofen, morphine, oxycodone. Continue Oramorph. Dilaudid 1.5 mg IV Q4hr PRN pain with linen change. Patient stating Dilaudid is not effective for pain. Will ask palliative care to revisit patient to develop goals of care due to patient refusing most medical orders and advice on pain management, appreciate input. Sleep apnea Insomnia - Continue CPAP at night, ordered for PEEP of 16.0 cm H2O. - Continue home medications Ambien PRN & Trazadone 200 qHS. Morbid obesity: BMI 98.3. Outpatient general surgery referral needed for possible surgical interventions. Chronic pressure ulcers: Wound care team following. Patient turning himself. Anxiety and depression: no homicidal or suicidal ideations - Was evaluated by psych in the ER, Felipe acted lifted, did not meet inpatient psychiatric and admission criteria. - Patient has long history of being on psychiatric medication, currently on Lexapro. Previously was on [place] and did not do well with mood on this. - Has been seen by psychiatrist 3 times now with no further recommendations, psychotherapy is not possible under these circumstances. Hyperlipidemia: Continue Lipitor. Hypothyroidism: Continue levothyroxine. Substance use: tox screen on admission significant for opiates, benzos, cannabinoids. Constipation: PRN laxatives. DVT prophylaxis: On Xarelto DNR status Palliative care following. d/w patient, nursing, and Dr. Cade. 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
[2017-01-18] MEDS: buPROPion HCL 150 MG SUSTAINED RELEASE TAB PO SCH (09:44)
[2017-01-18] MEDS: ATORVASTATIN 40 MG TAB PO SCH (09:44)
[2017-01-18] MEDS: FAMOTIDINE 20 MG TAB PO SCH (09:44)
[2017-01-18] MEDS: ASCORBIC ACID 500 MG TAB PO SCH ×2 (09:44→22:07)
[2017-01-18] MEDS: LACTOBACILLUS ACIDOPHILUS TAB PO SCH ×3 (09:44→17:41)
[2017-01-18] MEDS: DOCUSATE SODIUM 50 MG/SENNA 8.6 MG TAB PO SCH ×2 (09:45→22:07)
[2017-01-18] MEDS: GABAPENTIN 300 MG CAP PO SCH ×3 (09:51→17:40)
[2017-01-18 10:21] LABS: AUTOMATED NEUTROPHIL # 7.4 TH/MM3 (1.8-7.7); BASOPHIL # 0.1 TH/MM3 (0-0.2); BASOPHIL % 0.8 % (0.0-2.0); EOSINOPHIL # 0.4 TH/MM3 (0-0.4); EOSINOPHIL % 3.8 % (0.0-4.0); HEMATOCRIT 31.7 % (39.0-51.0); HEMO FLAGS DIFF FINAL; LYMPH % 20.8 % (9.0-44.0); LYMPHOCYTE # 2.3 TH/MM3 (1.0-4.8); MEAN CELL VOLUME 75.1 FL (80.0-100.0); MONO % 6.8 % (0.0-8.0); NEUT % 67.8 % (16.0-70.0); PLATELET COUNT 373 TH/MM3 (150-450); RED BLOOD COUNT 4.22 MIL/MM3 (4.50-5.90); RED CELL DISTRIBUTION WIDTH 22.1 % (11.6-17.2); WHITE BLOOD COUNT 10.9 TH/MM3 (4.0-11.0)
[2017-01-18 10:43] LABS: POTASSIUM 4.4 MEQ/L (3.5-5.1)
[2017-01-18 12:00] VITALS: BP 81/59; PULSE 100; RESP 16; TEMP 98.5; O2SAT 92
[2017-01-18 15:00] VITALS: BP 86/45; PULSE 70; RESP 16; TEMP 97.9; O2SAT 92
[2017-01-18 20:00] VITALS: BP 105/50; PULSE 99; RESP 22; TEMP 97.9; O2SAT 94
[2017-01-18] MEDS: TOLTERODINE TARTRATE 4 MG CAP LA PO SCH (22:06)
[2017-01-18] MEDS: ESCITALOPRAM OXALATE 20 MG TAB PO SCH (22:07)
[2017-01-18] MEDS: RIVAROXABAN 20 MG TAB PO SCH (22:07)
[2017-01-18] MEDS: traZODone HCL 100 MG TAB PO SCH (22:08)
[2017-01-19] VITALS: BP 114/53; PULSE 93; RESP 20; TEMP 96.9; O2SAT 93
[2017-01-19] MEDS: OXYBUTYNIN CHLORIDE 5 MG TAB PO SCH ×2 (05:40→15:42)
[2017-01-19] MEDS: LEVOTHYROXINE SODIUM 50 MCG TAB PO SCH (05:40)
[2017-01-19] MEDS: MIDODRINE 5 MG TAB PO SCH ×2 (05:40→15:42)
[2017-01-19] MEDS: MORPHINE SULFATE 30 MG CONTROLLED RELEASE TAB PO SCH (05:40)
[2017-01-19] MEDS: MORPHINE SULFATE 100 MG CONTROLLED RELEASE TAB PO SCH ×2 (05:40→15:43)
[2017-01-19] MEDS: INSULIN DETEMIR 100 UNITS/ML VIAL SQ SCH (05:41)
[2017-01-19] MEDS: INSULIN ASPART SUPPLEMENTAL SCALE SQ SCH ×4 (05:41→21:00)
[2017-01-19] MEDS: HYDROmorphone HCL PF 1 MG/ML VIAL IV PUSH PRN ×4 (05:42→17:48)
[2017-01-19] MEDS: POVIDONE IODINE 10% OINT 30 GM TUBE TOPICAL SCH (09:00)
[2017-01-19] MEDS: COLLAGENASE OINT 30 GM TUBE TOPICAL SCH (09:00)
[2017-01-19] MEDS: FAMOTIDINE 20 MG TAB PO SCH (10:25)
[2017-01-19] MEDS: ATORVASTATIN 40 MG TAB PO SCH (10:25)
[2017-01-19] MEDS: LACTOBACILLUS ACIDOPHILUS TAB PO SCH ×3 (10:25→17:47)
[2017-01-19] MEDS: GABAPENTIN 300 MG CAP PO SCH ×3 (10:25→17:47)
[2017-01-19] MEDS: DOCUSATE SODIUM 50 MG/SENNA 8.6 MG TAB PO SCH (10:25)
[2017-01-19] MEDS: ASCORBIC ACID 500 MG TAB PO SCH (10:25)
[2017-01-19] MEDS: buPROPion HCL 150 MG SUSTAINED RELEASE TAB PO SCH (10:26)
[2017-01-19] MEDS: INSULIN ASPART 1,000 UNITS/10 ML VIAL SQ SCH ×3 (10:30→17:54)
[2017-01-19] MEDS: CLOTRIMAZOLE 1% CREAM 15 GM TOPICAL SCH (10:30)
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
[2017-01-19 12:00] VITALS: BP 116/59; PULSE 68; RESP 20; TEMP 97.6; O2SAT 95
[2017-01-19] MEDS: BACLOFEN 20 MG TAB PO PRN ×2 (12:47→18:44)
[2017-01-19] MEDS: MORPHINE SULFATE 60 MG CONTROLLED RELEASE TAB PO SCH (15:43)
[2017-01-19] MEDS: ALPRAZolam 1 MG TAB PO PRN (15:47)
[2017-01-19 20:00] VITALS: BP 124/68; PULSE 108; RESP 22; TEMP 98.8; O2SAT 94
[2017-01-20] VITALS (9 sets, daily range): BP systolic 116–128; BP diastolic 53–68; PULSE 105–128; RESP 16–22; TEMP 99.1–100.9; O2SAT 89–99
[2017-01-20] MEDS: TOLTERODINE TARTRATE 4 MG CAP LA PO SCH ×2 (01:16→21:00)
[2017-01-20] MEDS: ESCITALOPRAM OXALATE 20 MG TAB PO SCH ×2 (01:17→20:20)
[2017-01-20] MEDS: ASCORBIC ACID 500 MG TAB PO SCH ×3 (01:17→20:21)
[2017-01-20] MEDS: DOCUSATE SODIUM 50 MG/SENNA 8.6 MG TAB PO SCH ×3 (01:17→20:20)
[2017-01-20] MEDS: RIVAROXABAN 20 MG TAB PO SCH ×2 (01:17→20:21)
[2017-01-20] MEDS: OXYBUTYNIN CHLORIDE 5 MG TAB PO SCH ×4 (01:18→22:00)
[2017-01-20] MEDS: MORPHINE SULFATE 100 MG CONTROLLED RELEASE TAB PO SCH ×3 (01:18→15:22)
[2017-01-20] MEDS: CLOTRIMAZOLE 1% CREAM 15 GM TOPICAL SCH ×3 (01:18→21:00)
[2017-01-20] MEDS: MIDODRINE 5 MG TAB PO SCH ×4 (01:19→22:00)
[2017-01-20] MEDS: traZODone HCL 100 MG TAB PO SCH (01:19)
[2017-01-20] MEDS: MORPHINE SULFATE 60 MG CONTROLLED RELEASE TAB PO SCH ×3 (01:19→15:22)
[2017-01-20] MEDS: HYDROmorphone HCL PF 1 MG/ML VIAL IV PUSH PRN ×4 (01:20→18:11)
[2017-01-20] MEDS: INSULIN DETEMIR 100 UNITS/ML VIAL SQ SCH ×3 (01:21→22:16)
[2017-01-20] MEDS: BACLOFEN 20 MG TAB PO PRN ×3 (05:15→18:10)
[2017-01-20] MEDS: ALPRAZolam 1 MG TAB PO PRN (05:15)
[2017-01-20] MEDS: INSULIN ASPART SUPPLEMENTAL SCALE SQ SCH ×4 (06:07→22:17)
[2017-01-20] MEDS: LEVOTHYROXINE SODIUM 50 MCG TAB PO SCH (06:08)
[2017-01-20] MEDS: POVIDONE IODINE 10% OINT 30 GM TUBE TOPICAL SCH (09:00)
[2017-01-20] MEDS: buPROPion HCL 150 MG SUSTAINED RELEASE TAB PO SCH (09:54)
[2017-01-20] MEDS: LACTOBACILLUS ACIDOPHILUS TAB PO SCH ×3 (09:54→17:30)
[2017-01-20] MEDS: ATORVASTATIN 40 MG TAB PO SCH (09:54)
[2017-01-20] MEDS: GABAPENTIN 300 MG CAP PO SCH ×3 (09:54→17:31)
[2017-01-20] MEDS: FAMOTIDINE 20 MG TAB PO SCH (09:54)
[2017-01-20] MEDS: INSULIN ASPART 1,000 UNITS/10 ML VIAL SQ SCH ×3 (09:55→17:32)
[2017-01-20] MEDS: CLOTRIMAZOLE 1% CREAM 15 GM TOPICAL PRN ×3 (12:08→22:18)
[2017-01-20] MEDS: COLLAGENASE OINT 30 GM TUBE TOPICAL SCH (12:08)
--- NOTE | 2017-01-20 14:06 | PD.WCN.NOT ---
Wound Consult Description: Patient seen on for follow up of pressure injuries to R heel, R lateral heel, L posterior thigh, and L buttock. Patient also has new consult for Wound to R lateral malleolus. Patient leaned forward on bed for wound assessment. Removed adhesive foam dressings on L buttock and posterior L thigh to reveal pressure injury to L buttock that continues to improve.L buttock wound presents with 100% red granulated tissueand minimal sanguinous drainage without odor. Wound measurements are as follows: 2 x 1 x 2. Wound is a stage 3 pressure injury.Periwound presents with denuded skin and diffuse moisture related partial thickness skin loss. L posterior thigh wound presents as closed with surrounding diffuse partial thickness skin loss and denuded skin that is moisture related to Periwound. Cleansed wound to L buttock with normal saline and applied bogdan thick Santyl ointment to wound bed loosely packed with normal saline moistened 2x2 gauze.Wound to L buttock is noted with smaller measurements than previously assessed .Wound depth continues to improve. R heel and R lateral heel deep tissue injuries have resolved. Assessed new wounds to patient on R lateral malleolus , L lateral thigh and L stump. Removed adhesive foam dressing in place over R lateral malleolus to reveal full thickness wound, possibly caused from contact with side rail on bed. Wound bed presents with ~80% red tissue and ~20% yellow slough.Wound has minimal sero-sanguinous drainage without odor. Wound margins noted with loosely adherent skin between 7 and 9 o'clock and otherwise unremarkable. Wound measurements are as follows: 3.3x 3x slough. Cleansed wound with normal saline. Approximated loosely adherent skin over wound bed. Covered with adhesive foam dressing. R lateral thigh wound presents with 100% coverage of adherent yellow slough. Wound measurements are as follows : 2.2 x 3x slough. Wound appears to be friction and moisture related.Wound has no active drainage and appears dry without odor. Cleansed wound with normal saline. Applied skin prep to periwound and applied bordered gauze. R lateral stump wound presents with 100% adherent yellow/ brown slough Wound measurements are as follows: 5.2 x 1.2 x slough.Wound has no active drainage and appears dry without odor. Etiology appears to be moisture and friction related. Cleansed wound with normal saline.Applied skin prep to periwound and covered with bordered gauze. Communicated with: RN Windy corcoran and Doctor Rayo Recommendation: Please cleanse wounds to R lateral malleolus, L lateral thigh, L stump with normal saline and apply bogdan thick coverage of Santyl ointment and cover with dry cover dressing change daily. Please continue dressing changes to L buttock with santyl. Please loosely pack wound with slightly moistened Maxorb II dressing and cover with dry cover dressing,Change dressing daily. Please do not apply foam dressings. to L buttock. Ostomy Date of Surgery: Nov 25, 2016 Rochelle Huitron [facility] Jan 20, 2017 14:06
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
[2017-01-21] VITALS (9 sets, daily range): BP systolic 98–187; BP diastolic 54–111; PULSE 100–135; RESP 14–22; TEMP 97.2–101.5; O2SAT 87–91
[2017-01-21] MEDS: ONDANSETRON HCL 4 MG/2 ML VIAL IV PUSH PRN (01:38)
[2017-01-21] MEDS: traZODone HCL 100 MG TAB PO SCH ×2 (01:39→22:56)
[2017-01-21] MEDS: MORPHINE SULFATE 60 MG CONTROLLED RELEASE TAB PO SCH ×4 (01:39→22:20)
[2017-01-21] MEDS: MORPHINE SULFATE 100 MG CONTROLLED RELEASE TAB PO SCH ×4 (01:40→22:19)
[2017-01-21] MEDS: ZOLPIDEM TARTRATE 5 MG TAB PO PRN ×2 (01:51→22:57)
[2017-01-21] MEDS: MIDODRINE 5 MG TAB PO SCH ×3 (05:28→22:20)
[2017-01-21] MEDS: OXYBUTYNIN CHLORIDE 5 MG TAB PO SCH ×3 (05:28→20:54)
[2017-01-21] MEDS: LEVOTHYROXINE SODIUM 50 MCG TAB PO SCH (05:29)
[2017-01-21] MEDS: ALPRAZolam 1 MG TAB PO PRN ×2 (05:30→22:57)
[2017-01-21] MEDS: INSULIN ASPART SUPPLEMENTAL SCALE SQ SCH ×4 (05:58→21:00)
[2017-01-21] MEDS: INSULIN DETEMIR 100 UNITS/ML VIAL SQ SCH ×2 (05:58→22:18)
[2017-01-21] MEDS: ACETAMINOPHEN 325 MG TAB PO PRN (07:01)
[2017-01-21] MEDS: HYDROmorphone HCL PF 1 MG/ML VIAL IV PUSH PRN ×3 (07:02→18:33)
[2017-01-21] MEDS: SODIUM CHLORIDE 0.9% FLUSH 10 ML FLUSH IV FLUSH PRN (07:02)
[2017-01-21] MEDS: CLOTRIMAZOLE 1% CREAM 15 GM TOPICAL SCH ×2 (09:00→20:54)
[2017-01-21] MEDS: POVIDONE IODINE 10% OINT 30 GM TUBE TOPICAL SCH (09:00)
[2017-01-21] MEDS: buPROPion HCL 150 MG SUSTAINED RELEASE TAB PO SCH (09:00)
[2017-01-21] MEDS ORDERED: ACETAMINOPHEN 325 MG TAB PO PRN (09:15)
[2017-01-21] MEDS ORDERED: SODIUM CHLOR 0.9% 1000 ML INJ 1,000 ML IV ONE (09:15)
[2017-01-21] MEDS ORDERED: ACETAMINOPHEN 1000 MG/100 ML VIAL IV ONE (09:15)
--- NOTE | 2017-01-21 09:46 | RADRPT ---
EXAM DATE/TIME: 01/21/2017 09:00 [facility] COMPARISON: CHEST SINGLE AP, January 05, 2017, 17:51. INDICATIONS : Fever. MEDICAL HISTORY : None. SURGICAL HISTORY : None. ENCOUNTER: Initial ACUITY: 1 day PAIN SCORE: 0/10 LOCATION: Chest FINDINGS: Examination is severely limited by the patient's body habitus. There is no obvious pneumothorax or a lveolar consolidation. Pulmonary vascularity appears mildly congested. CONCLUSION: Severely limited examination as described above. Shaggy Weldon MD FACR on January 21, 2017 at 9:41 Board Certified Radiologist. This report was verified electronically.
[2017-01-21] MEDS: INSULIN ASPART 1,000 UNITS/10 ML VIAL SQ SCH ×3 (09:52→18:24)
[2017-01-21] MEDS: SODIUM CHLOR 0.9% 1000 ML INJ 1,000 ML IV SCH ×2 (09:54→18:20)
[2017-01-21] MEDS: ASCORBIC ACID 500 MG TAB PO SCH ×2 (09:55→20:53)
[2017-01-21] MEDS: GABAPENTIN 300 MG CAP PO SCH ×3 (09:55→18:20)
[2017-01-21] MEDS: LACTOBACILLUS ACIDOPHILUS TAB PO SCH ×3 (09:55→18:20)
[2017-01-21] MEDS: DOCUSATE SODIUM 50 MG/SENNA 8.6 MG TAB PO SCH ×2 (09:55→20:53)
[2017-01-21] MEDS: ATORVASTATIN 40 MG TAB PO SCH (09:55)
[2017-01-21] MEDS: FAMOTIDINE 20 MG TAB PO SCH (09:55)
[2017-01-21 10:05] LABS: BLOOD GAS BASE EXCESS -2.4 mmol/L (-2-2); BLOOD GAS CARBOXYHEMOGLOBIN 1.7 % (0-4); BLOOD GAS HCO3 25 mmol/L (22-26); BLOOD GAS METHEMOGLOBIN 0.8 % (0-2); BLOOD GAS O2 HGB SATURATION 82 % (90-100); BLOOD GAS OXYGEN CONTENT 11.4 Vol % (12.0-20.0); BLOOD GAS PCO2 64 mmHg (38-42); BLOOD GAS PO2 59 mmHg (61-120); BLOOD GAS TOTAL HGB 9.9 G/DL (12.0-16.0); TEMP CORR TO 98.6
[2017-01-21 10:06] LABS: CRITICAL VALUE YES; DRAW SITE RT RADIAL; LITER FLOW 3 L/M; NUMBER OF ARTERIAL PUNCTURES 1; OXYGEN DEVICE NASAL CANNULA; STAT YES; ULNAR PULSE PRESENT
[2017-01-21] MEDS: CLOTRIMAZOLE 1% CREAM 15 GM TOPICAL PRN ×2 (10:07→20:54)
[2017-01-21] MEDS: COLLAGENASE OINT 30 GM TUBE TOPICAL SCH (10:08)
[2017-01-21 10:26] LABS: AUTOMATED NEUTROPHIL # 13.1 TH/MM3 (1.8-7.7); BASOPHIL # 0.1 TH/MM3 (0-0.2); BASOPHIL % 0.6 % (0.0-2.0); EOSINOPHIL % 0.1 % (0.0-4.0); HEMATOCRIT 28.5 % (39.0-51.0); HEMO FLAGS DIFF FINAL; LYMPH % 7.8 % (9.0-44.0); LYMPHOCYTE # 1.3 TH/MM3 (1.0-4.8); MEAN CELL VOLUME 75.7 FL (80.0-100.0); MEAN CORPUSCULAR HEMOGLOBIN 23.4 PG (27.0-34.0); MEAN CORPUSCULAR HGB CONC 30.9 % (32.0-36.0); MONO % 9.8 % (0.0-8.0); NEUT % 81.7 % (16.0-70.0); PLATELET COUNT 282 TH/MM3 (150-450); RED BLOOD COUNT 3.77 MIL/MM3 (4.50-5.90); RED CELL DISTRIBUTION WIDTH 21.9 % (11.6-17.2); WHITE BLOOD COUNT 16.1 TH/MM3 (4.0-11.0)
[2017-01-21 11:07] LABS: ALKALINE PHOSPHATASE 135 U/L (45-117); ALT (GPT) 16 U/L (12-78); ANION GAP 10 MEQ/L (5-15); AST (GOT) 17 U/L (15-37); BICARBONATE 25.7 MEQ/L (21.0-32.0); BLOOD UREA NITROGEN 38 MG/DL (7-18); CHLORIDE 99 MEQ/L (98-107); GLOMERULAR FILTRATION RATE 43 ML/MIN (>89); POTASSIUM 5.1 MEQ/L (3.5-5.1); SODIUM (NA) 135 MEQ/L (136-145); TOTAL BILIRUBIN ADULT 0.3 MG/DL (0.2-1.0)
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
[2017-01-21] MEDS ORDERED: Vancomycin Consult Pharmacy 1 EA OTHER SCH (11:30)
[2017-01-21] MEDS ORDERED: MISCELLANEOUS PHARMACY INFORMATION XX PRN (13:30)
[2017-01-21] MEDS: BACLOFEN 20 MG TAB PO PRN (15:23)
[2017-01-21] MEDS: VANCOMYCIN INJ 2,000 MG in SODIUM CHLORID 0.9% 500 ML INJ 500 ML IV SCH (15:24)
--- NOTE | 2017-01-21 16:34 | HHI.PR ---
Subjective Remarks The patient was seen earlier today. Patient is noted with temp 101, tachycardia, UA reviewed possible UTI. The patient complains of not able to urinate. Also for a sulfa making. He has fevers no chills. He denies pain. No vomiting. Denies Diarrhea /constipation Objective Vitals Vital Signs Date Time Temp Pulse Resp B/P Pulse Ox O2 Delivery O2 Flow Rate FiO2 01/21/17 14:26 141/57 01/21/17 12:00 99.5 111 15 187/111 88 01/21/17 09:53 89 40 01/21/17 09:03 89 21 01/21/17 08:00 101.5 135 15 88 01/21/17 00:00 100.4 117 22 123/77 91 01/20/17 20:00 100.9 121 20 121/62 92 01/20/17 17:50 97 Nasal Cannula 3.00 I/O 01/20/17 01/20/17 01/20/17 01/21/17 01/21/17 01/21/17 07:00 15:00 23:00 07:00 15:00 23:00 Intake Total 320 ml 1500 ml 840 ml 840 ml 1000 ml Output Total 0 ml 50 ml Balance 320 ml 1500 ml 840 ml 790 ml 1000 ml Intake Oral 320 ml 1500 ml 840 ml 840 ml 1000 ml IV Total 0 ml Output Urine Total 0 ml 50 ml # Voids 1 2 1 3 # Bowel Movements 0 1 0 0 0 Result Diagram: 01/21/17 1000 01/21/17 1000 Imaging Last Impressions Chest X-Ray 01/21/17 0000 Signed Impressions: Service Date/Time: Saturday, January 21, 2017 09:00 - CONCLUSION: Severely limited examination as described above. Shaggy Weldon MD FACR Objective Remarks GENERAL: Young morbidly obese 26 yo male, alert and orieted x3. SKIN: Warm and dry. HEAD: Atraumatic. Normocephalic. EYES: Left eyelid inflamed, redness and swelling. Pupils equal and round. No scleral icterus. No injection or drainage. ENT: No nasal bleeding or discharge. Mucous membranes pink and moist. NECK: Trachea midline. No JVD. CARDIOVASCULAR: Regular rate and rhythm. RESPIRATORY: No accessory muscle use. Clear to auscultation. Breath sounds equal bilaterally. GASTROINTESTINAL: Abdomen soft, obese, non-tender, nondistended. + BSx4Q. : Kyle in with cloudy, dark urine. MUSCULOSKELETAL: Extremities without clubbing, cyanosis, or edema. No obvious deformities. NEUROLOGICAL: Awake and alert. No obvious cranial nerve deficits. Motor grossly within normal limits UE. Five out of 5 muscle strength in the arms. Left BKA. Normal speech. PSYCHIATRIC: Appropriate mood and affect; insight and judgment normal. Procedures 11/25- S/P flexible cystoscopy with replacement of kyle catheter Date of Insertion: January 04, 2017 Line: PICC Side: Left A/P Problem List: (1) UTI (urinary tract infection) ICD Code: N39.0 Status: Resolved (2) Chronic pain ICD Code: G89.29 Status: Chronic (3) Type 2 diabetes mellitus ICD Code: E11.9 Status: Chronic (4) Morbidly obese ICD Code: E66.01 Status: Chronic (5) Depression ICD Code: F32.9 Status: Chronic (6) Pressure ulcer ICD Code: L89.90 Status: Chronic (7) Sleep apnea ICD Code: G47.30 Status: Chronic (8) Hypothyroidism ICD Code: E03.9 Status: Chronic (9) Acute hyperkalemia ICD Code: E87.5 Status: Acute Assessment and Plan 25 y/o male with a history of paraplegia, neurogenic bladder, HTN, chronic reoccurring DVT, chronic pain, LAKA, sleep apnea, CHF was brought into the ED as a felipe act because he was threatening staff and using a taser. At time of admission he reported feeling fatigued and experienced nausea and vomiting almost every night for the past month. Furthermore, he complained of hematuria and was told last year at [facility] he had gastric ulcers, but feels he is still bleeding. Last EGD done at [facility] was 2012. He reported multiple wounds on his sacrum, back, right thigh and left hip, and has not had wound care in the 2 weeks preceding hospitalization. Patient also reported his Kyle catheter has not been replaced in 3 months and the last time required cystoscopy. Recurrent sepsis 01/21/17 ( patient is noncompliant with meds and recommendations of Kyle change by urology) noted with temp 101, tachycardia, poss UTI. H/o esbl. Blood cx, urine cx obtained. CxR no acute findings. BP is stable at this time. however monitor closely. No urine output. Discussed with Dr Baez nephrology he will come and eval patient today.However the patient is with persistent noncompliance with recommendations from urology. He did not use ditropan, he is also refusing on/ off kyle change. Started meropenem. IV . Reconsult ID Severe Sepsis (01/02/17 noted fever 102.1, leukocytosis 28.6k, BP 74/35, LISA source UTI, bacreremia E coli )- recent h/o ESBL, MDRO. Patient also had diarrhea, C diff negative Leukocytosis WBC 28.6, temp 102 on 01/02. trending down Creatinine increase from 0.74 to 1.6on 01/02 and worsening. Note: Patient refused on multiple occasions to change kyle ( attempts by Dr Zhang and Dr Baez urology and was fired by urology as patient noncompliant). Patient agrees to kyle change, spoke with Dr Zhang urology, appreciate recommendations. Kyle changes 01/04/17. Systolic BP currently 90/40. Lactic acid normal. Blood cultures positive E coli Repeat urine culture ordered for post Kyle catheter insertion 01/[address] Zhang, appreciate recommendations. Sputum culture ordered. Ertapenem changed to meropenem per ID . ID consulted, appreciate recommendations. NS 1L Bolus x4 as noted SBP 74/35 01/02/17. Monitor BP closely continue with fluid resuscitation. BP better controlled. Continue IVF NS 100 ml/hr. Monitor BP closely. Noted with low grade fevers (100 F) 01/20/17 . Will check UA. Patient still with Kyle leaking. He is previously refused Ditropan. Now he is taking Ditropan. If no improvement while on Ditropan will reconsult urology. Acute kidney injury: suspect secondary to urinary tract infection, severe sepsis with end organ damage. Kyle changed 01/04/17. (note patient refused on multiple occasions to kyle changed). Anticipoate kidney function to imprpve after kyle replaces. Also nephrology is consulted. Neurogenic bladder Blood pressure stable. Continue Midodrine. Continue Oxybutynin 5mg bid. Status post Levaquin and Ertapenem for UTI. Kyle catheter place by Dr. Meraz on 11/25. Urology reconsulted on 01/01 for replacement of Ykle catheter. Status post urine cath leakage, urology was reconsulted on 12/14, per patient, intermittent leaking. At that time patient declined catheter exchange with no urological intervention. Blood cultures NGTD. Avoid nephrotoxins Trend creatinine Receiving bolus 1L NS, continue fluid resuscitation. Start IVF NS 100 ml/hr. If not responding to fluid resuscitation and if LA > 4 will consult remote sensing research scientist for evaluation. LA is normal. BP better after receiving total of 4L NS. Fair urine OP. Kidney indices however getting worse, will consult nephrology for evaluation. Kyle changed 01/04, anticipate kidney function to improve. Nonproductive cough Chest x-ray ordered and reviewed, examination quality is less than optimal due to patient body habitus. No acute finding appreciated. Diabetes Mellitus insulin dependent, uncontrolled A1c is 9.7 Monitor Accu-Cheks, continue sliding scale insulin. Continue Levemir 30 units subq in am and 32 units subq qhs. Start prandial insulin coverage, Novolog 3 units TID before each meal. Continue to monitor and adjust the regimen as needed. Encouraged compliance with ordered ADA diet. Chronic pain. Home medications baclofen, morphine, oxycodone. Continue Oramorph. Sleep apnea Insomnia 25 y/o male with a history of paraplegia, neurogenic bladder, HTN, chronic reoccurring DVT, chronic pain, LAKA, sleep apnea, CHF was brought into the ED as a felipe act because he was threatening staff and using a taser. At time of admission he reported feeling fatigued and experienced nausea and vomiting almost every night for the past month. Furthermore, he complained of hematuria and was told last year at [facility] he had gastric ulcers, but feels he is still bleeding. Last EGD done at [facility] was 2012. He reported multiple wounds on his sacrum, back, right thigh and left hip, and has not had wound care in the 2 weeks preceding hospitalization. Patient also reported his Kyle catheter has not been replaced in 3 months and the last time required cystoscopy. Severe Sepsis (01/02/17 noted fever 102.1, leukocytosis 28.6k, BP 74/35, LISA source UTI, bacreremia E coli ) - recent h/o ESBL, MDRO. Patient also had diarrhea, C diff negative. - Leukocytosis WBC 28.6, temp 102 on 01/02. Now resolved, WBC 7.1 --> 6.7--> 11.0 - Renal function improved, creatinine 1.14 -->1.06 --> 0.94. Note: Patient refused on multiple occasions to change Kyle ( attempts by Dr Zhang and Dr Baez urology and was fired by urology as patient noncompliant). Kyle changed 01/04/17. Ditropan 10 mg PO BID for spasms. - Blood cultures positive E coli on 01/02. Redrew blood cultures on 01/03 NGTD. - Repeat urine culture ordered for post Kyle catheter insertion 01/04. Mixed monique found, probable contaminants. - Ertapenem 1 g IV Q24hr until 01/15. ID signed off 01/07/17, no new recommendations. MRSA in the sputum possibly colonization. Acute kidney injury: suspect secondary to urinary tract infection, severe sepsis with end organ damage. Kyle changed 01/04/17. (note patient refused on multiple occasions to kyle changed). Neurogenic bladder - Blood pressure stable. Continue Midodrine. Continue Oxybutynin 5mg bid. - FC changed 01/04. - Appreciate nephrology following. - Improved FREIGHT HUSTLER 1.14 --> 1.06 --> 0.94 --> 1.1 Diabetes Mellitus insulin dependent, uncontrolled A1c is 9.7 - Monitor Accu-Cheks, continue sliding scale insulin. - Continue Levemir 30 units subq in am and 32 units subq qhs. - Continue prandial insulin coverage, increase Novolog 7 units TID before each meal. - Continue to monitor and adjust the regimen as needed. - Encouraged compliance with ordered ADA diet. Chronic pain. Home medications baclofen, morphine, oxycodone. Dr. Romo, palliative care, saw patient and increasing his Oramorph to 160 mg every 8 hours , and will clarifying his hydromorphone and oxycodone orders to eliminate any restrictions based on blood pressure. Dilaudid 1.5 mg IV Q4hr PRN. Monitor pain. Sleep apnea Insomnia - Continue CPAP at night, ordered for PEEP of 16.0 cm H2O. - Continue home medications Ambien PRN & Trazadone 200 qHS. Morbid obesity: BMI 98.9. Outpatient general surgery referral needed for possible surgical interventions. Chronic pressure ulcers: Wound care team following. Requested to revisit patient regarding recommendations to right lateral ankle wound, appreciate recommendations. Patient turning himself. Anxiety and depression: no homicidal or suicidal ideations - Was evaluated by psych in the ER, Felipe acted lifted, did not meet inpatient psychiatric and admission criteria. - Patient has long history of being on psychiatric medication, currently on Lexapro. Previously was on Ledbetter and did not do well with mood on this. - Has been seen by psychiatrist 3 times now with no further recommendations, psychotherapy is not possible under these circumstances. - Palliative care following and saw patient today 01/19/17. Hyperlipidemia: Continue Lipitor. Hypothyroidism: Continue levothyroxine. Substance use: tox screen on admission significant for opiates, benzos, cannabinoids. Constipation: PRN laxatives. DVT prophylaxis: On Xarelto DNR status Palliative care following. d/w patient, nurse Discharge Planning Pending as patient with sepsis. 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
--- NOTE | 2017-01-21 17:26 | PD.CONS ---
HPI Service Urology Consult Requested By Primary Care Physician No Primary Care Physician Diagnosis: (1) UTI (urinary tract infection) ICD Code: N39.0 (2) Chronic pain ICD Code: G89.29 (3) Type 2 diabetes mellitus ICD Code: E11.9 (4) Morbidly obese ICD Code: E66.01 (5) Depression ICD Code: F32.9 (6) Pressure ulcer ICD Code: L89.90 (7) Sleep apnea ICD Code: G47.30 (8) Hypothyroidism ICD Code: E03.9 (9) Acute hyperkalemia ICD Code: E87.5 History of Present Illness Consult to replace indwelling Montelongo in this 25-year-old morbidly obese paraplegic male. Catheter was changed previously on 01/04/17, as patient refused multiple attempts to change the catheter prior to this date and only agreed to change the catheter after developing fevers and evidence of infection. Now the patient once again has concern for UTI as he has developed fevers and elevated WBC with increased leakage around catheter. Patient has refused Oxybutynin, which is designed to alleviate spasms and minimize urine leakage around catheter. He recently resumed the oxybutynin. Patient requires catheter due to immobility and incontinence, however it appears he has some bladder function. Of note, patient has been noncompliant with medical treatment on multiple occasions. Today patient is agreeable to catheter exchange. Review of Systems ROS Limitations: Clinical Condition Constitutional: COMPLAINS OF: Fever Eyes: DENIES: Blurred vision Respiratory: DENIES: Cough Cardiovascular: DENIES: Chest pain Gastrointestinal: DENIES: Abdominal pain Genitourinary: COMPLAINS OF: Urinary incontinence, Urgency Psychiatric: DENIES: Confusion Except as stated in HPI: all other systems reviewed are Neg Past Family Social History Past Medical History Hypothyroidism Depression Sleep apnea Diabetes mellitus Morbid obesity Past Surgical History No previous urologic surgery Allergies: Coded Allergies: Adhesives (Verified Allergy, Severe, 11/10/16) Azactam (Verified Allergy, Mild, rash, 11/10/16) Mild localized rash. Confirm with patient on January 11, 2016. Clindamycin (Verified Allergy, Mild, rash, 11/10/16) Mild localized rash. Confirm with patient on January 11, 2016. Penicillin (Verified Allergy, Mild, rash, 11/10/16) Mild localized rash. Confirm with patient on January 11, 2016. *MDRO Multi-Drug Resistant Organism (Verified Adverse Reaction, Unknown, ) E. coli ESBL positive (urine) - 07/2012, 11/29/2016 MRSA (foot- 10/27/15),(blood-12/2015),(ankle-04/16/16); MRSA PCR (nares) positive - 01/10/16; ESBL+Klebsiella Pneumoniae & VRE (urine-05/23/16) MDR Pseudomonas aeruginosa (urine) - 05/23/16 Uncoded Allergies: CEFEPIME (Allergy, Mild, Rash, 01/11/16) Mild localized rash. Confirm with patient on January 11, 2016. Family History Heart disease Diabetes mellitus Social History Denies tobacco, alcohol or intravenous drug abuse Physical Exam Vital Signs Date Time Temp Pulse Resp B/P Pulse Ox O2 Delivery O2 Flow Rate FiO2 01/21/17 16:00 97.8 106 14 98/54 87 01/21/17 14:26 141/57 01/21/17 12:00 99.5 111 15 187/111 88 01/21/17 09:53 89 40 01/21/17 09:03 89 21 01/21/17 08:00 101.5 135 15 88 01/21/17 00:00 100.4 117 22 123/77 91 01/20/17 20:00 100.9 121 20 121/62 92 01/20/17 17:50 97 Nasal Cannula 3.00 Physical Exam GENERAL: This is a well-nourished,obese patient, in no apparent distress. SKIN: No rashes, ecchymoses or lesions. Significant skin breakdown in perineal and scrotal area, no obvious ulcers noted HEAD: Atraumatic. Normocephalic. EYES: Pupils equal round and reactive. Extraocular motions intact. ENT: Nose without bleeding, purulent drainage. Airway patent. NECK: Trachea midline. CARDIOVASCULAR: Normal pulses RESPIRATORY: Nonlabored respirations GASTROINTESTINAL: Abdomen soft, non-tender, nondistended. GENITOURINARY: Montelongo catheter in place, significant leakage around catheter with excoriations noted perineal and groin areas MUSCULOSKELETAL: Extremities without clubbing, cyanosis, or edema. NEUROLOGICAL: Awake and alert. Normal speech. Lab results reviewed: Yes Laboratory Tests Test 01/21/17 01/21/17 09:50 10:00 Blood Gas Puncture Site RT RADIAL Blood Gas Patient Temperature 98.6 Blood Gas HCO3 25 Blood Gas Base Excess -2.4 Blood Gas Oxygen Saturation 82 Arterial Blood pH 7.21 Arterial Blood Partial 64 Pressure CO2 Arterial Blood Partial 59 Pressure O2 Arterial Blood Oxygen Content 11.4 Arterial Blood 1.7 Carboxyhemoglobin Arterial Blood Methemoglobin 0.8 Blood Gas Hemoglobin 9.9 Oxygen Delivery Device NASAL CANNULA Blood Gas Liter Flow 3 White Blood Count 16.1 Red Blood Count 3.77 Hemoglobin 8.8 Hematocrit 28.5 Mean Corpuscular Volume 75.7 Mean Corpuscular Hemoglobin 23.4 Mean Corpuscular Hemoglobin 30.9 Concent Red Cell Distribution Width 21.9 Platelet Count 282 Mean Platelet Volume 8.4 Neutrophils (%) (Auto) 81.7 Lymphocytes (%) (Auto) 7.8 Monocytes (%) (Auto) 9.8 Eosinophils (%) (Auto) 0.1 Basophils (%) (Auto) 0.6 Neutrophils # (Auto) 13.1 Lymphocytes # (Auto) 1.3 Monocytes # (Auto) 1.6 Eosinophils # (Auto) 0.0 Basophils # (Auto) 0.1 CBC Comment DIFF FINAL Differential Comment Sodium Level 135 Potassium Level 5.1 Chloride Level 99 Carbon Dioxide Level 25.7 Anion Gap 10 Blood Urea Nitrogen 38 Creatinine 1.88 Estimat Glomerular Filtration 43 Rate Random Glucose 194 Lactic Acid Level 0.8 Calcium Level 8.5 Total Bilirubin 0.3 Aspartate Amino Transf 17 (AST/SGOT) Alanine Aminotransferase 16 (ALT/SGPT) Alkaline Phosphatase 135 Total Protein 7.8 Albumin 2.1 Date/Time Procedure Status Source Growth 01/21/17 11:36 Aerobic Blood Culture Received Blood Peripheral Pending 01/21/17 11:36 Anaerobic Blood Culture Received Blood Peripheral Pending Result Diagram: 01/21/17 1000 01/21/17 1000 Imaging Last Impressions Chest X-Ray 01/21/17 0000 Signed Impressions: Service Date/Time: Saturday, January 21, 2017 09:00 - CONCLUSION: Severely limited examination as described above. Shaggy Weldon MD FACR Assessment and Plan Problem List: (1) Neurogenic bladder ICD Code: N31.9 Status: Chronic (2) Paraplegia ICD Code: G82.20 Status: Chronic (3) Sepsis ICD Code: A41.9 Status: Resolved Assessment and Plan -Montelongo catheter was exchanged over a wire with a new 16Fr [employer] catheter. 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
[2017-01-21 17:55] LABS: BACTERIA, URINE OCC /hpf; BLOOD, URINE LARGE (NEG); GLUCOSE,URINE NEG (NEG); KETONE, URINE NEG (NEG); MUCUS URINE FEW /lpf (OCC); NITRITE,URINE NEG (NEG); URINE COLOR YELLOW (YELLW/STRAW)
[2017-01-21 17:56] LABS: COMMENT (UR) CATH-CULTURE IND; CULTURE IF INDICATED CATH CULTURE IND
[2017-01-21] MEDS: MEROPENEM INJ 500 MG in SODIUM CHLORIDE 0.9% INJ 100 ML IV SCH (18:20)
[2017-01-21] MEDS: ESCITALOPRAM OXALATE 20 MG TAB PO SCH (20:53)
[2017-01-21] MEDS: RIVAROXABAN 20 MG TAB PO SCH (20:53)
[2017-01-21] MEDS: TOLTERODINE TARTRATE 4 MG CAP LA PO SCH (20:53)
[2017-01-22] VITALS (8 sets, daily range): BP systolic 116–134; BP diastolic 56–85; PULSE 106–112; RESP 12–21; TEMP 95.3–99; O2SAT 90–100
[2017-01-22] MEDS: MEROPENEM INJ 500 MG in SODIUM CHLORIDE 0.9% INJ 100 ML IV SCH ×3 (00:06→17:17)
[2017-01-22] MEDS: SODIUM CHLOR 0.9% 1000 ML INJ 1,000 ML IV SCH ×3 (00:07→17:18)
[2017-01-22] MEDS: VANCOMYCIN INJ 2,000 MG in SODIUM CHLORID 0.9% 500 ML INJ 500 ML IV SCH ×2 (02:27→15:26)
[2017-01-22] MEDS: INSULIN ASPART SUPPLEMENTAL SCALE SQ SCH ×4 (05:05→21:00)
[2017-01-22] MEDS: LEVOTHYROXINE SODIUM 50 MCG TAB PO SCH (05:07)
[2017-01-22] MEDS: MIDODRINE 5 MG TAB PO SCH ×2 (05:07→15:27)
[2017-01-22] MEDS: OXYBUTYNIN CHLORIDE 5 MG TAB PO SCH ×2 (05:07→15:27)
[2017-01-22] MEDS: MORPHINE SULFATE 60 MG CONTROLLED RELEASE TAB PO SCH ×2 (05:07→15:27)
[2017-01-22] MEDS: MORPHINE SULFATE 100 MG CONTROLLED RELEASE TAB PO SCH ×2 (05:08→15:27)
[2017-01-22] MEDS: INSULIN DETEMIR 100 UNITS/ML VIAL SQ SCH (05:09)
[2017-01-22 06:01] LABS: POTASSIUM 4.4 MEQ/L (3.5-5.1)
[2017-01-22 06:13] LABS: AUTOMATED NEUTROPHIL # 10.3 TH/MM3 (1.8-7.7); BASOPHIL # 0.1 TH/MM3 (0-0.2); BASOPHIL % 0.5 % (0.0-2.0); EOSINOPHIL # 0.2 TH/MM3 (0-0.4); EOSINOPHIL % 1.4 % (0.0-4.0); HEMATOCRIT 27.8 % (39.0-51.0); HEMO FLAGS DIFF FINAL; LYMPH % 10.7 % (9.0-44.0); LYMPHOCYTE # 1.4 TH/MM3 (1.0-4.8); MEAN CELL VOLUME 75.6 FL (80.0-100.0); MEAN CORPUSCULAR HGB CONC 30.3 % (32.0-36.0); MONO % 10.3 % (0.0-8.0); NEUT % 77.1 % (16.0-70.0); PLATELET COUNT 235 TH/MM3 (150-450); RED BLOOD COUNT 3.68 MIL/MM3 (4.50-5.90); RED CELL DISTRIBUTION WIDTH 21.6 % (11.6-17.2); WHITE BLOOD COUNT 13.3 TH/MM3 (4.0-11.0)
[2017-01-22] MEDS: POVIDONE IODINE 10% OINT 30 GM TUBE TOPICAL SCH (09:00)
[2017-01-22] MEDS: CLOTRIMAZOLE 1% CREAM 15 GM TOPICAL SCH ×2 (09:00→21:00)
[2017-01-22] MEDS: buPROPion HCL 150 MG SUSTAINED RELEASE TAB PO SCH (09:00)
[2017-01-22] MEDS: INSULIN ASPART 1,000 UNITS/10 ML VIAL SQ SCH ×3 (09:28→17:30)
[2017-01-22] MEDS: FAMOTIDINE 20 MG TAB PO SCH (09:30)
[2017-01-22] MEDS: ASCORBIC ACID 500 MG TAB PO SCH ×2 (09:30→21:00)
[2017-01-22] MEDS: GABAPENTIN 300 MG CAP PO SCH ×3 (09:30→17:18)
[2017-01-22] MEDS: DOCUSATE SODIUM 50 MG/SENNA 8.6 MG TAB PO SCH (09:30)
[2017-01-22] MEDS: ATORVASTATIN 40 MG TAB PO SCH (09:30)
[2017-01-22] MEDS: LACTOBACILLUS ACIDOPHILUS TAB PO SCH ×3 (09:30→17:18)
[2017-01-22] MEDS: COLLAGENASE OINT 30 GM TUBE TOPICAL SCH (09:32)
[2017-01-22] MEDS: CLOTRIMAZOLE 1% CREAM 15 GM TOPICAL PRN (09:32)
[2017-01-22] MEDS: BACLOFEN 20 MG TAB PO PRN ×2 (11:57→18:39)
[2017-01-22] MEDS: ALPRAZolam 1 MG TAB PO PRN (11:58)
[2017-01-22] MEDS ORDERED: PHARMACY ORDERED LAB ONE (13:45)
--- NOTE | 2017-01-22 14:39 | HHI.PR ---
Subjective Remarks Patient complains of leaking catheter. No other complaints. Renal function has improved compared to prior test. Objective Vital Signs Date Time Temp Pulse Resp B/P Pulse Ox O2 Delivery O2 Flow Rate FiO2 01/22/17 12:00 95.3 107 13 122/85 90 01/22/17 08:38 92 40 01/22/17 08:00 99.0 106 12 116/56 95 01/22/17 01:05 100 40 01/21/17 23:56 97.2 109 20 130/90 88 01/21/17 20:00 98.2 100 18 131/66 91 01/21/17 18:13 Nasal Cannula 3.00 01/21/17 16:00 97.8 106 14 98/54 87 I/O 01/21/17 01/21/17 01/21/17 01/22/17 01/22/17 01/22/17 07:00 15:00 23:00 07:00 15:00 23:00 Intake Total 840 ml 1000 ml 580 ml 2463 ml 500 ml Output Total 50 ml 1000 ml 650 ml 2400 ml Balance 790 ml 1000 ml -420 ml 1813 ml -1900 ml Intake Oral 840 ml 1000 ml 580 ml 480 ml 500 ml IV Total 1983 ml Output Urine Total 50 ml 1000 ml 650 ml 2400 ml # Voids 1 3 # Bowel Movements 0 0 0 0 Result Diagram: 01/22/1752401/22/17524 Procedures 11/25- S/P flexible cystoscopy with replacement of kyle catheter ([place]cill catheter) Objective Remarks GENERAL: NAD, A&Ox3, severe obesity HEAD: Normocephalic. NECK: Supple, trachea midline. No lymphadenopathy. EYES: No scleral icterus. No injection or drainage. CARDIOVASCULAR: Regular rate and rhythm without murmurs, gallops, or rubs. RESPIRATORY: Breath sounds equal bilaterally. No accessory muscle use. GASTROINTESTINAL: Abdomen soft, non-tender, nondistended. MUSCULOSKELETAL: No cyanosis, or edema. Left leg amputation SKIN: Warm and dry. NEURO: No focal neurological deficitis. A/P Assessment and Plan Assessment and Plan 25-year-old male with sepsis, paraplegia, and neurogenic bladder Sepsis Suspected Recurrent UTI Chronic indwelling catheter Meropenem continued Infectious disease has been consulted Follow urine culture Prior infection has been Escherichia coli related Urology following Ditropan Acute kidney injury Follow renal function Likely related to bladder infection Uncontrolled diabetes mellitus Patient is noncompliant with diet Continue insulins Follow blood sugars Insulin sliding scale Encourage diabetic diet use Chronic pain. Home medications baclofen, morphine, oxycodone. Continue Oramorph. Sleep apnea Insomnia CPAP at night Patient uses Ambien and trazodone for sleep Severe obesity: BMI 98.9. Contributory to all health problems Chronic pressure ulcers: Wound care team following. Anxiety and depression No suicidal ideations Continue Lexapro Hyperlipidemia: Continue Lipitor. Hypothyroidism: Continue levothyroxine. Constipation: PRN laxatives. DVT prophylaxis: On Xarelto Discharge Planning On hold secondary to sepsis Johan Anthony MD Jan 22, 2017 14:39
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
--- NOTE | 2017-01-22 17:01 | RADRPT ---
EXAM DATE/TIME: 01/22/2017 15:53 [facility] COMPARISON: ABDOMEN KUB ONLY, July 14, 2015, 12:43. INDICATIONS : Urinary catheter placement. MEDICAL HISTORY : None. SURGICAL HISTORY : None. ENCOUNTER: Initial ACUITY: 1 day PAIN SCORE: 0/10 LOCATION: Bilateral pelvis FINDINGS: This is a limited quality exam due to body habitus and patient motion. A catheter is identified in t he pelvis which curves back on itself at the level of the pubic bone. Cannot confirm bladder locatio n of the catheter. CONCLUSION: The urinary catheter does not appear to be in the bladder. Ellis Melo MD on January 22, 2017 at 16:57 Board Certified Radiologist. This report was verified electronically.
[2017-01-22] MEDS: HYDROmorphone HCL PF 1 MG/ML VIAL IV PUSH PRN (17:19)
[2017-01-23] VITALS: BP 124/88; PULSE 97; RESP 18; TEMP 98.8; O2SAT 94
[2017-01-23] MEDS: INSULIN DETEMIR 100 UNITS/ML VIAL SQ SCH ×2 (00:40→05:51)
[2017-01-23] MEDS: CLOTRIMAZOLE 1% CREAM 15 GM TOPICAL PRN ×2 (00:41→09:11)
[2017-01-23] MEDS: OXYBUTYNIN CHLORIDE 5 MG TAB PO SCH ×4 (00:42→22:00)
[2017-01-23] MEDS: RIVAROXABAN 20 MG TAB PO SCH ×2 (00:42→21:00)
[2017-01-23] MEDS: DOCUSATE SODIUM 50 MG/SENNA 8.6 MG TAB PO SCH ×3 (00:42→21:00)
[2017-01-23] MEDS: ESCITALOPRAM OXALATE 20 MG TAB PO SCH ×2 (00:43→21:00)
[2017-01-23] MEDS: TOLTERODINE TARTRATE 4 MG CAP LA PO SCH ×2 (00:43→21:00)
[2017-01-23] MEDS: MIDODRINE 5 MG TAB PO SCH ×4 (00:44→22:00)
[2017-01-23] MEDS: MORPHINE SULFATE 60 MG CONTROLLED RELEASE TAB PO SCH ×4 (00:44→22:00)
[2017-01-23] MEDS: MORPHINE SULFATE 100 MG CONTROLLED RELEASE TAB PO SCH ×4 (00:44→22:00)
[2017-01-23] MEDS: traZODone HCL 100 MG TAB PO SCH ×2 (00:50→23:00)
[2017-01-23] MEDS: MEROPENEM INJ 500 MG in SODIUM CHLORIDE 0.9% INJ 100 ML IV SCH ×3 (00:51→17:49)
[2017-01-23] MEDS: SODIUM CHLOR 0.9% 1000 ML INJ 1,000 ML IV SCH ×3 (01:15→17:51)
[2017-01-23 04:54] LABS: HEMATOCRIT 25.6 % (39.0-51.0); MEAN CELL VOLUME 75.7 FL (80.0-100.0); MEAN CORPUSCULAR HEMOGLOBIN 23.8 PG (27.0-34.0); MEAN CORPUSCULAR HGB CONC 31.4 % (32.0-36.0); PLATELET COUNT 254 TH/MM3 (150-450); RED BLOOD COUNT 3.38 MIL/MM3 (4.50-5.90); RED CELL DISTRIBUTION WIDTH 21.6 % (11.6-17.2); REVIEW FLAG FINAL; WHITE BLOOD COUNT 9.6 TH/MM3 (4.0-11.0)
[2017-01-23 05:13] LABS: BICARBONATE 28.1 MEQ/L (21.0-32.0); POTASSIUM 4.1 MEQ/L (3.5-5.1)
[2017-01-23] MEDS: INSULIN ASPART SUPPLEMENTAL SCALE SQ SCH ×4 (05:40→21:00)
[2017-01-23] MEDS: LEVOTHYROXINE SODIUM 50 MCG TAB PO SCH (05:48)
[2017-01-23] MEDS: HYDROmorphone HCL PF 1 MG/ML VIAL IV PUSH PRN ×2 (05:50→09:26)
[2017-01-23 08:00] VITALS: BP 93/52; PULSE 132; RESP 24; TEMP 96.9; O2SAT 94
[2017-01-23] MEDS: CLOTRIMAZOLE 1% CREAM 15 GM TOPICAL SCH (09:00)
[2017-01-23] MEDS: COLLAGENASE OINT 30 GM TUBE TOPICAL SCH (09:00)
[2017-01-23] MEDS: buPROPion HCL 150 MG SUSTAINED RELEASE TAB PO SCH (09:00)
[2017-01-23] MEDS: ASCORBIC ACID 500 MG TAB PO SCH ×2 (09:06→21:00)
[2017-01-23] MEDS: GABAPENTIN 300 MG CAP PO SCH ×3 (09:06→17:52)
[2017-01-23] MEDS: ATORVASTATIN 40 MG TAB PO SCH (09:06)
[2017-01-23] MEDS: LACTOBACILLUS ACIDOPHILUS TAB PO SCH ×3 (09:06→17:51)
[2017-01-23] MEDS: FAMOTIDINE 20 MG TAB PO SCH (09:07)
[2017-01-23] MEDS: POVIDONE IODINE 10% OINT 30 GM TUBE TOPICAL SCH (09:11)
[2017-01-23] MEDS: diphenhydrAMINE HCL 2%/ZINC ACETATE 0.1% CREAM 30 APPLIC/30 GM TUBE TOPICAL PRN (09:12)
[2017-01-23] MEDS: INSULIN ASPART 1,000 UNITS/10 ML VIAL SQ SCH ×3 (09:15→17:00)
--- NOTE | 2017-01-23 11:42 | HHI.PR ---
Subjective Remarks Follow up patient resting. He just received pain medications so he is very drowsy. Able to arouse and denies any pain. Objective Vitals Vital Signs Date Time Temp Pulse Resp B/P Pulse Ox O2 Delivery O2 Flow Rate FiO2 01/23/17 08:00 96.9 132 24 93/52 94 01/23/17 00:00 98.8 97 18 124/88 94 01/22/17 20:00 96.9 112 21 134/70 91 01/22/17 17:24 131/73 01/22/17 16:00 97.1 111 12 90 01/22/17 12:00 95.3 107 13 122/85 90 I/O 01/22/17 01/22/17 01/22/17 01/23/17 01/23/17 01/23/17 07:00 15:00 23:00 07:00 15:00 23:00 Intake Total 2463 ml 1641 ml 580 ml 480 ml Output Total 650 ml 2400 ml 1400 ml 800 ml Balance 1813 ml -759 ml -820 ml -320 ml Intake Oral 480 ml 500 ml 580 ml 480 ml IV Total 1983 ml 1141 ml Output Urine Total 650 ml 2400 ml 1400 ml 800 ml # Bowel Movements 0 Result Diagram: 01/23/17 04301/23/17 043 Objective Remarks GENERAL: NAD, A&Ox3,morbid obesity HEAD: Normocephalic. NECK: Supple, trachea midline. No lymphadenopathy. EYES: No scleral icterus. No injection or drainage. CARDIOVASCULAR: Regular rate and rhythm without murmurs, gallops, or rubs. RESPIRATORY: Breath sounds equal bilaterally. No accessory muscle use. GASTROINTESTINAL: Abdomen soft, non-tender, nondistended. MUSCULOSKELETAL: No cyanosis, or edema. Left leg amputation SKIN: Warm and dry. NEURO: No focal neurological deficits. Procedures 11/25- S/P flexible cystoscopy with replacement of kyle catheter Medications and IVs Current Medications Medications (Trade) Dose Ordered Sig/Shyam Route Start Time Stop Time Status Last Admin (NS Flush) 2 ml UNSCH PRN IV FLUSH 11/10/16 21:45 01/21/17 07:02 (Narcan Inj) 0.4 mg UNSCH PRN IV 11/10/16 21:45 (Xanax) 2 mg Q6HR PRN PO 11/11/16 02:00 6/11/17 11:58 (Vitamin C) 500 mg BID PO 11/11/16 09:00 01/23/17 09:06 (Lipitor) 40 mg DAILY PO 11/11/16 09:00 01/23/17 09:06 (Lioresal) 20 mg Q6HR PRN PO 11/11/16 02:00 01/22/17 18:39 (Peridex 0.12% Liq) 10 ml BID PRN SWISH-SPIT 11/11/16 02:00 (Lotrimin 1% Cream) 1 applic DAILY PRN TOPICAL 11/11/16 02:00 01/23/17 09:11 (Lasix) 40 mg BID PO 11/11/16 09:00 Hold 11/28/16 08:34 (Synthroid) 50 mcg DAILY@06 PO 11/11/16 06:00 01/23/17 05:48 (KCl) 20 meq DAILY PO 11/11/16 09:00 Hold 11/16/16 08:47 (Phenergan) 25 mg Q8HR PRN PO 11/11/16 02:00 01/15/17 13:18 (Pepcid) 20 mg DAILY PO 11/11/16 09:00 01/23/17 09:07 (Xarelto) 20 mg HS PO 11/11/16 21:00 01/23/17 00:42 (Mylicon Chew) 160 mg ACHS PRN CHEW 11/11/16 02:00 01/09/17 13:42 (Zofran Inj) 4 mg Q6HR PRN IV PUSH 11/11/16 03:15 01/21/17 01:38 (D50w (Vial) Inj) 25 ml UNSCH PRN IV PUSH 11/12/16 11:45 (Glucagon Inj) 1 mg UNSCH PRN OTHER 11/12/16 11:45 (Citroma Liq) 600 ml Q24H PRN PO 11/13/16 14:45 01/13/17 21:14 (Tylenol) 650 mg Q4H PRN PO 11/18/16 17:30 01/21/17 07:01 (Santyl Oint) 1 applic DAILY TOPICAL 11/23/16 12:45 01/23/17 09:00 (Betadine 10% Oint) 1 applic DAILY TOPICAL 11/23/16 18:32 01/23/17 09:11 (Proamatine) 10 mg Q8HR PO 11/30/16 21:00 01/23/17 00:44 (Roxicodone) 30 mg Q4H PRN PO 12/06/16 12:30 01/22/17 18:39 (Wellbutrin Sr) 150 mg DAILY PO 12/10/16 16:15 01/23/17 09:00 (Lexapro) 20 mg HS PO 12/10/16 21:00 01/23/17 00:43 (Erin-Colace) 1 tab BID PO 12/10/16 21:00 01/23/17 09:06 (Ambien) 5 mg HS PRN PO 12/10/16 21:00 01/21/17 22:57 (Benadryl 2% Cream) 1 applic TID PRN TOPICAL 12/11/16 08:15 01/23/17 09:12 (Neurontin) 300 mg TID PO 12/12/16 18:00 01/23/17 09:06 (Detrol La) 4 mg HS PO 12/14/16 21:00 01/23/17 00:43 (Miralax) 17 gm DAILY PRN PO 12/19/16 09:45 12/26/16 10:17 (Desyrel) 200 mg HS@23 PO 12/21/16 23:00 01/23/17 00:50 (Lactulose Liq) 30 ml DAILY PRN PO 12/24/16 12:15 01/02/17 11:47 (Fleets Enema (Adult)) 133 ml UNSCH PRN RECTAL 12/26/16 11:45 12/26/16 12:49 (Levemir Inj) 32 units HS SQ 12/29/16 21:00 01/23/17 00:40 (Lotrimin 1% Cream) 1 applic Q12HR TOPICAL 01/01/17 09:00 01/21/17 20:54 (Lactinex) 1 tab TID PO 01/02/17 13:00 01/23/17 09:06 (Clear Eyes Redness Relief 0.012% Opth Soln) 1 drop Q6H PRN RIGHT EYE 01/02/17 13:45 01/07/17 09:27 (Heparin Central Flush) See Protocol DAILY IV FLUSH 01/06/17 09:00 01/22/17 09:32 (Heparin Central Flush) See Protocol UNSCH PRN IV FLUSH 01/05/17 18:30 (Oramorph Sr) 100 mg Q8H PO 01/10/17 06:00 01/23/17 05:49 (Milk Of Magnesia Liq) 30 ml DAILY PRN PO 01/14/17 16:45 (Ditropan) 10 mg Q8HR PO 01/15/17 14:00 01/23/17 05:48 (Dilaudid Pf Inj) 2 mg Q3H PRN IV PUSH 01/19/17 14:00 01/23/17 09:26 (Oramorph Sr) 60 mg Q8H PO 01/19/17 14:00 01/23/17 05:48 Insulin Aspart 7 units 7 units TIDAC SQ 01/19/17 12:00 01/23/17 09:15 Sodium Chloride 1,000 ml @ 125 mls/hr Q8H IV 01/21/17 09:15 01/23/17 09:15 Pharmacy Profile Note 0 ml @ 0 mls/hr UNSCH OTHER 01/21/17 11:30 (Merrem Inj/NS Inj) 100 ml @ 200 mls/hr Q8H IV 01/21/17 16:00 01/23/17 09:16 Urinary Catheter: Yes Assessment to: Continue Kyle insert reason: Prolonged Immobilization Date of Insertion: January 04, 2017 Line: PICC Side: Left A/P Problem List: (1) UTI (urinary tract infection) ICD Code: N39.0 Status: Resolved (2) Chronic pain ICD Code: G89.29 Status: Chronic (3) Type 2 diabetes mellitus ICD Code: E11.9 Status: Chronic (4) Morbidly obese ICD Code: E66.01 Status: Chronic (5) Depression ICD Code: F32.9 Status: Chronic (6) Pressure ulcer ICD Code: L89.90 Status: Chronic (7) Sleep apnea ICD Code: G47.30 Status: Chronic (8) Hypothyroidism ICD Code: E03.9 Status: Chronic (9) Acute hyperkalemia ICD Code: E87.5 Status: Acute Assessment and Plan 25-year-old male with sepsis, paraplegia, and neurogenic bladder Sepsis, Suspected Recurrent UTI due to Chronic indwelling catheter, Prior infection has been Escherichia coli related -Urine culture has no growth in 48 hours, cont to follow -ID Following, Meropenem continued -Urology following recommends monthly cath changes, 30cc was placed in balloon to endure it stays in bladder -Cont Ditropan -Pelvic xray shows catheter not in bladder, asked the nurse to advance and add 30cc to balloon Acute kidney injury, improving, cr 1.5 -Follow renal function -Likely related to bladder infection Uncontrolled diabetes mellitus -Patient is noncompliant with diet -Accu checks with SSI and levemir -Follow blood sugars -Changed to diabetic diet, allow for extra healthy protein Chronic pain. Home medications baclofen, morphine, oxycodone. Continue Oramorph. Oxycodone for breakthrough. D/C Dilaudid Sleep apnea Insomnia -CPAP at night -Patient uses Ambien and trazodone for sleep Severe obesity: BMI 98.9. -Contributory to all health problems -Frequent turning Chronic pressure ulcers: -Wound care team following, cont Santyl Anxiety and depression -No suicidal ideations -Continue Lexapro Hyperlipidemia: -Continue Lipitor. Hypothyroidism: -Continue levothyroxine. Constipation: -PRN laxatives. 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
[2017-01-23 12:00] VITALS: BP 108/54; PULSE 76; RESP 18; TEMP 96.9; O2SAT 94; O2SAT 96
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
[2017-01-23 16:00] VITALS: BP 102/54; PULSE 69; RESP 20; TEMP 95.6; O2SAT 91
[2017-01-23 20:00] VITALS: BP 122/60; PULSE 70; RESP 17; TEMP 98.9; O2SAT 95
[2017-01-23 20:23] VITALS: O2SAT 95
[2017-01-24] VITALS (7 sets, daily range): BP systolic 128–163; BP diastolic 67–83; PULSE 71–120; RESP 18–22; TEMP 96.6–98; O2SAT 91–96
[2017-01-24] MEDS: INSULIN DETEMIR 100 UNITS/ML VIAL SQ SCH ×3 (00:52→21:51)
[2017-01-24] MEDS: CLOTRIMAZOLE 1% CREAM 15 GM TOPICAL SCH ×3 (00:53→21:00)
[2017-01-24] MEDS: MEROPENEM INJ 500 MG in SODIUM CHLORIDE 0.9% INJ 100 ML IV SCH ×3 (00:54→17:39)
[2017-01-24] MEDS: SODIUM CHLOR 0.9% 1000 ML INJ 1,000 ML IV SCH ×3 (00:54→17:15)
[2017-01-24] MEDS: MORPHINE SULFATE 60 MG CONTROLLED RELEASE TAB PO SCH ×3 (06:16→21:36)
[2017-01-24] MEDS: MIDODRINE 5 MG TAB PO SCH ×3 (06:16→22:00)
[2017-01-24] MEDS: OXYBUTYNIN CHLORIDE 5 MG TAB PO SCH ×3 (06:16→21:35)
[2017-01-24] MEDS: LEVOTHYROXINE SODIUM 50 MCG TAB PO SCH (06:17)
[2017-01-24] MEDS: MORPHINE SULFATE 100 MG CONTROLLED RELEASE TAB PO SCH ×3 (06:17→21:36)
[2017-01-24] MEDS: INSULIN ASPART SUPPLEMENTAL SCALE SQ SCH ×4 (07:00→21:00)
[2017-01-24] MEDS: INSULIN ASPART 1,000 UNITS/10 ML VIAL SQ SCH ×3 (08:00→17:00)
[2017-01-24] MEDS: DOCUSATE SODIUM 50 MG/SENNA 8.6 MG TAB PO SCH ×2 (09:00→20:05)
[2017-01-24] MEDS: POVIDONE IODINE 10% OINT 30 GM TUBE TOPICAL SCH (09:00)
[2017-01-24] MEDS: COLLAGENASE OINT 30 GM TUBE TOPICAL SCH (09:00)
[2017-01-24] MEDS: buPROPion HCL 150 MG SUSTAINED RELEASE TAB PO SCH (09:00)
[2017-01-24] MEDS: LACTOBACILLUS ACIDOPHILUS TAB PO SCH ×3 (09:07→17:40)
[2017-01-24] MEDS: ASCORBIC ACID 500 MG TAB PO SCH ×2 (09:07→20:04)
[2017-01-24] MEDS: GABAPENTIN 300 MG CAP PO SCH ×3 (09:07→17:40)
[2017-01-24] MEDS: FAMOTIDINE 20 MG TAB PO SCH (09:07)
[2017-01-24] MEDS: ATORVASTATIN 40 MG TAB PO SCH (09:07)
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
[2017-01-24] MEDS: ALPRAZolam 1 MG TAB PO PRN (13:53)
[2017-01-24] MEDS: BACLOFEN 20 MG TAB PO PRN (13:54)
[2017-01-24] MEDS ORDERED: VANCOMYCIN INJ 2,000 MG in SODIUM CHLORID 0.9% 500 ML INJ 500 ML IV ONE (18:00)
[2017-01-24] MEDS: ESCITALOPRAM OXALATE 20 MG TAB PO SCH (20:05)
[2017-01-24] MEDS: RIVAROXABAN 20 MG TAB PO SCH (20:05)
[2017-01-24] MEDS: TOLTERODINE TARTRATE 4 MG CAP LA PO SCH (21:35)
[2017-01-25] VITALS: BP 140/93; PULSE 106; RESP 18; TEMP 96.6; O2SAT 92
[2017-01-25] MEDS: ZOLPIDEM TARTRATE 5 MG TAB PO PRN ×2 (01:14→23:34)
[2017-01-25] MEDS: traZODone HCL 100 MG TAB PO SCH ×2 (01:14→23:34)
[2017-01-25] MEDS: ALPRAZolam 1 MG TAB PO PRN ×3 (01:15→23:34)
[2017-01-25] MEDS: MEROPENEM INJ 500 MG in SODIUM CHLORIDE 0.9% INJ 100 ML IV SCH ×4 (01:15→23:35)
[2017-01-25] MEDS: BACLOFEN 20 MG TAB PO PRN ×3 (01:15→23:34)
[2017-01-25] MEDS: OXYBUTYNIN CHLORIDE 5 MG TAB PO SCH ×3 (06:00→21:43)
[2017-01-25] MEDS: MORPHINE SULFATE 100 MG CONTROLLED RELEASE TAB PO SCH ×3 (06:00→21:44)
[2017-01-25] MEDS: MIDODRINE 5 MG TAB PO SCH ×3 (06:00→21:43)
[2017-01-25] MEDS: LEVOTHYROXINE SODIUM 50 MCG TAB PO SCH (06:00)
[2017-01-25] MEDS: MORPHINE SULFATE 60 MG CONTROLLED RELEASE TAB PO SCH ×3 (06:00→21:44)
[2017-01-25] MEDS: SODIUM CHLOR 0.9% 1000 ML INJ 1,000 ML IV SCH ×3 (06:39→17:15)
[2017-01-25] MEDS: INSULIN ASPART SUPPLEMENTAL SCALE SQ SCH ×4 (06:43→21:00)
[2017-01-25] MEDS: INSULIN DETEMIR 100 UNITS/ML VIAL SQ SCH ×2 (07:00→21:00)
[2017-01-25 08:00] VITALS: BP 114/64; PULSE 99; RESP 14; TEMP 96.4; O2SAT 92
[2017-01-25] MEDS: INSULIN ASPART 1,000 UNITS/10 ML VIAL SQ SCH ×3 (08:00→17:00)
[2017-01-25 08:20] VITALS: O2SAT 93
[2017-01-25] MEDS: LACTOBACILLUS ACIDOPHILUS TAB PO SCH ×3 (08:20→16:41)
[2017-01-25] MEDS: DOCUSATE SODIUM 50 MG/SENNA 8.6 MG TAB PO SCH ×2 (08:20→21:00)
[2017-01-25] MEDS: POVIDONE IODINE 10% OINT 30 GM TUBE TOPICAL SCH (08:20)
[2017-01-25] MEDS: ATORVASTATIN 40 MG TAB PO SCH (08:20)
[2017-01-25] MEDS: GABAPENTIN 300 MG CAP PO SCH ×3 (08:20→16:40)
[2017-01-25] MEDS: FAMOTIDINE 20 MG TAB PO SCH (08:20)
[2017-01-25] MEDS: buPROPion HCL 150 MG SUSTAINED RELEASE TAB PO SCH (08:20)
[2017-01-25] MEDS: ASCORBIC ACID 500 MG TAB PO SCH ×2 (08:20→21:43)
[2017-01-25] MEDS: COLLAGENASE OINT 30 GM TUBE TOPICAL SCH (08:21)
[2017-01-25] MEDS: CLOTRIMAZOLE 1% CREAM 15 GM TOPICAL SCH ×2 (08:21→21:44)
[2017-01-25 12:00] VITALS: BP 122/83; PULSE 98; RESP 20; TEMP 97.7; O2SAT 92
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
[2017-01-25] MEDS: NYSTAT/DIPHENHY/LIDO MOUTHWASH (Adult) 120ML SWISH-SWAL SCH ×3 (13:00→21:44)
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
[2017-01-25 16:00] VITALS: BP 145/73; PULSE 96; RESP 20; TEMP 96.9; O2SAT 91
[2017-01-25 21:28] VITALS: BP 118/51; PULSE 82; RESP 18; TEMP 97.2; O2SAT 95
[2017-01-25] MEDS: TOLTERODINE TARTRATE 4 MG CAP LA PO SCH (21:43)
[2017-01-25] MEDS: RIVAROXABAN 20 MG TAB PO SCH (21:43)
[2017-01-25] MEDS: ESCITALOPRAM OXALATE 20 MG TAB PO SCH (21:43)
[2017-01-25] MEDS: ARIPiprazole 2 MG TAB PO SCH (21:43)
[2017-01-26] MEDS: SODIUM CHLOR 0.9% 1000 ML INJ 1,000 ML IV SCH ×4 (01:15→21:34)
[2017-01-26 01:22] VITALS: BP 124/62; PULSE 103; RESP 20; TEMP 96.9; O2SAT 95
[2017-01-26] MEDS: OXYBUTYNIN CHLORIDE 5 MG TAB PO SCH ×3 (06:06→21:07)
[2017-01-26] MEDS: MIDODRINE 5 MG TAB PO SCH ×3 (06:06→21:07)
[2017-01-26 06:25] LABS: AUTOMATED NEUTROPHIL # 5.3 TH/MM3 (1.8-7.7); BASOPHIL # 0.1 TH/MM3 (0-0.2); BASOPHIL % 1.4 % (0.0-2.0); EOSINOPHIL # 0.4 TH/MM3 (0-0.4); EOSINOPHIL % 4.7 % (0.0-4.0); HEMATOCRIT 28.5 % (39.0-51.0); HEMO FLAGS DIFF FINAL; LYMPH % 28.1 % (9.0-44.0); LYMPHOCYTE # 2.6 TH/MM3 (1.0-4.8); MEAN CELL VOLUME 74.6 FL (80.0-100.0); MEAN CORPUSCULAR HEMOGLOBIN 23.6 PG (27.0-34.0); MEAN CORPUSCULAR HGB CONC 31.6 % (32.0-36.0); NEUT % 56.8 % (16.0-70.0); PLATELET COUNT 379 TH/MM3 (150-450); RED BLOOD COUNT 3.82 MIL/MM3 (4.50-5.90); RED CELL DISTRIBUTION WIDTH 21.9 % (11.6-17.2); WHITE BLOOD COUNT 9.3 TH/MM3 (4.0-11.0)
[2017-01-26 06:54] LABS: ANION GAP 9 MEQ/L (5-15); AST (GOT) 17 U/L (15-37); BICARBONATE 26.4 MEQ/L (21.0-32.0); BLOOD UREA NITROGEN 27 MG/DL (7-18); CHLORIDE 107 MEQ/L (98-107); GLOMERULAR FILTRATION RATE 71 ML/MIN (>89); POTASSIUM 3.4 MEQ/L (3.5-5.1); SODIUM (NA) 142 MEQ/L (136-145)
[2017-01-26 06:55] LABS: ALT (GPT) 17 U/L (12-78)
[2017-01-26 06:57] LABS: ALKALINE PHOSPHATASE 110 U/L (45-117); TOTAL BILIRUBIN ADULT 0.3 MG/DL (0.2-1.0)
[2017-01-26] MEDS: MORPHINE SULFATE 100 MG CONTROLLED RELEASE TAB PO SCH ×3 (07:00→21:06)
[2017-01-26] MEDS: INSULIN ASPART SUPPLEMENTAL SCALE SQ SCH ×4 (07:00→21:00)
[2017-01-26] MEDS: BACLOFEN 20 MG TAB PO PRN ×3 (07:00→21:34)
[2017-01-26] MEDS: INSULIN DETEMIR 100 UNITS/ML VIAL SQ SCH ×2 (07:00→21:00)
[2017-01-26] MEDS: LEVOTHYROXINE SODIUM 50 MCG TAB PO SCH (07:00)
[2017-01-26] MEDS: ALPRAZolam 1 MG TAB PO PRN ×2 (07:00→18:22)
[2017-01-26] MEDS: MORPHINE SULFATE 60 MG CONTROLLED RELEASE TAB PO SCH ×3 (07:01→21:08)
[2017-01-26 08:00] VITALS: BP 108/74; PULSE 92; RESP 15; TEMP 97.7; O2SAT 98
[2017-01-26] MEDS: INSULIN ASPART 1,000 UNITS/10 ML VIAL SQ SCH ×3 (08:00→17:00)
[2017-01-26] MEDS: MEROPENEM INJ 500 MG in SODIUM CHLORIDE 0.9% INJ 100 ML IV SCH (08:00)
[2017-01-26] MEDS: COLLAGENASE OINT 30 GM TUBE TOPICAL SCH (09:00)
[2017-01-26] MEDS: POVIDONE IODINE 10% OINT 30 GM TUBE TOPICAL SCH (09:00)
[2017-01-26] MEDS: buPROPion HCL 150 MG SUSTAINED RELEASE TAB PO SCH (09:00)
[2017-01-26] MEDS: GABAPENTIN 300 MG CAP PO SCH ×3 (10:21→16:01)
[2017-01-26] MEDS: LACTOBACILLUS ACIDOPHILUS TAB PO SCH ×3 (10:21→16:01)
[2017-01-26] MEDS: FAMOTIDINE 20 MG TAB PO SCH (10:21)
[2017-01-26] MEDS: DOCUSATE SODIUM 50 MG/SENNA 8.6 MG TAB PO SCH ×2 (10:21→21:00)
[2017-01-26] MEDS: ATORVASTATIN 40 MG TAB PO SCH (10:22)
[2017-01-26] MEDS: ASCORBIC ACID 500 MG TAB PO SCH ×2 (10:22→21:05)
[2017-01-26] MEDS: NYSTAT/DIPHENHY/LIDO MOUTHWASH (Adult) 120ML SWISH-SWAL SCH ×3 (10:24→21:09)
[2017-01-26 12:00] VITALS: BP 121/76; PULSE 86; RESP 18; TEMP 96.6; O2SAT 96
[2017-01-26] MEDS ORDERED: VANCOMYCIN INJ 2,000 MG in SODIUM CHLORID 0.9% 500 ML INJ 500 ML IV ONE (12:00)
--- NOTE | 2017-01-26 12:56 | HHI.PR ---
Addendum to Inpatient Note Additional Information Pt remains stable and afebrile Clx are finalyzed and negative - dc abx - dw Dr Anthony - will sign off at this point, please reconsult if anty new issue occur Radha Leal MD Jan 26, 2017 12:56
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
[2017-01-26 16:00] VITALS: BP 146/78; PULSE 18; RESP 20; TEMP 96.4; O2SAT 94
[2017-01-26 18:08] VITALS: O2SAT 94
[2017-01-26 20:00] VITALS: BP 119/77; PULSE 94; RESP 20; TEMP 96.9; O2SAT 93
[2017-01-26] MEDS: CLOTRIMAZOLE 1% CREAM 15 GM TOPICAL SCH (21:00)
[2017-01-26] MEDS: TOLTERODINE TARTRATE 4 MG CAP LA PO SCH (21:05)
[2017-01-26] MEDS: ESCITALOPRAM OXALATE 20 MG TAB PO SCH (21:05)
[2017-01-26] MEDS: ARIPiprazole 2 MG TAB PO SCH (21:08)
[2017-01-26] MEDS: RIVAROXABAN 20 MG TAB PO SCH (21:34)
[2017-01-27] VITALS (7 sets, daily range): BP systolic 125–143; BP diastolic 51–81; PULSE 88–99; RESP 20–22; TEMP 95.5–97.1; O2SAT 92–96
[2017-01-27] MEDS: traZODone HCL 100 MG TAB PO SCH (00:44)
[2017-01-27] MEDS: ALPRAZolam 1 MG TAB PO PRN ×3 (00:44→21:21)
[2017-01-27] MEDS: ZOLPIDEM TARTRATE 5 MG TAB PO PRN ×2 (00:44→21:20)
[2017-01-27] MEDS: MIDODRINE 5 MG TAB PO SCH ×3 (05:09→21:19)
[2017-01-27] MEDS: LEVOTHYROXINE SODIUM 50 MCG TAB PO SCH (05:09)
[2017-01-27] MEDS: MORPHINE SULFATE 60 MG CONTROLLED RELEASE TAB PO SCH ×3 (05:10→21:20)
[2017-01-27] MEDS: INSULIN ASPART SUPPLEMENTAL SCALE SQ SCH ×4 (05:10→21:00)
[2017-01-27] MEDS: OXYBUTYNIN CHLORIDE 5 MG TAB PO SCH ×3 (05:10→21:22)
[2017-01-27] MEDS: MORPHINE SULFATE 100 MG CONTROLLED RELEASE TAB PO SCH ×3 (05:10→21:20)
[2017-01-27] MEDS: INSULIN DETEMIR 100 UNITS/ML VIAL SQ SCH ×2 (05:11→21:00)
[2017-01-27] MEDS: INSULIN ASPART 1,000 UNITS/10 ML VIAL SQ SCH ×3 (08:00→17:00)
[2017-01-27] MEDS: NYSTAT/DIPHENHY/LIDO MOUTHWASH (Adult) 120ML SWISH-SWAL SCH ×4 (08:49→21:22)
[2017-01-27] MEDS: FAMOTIDINE 20 MG TAB PO SCH (08:49)
[2017-01-27] MEDS: DOCUSATE SODIUM 50 MG/SENNA 8.6 MG TAB PO SCH ×2 (08:50→21:18)
[2017-01-27] MEDS: LACTOBACILLUS ACIDOPHILUS TAB PO SCH ×3 (08:50→17:49)
[2017-01-27] MEDS: ASCORBIC ACID 500 MG TAB PO SCH ×2 (08:50→21:21)
[2017-01-27] MEDS: buPROPion HCL 150 MG SUSTAINED RELEASE TAB PO SCH (08:50)
[2017-01-27] MEDS: GABAPENTIN 300 MG CAP PO SCH ×3 (08:50→17:50)
[2017-01-27] MEDS: ATORVASTATIN 40 MG TAB PO SCH (08:50)
[2017-01-27] MEDS: COLLAGENASE OINT 30 GM TUBE TOPICAL SCH (09:00)
[2017-01-27] MEDS: CLOTRIMAZOLE 1% CREAM 15 GM TOPICAL SCH ×2 (09:00→21:00)
[2017-01-27] MEDS: POVIDONE IODINE 10% OINT 30 GM TUBE TOPICAL SCH (09:00)
[2017-01-27] MEDS: BACLOFEN 20 MG TAB PO PRN ×2 (15:00→21:21)
[2017-01-27] MEDS: SODIUM CHLOR 0.9% 1000 ML INJ 1,000 ML IV SCH ×2 (15:01→17:15)
--- NOTE | 2017-01-27 15:58 | HHI.PR ---
Subjective Remarks Patient requests to see physician today. He wished to discuss adjustments in pain treatments. He is hoping to return to IV Dilaudid. I don't plan to return and IV Dilaudid as he is a candidate for transfer to a rehabilitation center or to our long-term care rehabilitation floor. Neither against the situations be conducive with IV Dilaudid. We discussed the fentanyl patch as an option. I told him I'd like to not increase his overall narcotic load and a given day. He asked if any pain treatment adjustments can be deferred to the next physician taking over or to his palpated care physician. We discussed diet. The patient wishes to take double caloric recommendations and given his obesity I have recommended against this. He also wishes to change to a regular diet rather than a diabetic diet despite being diabetic. I also recommend against this. Finally he wishes to transferred to a different floor. Planning to transfer him when available to a long-term care rehabilitation floor. He requests a consult with palliative care medicine. 60 minutes of [id number] time spent with patient. Objective Vital Signs Date Time Temp Pulse Resp B/P Pulse Ox O2 Delivery O2 Flow Rate FiO2 01/27/17 12:00 97.1 99 22 129/66 96 01/27/17 08:46 96 01/27/17 08:46 96 21 01/27/17 08:00 95.5 92 20 143/69 93 01/27/17 06:10 18 01/27/17 06:10 18 01/27/17 00:00 96.4 92 20 125/51 95 01/26/17 23:02 18 01/26/17 20:00 96.9 94 20 119/77 93 01/26/17 18:08 94 Nasal Cannula 3.00 01/26/17 16:00 96.4 18 20 146/78 94 I/O 01/26/17 01/26/17 01/26/17 01/27/17 01/27/17 01/27/17 06:59 14:59 22:59 06:59 14:59 22:59 Intake Total 700 ml 360 ml 3184 ml 480 ml 2080 ml Output Total 3000 ml 3350 ml 3300 ml 5050 ml Balance -2300 ml 360 ml -166 ml -2820 ml -2970 ml Intake Oral 360 ml 1080 ml 480 ml 2080 ml IV Total 700 ml 2104 ml Output Urine Total 3000 ml 3350 ml 3300 ml 5050 ml # Bowel Movements 0 0 0 Result Diagram: 01/26/17 0601/26/17 06 Procedures 11/25- S/P flexible cystoscopy with replacement of kyle catheter (Councill catheter) Objective Remarks GENERAL: NAD, A&Ox3, extreme obesity HEAD: Normocephalic. NECK: Supple, trachea midline. No lymphadenopathy. EYES: No scleral icterus. No injection or drainage. CARDIOVASCULAR: Regular rate and rhythm without murmurs, gallops, or rubs. RESPIRATORY: Breath sounds equal bilaterally. No accessory muscle use. GASTROINTESTINAL: Abdomen soft, non-tender, nondistended. MUSCULOSKELETAL: No cyanosis, or edema. Left leg amputation SKIN: Warm and dry. NEURO: No focal neurological deficitis. A/P Problem List: (1) Chronic indwelling Kyle catheter ICD Code: Z92.89 (2) Pain ICD Code: R52 (3) Morbid obesity ICD Code: E66.01 Assessment and Plan Assessment and Plan 25-year-old male with sepsis, paraplegia, and neurogenic bladder. Patient wished to meet with Dr. lincoln to discuss his pain treatments, his diabetic diet and how she should switch to regular diet, his caloric intake and how she should be on double baseline caloric recommendations, and is wished to leave the medical surgical unit that he is in. This discussion took place over 60 minutes. Sepsis Resolved. Antibiotics completed. Acute kidney injury Follow renal function Likely related to bladder infection Uncontrolled diabetes mellitus Diabetic diet. Caloric limits are not present. Continue insulins Follow blood sugars Insulin sliding scale Encourage diabetic diet use regarding feeding the patient brings from outside sources Chronic pain. Continue Roxicodone. Consider fentanyl patch. No further IV pain treatments planned. Palliative care consult to discuss fentanyl per patient's request. Sleep apnea Insomnia CPAP at night Patient uses Ambien and trazodone for sleep Severe obesity: BMI 98.9. Contributory to all health problems Continue appropriate caloric diet, I do not recommend increasing this patient's calories to double recommended, which he desires. Chronic pressure ulcers: Wound care team following. Anxiety and depression No suicidal ideations Continue Lexapro Hyperlipidemia: Continue Lipitor. Hypothyroidism: Continue levothyroxine. Constipation: PRN laxatives. DVT prophylaxis: On Xarelto Discharge Planning Placement when available. Continue PT. 60 minutes of [id number] time spent with patient. Johan Anthony MD Jan 27, 2017 3:58 pm
[2017-01-27] MEDS: ARIPiprazole 2 MG TAB PO SCH (21:18)
[2017-01-27] MEDS: TOLTERODINE TARTRATE 4 MG CAP LA PO SCH (21:19)
[2017-01-27] MEDS: RIVAROXABAN 20 MG TAB PO SCH (21:21)
[2017-01-27] MEDS: ESCITALOPRAM OXALATE 20 MG TAB PO SCH (21:21)
[2017-01-28] VITALS: BP 112/85; PULSE 86; RESP 20; TEMP 96.7; O2SAT 95
[2017-01-28] MEDS: traZODone HCL 100 MG TAB PO SCH ×2 (01:30→23:00)
[2017-01-28] MEDS: SODIUM CHLOR 0.9% 1000 ML INJ 1,000 ML IV SCH ×4 (01:31→23:48)
[2017-01-28] MEDS: MORPHINE SULFATE 100 MG CONTROLLED RELEASE TAB PO SCH ×3 (05:17→21:49)
[2017-01-28] MEDS: MIDODRINE 5 MG TAB PO SCH ×3 (05:17→21:48)
[2017-01-28] MEDS: OXYBUTYNIN CHLORIDE 5 MG TAB PO SCH ×3 (05:17→21:48)
[2017-01-28] MEDS: MORPHINE SULFATE 60 MG CONTROLLED RELEASE TAB PO SCH ×3 (05:17→21:50)
[2017-01-28] MEDS: LEVOTHYROXINE SODIUM 50 MCG TAB PO SCH (05:17)
[2017-01-28] MEDS: ALPRAZolam 1 MG TAB PO PRN ×2 (06:08→15:28)
[2017-01-28] MEDS: BACLOFEN 20 MG TAB PO PRN ×2 (06:09→15:28)
[2017-01-28] MEDS: INSULIN ASPART SUPPLEMENTAL SCALE SQ SCH ×4 (06:11→21:00)
[2017-01-28] MEDS: INSULIN DETEMIR 100 UNITS/ML VIAL SQ SCH ×2 (06:11→21:00)
[2017-01-28 06:48] LABS: HEMATOCRIT 28.1 % (39.0-51.0); MEAN CELL VOLUME 75.1 FL (80.0-100.0); MEAN CORPUSCULAR HEMOGLOBIN 23.6 PG (27.0-34.0); MEAN CORPUSCULAR HGB CONC 31.4 % (32.0-36.0); PLATELET COUNT 352 TH/MM3 (150-450); RED BLOOD COUNT 3.74 MIL/MM3 (4.50-5.90); RED CELL DISTRIBUTION WIDTH 22.1 % (11.6-17.2); REVIEW FLAG FINAL; WHITE BLOOD COUNT 11.7 TH/MM3 (4.0-11.0)
[2017-01-28 07:01] LABS: BICARBONATE 27.1 MEQ/L (21.0-32.0); POTASSIUM 3.7 MEQ/L (3.5-5.1)
[2017-01-28 08:00] VITALS: BP 115/54; PULSE 88; RESP 16; TEMP 96.2; O2SAT 91
[2017-01-28] MEDS: NYSTAT/DIPHENHY/LIDO MOUTHWASH (Adult) 120ML SWISH-SWAL SCH ×4 (08:44→21:00)
[2017-01-28] MEDS: SODIUM CHLORIDE 0.9% FLUSH 10 ML FLUSH IV FLUSH PRN (08:45)
[2017-01-28] MEDS: LACTOBACILLUS ACIDOPHILUS TAB PO SCH ×3 (08:49→17:31)
[2017-01-28] MEDS: DOCUSATE SODIUM 50 MG/SENNA 8.6 MG TAB PO SCH ×2 (08:50→21:48)
[2017-01-28] MEDS: GABAPENTIN 300 MG CAP PO SCH ×3 (08:50→17:31)
[2017-01-28] MEDS: ASCORBIC ACID 500 MG TAB PO SCH ×2 (08:51→21:48)
[2017-01-28] MEDS: ATORVASTATIN 40 MG TAB PO SCH (08:51)
[2017-01-28] MEDS: POLYETHYLENE GLYCOL 17 GM PKG PO PRN (08:52)
[2017-01-28] MEDS: FAMOTIDINE 20 MG TAB PO SCH (08:56)
[2017-01-28] MEDS: buPROPion HCL 150 MG SUSTAINED RELEASE TAB PO SCH (08:57)
[2017-01-28] MEDS: COLLAGENASE OINT 30 GM TUBE TOPICAL SCH (08:59)
[2017-01-28] MEDS: CLOTRIMAZOLE 1% CREAM 15 GM TOPICAL SCH ×2 (09:00→21:00)
[2017-01-28] MEDS: POVIDONE IODINE 10% OINT 30 GM TUBE TOPICAL SCH (09:00)
[2017-01-28] MEDS: INSULIN ASPART 1,000 UNITS/10 ML VIAL SQ SCH ×3 (09:12→17:43)
[2017-01-28] MEDS: LACTULOSE SYRUP 20 GM/30 ML CUP PO PRN (10:18)
[2017-01-28 11:16] VITALS: O2SAT 93
--- NOTE | 2017-01-28 14:31 | HHI.PR ---
Subjective Remarks Follow-up visit paraplegic, chronic pain, neurogenic bladder with suprapubic catheter use, urosepsis. Patient seen and examined today. Lying in bed. Pt with multiple complaints: sore tongue/throat, urine leaking from his catheter, and generalized sense of unhappiness. Pt complained of "thrush" and was receiving "magic mouthwash" by his RN (Cassi) towards end of visit. Pt stated he did not want to be transferred to a different unit/bed/hospital as "I feel I have the right people now taking care of me." Pt denied cough, fever, shortness of breath, abdominal pain, NVD, bloody urine or stool. RN (Cassi) reported no acute issues or changes overnight. She did voice that upon her examination of him he had "diminished breath sounds." RN stated pt had not had a bowel movement since 01/22. Pt said he felt he would have one soon as he has been taking cathartics and "I have a couple of bottles of mag citrate in here that I will drink if I don't go soon." No new issues or concerns, other than above,noted. Objective Vitals Vital Signs Date Time Temp Pulse Resp B/P Pulse Ox O2 Delivery O2 Flow Rate FiO2 01/28/17 11:16 93 21 01/28/17 08:00 96.2 88 16 115/54 91 01/28/17 02:44 18 01/28/17 00:00 96.7 86 20 112/85 95 01/27/17 22:20 20 01/27/17 22:20 20 01/27/17 20:00 96.4 88 20 133/81 96 01/27/17 17:55 92 21 01/27/17 16:00 96.3 93 20 125/61 92 I/O 01/27/17 01/27/17 01/27/17 01/28/17 01/28/17 01/28/17 07:00 15:00 23:00 07:00 15:00 23:00 Intake Total 480 ml 2080 ml 480 ml 2421 ml Output Total 3300 ml 5050 ml 2500 ml 2000 ml Balance -2820 ml -2970 ml -2020 ml 421 ml Intake Oral 480 ml 2080 ml 480 ml 480 ml IV Total 1941 ml Output Urine Total 3300 ml 5050 ml 2500 ml 2000 ml # Bowel Movements 0 0 0 0 Result Diagram: 01/28/17 0530 01/28/17 0530 Imaging No new imaging ordered, pending, or resulted within the past 24 hours. Objective Remarks GENERAL: Pt laying abed, morbidly obese, upper body shirtless, lower portion covered with sheet. SKIN: Warm and dry. Right leg amputated, catheter noted to be exiting lower portion of his body. Healing ecchymosis noted right upper arm. HEAD: Normocephalic. EYES: No scleral icterus. No injection or drainage. NECK: Supple, trachea midline. No lymphadenopathy. Pt stopped examinaer during palpitation of neck due to discomfort. CARDIOVASCULAR: Regular rate and rhythm without murmurs, gallops, or rubs. RESPIRATORY: Breath sounds equal bilaterally. No diminishment of breath sounds noted upon examination. No accessory muscle use. GASTROINTESTINAL: Abdomen soft and nondistended. Tenderness elicited CAMRON quadrant. Bowel sounds present in all quadrants. MUSCULOSKELETAL: No cyanosis, or edema. 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 PSYCHIATRIC: Pt A&Ox3, not evidencing overt signs of anxiety. Frustrations noted in subjective portion of exam. Paranoia seemingly less this am. Procedures 11/25- S/P flexible cystoscopy with replacement of kyle catheter Medications and IVs Current Medications Medications (Trade) Dose Ordered Sig/Shyam Route Start Time Stop Time Status Last Admin (NS Flush) 2 ml UNSCH PRN IV FLUSH 11/10/16 21:45 01/28/17 08:45 (Narcan Inj) 0.4 mg UNSCH PRN IV 11/10/16 21:45 (Xanax) 2 mg Q6HR PRN PO 11/11/16 02:00 01/28/17 06:08 (Vitamin C) 500 mg BID PO 11/11/16 09:00 01/28/17 08:51 (Lipitor) 40 mg DAILY PO 11/11/16 09:00 01/28/17 08:51 (Lioresal) 20 mg Q6HR PRN PO 11/11/16 02:00 01/28/17 06:09 (Peridex 0.12% Liq) 10 ml BID PRN SWISH-SPIT 11/11/16 02:00 (Lotrimin 1% Cream) 1 applic DAILY PRN TOPICAL 11/11/16 02:00 01/23/17 09:11 (Lasix) 40 mg BID PO 11/11/16 09:00 Hold 11/28/16 08:34 (Synthroid) 50 mcg DAILY@06 PO 11/11/16 06:00 01/28/17 05:17 (KCl) 20 meq DAILY PO 11/11/16 09:00 Hold 11/16/16 08:47 (Phenergan) 25 mg Q8HR PRN PO 11/11/16 02:00 01/15/17 13:18 (Pepcid) 20 mg DAILY PO 11/11/16 09:00 01/28/17 08:56 (Xarelto) 20 mg HS PO 11/11/16 21:00 01/27/17 21:21 (Mylicon Chew) 160 mg ACHS PRN CHEW 11/11/16 02:00 01/09/17 13:42 (Zofran Inj) 4 mg Q6HR PRN IV PUSH 11/11/16 03:15 01/21/17 01:38 (D50w (Vial) Inj) 25 ml UNSCH PRN IV PUSH 11/12/16 11:45 (Glucagon Inj) 1 mg UNSCH PRN OTHER 11/12/16 11:45 (Tylenol) 650 mg Q4H PRN PO 11/18/16 17:30 01/21/17 07:01 (Santyl Oint) 1 applic DAILY TOPICAL 11/23/16 12:45 01/28/17 08:59 (Betadine 10% Oint) 1 applic DAILY TOPICAL 11/23/16 18:32 01/28/17 09:00 (Proamatine) 10 mg Q8HR PO 11/30/16 21:00 01/28/17 13:30 (Roxicodone) 30 mg Q4H PRN PO 12/06/16 12:30 01/28/17 10:26 (Wellbutrin Sr) 150 mg DAILY PO 12/10/16 16:15 01/28/17 08:57 (Lexapro) 20 mg HS PO 12/10/16 21:00 01/27/17 21:21 (Erin-Colace) 1 tab BID PO 12/10/16 21:00 01/28/17 08:50 (Ambien) 5 mg HS PRN PO 12/10/16 21:00 01/27/17 21:20 (Benadryl 2% Cream) 1 applic TID PRN TOPICAL 12/11/16 08:15 01/23/17 09:12 (Neurontin) 300 mg TID PO 12/12/16 18:00 01/28/17 13:30 (Detrol La) 4 mg HS PO 12/14/16 21:00 01/27/17 21:19 (Miralax) 17 gm DAILY PRN PO 12/19/16 09:45 01/28/17 08:52 (Desyrel) 200 mg HS@23 PO 12/21/16 23:00 01/28/17 01:30 (Lactulose Liq) 30 ml DAILY PRN PO 12/24/16 12:15 01/28/17 10:18 (Fleets Enema (Adult)) 133 ml UNSCH PRN RECTAL 12/26/16 11:45 12/26/16 12:49 (Levemir Inj) 32 units HS SQ 12/29/16 21:00 01/27/17 21:00 (Lotrimin 1% Cream) 1 applic Q12HR TOPICAL 01/01/17 09:00 01/28/17 09:00 (Lactinex) 1 tab TID PO 01/02/17 13:00 01/28/17 13:30 (Clear Eyes Redness Relief 0.012% Opth Soln) 1 drop Q6H PRN RIGHT EYE 01/02/17 13:45 01/07/17 09:27 (Heparin Central Flush) See Protocol DAILY IV FLUSH 01/06/17 09:00 01/28/17 08:46 (Heparin Central Flush) See Protocol UNSCH PRN IV FLUSH 01/05/17 18:30 01/26/17 04:40 (Oramorph Sr) 100 mg Q8H PO 01/10/17 06:00 01/28/17 13:30 (Milk Of Magnesia Liq) 30 ml DAILY PRN PO 01/14/17 16:45 01/28/17 08:52 (Ditropan) 10 mg Q8HR PO 01/15/17 14:00 01/28/17 13:30 (Oramorph Sr) 60 mg Q8H PO 01/19/17 14:00 01/28/17 13:30 Insulin Aspart 7 units 7 units TIDAC SQ 01/19/17 12:00 01/28/17 09:12 (NS 1000 ml Inj) 1,000 ml @ 125 mls/hr Q8H IV 01/21/17 09:15 01/28/17 09:01 (Magic Mouthwash Adult Liq) 10 ml QID SWISH-SWAL 01/25/17 13:00 01/28/17 13:30 (Abilify) 2 mg HS PO 01/25/17 21:00 01/27/17 21:18 Urinary Catheter: Yes Assessment to: Continue Kyle insert reason: Prolonged Immobilization Date of Insertion: January 04, 2017 Line: PICC Side: Left A/P Problem List: (1) UTI (urinary tract infection) ICD Code: N39.0 Status: Resolved (2) Chronic pain ICD Code: G89.29 Status: Chronic (3) Type 2 diabetes mellitus ICD Code: E11.9 Status: Chronic (4) Morbidly obese ICD Code: E66.01 Status: Chronic (5) Depression ICD Code: F32.9 Status: Chronic (6) Pressure ulcer ICD Code: L89.90 Status: Chronic (7) Sleep apnea ICD Code: G47.30 Status: Chronic (8) Hypothyroidism ICD Code: E03.9 Status: Chronic (9) Acute hyperkalemia ICD Code: E87.5 Status: Acute Assessment and Plan 26 y/o male with a history of paraplegia, neurogenic bladder, HTN, chronic reoccurring DVT, chronic pain, LAKA, sleep apnea, CHF was brought into the ED as a parker act because he was threatening staff and using a taser. At time of admission he reported feeling fatigued and experienced nausea and vomiting almost every night for the past month. Furthermore, he complained of hematuria and was told last year at [facility] he had gastric ulcers, but feels he is still bleeding. Last EGD done at [place] was 2012. He reported multiple wounds on his sacrum, back, right thigh and left hip, and has not had wound care in the 2 weeks preceding hospitalization. Patient also reported his Kyle catheter has not been replaced in 3 months and the last time required cystoscopy. Sepsis, resolved. -Suspected Recurrent UTI -Chronic indwelling catheter -Meropenem continued -Infectious disease has been consulted -Follow urine culture -Prior infection has been Escherichia coli related -Urology following -Ditropan Acute kidney injury -Follow renal function -Likely related to bladder infection Uncontrolled diabetes mellitus -Patient is noncompliant with diet -Continue insulins -Follow blood sugars -Insulin sliding scale -Encourage diabetic diet use Chronic pain. Home medications baclofen, morphine, oxycodone. Continue Oramorph. -Awaiting Palliative Care's input about Fentanyl patch. Sleep apnea Insomnia -CPAP at night -Patient uses Ambien and trazodone for sleep Severe obesity: -BMI 106.3. -Contributory to all health problems -Diet changed Chronic pressure ulcers: -Wound care team following. Anxiety and depression -No suicidal ideations -Continue Lexapro -Consult placed on 01/14 to psychiatry not completed, new psych consult placed. -Dr. Figueroa added Abilify 2 mg po qhs and placed nursing order for pt's french tutor be contacted for counselling. Hyperlipidemia: -Continue Lipitor. Hypothyroidism: -Continue levothyroxine. Constipation: -PRN laxatives. Thrush (on tongue) -Magic Mouthwash Sore throat: -Rapid Strep A test ordered. Results pending. DVT prophylaxis: -On Xarelto DNR status Palliative care following. Case discussed with pt, RN (Cassi) and Dr. Anthony. Discharge Planning difficult discharge. no accepting facility yet. 01/26/17: Pt no longer septic and not requiring IV antibiotics. Nurse collection manager of unit has inquired about possible transfer to [facility] for pt's ongoing needs. Discussed with Dr. Anthony. 01/28/17 Pt now stating he no longer wishes transfer. 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 Jan 28, 2017 14:31
[2017-01-28] MEDS: ONDANSETRON HCL 4 MG/2 ML VIAL IV PUSH PRN (15:45)
[2017-01-28 16:00] VITALS: BP 116/56; PULSE 87; RESP 16; TEMP 97.8; O2SAT 94
[2017-01-28 20:00] VITALS: BP 113/66; PULSE 101; RESP 20; TEMP 96.1; O2SAT 76; O2SAT 92
[2017-01-28] MEDS ORDERED: FUROSEMIDE 20 MG/2 ML VIAL IV PUSH ONE (21:30)
[2017-01-28 21:40] VITALS: O2SAT 99
[2017-01-28] MEDS: TOLTERODINE TARTRATE 4 MG CAP LA PO SCH (21:48)
[2017-01-28] MEDS: ESCITALOPRAM OXALATE 20 MG TAB PO SCH (21:48)
[2017-01-28] MEDS: RIVAROXABAN 20 MG TAB PO SCH (21:48)
[2017-01-28] MEDS: ARIPiprazole 2 MG TAB PO SCH (21:48)
--- NOTE | 2017-01-28 22:22 | RADRPT ---
EXAM DATE/TIME: 01/28/2017 21:57 [facility] COMPARISON: No previous studies available for comparison. INDICATIONS : Pneumonia MEDICAL HISTORY : Hypercholesterolemia. Gastroesophageal reflux disease. Methicillin-resistant SURGICAL HISTORY : Fusion, lumbar. ENCOUNTER: Subsequent ACUITY: 1 week PAIN SCORE: Non-responsive. LOCATION: Bilateral chest FINDINGS: Bibasilar atelectasis/infiltrate noted, especially on the right. No large effusion seen. No pneumotho rax. There is moderate cardiomegaly, appears increased and somewhat globular. A pericardial effusion would be possible. CONCLUSION: Bibasilar consolidation and cardiomegaly. Please see above. Elliott Livingston MD on January 28, 2017 at 22:17 Board Certified Radiologist. This report was verified electronically.
[2017-01-29] VITALS (10 sets, daily range): BP systolic 110–150; BP diastolic 53–65; PULSE 92–108; RESP 15–20; TEMP 95–98.2; O2SAT 92–99
[2017-01-29] MEDS: MORPHINE SULFATE 100 MG CONTROLLED RELEASE TAB PO SCH ×3 (04:39→23:11)
[2017-01-29] MEDS: LEVOTHYROXINE SODIUM 50 MCG TAB PO SCH (04:39)
[2017-01-29] MEDS: MIDODRINE 5 MG TAB PO SCH ×3 (04:39→23:08)
[2017-01-29] MEDS: OXYBUTYNIN CHLORIDE 5 MG TAB PO SCH ×3 (04:39→23:09)
[2017-01-29] MEDS: MORPHINE SULFATE 60 MG CONTROLLED RELEASE TAB PO SCH ×3 (04:39→23:11)
[2017-01-29] MEDS: INSULIN DETEMIR 100 UNITS/ML VIAL SQ SCH ×2 (04:41→21:00)
[2017-01-29] MEDS: INSULIN ASPART SUPPLEMENTAL SCALE SQ SCH ×4 (04:42→21:00)
[2017-01-29] MEDS: BACLOFEN 20 MG TAB PO PRN ×2 (05:46→12:19)
[2017-01-29 06:21] LABS: HEMATOCRIT 31.9 % (39.0-51.0); MEAN CELL VOLUME 78.5 FL (80.0-100.0); MEAN CORPUSCULAR HEMOGLOBIN 23.7 PG (27.0-34.0); MEAN CORPUSCULAR HGB CONC 30.3 % (32.0-36.0); PLATELET COUNT 346 TH/MM3 (150-450); RED BLOOD COUNT 4.06 MIL/MM3 (4.50-5.90); RED CELL DISTRIBUTION WIDTH 22.5 % (11.6-17.2); REVIEW FLAG FINAL; WHITE BLOOD COUNT 13.8 TH/MM3 (4.0-11.0)
[2017-01-29] MEDS ORDERED: AZITHROMYCIN INJ 500 MG in SODIUM CHLOR 0.9% 250 ML INJ 250 ML IV SCH (07:00)
[2017-01-29] MEDS ORDERED: Vancomycin Consult Pharmacy 1 EA OTHER SCH (07:00)
[2017-01-29] MEDS: NYSTAT/DIPHENHY/LIDO MOUTHWASH (Adult) 120ML SWISH-SWAL SCH ×4 (07:42→23:10)
[2017-01-29] MEDS: metroNIDAZOLE 500 MG INJ 100 ML IV SCH ×3 (07:44→18:11)
[2017-01-29] MEDS: LACTOBACILLUS ACIDOPHILUS TAB PO SCH ×3 (07:48→17:12)
[2017-01-29] MEDS: ASCORBIC ACID 500 MG TAB PO SCH ×2 (07:48→23:09)
[2017-01-29] MEDS: buPROPion HCL 150 MG SUSTAINED RELEASE TAB PO SCH (07:49)
[2017-01-29] MEDS: ATORVASTATIN 40 MG TAB PO SCH (07:49)
[2017-01-29] MEDS: DOCUSATE SODIUM 50 MG/SENNA 8.6 MG TAB PO SCH ×2 (07:49→23:09)
[2017-01-29] MEDS: FAMOTIDINE 20 MG TAB PO SCH (07:49)
[2017-01-29] MEDS: GABAPENTIN 300 MG CAP PO SCH ×3 (07:49→17:12)
[2017-01-29] MEDS: SODIUM CHLOR 0.9% 1000 ML INJ 1,000 ML IV SCH ×3 (07:50→23:13)
[2017-01-29] MEDS: CLOTRIMAZOLE 1% CREAM 15 GM TOPICAL SCH ×2 (07:51→23:10)
[2017-01-29] MEDS: COLLAGENASE OINT 30 GM TUBE TOPICAL SCH (07:51)
[2017-01-29] MEDS: POVIDONE IODINE 10% OINT 30 GM TUBE TOPICAL SCH (07:51)
[2017-01-29] MEDS: INSULIN ASPART 1,000 UNITS/10 ML VIAL SQ SCH ×3 (07:57→17:00)
[2017-01-29] MEDS ORDERED: VANCOMYCIN 1,500 MG/NS 500 ML IV ONE ×2 (08:00)
[2017-01-29] MEDS: AZITHROMYCIN INJ 500 MG in SODIUM CHLOR 0.9% 250 ML INJ 250 ML IV SCH (08:02)
--- NOTE | 2017-01-29 15:16 | HHI.PR ---
Subjective Remarks Follow-up visit paraplegic, chronic pain, neurogenic bladder with suprapubic catheter use, urosepsis. Patient seen and examined today. Lying in bed. Pt with multiple complaints: urine leaking from his catheter, lethargy, and "not feeling well." Pt denied cough, fever, abdominal pain, NVD, bloody urine or stool. He did endorse shortness of breath and lethargy. RN (Cassi) reported acute changes of overnight: pt had episode of oxygen desaturation requiring increased oxygen. Pt had chest x-ray which indicated consolidation and infiltrates. Antibiotics initiated. RN again reported pt had not had a bowel movement since 01/22 and had administered prescribed cathartic agents. RN stated pt's Kyle was attended to and pt continues to be saturated with urine. said Dr. Corral (urology) was contacted and would be seeing pt today. No new issues or concerns, other than above,noted. Objective Vitals Vital Signs Date Time Temp Pulse Resp B/P Pulse Ox O2 Delivery O2 Flow Rate FiO2 01/29/17 13:22 99 35 01/29/17 13:00 98 01/29/17 12:00 108 15 122/53 01/29/17 08:30 94 21 01/29/17 08:00 97.0 103 18 130/58 94 01/29/17 04:04 92 21 01/29/17 01:08 99 35 01/29/17 00:00 96.8 101 20 110/62 94 01/28/17 21:40 99 35 01/28/17 20:00 96.1 101 20 113/66 92 01/28/17 20:00 76 01/28/17 16:00 97.8 87 16 116/56 94 I/O 01/28/17 01/28/17 01/28/17 01/29/17 01/29/17 01/29/17 07:00 15:00 23:00 07:00 15:00 23:00 Intake Total 2421 ml 2161 ml 240 ml 2175 ml Output Total 2000 ml 1200 ml Balance 421 ml 961 ml 240 ml 2175 ml Intake Oral 480 ml 240 ml 240 ml IV Total 1941 ml 1921 ml 2175 ml Output Urine Total 2000 ml 1200 ml Bladder Scan Volume Amount 296 ml # Voids 3 # Bowel Movements 0 Result Diagram: 01/29/17 0510 01/28/17 0530 Imaging Last Impressions Chest X-Ray 01/28/17 0000 Signed Impressions: Service Date/Time: Saturday, January 28, 2017 21:57 - CONCLUSION: Bibasilar consolidation and cardiomegaly. Please see above. Elliott Livingston MD Pelvis X-Ray 01/22/17 0000 Signed Impressions: Service Date/Time: Sunday, January 22, 2017 15:53 - CONCLUSION: The urinary catheter does not appear to be in the bladder. Ellis Melo MD Objective Remarks GENERAL: Pt laying abed, morbidly obese, upper body shirtless, lower portion covered with sheet. Patient did not appear acutely ill. SKIN: Warm and dry. Right leg amputated, catheter noted to be exiting lower portion of his body. Healing ecchymosis noted right upper arm. HEAD: Normocephalic. EYES: No scleral icterus. No injection or drainage. NECK: Supple, trachea midline. No lymphadenopathy. CARDIOVASCULAR: Regular rate and rhythm without murmurs, gallops, or rubs. RESPIRATORY: Breath sounds equal bilaterally. Bilateral basilar diminishment of breath sounds noted upon examination. No accessory muscle use. GASTROINTESTINAL: Abdomen soft and nondistended. No tenderness elicited. Bowel sounds present in all quadrants. MUSCULOSKELETAL: No cyanosis, or edema. director of vocational training strength 5/5, upper extremity strength 5/5. PSYCHIATRIC: Pt A&Ox3, not evidencing overt signs of anxiety. Paranoia seemingly less this am. Procedures 11/25- S/P flexible cystoscopy with replacement of kyle catheter Medications and IVs Current Medications Medications (Trade) Dose Ordered Sig/Shyam Route Start Time Stop Time Status Last Admin (NS Flush) 2 ml UNSCH PRN IV FLUSH 11/10/16 21:45 01/28/17 08:45 (Narcan Inj) 0.4 mg UNSCH PRN IV 11/10/16 21:45 (Xanax) 2 mg Q6HR PRN PO 11/11/16 02:00 01/28/17 15:28 (Vitamin C) 500 mg BID PO 11/11/16 09:00 01/29/17 07:48 (Lipitor) 40 mg DAILY PO 11/11/16 09:00 01/29/17 07:49 (Lioresal) 20 mg Q6HR PRN PO 11/11/16 02:00 01/29/17 12:19 (Peridex 0.12% Liq) 10 ml BID PRN SWISH-SPIT 11/11/16 02:00 (Lotrimin 1% Cream) 1 applic DAILY PRN TOPICAL 11/11/16 02:00 01/23/17 09:11 (Lasix) 40 mg BID PO 11/11/16 09:00 Hold 11/28/16 08:34 (Synthroid) 50 mcg DAILY@06 PO 11/11/16 06:00 01/29/17 04:39 (KCl) 20 meq DAILY PO 11/11/16 09:00 Hold 11/16/16 08:47 (Phenergan) 25 mg Q8HR PRN PO 11/11/16 02:00 01/15/17 13:18 (Pepcid) 20 mg DAILY PO 11/11/16 09:00 01/29/17 07:49 (Xarelto) 20 mg HS PO 11/11/16 21:00 01/28/17 21:48 (Mylicon Chew) 160 mg ACHS PRN CHEW 11/11/16 02:00 01/09/17 13:42 (Zofran Inj) 4 mg Q6HR PRN IV PUSH 11/11/16 03:15 01/28/17 15:45 (D50w (Vial) Inj) 25 ml UNSCH PRN IV PUSH 11/12/16 11:45 (Glucagon Inj) 1 mg UNSCH PRN OTHER 11/12/16 11:45 (Tylenol) 650 mg Q4H PRN PO 11/18/16 17:30 01/21/17 07:01 (Santyl Oint) 1 applic DAILY TOPICAL 11/23/16 12:45 01/29/17 07:51 (Betadine 10% Oint) 1 applic DAILY TOPICAL 11/23/16 18:32 01/29/17 07:51 (Proamatine) 10 mg Q8HR PO 11/30/16 21:00 01/29/17 04:39 (Roxicodone) 30 mg Q4H PRN PO 12/06/16 12:30 01/29/17 12:20 (Wellbutrin Sr) 150 mg DAILY PO 12/10/16 16:15 01/29/17 07:49 (Lexapro) 20 mg HS PO 12/10/16 21:00 01/28/17 21:48 (Erin-Colace) 1 tab BID PO 12/10/16 21:00 01/29/17 07:49 (Ambien) 5 mg HS PRN PO 12/10/16 21:00 01/27/17 21:20 (Benadryl 2% Cream) 1 applic TID PRN TOPICAL 12/11/16 08:15 01/23/17 09:12 (Neurontin) 300 mg TID PO 12/12/16 18:00 01/29/17 12:20 (Detrol La) 4 mg HS PO 12/14/16 21:00 01/28/17 21:48 (Miralax) 17 gm DAILY PRN PO 12/19/16 09:45 01/28/17 08:52 (Desyrel) 200 mg HS@23 PO 12/21/16 23:00 01/28/17 01:30 (Lactulose Liq) 30 ml DAILY PRN PO 12/24/16 12:15 01/28/17 10:18 (Fleets Enema (Adult)) 133 ml UNSCH PRN RECTAL 12/26/16 11:45 12/26/16 12:49 (Levemir Inj) 32 units HS SQ 12/29/16 21:00 01/27/17 21:00 (Lotrimin 1% Cream) 1 applic Q12HR TOPICAL 01/01/17 09:00 01/29/17 07:51 (Lactinex) 1 tab TID PO 01/02/17 13:00 01/29/17 12:19 (Clear Eyes Redness Relief 0.012% Opth Soln) 1 drop Q6H PRN RIGHT EYE 01/02/17 13:45 01/07/17 09:27 (Heparin Central Flush) See Protocol DAILY IV FLUSH 01/06/17 09:00 01/29/17 07:48 (Heparin Central Flush) See Protocol UNSCH PRN IV FLUSH 01/05/17 18:30 01/26/17 04:40 (Oramorph Sr) 100 mg Q8H PO 01/10/17 06:00 01/29/17 04:39 (Milk Of Magnesia Liq) 30 ml DAILY PRN PO 01/14/17 16:45 01/28/17 08:52 (Ditropan) 10 mg Q8HR PO 01/15/17 14:00 01/29/17 04:39 (Oramorph Sr) 60 mg Q8H PO 01/19/17 14:00 01/29/17 04:39 Insulin Aspart 7 units 7 units TIDAC SQ 01/19/17 12:00 01/29/17 07:57 (NS 1000 ml Inj) 1,000 ml @ 125 mls/hr Q8H IV 01/21/17 09:15 01/29/17 07:50 (Magic Mouthwash Adult Liq) 10 ml QID SWISH-SWAL 01/25/17 13:00 01/29/17 12:21 Aripiprazole 2 mg 2 mg HS PO 01/25/17 21:00 01/28/17 21:48 Pharmacy Profile Note 0 ml @ 0 mls/hr UNSCH OTHER 01/29/17 07:00 Metronidazole 100 ml @ 100 mls/hr Q6H IV 01/29/17 07:00 01/29/17 12:20 (Zithromax Inj/ NS 250 ml Inj) 250 ml @ 250 mls/hr Q24H IV 01/29/17 08:00 01/29/17 08:02 Urinary Catheter: Yes Assessment to: Continue Kyle insert reason: Prolonged Immobilization Date of Insertion: January 04, 2017 Vascular Central Line Catheter: Yes Assessment to: Continue Line: PICC Side: Left A/P Problem List: (1) UTI (urinary tract infection) ICD Code: N39.0 Status: Resolved (2) Chronic pain ICD Code: G89.29 Status: Chronic (3) Type 2 diabetes mellitus ICD Code: E11.9 Status: Chronic (4) Morbidly obese ICD Code: E66.01 Status: Chronic (5) Depression ICD Code: F32.9 Status: Chronic (6) Pressure ulcer ICD Code: L89.90 Status: Chronic (7) Sleep apnea ICD Code: G47.30 Status: Chronic (8) Hypothyroidism ICD Code: E03.9 Status: Chronic (9) Acute hyperkalemia ICD Code: E87.5 Status: Acute Assessment and Plan 26 y/o male with a history of paraplegia, neurogenic bladder, HTN, chronic reoccurring DVT, chronic pain, LAKA, sleep apnea, CHF was brought into the ED as a parker act because he was threatening staff and using a taser. At time of admission he reported feeling fatigued and experienced nausea and vomiting almost every night for the past month. Furthermore, he complained of hematuria and was told last year at [facility] he had gastric ulcers, but feels he is still bleeding. Last EGD done at [place] was 2012. He reported multiple wounds on his sacrum, back, right thigh and left hip, and has not had wound care in the 2 weeks preceding hospitalization. Patient also reported his Kyle catheter has not been replaced in 3 months and the last time required cystoscopy. Pneumonia -Consolidation noted on chest xray -Vancomycin, Azithromycin, and Metronidazole initiated Chronic indwelling catheter -Pelvic xray ordered to check placement of catheter -Urology following Sepsis, resolved. -Suspected Recurrent UTI -Chronic indwelling catheter -Meropenem continued -Infectious disease has been consulted -Follow urine culture -Prior infection has been Escherichia coli related -Urology following -Ditropan Acute kidney injury -Follow renal function -Likely related to bladder infection Uncontrolled diabetes mellitus -Patient is noncompliant with diet -Continue insulins -Follow blood sugars -Insulin sliding scale -Encourage diabetic diet use Chronic pain. Home medications baclofen, morphine, oxycodone. Continue Oramorph. -Awaiting Palliative Care's input about Fentanyl patch. Sleep apnea Insomnia -CPAP at night -Patient uses Ambien and trazodone for sleep Severe obesity: -BMI 106.3. -Contributory to all health problems -Diet changed Chronic pressure ulcers: -Wound care team following. Anxiety and depression -No suicidal ideations -Continue Lexapro -Consult placed on 01/14 to psychiatry not completed, new psych consult placed. -Dr. Figueroa added Abilify 2 mg po qhs and placed nursing order for pt's head trimmer be contacted for counselling. Hyperlipidemia: -Continue Lipitor. Hypothyroidism: -Continue levothyroxine. Constipation: -PRN laxatives. Thrush (on tongue) -Magic Mouthwash Sore throat: -Rapid Strep A test negative. DVT prophylaxis: -On Xarelto DNR status Palliative care following. Case discussed with pt, RN (Cassi) and Dr. Anthony. Discharge Planning difficult discharge. no accepting facility yet. 01/26/17: Pt no longer septic and not requiring IV antibiotics. Nurse client integration manager of unit has inquired about possible transfer to [facility] for pt's ongoing needs. Discussed with Dr. Anthony. 01/28/17 Pt now stating he no longer wishes transfer. 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 LONI Jan 29, 2017 15:16
--- NOTE | 2017-01-29 16:40 | RADRPT ---
EXAM DATE/TIME: 01/29/2017 15:26 [facility] COMPARISON: No previous studies available for comparison. INDICATIONS : Montelongo catheter placement. MEDICAL HISTORY : Hypercholesterolemia. Gastroesophageal reflux disease. SURGICAL HISTORY : Fusion, lumbar. ENCOUNTER: Subsequent ACUITY: 2 weeks PAIN SCORE: 0/10 LOCATION: Bilateral pelvis FINDINGS: 3 views of the pelvis were obtained and are of limited diagnostic quality due to patient body habitus . A Montelongo catheter is visualized and the distal tip curls over the inferior aspect of the of pelvis n ear the expected location of the pubic symphysis. No other definite abnormality is seen given the malik hnique. CONCLUSION: Nearly nondiagnostic examination secondary to patient body habitus. I am able to visualize the Montelongo catheter with the distal aspect slightly curved overlying the inferior pelvis near the pubic symphysi s region. Elliott Fernandez MD on January 29, 2017 at 16:36 Board Certified Radiologist. This report was verified electronically.
[2017-01-29] MEDS: traZODone HCL 100 MG TAB PO SCH (23:00)
[2017-01-29] MEDS: ARIPiprazole 2 MG TAB PO SCH (23:09)
[2017-01-29] MEDS: RIVAROXABAN 20 MG TAB PO SCH (23:09)
[2017-01-29] MEDS: ESCITALOPRAM OXALATE 20 MG TAB PO SCH (23:09)
[2017-01-29] MEDS: TOLTERODINE TARTRATE 4 MG CAP LA PO SCH (23:09)
[2017-01-30] VITALS (7 sets, daily range): BP systolic 106–124; BP diastolic 56–60; PULSE 83–115; RESP 17–20; TEMP 96.9–98; O2SAT 92–99
[2017-01-30] MEDS: ALPRAZolam 1 MG TAB PO PRN (01:02)
[2017-01-30] MEDS: BACLOFEN 20 MG TAB PO PRN ×3 (01:02→17:51)
[2017-01-30] MEDS: metroNIDAZOLE 500 MG INJ 100 ML IV SCH ×4 (01:04→17:53)
[2017-01-30] MEDS: ZOLPIDEM TARTRATE 5 MG TAB PO PRN (01:49)
[2017-01-30] MEDS: OXYBUTYNIN CHLORIDE 5 MG TAB PO SCH ×2 (05:57→15:46)
[2017-01-30] MEDS: LEVOTHYROXINE SODIUM 50 MCG TAB PO SCH (05:57)
[2017-01-30] MEDS: MIDODRINE 5 MG TAB PO SCH ×2 (05:57→15:47)
[2017-01-30] MEDS: INSULIN DETEMIR 100 UNITS/ML VIAL SQ SCH ×2 (05:57→21:00)
[2017-01-30] MEDS: INSULIN ASPART SUPPLEMENTAL SCALE SQ SCH ×4 (06:04→21:00)
[2017-01-30] MEDS: INSULIN ASPART 1,000 UNITS/10 ML VIAL SQ SCH ×3 (08:00→17:00)
[2017-01-30] MEDS: GABAPENTIN 300 MG CAP PO SCH ×3 (08:56→17:51)
[2017-01-30] MEDS: FAMOTIDINE 20 MG TAB PO SCH (08:56)
[2017-01-30] MEDS: ASCORBIC ACID 500 MG TAB PO SCH ×2 (08:57→21:00)
[2017-01-30] MEDS: DOCUSATE SODIUM 50 MG/SENNA 8.6 MG TAB PO SCH ×2 (08:57→21:00)
[2017-01-30] MEDS: LACTOBACILLUS ACIDOPHILUS TAB PO SCH ×3 (08:57→17:51)
[2017-01-30] MEDS: ATORVASTATIN 40 MG TAB PO SCH (08:57)
[2017-01-30] MEDS: NYSTAT/DIPHENHY/LIDO MOUTHWASH (Adult) 120ML SWISH-SWAL SCH ×4 (08:58→21:00)
[2017-01-30] MEDS: buPROPion HCL 150 MG SUSTAINED RELEASE TAB PO SCH (08:58)
[2017-01-30] MEDS: COLLAGENASE OINT 30 GM TUBE TOPICAL SCH (09:00)
[2017-01-30] MEDS: CLOTRIMAZOLE 1% CREAM 15 GM TOPICAL SCH ×2 (09:00→21:00)
[2017-01-30] MEDS: POVIDONE IODINE 10% OINT 30 GM TUBE TOPICAL SCH (09:00)
[2017-01-30] MEDS: MORPHINE SULFATE 60 MG CONTROLLED RELEASE TAB PO SCH ×2 (09:13→15:47)
[2017-01-30] MEDS: MORPHINE SULFATE 100 MG CONTROLLED RELEASE TAB PO SCH ×2 (09:13→15:47)
[2017-01-30] MEDS: SODIUM CHLOR 0.9% 1000 ML INJ 1,000 ML IV SCH (09:15)
[2017-01-30] MEDS: AZITHROMYCIN INJ 500 MG in SODIUM CHLOR 0.9% 250 ML INJ 250 ML IV SCH (09:45)
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
[2017-01-30] MEDS: ONDANSETRON HCL 4 MG/2 ML VIAL IV PUSH PRN ×2 (12:09→17:51)
[2017-01-30] MEDS: VANCOMYCIN INJ 2,000 MG in SODIUM CHLORID 0.9% 500 ML INJ 500 ML IV SCH (17:50)
[2017-01-30] MEDS: TOLTERODINE TARTRATE 4 MG CAP LA PO SCH (21:00)
[2017-01-30] MEDS: ARIPiprazole 2 MG TAB PO SCH (21:00)
[2017-01-30] MEDS: ESCITALOPRAM OXALATE 20 MG TAB PO SCH (21:00)
[2017-01-30] MEDS: RIVAROXABAN 20 MG TAB PO SCH (21:00)
[2017-01-30] MEDS: traZODone HCL 100 MG TAB PO SCH (23:00)
[2017-01-31] VITALS (11 sets, daily range): BP systolic 106–132; BP diastolic 49–58; PULSE 64–108; RESP 13–26; TEMP 96–97.7; O2SAT 91–99
--- NOTE | 2017-01-31 00:05 | HHI.PR ---
Addendum to Inpatient Note Addendum Reason: Additional Documentation Additional Information Rapid response was called on this patient because he was found to be unresponsive, almost comatose. I was called stat for this. Ordered ABG stat. Came to see patient at the bedside. Chart reviewed. Patient is known to me from his prior hospitalization. Patient is morbidly obese, with severe obstructive sleep apnea. According to nursing staff, he has been refusing C Pap for the past few days and definitely did not have one tonight. Therefore had ordered for BiPAP stat. Patient is DNR. Additional information from nursing staff also reported that about a week ago or so, patient was found to have a bag of opiates next to his bed brought in by his friends. On examination, patient is obtunded, not responsive even to severe sternal rub. He was being ambubagged by respiratory therapist at the bedside. Impression: Acute hypercapnic respiratory failurewith impending cardiac pulmonary arrest multifactorial. Noncompliance, opiate overdose. Opiate overdosecontributing to the above Noncompliance with C Pap in a patient with severe sleep apnea Plan: Narcan 0.4 mg IV stat was given. Patient did wake up after this and started moving his arms around although not completely back to his baseline Placed BiPAP 15 over 5, FiO2 to keep O2 sat around 90%. Avoid high FiO2. ABG stat was done. Results reviewed. PH of 6.91 with PCO2 of 143. Transfer patient to ICU stat. Continue BiPAP. Discussed with bow stapler customer sales consultant. Patient will be transferred to bow stapler service for critical care management. Critical care 30 minutes Gema Garcia MD Jan 31, 2017 00:05
--- NOTE | 2017-01-31 00:20 | HHI.PR ---
Addendum to Inpatient Note Addendum Reason: Additional Documentation Additional Information S: Per RT report, pt is non-compliant with BiPAP. Per nurse report, pt refused vital signs monitoring at 19:30. Then, when nursing staff came in to measure vital signs and administer medications, pt was found to be unresponsive with low pulse ox to the 70s. Thus, [facility] was called. Resident team was notified via telephone call. Resident team arrived to find RT at bedside providing patient with PPV via BVM. Stayed at bedside while Dr. Garcia discussed case with sales service coordinator who recommended Narcan and BiPAP. Patient seemed to respond to Narcan IV, almost immediately seemed back to baseline of trying to pull off BiPAP mask. O: Vitals: Pulse 110's, oxygen saturation 93% Gen: morbidly obese man unresponsive in respiratory failure, not responding to sternal rubs or other painful stimuli. Patient seemed to respond to Narcan IV, almost immediately afterward trying to pull off BiPAP mask. HEENT: pupils 3-4 mm CV: extremities warm and well perfused Resp: belly breathing A/P: 26yo morbidly obese paraplegic with complicated medical history and no code /DNR order presents unresponsive in respiratory failure. Stayed at bedside until care was assumed by Dr. Garcia. BiPAP and Narcan ABG results read over phone, difficult to hear, but notable for pH of 6.9, PCO2 over 100. Consult sales service coordinator Transfer patient to ICU Onesimo Nunes MD R1 Jan 31, 2017 00:19
[2017-01-31] MEDS ORDERED: DEXMEDETOMIDINE INJ 200 MCG in SODIUM CHLORIDE 0.9% INJ 50 ML IV SCH (01:00)
[2017-01-31] MEDS: SODIUM CHLOR 0.9% 1000 ML INJ 1,000 ML IV SCH (01:15)
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
[2017-01-31] MEDS: metroNIDAZOLE 500 MG INJ 100 ML IV SCH ×4 (01:24→21:48)
[2017-01-31 01:46] LABS: BLOOD GAS BASE EXCESS -4.7 mmol/L (-2-2); BLOOD GAS CARBOXYHEMOGLOBIN 1.4 % (0-4); BLOOD GAS HCO3 27 mmol/L (22-26); BLOOD GAS O2 HGB SATURATION 93 % (90-100); BLOOD GAS OXYGEN CONTENT 12.6 Vol % (12.0-20.0); BLOOD GAS PCO2 143 mmHg (38-42); BLOOD GAS PO2 103 mmHg (61-120); BLOOD GAS TOTAL HGB 9.6 G/DL (12.0-16.0); CRITICAL VALUE YES; TEMP CORR TO 98.6
[2017-01-31 01:47] LABS: DRAW SITE RT RADIAL; NUMBER OF ARTERIAL PUNCTURES 1; OXYGEN DEVICE NRB
[2017-01-31 02:29] LABS: BLOOD GAS BASE EXCESS -1.5 mmol/L (-2-2); BLOOD GAS CARBOXYHEMOGLOBIN 1.7 % (0-4); BLOOD GAS HCO3 28 mmol/L (22-26); BLOOD GAS METHEMOGLOBIN 0.9 % (0-2); BLOOD GAS O2 HGB SATURATION 93 % (90-100); BLOOD GAS OXYGEN CONTENT 11.9 Vol % (12.0-20.0); BLOOD GAS PCO2 97 mmHg (38-42); BLOOD GAS PO2 94 mmHg (61-120); BLOOD GAS TOTAL HGB 8.9 G/DL (12.0-16.0); TEMP CORR TO 98.6
[2017-01-31 02:32] LABS: CRITICAL VALUE YES; DRAW SITE LT RADIAL; FIO2 50 %; NUMBER OF ARTERIAL PUNCTURES 1; OXYGEN DEVICE BIPAP
[2017-01-31] MEDS: NALOXONE HCL 0.4 MG/ML AMP IV PRN ×3 (03:25→22:52)
[2017-01-31 03:51] LABS: AUTOMATED NEUTROPHIL # 11.5 TH/MM3 (1.8-7.7); BASOPHIL # 0.1 TH/MM3 (0-0.2); BASOPHIL % 0.7 % (0.0-2.0); EOSINOPHIL # 0.2 TH/MM3 (0-0.4); EOSINOPHIL % 1.3 % (0.0-4.0); HEMATOCRIT 30.3 % (39.0-51.0); LYMPH % 8.2 % (9.0-44.0); LYMPHOCYTE # 1.1 TH/MM3 (1.0-4.8); MEAN CELL VOLUME 80.1 FL (80.0-100.0); MEAN CORPUSCULAR HEMOGLOBIN 24.3 PG (27.0-34.0); MEAN CORPUSCULAR HGB CONC 30.4 % (32.0-36.0); MONO % 5.7 % (0.0-8.0); NEUT % 84.1 % (16.0-70.0); PLATELET COUNT 278 TH/MM3 (150-450); RED BLOOD COUNT 3.78 MIL/MM3 (4.50-5.90); RED CELL DISTRIBUTION WIDTH 23.1 % (11.6-17.2); WHITE BLOOD COUNT 13.7 TH/MM3 (4.0-11.0)
[2017-01-31 03:53] LABS: HEMO FLAGS AUTO DIFF
[2017-01-31 04:08] LABS: BICARBONATE 32.1 MEQ/L (21.0-32.0); POTASSIUM 5.4 MEQ/L (3.5-5.1)
[2017-01-31 04:20] LABS: SCAN/DIFF AUTO DIFF CONFIRMED
[2017-01-31] MEDS ORDERED: SODIUM POLYSTYRENE SULFONATE SUSP 15 GM/60 ML CUP PO ONE (04:30)
[2017-01-31] MEDS ORDERED: CALCIUM GLUCONATE INJ 1 GM in DEXTROSE 5% IN WATER 100ML INJ 100 ML IV ONE ×2 (04:30)
[2017-01-31] MEDS: MIDODRINE 5 MG TAB PO SCH ×3 (04:44→21:49)
[2017-01-31] MEDS: LEVOTHYROXINE SODIUM 50 MCG TAB PO SCH (04:44)
[2017-01-31] MEDS ORDERED: NALOXONE HCL 0.4 MG/ML AMP IV PUSH ONE (05:15)
[2017-01-31] MEDS ORDERED: ONDANSETRON HCL 4 MG/2 ML VIAL IV PUSH PRN (05:15)
[2017-01-31] MEDS: OXYBUTYNIN CHLORIDE 5 MG TAB PO SCH ×3 (05:15→21:49)
[2017-01-31 06:25] LABS: FIO2 100 %; LITER FLOW 15 L/M; ULNAR PULSE PRESENT
[2017-01-31 06:26] LABS: STAT YES; ULNAR PULSE PRESENT
[2017-01-31 06:26] LABS: STAT YES
[2017-01-31 06:26] LABS: BLOOD GAS BASE EXCESS -2.3 mmol/L (-2-2); BLOOD GAS CARBOXYHEMOGLOBIN 1.4 % (0-4); BLOOD GAS HCO3 27 mmol/L (22-26); BLOOD GAS METHEMOGLOBIN 0.8 % (0-2); BLOOD GAS O2 HGB SATURATION 97 % (90-100); BLOOD GAS OXYGEN CONTENT 13.1 Vol % (12.0-20.0); BLOOD GAS PCO2 105 mmHg (38-42); BLOOD GAS PO2 176 mmHg (61-120); BLOOD GAS TOTAL HGB 9.4 G/DL (12.0-16.0); OXYGEN DEVICE BIPAP; TEMP CORR TO 98.6
[2017-01-31] MEDS: INSULIN ASPART SUPPLEMENTAL SCALE SQ SCH ×4 (06:26→21:00)
[2017-01-31 06:27] LABS: DRAW SITE RT RADIAL; FIO2 70 %; NUMBER OF ARTERIAL PUNCTURES 1; STAT NO; VENT SETTINGS IPAP12/EPAP8
[2017-01-31] MEDS ORDERED: RESP: ALBUTEROL 2.5 MG/3 ML NEB (PRN) NEB (07:00)
[2017-01-31] MEDS: INSULIN DETEMIR 100 UNITS/ML VIAL SQ SCH (07:00)
[2017-01-31] MEDS: INSULIN ASPART 1,000 UNITS/10 ML VIAL SQ SCH ×3 (08:00→16:57)
--- NOTE | 2017-01-31 08:20 | RADRPT ---
EXAM DATE/TIME: 01/31/2017 07:43 [facility] COMPARISON: CHEST SINGLE AP, January 28, 2017, 21:57. INDICATIONS : Respiratory failure. MEDICAL HISTORY : Hypercholesterolemia. Gastroesophageal reflux disease. SURGICAL HISTORY : Fusion, lumbar. ENCOUNTER: Subsequent ACUITY: 2 weeks PAIN SCORE: Non-responsive. LOCATION: Bilateral chest FINDINGS: Limited view. A single view of the chest demonstrates rotation to the right. There is cardiomegaly. B ilateral pulmonary densities are again seen. Osseous structures are intact. CONCLUSION: 1. Cardiomegaly with bilateral pulmonary opacities. Yuval Hyatt MD on January 31, 2017 at 8:17 Board Certified Radiologist. This report was verified electronically.
[2017-01-31] MEDS: DOCUSATE SODIUM 50 MG/SENNA 8.6 MG TAB PO SCH ×2 (08:22→21:50)
[2017-01-31] MEDS: ATORVASTATIN 40 MG TAB PO SCH (08:22)
[2017-01-31] MEDS: FAMOTIDINE 20 MG TAB PO SCH (08:22)
[2017-01-31] MEDS: ASCORBIC ACID 500 MG TAB PO SCH ×2 (08:22→21:50)
[2017-01-31] MEDS: LACTOBACILLUS ACIDOPHILUS TAB PO SCH ×3 (08:22→18:00)
[2017-01-31] MEDS: buPROPion HCL 150 MG SUSTAINED RELEASE TAB PO SCH (08:23)
[2017-01-31] MEDS: NYSTAT/DIPHENHY/LIDO MOUTHWASH (Adult) 120ML SWISH-SWAL SCH ×4 (09:00→21:00)
[2017-01-31] MEDS: AZITHROMYCIN INJ 500 MG in SODIUM CHLOR 0.9% 250 ML INJ 250 ML IV SCH (09:08)
[2017-01-31] MEDS: RESP: ALBUTEROL 2.5 MG/IPRATROPIUM 0.5 MG NEB (SCH) NEB ×3 (10:00→20:24)
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
[2017-01-31 12:04] LABS: BICARBONATE 32.3 MEQ/L (21.0-32.0); POTASSIUM 5.2 MEQ/L (3.5-5.1)
[2017-01-31] MEDS: VANCOMYCIN INJ 2,000 MG in SODIUM CHLORID 0.9% 500 ML INJ 500 ML IV SCH (16:54)
[2017-01-31] MEDS: COLLAGENASE OINT 30 GM TUBE TOPICAL SCH (16:56)
[2017-01-31] MEDS: CLOTRIMAZOLE 1% CREAM 15 GM TOPICAL SCH ×2 (16:56→21:00)
[2017-01-31] MEDS: POVIDONE IODINE 10% OINT 30 GM TUBE TOPICAL SCH (16:57)
[2017-01-31] MEDS: ESCITALOPRAM OXALATE 20 MG TAB PO SCH ×2 (21:00→21:50)
[2017-01-31] MEDS: TOLTERODINE TARTRATE 4 MG CAP LA PO SCH (21:00)
[2017-01-31] MEDS: ARIPiprazole 2 MG TAB PO SCH ×2 (21:00→21:50)
[2017-01-31 21:08] LABS: MEAN CORPUSCULAR HGB CONC 29.9 % (32.0-36.0)
[2017-01-31] MEDS: RIVAROXABAN 20 MG TAB PO SCH (21:50)
[2017-01-31] MEDS: traZODone HCL 100 MG TAB PO SCH (22:29)
[2017-02-01] VITALS (13 sets, daily range): BP systolic 64–134; BP diastolic 44–69; PULSE 86–106; RESP 18–38; TEMP 97–99; O2SAT 90–100
[2017-02-01] MEDS: metroNIDAZOLE 500 MG INJ 100 ML IV SCH ×4 (00:28→16:56)
[2017-02-01] MEDS: RESP: ALBUTEROL 2.5 MG/IPRATROPIUM 0.5 MG NEB (SCH) NEB ×4 (03:58→19:54)
[2017-02-01 05:20] LABS: MEAN CELL VOLUME 80.6 FL (80.0-100.0); MEAN CORPUSCULAR HEMOGLOBIN 24.1 PG (27.0-34.0); PLATELET COUNT 234 TH/MM3 (150-450); RED CELL DISTRIBUTION WIDTH 22.5 % (11.6-17.2); REVIEW FLAG FINAL; WHITE BLOOD COUNT 10.7 TH/MM3 (4.0-11.0)
[2017-02-01 05:40] LABS: BICARBONATE 30.6 MEQ/L (21.0-32.0); POTASSIUM 4.5 MEQ/L (3.5-5.1)
[2017-02-01] MEDS: LEVOTHYROXINE SODIUM 50 MCG TAB PO SCH ×2 (05:59→08:34)
[2017-02-01] MEDS: OXYBUTYNIN CHLORIDE 5 MG TAB PO SCH ×3 (05:59→22:00)
[2017-02-01 06:01] LABS: BLOOD GAS BASE EXCESS -0.8 mmol/L (-2-2); BLOOD GAS CARBOXYHEMOGLOBIN 2.1 % (0-4); BLOOD GAS HCO3 27 mmol/L (22-26); BLOOD GAS METHEMOGLOBIN 0.5 % (0-2); BLOOD GAS O2 HGB SATURATION 93 % (90-100); BLOOD GAS OXYGEN CONTENT 11.7 Vol % (12.0-20.0); BLOOD GAS PCO2 79 mmHg (38-42); BLOOD GAS PO2 78 mmHG (61-120); BLOOD GAS TOTAL HGB 8.9 G/DL (12.0-16.0); TEMP CORR TO 98.6
[2017-02-01 06:02] LABS: CRITICAL VALUE YES; OXYGEN DEVICE BIPAP
[2017-02-01 06:03] LABS: DRAW SITE RT FOOT; FIO2 30 %; NUMBER OF ARTERIAL PUNCTURES 1; STAT NO; VENT SETTINGS IPAP=18 EPAP=8
[2017-02-01] MEDS: MIDODRINE 5 MG TAB PO SCH ×3 (06:17→22:01)
[2017-02-01] MEDS: INSULIN ASPART SUPPLEMENTAL SCALE SQ SCH ×4 (07:00→22:02)
[2017-02-01 07:27] LABS: CRITICAL VALUE YES; ULNAR PULSE PRESENT
[2017-02-01] MEDS: AZITHROMYCIN INJ 500 MG in SODIUM CHLOR 0.9% 250 ML INJ 250 ML IV SCH (08:00)
[2017-02-01] MEDS: INSULIN ASPART 1,000 UNITS/10 ML VIAL SQ SCH ×3 (08:00→16:55)
[2017-02-01] MEDS: buPROPion HCL 150 MG SUSTAINED RELEASE TAB PO SCH (08:33)
[2017-02-01] MEDS: DOCUSATE SODIUM 50 MG/SENNA 8.6 MG TAB PO SCH ×2 (08:33→22:28)
[2017-02-01] MEDS: LACTOBACILLUS ACIDOPHILUS TAB PO SCH ×3 (08:33→16:56)
[2017-02-01] MEDS: FAMOTIDINE 20 MG TAB PO SCH (08:34)
[2017-02-01] MEDS: COLLAGENASE OINT 30 GM TUBE TOPICAL SCH (08:34)
[2017-02-01] MEDS: POVIDONE IODINE 10% OINT 30 GM TUBE TOPICAL SCH (08:34)
[2017-02-01] MEDS: NYSTAT/DIPHENHY/LIDO MOUTHWASH (Adult) 120ML SWISH-SWAL SCH ×4 (08:34→22:02)
[2017-02-01] MEDS: ATORVASTATIN 40 MG TAB PO SCH (08:34)
[2017-02-01] MEDS: ASCORBIC ACID 500 MG TAB PO SCH ×2 (08:34→22:02)
[2017-02-01] MEDS: CLOTRIMAZOLE 1% CREAM 15 GM TOPICAL SCH ×2 (08:34→22:03)
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
[2017-02-01] MEDS ORDERED: PHARMACY ORDERED LAB ONE (15:45)
[2017-02-01] MEDS: VANCOMYCIN INJ 2,000 MG in SODIUM CHLORID 0.9% 500 ML INJ 500 ML IV SCH (16:00)
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
[2017-02-01] MEDS ORDERED: VANCOMYCIN INJ 1,750 MG in SODIUM CHLORID 0.9% 500 ML INJ 500 ML IV SCH (20:00)
[2017-02-01] MEDS: ARIPiprazole 2 MG TAB PO SCH (22:00)
[2017-02-01] MEDS: ESCITALOPRAM OXALATE 20 MG TAB PO SCH (22:01)
[2017-02-01] MEDS: RIVAROXABAN 20 MG TAB PO SCH (22:01)
[2017-02-01] MEDS: TOLTERODINE TARTRATE 4 MG CAP LA PO SCH (22:01)
[2017-02-01] MEDS: traZODone HCL 100 MG TAB PO SCH (22:08)
[2017-02-02] VITALS (13 sets, daily range): BP systolic 112–169; BP diastolic 69–88; PULSE 82–96; RESP 20–38; TEMP 98.1–99; O2SAT 92–99
[2017-02-02] MEDS: RESP: ALBUTEROL 2.5 MG/IPRATROPIUM 0.5 MG NEB (SCH) NEB ×4 (03:10→21:20)
[2017-02-02] MEDS: OXYBUTYNIN CHLORIDE 5 MG TAB PO SCH ×3 (06:46→20:37)
[2017-02-02] MEDS: MIDODRINE 5 MG TAB PO SCH ×3 (06:46→20:37)
[2017-02-02] MEDS: INSULIN ASPART SUPPLEMENTAL SCALE SQ SCH ×4 (06:46→20:27)
[2017-02-02] MEDS: INSULIN ASPART 1,000 UNITS/10 ML VIAL SQ SCH ×3 (08:00→17:00)
[2017-02-02] MEDS: ATORVASTATIN 40 MG TAB PO SCH (10:04)
[2017-02-02] MEDS: ASCORBIC ACID 500 MG TAB PO SCH ×2 (10:04→20:38)
[2017-02-02] MEDS: FAMOTIDINE 20 MG TAB PO SCH (10:04)
[2017-02-02] MEDS: buPROPion HCL 150 MG SUSTAINED RELEASE TAB PO SCH (10:05)
[2017-02-02] MEDS: LACTOBACILLUS ACIDOPHILUS TAB PO SCH ×3 (10:05→17:13)
[2017-02-02] MEDS: DOCUSATE SODIUM 50 MG/SENNA 8.6 MG TAB PO SCH ×2 (10:05→20:38)
[2017-02-02] MEDS: POVIDONE IODINE 10% OINT 30 GM TUBE TOPICAL SCH (10:07)
[2017-02-02] MEDS: NYSTAT/DIPHENHY/LIDO MOUTHWASH (Adult) 120ML SWISH-SWAL SCH ×4 (10:07→20:34)
[2017-02-02] MEDS: COLLAGENASE OINT 30 GM TUBE TOPICAL SCH (10:08)
[2017-02-02] MEDS: CLOTRIMAZOLE 1% CREAM 15 GM TOPICAL SCH ×2 (10:08→20:34)
[2017-02-02 10:47] LABS: MEAN CELL VOLUME 76.7 FL (80.0-100.0); MEAN CORPUSCULAR HEMOGLOBIN 23.8 PG (27.0-34.0); PLATELET COUNT 239 TH/MM3 (150-450); RED BLOOD COUNT 3.65 MIL/MM3 (4.50-5.90); RED CELL DISTRIBUTION WIDTH 23.1 % (11.6-17.2); REVIEW FLAG FINAL; WHITE BLOOD COUNT 10.1 TH/MM3 (4.0-11.0)
[2017-02-02 11:01] LABS: BICARBONATE 29.5 MEQ/L (21.0-32.0)
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
[2017-02-02] MEDS: ESCITALOPRAM OXALATE 20 MG TAB PO SCH (20:38)
[2017-02-02] MEDS: TOLTERODINE TARTRATE 4 MG CAP LA PO SCH (20:38)
[2017-02-02] MEDS: ARIPiprazole 2 MG TAB PO SCH (20:38)
[2017-02-02] MEDS: RIVAROXABAN 20 MG TAB PO SCH (20:38)
[2017-02-02] MEDS: traZODone HCL 100 MG TAB PO SCH (23:00)
[2017-02-03] VITALS (11 sets, daily range): BP systolic 147–172; BP diastolic 71–94; PULSE 88–148; RESP 20–34; TEMP 98.5–99.7; O2SAT 92–97
[2017-02-03] MEDS: RESP: ALBUTEROL 2.5 MG/IPRATROPIUM 0.5 MG NEB (SCH) NEB ×4 (04:00→21:02)
[2017-02-03] MEDS: LEVOTHYROXINE SODIUM 50 MCG TAB PO SCH (06:00)
[2017-02-03] MEDS: OXYBUTYNIN CHLORIDE 5 MG TAB PO SCH ×3 (06:00→21:40)
[2017-02-03] MEDS: MIDODRINE 5 MG TAB PO SCH ×3 (06:00→21:40)
[2017-02-03] MEDS: INSULIN ASPART SUPPLEMENTAL SCALE SQ SCH ×4 (06:42→21:00)
[2017-02-03 07:00] LABS: MEAN CELL VOLUME 75.7 FL (80.0-100.0); MEAN CORPUSCULAR HEMOGLOBIN 23.3 PG (27.0-34.0); MEAN CORPUSCULAR HGB CONC 30.7 % (32.0-36.0); PLATELET COUNT 253 TH/MM3 (150-450); RED BLOOD COUNT 3.69 MIL/MM3 (4.50-5.90); RED CELL DISTRIBUTION WIDTH 23.3 % (11.6-17.2); REVIEW FLAG FINAL; WHITE BLOOD COUNT 12.1 TH/MM3 (4.0-11.0)
[2017-02-03 07:29] LABS: BICARBONATE 25.8 MEQ/L (21.0-32.0); POTASSIUM 3.6 MEQ/L (3.5-5.1)
[2017-02-03] MEDS: NYSTAT/DIPHENHY/LIDO MOUTHWASH (Adult) 120ML SWISH-SWAL SCH ×4 (07:43→21:33)
[2017-02-03] MEDS: FAMOTIDINE 20 MG TAB PO SCH (07:44)
[2017-02-03] MEDS: LACTOBACILLUS ACIDOPHILUS TAB PO SCH ×3 (07:44→17:42)
[2017-02-03] MEDS: ASCORBIC ACID 500 MG TAB PO SCH ×2 (07:44→21:00)
[2017-02-03] MEDS: ATORVASTATIN 40 MG TAB PO SCH (07:44)
[2017-02-03] MEDS: DOCUSATE SODIUM 50 MG/SENNA 8.6 MG TAB PO SCH ×2 (07:44→21:00)
[2017-02-03] MEDS: buPROPion HCL 150 MG SUSTAINED RELEASE TAB PO SCH (07:45)
[2017-02-03] MEDS: POVIDONE IODINE 10% OINT 30 GM TUBE TOPICAL SCH (07:55)
[2017-02-03] MEDS: INSULIN ASPART 1,000 UNITS/10 ML VIAL SQ SCH ×3 (07:55→17:50)
[2017-02-03] MEDS: CLOTRIMAZOLE 1% CREAM 15 GM TOPICAL SCH ×2 (07:55→21:00)
[2017-02-03] MEDS: COLLAGENASE OINT 30 GM TUBE TOPICAL SCH (07:56)
--- NOTE | 2017-02-03 17:39 | HHI.PR ---
Addendum to Inpatient Note Addendum Reason: Additional Documentation Additional Information Medical Team paged for [facility] at approximately 1715 due to respiratory distress. Upon arrival patient was on BiPAP with respiratory therapist assistance. Dr. Carias, computer network support specialist, was at the bed side and will resume care per nursing staff. John Echeverria MD R1 Feb 03, 2017 17:39
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
[2017-02-03] MEDS ORDERED: PHARMACY ORDERED LAB ONE (19:45)
[2017-02-03] MEDS: ARIPiprazole 2 MG TAB PO SCH (21:00)
[2017-02-03] MEDS: RIVAROXABAN 20 MG TAB PO SCH (21:00)
[2017-02-03] MEDS: TOLTERODINE TARTRATE 4 MG CAP LA PO SCH (21:00)
[2017-02-03] MEDS: ESCITALOPRAM OXALATE 20 MG TAB PO SCH (21:00)
[2017-02-03] MEDS: traZODone HCL 100 MG TAB PO SCH (22:40)
[2017-02-04] VITALS (9 sets, daily range): BP systolic 158–182; BP diastolic 87–90; PULSE 84–97; RESP 20–34; TEMP 98.2–98.9; O2SAT 92–99
[2017-02-04] MEDS: RESP: ALBUTEROL 2.5 MG/IPRATROPIUM 0.5 MG NEB (SCH) NEB (03:03)
[2017-02-04 05:31] LABS: HEMATOCRIT 29.9 % (39.0-51.0); MEAN CELL VOLUME 75.6 FL (80.0-100.0); MEAN CORPUSCULAR HEMOGLOBIN 23.7 PG (27.0-34.0); MEAN CORPUSCULAR HGB CONC 31.3 % (32.0-36.0); PLATELET COUNT 281 TH/MM3 (150-450); RED BLOOD COUNT 3.96 MIL/MM3 (4.50-5.90); RED CELL DISTRIBUTION WIDTH 22.9 % (11.6-17.2); REVIEW FLAG FINAL
[2017-02-04] MEDS: LEVOTHYROXINE SODIUM 50 MCG TAB PO SCH (06:00)
[2017-02-04] MEDS: OXYBUTYNIN CHLORIDE 5 MG TAB PO SCH ×3 (06:00→22:07)
[2017-02-04] MEDS: MIDODRINE 5 MG TAB PO SCH ×3 (06:00→22:00)
[2017-02-04 06:02] LABS: BICARBONATE 24.2 MEQ/L (21.0-32.0); POTASSIUM 3.7 MEQ/L (3.5-5.1)
[2017-02-04] MEDS: INSULIN ASPART SUPPLEMENTAL SCALE SQ SCH ×4 (06:11→21:00)
[2017-02-04] MEDS: INSULIN ASPART 1,000 UNITS/10 ML VIAL SQ SCH ×3 (08:00→15:44)
[2017-02-04] MEDS: NYSTAT/DIPHENHY/LIDO MOUTHWASH (Adult) 120ML SWISH-SWAL SCH ×4 (08:48→22:02)
[2017-02-04] MEDS: LACTOBACILLUS ACIDOPHILUS TAB PO SCH ×3 (08:50→15:44)
[2017-02-04] MEDS: ASCORBIC ACID 500 MG TAB PO SCH ×2 (08:51→22:04)
[2017-02-04] MEDS: ATORVASTATIN 40 MG TAB PO SCH (08:51)
[2017-02-04] MEDS: FAMOTIDINE 20 MG TAB PO SCH (08:51)
[2017-02-04] MEDS: buPROPion HCL 150 MG SUSTAINED RELEASE TAB PO SCH (08:51)
[2017-02-04] MEDS: DOCUSATE SODIUM 50 MG/SENNA 8.6 MG TAB PO SCH ×2 (08:51→22:04)
[2017-02-04] MEDS: POVIDONE IODINE 10% OINT 30 GM TUBE TOPICAL SCH (08:52)
[2017-02-04] MEDS: CLOTRIMAZOLE 1% CREAM 15 GM TOPICAL SCH ×2 (08:52→21:00)
[2017-02-04] MEDS: COLLAGENASE OINT 30 GM TUBE TOPICAL SCH (08:52)
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
[2017-02-04] MEDS: ARIPiprazole 2 MG TAB PO SCH (22:04)
[2017-02-04] MEDS: TOLTERODINE TARTRATE 4 MG CAP LA PO SCH (22:05)
[2017-02-04] MEDS: ESCITALOPRAM OXALATE 20 MG TAB PO SCH (22:06)
[2017-02-04] MEDS: RIVAROXABAN 20 MG TAB PO SCH (22:06)
[2017-02-04] MEDS: traZODone HCL 100 MG TAB PO SCH (22:07)
[2017-02-05] VITALS (8 sets, daily range): BP systolic 146–152; BP diastolic 73–84; PULSE 97–103; RESP 20–24; TEMP 98.4–98.5; O2SAT 56–99
[2017-02-05] MEDS: MIDODRINE 5 MG TAB PO SCH (05:31)
[2017-02-05] MEDS: INSULIN ASPART SUPPLEMENTAL SCALE SQ SCH (05:31)
[2017-02-05] MEDS: OXYBUTYNIN CHLORIDE 5 MG TAB PO SCH (05:31)
[2017-02-05] MEDS: LEVOTHYROXINE SODIUM 50 MCG TAB PO SCH (05:31)
[2017-02-05 06:05] LABS: HEMATOCRIT 28.2 % (39.0-51.0); MEAN CELL VOLUME 75.1 FL (80.0-100.0); MEAN CORPUSCULAR HEMOGLOBIN 23.8 PG (27.0-34.0); MEAN CORPUSCULAR HGB CONC 31.7 % (32.0-36.0); PLATELET COUNT 252 TH/MM3 (150-450); RED BLOOD COUNT 3.76 MIL/MM3 (4.50-5.90); RED CELL DISTRIBUTION WIDTH 23.5 % (11.6-17.2); REVIEW FLAG FINAL; WHITE BLOOD COUNT 11.4 TH/MM3 (4.0-11.0)
[2017-02-05 06:28] LABS: BICARBONATE 22.1 MEQ/L (21.0-32.0); POTASSIUM 3.3 MEQ/L (3.5-5.1)
[2017-02-05] MEDS ORDERED: MORPHINE SULFATE 8 MG/ML INJ ONE ×3 (09:02→09:24)
[2017-02-05] MEDS ORDERED: LORazepam 2 MG/ML VIAL ONE (09:17)
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
[2017-02-05] MEDS ORDERED: MORPHINE SULFATE 8 MG/ML INJ IV PUSH PRN (09:45)
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
--- NOTE | 2017-02-05 09:47 | DEATH SUM ---
Pronouncement Date Pronounced : Feb 05, 2017 Time Of : 09:54 Pronouncement Called to pronounce of patient. Identified patient as Oswaldo Martin with wrist band MR# [id number]. Patient with no cardiac activity and no palpable/ auscible cardiac activity. Patient with no spontaneous respirations, no corneal reflex or response to painful stimuli. Pupils fixed and dilated. Preliminary Cause of : Respiratory arrest Colt Pablo MD Feb 05, 2017 09:47
[2017-02-05] MEDS ORDERED: LORazepam 2 MG/ML VIAL IV PUSH ONE (10:00)
[2017-02-05] MEDS ORDERED: MORPHINE SULFATE 4 MG/ML INJ IV PUSH ONE (10:00)
== END 2017-02-05 15:30 | disposition expired | DRG 698 ==
LOC: NEPA 12:44 → NEDA 21:42 → NEDH 11-11 02:20 → OBSVTOIN 11-11 08:05 → N05B 11-12 02:50 → N03A 11-29 16:15 → N07A 12-03 12:17 → N03A 01-31 00:27 → N04A 02-02 17:52
PROVIDERS: ADMIT Emergency Medicine; ATTEND Emergency Medicine
PROC: 0T2BX0Z Change Drainage Device in Bladder, External Approach (ICD-10-PCS; principal; 2016-11-11)
PROC: 5A09357 Assistance with Respiratory Ventilation, Less than 24 Consecutive Hours, Continuous Positive Airway Pressure (ICD-10-PCS; 2016-11-11)
PROC: 0T2BX0Z Change Drainage Device in Bladder, External Approach (ICD-10-PCS; 2016-11-25)
PROC: 0TJB8ZZ Inspection of Bladder, Via Natural or Artificial Opening Endoscopic (ICD-10-PCS; 2016-11-25)
PROC: 03HY32Z Insertion of Monitoring Device into Upper Artery, Percutaneous Approach (ICD-10-PCS; 2016-11-29)
PROC: 4A133B1 Monitoring of Arterial Pressure, Peripheral, Percutaneous Approach (ICD-10-PCS; 2016-11-29)
PROC: 4A133J1 Monitoring of Arterial Pulse, Peripheral, Percutaneous Approach (ICD-10-PCS; 2016-11-29)
PROC: 5A09357 Assistance with Respiratory Ventilation, Less than 24 Consecutive Hours, Continuous Positive Airway Pressure (ICD-10-PCS; 2017-02-03)
DX: T83.511A Infection and inflammatory reaction due to indwelling urethral catheter, initial encounter (principal); A41.51 Sepsis due to Escherichia coli [E. coli]; J96.02 Acute respiratory failure with hypercapnia; R65.21 Severe sepsis with septic shock; G93.40 Encephalopathy, unspecified; J18.9 Pneumonia, unspecified organism; I11.0 Hypertensive heart disease with heart failure; N17.9 Acute kidney failure, unspecified; I50.9 Heart failure, unspecified; L89.323 Pressure ulcer of left buttock, stage 3; B37.89 Other sites of candidiasis; E87.4 Mixed disorder of acid-base balance; G82.20 Paraplegia, unspecified; B37.0 Candidal stomatitis; I82.509 Chronic embolism and thrombosis of unspecified deep veins of unspecified lower extremity; Z68.45 Body mass index [BMI] 70 or greater, adult; L03.119 Cellulitis of unspecified part of limb; F11.20 Opioid dependence, uncomplicated; E66.01 Morbid (severe) obesity due to excess calories; G89.29 Other chronic pain; N39.0 Urinary tract infection, site not specified; T83.018A Breakdown (mechanical) of other urinary catheter, initial encounter; F32.9 Major depressive disorder, single episode, unspecified; G47.33 Obstructive sleep apnea (adult) (pediatric); F90.9 Attention-deficit hyperactivity disorder, unspecified type; J45.909 Unspecified asthma, uncomplicated; E78.00 Pure hypercholesterolemia, unspecified; I25.10 Atherosclerotic heart disease of native coronary artery without angina pectoris; K21.9 Gastro-esophageal reflux disease without esophagitis; N31.9 Neuromuscular dysfunction of bladder, unspecified; L98.491 Non-pressure chronic ulcer of skin of other sites limited to breakdown of skin; L89.892 Pressure ulcer of other site, stage 2; T87.89 Other complications of amputation stump; F91.8 Other conduct disorders; E11.65 Type 2 diabetes mellitus with hyperglycemia; R32 Unspecified urinary incontinence; E78.5 Hyperlipidemia, unspecified; E06.3 Autoimmune thyroiditis; F12.90 Cannabis use, unspecified, uncomplicated; F43.12 Post-traumatic stress disorder, chronic; F60.9 Personality disorder, unspecified; F63.9 Impulse disorder, unspecified; L89.519 Pressure ulcer of right ankle, unspecified stage; L89.899 Pressure ulcer of other site, unspecified stage; L89.311 Pressure ulcer of right buttock, stage 1; G47.00 Insomnia, unspecified; Z91.19 Patient's noncompliance with other medical treatment and regimen; Z91.11 Patient's noncompliance with dietary regimen; Z79.4 Long term (current) use of insulin; Z87.11 Personal history of peptic ulcer disease; Z87.440 Personal history of urinary (tract) infections; R31.0 Gross hematuria; E65 Localized adiposity; Z51.5 Encounter for palliative care; T83.031A Leakage of indwelling urethral catheter, initial encounter; Y73.2 Prosthetic and other implants, materials and accessory gastroenterology and urology devices associated with adverse incidents; K59.00 Constipation, unspecified; N32.89 Other specified disorders of bladder; Z66 Do not resuscitate; E87.5 Hyperkalemia; F22 Delusional disorders; F40.240 Claustrophobia; D50.9 Iron deficiency anemia, unspecified; Z98.1 Arthrodesis status; Z91.14 Patient's other noncompliance with medication regimen; T40.2X1A Poisoning by other opioids, accidental (unintentional), initial encounter; Y92.239 Unspecified place in hospital as the place of occurrence of the external cause; H57.8 Other specified disorders of eye and adnexa; R19.7 Diarrhea, unspecified; Z74.01 Bed confinement status; R09.2 Respiratory arrest
CPT/HCPCS: 36556; 36569; 36600; 71010; 72170; 76937; 80048; 80053; 80202; 80307; 81001; 82565; 82805; 82947; 82948; 83036; 83605; 83735; 84100; 84132; 84443; 85025; 85027; 86403; 87040; 87070; 87077; 87081; 87086; 87147; 87186; 87205; 87493; 87641; 87880; 94002; 94003; 94150; 94640; 94667; 94668; 96372; C1769; J0131; J0456; J0610; J1120; J1170; J1335; J1450; J1642; J1815; J1940; J1956; J2020; J2060; J2185; J2270; J2310; J2405; J3300; J3370; J7030; J7040; J7050; J7613; P9045; Q0169